=== PATIENT | female | born 1970 | race African-American/Black ===

== ENCOUNTER 2017-03-09 14:08 | Inpatient (IN) | payer OTHER ==
--- NOTE | 2017-03-09 14:27 | PDOC ---
History of Present Illness - General History Source: Patient, Other (Neurologist, Dr. Gunner Osborne) - History of Present Illness Initial Comments: 03/09/17 14:36 The patient is a year-old woman with a significant past medical history of hypertension, asthma, chronic obstructive pulmonary disease, seizure disorder, polysubstance abuse (heroine) who presents to the emergency department via EMS for further evaluation of seizures. As per Neurologist, Dr. Gunner Osborne, who is presently at the bedside, the patient walked to the office this morning for routine visit and seized approximately 5 times with positive urinary incontinence. EMS was activated. Upon ER arrival, patient was noted to be febrile to 99.9, hypertensive to 151/114, tachycardic 102 and hypoxic to 89% on room air. History of Present Illness is limited as patient is unresponsive. Allergies: Latex. Penicillin, Sulfamethoxazole, Trimethprim. Tomato Social History: Current some day cigarette smoker (approximately 5 cigarettes/ day). No EtOH use. History of heroine abuse. Started using PCP on and off ( approximately 4 bags)- 11 years ago <Mila Ruiz - Last Filed: 03/09/17 17:06> - General History Source: Patient, Family Exam Limitations: Clinical Condition <Leah Ann - Last Filed: 03/10/17 08:50> - General Chief Complaint: Seizure Stated Complaint: Seizure Time Seen by Provider: 03/09/17 14:16 Past History <Mila Ruiz - Last Filed: 03/09/17 17:06> - Past Medical History Anemia: No Asthma: Yes Cancer: No Cardiac Disorders: No CVA: No COPD: Yes Dementia: No Diabetes: No GI Disorders: No Disorders: No HTN: Yes Hypercholesterolemia: No Kidney Stones: No Suicide Attempt (Hx): No Seizures: Yes Thyroid Disease: No - Reproductive History PID: No - Psycho/Social/Smoking Cessation Hx Anxiety: No Suicidal Ideation: No Smoking Status: Yes Smoking History: Current some day smoker Have you smoked in the past 12 months: Yes Number of Cigarettes Smoked Daily: 5 'Breaking Loose' booklet given: 06/08/16 Hx Alcohol Use: No Drug/Substance Use Hx: Yes (pcp) Substance Use Type: None Hx Substance Use Treatment: Yes (Pt strted smoking PCP at 35 yo on and off, currently every day (4 bgs daily)) <Leah Ann - Last Filed: 03/10/17 08:50> - Past Medical History Allergies/Adverse Reactions: Allergies Allergy/AdvReac Type Severity Reaction Status Date / Time latex Allergy Intermediate Hives Verified 03/09/17 15:12 penicillin G Allergy Intermediate Hives Verified 03/09/17 15:12 sulfamethoxazole Allergy Intermediate Hives Verified 03/09/17 15:12 [From Bactrim] tomato [Tomato] Allergy Intermediate Swelling Verified 03/09/17 15:12 trimethoprim [From Bactrim] Allergy Intermediate Hives Verified 03/09/17 15:12 Unclassified Drug Allergy Intermediate HIVES---NUT Verified 03/09/17 15:12 S aspirin Allergy Unknown Verified 03/09/17 15:12 doxycycline Allergy Verified 03/09/17 15:12 Nut Flavor Allergy Verified 03/09/17 15:12 Sulfa (Sulfonamide Allergy Verified 03/09/17 15:12 Antibiotics) Home Medications: Ambulatory Orders Albuterol Sulfate [Proair Respiclick] 90 mcg IH DAILY 03/09/17 Baclofen 20 mg PO DAILY 03/09/17 Budesonide/Formeterol Fumarate [SYMBICORT 160/4.5mcg -] 1 inh PO BID 03/09/17 Divalproex Sodium [Depakote] 250 mg PO DAILY 03/09/17 Gabapentin [Neurontin] 100 mg PO DAILY 03/09/17 Lidocaine 4% Topical [Xylocaine 4% Topical] 1 applic MM DAILY 03/09/17 Montelukast Na [Singulair -] 10 mg PO HS 03/09/17 Naproxen [Naprosyn -] 500 mg PO BID 03/09/17 Quetiapine Fumarate [Seroquel -] 25 mg PO HS 03/09/17 Review of Systems - Review of Systems Able to Perform ROS?: No <Mila Ruiz - Last Filed: 03/09/17 17:06> *Physical Exam - Physical Exam Comments: 03/09/17 14:36 GENERAL: No response to painful stimuli. Breathing spontaneously. HEAD: Normal with no signs of trauma. EYES: Pupils are 4 mm bilaterally, responsive to light. Sclera anicteric, conjunctiva clear. ENT: Ears normal, nares patent, oropharynx clear without exudates. Dry mucous membranes. NECK: Normal range of motion, supple without lymphadenopathy, JVD, or masses. LUNGS: Breath sounds equal, clear to auscultation bilaterally. No wheezes, and no crackles. HEART:Tachycardic, Regular rate and rhythm, without murmur, rub or gallop. ABDOMEN: Soft, nontender, normoactive bowel sounds. No guarding, no rebound. EXTREMITIES: Normal range of motion, no edema. No clubbing or cyanosis. No erythema, or tenderness. NEUROLOGICAL: Limited. MUSCULOSKELETAL: Back non-tender to palpation, no CVA tenderness SKIN: Warm, Dry, normal turgor, no rashes or lesions noted. <Mila Ruiz - Last Filed: 03/09/17 17:06> Heart Score/ECG Review #1 ECG reviewed & interpreted by me at: 14:50 03/09/17 14:51 Twelve-lead EKG was performed and reviewed by me. There is normal sinus rhythm with a tachycardiac rate pf 115 bpm. The axis is normal. The intervals are normal. There are no ST or T wave abnormalities. <Leah Ann - Last Filed: 03/10/17 08:50> ED Treatment Course - LABORATORY CBC & Chemistry Diagram: 03/09/17 14:56 03/09/17 14:56 - RADIOLOGY Radiograph Interpretation: 03/09/17 16:14 EXAM: CT/HEAD CT WITHOUT CONTRAST Interpreted by Dr. Omar Pagan IMPRESSION: Since 06/05/2006, the ventricles and basal cisterns appear unremarkable. There is minimal volume loss which is nonspecific. No mass lesion , acute infarct or intracranial hemorrhage is identified. There is no shift of the midline structures. The calvarium is intact. Dural calcifications are noted in the right high convexity which is nonspecific. Visualized paranasal sinuses and mastoid air cells are well aerated EXAM: RAD/CHEST X-RAY PORTABLE Interpreted by Dr. Ilan Juarez IMPRESSION: A single frontal portable projection of the chest at 4:48 PM is submitted. The heart size is within normal limits. The lung marks are free of pulmonary infiltrates or pleural effusions. <Mila Ruiz - Last Filed: 03/09/17 17:06> - LABORATORY CBC & Chemistry Diagram: 03/10/17 06:15 03/10/17 06:15 <Leah Ann - Last Filed: 03/10/17 08:50> Medical Decision Making - Medical Decision Making 03/09/17 17:[address] Flaquito Jeffrey. 03/09/17 17:[address] Gunner Osborne. <Mila Ruiz - Last Filed: 03/09/17 17:06> - Medical Decision Making A portion of this note was documented by scribe services under my direction. I have reviewed the details of the note, within reason, and agree with the documentation with the following case summary and management plan written by me. Nursing documentation reviewed and incorporated into medical decision making 03/09/17 14:45 Pt presents via EMS from the Neurologist office Pt was seen in the ER by Dr Muir Briefly, pt has a history of seiuzures Pt reportedly had several seizures today (according to EMS 5 in total) No external trauma no nuchal rigidity Currently pt is post ictal and unable to give a history Pt is unresponsive to painful or verbal stimuli Pupils 4 mm bilaterally and responsive to light No deviation of gaze No nystagmus Will send labs Will send Utox Will give Tylenol for fever Will continunously re assess DD: status epilepticus, 03/09/17 17:[address] Shukla He would like pt to get Depakote 500mg IV and for her Depakote dose to increase While in his office, she had 3 seizures 03/09/17 17:23 Laboratory Tests 03/09/17 03/09/17 03/09/17 14:56 14:56 14:56 WBC 12.8 H D Hgb 13.1 Hct 39.3 Plt Count 320 D Neutrophils % 86.5 H Lymphocytes % 8.9 BUN 19 H D Creatinine 1.0 D Creatine Kinase Creatine Kinase Index Cancelled CK-MB (CK-2) Troponin I Valproic Acid 37.460 L Phencyclidine Screen 03/09/17 03/09/17 14:56 14:58 WBC Hgb Hct Plt Count Neutrophils % Lymphocytes % BUN Creatinine Creatine Kinase 183 Creatine Kinase Index CK-MB (CK-2) 1.914 Troponin I < 0.02 Valproic Acid Phencyclidine Screen Positive pt present in the ER states, pt had a single seizure yesterday but returned to her baseline As far as he knows, pt had been taking all her medications Clinical impression: status epilepticus, sub clinical seizures vs. post ictal state Pt remains unresponsive <Leah Ann - Last Filed: 03/10/17 08:50> *DC/Admit/Observation/Transfer - Attestations Scribe Attestion: 03/09/17 14:36 Documentation prepared by Mila Ruiz, acting as medical insurance coding specialist for Leah Ann MD. <Mila Ruiz - Last Filed: 03/09/17 17:06> - Discharge Dispostion Admit: Yes <Leah Ann - Last Filed: 03/10/17 08:50> Diagnosis at time of Disposition: Seizure disorder - Discharge Dispostion Condition at time of disposition: Stable - Referrals
[2017-03-09] MEDS ORDERED: SODIUM CHLORIDE 1,000 ML IV STA (14:30)
[2017-03-09] MEDS ORDERED: ACETAMINOPHEN INJECTION 100 ML IVPB ONE (14:38)
[2017-03-09] MEDS: ACETAMINOPHEN 1000 MG/100 ML VIAL (NON FORMULARY) IVPB ONE ×2 (14:48→14:49)
[2017-03-09 14:56] VITALS: BMI 21.4
[2017-03-09 15:17] LABS: VENOUS BLOOD GAS HCO3 29.4 meq/L (19-25)
[2017-03-09 15:18] LABS: VENOUS PH 7.39 (7.32-7.42)
[2017-03-09 15:23] LABS: URINE APPEARANCE CLEAR; URINE BILIRUBIN NEGATIVE (NEGATIVE); URINE COLOR LTYELLOW; URINE GLUCOSE (UA) NEGATIVE (NEGATIVE); URINE KETONE NEGATIVE (NEGATIVE); URINE NITRITE NEGATIVE (NEGATIVE); URINE PROTEIN NEGATIVE (NEGATIVE); URINE UROBILINOGEN NEGATIVE E.U./dl (0.2-1.0)
[2017-03-09 15:24] LABS: BASOPHIL 0.2 % (0-2.0); EOSINOPHIL 0.1 % (0-4.5); MCH 32.4 pg (25.7-33.7); MCHC 33.5 g/dl (32.0-36.0); MEAN CELL VOLUME 96.7 fl (80-96); MEAN PLT VOLUME 7.4 fl (7.5-11.1); NEUTROPHILS 86.5 % (42.8-82.8); PLATELET COUNT 320 K/MM3 (134-434); RDW 14.5 % (11.6-15.6); WHITE BLOOD COUNT 12.8 K/mm3 (4.0-10.0)
[2017-03-09 15:36] LABS: ALBUMIN 3.9 g/dl (3.4-5.0); BILIRUBIN,TOTAL 0.3 mg/dL (0.2-1.0); CALCIUM 10.1 mg/dL (8.5-10.1); COCKROFT - GAULT 61.574; TOT PROT 7.4 g/dl (6.4-8.2)
[2017-03-09 15:37] LABS: TROPONIN I < 0.02 ng/ml (0.00-0.05)
[2017-03-09 15:45] LABS: URINE BLOOD 2+ (NEGATIVE); URINE LEUK ESTERASE TRACE (NEGATIVE)
[2017-03-09 15:48] LABS: URINE RBC 11 /hpf (0-3); URINE WBC 4 /hpf (3-5)
[2017-03-09 16:08] LABS: URINE MARIJUANA THC NEGATIVE ng/ml (CUTOFF=50)
[2017-03-09] MEDS ORDERED: ONDANSETRON 4 MG/2 ML VIAL IVPB PRN (17:06)
--- NOTE | 2017-03-09 17:06 | HP ---
CHIEF COMPLAINT: Seizure PCP: None HISTORY OF PRESENT ILLNESS: This is a 46 year old female with a history of, asthma/COPD, seizure disorder, and polysubstance abuse brought into the ED by EMS. She reportedly walked in to the neurology office today asking to be seen, and then seized. EMS also noted seizure activity and urinary incontinence. The patient is unresponsive on my evaluation and history is obtained from the medical record as well as her neurologist, who met the patient in the ED. ER course was notable for: (1) SpO2 on arrival 89% (2) Head CT: no acute intracranial pathology (3) CXR: No acute process Recent Travel: PAST MEDICAL HISTORY: PAST SURGICAL HISTORY: Social History: History of heroin and PCP use Smoking: Current smoker (5 cigarettes/day) Alcohol: Unknown Drugs: PCP per urine tox, heroin per previous notes Family History: Allergies latex Allergy (Intermediate, Verified 03/09/17 15:12) Hives confirmed Margie Taylor RN penicillin G Allergy (Intermediate, Verified 03/09/17 15:12) Hives confirmed by Margie Taylor RN sulfamethoxazole [From Bactrim] Allergy (Intermediate, Verified 03/09/17 15:12) Hives Swelling & Esophageal irritation tomato [Tomato] Allergy (Intermediate, Verified 03/09/17 15:12) Swelling confimed by Margie Taylor RN 07/11/13 trimethoprim [From Bactrim] Allergy (Intermediate, Verified 03/09/17 15:12) Hives confirmed Margie Taylor RN 07/11/2013 Unclassified Drug Allergy (Intermediate, Verified 03/09/17 15:12) HIVES---NUTS NUTS aspirin Allergy (Unknown, Verified 03/09/17 15:12) confirmed Margie Taylor RN doxycycline Allergy (Verified 03/09/17 15:12) Nut Flavor Allergy (Verified 03/09/17 15:12) Sulfa (Sulfonamide Antibiotics) Allergy (Verified 03/09/17 15:12) HOME MEDICATIONS: Home Medications Medication Instructions Recorded Albuterol Sulfate [Proair 90 mcg IH DAILY 03/09/17 Respiclick] Baclofen 20 mg PO DAILY 03/09/17 Budesonide/Formeterol Fumarate 1 inh PO BID 03/09/17 [SYMBICORT 160/4.5mcg -] Divalproex Sodium [Depakote] 250 mg PO DAILY 03/09/17 Gabapentin [Neurontin] 100 mg PO DAILY 03/09/17 Lidocaine 4% Topical [Xylocaine 4% 1 applic MM DAILY 03/09/17 Topical] Montelukast Na [Singulair -] 10 mg PO HS 03/09/17 Naproxen [Naprosyn -] 500 mg PO BID 03/09/17 Quetiapine Fumarate [Seroquel -] 25 mg PO HS 03/09/17 REVIEW OF SYSTEMS Patient is unable to participate PHYSICAL EXAMINATION Vital Signs - 24 hr 03/09/17 03/09/17 03/09/17 14:52 15:08 16:53 Temperature 99.9 F H Pulse Rate 102 H Pulse Rate [ 85 82 Left] Respiratory 18 13 13 Rate Blood Pressure 151/114 Blood Pressure 125/85 118/95 [Arm] O2 Sat by Pulse 89 L 99 98 Oximetry (%) GENERAL: Obtunded. HEAD: Normal with no signs of trauma. EYES: Pupils equal, round and reactive to light, extraocular movements intact, sclera anicteric, conjunctiva clear. No lid lag. EARS, NOSE, THROAT: Ears normal, nares patent, oropharynx clear without exudates. Moist mucous membranes. NECK: Normal range of motion, supple without lymphadenopathy, JVD, or masses. LUNGS: Breath sounds equal, clear to auscultation bilaterally. No wheezes, and no crackles. No accessory muscle use. HEART: Regular rate and rhythm, normal S1 and S2 without murmur, rub or gallop. ABDOMEN: Soft, nontender, not distended, normoactive bowel sounds, no guarding, no rebound, no masses. No hepatomegaly or splenomegaly. MUSCULOSKELETAL: Normal range of motion at all joints. No bony deformities or tenderness. No CVA tenderness. UPPER EXTREMITIES: 2+ pulses, warm, well-perfused. No cyanosis. No clubbing. No peripheral edema. LOWER EXTREMITIES: 2+ pulses, warm, well-perfused. No calf tenderness. No peripheral edema. NEUROLOGICAL: E 1 V 1 M 1 = 3 SKIN: Warm, dry, normal turgor, no rashes or lesions noted, normal capillary refill. Laboratory Results - last 24 hr 03/09/17 03/09/17 03/09/17 14:56 14:56 14:56 WBC 12.8 H D RBC 4.06 Hgb 13.1 Hct 39.3 MCV 96.7 H MCHC 33.5 RDW 14.5 Plt Count 320 D MPV 7.4 L D Neutrophils % 86.5 H Lymphocytes % 8.9 Monocytes % 4.3 Eosinophils % 0.1 Basophils % 0.2 PTT (Actin FS) VBG pH POC VBG pCO2 POC VBG pO2 Mixed VBG HCO3 Sodium 144 Potassium 4.0 Chloride 102 Carbon Dioxide 29 Anion Gap 13 BUN 19 H D Creatinine 1.0 D Creat Clearance w eGFR 59.18 Random Glucose 104 D Lactic Acid Calcium 10.1 Total Bilirubin 0.3 D AST 23 D ALT 37 D Alkaline Phosphatase 68 D Creatine Kinase Creatine Kinase Index Cancelled CK-MB (CK-2) Troponin I Total Protein 7.4 Albumin 3.9 Urine Color Urine Appearance Urine pH Urine Protein Urine Glucose (UA) Urine Ketones Urine Blood Urine Nitrite Urine Bilirubin Urine Urobilinogen Ur Leukocyte Esterase Urine RBC Urine WBC Opiates Screen Methadone Screen Barbiturate Screen Valproic Acid 37.460 L Phencyclidine Screen Ur Amphetamines Screen MDMA (Ecstasy) Screen Benzodiazepines Screen Cocaine Screen U Marijuana (THC) Screen Blood Type Antibody Screen Spec Expiration Date 03/09/17 03/09/17 03/09/17 14:56 14:56 14:56 WBC RBC Hgb Hct MCV MCHC RDW Plt Count MPV Neutrophils % Lymphocytes % Monocytes % Eosinophils % Basophils % PTT (Actin FS) 34.9 H VBG pH POC VBG pCO2 POC VBG pO2 Mixed VBG HCO3 Sodium Potassium Chloride Carbon Dioxide Anion Gap BUN Creatinine Creat Clearance w eGFR Random Glucose Lactic Acid Calcium Total Bilirubin AST ALT Alkaline Phosphatase Creatine Kinase 183 Creatine Kinase Index 1.0 CK-MB (CK-2) 1.914 Troponin I < 0.02 Total Protein Albumin Urine Color Urine Appearance Urine pH Urine Protein Urine Glucose (UA) Urine Ketones Urine Blood Urine Nitrite Urine Bilirubin Urine Urobilinogen Ur Leukocyte Esterase Urine RBC Urine WBC Opiates Screen Methadone Screen Barbiturate Screen Valproic Acid Phencyclidine Screen Ur Amphetamines Screen MDMA (Ecstasy) Screen Benzodiazepines Screen Cocaine Screen U Marijuana (THC) Screen Blood Type O POSITIVE Antibody Screen Negative Spec Expiration Date 03/09/17 03/09/17 03/09/17 14:56 14:56 14:58 WBC RBC Hgb Hct MCV MCHC RDW Plt Count MPV Neutrophils % Lymphocytes % Monocytes % Eosinophils % Basophils % PTT (Actin FS) VBG pH POC VBG pCO2 POC VBG pO2 Mixed VBG HCO3 Sodium Potassium Chloride Carbon Dioxide Anion Gap BUN Creatinine Creat Clearance w eGFR Random Glucose Lactic Acid 1.348 Calcium Total Bilirubin AST ALT Alkaline Phosphatase Creatine Kinase Creatine Kinase Index CK-MB (CK-2) Troponin I Total Protein Albumin Urine Color Urine Appearance Urine pH Urine Protein Urine Glucose (UA) Urine Ketones Urine Blood Urine Nitrite Urine Bilirubin Urine Urobilinogen Ur Leukocyte Esterase Urine RBC Urine WBC Opiates Screen Negative Methadone Screen Negative Barbiturate Screen Negative Valproic Acid Phencyclidine Screen Positive Ur Amphetamines Screen Negative MDMA (Ecstasy) Screen Negative Benzodiazepines Screen Negative Cocaine Screen Negative U Marijuana (THC) Screen Negative Blood Type O POSITIVE Antibody Screen Cancelled Spec Expiration Date Cancelled 03/09/17 03/09/17 14:58 15:13 WBC RBC Hgb Hct MCV MCHC RDW Plt Count MPV Neutrophils % Lymphocytes % Monocytes % Eosinophils % Basophils % PTT (Actin FS) VBG pH 7.39 POC VBG pCO2 49.9 POC VBG pO2 65.8 H Mixed VBG HCO3 29.4 H Sodium Potassium Chloride Carbon Dioxide Anion Gap BUN Creatinine Creat Clearance w eGFR Random Glucose Lactic Acid Calcium Total Bilirubin AST ALT Alkaline Phosphatase Creatine Kinase Creatine Kinase Index CK-MB (CK-2) Troponin I Total Protein Albumin Urine Color Ltyellow Urine Appearance Clear Urine pH 5.0 Urine Protein Negative Urine Glucose (UA) Negative Urine Ketones Negative Urine Blood 2+ H Urine Nitrite Negative Urine Bilirubin Negative Urine Urobilinogen Negative Ur Leukocyte Esterase Trace H D Urine RBC 11 Urine WBC 4 Opiates Screen Methadone Screen Barbiturate Screen Valproic Acid Phencyclidine Screen Ur Amphetamines Screen MDMA (Ecstasy) Screen Benzodiazepines Screen Cocaine Screen U Marijuana (THC) Screen Blood Type Antibody Screen Spec Expiration Date ASSESSMENT/PLAN: 46 year old female s/p seizures, obtunded. Problem List - Problem (1) Unresponsive state Assessment/Plan: -Thought to be secondary to multiple seizures prior to arrival; follow up valproic acid and lamotrigine levels -Unknown if patient has true seizure disorder vs. pseudoseizures -remains unresponsive even to sternal rub >2h after arrival to ED, seems inconsistent with post-ictal state -was not given any AEDs, so obtunded state cannot be attributed to this -Must rule out other causes of altered mental status, including toxic metabolic encephalopathy -follow up blood and urine cultures -follow fever/WBC curve (WBC elevated at 12.8, may be secondary to seizure) -Drug screen is positive for PCP and prior notes indicate history of heroin abuse -Trial of Narcan 0.4mg IVP now -NPO -Admit to ICU for airway monitoring (GCS 3, but is maintaining airway currently) , neuro checks q1h Code(s): R41.89 - OTH SYMPTOMS AND SIGNS W COGNITIVE FUNCTIONS AND AWARENESS (2) Seizure disorder Assessment/Plan: -Re-start lamotrigine/valproic acid when taking po -Ativan 1mg q4h prn seizure -Neurology evaluated in ED and will follow Code(s): G40.909 - EPILEPSY, UNSP, NOT INTRACTABLE, WITHOUT STATUS EPILEPTICUS (3) COPD (chronic obstructive pulmonary disease) with emphysema Assessment/Plan: -DuoNebs prn -Resume home Symbicort when alert Code(s): J43.9 - EMPHYSEMA, UNSPECIFIED (4) HTN (hypertension) Assessment/Plan: -BP at goal, no home meds listed -Observe Code(s): I10 - ESSENTIAL (PRIMARY) HYPERTENSION (5) DVT prophylaxis Assessment/Plan: -Moderate risk -Lovenox 40mg sq daily Code(s): QDQ9300 - Visit type - Emergency Visit Emergency Visit: Yes ED Registration Date: 03/09/17 Care time: The patient presented to the Emergency Department on the above date and was hospitalized for further evaluation of their emergent condition. - New Patient This patient is new to me today: Yes Date on this admission: 03/11/17 - Critical Care Critical Care patient: Yes Total Critical Care Time (in minutes): 35 Critical Care Statement: The care of this patient involved high complexity decision making to prevent further life threatening deterioration of the patient 's condition and/or to evalute & treat vital organ system(s) failure or risk of failure.
[2017-03-09] MEDS ORDERED: SODIUM CHLORIDE 1,000 ML IV SCH (17:15)
[2017-03-09] MEDS ORDERED: VALPROATE SODIUM 500 MG/5 ML VIAL IVPB ONE (17:21)
[2017-03-09] MEDS ORDERED: NALOXONE HCL 0.4 MG/ML VIAL IVPUSH ONE (17:26)
--- NOTE | 2017-03-09 17:27 | CONSULT ---
Consult - text type - Consultation Consultation Note: Neurology History of Present Illness The patient is a 46 year-old woman with a significant past medical history of hypertension, asthma, chronic obstructive pulmonary disease, seizure disorder, polysubstance abuse (heroine) who presents to the emergency department via EMS for further evaluation of seizures. She was at my office but not known to me from my recollection, last seen by LAB ANIMAL TECHNICIAN in the office, had presented there today to be seen and then had seizure event in the office and sent to hospital. Per EMS had multiple seizure events. in ER was obtunded and not following commands. Appears to be postictal, seizures self resolved without requiring medication. Her vitals are hypertensive, tachy, and utox showed positive PCP. CT head completed and patient seen by me in ER. Past History - Past Medical History Anemia: No Asthma: Yes Cancer: No Cardiac Disorders: No CVA: No COPD: Yes Dementia: No Diabetes: No GI Disorders: No Disorders: No HTN: Yes Hypercholesterolemia: No Kidney Stones: No Suicide Attempt (Hx): No Seizures: Yes Thyroid Disease: No - Reproductive History PID: No - Psycho/Social/Smoking Cessation Hx Anxiety: No Suicidal Ideation: No Smoking Status: Yes Smoking History: Current some day smoker Have you smoked in the past 12 months: Yes Number of Cigarettes Smoked Daily: 5 'Breaking Loose' booklet given: 06/08/16 Hx Alcohol Use: No Drug/Substance Use Hx: Yes (pcp) Substance Use Type: None Hx Substance Use Treatment: Yes (Pt strted smoking PCP at 35 yo on and off, currently every day (4 bgs daily)) - Past Medical History Allergies/Adverse Reactions: Allergies Allergy/AdvReac Type Severity Reaction Status Date / Time latex Allergy Intermediate Hives Verified 03/09/17 15:12 penicillin G Allergy Intermediate Hives Verified 03/09/17 15:12 sulfamethoxazole Allergy Intermediate Hives Verified 03/09/17 15:12 [From Bactrim] tomato [Tomato] Allergy Intermediate Swelling Verified 03/09/17 15:12 trimethoprim [From Bactrim] Allergy Intermediate Hives Verified 03/09/17 15:12 Unclassified Drug Allergy Intermediate HIVES---NUT Verified 03/09/17 15:12 S aspirin Allergy Unknown Verified 03/09/17 15:12 doxycycline Allergy Verified 03/09/17 15:12 Nut Flavor Allergy Verified 03/09/17 15:12 Sulfa (Sulfonamide Allergy Verified 03/09/17 15:12 Antibiotics) Home Medications: Ambulatory Orders Albuterol Sulfate [Proair Respiclick] 90 mcg IH DAILY 03/09/17 Baclofen 20 mg PO DAILY 03/09/17 Budesonide/Formeterol Fumarate [SYMBICORT 160/4.5mcg -] 1 inh PO BID 03/09/17 Divalproex Sodium [Depakote] 250 mg PO DAILY 03/09/17 Gabapentin [Neurontin] 100 mg PO DAILY 03/09/17 Lidocaine 4% Topical [Xylocaine 4% Topical] 1 applic MM DAILY 03/09/17 Montelukast Na [Singulair -] 10 mg PO HS 03/09/17 Naproxen [Naprosyn -] 500 mg PO BID 03/09/17 Quetiapine Fumarate [Seroquel -] 25 mg PO HS 03/09/17 Review of Systems - Review of Systems Able to Perform ROS?: No *Physical Exam Vital Signs Temperature 99.9 F H 03/09/17 14:52 Pulse Rate 82 03/09/17 16:53 Respiratory Rate 13 03/09/17 16:53 Blood Pressure 118/95 03/09/17 16:53 O2 Sat by Pulse Oximetry (%) 98 03/09/17 16:53 GENERAL: No response to painful stimuli. Breathing spontaneously. HEAD: Normal with no signs of trauma. EYES: Pupils are 4 mm bilaterally, responsive to light. Sclera anicteric, conjunctiva clear. ENT: Ears normal, nares patent, oropharynx clear without exudates. Dry mucous membranes. NECK: Normal range of motion, supple without lymphadenopathy, JVD, or masses. LUNGS: Breath sounds equal, clear to auscultation bilaterally. No wheezes, and no crackles. HEART:Tachycardic, Regular rate and rhythm, without murmur, rub or gallop. ABDOMEN: Soft, nontender, normoactive bowel sounds. No guarding, no rebound. EXTREMITIES: Normal range of motion, no edema. No clubbing or cyanosis. No erythema, or tenderness. NEUROLOGICAL: Not following commands, pupils responsive 3mm to 2mm, not responding to painful stimulation MUSCULOSKELETAL: Back non-tender to palpation, no CVA tenderness SKIN: Warm, Dry, normal turgor, no rashes or lesions noted. CBCD WBC 12.8 K/mm3 (4.0-10.0) H D 03/09/17 14:56 RBC 4.06 M/mm3 (3.60-5.2) 03/09/17 14:56 Hgb 13.1 GM/dL (10.7-15.3) 03/09/17 14:56 Hct 39.3 % (32.4-45.2) 03/09/17 14:56 MCV 96.7 fl (80-96) H 03/09/17 14:56 MCHC 33.5 g/dl (32.0-36.0) 03/09/17 14:56 RDW 14.5 % (11.6-15.6) 03/09/17 14:56 Plt Count 320 K/MM3 (134-434) D 03/09/17 14:56 MPV 7.4 fl (7.5-11.1) L D 03/09/17 14:56 CMP Sodium 144 mmol/L (136-145) 03/09/17 14:56 Potassium 4.0 mmol/L (3.5-5.1) 03/09/17 14:56 Chloride 102 mmol/L (98-107) 03/09/17 14:56 Carbon Dioxide 29 mmol/L (21-32) 03/09/17 14:56 Anion Gap 13 (8-16) 03/09/17 14:56 BUN 19 mg/dL (7-18) H D 03/09/17 14:56 Creatinine 1.0 mg/dL (0.55-1.02) D 03/09/17 14:56 Creat Clearance w eGFR 59.18 (>60) 03/09/17 14:56 Calcium 10.1 mg/dL (8.5-10.1) 03/09/17 14:56 Total Bilirubin 0.3 mg/dL (0.2-1.0) D 03/09/17 14:56 AST 23 U/L (15-37) D 03/09/17 14:56 ALT 37 U/L (12-78) D 03/09/17 14:56 Alkaline Phosphatase 68 U/L (45-117) D 03/09/17 14:56 Total Protein 7.4 g/dl (6.4-8.2) 03/09/17 14:56 Albumin 3.9 g/dl (3.4-5.0) 03/09/17 14:56 - RADIOLOGY Radiograph Interpretation: 03/09/17 16:14 EXAM: CT/HEAD CT WITHOUT CONTRAST Interpreted by Dr. Omar Pagan IMPRESSION: Since 06/05/2006, the ventricles and basal cisterns appear unremarkable. There is minimal volume loss which is nonspecific. No mass lesion , acute infarct or intracranial hemorrhage is identified. There is no shift of the midline structures. The calvarium is intact. Dural calcifications are noted in the right high convexity which is nonspecific. Visualized paranasal sinuses and mastoid air cells are well aerated EXAM: RAD/CHEST X-RAY PORTABLE Interpreted by Dr. Ilan Juarez IMPRESSION: A single frontal portable projection of the chest at 4:48 PM is submitted. The heart size is within normal limits. The lung marks are free of pulmonary infiltrates or pleural effusions. Medical Decision Making 46 year-old woman with a significant past medical history of hypertension, asthma, chronic obstructive pulmonary disease, seizure disorder, polysubstance abuse (heroine) who presents to the emergency department via EMS for further evaluation of seizures. She was at my office but not known to me from my recollection, last seen by LAB ANIMAL TECHNICIAN in the office, had presented there today to be seen and then had seizure event in the office and sent to hospital. Per EMS had multiple seizure events. in ER was obtunded and not following commands. Appears to be postictal, seizures self resolved without requiring medication. Her vitals are hypertensive, tachy, and utox showed positive PCP. CT head completed and patient seen by me in ER. Toxic Metabolic encephalopathy vs drug induced vs postictal 2/2 to seizures Patient on Lamictal 100mg daily per last office note from LAB ANIMAL TECHNICIAN Would restart this when patient able to take PO Patient to go to ICU for close monitoring Intubation if needed Follow up blood cultures Ativan for seizure if needed
[2017-03-09] MEDS ORDERED: morphine CARPU-JECT 4 MG/1 ML DISP.SYRIN ONE (18:03)
[2017-03-10] MEDS: DEXTROSE 5%-NORMAL SALINE 1,000 ML IV SCH ×2 (00:55→14:34)
[2017-03-10] MEDS ORDERED: ALBUTEROL SO4 2.5/IPRATROPIUM 0.5 INH SOL 3 ML VIAL.NEB. NEB ONE (04:10)
[2017-03-10] MEDS: ALBUTEROL SO4 2.5/IPRATROPIUM 0.5 INH SOL 3 ML VIAL.NEB. NEB SCH ×4 (04:20→23:46)
[2017-03-10 06:34] LABS: BASOPHIL 0.3 % (0-2.0); EOSINOPHIL 1.4 % (0-4.5); MCH 32.8 pg (25.7-33.7); MCHC 33.1 g/dl (32.0-36.0); MEAN CELL VOLUME 99.1 fl (80-96); MEAN PLT VOLUME 7.3 fl (7.5-11.1); NEUTROPHILS 69.3 % (42.8-82.8); PLATELET COUNT 277 K/MM3 (134-434); RDW 14.6 % (11.6-15.6); WHITE BLOOD COUNT 10.8 K/mm3 (4.0-10.0)
[2017-03-10 07:24] LABS: ALBUMIN 3.2 g/dl (3.4-5.0); ALK PHOS 57 U/L (45-117); ANION GAP 8 (8-16); BILIRUBIN,TOTAL 0.5 mg/dL (0.2-1.0); CALCIUM 8.8 mg/dL (8.5-10.1); CO2 30 mmol/L (21-32); CREATININE 0.8 mg/dL (0.55-1.02); GLUCOSE,RANDOM 80 mg/dL (74-106); SGPT/ALT 28 U/L (12-78); TOT PROT 6.4 g/dl (6.4-8.2)
[2017-03-10 07:27] LABS: MAGNESIUM 2.2 mg/dL (1.8-2.4); SGOT/AST 21 U/L (15-37)
[2017-03-10] MEDS ORDERED: MIDAZOLAM HCL 2 MG/2 ML SINGLE DOSE VIAL ONE (08:07)
[2017-03-10] MEDS ORDERED: MIDAZOLAM HCL 5 MG/1 ML Single Dose Vial IVPUSH ONE ×2 (08:08→11:37)
[2017-03-10] MEDS ORDERED: PHENYTOIN SODIUM 100 MG/2 ML VIAL IVPB ONE (08:09)
--- NOTE | 2017-03-10 08:11 | ED.PROV ---
Physicial Exam I saw and examined the patient. - Vital Signs Last Vital Signs Temp Pulse Resp BP Pulse Ox 99.9 F H 66 20 156/106 98 03/09/17 14:52 03/10/17 03:40 03/10/17 03:40 03/10/17 03:40 03/10/17 03:40 - Physical Exam Reason for Response: 03/10/17 08:10 I was notified by nurses of seizure activity The patient has rapid eye movements and facial posturing, with lips deviating to the left and rigidity Will administer 5 mg of IV Versed for immediate antiseizure support Will load with [facility] Hospitalist provider aware and will communicate with neurology 03/10/17 08:28 Seizure activity has abated Airway intact
[2017-03-10] MEDS ORDERED: PNEUMOC 13-VAL CONJ-DIP CRM/PF 0.5 ML DISP.SYRIN IM ONE (10:38)
--- NOTE | 2017-03-10 11:16 | PN ---
Progress Note (short form) - Note Progress Note: Neurology History of Present Illness The patient is a 46 year-old woman with a significant past medical history of hypertension, asthma, chronic obstructive pulmonary disease, seizure disorder, polysubstance abuse (heroine) who presents to the emergency department via EMS for further evaluation of seizures. She was at my office but not known to me from my recollection, previously patient of Dr. Ponce and last seen by ENGINEERING GROUP MANAGER in the office, had presented there to be seen and then had seizure event in the office and sent to hospital. Per EMS had multiple seizure events. in ER was obtunded and not following commands. Appeared to be postictal, seizures self resolved without requiring medication. Was obtunded yesterday and this AM with roving eye movements and myoclonic facial jerking. Patient was given Versed and loaded with Dilantin. I continued Dilantin 300mg (next dose tonight as patient loaded with 1gm this AM) and can be daily. Was waking up for me in the ER today. Active Medications Albuterol/Ipratropium (Duoneb -) 1 amp NEB QIDR [facility] Last Admin: 03/10/17 06:01 Dose: 1 amp Chlorhexidine Gluconate (Hibiclens For Decolonization -) 1 applic TP HS [facility] Enoxaparin Sodium (Lovenox -) 40 mg SQ DAILY [facility] Dextrose/Sodium Chloride (D5-Ns -) 1,000 mls @ 125 mls/hr IV ASDIR [facility] Last Admin: 03/10/17 00:55 Dose: 125 mls/hr Lorazepam (Ativan Injection -) 1 mg IVPUSH Q2H PRN PRN Reason: seizure Mupirocin (Bactroban Ointment (For Decolonization) -) 1 applic NS BID [facility] Stop: 03/14/17 21:59 Ondansetron HCl (Zofran Injection) 4 mg IVPB Q8H PRN PRN Reason: NAUSEA Phenytoin Sodium (Dilantin Injection -) 300 mg IVPB DAILY [facility] Pneumococcal 13-Valent Conj Vacc (Prevnar 13 Syringe -) 0.5 ml IM .ONCE ONE Stop: 03/10/17 10:39 *Physical Exam Vital Signs Period Temp Pulse Resp BP Sys/Slade Pulse Ox Last 24 Hr 98 F-99.9 F 66-102 13-20 103-156/80-114 89-100 GENERAL: No response to painful stimuli. Breathing spontaneously. HEAD: Normal with no signs of trauma. EYES: Pupils are 4 mm bilaterally, responsive to light. Sclera anicteric, conjunctiva clear. ENT: Ears normal, nares patent, oropharynx clear without exudates. Dry mucous membranes. NECK: Normal range of motion, supple without lymphadenopathy, JVD, or masses. LUNGS: Breath sounds equal, clear to auscultation bilaterally. No wheezes, and no crackles. HEART:Tachycardic, Regular rate and rhythm, without murmur, rub or gallop. ABDOMEN: Soft, nontender, normoactive bowel sounds. No guarding, no rebound. EXTREMITIES: Normal range of motion, no edema. No clubbing or cyanosis. No erythema, or tenderness. NEUROLOGICAL: Not following commands, pupils responsive 3mm to 2mm, not responding to painful stimulation MUSCULOSKELETAL: Back non-tender to palpation, no CVA tenderness SKIN: Warm, Dry, normal turgor, no rashes or lesions noted. CBCD WBC 10.8 K/mm3 (4.0-10.0) H 03/10/17 06:15 RBC 4.10 M/mm3 (3.60-5.2) 03/10/17 06:15 Hgb 13.5 GM/dL (10.7-15.3) 03/10/17 06:15 Hct 40.7 % (32.4-45.2) 03/10/17 06:15 MCV 99.1 fl (80-96) H 03/10/17 06:15 MCHC 33.1 g/dl (32.0-36.0) 03/10/17 06:15 RDW 14.6 % (11.6-15.6) 03/10/17 06:15 Plt Count 277 K/MM3 (134-434) 03/10/17 06:15 MPV 7.3 fl (7.5-11.1) L 03/10/17 06:15 CMP Sodium 142 mmol/L (136-145) 03/10/17 06:15 Potassium 3.9 mmol/L (3.5-5.1) 03/10/17 06:15 Chloride 104 mmol/L (98-107) 03/10/17 06:15 Carbon Dioxide 30 mmol/L (21-32) 03/10/17 06:15 Anion Gap 8 (8-16) 03/10/17 06:15 BUN 14 mg/dL (7-18) D 03/10/17 06:15 Creatinine 0.8 mg/dL (0.55-1.02) 03/10/17 06:15 Creat Clearance w eGFR > 60 (>60) 03/10/17 06:15 Calcium 8.8 mg/dL (8.5-10.1) 03/10/17 06:15 Total Bilirubin 0.5 mg/dL (0.2-1.0) D 03/10/17 06:15 AST 21 U/L (15-37) 03/10/17 06:15 ALT 28 U/L (12-78) D 03/10/17 06:15 Alkaline Phosphatase 57 U/L (45-117) 03/10/17 06:15 Total Protein 6.4 g/dl (6.4-8.2) 03/10/17 06:15 Albumin 3.2 g/dl (3.4-5.0) L 03/10/17 06:15 - RADIOLOGY Radiograph Interpretation: 03/09/17 16:14 EXAM: CT/HEAD CT WITHOUT CONTRAST Interpreted by Dr. Omar Pagan IMPRESSION: Since 06/05/2006, the ventricles and basal cisterns appear unremarkable. There is minimal volume loss which is nonspecific. No mass lesion , acute infarct or intracranial hemorrhage is identified. There is no shift of the midline structures. The calvarium is intact. Dural calcifications are noted in the right high convexity which is nonspecific. Visualized paranasal sinuses and mastoid air cells are well aerated EXAM: RAD/CHEST X-RAY PORTABLE Interpreted by Dr. Ilan Juarez IMPRESSION: A single frontal portable projection of the chest at 4:48 PM is submitted. The heart size is within normal limits. The lung marks are free of pulmonary infiltrates or pleural effusions. Medical Decision Making 46 year-old woman with a significant past medical history of hypertension, asthma, chronic obstructive pulmonary disease, seizure disorder, polysubstance abuse (heroine) who presents to the emergency department via EMS for further evaluation of seizures. She was at my office but not known to me from my recollection, last seen by ENGINEERING GROUP MANAGER in the office, had presented there today to be seen and then had seizure event in the office and sent to hospital. Per EMS had multiple seizure events. Toxic Metabolic encephalopathy vs drug induced vs postictal 2/2 to seizures Patient on Lamictal 100mg daily per last office note from ENGINEERING GROUP MANAGER Would restart this when patient able to take PO Patient to go to ICU for close monitoring Intubation if needed Follow up blood cultures Given dose of Versed this AM and loaded with 1gm Dilantin Added 300mg Dilantin standing daily dose starting tonight Waking up this AM May be effect of PCP and unsure if synthetic substances Recommend consult Dr. Alen Antony for substance abuse Medical mgmt/optimization
--- NOTE | 2017-03-10 11:35 | EKG ---
Test Reason : Blood Pressure : / mmHG Vent. Rate : 115 BPM Atrial Rate : 115 BPM P-R Int : 154 ms QRS Dur : 080 ms QT Int : 330 ms P-R-T Axes : 088 072 059 degrees QTc Int : 456 ms SINUS TACHYCARDIA ANTEROSEPTAL INFARCT (CITED ON OR BEFORE 09-MAR-2017) ABNORMAL ECG WHEN COMPARED WITH ECG OF 05-MAR-2012 09:03, QUESTIONABLE CHANGE IN INITIAL [employer] OF [employer]TERIOR LEADS Confirmed by ELKE OLMEDO MD ([id number]) on 03/10/2017 11:34:44 AM Referred By: Confirmed By:ELKE OLMEDO MD
--- NOTE | 2017-03-10 11:50 | CONSULT ---
Consultation: CONSULT REQUEST: We have been asked to medically evaluate this patient for acute grand-mal seizures. HISTORY OF PRESENT ILLNESS: Patient is obtunded with depakote administration s/p multiple grand-mal seizures. history obtained from chart review. 46 yr old woman with hx of grand-mal seizures, polysubstance abuse(heroin, PCP) , HTN, COPD BIBEMS from neurologist's office (dr. mulligan) due to multiple seizures(3 in office, per EMS 5) with urinary incontinence in his office yesterday afternoon after walking in for a routine follow-up visit. Per ED record, says she had one seizure yesterday at home and returned to her baseline. ED course: Head CT w/o contrast: no mass/infarct/hemorrhage, Cxy without infiltrate/effusions. REVIEW OF SYSTEMS: unable to complete secondary to patient's condition. PHYSICAL EXAMINATION Vital Signs - 24 hr 03/09/17 03/10/17 03/10/17 22:30 01:59 03:40 Temperature Pulse Rate Pulse Rate [ 73 68 66 Left] Pulse Rate [ Right Radial] Respiratory 14 16 20 Rate Blood Pressure Blood Pressure 129/96 142/99 156/106 [Arm] Blood Pressure [Left Arm] O2 Sat by Pulse 100 100 98 Oximetry (%) 03/10/17 03/10/17 03/10/17 07:20 08:10 09:20 Temperature 98 F Pulse Rate Pulse Rate [ 66 Left] Pulse Rate [ 78 83 87 Right Radial] Respiratory 20 18 18 Rate Blood Pressure Blood Pressure [Arm] Blood Pressure 144/98 138/99 86/72 [Left Arm] O2 Sat by Pulse 99 98 99 Oximetry (%) 03/10/17 03/10/17 03/10/17 09:40 10:25 10:46 Temperature 98 F Pulse Rate 83 Pulse Rate [ Left] Pulse Rate [ 81 78 Right Radial] Respiratory 20 20 20 Rate Blood Pressure 103/80 Blood Pressure [Arm] Blood Pressure 100/67 121/75 [Left Arm] O2 Sat by Pulse 98 99 99 Oximetry (%) 03/10/17 11:30 Temperature Pulse Rate Pulse Rate [ Left] Pulse Rate [ 76 Right Radial] Respiratory 20 Rate Blood Pressure Blood Pressure [Arm] Blood Pressure 125/75 [Left Arm] O2 Sat by Pulse 99 Oximetry (%) GENERAL: obtunded. HEAD: Normal with no signs of trauma. no lacerations/abrasions/bony deformities. EYES: Pupils equal, round and reactive to light, 4mm, sclera anicteric, conjunctiva clear. EARS, NOSE, THROAT: Ears normal, nares patent, oropharynx clear without exudates , no erythema, no tongue lacerations. Moist mucous membranes. NECK: Normal range of motion, supple without lymphadenopathy, JVD, or masses. LUNGS: Breath sounds equal, clear to auscultation bilaterally. No wheezes, and no crackles. No accessory muscle use. HEART: Regular rate and rhythm, normal S1 and S2 without murmur, rub or gallop. ABDOMEN: Soft, not distended, normoactive bowel sounds, no masses. MUSCULOSKELETAL: Normal range of motion at all joints. No bony deformities or tenderness. UPPER EXTREMITIES: 2+ pulses, warm, well-perfused. No cyanosis. No clubbing. Cap refill <2 seconds. No peripheral edema. LOWER EXTREMITIES: 2+ pulses, warm, well-perfused. No peripheral edema. NEUROLOGICAL: obtunded, GCS 3. babinski negative. nonresponsive to verbal or noxious stimuli SKIN: Warm, dry, normal turgor, no rashes or lesions noted. Laboratory Results - last 24 hr 03/09/17 03/10/17 03/10/17 22:42 06:15 06:15 WBC 10.8 H RBC 4.10 Hgb 13.5 Hct 40.7 MCV 99.1 H MCHC 33.1 RDW 14.6 Plt Count 277 MPV 7.3 L Neutrophils % 69.3 Lymphocytes % 21.2 D Monocytes % 7.8 D Eosinophils % 1.4 D Basophils % 0.3 Sodium 142 Potassium 3.9 Chloride 104 Carbon Dioxide 30 Anion Gap 8 BUN 14 D Creatinine 0.8 Creat Clearance w eGFR > 60 POC Glucometer [id number] Random Glucose 80 D Calcium 8.8 Magnesium 2.2 D Total Bilirubin 0.5 D AST 21 ALT 28 D Alkaline Phosphatase 57 Total Protein 6.4 Albumin 3.2 L Active Medications Generic Name Dose Route Start Last Admin Trade Name Freq PRN Reason Stop Dose Admin Albuterol/Ipratropium 1 amp 03/10/17 00:00 03/10/17 06:01 Duoneb - NEB 1 amp QIDR [facility] Administration Chlorhexidine Gluconate 1 applic 03/09/17 22:00 Hibiclens For Decolonization - TP HS [facility] Enoxaparin Sodium 40 mg 03/10/17 10:00 Lovenox - SQ DAILY [facility] Dextrose/Sodium Chloride 1,000 mls @ 125 mls/hr 03/10/17 00:45 03/10/17 00:55 D5-Ns - IV 125 mls/hr ASDIR [facility] Administration Lorazepam 1 mg 03/09/17 17:04 Ativan Injection - IVPUSH Q2H PRN seizure Midazolam HCl 10 mg 03/10/17 11:37 Versed - IVPUSH 03/10/17 11:38 ONCE ONE Mupirocin 1 applic 03/09/17 22:00 Bactroban Ointment (For Decolonization) - NS 03/14/17 21:59 BID [facility] Ondansetron HCl 4 mg 03/09/17 17:06 Zofran Injection IVPB Q8H PRN NAUSEA Phenytoin Sodium 300 mg 03/10/17 20:00 Dilantin Injection - IVPB DAILY [facility] Pneumococcal 13-Valent Conj Vacc 0.5 ml 03/10/17 10:38 Prevnar 13 Syringe - IM 03/10/17 10:39 .ONCE ONE ASSESSMENT/PLAN: 46 yr old woman with seizure d/o, polysubstance abuse, HTN, presents with multiple grand-mal seizures, currently in ICU obtunded but able to protect airway. - received versed, ativan, dilantin in ED - s/p narcan in ED with no effect Neurological Grand-mal seizure; valproic acid and lamictal levels pending. suspicious for toxic metabolic encephalopathy(utox + for pcp), medication non-compliance or infectious cause for seizures. AMS - likely post-ictal or due to versed, neuro checks q1h for mental status changes depakoate dilantin 300mg IVPB daily ativan 1mg q4hr prn lamictal 100mg po - to be resumed when pt able to tolerate po or via NGT when possible. IVF D5/NS @125ml/hr currently able to protect airway, low threshold for intubation should pt become hypoxic or status epilepticus, aspiration precautions consult: Dr. mulligan Infectious Disease blood and urine cx pending, observe of abx pending results monitor for fevers, currently afebrile Pulmonary nasal cannula 2lpm duonebs QID GI zofran 4mg q8h prn for nausea Cardiovascular HTN - controlled no home meds listed, will initated anti-HTN if SBp>160 tachycardic, improving, continue IVF DVT prophylaxis with SCD's for now due to fall-risk/risk for injury during edwina- clonic seizure event Diet: NPO Dispo: We will continue to follow the patient. Thank you for this consultative opportunity. Visit type - Emergency Visit Emergency Visit: No - New Patient This patient is new to me today: Yes Date on this admission: 03/10/17 - Critical Care Critical Care patient: Yes Total Critical Care Time (in minutes): 40 Critical Care Statement: The care of this patient involved high complexity decision making to prevent further life threatening deterioration of the patient 's condition and/or to evalute & treat vital organ system(s) failure or risk of failure.
--- NOTE | 2017-03-10 13:14 | MSN ---
Progress Note (short form) - Note Progress Note: Saw patient this AM. Patient was not alert and was unresponsive to both verbal and tactile stimuli. Patient had another seizure episode at around 8am while I was present. Patient had a left sided facial droop, was mildly judith, and was rigid throughout. Patient was given 5 mg of Versed, followed by Dilantin. Patient's utox was positive for PCP and her Depakote levels were sub- therapeutic. Lamictal levels are still pending, Patient was transferred to the ICU and had another seizure episode. Patient was given a 10mg IV push of Versed. Patient was then intubated to protect airway. Post seizure blood work and ABG pending. Patient to have a repeat CT scan of head for further evaluation. Continue to monitor patient in ICU. Current Medications Generic Name Dose Route Start Last Admin Trade Name Freq PRN Reason Stop Dose Admin Albuterol/Ipratropium 1 amp 03/10/17 00:00 03/10/17 06:01 Duoneb - NEB 1 amp QIDR ERNESTINE Administration Chlorhexidine Gluconate 1 applic 03/10/17 22:00 Hibiclens For Decolonization - TP HS ERNESTINE Enoxaparin Sodium 40 mg 03/10/17 10:00 Lovenox - SQ DAILY ERNESTINE Dextrose/Sodium Chloride 1,000 mls @ 125 mls/hr 03/10/17 00:45 03/10/17 00:55 D5-Ns - IV 125 mls/hr ASDIR ERNESTINE Administration Lorazepam 1 mg 03/09/17 17:04 Ativan Injection - IVPUSH Q2H PRN seizure Mupirocin 1 applic 03/09/17 22:00 Bactroban Ointment (For Decolonization) - NS 03/14/17 21:59 BID ERNESTINE Ondansetron HCl 4 mg 03/09/17 17:06 Zofran Injection IVPB Q8H PRN NAUSEA Phenytoin Sodium 300 mg 03/10/17 20:00 Dilantin Injection - IVPB DAILY ERNESTINE Pneumococcal 13-Valent Conj Vacc 0.5 ml 03/10/17 10:38 Prevnar 13 Syringe - IM 03/10/17 10:39 .ONCE ONE Vital Signs Period Temp Pulse Resp BP Sys/Slade Pulse Ox Last 24 Hr 98 F-99.9 F 66-102 13-20 86-156/67-114 89-100 PHYSICAL EXAM GENERAL: Not alert, oriented. 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, hyporeflexic (biceps and patellar) EXTREMITIES: 2+pulses bilaterally, no edema, well perfused Laboratory Results - last 24 hr 03/09/17 03/09/17 03/09/17 14:56 14:56 14:56 WBC 12.8 H D RBC 4.06 Hgb 13.1 Hct 39.3 MCV 96.7 H MCHC 33.5 RDW 14.5 Plt Count 320 D MPV 7.4 L D Neutrophils % 86.5 H Lymphocytes % 8.9 Monocytes % 4.3 Eosinophils % 0.1 Basophils % 0.2 PTT (Actin FS) VBG pH POC VBG pCO2 POC VBG pO2 Mixed VBG HCO3 Sodium 144 Potassium 4.0 Chloride 102 Carbon Dioxide 29 Anion Gap 13 BUN 19 H D Creatinine 1.0 D Creat Clearance w eGFR 59.18 POC Glucometer Random Glucose 104 D Lactic Acid Calcium 10.1 Magnesium Total Bilirubin 0.3 D AST 23 D ALT 37 D Alkaline Phosphatase 68 D Creatine Kinase Creatine Kinase Index Cancelled CK-MB (CK-2) Troponin I Total Protein 7.4 Albumin 3.9 Urine Color Urine Appearance Urine pH Ur Specific [place] Urine Protein Urine Glucose (UA) Urine Ketones Urine Blood Urine Nitrite Urine Bilirubin Urine Urobilinogen Ur Leukocyte Esterase Urine RBC Urine WBC Opiates Screen Methadone Screen Barbiturate Screen Valproic Acid 37.460 L Phencyclidine Screen Ur Amphetamines Screen MDMA (Ecstasy) Screen Benzodiazepines Screen Cocaine Screen U Marijuana (THC) Screen Blood Type Antibody Screen Spec Expiration Date 03/09/17 03/09/17 03/09/17 14:56 14:56 14:56 WBC RBC Hgb Hct MCV MCHC RDW Plt Count MPV Neutrophils % Lymphocytes % Monocytes % Eosinophils % Basophils % PTT (Actin FS) 34.9 H VBG pH POC VBG pCO2 POC VBG pO2 Mixed VBG HCO3 Sodium Potassium Chloride Carbon Dioxide Anion Gap BUN Creatinine Creat Clearance w eGFR POC Glucometer Random Glucose Lactic Acid Calcium Magnesium Total Bilirubin AST ALT Alkaline Phosphatase Creatine Kinase 183 Creatine Kinase Index 1.0 CK-MB (CK-2) 1.914 Troponin I < 0.02 Total Protein Albumin Urine Color Urine Appearance Urine pH Ur Specific [place] Urine Protein Urine Glucose (UA) Urine Ketones Urine Blood Urine Nitrite Urine Bilirubin Urine Urobilinogen Ur Leukocyte Esterase Urine RBC Urine WBC Opiates Screen Methadone Screen Barbiturate Screen Valproic Acid Phencyclidine Screen Ur Amphetamines Screen MDMA (Ecstasy) Screen Benzodiazepines Screen Cocaine Screen U Marijuana (THC) Screen Blood Type O POSITIVE Antibody Screen Negative Spec Expiration Date 03/09/17 03/09/17 03/09/17 14:56 14:56 14:58 WBC RBC Hgb Hct MCV MCHC RDW Plt Count MPV Neutrophils % Lymphocytes % Monocytes % Eosinophils % Basophils % PTT (Actin FS) VBG pH POC VBG pCO2 POC VBG pO2 Mixed VBG HCO3 Sodium Potassium Chloride Carbon Dioxide Anion Gap BUN Creatinine Creat Clearance w eGFR POC Glucometer Random Glucose Lactic Acid 1.348 Calcium Magnesium Total Bilirubin AST ALT Alkaline Phosphatase Creatine Kinase Creatine Kinase Index CK-MB (CK-2) Troponin I Total Protein Albumin Urine Color Urine Appearance Urine pH Ur Specific [place] Urine Protein Urine Glucose (UA) Urine Ketones Urine Blood Urine Nitrite Urine Bilirubin Urine Urobilinogen Ur Leukocyte Esterase Urine RBC Urine WBC Opiates Screen Negative Methadone Screen Negative Barbiturate Screen Negative Valproic Acid Phencyclidine Screen Positive Ur Amphetamines Screen Negative MDMA (Ecstasy) Screen Negative Benzodiazepines Screen Negative Cocaine Screen Negative U Marijuana (THC) Screen Negative Blood Type O POSITIVE Antibody Screen Cancelled Spec Expiration Date Cancelled 03/09/17 03/09/17 03/09/17 14:58 15:13 22:42 WBC RBC Hgb Hct MCV MCHC RDW Plt Count MPV Neutrophils % Lymphocytes % Monocytes % Eosinophils % Basophils % PTT (Actin FS) VBG pH 7.39 POC VBG pCO2 49.9 POC VBG pO2 65.8 H Mixed VBG HCO3 29.4 H Sodium Potassium Chloride Carbon Dioxide Anion Gap BUN Creatinine Creat Clearance w eGFR POC Glucometer 93.09848 Random Glucose Lactic Acid Calcium Magnesium Total Bilirubin AST ALT Alkaline Phosphatase Creatine Kinase Creatine Kinase Index CK-MB (CK-2) Troponin I Total Protein Albumin Urine Color Ltyellow Urine Appearance Clear Urine pH 5.0 Ur Specific [place] 1.020 Urine Protein Negative Urine Glucose (UA) Negative Urine Ketones Negative Urine Blood 2+ H Urine Nitrite Negative Urine Bilirubin Negative Urine Urobilinogen Negative Ur Leukocyte Esterase Trace H D Urine RBC 11 Urine WBC 4 Opiates Screen Methadone Screen Barbiturate Screen Valproic Acid Phencyclidine Screen Ur Amphetamines Screen MDMA (Ecstasy) Screen Benzodiazepines Screen Cocaine Screen U Marijuana (THC) Screen Blood Type Antibody Screen Spec Expiration Date 03/10/17 03/10/17 06:15 06:15 WBC 10.8 H RBC 4.10 Hgb 13.5 Hct 40.7 MCV 99.1 H MCHC 33.1 RDW 14.6 Plt Count 277 MPV 7.3 L Neutrophils % 69.3 Lymphocytes % 21.2 D Monocytes % 7.8 D Eosinophils % 1.4 D Basophils % 0.3 PTT (Actin FS) VBG pH POC VBG pCO2 POC VBG pO2 Mixed VBG HCO3 Sodium 142 Potassium 3.9 Chloride 104 Carbon Dioxide 30 Anion Gap 8 BUN 14 D Creatinine 0.8 Creat Clearance w eGFR > 60 POC Glucometer Random Glucose 80 D Lactic Acid Calcium 8.8 Magnesium 2.2 D Total Bilirubin 0.5 D AST 21 ALT 28 D Alkaline Phosphatase 57 Creatine Kinase Creatine Kinase Index CK-MB (CK-2) Troponin I Total Protein 6.4 Albumin 3.2 L Urine Color Urine Appearance Urine pH Ur Specific [place] Urine Protein Urine Glucose (UA) Urine Ketones Urine Blood Urine Nitrite Urine Bilirubin Urine Urobilinogen Ur Leukocyte Esterase Urine RBC Urine WBC Opiates Screen Methadone Screen Barbiturate Screen Valproic Acid Phencyclidine Screen Ur Amphetamines Screen MDMA (Ecstasy) Screen Benzodiazepines Screen Cocaine Screen U Marijuana (THC) Screen Blood Type Antibody Screen Spec Expiration Date IMAGING: CT scan of head w/o contrast (03/10/17): Negative CXR (03/10/17): No acute pathology ASSESSMENT/PLAN: 46 y/o F with PMHx of seizure disorder, asthma, polysubstance abuse brought into the ED for multiple seizures. Admitted for multiple seizure events secondary to possible drug induced vs medication noncompliance vs encephalopathy 1. Seizure events secondary to possible drug induced vs medication noncompliance vs encephalopathy -NPO -IV Fluids @ 125 cc/hr -Neuro on board -Utox positive for PCP, Depakote is at sub therapeutic levels -5 mg Versed, Dilantin given in ED for first observed seizure episode -10 mg Versed given in ICU for second observed seizure episode -Continue Ativan 1 mg Q2H PRN -Start Dilantin 300 mg IV Daily per Neuro -Neuro checks q1h -Restart Lamictal once patient can tolerate PO -Continue to monitor vitals and labs 2. HTN -Consider starting Lopressor PRN 3. Asthma -Continue Albuterol/Ipratropium 4. Polysubstance abuse -Utox positive for PCP, history of heroin and PCP use -Consider consult with Dean 5. DVT Ppx -Continue subq heparin Dispo: Monitor in ICU
--- NOTE | 2017-03-10 13:20 | PN ---
Teaching Attending Note Name of Resident: Poornima Phillip ATTENDING PHYSICIAN STATEMENT I saw and evaluated the patient. I reviewed the resident's note and discussed the case with the resident. I agree with the resident's findings and plan as documented. SUBJECTIVE: Pt seen and examined in the ICU. Briefly, 46 year old female with known seizure disorder, polysubstance abuse, COPD, HTN who presents with seizure episode. Unknown if pt taking her seizure medications but her levels were subtherapeutic. Had another seizure in the ER, given versed IVP, loaded with dilantin and depakote and transferred to ICU for further monitoring. OBJECTIVE: Last Vital Signs Temp Pulse Resp BP Pulse Ox 98.9 F 90 16 148/98 99 03/10/17 12:00 03/10/17 12:00 03/10/17 12:00 03/10/17 12:00 03/10/17 11:30 Intake & Output 03/07/17 03/08/17 03/09/17 03/10/17 23:59 23:59 23:59 23:59 Weight 125 lb 124 lb 15.998 oz Gen: somnolent but arousable Heart: RRR Lung: decreased breath sounds at the bases Abd: soft, nontender Ext: no edema CBC, BMP 03/10/17 06:15 03/10/17 06:15 Active Medications Albuterol/Ipratropium (Duoneb -) 1 amp NEB QIDR [facility] Last Admin: 03/10/17 06:01 Dose: 1 amp Chlorhexidine Gluconate (Hibiclens For Decolonization -) 1 applic TP HS [facility] Enoxaparin Sodium (Lovenox -) 40 mg SQ DAILY [facility] Dextrose/Sodium Chloride (D5-Ns -) 1,000 mls @ 125 mls/hr IV ASDIR [facility] Last Admin: 03/10/17 00:55 Dose: 125 mls/hr Lorazepam (Ativan Injection -) 1 mg IVPUSH Q2H PRN PRN Reason: seizure Mupirocin (Bactroban Ointment (For Decolonization) -) 1 applic NS BID [facility] Stop: 03/14/17 21:59 Ondansetron HCl (Zofran Injection) 4 mg IVPB Q8H PRN PRN Reason: NAUSEA Phenytoin Sodium (Dilantin Injection -) 300 mg IVPB DAILY [facility] Pneumococcal 13-Valent Conj Vacc (Prevnar 13 Syringe -) 0.5 ml IM .ONCE ONE Stop: 03/10/17 10:39 ASSESSMENT AND PLAN: Seizures Polysubstance Abuse COPD HTN - continue antiepileptics per neuro - benzos PRN for breakthrough seizures - seizure precautions - monitor airway - aspiration precautions - O2 as needed - DVT prophylaxis
--- NOTE | 2017-03-10 16:30 | PN ---
Teaching Attending Note Name of Resident: Shirin Keating ATTENDING PHYSICIAN STATEMENT I saw and evaluated the patient. I reviewed the resident's note and discussed the case with the resident. I agree with the resident's findings and plan as documented. Pt was evaluated at 1130 today SUBJECTIVE:unresponsive OBJECTIVE: Last Vital Signs Temp Pulse Resp BP Pulse Ox 99.2 F 85 13 126/89 100 03/10/17 15:32 03/10/17 15:32 03/10/17 15:32 03/10/17 15:32 03/10/17 15:23 General unresponsive. does not withdraw to painful stimuli or sternal chest rub , does withdraw during pupil check HEENT PERRL, pt withdraws to pupil check no nystagmus CV S1 S2 RRR no murmur/rub/gallop Lungs CTA B/L no wheezing/rales/rhonchi ASSESSMENT AND PLAN: 46yo F wtih PMH seizure disorder, COPD and continuous polysubstance abuse presented to the ER and was admitted for further evaluation of their emergent condition 1. Status epilepticus- multiple witnessed seizures yesterday and last one this AM. had another seizure witnessed by me with myotonic twitching of the face and facial posturing which responded to versed. GCS 3. called anesthesia for immediate intubation for airway protection. seizure due to subtherapeutic levels of medications likely confounded with PCP use (+in tox screen). has hx of heroin use. unable to gather information from patient. will reach out to family for collateral information. loaded with dilantin. will re-start home medications once NGT placed. cont versed prn for seizure activity. frequent neurochecks. monitor for return of mental status. seizure precautions, elevate HOB. unable to EEG here at this time. Neuro on board 2. Leukocytosis- likely reactive. no signs of infection. UA and CXR negative. Cx pending. will hold abx at this time 3. Continuous polysubstance use- Utox +PCP. no signs of withdrawal at this time. will d/w pt once mental status returns if desires inpatient rehab 4. COPD- no signs of exacerbation. nebs prn 5. DVT ppx- lovenox The care of this patient involved high complexity decision making to prevent further life threatening deterioration of the patient's condition and/or to evalute & treat vital organ system(s) failure or risk of failure. 45 minutes critical care time
[2017-03-10] MEDS ORDERED: PNEUMOCOCCAL 23 VACCINE 0.5 ML VIAL IM ONE (17:15)
--- NOTE | 2017-03-10 17:19 | PN ---
Physical Exam: SUBJECTIVE: Patient seen and examined by me at bedside. Patient was seen after a seizing and is now unresponsive. Unable to obtain any information from patient. OBJECTIVE: Vital Signs Period Temp Pulse Resp BP Sys/Slade Pulse Ox Last 24 Hr 98 F-99.2 F 66-90 12-20 86-156/67-106 98-100 GENERAL: unresponsive LUNGS: Course breath sounds HEART: Regular rate and rhythm, S1, S2 without murmur, rub or gallop. ABDOMEN: Soft, nontender, nondistended, normoactive bowel sounds EXTREMITIES: No peripheral edema. NEUROLOGICAL: Unable to perform due to patient being unresponsive. hyporeflexic. Laboratory Results - last 24 hr 03/09/17 03/10/17 03/10/17 22:42 06:15 06:15 WBC 10.8 H RBC 4.10 Hgb 13.5 Hct 40.7 MCV 99.1 H MCHC 33.1 RDW 14.6 Plt Count 277 MPV 7.3 L Neutrophils % 69.3 Lymphocytes % 21.2 D Monocytes % 7.8 D Eosinophils % 1.4 D Basophils % 0.3 Sodium 142 Potassium 3.9 Chloride 104 Carbon Dioxide 30 Anion Gap 8 BUN 14 D Creatinine 0.8 Creat Clearance w eGFR > 60 POC Glucometer 93.48659 Random Glucose 80 D Calcium 8.8 Magnesium 2.2 D Total Bilirubin 0.5 D AST 21 ALT 28 D Alkaline Phosphatase 57 Total Protein 6.4 Albumin 3.2 L Active Medications Generic Name Dose Route Start Last Admin Trade Name Freq PRN Reason Stop Dose Admin Albuterol/Ipratropium 1 amp 03/10/17 00:00 03/10/17 06:01 Duoneb - NEB 1 amp QIDR ERNESTINE Administration Chlorhexidine Gluconate 1 applic 03/10/17 22:00 Hibiclens For Decolonization - TP HS ERNESTINE Enoxaparin Sodium 40 mg 03/10/17 10:00 Lovenox - SQ DAILY ERNESTINE Dextrose/Sodium Chloride 1,000 mls @ 125 mls/hr 03/10/17 00:45 03/10/17 14:34 D5-Ns - IV 125 mls/hr ASDIR ERNESTINE Administration Lorazepam 1 mg 03/09/17 17:04 Ativan Injection - IVPUSH Q2H PRN seizure Mupirocin 1 applic 03/09/17 22:00 Bactroban Ointment (For Decolonization) - NS 03/14/17 21:59 BID ERNESTINE Ondansetron HCl 4 mg 03/09/17 17:06 Zofran Injection IVPB Q8H PRN NAUSEA Phenytoin Sodium 300 mg 03/10/17 20:00 Dilantin Injection - IVPB DAILY ERNESTINE Images: CT scan of head w/o contrast (03/10/17): Negative CXR (03/10/17): No acute pathology ASSESSMENT/PLAN: Patient is a 46 year old female with a PMHx of seizure disorder, Asthma/COPD, polysubstance abuse (PCP) who was sent from the neurologist's office for multiple witnessed seizures. Patient admitted for further management. Status Epilepticus with Toxic metabolic Encephalopathy -GCS 3 -likely secondary to medicine noncompliance vs substance abuse -Two witnessed episodes -Found to have subtherapeutic levels of valproic acid -Toxicology screening positive for PCP use with history of heroin use -Was given Dilantin, Versed, Ativan and Narcan in the ED -Dilantin 300mg standing daily dose, as per Neurology -Ativan 1mg PRN -D5-NS @125mls/hr -Continue neuro checks Q2H -Aspiration precaution -Will place NGT COPD -No acute exacerbation -Will continue DuoNeb PRN -Takes symbicort at home and will resume once stable Polysubstance abuse -Toxicology positive for PCP -History of Heroin abuse -Will [place] once patient is awake and stable F/E/N -D5-NS @125mls/hr -Electrolytes wnl -NPO Prophylaxis -Lovenox 40mg SQ daily Disposition -Currently in the ICU. Remains lethargic and had multiple episodes of seizures today. Visit type - Emergency Visit Emergency Visit: Yes ED Registration Date: 03/09/17 Care time: The patient presented to the Emergency Department on the above date and was hospitalized for further evaluation of their emergent condition. - New Patient This patient is new to me today: Yes Date on this admission: 03/11/17 - Critical Care Critical Care patient: Yes Total Critical Care Time (in minutes): 45 Critical Care Statement: The care of this patient involved high complexity decision making to prevent further life threatening deterioration of the patient 's condition and/or to evalute & treat vital organ system(s) failure or risk of failure.
[2017-03-10] MEDS ORDERED: LORAZEPAM CARPU-JECT 2 MG/ML DISP.SYRIN ONE (17:33)
[2017-03-10] MEDS: MUPIROCIN 2% TOPICAL OINTMENT FOR DECOLONIZATION NS SCH ×2 (17:44→23:05)
[2017-03-10] MEDS: LORAZEPAM CARPU-JECT 2 MG/ML DISP.SYRIN IVPUSH PRN (17:47)
[2017-03-10] MEDS: ENOXAPARIN NA (PORCINE) 40 MG/0.4 ML DISP.SYRIN SQ SCH (17:51)
[2017-03-10] MEDS ORDERED: LORAZEPAM CARPU-JECT 2 MG/ML DISP.SYRIN IVPUSH ONE (17:53)
[2017-03-10] MEDS ORDERED: morphine CARPU-JECT 2 MG/1 ML DISP.SYRIN IVPUSH PRN (18:05)
[2017-03-10] MEDS: PHENYTOIN SODIUM 100 MG/2 ML VIAL IVPB SCH (22:57)
[2017-03-10] MEDS: CHLORHEXIDINE GLUCONATE 4% CLEANSER FOR DECOLONIZATION TP SCH (23:05)
[2017-03-11] MEDS: ALBUTEROL SO4 2.5/IPRATROPIUM 0.5 INH SOL 3 ML VIAL.NEB. NEB SCH ×5 (05:46→23:08)
[2017-03-11 06:12] LABS: MCH 32.5 pg (25.7-33.7); MCHC 33.3 g/dl (32.0-36.0); MEAN CELL VOLUME 97.3 fl (80-96); MEAN PLT VOLUME 7.1 fl (7.5-11.1); PLATELET COUNT 245 K/MM3 (134-434); RDW 14.1 % (11.6-15.6); WHITE BLOOD COUNT 9.4 K/mm3 (4.0-10.0)
[2017-03-11 06:59] LABS: ALBUMIN 2.9 g/dl (3.4-5.0); ANION GAP 10 (8-16); BILIRUBIN,TOTAL 0.4 mg/dL (0.2-1.0); CALCIUM 7.7 mg/dL (8.5-10.1); CO2 28 mmol/L (21-32); COCKROFT - GAULT 87.9665; CREATININE 0.7 mg/dL (0.55-1.02); GLUCOSE,RANDOM 88 mg/dL (74-106); MAGNESIUM 1.9 mg/dL (1.8-2.4); PHOSPHOROUS 2.1 mg/dL (2.5-4.9); SGOT/AST 13 U/L (15-37); SGPT/ALT 20 U/L (12-78); TOT PROT 5.7 g/dl (6.4-8.2)
[2017-03-11 07:00] LABS: ALK PHOS 57 U/L (45-117)
[2017-03-11] MEDS: DEXTROSE 5%-NORMAL SALINE 1,000 ML IV SCH (07:06)
--- NOTE | 2017-03-11 07:45 | PN ---
Addendum entered and electronically signed by Shirin Keating RES 03/11/17 12:05 : Status Epilepticus with Toxic metabolic Encephalopathy- Acute -Patient remains somnolent and nonresponsive will ordered Brain MRI without contrast -Lumbar puncture done with Dr. Osborne. Results pending -ID Consult placed -Will order NG tube for nutrition Hypophasphatemia/Hypomagnesemia -Magnesium sulfate 2gm IV -Sodium phosphate 30mm IV given Original Note: Physical Exam: SUBJECTIVE: Patient seen and examined by me at bedside. No overnight events noted. Patient drowsy and lethargic. Unable to obtain any information. OBJECTIVE: Vital Signs Period Temp Pulse Resp BP Sys/Slade Pulse Ox Last 24 Hr 98 F-99.4 F 76-100 12-20 86-148/67-99 96-100 GENERAL: Somnolent and obtunded LUNGS: Course breath sounds HEART: Regular rate and rhythm, S1, S2 without murmur, rub or gallop. ABDOMEN: Soft, nontender, nondistended, normoactive bowel sounds EXTREMITIES: No peripheral edema. Laboratory Results - last 24 hr 03/10/17 03/11/17 03/11/17 06:15 05:20 05:20 WBC 10.8 H 9.4 RBC 4.10 3.68 Hgb 13.5 11.9 D Hct 40.7 35.8 MCV 99.1 H 97.3 H MCHC 33.1 33.3 RDW 14.6 14.1 Plt Count 277 245 MPV 7.3 L 7.1 L Neutrophils % 69.3 Lymphocytes % 21.2 D Monocytes % 7.8 D Eosinophils % 1.4 D Basophils % 0.3 Sodium 142 Potassium 3.8 Chloride 104 Carbon Dioxide 28 Anion Gap 10 BUN 9 D Creatinine 0.7 Creat Clearance w eGFR > 60 POC Glucometer Random Glucose 88 Calcium 7.7 L Phosphorus 2.1 L Magnesium 1.9 Total Bilirubin 0.4 AST 13 L D ALT 20 D Alkaline Phosphatase 57 Total Protein 5.7 L Albumin 2.9 L 03/11/17 06:03 WBC RBC Hgb Hct MCV MCHC RDW Plt Count MPV Neutrophils % Lymphocytes % Monocytes % Eosinophils % Basophils % Sodium Potassium Chloride Carbon Dioxide Anion Gap BUN Creatinine Creat Clearance w eGFR POC Glucometer 97.47071 Random Glucose Calcium Phosphorus Magnesium Total Bilirubin AST ALT Alkaline Phosphatase Total Protein Albumin Active Medications Generic Name Dose Route Start Last Admin Trade Name Freq PRN Reason Stop Dose Admin Albuterol/Ipratropium 1 amp 03/10/17 00:00 03/11/17 05:46 Duoneb - NEB 1 amp QIDR ERNESTINE Administration Chlorhexidine Gluconate 1 applic 03/10/17 22:00 03/10/17 23:05 Hibiclens For Decolonization - TP 1 applic HS ERNESTINE Administration Enoxaparin Sodium 40 mg 03/10/17 10:00 03/10/17 17:51 Lovenox - SQ 40 mg DAILY ERNESTINE Administration Dextrose/Sodium Chloride 1,000 mls @ 125 mls/hr 03/10/17 00:45 03/11/17 07:06 D5-Ns - IV 125 mls/hr ASDIR ERNESTINE Administration Famotidine/Sodium Chloride 50 mls @ 100 mls/hr 03/11/17 10:00 Pepcid 20 Mg Premixed Ivpb - IVPB DAILY ERNESTINE Lorazepam 1 mg 03/09/17 17:04 03/10/17 17:47 Ativan Injection - IVPUSH 1 mg Q2H PRN Administration seizure Mupirocin 1 applic 03/09/17 22:00 03/10/17 23:05 Bactroban Ointment (For Decolonization) - NS 03/14/17 21:59 1 applic BID ERNESTINE Administration Ondansetron HCl 4 mg 03/09/17 17:06 Zofran Injection IVPB Q8H PRN NAUSEA Phenytoin Sodium 300 mg 03/10/17 20:00 03/10/17 22:57 Dilantin Injection - IVPB 300 mg DAILY ERNESTINE Administration ASSESSMENT/PLAN: Images: CT scan of head w/o contrast (03/10/17): Negative CXR (03/10/17): No acute pathology ASSESSMENT/PLAN: Patient is a 46 year old female with a PMHx of seizure disorder, Asthma/COPD, polysubstance abuse (PCP) who was sent from the neurologist's office for multiple witnessed seizures. Patient admitted for further management. Status Epilepticus with Toxic metabolic Encephalopathy- Acute -GCS 3 -likely secondary to medicine noncompliance vs substance abuse -Dilantin 300mg standing daily dose, as per Neurology -Ativan 1mg PRN -D5-NS @125mls/hr -Will give Depakote 500mg IV BID -Continue neuro checks Q2H -Aspiration precaution -NGT to be placed -Lumbar puncture to be done today for encephalopathy and to rule out any infectious origin COPD- Chronic -No acute exacerbation -Will continue DuoNeb PRN -Takes symbicort at home and will resume once stable Polysubstance abuse -Toxicology positive for PCP -History of Heroin abuse -Will [place] once patient is awake and stable F/E/N -D5-NS @125mls/hr -Electrolytes wnl -NPO Prophylaxis -Lovenox 40mg SQ daily Disposition -Currently in the ICU. Remains lethargic and drowsy. No versed given overnight. LP pending Visit type - Emergency Visit Emergency Visit: Yes ED Registration Date: 03/09/17 Care time: The patient presented to the Emergency Department on the above date and was hospitalized for further evaluation of their emergent condition. - New Patient This patient is new to me today: No - Critical Care Critical Care patient: Yes Total Critical Care Time (in minutes): 45 Critical Care Statement: The care of this patient involved high complexity decision making to prevent further life threatening deterioration of the patient 's condition and/or to evalute & treat vital organ system(s) failure or risk of failure.
[2017-03-11] MEDS: PHENYTOIN SODIUM 100 MG/2 ML VIAL IVPB SCH (09:32)
[2017-03-11] MEDS: FAMOTIDINE 20 MG/50 ML IVPB 50 ML IVPB SCH (09:32)
[2017-03-11] MEDS: ENOXAPARIN NA (PORCINE) 40 MG/0.4 ML DISP.SYRIN SQ SCH (09:32)
--- NOTE | 2017-03-11 10:49 | PN ---
Progress Note (short form) - Note Progress Note: Neurology History of Present Illness The patient is a 46 year-old woman with a significant past medical history of hypertension, asthma, chronic obstructive pulmonary disease, seizure disorder, polysubstance abuse (heroine) who presents to the emergency department via EMS for further evaluation of seizures. She was at my office but not known to me from my recollection, previously patient of Dr. Ponce and last seen by VIRTUALIZATION CONSULTANT in the office, had presented there to be seen and then had seizure event in the office and sent to hospital. Per EMS had multiple seizure events. in ER was obtunded and not following commands. Appeared to be postictal, seizures self resolved without requiring medication. Was obtunded yesterday and this AM still not following commands. Reportedly GTC activity overnight. Is on Dilantin 300mg , rec'd increased Depakote to 500mg twice daily, and restarting Lamictal now that NG tube in place. Spoke to team, will complete MRI brain. Also will complete spinal tap today. Active Medications Albuterol/Ipratropium (Duoneb -) 1 amp NEB QIDR [facility] Last Admin: 03/11/17 05:46 Dose: 1 amp Chlorhexidine Gluconate (Hibiclens For Decolonization -) 1 applic TP HS [facility] Last Admin: 03/10/17 23:05 Dose: 1 applic Enoxaparin Sodium (Lovenox -) 40 mg SQ DAILY [facility] Last Admin: 03/11/17 09:32 Dose: 40 mg Dextrose/Sodium Chloride (D5-Ns -) 1,000 mls @ 125 mls/hr IV ASDIR [facility] Last Admin: 03/11/17 07:06 Dose: 125 mls/hr Famotidine/Sodium Chloride (Pepcid 20 Mg Premixed Ivpb -) 50 mls @ 100 mls/hr IVPB DAILY [facility] Last Admin: 03/11/17 09:32 Dose: 100 mls/hr Sodium Phosphate 30 mm/ Sodium (Chloride) 260 mls @ 62.5 mls/hr IVPB ONCE ONE Stop: 03/11/17 13:09 Lorazepam (Ativan Injection -) 1 mg IVPUSH Q2H PRN PRN Reason: seizure Last Admin: 03/10/17 17:47 Dose: 1 mg Magnesium Sulfate (Magnesium Sulfate) 2 gm IVPB ONCE ONE Stop: 03/11/17 09:23 Mupirocin (Bactroban Ointment (For Decolonization) -) 1 applic NS BID [facility] Stop: 03/14/17 21:59 Last Admin: 03/10/17 23:05 Dose: 1 applic Ondansetron HCl (Zofran Injection) 4 mg IVPB Q8H PRN PRN Reason: NAUSEA Phenytoin Sodium (Dilantin Injection -) 300 mg IVPB DAILY [facility] Last Admin: 03/11/17 09:32 Dose: 300 mg Valproate Sodium (Depacon Injection -) 500 mg IVPB BID [facility] *Physical Exam Vital Signs Temperature 100.2 F H 03/11/17 10:00 Pulse Rate 107 H 03/11/17 10:00 Respiratory Rate 22 03/11/17 10:00 Blood Pressure 130/101 03/11/17 10:00 O2 Sat by Pulse Oximetry (%) 95 03/11/17 08:24 GENERAL: No response to painful stimuli. Breathing spontaneously. HEAD: Normal with no signs of trauma. EYES: Pupils are 4 mm bilaterally, responsive to light. Sclera anicteric, conjunctiva clear. ENT: Ears normal, nares patent, oropharynx clear without exudates. Dry mucous membranes. NECK: Normal range of motion, supple without lymphadenopathy, JVD, or masses. LUNGS: Breath sounds equal, clear to auscultation bilaterally. No wheezes, and no crackles. HEART:Tachycardic, Regular rate and rhythm, without murmur, rub or gallop. ABDOMEN: Soft, nontender, normoactive bowel sounds. No guarding, no rebound. EXTREMITIES: Normal range of motion, no edema. No clubbing or cyanosis. No erythema, or tenderness. NEUROLOGICAL: Not following commands, pupils responsive 3mm to 2mm, not responding to painful stimulation MUSCULOSKELETAL: Back non-tender to palpation, no CVA tenderness SKIN: Warm, Dry, normal turgor, no rashes or lesions noted. CBCD WBC 9.4 K/mm3 (4.0-10.0) 03/11/17 05:20 RBC 3.68 M/mm3 (3.60-5.2) 03/11/17 05:20 Hgb 11.9 GM/dL (10.7-15.3) D 03/11/17 05:20 Hct 35.8 % (32.4-45.2) 03/11/17 05:20 MCV 97.3 fl (80-96) H 03/11/17 05:20 MCHC 33.3 g/dl (32.0-36.0) 03/11/17 05:20 RDW 14.1 % (11.6-15.6) 03/11/17 05:20 Plt Count 245 K/MM3 (134-434) 03/11/17 05:20 MPV 7.1 fl (7.5-11.1) L 03/11/17 05:20 CMP Sodium 142 mmol/L (136-145) 03/11/17 05:20 Potassium 3.8 mmol/L (3.5-5.1) 03/11/17 05:20 Chloride 104 mmol/L (98-107) 03/11/17 05:20 Carbon Dioxide 28 mmol/L (21-32) 03/11/17 05:20 Anion Gap 10 (8-16) 03/11/17 05:20 BUN 9 mg/dL (7-18) D 03/11/17 05:20 Creatinine 0.7 mg/dL (0.55-1.02) 03/11/17 05:20 Creat Clearance w eGFR > 60 (>60) 03/11/17 05:20 Calcium 7.7 mg/dL (8.5-10.1) L 03/11/17 05:20 Total Bilirubin 0.4 mg/dL (0.2-1.0) 03/11/17 05:20 AST 13 U/L (15-37) L D 03/11/17 05:20 ALT 20 U/L (12-78) D 03/11/17 05:20 Alkaline Phosphatase 57 U/L (45-117) 03/11/17 05:20 Total Protein 5.7 g/dl (6.4-8.2) L 03/11/17 05:20 Albumin 2.9 g/dl (3.4-5.0) L 03/11/17 05:20 - RADIOLOGY Radiograph Interpretation: 03/09/17 16:14 EXAM: CT/HEAD CT WITHOUT CONTRAST Interpreted by Dr. Omar Pagan IMPRESSION: Since 06/05/2006, the ventricles and basal cisterns appear unremarkable. There is minimal volume loss which is nonspecific. No mass lesion , acute infarct or intracranial hemorrhage is identified. There is no shift of the midline structures. The calvarium is intact. Dural calcifications are noted in the right high convexity which is nonspecific. Visualized paranasal sinuses and mastoid air cells are well aerated EXAM: RAD/CHEST X-RAY PORTABLE Interpreted by Dr. Ilan Juarez IMPRESSION: A single frontal portable projection of the chest at 4:48 PM is submitted. The heart size is within normal limits. The lung marks are free of pulmonary infiltrates or pleural effusions. Medical Decision Making 46 year-old woman with a significant past medical history of hypertension, asthma, chronic obstructive pulmonary disease, seizure disorder, polysubstance abuse (heroine) who presents to the emergency department via EMS for further evaluation of seizures. She was at my office but not known to me from my recollection, last seen by VIRTUALIZATION CONSULTANT in the office, had presented there today to be seen and then had seizure event in the office and sent to hospital. Per EMS had multiple seizure events. Toxic Metabolic encephalopathy vs drug induced vs postictal 2/2 to seizures Patient on Lamictal 100mg daily per last office note from VIRTUALIZATION CONSULTANT Would restart this when patient able to take PO Patient to go to ICU for close monitoring Intubation if needed LP completed, follow up CSGF results Follow up blood cultures Dilantin 300mg daily standing Increase Depakote to 500mg twice daily May be effect of PCP and unsure if synthetic substances ID consult, low grade fevers, sufficient CSF, clean tap ICU monitoring
--- NOTE | 2017-03-11 10:52 | PROC ---
Procedure Note Procedure: Note: Lumbar puncture: Indications, risks, and benefits explained to patient and informed consent with 2 PC completed as patient not able to give consent. Patient positioned, prepped and draped in usual sterile fashion. L4 space located using bilateral iliac crests as landmarks. 1% Lidocaine without epinephrine was used to anesthetize the area. A 22G spinal needle was introduced into the arachnoid space. Stylet was removed with appropriate fluid return. Needle removed after adequate fluid collected. Blood loss was minimal. A dry guaze dressing was placed over insertion site. Patient tolerated the procedure well and no complications were observed. CSF sent for analysis
--- NOTE | 2017-03-11 11:27 | PN ---
Teaching Attending Note Name of Resident: Poornima Phillip ATTENDING PHYSICIAN STATEMENT I saw and evaluated the patient. I reviewed the resident's note and discussed the case with the resident. I agree with the resident's findings and plan as documented. SUBJECTIVE: Patient seen and examined in the ICU. Remains poorly responsive, but she is protecting her airway. Last seizure was at 5PM and she received 3mg Ativan. D/W Neuro -> LP will be performed. OBJECTIVE: Intake & Output 03/08/17 03/09/17 03/10/17 03/11/17 23:59 23:59 23:59 23:59 Intake Total 675 1500 Output Total 2 Balance 675 1498 Weight 125 lb 124 lb 15.998 oz Last Vital Signs Temp Pulse Resp BP Pulse Ox 99.1 F 96 H 30 H 121/93 95 03/11/17 10:00 03/11/17 10:00 03/11/17 10:00 03/11/17 10:00 03/11/17 08:24 Active Medications Albuterol/Ipratropium (Duoneb -) 1 amp NEB QIDR [facility] Last Admin: 03/11/17 05:46 Dose: 1 amp Chlorhexidine Gluconate (Hibiclens For Decolonization -) 1 applic TP HS [facility] Last Admin: 03/10/17 23:05 Dose: 1 applic Enoxaparin Sodium (Lovenox -) 40 mg SQ DAILY [facility] Last Admin: 03/11/17 09:32 Dose: 40 mg Dextrose/Sodium Chloride (D5-Ns -) 1,000 mls @ 125 mls/hr IV ASDIR [facility] Last Admin: 03/11/17 07:06 Dose: 125 mls/hr Famotidine/Sodium Chloride (Pepcid 20 Mg Premixed Ivpb -) 50 mls @ 100 mls/hr IVPB DAILY [facility] Last Admin: 03/11/17 09:32 Dose: 100 mls/hr Sodium Phosphate 30 mm/ Sodium (Chloride) 260 mls @ 65 mls/hr IVPB ONCE ONE PRN Reason: 30 MM/4 HR Stop: 03/11/17 15:59 Lorazepam (Ativan Injection -) 1 mg IVPUSH Q2H PRN PRN Reason: seizure Last Admin: 03/10/17 17:47 Dose: 1 mg Magnesium Sulfate (Magnesium Sulfate) 2 gm IVPB ONCE ONE Stop: 03/11/17 12:01 Mupirocin (Bactroban Ointment (For Decolonization) -) 1 applic NS BID [facility] Stop: 03/14/17 21:59 Last Admin: 03/10/17 23:05 Dose: 1 applic Ondansetron HCl (Zofran Injection) 4 mg IVPB Q8H PRN PRN Reason: NAUSEA Phenytoin Sodium (Dilantin Injection -) 300 mg IVPB DAILY [facility] Last Admin: 03/11/17 09:32 Dose: 300 mg Valproate Sodium (Depacon Injection -) 500 mg IVPB BID [facility] Gen: poorly responsive Heart: RRR Lung: decreased breath sounds at the bases Abd: soft, nontender Ext: no edema Laboratory Results - last 24 hr 03/11/17 03/11/17 03/11/17 05:20 05:20 06:03 WBC 9.4 RBC 3.68 Hgb 11.9 D Hct 35.8 MCV 97.3 H MCHC 33.3 RDW 14.1 Plt Count 245 MPV 7.1 L Sodium 142 Potassium 3.8 Chloride 104 Carbon Dioxide 28 Anion Gap 10 BUN 9 D Creatinine 0.7 Creat Clearance w eGFR > 60 POC Glucometer 97.05973 Random Glucose 88 Calcium 7.7 L Phosphorus 2.1 L Magnesium 1.9 Total Bilirubin 0.4 AST 13 L D ALT 20 D Alkaline Phosphatase 57 Total Protein 5.7 L Albumin 2.9 L ASSESSMENT AND PLAN: Seizures Polysubstance Abuse COPD HTN - For LP - antiepileptics per neuro - benzos PRN for breakthrough seizures - seizure precautions - monitor airway - aspiration precautions - O2 as needed - DVT prophylaxis Dr Bay critical care time spent in reviewing chart, evaluating patient and formulating plan 35 min
[2017-03-11 11:55] LABS: GLUCOSE,CSF 65 mg/dL (50-80)
[2017-03-11] MEDS: MUPIROCIN 2% TOPICAL OINTMENT FOR DECOLONIZATION NS SCH ×3 (11:55→22:28)
[2017-03-11] MEDS ORDERED: MAGNESIUM SULF 50% (8.12 MEQ/2 ML-1 GM VIAL) IVPB ONE (12:00)
[2017-03-11] MEDS ORDERED: SODIUM PHOSPHATE - 30 MM in SODIUM CHLORIDE 250 ML IVPB ONE (12:00)
--- NOTE | 2017-03-11 12:19 | PN ---
Progress Note (short form) - Note Progress Note: ID consult dictated imp/reccd 46 year old female history of prior seizures- sent from neurologist office with active seizures- her zalproic acid level was subtherapeutic and she had a tox positive for PCP- she was postictal but arousable then developed seizures again last night and was given ativan she has remained unresponsive since then and was seen by neurology this am who performed LP her WBC count is normal her temp is 100.2 d/w resident who is sending fluid (not purulent) for csf studies would send HIV testing as well d/w Neurology- will await cell count no signs of meningitis altared mental status-?toxic metabolic from drugs? or from seizures if +wbc willl start acyclovir for HSV and f/u pcr EEG and MRI per neurology
[2017-03-11 13:18] LABS: CSF APPEARANCE CLEAR; CSF COLOR COLORLESS
[2017-03-11 13:20] LABS: CSF RBC 0 /mm3
[2017-03-11 13:22] LABS: GLUCOSE,CSF 65 mg/dL (50-80)
[2017-03-11] MEDS: VALPROATE SODIUM 500 MG/5 ML VIAL IVPB SCH ×2 (13:25→21:38)
[2017-03-11 13:26] LABS: HIV 1 & 2 AB NEGATIVE; HIV 1 AGp24 NEGATIVE
--- NOTE | 2017-03-11 14:27 | PN ---
Teaching Attending Note Name of Resident: Shirin Keating ATTENDING PHYSICIAN STATEMENT I saw and evaluated the patient. I reviewed the resident's note and discussed the case with the resident. I agree with the resident's findings and plan as documented. pt examined at 0900 today SUBJECTIVE:unresponsive OBJECTIVE: Last Vital Signs Temp Pulse Resp BP Pulse Ox 100 F H 105 H 20 125/94 99 03/11/17 12:00 03/11/17 12:00 03/11/17 12:00 03/11/17 12:00 03/11/17 12:03 General unresponsive. does not withdraw to painful stimuli or sternal chest rub , does withdraw during pupil check, pt is rigid on exam. spontaneous breathing HEENT PERRL, pt withdraws to pupil check no nystagmus CV S1 S2 RRR no murmur/rub/gallop Lungs CTA B/L no wheezing/rales/rhonchi anteriorly ASSESSMENT AND PLAN: 46yo F wtih PMH seizure disorder, COPD and continuous polysubstance abuse presented to the ER and was admitted for further evaluation of their emergent condition 1. Status epilepticus- was never intubated yesterday as originally planned decided by anesthesia as she was protecting airway. repeat grand-mal seziure yeasterday at 1700, resolved with ativan. no documentation of repeat. cont seizure precautions. frequent neurochecks. cont dilantin and depakote IV. will place NGT to start tube feeds and give lamictal.. Neuro on board 2. Acute metabolic/toxic encephalopathy- postictal vs encephalitis vs substance use. spoke with neuro in detail about plan. will obtain LP and MRI to r/o infectious or structural cause. did have leukocytosis on presentation? ID consult. close monitoring that pt is protecting airway. +spontaneous respirations. low threshold for intubation. 3. Continuous polysubstance use- Utox +PCP. no signs of withdrawal at this time. will d/w pt once mental status returns if desires inpatient rehab 4. Hypophosphatemia- replete 5. COPD- no signs of exacerbation. nebs prn 6. DVT ppx- lovenox The care of this patient involved high complexity decision making to prevent further life threatening deterioration of the patient's condition and/or to evalute & treat vital organ system(s) failure or risk of failure. 40 minutes critical care time
--- NOTE | 2017-03-11 15:44 | PN ---
Physical Exam: SUBJECTIVE: Patient seen and examined. overnight events: sustained grand-mal seizure yesterday evening 17:57, lasting apprx 1 min, abated with 3mg IV ativan pt alert and awake s/p ngt placement attempt into right nostril. minimal amount blood from b/l nostrils, vomiting with scant watery mucous and few dry heaves. bleeding resolved with pressure and leaning forward. zofran administered with relief. patient following commands appropriately, asking for food. designated burt Abraham as her health care-proxy. has two adult daughters that she does not want as health-care proxies Does not want the father of children (alda Abraham) to make medical decisions for her or sign paperwork on her behalf. OBJECTIVE: Vital Signs Period Temp Pulse Resp BP Sys/Slade Pulse Ox Last 24 Hr 98.1 F-100.2 F 85-107 12-94 100-130/74-101 95-99 GENERAL: The patient is awake, alert, and oriented person/birthday/month/year/ president, knows this is hospital, unsure of which, [facility], in no acute distress. HEAD: Normal with no signs of trauma. no sinus tenderness. EYES: PERRL, extraocular movements intact, sclera anicteric, conjunctiva clear. No ptosis. ENT: Ears normal, nares patent cleared of blood - no laceration/erythema/edema, oropharynx clear without exudates/erythema/blood. moist mucous membranes. no tongue lacerations NECK: Trachea midline, full range of motion, supple. LUNGS: Breath sounds equal, clear to auscultation bilaterally, no wheezes, no crackles, no accessory muscle use. HEART: Regular rate and rhythm, S1, S2 without murmur, rub or gallop. ABDOMEN: Soft, nontender, nondistended, normoactive bowel sounds, no guarding, no rebound, no hepatosplenomegaly, no masses. EXTREMITIES: 2+ pulses, warm, well-perfused, no edema. NEUROLOGICAL: Cranial nerves II through XII grossly intact. PSYCH: lethargic but easily arousable SKIN: Warm, dry, normal turgor, no rashes or lesions noted Laboratory Results - last 24 hr 03/11/17 03/11/17 03/11/17 05:20 05:20 06:03 WBC 9.4 RBC 3.68 Hgb 11.9 D Hct 35.8 MCV 97.3 H MCHC 33.3 RDW 14.1 Plt Count 245 MPV 7.1 L Sodium 142 Potassium 3.8 Chloride 104 Carbon Dioxide 28 Anion Gap 10 BUN 9 D Creatinine 0.7 Creat Clearance w eGFR > 60 POC Glucometer 97.91450 Random Glucose 88 Calcium 7.7 L Phosphorus 2.1 L Magnesium 1.9 Total Bilirubin 0.4 AST 13 L D ALT 20 D Alkaline Phosphatase 57 Total Protein 5.7 L Albumin 2.9 L CSF Appearance CSF Color CSF WBC CSF RBC CSF Neutrophils CSF Glucose CSF Total Protein RPR Titer HIV 1&2 Antibody Screen HIV P24 Antigen 03/11/17 03/11/17 03/11/17 10:30 10:30 12:09 WBC RBC Hgb Hct MCV MCHC RDW Plt Count MPV Sodium Potassium Chloride Carbon Dioxide Anion Gap BUN Creatinine Creat Clearance w eGFR POC Glucometer Random Glucose Calcium Phosphorus Magnesium Total Bilirubin AST ALT Alkaline Phosphatase Total Protein Albumin CSF Appearance Clear CSF Color Colorless CSF WBC 0 CSF RBC 0 CSF Neutrophils Y CSF Glucose 65 65 CSF Total Protein 21 21 RPR Titer HIV 1&2 Antibody Screen Negative HIV P24 Antigen Negative 03/11/17 12:09 WBC RBC Hgb Hct MCV MCHC RDW Plt Count MPV Sodium Potassium Chloride Carbon Dioxide Anion Gap BUN Creatinine Creat Clearance w eGFR POC Glucometer Random Glucose Calcium Phosphorus Magnesium Total Bilirubin AST ALT Alkaline Phosphatase Total Protein Albumin CSF Appearance CSF Color CSF WBC CSF RBC CSF Neutrophils CSF Glucose CSF Total Protein RPR Titer Nonreactive HIV 1&2 Antibody Screen HIV P24 Antigen Active Medications Generic Name Dose Route Start Last Admin Trade Name Olivia PRN Reason Stop Dose Admin Albuterol/Ipratropium 1 amp 03/10/17 00:00 03/11/17 11:10 Duoneb - NEB 1 amp QIDR ERNESTINE Administration Chlorhexidine Gluconate 1 applic 03/10/17 22:00 03/10/17 23:05 Hibiclens For Decolonization - TP 1 applic HS ERNESTINE Administration Enoxaparin Sodium 40 mg 03/10/17 10:00 03/11/17 09:32 Lovenox - SQ 40 mg DAILY ERNESTINE Administration Dextrose/Sodium Chloride 1,000 mls @ 125 mls/hr 03/10/17 00:45 03/11/17 07:06 D5-Ns - IV 125 mls/hr ASDIR ERNESTINE Administration Famotidine/Sodium Chloride 50 mls @ 100 mls/hr 03/11/17 10:00 03/11/17 09:32 Pepcid 20 Mg Premixed Ivpb - IVPB 100 mls/hr DAILY ERNESTINE Administration Sodium Phosphate 30 mm/ Sodium 260 mls @ 65 mls/hr 03/11/17 12:00 03/11/17 13: 31 Chloride IVPB 03/11/17 15:59 65 mls/hr ONCE ONE Administration 30 MM/4 HR Lorazepam 1 mg 03/09/17 17:04 03/10/17 17:47 Ativan Injection - IVPUSH 1 mg Q2H PRN Administration seizure Mupirocin 1 applic 03/09/17 22:00 03/11/17 11:55 Bactroban Ointment (For Decolonization) - NS 03/14/17 21:59 1 applic BID ERNESTINE Administration Ondansetron HCl 4 mg 03/09/17 17:06 Zofran Injection IVPB Q8H PRN NAUSEA Phenytoin Sodium 300 mg 03/10/17 20:00 03/11/17 09:32 Dilantin Injection - IVPB 300 mg DAILY ERNESTINE Administration Valproate Sodium 500 mg 03/11/17 10:00 03/11/17 13:25 Depacon Injection - IVPB 500 mg BID ERNESTINE Administration ASSESSMENT/PLAN: 46 yr old woman with seizure d/o, polysubstance abuse, HTN, presents with multiple grand-mal seizures, currently in ICU obtunded but able to protect airway. Neurological Grand-mal seizure; valproic acid and lamictal levels pending. suspicious for toxic metabolic encephalopathy(utox + for pcp) or medication non-compliance( levels subtherapeutic) depakoate dilantin 300mg IVPB daily ativan 1mg q4hr prn lamictal 100mg po - able to tolerate po now, will initiate tonight's dose IVF D5/NS @125ml/hr for brain MRI this evening currently able to protect airway, low threshold for intubation should pt become hypoxic or status epilepticus, aspiration precautions consult: Dr. mulligan Infectious Disease blood and urine cx pending, monitor off abx monitor for fevers, currently afebrile low suspicion for infectious cause; - s/p lumbar puncture; fluid analysis with normal glucose/protein values without rbc's or wbc, pending immunology studies - HIV negative Pulmonary nasal cannula 2lpm duonebs QID GI zofran 4mg q8h prn for nausea Cardiovascular HTN - controlled no home meds listed, will initated anti-HTN if SBp>160 tachycardic, improving, continue IVF until adequate po DVT prophylaxis with SCD's for now due to fall-risk/risk for injury during edwina- clonic seizure event Diet: start with clear liquids and advance as tolerated. Dispo: We will continue to follow the patient. Thank you for this consultative opportunity. Visit type - Emergency Visit Emergency Visit: No - New Patient This patient is new to me today: No - Critical Care Critical Care patient: Yes Total Critical Care Time (in minutes): 45 Critical Care Statement: The care of this patient involved high complexity decision making to prevent further life threatening deterioration of the patient 's condition and/or to evalute & treat vital organ system(s) failure or risk of failure.
[2017-03-11] MEDS ORDERED: ONDANSETRON 4 MG/2 ML VIAL ONE (17:49)
--- NOTE | 2017-03-11 19:01 | CONS ---
DATE OF CONSULTATION: DATE OF DICTATION: 03/11/2017 INFECTIOUS DISEASE CONSULTATIONS REQUESTING PHYSICIAN: [facility] HISTORY OF PRESENT ILLNESS: This is a 46-year-old woman with a past medical history of a seizure disorder, COPD, polysubstance use, who was admitted after she was sent from the neurologist office with seizures. She apparently had multiple seizures in the ambulance which resolved spontaneously in the emergency room. She then had a grand mal seizure yesterday evening which resolved with Ativan. She was found to have subtherapeutic valproic acid levels, a urine toxicology that was positive for PCP, and she was loaded with Dilantin and Depakote. I am asked to see her because the patient has remained unresponsive after the seizure yesterday and question was raised about if she had a [employer] infection. Neurology just completed a spinal tap, results of which are pending at this time PAST MEDICAL HISTORY: She has a past medical history of asthma, COPD, hypertension, seizure disorder. ALLERGIES: LATEX, PENICILLIN, BACTRIM, and TOMATOES, as well as DOXYCYCLINE and ASPIRIN. MEDICATION: Her medications as an outpatient include albuterol, baclofen, Symbicort, Depakote, Neurontin, Singulair, naproxen, and Seroquel. FAMILY HISTORY: Not available. SOCIAL HISTORY: Per the emergency room sheet, she is currently a cigarette smoker, no alcohol use, history of heroin use, and use of PCP. PHYSICAL EXAMINATION: General: She is lying comfortably in bed. Vital signs: Temperature 99.3, T-max is 100.2, pulse is 92, blood pressure 113/97, respiratory rate 20, she is saturating 99% on 2 L. HEENT: Normocephalic. She will not open her eyes. They are anicteric. Neck: Supple. She has no meningeal signs. Lungs: Clear to auscultation. Heart: Regular rate and rhythm. Abdomen: Soft, nontender. She has no distention. She has no rash. Extremities: Without edema. LABORATORY: White count on admission was 12.8, today is 9.4, hemoglobin is 11.9, platelets 245. BUN and creatinine are 9 and 0.7. LFTs are normal. Urinalysis had 4 white cells. Spinal tap results are pending. Head CT done in the emergency room showed mild volume loss without any acute intracranial pathology. Chest x-ray showed no evidence of heart failure and pneumonia. IMPRESSION: In summary, this is a 46-year-old woman with a history of prior seizures with subtherapeutic seizure medications and a positive urine toxicology screen for PCP, admitted with seizures who is now lethargic post seizures, just evaluated by neurology who has ordered an electroencephalogram and MRI as well. She has had a spinal tap. I would recommend sending the spinal tap for cell count as well as protein glucose, Gram stain, as well as fungal AFB, RPR, and serologies. Would send HIV testing as well given her polysubstance use. Discussed with the neurologist, Dr. Osborne, we will await cell count. There are no signs of meningitis, altered mental status may be toxic metabolic from her drugs or from her seizures. If there are white cells in the CSF, we will start acyclovir . Electroencephalogram and MRI are pending. ELYSE ZAVALA M.D. [id number]
[2017-03-11] MEDS ORDERED: ACETAMINOPHEN 325 MG TABLET (FP) ONE (20:02)
[2017-03-11] MEDS: lamoTRIgine 100 MG TABLET (FP) PO SCH (21:30)
[2017-03-11] MEDS: CHLORHEXIDINE GLUCONATE 4% CLEANSER FOR DECOLONIZATION TP SCH (21:39)
[2017-03-11] MEDS: ACETAMINOPHEN 325 MG TABLET (FP) PO PRN (21:39)
[2017-03-11] MEDS: LORAZEPAM CARPU-JECT 2 MG/ML DISP.SYRIN IVPUSH PRN (21:54)
[2017-03-12 06:11] LABS: MCH 33.1 pg (25.7-33.7); MCHC 34.3 g/dl (32.0-36.0); MEAN CELL VOLUME 96.5 fl (80-96); MEAN PLT VOLUME 6.6 fl (7.5-11.1); PLATELET COUNT 240 K/MM3 (134-434); WHITE BLOOD COUNT 8.4 K/mm3 (4.0-10.0)
[2017-03-12 06:34] LABS: ALBUMIN 2.6 g/dl (3.4-5.0); ALK PHOS 52 U/L (45-117); ANION GAP 6 (8-16); BILIRUBIN,TOTAL 0.4 mg/dL (0.2-1.0); CALCIUM 7.2 mg/dL (8.5-10.1); CO2 27 mmol/L (21-32); COCKROFT - GAULT 87.9665; CREATININE 0.7 mg/dL (0.55-1.02); GLUCOSE,RANDOM 94 mg/dL (74-106); MAGNESIUM 2.2 mg/dL (1.8-2.4); PHOSPHOROUS 2.1 mg/dL (2.5-4.9); SGOT/AST 14 U/L (15-37); SGPT/ALT 18 U/L (12-78); TOT PROT 5.5 g/dl (6.4-8.2)
[2017-03-12] MEDS: ALBUTEROL SO4 2.5/IPRATROPIUM 0.5 INH SOL 3 ML VIAL.NEB. NEB SCH ×4 (06:35→23:30)
[2017-03-12] MEDS: DEXTROSE 5%-NORMAL SALINE 1,000 ML IV SCH (06:53)
--- NOTE | 2017-03-12 07:55 | PN ---
Progress Note (short form) - Note Progress Note: c/o photophobia and lethargy. states last thing she remembers was having a seizure day prior to presentation which prompted her to the neurologist office. recalls going but does not remember anything after that. claims medication compliance. admits to PCP use and last use was 3 days prior to presentation, used same supplier. does not know if they cut the drugs with other substances. denies CP, SOB,fever, chills, night sweats, N/V/C/D. requesting to eat Current Medications Generic Name Dose Route Start Last Admin Trade Name Freq PRN Reason Stop Dose Admin Acetaminophen 650 mg 03/11/17 19:56 03/11/17 21:39 Tylenol - PO 650 mg Q6H PRN Administration FEVER OR PAIN Albuterol/Ipratropium 1 amp 03/10/17 00:00 03/12/17 06:35 Duoneb - NEB 1 amp QIDR ERNESTINE Administration Chlorhexidine Gluconate 1 applic 03/10/17 22:00 03/11/17 21:39 Hibiclens For Decolonization - TP 1 applic HS ERNESTINE Administration Enoxaparin Sodium 40 mg 03/10/17 10:00 03/11/17 09:32 Lovenox - SQ 40 mg DAILY ERNESTINE Administration Dextrose/Sodium Chloride 1,000 mls @ 125 mls/hr 03/10/17 00:45 03/12/17 06:53 D5-Ns - IV Not Given ASDIR ERNESTINE Famotidine/Sodium Chloride 50 mls @ 100 mls/hr 03/11/17 10:00 03/11/17 09:32 Pepcid 20 Mg Premixed Ivpb - IVPB 100 mls/hr DAILY ERNESTINE Administration Lamotrigine 100 mg 03/11/17 22:30 03/11/17 21:30 Lamictal - PO 100 mg DAILY ERNESTINE Administration Lorazepam 1 mg 03/09/17 17:04 03/11/17 21:54 Ativan Injection - IVPUSH 1 mg Q2H PRN Administration seizure Mupirocin 1 applic 03/09/17 22:00 03/11/17 22:28 Bactroban Ointment (For Decolonization) - NS 03/14/17 21:59 Not Given BID ERNESTINE Ondansetron HCl 4 mg 03/09/17 17:06 Zofran Injection IVPB Q8H PRN NAUSEA Phenytoin Sodium 300 mg 03/10/17 20:00 03/11/17 09:32 Dilantin Injection - IVPB 300 mg DAILY ERNESTINE Administration Valproate Sodium 500 mg 03/11/17 10:00 03/11/17 21:38 Depacon Injection - IVPB 500 mg BID ERNESTINE Administration Last Vital Signs Temp Pulse Resp BP Pulse Ox 98.3 F 91 H 18 106/81 99 03/12/17 06:00 03/12/17 06:00 03/12/17 06:00 03/12/17 06:00 03/11/17 16:53 General NAD A&O x2 (self and location) HEENT +photophobia, refuses to open eyes CV S1 S2 RRR no murmur/rub/gallop Lungs CTA B/L no wheezing/rales/rhonchi anteriorly neuro CN grossly intact. follows commands, strength equal in all 4 extremities ASSESSMENT AND PLAN: 46yo F wtih PMH seizure disorder, COPD and continuous polysubstance abuse presented to the ER and was admitted for further evaluation of their emergent condition 1. Status epilepticus-seizure free x24H. on dilantin, depakote and lamictal. Neuro on board 2. Acute metabolic/toxic encephalopathy- postictal vs encephalitis vs substance use. MRI and LP negative for structural disease or infection. now awake possible prolonged post-ictal phase vs substance use. woke up when NGT was being placed in the evening. passed bedside swallow eval. will advance to regular diet. 3. Continuous polysubstance use- Utox +PCP. no signs of withdrawal at this time. 4. Hypophosphatemia- replete 5. COPD- no signs of exacerbation. nebs prn 6. DVT ppx- lovenox 7. will monitor till this afternoon. if remains seizure free and mental status intact can transfer to medical floors The care of this patient involved high complexity decision making to prevent further life threatening deterioration of the patient's condition and/or to evalute & treat vital organ system(s) failure or risk of failure. 35 minutes critical care time Visit type - Emergency Visit Emergency Visit: Yes ED Registration Date: 03/09/17 Care time: The patient presented to the Emergency Department on the above date and was hospitalized for further evaluation of their emergent condition. - New Patient This patient is new to me today: No - Critical Care Critical Care patient: Yes Total Critical Care Time (in minutes): 35 Critical Care Statement: The care of this patient involved high complexity decision making to prevent further life threatening deterioration of the patient 's condition and/or to evalute & treat vital organ system(s) failure or risk of failure. - Discharge Referral Referred to [facility] Med P.C.: No
--- NOTE | 2017-03-12 08:22 | PN ---
Progress Note (short form) - Note Progress Note: now awake lp negative remembere using PCP over the weekend, started having seizures the day before she got admitted Vital Signs Period Temp Pulse Resp BP Sys/Slade Pulse Ox Last 24 Hr 98.1 F-100.2 F 82-107 16-99 101-130/76-101 95-99 cor-rrr lungs clear abd soft,nt ext no edema CBC, BMP 03/12/17 05:15 03/12/17 05:15 Microbiology 03/11/17 10:30 Cerebral Spinal Fluid - Lumbar Puncture AFB Smear Concentration - Preliminary 03/11/17 10:30 Cerebral Spinal Fluid - Lumbar Puncture Mycobacterial Culture - Preliminary 03/09/17 14:56 Blood - Peripheral Venous Blood Culture - Preliminary NO GROWTH OBTAINED AFTER 48 HOURS, INCUBATION TO CONTINUE FOR 3 DAYS. 03/09/17 14:56 Blood - Peripheral Venous Blood Culture - Preliminary NO GROWTH OBTAINED AFTER 48 HOURS, INCUBATION TO CONTINUE FOR 3 DAYS. 03/11/17 10:30 Cerebral Spinal Fluid - Lumbar Puncture CHELI Preparation - Preliminary 03/11/17 10:30 Cerebral Spinal Fluid - Lumbar Puncture Fungal Culture - Preliminary 03/11/17 10:30 Cerebral Spinal Fluid - Lumbar Puncture Gram Stain - Final 03/09/17 14:58 Urine - Urine Clean Catch Urine Culture - Final NO GROWTH OBTAINED hiv negative mri of brain no acute changes cxray negative a/p seizures resolving toxic-metabolic encephalopathy d/w hospitalist continue to observe off antibiotics please call back if needed
[2017-03-12] MEDS ORDERED: NAPH,MB-DB/K PH,MBDB POWDER PACKET PO ONE (08:45)
[2017-03-12] MEDS: MUPIROCIN 2% TOPICAL OINTMENT FOR DECOLONIZATION NS SCH ×2 (10:00→21:49)
[2017-03-12] MEDS ORDERED: PHENYTOIN NA EXTENDED 100 MG CAPSULE (FP) PO ONE ×2 (11:00→13:15)
--- NOTE | 2017-03-12 12:34 | PN ---
Progress Note (short form) - Note Progress Note: Neurology History of Present Illness The patient is a 46 year-old woman with a significant past medical history of hypertension, asthma, chronic obstructive pulmonary disease, seizure disorder, polysubstance abuse (heroine) who presents to the emergency department via EMS for further evaluation of seizures. She was at my office but not known to me from my recollection, previously patient of Dr. Ponce and last seen by RN INTEGR[facility] in the office, had presented there to be seen and then had seizure event in the office and sent to hospital. Per EMS had multiple seizure events. in ER was obtunded and not following commands. Appeared to be postictal, seizures self resolved without requiring medication. Was obtunded yesterday and this AM still not following commands. Reportedly GTC activity overnight. Is on Dilantin 300mg , rec'd increased Depakote to 500mg twice daily, and restarted Lamictal. LP with no WBC. MRI brain without acute changes. Patient refusing medication today. Did not want to speak to me in detail, discussed stopping PCP use but says she's used it for years and is fine with it. States she wants to leave but advised her that she should remain for monitoring of seizures. Active Medications Acetaminophen (Tylenol -) 650 mg PO Q6H PRN PRN Reason: FEVER OR PAIN Last Admin: 03/11/17 21:39 Dose: 650 mg Albuterol/Ipratropium (Duoneb -) 1 amp NEB QIDR [facility] Last Admin: 03/12/17 11:20 Dose: Not Given Chlorhexidine Gluconate (Hibiclens For Decolonization -) 1 applic TP HS [facility] Last Admin: 03/11/17 21:39 Dose: 1 applic Enoxaparin Sodium (Lovenox -) 40 mg SQ DAILY [facility] Last Admin: 03/11/17 09:32 Dose: 40 mg Dextrose/Sodium Chloride (D5-Ns -) 1,000 mls @ 125 mls/hr IV ASDIR [facility] Last Admin: 03/12/17 06:53 Dose: Not Given Famotidine/Sodium Chloride (Pepcid 20 Mg Premixed Ivpb -) 50 mls @ 100 mls/hr IVPB DAILY [facility] Last Admin: 03/11/17 09:32 Dose: 100 mls/hr Lamotrigine (Lamictal -) 100 mg PO DAILY [facility] Last Admin: 05/19/17 21:30 Dose: 100 mg Lorazepam (Ativan Injection -) 1 mg IVPUSH Q2H PRN PRN Reason: seizure Last Admin: 03/11/17 21:54 Dose: 1 mg Mupirocin (Bactroban Ointment (For Decolonization) -) 1 applic NS BID [facility] Stop: 03/14/17 21:59 Last Admin: 03/11/17 22:28 Dose: Not Given Ondansetron HCl (Zofran Injection) 4 mg IVPB Q8H PRN PRN Reason: NAUSEA Valproate Sodium (Depakene -) 500 mg PO BID [facility] *Physical Exam Vital Signs Temperature 98.3 F 03/12/17 06:00 Pulse Rate 99 H 03/12/17 11:20 Respiratory Rate 18 03/12/17 06:00 Blood Pressure 106/81 03/12/17 06:00 O2 Sat by Pulse Oximetry (%) 95 03/12/17 11:20 GENERAL: No response to painful stimuli. Breathing spontaneously. HEAD: Normal with no signs of trauma. EYES: Pupils are 4 mm bilaterally, responsive to light. Sclera anicteric, conjunctiva clear. ENT: Ears normal, nares patent, oropharynx clear without exudates. Dry mucous membranes. NECK: Normal range of motion, supple without lymphadenopathy, JVD, or masses. LUNGS: Breath sounds equal, clear to auscultation bilaterally. No wheezes, and no crackles. HEART:Tachycardic, Regular rate and rhythm, without murmur, rub or gallop. ABDOMEN: Soft, nontender, normoactive bowel sounds. No guarding, no rebound. EXTREMITIES: Normal range of motion, no edema. No clubbing or cyanosis. No erythema, or tenderness. NEUROLOGICAL: Not following commands, pupils responsive 3mm to 2mm, not responding to painful stimulation MUSCULOSKELETAL: Back non-tender to palpation, no CVA tenderness SKIN: Warm, Dry, normal turgor, no rashes or lesions noted. CBCD WBC 8.4 K/mm3 (4.0-10.0) 03/12/17 05:15 RBC 3.47 M/mm3 (3.60-5.2) L 03/12/17 05:15 Hgb 11.5 GM/dL (10.7-15.3) 03/12/17 05:15 Hct 33.5 % (32.4-45.2) 03/12/17 05:15 MCV 96.5 fl (80-96) H 03/12/17 05:15 MCHC 34.3 g/dl (32.0-36.0) 03/12/17 05:15 RDW 14.0 % (11.6-15.6) 03/12/17 05:15 Plt Count 240 K/MM3 (134-434) 03/12/17 05:15 MPV 6.6 fl (7.5-11.1) L 03/12/17 05:15 CMP Sodium 140 mmol/L (136-145) 03/12/17 05:15 Potassium 3.6 mmol/L (3.5-5.1) 03/12/17 05:15 Chloride 107 mmol/L (98-107) 03/12/17 05:15 Carbon Dioxide 27 mmol/L (21-32) 03/12/17 05:15 Anion Gap 6 (8-16) L 03/12/17 05:15 BUN 5 mg/dL (7-18) L D 03/12/17 05:15 Creatinine 0.7 mg/dL (0.55-1.02) 03/12/17 05:15 Creat Clearance w eGFR > 60 (>60) 03/12/17 05:15 Calcium 7.2 mg/dL (8.5-10.1) L 03/12/17 05:15 Total Bilirubin 0.4 mg/dL (0.2-1.0) 03/12/17 05:15 AST 14 U/L (15-37) L 03/12/17 05:15 ALT 18 U/L (12-78) 03/12/17 05:15 Alkaline Phosphatase 52 U/L (45-117) 03/12/17 05:15 Total Protein 5.5 g/dl (6.4-8.2) L 03/12/17 05:15 Albumin 2.6 g/dl (3.4-5.0) L 03/12/17 05:15 - RADIOLOGY EXAM: CT/HEAD CT WITHOUT CONTRAST Interpreted by Dr. Omar Pagan IMPRESSION: Since 06/05/2006, the ventricles and basal cisterns appear unremarkable. There is minimal volume loss which is nonspecific. No mass lesion , acute infarct or intracranial hemorrhage is identified. There is no shift of the midline structures. The calvarium is intact. Dural calcifications are noted in the right high convexity which is nonspecific. Visualized paranasal sinuses and mastoid air cells are well aerated EXAM: RAD/CHEST X-RAY PORTABLE Interpreted by Dr. Ilan Juarez IMPRESSION: A single frontal portable projection of the chest at 4:48 PM is submitted. The heart size is within normal limits. The lung marks are free of pulmonary infiltrates or pleural effusions. Medical Decision Making 46 year-old woman with a significant past medical history of hypertension, asthma, chronic obstructive pulmonary disease, seizure disorder, polysubstance abuse (heroine) who presents to the emergency department via EMS for further evaluation of seizures. She was at my office but not known to me from my recollection, last seen by RN [facility] in the office, had presented there today to be seen and then had seizure event in the office and sent to hospital. Per EMS had multiple seizure events. Toxic Metabolic encephalopathy vs drug induced vs postictal 2/2 to seizures Continue Lamictal 100mg Can downgrade to floor LP completed, follow up CSF results, thus far normal Follow up blood cultures Dilantin 300mg daily standing, shoudl be continued Increased Depakote to 500mg twice daily May be effect of PCP and unsure if synthetic substances, though patient denies this
[2017-03-12] MEDS: ENOXAPARIN NA (PORCINE) 40 MG/0.4 ML DISP.SYRIN SQ SCH (12:51)
[2017-03-12] MEDS: lamoTRIgine 100 MG TABLET (FP) PO SCH (12:51)
[2017-03-12] MEDS: FAMOTIDINE 20 MG/50 ML IVPB 50 ML IVPB SCH (12:51)
[2017-03-12] MEDS: VALPROATE SODIUM 250 MG/5 ML UNIT DOSE CUP PO SCH ×2 (12:51→21:48)
[2017-03-12] MEDS ORDERED: PHENYTOIN SODIUM 100 MG/2 ML VIAL IVPB SCH (13:15)
[2017-03-12] MEDS ORDERED: LORAZEPAM CARPU-JECT 2 MG/ML DISP.SYRIN IVPUSH PRN (14:29)
[2017-03-12] MEDS ORDERED: LORazepam 2 MG/ML SDV VIAL IVPUSH PRN (16:29)
--- NOTE | 2017-03-12 18:36 | PN ---
Progress Note (short form) - Note Progress Note: PULM/CCM Pt seen and examined in the ICU SUBJECTIVE: 24HR: -now awake, refusing meds, blood draws etc intermittently -LP noninfectious OBJECTIVE: Vital Signs Temp 98 F 03/12/17 10:00 Pulse 109 H 03/12/17 14:00 Resp 21 03/12/17 14:00 BP 103/75 03/12/17 14:00 Pulse Ox 95 03/12/17 11:20 Intake & Output 03/11/17 03/12/17 03/12/17 23:59 11:59 23:59 Intake Total 2029 1499 Balance 2029 1499 Intake: IV 1000 1500 D5-Ns - 1,000 ml @ 125 1000 1500 mls/hr IV ASDIR [facility] Rx#: [id number] IVPB 550 Oral 480 Other: Voiding Method Incontinent Incontinent # Unmeasured Voids Void 1 1 Bowel Movement No CBC, BMP 03/12/17 05:15 03/12/17 05:15 Active Medications Acetaminophen (Tylenol -) 650 mg PO Q6H PRN PRN Reason: FEVER OR PAIN Last Admin: 03/11/17 21:39 Dose: 650 mg Albuterol/Ipratropium (Duoneb -) 1 amp NEB QIDR [facility] Last Admin: 03/12/17 11:20 Dose: Not Given Chlorhexidine Gluconate (Hibiclens For Decolonization -) 1 applic TP HS [facility] Last Admin: 03/11/17 21:39 Dose: 1 applic Enoxaparin Sodium (Lovenox -) 40 mg SQ DAILY [facility] Last Admin: 03/12/17 12:51 Dose: 40 mg Dextrose/Sodium Chloride (D5-Ns -) 1,000 mls @ 125 mls/hr IV ASDIR [facility] Last Admin: 03/12/17 06:53 Dose: Not Given Famotidine/Sodium Chloride (Pepcid 20 Mg Premixed Ivpb -) 50 mls @ 100 mls/hr IVPB DAILY [facility] Last Admin: 03/12/17 12:51 Dose: Not Given Lamotrigine (Lamictal -) 100 mg PO DAILY [facility] Last Admin: 03/12/17 12:51 Dose: 100 mg Mupirocin (Bactroban Ointment (For Decolonization) -) 1 applic NS BID [facility] Stop: 05/22/17 21:59 Last Admin: 03/11/17 22:28 Dose: Not Given Ondansetron HCl (Zofran Injection) 4 mg IVPB Q8H PRN PRN Reason: NAUSEA Valproate Sodium (Depakene -) 500 mg PO BID [facility] Last Admin: 03/12/17 12:51 Dose: 500 mg Gen: awake, alert, no distress Heart: RRR Lung: decreased breath sounds at the bases Abd: soft, nontender Ext: no edema Neuro: non focal, A&O ASSESSMENT AND PLAN: Seizures Polysubstance Abuse COPD HTN - antiepileptics per neuro - benzos PRN for breakthrough seizures - seizure precautions - monitor airway - aspiration precautions - O2 as needed - DVT prophylaxis - encourage sobriety/medication compliance -OK for floor Mack Marin ACNP [id number]
[2017-03-12] MEDS: PHENYTOIN SODIUM 100 MG/2 ML VIAL IVPB SCH (19:05)
[2017-03-12] MEDS: VALPROATE SODIUM 500 MG/5 ML VIAL IVPB SCH (19:05)
[2017-03-12] MEDS: ACETAMINOPHEN 325 MG TABLET (FP) PO PRN (21:48)
[2017-03-12] MEDS: CHLORHEXIDINE GLUCONATE 4% CLEANSER FOR DECOLONIZATION TP SCH (22:22)
[2017-03-13 00:07] LABS: HSV 2 DNA. Negative (Negative)
[2017-03-13] MEDS: DEXTROSE 5%-NORMAL SALINE 1,000 ML IV SCH (05:22)
[2017-03-13 05:30] VITALS: TEMP 98.1
[2017-03-13] MEDS: ALBUTEROL SO4 2.5/IPRATROPIUM 0.5 INH SOL 3 ML VIAL.NEB. NEB SCH (06:30)
--- NOTE | 2017-03-13 08:17 | PN ---
Progress Note (short form) - Note Progress Note: currently asymptomatic. states less lethargic today. does not recall any more of what happened prior to ER arrival. adamant that her PCP was not laced with other substances. denies CP, SOB,fever, chills, night sweats, N/V/C/D. requesting to eat Current Medications Generic Name Dose Route Start Last Admin Trade Name Freq PRN Reason Stop Dose Admin Acetaminophen 650 mg 03/11/17 19:56 03/12/17 21:48 Tylenol - PO 650 mg Q6H PRN Administration FEVER OR PAIN Albuterol/Ipratropium 1 amp 03/10/17 00:00 03/13/17 06:30 Duoneb - NEB 1 amp QIDR ERNESTINE Administration Chlorhexidine Gluconate 1 applic 03/10/17 22:00 03/12/17 22:22 Hibiclens For Decolonization - TP 1 applic HS ERNESTIEN Administration Enoxaparin Sodium 40 mg 03/10/17 10:00 03/12/17 12:51 Lovenox - SQ 40 mg DAILY ERNESTINE Administration Dextrose/Sodium Chloride 1,000 mls @ 125 mls/hr 03/10/17 00:45 03/13/17 05:22 D5-Ns - IV Not Given ASDIR ERNESTINE Famotidine/Sodium Chloride 50 mls @ 100 mls/hr 03/11/17 10:00 03/12/17 12:51 Pepcid 20 Mg Premixed Ivpb - IVPB Not Given DAILY ERNESTINE Lamotrigine 100 mg 03/11/17 22:30 03/12/17 12:51 Lamictal - PO 100 mg DAILY ERNESTINE Administration Mupirocin 1 applic 03/09/17 22:00 03/12/17 21:49 Bactroban Ointment (For Decolonization) - NS 03/14/17 21:59 1 applic BID ERNESTINE Administration Ondansetron HCl 4 mg 03/09/17 17:06 Zofran Injection IVPB Q8H PRN NAUSEA Phenytoin Sodium 300 mg 03/13/17 10:00 Dilantin - PO DAILY ERNESTINE Valproate Sodium 500 mg 03/12/17 10:45 03/12/17 21:48 Depakene - PO 500 mg BID ERNESTINE Administration Last Vital Signs Temp Pulse Resp BP Pulse Ox 98.1 F 90 17 104/75 98 03/13/17 01:00 03/13/17 05:00 03/13/17 05:00 03/13/17 05:00 03/12/17 20:07 General NAD A&O x3 HEENT EOMI, PERRL CV S1 S2 RRR no murmur/rub/gallop Lungs CTA B/L no wheezing/rales/rhonchi anteriorly neuro CN grossly intact. follows commands, strength equal in all 4 extremities ASSESSMENT AND PLAN: 46yo F wtih PMH seizure disorder, COPD and continuous polysubstance abuse presented to the ER and was admitted for further evaluation of their emergent condition 1. Status epilepticus-seizure free and alert. on dilantin, depakote and lamictal. Neuro on board 2. Acute metabolic/toxic encephalopathy- postictal vs encephalitis vs substance use. mental status returned to baseline. workup negative. strong suspicion PCP use related to encephalopathy. stressed importance of drug abstinence, informed that PCP can lead to seizures as well and should be avoided with her hx. need for medication compliance and neuro follow up. tolerating regular diet. 3. Continuous polysubstance use- Utox +PCP. does not want rehab at this time 4. Hypophosphatemia- refusing to drink phosphorous 5. COPD- no signs of exacerbation. nebs prn 6. DVT ppx- lovenox 7. PT assessment as pt has not gotten out of bed since admission. if no difficulty ambulating will d/c home. The care of this patient involved high complexity decision making to prevent further life threatening deterioration of the patient's condition and/or to evalute & treat vital organ system(s) failure or risk of failure. 35 minutes critical care time Visit type - Emergency Visit Emergency Visit: Yes ED Registration Date: 03/09/17 Care time: The patient presented to the Emergency Department on the above date and was hospitalized for further evaluation of their emergent condition. - New Patient This patient is new to me today: No - Critical Care Critical Care patient: Yes Total Critical Care Time (in minutes): 35 Critical Care Statement: The care of this patient involved high complexity decision making to prevent further life threatening deterioration of the patient 's condition and/or to evalute & treat vital organ system(s) failure or risk of failure. - Discharge Referral Referred to [facility] Med P.C.: No
--- NOTE | 2017-03-13 08:52 | PN ---
Progress Note (short form) - Note Progress Note: PULM/CCM Pt seen and examined in the ICU SUBJECTIVE: 24HR: -no complaints OBJECTIVE: Current Medications Acetaminophen (Tylenol -) 650 mg PO Q6H PRN PRN Reason: FEVER OR PAIN Last Admin: 03/12/17 21:48 Dose: 650 mg Albuterol/Ipratropium (Duoneb -) 1 amp NEB QIDR [facility] Last Admin: 03/13/17 06:30 Dose: 1 amp Chlorhexidine Gluconate (Hibiclens For Decolonization -) 1 applic TP HS [facility] Last Admin: 03/12/17 22:22 Dose: 1 applic Enoxaparin Sodium (Lovenox -) 40 mg SQ DAILY [facility] Last Admin: 03/12/17 12:51 Dose: 40 mg Dextrose/Sodium Chloride (D5-Ns -) 1,000 mls @ 125 mls/hr IV ASDIR [facility] Last Admin: 03/13/17 05:22 Dose: Not Given Famotidine/Sodium Chloride (Pepcid 20 Mg Premixed Ivpb -) 50 mls @ 100 mls/hr IVPB DAILY [facility] Last Admin: 03/12/17 12:51 Dose: Not Given Lamotrigine (Lamictal -) 100 mg PO DAILY [facility] Last Admin: 03/12/17 12:51 Dose: 100 mg Mupirocin (Bactroban Ointment (For Decolonization) -) 1 applic NS BID [facility] Stop: 03/14/17 21:59 Last Admin: 03/12/17 21:49 Dose: 1 applic Ondansetron HCl (Zofran Injection) 4 mg IVPB Q8H PRN PRN Reason: NAUSEA Phenytoin Sodium (Dilantin -) 300 mg PO DAILY [facility] Valproate Sodium (Depakene -) 500 mg PO BID [facility] Last Admin: 03/12/17 21:48 Dose: 500 mg Vital Signs Temp 98.1 F 03/13/17 01:00 Pulse 90 03/13/17 05:00 Resp 17 03/13/17 05:00 BP 104/75 03/13/17 05:00 Pulse Ox 98 03/12/17 20:07 Intake & Output 03/12/17 03/13/17 03/13/17 18:59 06:59 18:59 Intake Total 960 Balance 960 Intake: Oral 960 Other: Voiding Method Incontinent Incontinent # Unmeasured Voids Void 1 Bowel Movement No Gen: awake, alert, no distress Heart: RRR Lung: decreased breath sounds at the bases Abd: soft, nontender Ext: no edema Neuro: non focal, A&O CBC, BMP 03/12/17 05:15 03/12/17 05:15 ASSESSMENT AND PLAN: Seizures Polysubstance Abuse COPD HTN - antiepileptics per neuro - benzos PRN for breakthrough seizures - seizure precautions - monitor airway - aspiration precautions - O2 as needed - DVT prophylaxis - encourage sobriety/medication compliance transfer to floor or d/c home? Orlando Melton Pulm/Critical Care CHIEF TECHNICIAN [employer] [id number]
[2017-03-13 09:22] VITALS: BP 109/86; PULSE 101
[2017-03-13] MEDS ORDERED: PHENYTOIN NA EXTENDED 100 MG CAPSULE (FP) PO SCH (10:00)
[2017-03-13] MEDS: VALPROATE SODIUM 250 MG/5 ML UNIT DOSE CUP PO SCH (10:09)
[2017-03-13] MEDS: MUPIROCIN 2% TOPICAL OINTMENT FOR DECOLONIZATION NS SCH (10:09)
[2017-03-13] MEDS: ENOXAPARIN NA (PORCINE) 40 MG/0.4 ML DISP.SYRIN SQ SCH (10:11)
[2017-03-13] MEDS: lamoTRIgine 100 MG TABLET (FP) PO SCH (10:11)
[2017-03-13] MEDS: FAMOTIDINE 20 MG/50 ML IVPB 50 ML IVPB SCH (10:11)
[2017-03-15 16:29] LABS: WEST NILE VIRUS AB SERUM,IGM Negative (Negative)
[2017-03-16 00:06] LABS: LYME IGG WB INTERP. Negative (.); LYME IGM WB. INTERP Negative (.); P18 AB Absent (.); P23 AB Absent (.); P28 AB Absent (.); P30 AB Absent (.); P39 AB Absent (.); P41 AB Absent (.); P45 AB Absent (.); P58 AB Absent (.); P66 AB Absent (.); P93 AB Absent (.)
== END 2017-03-13 11:54 | disposition home or self-care (01) | DRG 917 ==
LOC: JER 14:08 → JERBED 17:29 → JICU 03-10 11:27
PROVIDERS: ADMIT Internal Medicine; ATTEND Internal Medicine
PROC: 009U3ZX Drainage of Spinal Canal, Percutaneous Approach, Diagnostic (ICD-10-PCS; principal; 2017-03-11)
DX: T40.994A Poisoning by other psychodysleptics [hallucinogens], undetermined, initial encounter (principal); G92 Toxic encephalopathy; J45.909 Unspecified asthma, uncomplicated; J44.9 Chronic obstructive pulmonary disease, unspecified; F19.10 Other psychoactive substance abuse, uncomplicated; N39.498 Other specified urinary incontinence; F17.210 Nicotine dependence, cigarettes, uncomplicated; G40.901 Epilepsy, unspecified, not intractable, with status epilepticus; Z91.14 Patient's other noncompliance with medication regimen; E83.39 Other disorders of phosphorus metabolism
CPT/HCPCS: 36415; 70450-TC; 70551-TC; 71010-TC; 80053; 80164; 80175; 80307; 81003; 81015; 82550; 82553; 82803; 82945; 83605; 83735; 84100; 84157; 84484; 85025; 85027; 85730; 86592; 86593; 86617; 86788; 86789; 86850; 86900; 86901; 87040; 87070; 87086; 87102; 87116; 87205; 87206; 87210; 87389; 87476; 87529; 89050; 93005; 93010; 94640; 97116-GP; 97161-GP; 99285-25

== ENCOUNTER 2017-04-06 12:44 | Inpatient (IN) | payer OTHER ==
[2017-04-06 15:51] VITALS: BMI 20.5
[2017-04-06] MEDS ORDERED: P-EPHED 60MG/TRIPROLIDI 2.5MG TABLET PO PRN (17:02)
[2017-04-06] MEDS ORDERED: LOPERAMIDE HCL 2 MG CAPSULE PO PRN (17:02)
[2017-04-06] MEDS ORDERED: diphenhydrAMINE HCL 50 MG CAPSULE PO PRN (17:02)
[2017-04-06] MEDS ORDERED: MENTHOL/PHENOL 1 EACH UD MM PRN (17:02)
[2017-04-06] MEDS ORDERED: guaiFENesin/D-METHORPHAN HB 10 ML UNIT-DOSE CUPS PO PRN (17:02)
[2017-04-06] MEDS ORDERED: MAGNESIUM CITRATE 300 ML BOTTLE PO PRN (17:02)
[2017-04-06] MEDS ORDERED: MAGNESIUM HYDROX 2400MG/30ML ORAL SUSPENSION 30 ML CUP PO PRN (17:02)
[2017-04-06] MEDS ORDERED: ACETAMINOPHEN 325 MG TABLET (FP) PO PRN (17:02)
[2017-04-06] MEDS ORDERED: NICOTINE POLACRILEX 2 MG GUM BC PRN (17:02)
[2017-04-06] MEDS ORDERED: MAG HYDROX/AL HYDROX/SIMETH 30 ML UNIT-DOSE CUP PO PRN (17:02)
[2017-04-06] MEDS ORDERED: ALBUTEROL SO4 6.7 GM HFA INHALER IH PRN (17:23)
[2017-04-06] MEDS ORDERED: ALBUTEROL SO4 2.5/IPRATROPIUM 0.5 INH SOL 3 ML VIAL.NEB. NEB PRN (17:24)
--- NOTE | 2017-04-06 17:37 | HP ---
Admission [facility] Chief Complaint: I need Rehab to stop using PCP Allergies/Adverse Reactions: Allergies Allergy/AdvReac Type Severity Reaction Status Date / Time latex Allergy Intermediate Hives Verified 04/06/17 17:01 penicillin G Allergy Intermediate Hives Verified 04/06/17 17:01 sulfamethoxazole Allergy Intermediate Hives Verified 04/06/17 17:01 [From Bactrim] tomato [Tomato] Allergy Intermediate Swelling Verified 04/06/17 17:01 trimethoprim [From Bactrim] Allergy Intermediate Hives Verified 04/06/17 17:01 Unclassified Drug Allergy Intermediate HIVES---NUT Verified 04/06/17 17:01 S aspirin Allergy Unknown Verified 04/06/17 17:01 History of Present Illness: 46 y/o woman with a long hx. of drug dependence is admitted to rehab. Pt. has been in previous rehab reports being drug free for a few months at a time.Uses walker to ambulate because of peripheral neuropathy. Exam Limitations: No Limitations - Ebola screening Have you traveled outside of the country in the last 21 days: No Have you had contact with anyone from an Ebola affected area: No - Review of Systems Constitutional: Diaphoresis EENT: reports: No Symptoms Reported Respiratory: reports: Cough (because of wheezing/asthma), Wheezing (asthma) Cardiac: reports: No Symptoms Reported GI: reports: No Symptoms Reported : reports: No Symptoms Reported Musculoskeletal: reports: Back Pain, Joint Pain, Muscle Pain Integumentary: reports: No Symptoms Reported Neuro: reports: Headache, Numbness, Seizure, Tingling Endocrine: reports: No Symptoms Reported Hematology: reports: No Symptoms Reported Psychiatric: reports: No Sypmtoms Reported Other Systems: Reviewed and Negative Patient History - Patient Medical History Hx Anemia: No Hx Asthma: Yes Hx Chronic Obstructive Pulmonary Disease (COPD): Yes Hx Cancer: No Hx Cardiac Disorders: No Hx Congestive Heart Failure: No Hx Hypertension: Yes Hx Hypercholesterolemia: No Hx Pacemaker: No HX Cerebrovascular Accident: No Hx Seizures: Yes Hx Dementia: No Hx Diabetes: No Hx Gastrointestinal Disorders: No Hx Genitourinary Disorders: No Hx Sexually Transmitted Disorders: No Hx Renal Disease (ESRD): No Hx Thyroid Disease: No Hx Human Immunodeficiency Virus (HIV): No Hx Hepatitis C: No Hx Suicide Attempt: No Hx Bipolar Disorder: Yes Hx Schizophrenia: No - Patient Surgical History Past Surgical History: Yes Other Surgical History: SX FOR TONSILLAR ABCESS AT 12 YRS OLD Anesthesia Reaction: (UNKNOWN) - PPD History Documented Results: Negative w/proof Implanted On Prior [facility] Admission?: Yes Date: 07/13/13 Results: 4 mm PPD to be Administered?: Yes - Reproductive History Patient is a Female of Child Bearing Age (11 -55 yrs old): Yes Last Menstrual Period: 03/22/17 Patient : No - Smoking Cessation Smoking history: Current every day smoker Have you smoked in the past 12 months: Yes Aproximately how many cigarettes per day: 15 Hx Chewing Tobacco Use: No Initiated information on smoking cessation: Yes 'Breaking Loose' booklet given: 04/06/17 - Substance & Tx. History Hx Alcohol Use: No Hx Substance Use: Yes Substance Use Type: Marijuana (PCP) Hx Substance Use Treatment: Yes (rehab) Family Disease History - Family Disease History Family Disease History: Diabetes: Grandparent, Father (htn,drug & alcohol), Mother (htn,drug & alcohol), Heart Disease: Father, Mother Admission Physical Exam S - Vital Signs Vital Signs: Vital Signs - 24 hr 04/06/17 15:48 Pulse Rate 87 Respiratory 18 Rate Blood Pressure 111/76 - Physical General Appearance: Yes: Within Normal Limits HEENTM: Yes: Within Normal Limits Respiratory: Yes: Chest Non-Tender, Lungs Clear, Normal Breath Sounds Neck: Yes: Supple Breast: Yes: Breast Exam Deferred Cardiology: Yes: Regular Rhythm, Regular Rate, S1, S2 Abdominal: Yes: Normal Bowel Sounds, Non Tender, Soft Genitourinary: Yes: Within Normal Limits Back: Yes: Within Normal Limits Musculoskeletal: Yes: Within Normal Limits Extremities: Yes: Within Normal Limits Neurological: Yes: Fully Oriented, Alert Integumentary: Yes: Within Normal Limits Lymphatic: Yes: Within Normal Limits - Diagnostic (1) Asthma Current Visit: Yes Status: Acute Qualifiers: Asthma severity: mild intermittent Asthma complication type: uncomplicated Qualified Code(s): J45.20 - Mild intermittent asthma, uncomplicated (2) COPD (chronic obstructive pulmonary disease) with emphysema Current Visit: Yes Status: Chronic Comment: cxray now,on inhalers (3) GERD (gastroesophageal reflux disease) Current Visit: Yes Status: Chronic Qualifiers: Esophagitis presence: without esophagitis Qualified Code(s): K21.9 - Gastro-esophageal reflux disease without esophagitis Comment: on meds, sees primary (4) HTN (hypertension) Current Visit: Yes Status: Chronic Qualifiers: Hypertension type: essential hypertension Qualified Code(s): I10 - Essential (primary) hypertension Comment: on meds, sees primary (5) Seizure disorder Current Visit: Yes Status: Chronic Comment: on depakote, gabapentin (6) PCP dependence Current Visit: Yes Status: Acute Cleared for Admission BH - Detox or Rehab Detox Regimen/Protocol: Not Applicable Claeared for Rehab Admission: Yes S Breath Alcohol Content Breath Alcohol Content: 0 Urine Drug Screen - Results Drug Screen Negative: No Urine Drug Screen Results: HENRY-Cocaine, PCP-Phencyclidine, BAR-Barbiturates
[2017-04-06] MEDS: PANTOPRAZOLE 40 MG TABLET (FP) PO SCH (19:34)
[2017-04-06] MEDS: lamoTRIgine 100 MG TABLET (FP) PO SCH (19:34)
[2017-04-06] MEDS: NICOTINE 21 MG/24 HOURS TOPICAL PATCH TD SCH (19:35)
[2017-04-06] MEDS: LIDOCAINE 5% TOPICAL PATCH TP SCH (19:35)
[2017-04-06] MEDS: ALBUTEROL SO4 2.5/IPRATROPIUM 0.5 INH SOL 3 ML VIAL.NEB. NEB SCH (19:44)
[2017-04-06] MEDS: THIAMINE HCL 100 MG TABLET (FP) PO SCH (21:29)
[2017-04-06] MEDS: MONTELUKAST NA 10 MG TABLET PO SCH (21:29)
[2017-04-06] MEDS: BUDESONIDE/FORMETEROL FUMARATE 160/4.5 mcg INHALER IH SCH (21:29)
[2017-04-06] MEDS: PHENYTOIN NA EXTENDED 100 MG CAPSULE (FP) PO SCH (21:29)
[2017-04-06] MEDS: LIDOCAINE PATCH REMOVAL MC SCH (21:29)
[2017-04-06] MEDS: DIVALPROEX SODIUM 500 MG TABLET E.C. PO SCH (21:29)
[2017-04-06 22:41] LABS: URINE APPEARANCE SLCLOUDY; URINE BILIRUBIN NEGATIVE (NEGATIVE); URINE COLOR YELLOW; URINE GLUCOSE (UA) NEGATIVE (NEGATIVE); URINE KETONE NEGATIVE (NEGATIVE); URINE NITRITE NEGATIVE (NEGATIVE); URINE PROTEIN NEGATIVE (NEGATIVE); URINE UROBILINOGEN NEGATIVE E.U./dl (0.2-1.0)
[2017-04-06 22:42] LABS: URINE BLOOD 3+ (NEGATIVE); URINE LEUK ESTERASE 3+ (NEGATIVE)
[2017-04-06 22:45] LABS: URINE BACTERIA RARE /hpf (NONE SEEN); URINE HYALINE CAST 1 /lpf; URINE MUCUS RARE; URINE RBC 31 /hpf (0-3); URINE WBC 127 /hpf (3-5)
[2017-04-06] MEDS ORDERED: PT OWN MED DRAWER 7, Y5N ONE (23:47)
[2017-04-07] MEDS: PHENYTOIN NA EXTENDED 100 MG CAPSULE (FP) PO SCH ×3 (06:25→22:05)
[2017-04-07] MEDS: PRENATAL VITAMINS W/ FOLIC ACID TABLET (FP) PO SCH (09:44)
[2017-04-07] MEDS: PANTOPRAZOLE 40 MG TABLET (FP) PO SCH (09:44)
[2017-04-07] MEDS: TRIAMTERENE AND HCTZ - 37.5 MG/25 MG CAPSULE PO SCH (09:44)
[2017-04-07] MEDS: DIVALPROEX SODIUM 500 MG TABLET E.C. PO SCH ×2 (09:44→22:05)
[2017-04-07 09:45] LABS: MCHC 33.5 g/dl (32.0-36.0); MEAN CELL VOLUME 98.6 fl (80-96); MEAN PLT VOLUME 7.8 fl (7.5-11.1); PLATELET COUNT 200 K/MM3 (134-434); RDW 14.6 % (11.6-15.6); WHITE BLOOD COUNT 6.1 K/mm3 (4.0-10.0)
[2017-04-07] MEDS: lamoTRIgine 100 MG TABLET (FP) PO SCH (09:45)
[2017-04-07] MEDS: NICOTINE 21 MG/24 HOURS TOPICAL PATCH TD SCH (09:46)
[2017-04-07] MEDS: LIDOCAINE 5% TOPICAL PATCH TP SCH (09:46)
[2017-04-07] MEDS: BUDESONIDE/FORMETEROL FUMARATE 160/4.5 mcg INHALER IH SCH ×2 (09:48→22:04)
[2017-04-07] MEDS: ALBUTEROL SO4 2.5/IPRATROPIUM 0.5 INH SOL 3 ML VIAL.NEB. NEB SCH (09:48)
[2017-04-07] MEDS ORDERED: PT OWN MED DRAWER 7, Y5N ONE (10:11)
--- NOTE | 2017-04-07 11:41 | HP ---
Psychiatrist Admission - Data Date of interview: 04/07/17 Admission source: [facility] Identifying data: This is the third [facility] admission for this 46 years old single Black female, mother of 5 children, unemployed on SSI/SSD, homeless Medical History: Significant for Asthma/COPD, HTN, GERD, DVT, Back pain, Fibromyalgia and history of surgery for tosillar abcess at age 12 Psychiatric History: Reports being diagnosed with Bipolar Disorder in February 2012 during her first inpt rehab admission to this facility. Reports 3 psychiatric admissions all to [facility] in [place], [place]. Reports receiving psychiatric services at the [facility] in [place] and he is prescribed Depakote 500 mg po BID and Seroquel XR 50 mg po daily. Denies history of previous suicidal attempt. At present, reports feeling mildly depressed bt sleeps well Physical/Sexual Abuse/Trauma History: Denies history of emotional, physical or sexual abuse as well as DV relationship Additional Comment: Reports history of one previous misdemeanor arrest. Reports being on probation currently Vital Signs: Vital Signs - 24 hr 04/06/17 04/07/17 04/07/17 15:48 00:30 03:30 Temperature Pulse Rate 87 Respiratory 18 18 18 Rate Blood Pressure 111/76 04/07/17 04/07/17 06:51 10:13 Temperature 98.2 F Pulse Rate 75 85 Respiratory 18 18 Rate Blood Pressure 124/76 115/75 Allergies/Adverse Reactions: Allergies Allergy/AdvReac Type Severity Reaction Status Date / Time latex Allergy Intermediate Hives Verified 04/06/17 17:01 penicillin G Allergy Intermediate Hives Verified 04/06/17 17:01 sulfamethoxazole Allergy Intermediate Hives Verified 04/06/17 17:01 [From Bactrim] tomato [Tomato] Allergy Intermediate Swelling Verified 04/06/17 17:01 trimethoprim [From Bactrim] Allergy Intermediate Hives Verified 04/06/17 17:01 Unclassified Drug Allergy Intermediate HIVES---NUT Verified 04/06/17 17:01 S aspirin Allergy Unknown Verified 04/06/17 17:01 Date of last physical exam: 04/06/17 Concur with the findings of this exam: Yes - Substance Abuse/Tx History Hx Alcohol Use: No Hx Substance Use: Yes (PCP, consumes 3 bags daily. Last used on 04/03/17) Hx Substance Use Treatment: Yes (2 previous inpt rehab @ [facility]. [facility]ended [facility]pt [facility]) - Admission Criteria Previous failed treatment: No Poor recovery environment: Yes Comorbidities: Yes Lacks judgement: Yes Mental Status Exam - Mental Status Exam Alert and Oriented to: Time, Place, Person Cognitive Function: Fair Patient Appearance: Well Groomed Mood: Depressed Affect: Appropriate Patient Behavior: Cooperative Speech Pattern: Clear Voice Loudness: Normal Thought Process: Intact, Goal Oriented Thought Disorder: Not Present Hallucinations: Denies Suicidal Ideation: Denies Homicidal Ideation: Denies Insight/Judgement: Fair Sleep: Fair Appetite: Good Muscle strength/Tone: Normal Gait/Station: Normal Psychiatric Findings - Problem List ([place] 1, 2,3) (1) Phencyclidine dependence Current Visit: Yes Status: Acute (2) Nicotine dependence Current Visit: Yes Status: Acute (3) Bipolar disorder Current Visit: Yes Status: Acute (4) Asthma Current Visit: Yes Status: Acute Qualifiers: Asthma severity: mild intermittent Asthma complication type: uncomplicated Qualified Code(s): J45.20 - Mild intermittent asthma, uncomplicated (5) COPD (chronic obstructive pulmonary disease) with emphysema Current Visit: Yes Status: Chronic Comment: cxray now,on inhalers (6) GERD (gastroesophageal reflux disease) Current Visit: Yes Status: Chronic Qualifiers: Esophagitis presence: without esophagitis Qualified Code(s): K21.9 - Gastro-esophageal reflux disease without esophagitis Comment: on meds, sees primary (7) HTN (hypertension) Current Visit: Yes Status: Chronic Qualifiers: Hypertension type: essential hypertension Qualified Code(s): I10 - Essential (primary) hypertension Comment: on meds, sees primary (8) Seizure disorder Current Visit: Yes Status: Chronic Comment: on depakote, gabapentin (9) Low back pain Current Visit: No Status: Chronic Comment: baclofen, stretches, heat saw neurosurgeon last year (dr rob [facility]) - not surgical candidate (10) Fibromyalgia Current Visit: Yes Status: Acute - Initial Treatment Plan Initial Treatment Plan: 1) Continue Depakote 500 mg po BID and Seroquel XR 50 mg po HS. 2) Valproic Acid Serum Level. 3) Monitor progress
[2017-04-07 12:35] LABS: ANION GAP 8 (8-16); CO2 28 mmol/L (21-32); COCKROFT - GAULT 73.8905; CREATININE 0.8 mg/dL (0.55-1.02); GLUCOSE,RANDOM 72 mg/dL (74-106)
[2017-04-07 12:36] LABS: ALBUMIN 2.9 g/dl (3.4-5.0); ALK PHOS 57 U/L (45-117); BILIRUBIN,TOTAL 0.2 mg/dL (0.2-1.0); CALCIUM 8.7 mg/dL (8.5-10.1); SGOT/AST 16 U/L (15-37); SGPT/ALT 22 U/L (12-78); TOT PROT 5.7 g/dl (6.4-8.2)
--- NOTE | 2017-04-07 12:42 | EKG ---
Test Reason : Blood Pressure : / mmHG Vent. Rate : 075 BPM Atrial Rate : 075 BPM P-R Int : 194 ms QRS Dur : 074 ms QT Int : 390 ms P-R-T Axes : 077 069 061 degrees QTc Int : 435 ms NORMAL SINUS RHYTHM ANTEROSEPTAL INFARCT (CITED ON OR BEFORE 09-MAR-2017) ABNORMAL ECG WHEN COMPARED WITH ECG OF 09-MAR-2017 14:33, VENT. RATE HAS DECREASED BY 40 BPM Confirmed by ELKE OLMEDO MD ([id number]) on 04/07/2017 12:41:28 PM Referred By: Confirmed By:ELKE OLMEDO MD
[2017-04-07] MEDS ORDERED: DIVALPROEX SODIUM 250 MG TABLET E.C. (FP) PO SCH (13:30)
[2017-04-07] MEDS: GABAPENTIN 400 MG CAPSULE (FP) PO SCH ×2 (14:32→22:05)
[2017-04-07] MEDS: MONTELUKAST NA 10 MG TABLET PO SCH (22:05)
[2017-04-07] MEDS: LIDOCAINE PATCH REMOVAL MC SCH (22:06)
[2017-04-07] MEDS: THIAMINE HCL 100 MG TABLET (FP) PO SCH (22:06)
[2017-04-08] MEDS: PHENYTOIN NA EXTENDED 100 MG CAPSULE (FP) PO SCH ×3 (06:02→21:04)
[2017-04-08] MEDS: GABAPENTIN 400 MG CAPSULE (FP) PO SCH ×3 (06:02→21:03)
[2017-04-08] MEDS: PANTOPRAZOLE 40 MG TABLET (FP) PO SCH (09:47)
[2017-04-08] MEDS: lamoTRIgine 100 MG TABLET (FP) PO SCH (09:47)
[2017-04-08] MEDS: PRENATAL VITAMINS W/ FOLIC ACID TABLET (FP) PO SCH (09:47)
[2017-04-08] MEDS: DIVALPROEX SODIUM 500 MG TABLET E.C. PO SCH ×2 (09:47→21:04)
[2017-04-08] MEDS: TRIAMTERENE AND HCTZ - 37.5 MG/25 MG CAPSULE PO SCH (09:47)
[2017-04-08] MEDS: NICOTINE 21 MG/24 HOURS TOPICAL PATCH TD SCH (09:49)
[2017-04-08] MEDS: LIDOCAINE 5% TOPICAL PATCH TP SCH (09:50)
[2017-04-08] MEDS: ALBUTEROL SO4 2.5/IPRATROPIUM 0.5 INH SOL 3 ML VIAL.NEB. NEB SCH ×3 (09:50→21:05)
[2017-04-08] MEDS: BUDESONIDE/FORMETEROL FUMARATE 160/4.5 mcg INHALER IH SCH ×2 (10:46→21:03)
[2017-04-08] MEDS: THIAMINE HCL 100 MG TABLET (FP) PO SCH (21:03)
[2017-04-08] MEDS: MONTELUKAST NA 10 MG TABLET PO SCH (21:04)
[2017-04-08] MEDS: LIDOCAINE PATCH REMOVAL MC SCH (21:06)
[2017-04-09] MEDS: GABAPENTIN 400 MG CAPSULE (FP) PO SCH ×3 (06:35→22:06)
[2017-04-09] MEDS: PHENYTOIN NA EXTENDED 100 MG CAPSULE (FP) PO SCH ×3 (06:35→22:06)
[2017-04-09] MEDS: IBUPROFEN 400 MG TABLET (FP) PO PRN (07:01)
[2017-04-09] MEDS: PRENATAL VITAMINS W/ FOLIC ACID TABLET (FP) PO SCH (10:00)
[2017-04-09] MEDS: PANTOPRAZOLE 40 MG TABLET (FP) PO SCH (10:00)
[2017-04-09] MEDS: lamoTRIgine 100 MG TABLET (FP) PO SCH (10:00)
[2017-04-09] MEDS: BUDESONIDE/FORMETEROL FUMARATE 160/4.5 mcg INHALER IH SCH ×2 (10:00→22:09)
[2017-04-09] MEDS: TRIAMTERENE AND HCTZ - 37.5 MG/25 MG CAPSULE PO SCH (10:00)
[2017-04-09] MEDS: LIDOCAINE 5% TOPICAL PATCH TP SCH (10:01)
[2017-04-09] MEDS: DIVALPROEX SODIUM 500 MG TABLET E.C. PO SCH ×2 (10:01→22:06)
[2017-04-09] MEDS: NICOTINE 21 MG/24 HOURS TOPICAL PATCH TD SCH (10:01)
[2017-04-09] MEDS: ALBUTEROL SO4 2.5/IPRATROPIUM 0.5 INH SOL 3 ML VIAL.NEB. NEB SCH ×2 (10:31→18:00)
[2017-04-09] MEDS: MONTELUKAST NA 10 MG TABLET PO SCH (22:06)
[2017-04-09] MEDS: THIAMINE HCL 100 MG TABLET (FP) PO SCH (22:07)
[2017-04-09] MEDS: LIDOCAINE PATCH REMOVAL MC SCH (22:08)
[2017-04-10] MEDS: GABAPENTIN 400 MG CAPSULE (FP) PO SCH ×3 (06:42→21:40)
[2017-04-10] MEDS: PHENYTOIN NA EXTENDED 100 MG CAPSULE (FP) PO SCH ×3 (06:42→21:41)
[2017-04-10] MEDS: TRIAMTERENE AND HCTZ - 37.5 MG/25 MG CAPSULE PO SCH (10:55)
[2017-04-10] MEDS: BUDESONIDE/FORMETEROL FUMARATE 160/4.5 mcg INHALER IH SCH ×2 (10:55→21:40)
[2017-04-10] MEDS: PRENATAL VITAMINS W/ FOLIC ACID TABLET (FP) PO SCH (10:55)
[2017-04-10] MEDS: DIVALPROEX SODIUM 500 MG TABLET E.C. PO SCH ×2 (10:55→21:41)
[2017-04-10] MEDS: ALBUTEROL SO4 2.5/IPRATROPIUM 0.5 INH SOL 3 ML VIAL.NEB. NEB SCH ×2 (10:55→21:42)
[2017-04-10] MEDS: LIDOCAINE 5% TOPICAL PATCH TP SCH (10:55)
[2017-04-10] MEDS: lamoTRIgine 100 MG TABLET (FP) PO SCH (10:55)
[2017-04-10] MEDS: NICOTINE 21 MG/24 HOURS TOPICAL PATCH TD SCH (10:55)
[2017-04-10] MEDS: PANTOPRAZOLE 40 MG TABLET (FP) PO SCH (10:55)
[2017-04-10] MEDS ORDERED: PHENYTOIN NA EXTENDED 100 MG CAPSULE (FP) PO ONE (17:35)
--- NOTE | 2017-04-10 17:44 | PN ---
[facility] Progress Note Note: Pt. had a witnessed seizure,she was helped by peers and did not fall.When I arrived she was post-ictal. She's now alert shielding her eyes from the lights BP 138/78 P 115 R 24 THEN DOWN TO 20 o2 SAT 98% TEMP 98.2F P : dilantin 300mg po stat dilantin,depakote & lamictal levels
[2017-04-10] MEDS: IBUPROFEN 400 MG TABLET (FP) PO PRN (18:19)
[2017-04-10] MEDS: THIAMINE HCL 100 MG TABLET (FP) PO SCH (21:40)
[2017-04-10] MEDS: MONTELUKAST NA 10 MG TABLET PO SCH (21:41)
[2017-04-10] MEDS: LIDOCAINE PATCH REMOVAL MC SCH (21:42)
[2017-04-11] MEDS: PHENYTOIN NA EXTENDED 100 MG CAPSULE (FP) PO SCH ×3 (06:03→21:26)
[2017-04-11] MEDS: GABAPENTIN 400 MG CAPSULE (FP) PO SCH ×3 (06:03→21:26)
[2017-04-11] MEDS: ALBUTEROL SO4 2.5/IPRATROPIUM 0.5 INH SOL 3 ML VIAL.NEB. NEB SCH ×2 (10:04→18:00)
[2017-04-11] MEDS: PANTOPRAZOLE 40 MG TABLET (FP) PO SCH (10:30)
[2017-04-11] MEDS: TRIAMTERENE AND HCTZ - 37.5 MG/25 MG CAPSULE PO SCH (10:30)
[2017-04-11] MEDS: DIVALPROEX SODIUM 500 MG TABLET E.C. PO SCH ×2 (10:30→21:27)
[2017-04-11] MEDS: PRENATAL VITAMINS W/ FOLIC ACID TABLET (FP) PO SCH (10:30)
[2017-04-11] MEDS: lamoTRIgine 100 MG TABLET (FP) PO SCH (10:30)
[2017-04-11] MEDS: NICOTINE 21 MG/24 HOURS TOPICAL PATCH TD SCH (10:31)
[2017-04-11] MEDS: LIDOCAINE 5% TOPICAL PATCH TP SCH (10:32)
[2017-04-11] MEDS: BUDESONIDE/FORMETEROL FUMARATE 160/4.5 mcg INHALER IH SCH ×2 (10:33→21:28)
[2017-04-11 11:23] LABS: VALPROIC ACID DEPAKOTE DEPAKAN 46.965 ug/ml (50-100)
--- NOTE | 2017-04-11 12:06 | PN ---
[facility] Progress Note Note: Anti-seizure medication levels are low Laboratory Results - last 24 hr 04/11/17 07:00 Phenytoin 5.8 L Valproic Acid 46.965 L P : dilantin 300mg stat depakote 500mg stat
[2017-04-11] MEDS ORDERED: PHENYTOIN NA EXTENDED 100 MG CAPSULE (FP) PO ONE (12:17)
[2017-04-11] MEDS ORDERED: DIVALPROEX SODIUM 500 MG TABLET E.C. PO ONE (12:17)
[2017-04-11] MEDS ORDERED: PT OWN MED DRAWER 7, Y5N ONE ×2 (13:27→14:14)
[2017-04-11] MEDS: MONTELUKAST NA 10 MG TABLET PO SCH (21:26)
[2017-04-11] MEDS: THIAMINE HCL 100 MG TABLET (FP) PO SCH (21:26)
[2017-04-11] MEDS: LIDOCAINE PATCH REMOVAL MC SCH (21:28)
[2017-04-12] MEDS: GABAPENTIN 400 MG CAPSULE (FP) PO SCH ×3 (06:11→21:29)
[2017-04-12] MEDS: PHENYTOIN NA EXTENDED 100 MG CAPSULE (FP) PO SCH ×3 (06:11→21:29)
[2017-04-12] MEDS: IBUPROFEN 400 MG TABLET (FP) PO PRN (06:13)
[2017-04-12] MEDS: PRENATAL VITAMINS W/ FOLIC ACID TABLET (FP) PO SCH (09:48)
[2017-04-12] MEDS: PANTOPRAZOLE 40 MG TABLET (FP) PO SCH (09:49)
[2017-04-12] MEDS: LIDOCAINE 5% TOPICAL PATCH TP SCH (09:49)
[2017-04-12] MEDS: DIVALPROEX SODIUM 500 MG TABLET E.C. PO SCH ×2 (09:49→21:29)
[2017-04-12] MEDS: ALBUTEROL SO4 2.5/IPRATROPIUM 0.5 INH SOL 3 ML VIAL.NEB. NEB SCH ×2 (09:49→18:00)
[2017-04-12] MEDS: lamoTRIgine 100 MG TABLET (FP) PO SCH (09:49)
[2017-04-12] MEDS: TRIAMTERENE AND HCTZ - 37.5 MG/25 MG CAPSULE PO SCH (09:49)
[2017-04-12] MEDS: NICOTINE 21 MG/24 HOURS TOPICAL PATCH TD SCH (09:49)
[2017-04-12] MEDS: BUDESONIDE/FORMETEROL FUMARATE 160/4.5 mcg INHALER IH SCH ×2 (09:52→21:28)
[2017-04-12] MEDS ORDERED: PT OWN MED DRAWER 7, Y5N ONE (09:53)
[2017-04-12 09:56] LABS: VALPROIC ACID DEPAKOTE DEPAKAN 45.132 ug/ml (50-100)
[2017-04-12] MEDS ORDERED: PHENYTOIN NA EXTENDED 100 MG CAPSULE (FP) PO ONE (13:52)
[2017-04-12] MEDS ORDERED: CYANOCOBALAMIN (VITAMIN B-12) 1000 MCG/1 ML VIAL IM ONE (13:59)
[2017-04-12 14:26] LABS: URINE APPEARANCE CLOUDY; URINE BILIRUBIN NEGATIVE (NEGATIVE); URINE COLOR YELLOW; URINE GLUCOSE (UA) NEGATIVE (NEGATIVE); URINE KETONE NEGATIVE (NEGATIVE); URINE NITRITE NEGATIVE (NEGATIVE); URINE PROTEIN NEGATIVE (NEGATIVE); URINE UROBILINOGEN NEGATIVE E.U./dl (0.2-1.0)
[2017-04-12 14:34] LABS: URINE BLOOD 2+ (NEGATIVE); URINE LEUK ESTERASE 3+ (NEGATIVE)
[2017-04-12 14:45] LABS: URINE BACTERIA FEW /hpf (NONE SEEN); URINE MUCUS RARE; URINE RBC 7 /hpf (0-3); URINE WBC 123 /hpf (3-5)
[2017-04-12] MEDS: MONTELUKAST NA 10 MG TABLET PO SCH (21:30)
[2017-04-12] MEDS: LIDOCAINE PATCH REMOVAL MC SCH (21:31)
[2017-04-12] MEDS: THIAMINE HCL 100 MG TABLET (FP) PO SCH (21:31)
[2017-04-13] MEDS: GABAPENTIN 400 MG CAPSULE (FP) PO SCH ×2 (06:20→14:57)
[2017-04-13] MEDS: PHENYTOIN NA EXTENDED 100 MG CAPSULE (FP) PO SCH ×2 (06:20→14:57)
[2017-04-13] MEDS ORDERED: LORAZEPAM CARPU-JECT 2 MG/ML DISP.SYRIN ONE (06:28)
[2017-04-13] MEDS ORDERED: LORAZEPAM CARPU-JECT 2 MG/ML DISP.SYRIN IM ONE (06:38)
--- NOTE | 2017-04-13 06:47 | PN ---
[facility] Progress Note Note: Rapid response was called after having a seizure. She was found lying on the ground, unresponsive, facial grimacing and muscle stiffening note. VSS. 2mg of Ativan IM was administered. EMS was called and she was transferred to [facility] for further evaluation. Fall protocol # 1 initiated BP 121/87, P. 103, R: 18, SaO2: 97%
[2017-04-13 07:36] VITALS: BP 108/62; PULSE 83; TEMP 98.3
[2017-04-13] MEDS ORDERED: VITAMIN B COMPLEX W/C COMBO TABLET (FP) PO SCH (10:00)
[2017-04-13] MEDS: DIVALPROEX SODIUM 500 MG TABLET E.C. PO SCH (10:56)
[2017-04-13] MEDS: TRIAMTERENE AND HCTZ - 37.5 MG/25 MG CAPSULE PO SCH (10:57)
[2017-04-13] MEDS: ALBUTEROL SO4 2.5/IPRATROPIUM 0.5 INH SOL 3 ML VIAL.NEB. NEB SCH (10:57)
[2017-04-13] MEDS: lamoTRIgine 100 MG TABLET (FP) PO SCH (10:57)
[2017-04-13] MEDS: LIDOCAINE 5% TOPICAL PATCH TP SCH (10:58)
[2017-04-13] MEDS: NICOTINE 21 MG/24 HOURS TOPICAL PATCH TD SCH (10:58)
[2017-04-13] MEDS: PANTOPRAZOLE 40 MG TABLET (FP) PO SCH (10:59)
[2017-04-13] MEDS: BUDESONIDE/FORMETEROL FUMARATE 160/4.5 mcg INHALER IH SCH (10:59)
[2017-04-13] MEDS: PRENATAL VITAMINS W/ FOLIC ACID TABLET (FP) PO SCH (10:59)
[2017-04-13] MEDS ORDERED: MIDAZOLAM HCL 2 MG/2 ML SINGLE DOSE VIAL IVPUSH ONE (11:30)
[2017-04-13] MEDS ORDERED: CHLORHEXIDINE GLUCONATE 4% CLEANSER FOR DECOLONIZATION TP SCH (22:00)
[2017-04-13] MEDS ORDERED: MUPIROCIN 2% TOPICAL OINTMENT FOR DECOLONIZATION NS SCH (22:00)
[2017-04-14] MEDS ORDERED: ENOXAPARIN NA (PORCINE) 40 MG/0.4 ML DISP.SYRIN SQ SCH (10:00)
== END 2017-04-13 15:55 | disposition short-term general hospital (02) | DRG 895 ==
LOC: YASAS 12:44 → Y3W 15:40
PROVIDERS: ADMIT Psychiatry & Neurology Psychiatry; ATTEND Psychiatry & Neurology Psychiatry
PROC: HZ42ZZZ Group Counseling for Substance Abuse Treatment, Cognitive-Behavioral (ICD-10-PCS; principal; 2017-04-06)
DX: F16.20 Hallucinogen dependence, uncomplicated (principal); F17.210 Nicotine dependence, cigarettes, uncomplicated; F31.9 Bipolar disorder, unspecified; J45.20 Mild intermittent asthma, uncomplicated; J44.9 Chronic obstructive pulmonary disease, unspecified; I10 Essential (primary) hypertension; K21.9 Gastro-esophageal reflux disease without esophagitis; M54.5 Low back pain; M79.7 Fibromyalgia; G40.909 Epilepsy, unspecified, not intractable, without status epilepticus; Z86.718 Personal history of other venous thrombosis and embolism; Z88.0 Allergy status to penicillin; Z88.8 Allergy status to other drugs, medicaments and biological substances; Z88.2 Allergy status to sulfonamides; Z91.018 Allergy to other foods; R56.9 Unspecified convulsions
CPT/HCPCS: 36415; 80053; 80164; 80175; 80185; 81003; 81015; 85027; 86593; 93005; 93010; 94640

== ENCOUNTER 2017-04-14 14:24 | Inpatient (IN) | payer OTHER ==
[2017-04-14 14:48] VITALS: BMI 21.9
--- NOTE | 2017-04-14 15:35 | PN ---
[facility] Progress Note Note: PT WAS ADMITTED TO REHAB ON 04/06/17 AND HAD AN ACUTE SEIZURE EPISODE ON 04/13/17 THEN TRANSFERRED TO [facility] ER. PT WAS STABILIZED AND CAME BACK HERE TO CONTINUE REHAB. ALERT O X 3. NAD. AMBULATING WITH A CANE. Vital Signs Temperature 96.9 F L 04/14/17 14:42 Pulse Rate 88 04/14/17 14:42 Respiratory Rate 18 04/14/17 14:42 Blood Pressure 105/64 04/14/17 14:42 O2 Sat by Pulse Oximetry (%) PLAN:PT MAY CONTINUE REHAB TREATMENT.
[2017-04-14] MEDS ORDERED: MAG HYDROX/AL HYDROX/SIMETH 30 ML UNIT-DOSE CUP PO PRN (15:44)
[2017-04-14] MEDS ORDERED: P-EPHED 60MG/TRIPROLIDI 2.5MG TABLET PO PRN (15:44)
[2017-04-14] MEDS ORDERED: MENTHOL/PHENOL 1 EACH UD MM PRN (15:44)
[2017-04-14] MEDS ORDERED: guaiFENesin/D-METHORPHAN HB 10 ML UNIT-DOSE CUPS PO PRN (15:44)
[2017-04-14] MEDS ORDERED: NICOTINE POLACRILEX 2 MG GUM BC PRN (15:44)
[2017-04-14] MEDS ORDERED: IBUPROFEN 400 MG TABLET (FP) PO PRN (15:44)
[2017-04-14] MEDS ORDERED: MAGNESIUM HYDROX 2400MG/30ML ORAL SUSPENSION 30 ML CUP PO PRN (15:44)
[2017-04-14] MEDS ORDERED: MAGNESIUM CITRATE 300 ML BOTTLE PO PRN (15:44)
[2017-04-14] MEDS ORDERED: diphenhydrAMINE HCL 50 MG CAPSULE PO PRN (15:44)
[2017-04-14] MEDS ORDERED: LOPERAMIDE HCL 2 MG CAPSULE PO PRN (15:44)
[2017-04-14] MEDS ORDERED: ALBUTEROL SO4 6.7 GM HFA INHALER IH PRN (15:46)
[2017-04-14] MEDS ORDERED: GABAPENTIN 300 MG CAPSULE (FP) PO SCH (17:00)
[2017-04-14] MEDS: ACETAMINOPHEN 325 MG TABLET (FP) PO PRN (18:26)
[2017-04-14] MEDS: GABAPENTIN 400 MG CAPSULE (FP) PO SCH (21:35)
[2017-04-14] MEDS: MONTELUKAST NA 10 MG TABLET PO SCH (21:35)
[2017-04-14] MEDS: THIAMINE HCL 100 MG TABLET (FP) PO SCH (21:35)
[2017-04-14] MEDS: PHENYTOIN NA EXTENDED 100 MG CAPSULE (FP) PO SCH (21:35)
[2017-04-14] MEDS: BUDESONIDE/FORMETEROL FUMARATE 160/4.5 mcg INHALER IH SCH (21:35)
[2017-04-14] MEDS: NICOTINE 14 MG/24 HOURS TOPICAL PATCH TD SCH (22:58)
[2017-04-14 23:21] LABS: URINE APPEARANCE CLEAR; URINE BILIRUBIN NEGATIVE (NEGATIVE); URINE COLOR YELLOW; URINE GLUCOSE (UA) NEGATIVE (NEGATIVE); URINE KETONE TRACE (NEGATIVE); URINE NITRITE NEGATIVE (NEGATIVE); URINE PROTEIN NEGATIVE (NEGATIVE); URINE UROBILINOGEN NEGATIVE E.U./dl (0.2-1.0)
[2017-04-14 23:23] LABS: URINE BLOOD 2+ (NEGATIVE); URINE LEUK ESTERASE TRACE (NEGATIVE)
[2017-04-14 23:25] LABS: URINE MUCUS RARE; URINE RBC 34 /hpf (0-3); URINE WBC 9 /hpf (3-5)
[2017-04-15] MEDS: GABAPENTIN 400 MG CAPSULE (FP) PO SCH ×3 (06:17→21:53)
[2017-04-15] MEDS: PHENYTOIN NA EXTENDED 100 MG CAPSULE (FP) PO SCH ×3 (06:17→21:53)
[2017-04-15] MEDS ORDERED: PT OWN MED DRAWER 7, Y5N ONE ×2 (09:16→19:37)
[2017-04-15] MEDS: NICOTINE 14 MG/24 HOURS TOPICAL PATCH TD SCH (10:06)
[2017-04-15] MEDS: lamoTRIgine 100 MG TABLET (FP) PO SCH (10:07)
[2017-04-15] MEDS: PRENATAL VITAMINS W/ FOLIC ACID TABLET (FP) PO SCH (10:07)
[2017-04-15] MEDS: BUDESONIDE/FORMETEROL FUMARATE 160/4.5 mcg INHALER IH SCH ×2 (10:08→21:53)
[2017-04-15] MEDS: HYDROCHLOROTHIAZIDE 25 MG TABLET (FP) PO SCH (10:08)
--- NOTE | 2017-04-15 11:23 | HP ---
Psychiatrist Admission - Data Date of interview: 04/15/17 Admission source: [facility] Identifying data: This is one of the multiple admission to [address] [place] [address] [facility] for this 46 years olf AA single female Medical History: Significant for COPD,DVT,HTN,Chronic arthritis,Fibromialgia, Neuropathy. Psychiatric History: Report first contact with psychiatrist in due to impulsive behavior.patient was dx with Bipolar disorder .She reports 3 psychiatric hospitalizations.Patient is currently under care of psychiatrist [facility] in [place].According to her she receives Seroquel 50 mg po hs and Depakote 500 mg po bid. Physical/Sexual Abuse/Trauma History: reports misdemeanor arrest,on probation. Vital Signs: Vital Signs - 24 hr 04/14/17 04/14/17 04/15/17 14:42 22:40 06:58 Temperature 96.9 F L 97.9 F 97.8 F Pulse Rate 88 80 73 Respiratory 18 16 18 Rate Blood Pressure 105/64 102/67 115/76 04/15/17 09:17 Temperature Pulse Rate 93 H Respiratory Rate Blood Pressure 93/65 Allergies/Adverse Reactions: Allergies Allergy/AdvReac Type Severity Reaction Status Date / Time latex Allergy Intermediate Hives Verified 04/14/17 14:55 penicillin G Allergy Intermediate Hives Verified 04/14/17 14:55 sulfamethoxazole Allergy Intermediate Hives Verified 04/14/17 14:55 [From Bactrim] tomato [Tomato] Allergy Intermediate Swelling Verified 04/14/17 14:55 trimethoprim [From Bactrim] Allergy Intermediate Hives Verified 04/14/17 14:55 Unclassified Drug Allergy Intermediate HIVES---NUT Verified 04/14/17 14:55 S aspirin Allergy Unknown Verified 04/14/17 14:55 Date of last physical exam: 04/14/17 Concur with the findings of this exam: Yes - Substance Abuse/Tx History Hx Alcohol Use: Yes (socially) Hx Substance Use: Yes (reports smoking PCP since 35 yo,about 4 bags daily) Substance Use Type: Alcohol Hx Substance Use Treatment: Yes (multiple inpatinet/outpatient rehabs and detox) - Admission Criteria Previous failed treatment: Yes Poor recovery environment: Yes Comorbidities: Yes Lacks judgement: Yes Mental Status Exam - Mental Status Exam Alert and Oriented to: Time, Place, Person Cognitive Function: Grossly Intact Patient Appearance: Unkempt Mood: Hostile, Irritable Affect: Labile Patient Behavior: Guarded, Impulsive, Resitive to Care Speech Pattern: Clear Thought Process: Goal Oriented Thought Disorder: Not Present Hallucinations: Denies Suicidal Ideation: Denies Homicidal Ideation: Denies Insight/Judgement: Poor Sleep: Fair Appetite: Fair Muscle strength/Tone: Normal Gait/Station: Normal Psychiatric Findings - Problem List ([place] 1, 2,3) (1) Asthma Status: Chronic Qualifiers: Qualified Code(s): J45.20 - Mild intermittent asthma, uncomplicated (2) Bipolar disorder Status: Chronic (3) DVT prophylaxis Status: Acute (4) Fibromyalgia Status: Chronic (5) Nicotine dependence Status: Chronic - Initial Treatment Plan Initial Treatment Plan: Seroquel 50 mg po hs.Hold Depakote since combination with Lamictal can give severe life threatening condition.Will monitor porgress.
[2017-04-15] MEDS ORDERED: DIVALPROEX SODIUM 500 MG TABLET E.C. PO SCH (12:00)
[2017-04-15] MEDS: ACETAMINOPHEN 325 MG TABLET (FP) PO PRN (13:26)
[2017-04-15] MEDS ORDERED: DIVALPROEX SODIUM 500 MG TABLET E.C. PO ONE (17:00)
[2017-04-15] MEDS: LIDOCAINE 5% TOPICAL PATCH TP SCH (17:03)
[2017-04-15] MEDS: THIAMINE HCL 100 MG TABLET (FP) PO SCH (21:53)
[2017-04-15] MEDS: MONTELUKAST NA 10 MG TABLET PO SCH (21:54)
[2017-04-15] MEDS: DIVALPROEX SODIUM 500 MG TABLET E.C. PO SCH (21:54)
[2017-04-15] MEDS: QUEtiapine FUMARATE 50 MG TABLET PO SCH (22:10)
[2017-04-15] MEDS: LIDOCAINE PATCH REMOVAL MC SCH (22:11)
[2017-04-16] MEDS: PHENYTOIN NA EXTENDED 100 MG CAPSULE (FP) PO SCH ×3 (06:50→21:33)
[2017-04-16] MEDS: GABAPENTIN 400 MG CAPSULE (FP) PO SCH ×3 (06:50→21:33)
[2017-04-16] MEDS ORDERED: PT OWN MED DRAWER 7, Y5N ONE (09:01)
[2017-04-16] MEDS: PRENATAL VITAMINS W/ FOLIC ACID TABLET (FP) PO SCH (09:54)
[2017-04-16] MEDS: HYDROCHLOROTHIAZIDE 25 MG TABLET (FP) PO SCH (09:54)
[2017-04-16] MEDS: DIVALPROEX SODIUM 500 MG TABLET E.C. PO SCH ×2 (09:54→21:32)
[2017-04-16] MEDS: lamoTRIgine 100 MG TABLET (FP) PO SCH (09:54)
[2017-04-16] MEDS: BUDESONIDE/FORMETEROL FUMARATE 160/4.5 mcg INHALER IH SCH ×2 (09:55→21:34)
[2017-04-16] MEDS: NICOTINE 14 MG/24 HOURS TOPICAL PATCH TD SCH (09:56)
[2017-04-16] MEDS: LIDOCAINE 5% TOPICAL PATCH TP SCH (09:57)
[2017-04-16] MEDS: ACETAMINOPHEN 325 MG TABLET (FP) PO PRN (12:34)
[2017-04-16] MEDS: LIDOCAINE PATCH REMOVAL MC SCH ×2 (14:15→21:34)
[2017-04-16] MEDS: THIAMINE HCL 100 MG TABLET (FP) PO SCH (21:32)
[2017-04-16] MEDS: QUEtiapine FUMARATE 50 MG TABLET PO SCH (21:33)
[2017-04-16] MEDS: MONTELUKAST NA 10 MG TABLET PO SCH (21:33)
[2017-04-17] MEDS: GABAPENTIN 400 MG CAPSULE (FP) PO SCH ×3 (06:54→21:38)
[2017-04-17] MEDS: PHENYTOIN NA EXTENDED 100 MG CAPSULE (FP) PO SCH ×3 (06:54→21:38)
[2017-04-17 07:14] VITALS: TEMP 97.9
[2017-04-17] MEDS ORDERED: PT OWN MED DRAWER 7, Y5N ONE (08:49)
[2017-04-17] MEDS: PRENATAL VITAMINS W/ FOLIC ACID TABLET (FP) PO SCH (10:00)
[2017-04-17] MEDS: lamoTRIgine 100 MG TABLET (FP) PO SCH (10:00)
[2017-04-17] MEDS: DIVALPROEX SODIUM 500 MG TABLET E.C. PO SCH ×2 (10:00→21:38)
[2017-04-17] MEDS: LIDOCAINE 5% TOPICAL PATCH TP SCH (10:01)
[2017-04-17] MEDS: HYDROCHLOROTHIAZIDE 25 MG TABLET (FP) PO SCH (10:01)
[2017-04-17] MEDS: NICOTINE 14 MG/24 HOURS TOPICAL PATCH TD SCH (10:01)
[2017-04-17] MEDS: BUDESONIDE/FORMETEROL FUMARATE 160/4.5 mcg INHALER IH SCH ×2 (10:01→21:38)
[2017-04-17] MEDS: THIAMINE HCL 100 MG TABLET (FP) PO SCH (21:38)
[2017-04-17] MEDS: QUEtiapine FUMARATE 50 MG TABLET PO SCH (21:39)
[2017-04-17] MEDS: MONTELUKAST NA 10 MG TABLET PO SCH (21:40)
[2017-04-17] MEDS: LIDOCAINE PATCH REMOVAL MC SCH (21:40)
[2017-04-18] MEDS: PHENYTOIN NA EXTENDED 100 MG CAPSULE (FP) PO SCH ×2 (07:07→13:20)
[2017-04-18] MEDS: ACETAMINOPHEN 325 MG TABLET (FP) PO PRN ×2 (07:08→11:04)
[2017-04-18] MEDS: GABAPENTIN 400 MG CAPSULE (FP) PO SCH ×2 (07:08→13:20)
[2017-04-18 09:48] VITALS: BP 107/70; PULSE 97
[2017-04-18] MEDS ORDERED: CYANOCOBALAMIN (VITAMIN B-12) 1000 MCG/1 ML VIAL IM ONE (10:15)
[2017-04-18] MEDS: DIVALPROEX SODIUM 500 MG TABLET E.C. PO SCH (10:17)
[2017-04-18] MEDS: HYDROCHLOROTHIAZIDE 25 MG TABLET (FP) PO SCH (10:17)
[2017-04-18] MEDS: LIDOCAINE 5% TOPICAL PATCH TP SCH (10:17)
[2017-04-18] MEDS: lamoTRIgine 100 MG TABLET (FP) PO SCH (10:17)
[2017-04-18] MEDS: NICOTINE 14 MG/24 HOURS TOPICAL PATCH TD SCH (10:17)
[2017-04-18] MEDS: PRENATAL VITAMINS W/ FOLIC ACID TABLET (FP) PO SCH (10:18)
[2017-04-18] MEDS: BUDESONIDE/FORMETEROL FUMARATE 160/4.5 mcg INHALER IH SCH (11:06)
[2017-04-18] MEDS ORDERED: PT OWN MED DRAWER 7, Y5N ONE (11:07)
--- NOTE | 2017-04-18 16:36 | PN ---
Psychiatric Progress Note Vital Signs: Vital Signs Period Temp Pulse Resp BP Sys/Slade Pulse Ox Last 24 Hr 97.9 F 87-97 18-18 97-107/70-73 Date of Session: 04/18/17 HPI: Patient addressed PCP dependence comorbid with Bipolar disorder. ROS: Significant for Seizure disorder,DVT,BA,COPD,GERD,Cerebral anoxic injury. Current Medications: Active Medications Generic Name Dose Route Start Last Admin Trade Name Freq PRN Reason Stop Dose Admin Acetaminophen 650 mg 04/14/17 15:44 04/18/17 11:04 Tylenol - PO 650 mg Q4H PRN Administration PAIN Al Hydroxide/Mg Hydroxide 30 ml 04/14/17 15:44 Mylanta Oral Suspension - PO Q6H PRN DYSPEPSIA Albuterol Sulfate 2 puff 04/14/17 15:46 Ventolin Hfa Inhaler - IH Q4H PRN ASTHMA Budesonide/Formoterol Fumarate 1 puff 04/14/17 22:00 04/18/17 11:06 Symbicort 160/4.5mcg - IH 1 puff BID ERNESTINE Administration Diphenhydramine HCl 50 mg 04/14/17 15:44 Benadryl - PO HSMR1 PRN INSOMNIA Divalproex Sodium 500 mg 04/15/17 22:00 04/18/17 10:17 Depakote - PO 500 mg BID ERNESTINE Administration Eucalyptus/Menthol/Phenol/Sorbitol 1 each 04/14/17 15:44 Cepastat Lozenge - MM Q4H PRN SORE THROAT Gabapentin 800 mg 04/14/17 17:00 04/18/17 13:20 Neurontin - PO 800 mg TID ERNESTINE Administration Guaifenesin 10 ml 04/14/17 15:44 Robitussin Dm - PO Q6H PRN COUGH Hydrochlorothiazide 25 mg 04/15/17 10:00 04/18/17 10:17 Hctz - PO 25 mg DAILY ERNESTINE Administration Lamotrigine 100 mg 04/15/17 10:00 04/18/17 10:17 Lamictal - PO 100 mg DAILY ERNESTINE Administration Lidocaine 1 patch 04/15/17 15:30 04/18/17 10:17 Lidoderm Patch - TP 1 patch DAILY ERNESTINE Administration Loperamide HCl 4 mg 04/14/17 15:44 Imodium - PO Q6H PRN DIARRHEA Magnesium Citrate 300 ml 04/14/17 15:44 Citroma - PO Q48H PRN CONSTIPATION Magnesium Hydroxide 30 ml 04/14/17 15:44 Milk Of Magnesia - PO DAILY PRN CONSTIPATION Miscellaneous 1 each 04/15/17 22:00 04/17/17 21:40 Lidoderm Patch Removal MC 1 each DAILY@2200 ERNESTINE Administration Montelukast Sodium 10 mg 04/14/17 22:00 04/17/17 21:40 Singulair - PO 10 mg HS ERNESTINE Administration Nicotine 14 mg 04/14/17 17:00 04/18/17 10:17 Nicoderm Patch - TD 14 mg DAILY ERNESTINE Administration Nicotine Polacrilex 2 mg 04/14/17 15:44 Nicorette Gum - BC Q2H PRN NICOTINE REPLACEMENT RX Phenytoin Sodium 100 mg 04/14/17 22:00 04/18/17 13:20 Dilantin - PO 100 mg TID ERNESTINE Administration Multivit/Folic Acid/Iron 1 tab 04/15/17 10:00 04/18/17 10:18 Vitamins ([facility]) - PO 1 tab DAILY ERNESTINE Administration Pseudoephedrine/Triprolidine 1 combo 04/14/17 15:44 Actifed - PO TID PRN NASAL CONGESTION Quetiapine Fumarate 50 mg 04/15/17 22:00 04/17/17 21:39 Seroquel - PO 50 mg HS ERNESTINE Administration Thiamine HCl 100 mg 04/14/17 22:00 04/17/17 21:38 Vitamin B1 - PO 100 mg HS ERNESTINE Administration Current Side Effect: No Lab tests ordered: No Lab tests reviewed: Yes Provider note:: Patient completed this program today.She has her treatment goals partially and will continue to address her issues on outpatient basis at [facility].Patient continues to find that Depakote 500 mg po bid,Lamictal 100 mg po daily,Seroquel 50 mg po hs and Neurontin 600 mg po bid help to cope with her mood instability,anxiety,depression and sleeping difficulties.Scripts for 30 days supply provided. Patient identifies areas of difficulties which contribute to relapse.Coping skills,support system utilization has been discussed with the patient along with other mechanisms for maintenance of recovery process. Patient is stable for discharge today. Total face to face time:: 35 Mental Status Exam - Mental Status Exam Alert and Oriented to: Time, Place, Person Cognitive Function: Grossly Intact Patient Appearance: Well Groomed Mood: Euthymic Affect: Mood Congruent Patient Behavior: Appropriate Speech Pattern: Clear Voice Loudness: Normal Thought Disorder: Not Present Hallucinations: Denies Suicidal Ideation: Denies Homicidal Ideation: Denies Insight/Judgement: Fair Sleep: Fair Appetite: Good Muscle strength/Tone: Normal Gait/Station: Normal Psychiatric Treatment Plan - Problem List (1) Asthma Qualifiers: Qualified Code(s): J45.20 - Mild intermittent asthma, uncomplicated
--- NOTE | 2017-04-18 17:17 | PN ---
S Progress Note Note: observed patient walking out the unit, refuses to discuss e prescription with the provider, appears to be agreed to follow up with pulmonology for asthma and neurology for seizure.
== END 2017-04-18 19:00 | disposition home or self-care (01) | DRG 895 ==
LOC: YASAS 14:24 → Y3E 15:02
PROVIDERS: ADMIT Psychiatry & Neurology Psychiatry; ATTEND Psychiatry & Neurology Psychiatry
PROC: HZ42ZZZ Group Counseling for Substance Abuse Treatment, Cognitive-Behavioral (ICD-10-PCS; principal; 2017-04-14)
DX: F16.20 Hallucinogen dependence, uncomplicated (principal); F17.210 Nicotine dependence, cigarettes, uncomplicated; F31.9 Bipolar disorder, unspecified; J45.20 Mild intermittent asthma, uncomplicated; M79.7 Fibromyalgia; Z86.718 Personal history of other venous thrombosis and embolism; Z79.01 Long term (current) use of anticoagulants
CPT/HCPCS: 36415; 70450-TC; 71010-TC; 80048; 80053; 80164; 80185; 80307; 81003; 81015; 83605; 84703; 85025; 93005; 93010; 95816; 99285-25; G0378

== ENCOUNTER 2018-08-02 13:16 | Emergency (ER) | payer MEDICARE, OTHER ==
[2018-08-02 13:29] VITALS: BP 119/86; PULSE 96; TEMP 98.7; BMI 17.8
--- NOTE | 2018-08-02 13:29 | PDOC ---
Rapid Medical Evaluation Chief Complaint: Nausea/Vomiting Time Seen by Provider: 08/02/18 13:22 Medical Evaluation: Allergies Allergy/AdvReac Type Severity Reaction Status Date / Time latex Allergy Intermediate Hives Verified 04/14/17 14:55 penicillin G Allergy Intermediate Hives Verified 04/14/17 14:55 sulfamethoxazole Allergy Intermediate Hives Verified 04/14/17 14:55 [From Bactrim] tomato [Tomato] Allergy Intermediate Swelling Verified 04/14/17 14:55 trimethoprim [From Bactrim] Allergy Intermediate Hives Verified 04/14/17 14:55 Unclassified Drug Allergy Intermediate HIVES---NUT Verified 04/14/17 14:55 S aspirin Allergy Unknown Verified 04/14/17 14:55 08/02/18 13:25 The patient presents to the ED with: c/o mid abd pain with cramping after eating , lightheadedness, and nausea. food affects bowel movements, no travel, hx neuropathy, on pain meds, + weight loss x 2months The patient on brief exam: vss, bs+ x 4 The patient ordered for: cbc, comp , lipase, mag, ua, upreg The patient to proceed to the ED Discharge Disposition - Diagnosis Abdominal pain - Referrals - Patient Instructions - Post Discharge Activity
[2018-08-02 14:41] LABS: BASO % 0.5 % (0-2.0); EOS % 3.9 % (0-4.5); HEMATOCRIT 35.9 % (32.4-45.2); LYMPH % 31.4 % (8-40); MCH 32.5 pg (25.7-33.7); MCHC 33.4 g/dl (32.0-36.0); MEAN CELL VOLUME 97.1 fl (80-96); MEAN PLT VOLUME 8.2 fl (7.5-11.1); MONO % 7.5 % (3.8-10.2); NEUT % 56.7 % (42.8-82.8); PLATELET COUNT 230 K/MM3 (134-434); WHITE BLOOD COUNT 5.9 K/mm3 (4.0-10.0)
[2018-08-02 15:04] LABS: ALBUMIN 3.3 g/dl (3.4-5.0); ALK PHOS 64 U/L (45-117); ANION GAP 0 MMOL/L (8-16); BILIRUBIN,TOTAL 0.2 mg/dL (0.2-1); BLOOD UREA NITROGEN 15 mg/dL (7-18); CALCIUM 9.1 mg/dL (8.5-10.1); CHLORIDE 110 mmol/L (98-107); CO2 32 mmol/L (21-32); CREATININE 0.6 mg/dL (0.55-1.3); GLUCOSE,RANDOM 104 mg/dL (74-106); LIPASE 89 U/L (73-393); POTASSIUM 4.8 mmol/L (3.5-5.1); SGOT/AST 28 U/L (15-37); SGPT/ALT 24 U/L (13-61); SODIUM 142 mmol/L (136-145); TOT PROT 6.6 g/dl (6.4-8.2)
[2018-08-02] MEDS ORDERED: morphine CARPU-JECT 2 MG/1 ML DISP.SYRIN IVPUSH ONE (15:09)
[2018-08-02] MEDS ORDERED: SODIUM CHLORIDE 1,000 ML IV STA (15:09)
[2018-08-02] MEDS ORDERED: ONDANSETRON 4 MG/2 ML VIAL IVPUSH ONE (15:09)
[2018-08-02] MEDS ORDERED: ONDANSETRON 4 MG/2 ML VIAL ONE (15:18)
[2018-08-02] MEDS ORDERED: MORPHINE SULFATE 2 MG/ML VIAL ONE (15:18)
--- NOTE | 2018-08-02 15:27 | PDOC ---
History of Present Illness - General Chief Complaint: Nausea/Vomiting Stated Complaint: ABD PAIN Time Seen by Provider: 08/02/18 13:22 - History of Present Illness Initial Comments: 47yo F with PMH of seizures not well-controlled (last seizure about a month ago) , bipolar disorder, polysubstance abuse (last used PCP a couple days ago), HTN, COPD, GERD presenting with abdominal pain. Patient was a difficult historian because of her severe pain and she says her seizures have affected her memory. She reports the abdominal pain has been going on for the past several months. Eating makes her pain worse. She has not taking anything at home for her pain. Patient states that bowel movements are regular, brown, and formed with intermittent presence of blood. She has also vomited intermittently, sometimes with blood and bile. Appetite has been decreased. Patient saw her primary care physician, Dr. Mosquera (sp?), for this abdominal pain and received a medication which she believes made her pain worse. She is uncertain what this medicine is. Menstrual period one month ago. No dysuria or hematuria. Has never seen a GI doctor. Denies history of abdominal surgery, kidney stones, gallstones, pancreatitis, or ulcers. Reports recent fevers and chills. Past History - Past Medical History Allergies/Adverse Reactions: Allergies Allergy/AdvReac Type Severity Reaction Status Date / Time latex Allergy Intermediate Hives Verified 08/02/18 13:29 penicillin G Allergy Intermediate Hives Verified 08/02/18 13:29 sulfamethoxazole Allergy Intermediate Hives Verified 08/02/18 13:29 [From Bactrim] tomato [Tomato] Allergy Intermediate Swelling Verified 08/02/18 13:29 trimethoprim [From Bactrim] Allergy Intermediate Hives Verified 08/02/18 13:29 Unclassified Drug Allergy Intermediate HIVES---NUT Verified 08/02/18 13:29 S aspirin Allergy Unknown Verified 08/02/18 13:29 Home Medications: Ambulatory Orders Budesonide/Formeterol Fumarate [SYMBICORT 160/4.5mcg -] 1 inh PO BID 03/09/17 Montelukast Na [Singulair -] 10 mg PO HS 03/09/17 Divalproex Sodium [Depakote] 500 mg PO BID #120 tablet. 03/13/17 Lamotrigine [LaMICtal -] 100 mg PO DAILY #30 tablet 03/13/17 Albuterol Sulfate Inhaler - [Ventolin HFA Inhaler -] 2 inh PO Q4H PRN 04/06/17 Cetirizine HCl [Zyrtec -] 10 mg PO DAILY PRN 04/06/17 Folic Acid - 1 mg PO DAILY 04/06/17 Hydrochlorothiazide 25 mg PO DAILY 04/06/17 Ibuprofen [Motrin -] 600 mg PO BID PRN 04/06/17 Lidocaine 5% Top. Ointment [Xylocaine 5% Top. Ointment -] 1 applic TP PRN PRN Phenytoin Na Extended [Dilantin -] 100 mg PO TID 04/06/17 Nicotine Patch [Nicoderm Patch -] 7 mg TD HS patch 04/14/17 Nicotine Polacrilex [Nicorelief -] 2 mg BUC Q2H PRN #0 gum 04/14/17 Quetiapine Fumarate [Seroquel -] 50 mg PO HS #30 tablet 04/15/17 Divalproex Sodium [Depakote] 500 mg PO BID #120 tablet. MDD 1000 mg 04/18/17 Gabapentin [Neurontin -] 800 mg PO Q8H #120 cap 04/18/17 Lamotrigine [LaMICtal -] 100 mg PO DAILY #30 tablet 04/18/17 Anemia: No Asthma: Yes Cancer: No Cardiac Disorders: No CVA: No COPD: Yes CHF: No Dementia: No Diabetes: No GI Disorders: No Disorders: No HTN: Yes (ON MEDS.) Hypercholesterolemia: No Kidney Stones: No Seizures: Yes (ON MEDICATION) Thyroid Disease: No - Surgical History Neurologic Surgery: No - Reproductive History PID: No - Suicide/Smoking/Psychosocial Hx Smoking Status: Yes Smoking History: Never smoked Have you smoked in the past 12 months: No Number of Cigarettes Smoked Daily: 15 Information on smoking cessation initiated: No 'Breaking Loose' booklet given: 04/13/17 Hx Alcohol Use: No Drug/Substance Use Hx: No Substance Use Type: Alcohol Hx Substance Use Treatment: Yes (multiple inpatinet/outpatient rehabs and detox) Review of Systems - Review of Systems Comments:: Constitutional: +fever, +chills HEENT: no throat pain, no dysphagia Cardiovascular: no chest pain, no palpitations Respiratory: no cough, no shortness of breath Gastrointestinal: +abdominal pain, +nausea, +vomiting Genitourinary: no dysuria, no frequency Musculoskeletal: no myalgia, no arthralgia Skin: no rash, no itching Neurologic: no headache, no dizziness *Physical Exam - Vital Signs Last Vital Signs Temp Pulse Resp BP Pulse Ox 98.7 F 96 H 16 119/86 99 08/02/18 13:24 08/02/18 13:24 08/02/18 13:24 08/02/18 13:24 08/02/18 13:24 - Physical Exam Comments: General: Awake, alert, and fully oriented, doubled over in pain, writhing in bed Head: no signs of trauma Eyes: EOMI, sclera anicteric ENT: Moist mucus membranes, Neck: Normal ROM, supple Lungs: Lungs clear, Normal breath sounds Cardio: Regular rhythm, S1 and S2 present Abdomen: Tender to palpation diffusely especially on LLQ with guarding, soft, bowel sounds present in all four quadrants, no rebound or masses; hyperactive bowel sounds Extremities: Normal range of motion, Distal pulses present SKIN: Warm, Dry, normal turgor Neurologic: Cranial nerves II through XII grossly intact. Normal speech ED Treatment Course - LABORATORY CBC & Chemistry Diagram: 08/02/18 14:24 08/02/18 14:24 - ADDITIONAL ORDERS Additional order review: Laboratory Results 08/02/18 14:24 Sodium 142 Potassium 4.8 Chloride 110 H Carbon Dioxide 32 Anion Gap 0 L BUN 15 Creatinine 0.6 Creat Clearance w eGFR > 60 Random Glucose 104 Calcium 9.1 Magnesium 2.0 Total Bilirubin 0.2 AST 28 ALT 24 Alkaline Phosphatase 64 Total Protein 6.6 Albumin 3.3 L Lipase 89 08/02/18 14:24 RBC 3.70 MCV 97.1 H MCHC 33.4 RDW 15.0 MPV 8.2 Neutrophils % 56.7 Lymphocytes % 31.4 Monocytes % 7.5 Eosinophils % 3.9 Basophils % 0.5 - Medications Given in the ED: ED Medications Discontinued Medications Generic Name Dose Route Start Last Admin Trade Name Freq PRN Reason Stop Dose Admin Morphine Sulfate 2 mg 08/02/18 15:09 08/02/18 15:22 Morphine Injection - IVPUSH 08/02/18 15:10 2 mg ONCE ONE Administration Ondansetron HCl 4 mg 08/02/18 15:09 08/02/18 15:23 Zofran Injection IVPUSH 08/02/18 15:10 4 mg ONCE ONE Administration Medical Decision Making - Medical Decision Making 47yo F with PMH of seizures not well-controlled (last seizure about a month ago) , bipolar disorder, polysubstance abuse (last used PCP a couple days ago), HTN, COPD, GERD presenting with abdominal pain. -DDX includes but not limited to kidney stone, gastritis, pancreatitis, hepatitis, bowel obstruction, gallstones, pyelonephritis, ovarian torsion. -Labs: WBC 89, WBC 5.9, AST 25, ALT 24, pending UA/UCx -CT abdomen/pelvis with oral and IV contrast -Morphine, zofran, pepcid, maalox -Patient reports pain is somewhat alleviated, now /. Appears more comfortable. Now laying back in bed. -Observed crying. Said her friend left with her phone and asking if she can leave to smoke a cigarette. Patient advised to stay in the ED. -IV blew. Several attempts made to insert another IV. -Patient signed out to Dr. Starr 08/02/18 18:59 *DC/Admit/Observation/Transfer Diagnosis at time of Disposition: Abdominal pain - Referrals - Patient Instructions - Post Discharge Activity
--- NOTE | 2018-08-02 15:41 | PDOC ---
Attending Attestation - HPI HPI: 08/02/18 15:53 The patient is a 47-year-old female with past medical history significant for HTN, COPD, and polysubstance abuse presents to the emergency department with abdominal pain. The patient presents with constant abdominal pain thats been gradually increasing in severity over the last several months. Per patient, she reports associated symptoms of occasional hematochezia and bloody-bilious emesis. - Medical Decision Making 08/02/18 15:53 Documentation prepared by Rosalind Nolasco, acting as medical policy specialist for Bryce Boyd MD. <Rosalind Nolasco - Last Filed: 08/02/18 15:53> - Resident Resident Name: Coty Reyes - ED Attending Attestation I have performed the following: I have examined & evaluated the patient, The case was reviewed & discussed with the resident, I agree w/resident's findings & plan, Exceptions are as noted - Physicial Exam PE: 08/02/18 16:36 Patient is awake and alert, cachectic appearing, writhing in pain Normocephalic and atraumatic PERRLA, EOMI, no scleral icterus mm-dry cta rrr Abdomen is soft, nondistended, diffuse tenderness is noted without guarding or rebound, bowel sounds are hyperactive; - Medical Decision Making 08/02/18 16:36 47-year-old female with history of drug use presents to the ER with diffuse abdominal pain that has persisted for several months but has increased in severity with a past 2 days. Patient is writhing in pain. Patient was seen earlier at [facility] where she states nothing was done promptly discharged. We'll obtain CBC/CMP/lipase. We'll administer pain meds, H2 blockers and antiemetics. Will obtain a chest x-ray to rule out free air under the diaphragm. Will consider CT of abdomen and pelvis with by mouth and IV contrast. Will reassess. <Bryce Boyd - Last Filed: 08/02/18 16:37>
[2018-08-02] MEDS ORDERED: FAMOTIDINE 20 MG/50 ML IVPB 20 MG/50 ML MG IVPB ONE ×2 (15:56→16:18)
[2018-08-02] MEDS ORDERED: MAG HYDROX/AL HYDROX/SIMETH -MYLANTA- ORAL SUSPENSION PO ONE (15:56)
[2018-08-02] MEDS ORDERED: morphine CARPU-JECT 4 MG/1 ML DISP.SYRIN IVPUSH ONE ×2 (15:56→16:19)
[2018-08-02] MEDS ORDERED: MAG HYDROX/AL HYDROX/SIMETH 30 ML UNIT-DOSE CUP ONE (16:18)
[2018-08-02] MEDS ORDERED: morphine SULFATE 4 MG/ML VIAL ONE (16:18)
[2018-08-02] MEDS ORDERED: POLYETHYLENE GLYCOL 3350 119 GM BTL PO ONE (20:07)
--- NOTE | 2018-08-02 20:35 | PDOC ---
*Physical Exam - Vital Signs Last Vital Signs Temp Pulse Resp BP Pulse Ox 98.7 F 96 H 16 119/86 99 08/02/18 13:24 08/02/18 13:24 08/02/18 13:24 08/02/18 13:24 08/02/18 13:24 - Physical Exam Comments: 08/02/18 21:00 General Appearance: Nourished. No Apparent Distress HEENT: No Pharyngeal Erythema, Tonsillar Exudate, Tonsillar Erythema Neck: No Cervical Lymphadenopathy Respiratory/Chest: Lungs Clear, Normal Breath Sounds. No Crackles, Rales, Rhonchi, Wheezing Cardiovascular: Regular Rhythm, Regular Rate. No Murmur, Gallops, Rubs Gastrointestinal/Abdominal: Normal Bowel Sounds, Soft. No Guarding, Rebound, Tenderness Musculoskeletal: No CVA Tenderness Extremity: Normal Capillary Refill Integumentary: Normal Color, Dry, Warm Neurologic: Fully Oriented, Alert, Normal Mood/Affect, Normal Response, ED Treatment Course - LABORATORY CBC & Chemistry Diagram: 08/02/18 14:24 08/02/18 14:24 - ADDITIONAL ORDERS Additional order review: Laboratory Results 08/02/18 14:24 Sodium 142 Potassium 4.8 Chloride 110 H Carbon Dioxide 32 Anion Gap 0 L BUN 15 Creatinine 0.6 Creat Clearance w eGFR > 60 Random Glucose 104 Calcium 9.1 Magnesium 2.0 Total Bilirubin 0.2 AST 28 ALT 24 Alkaline Phosphatase 64 Total Protein 6.6 Albumin 3.3 L Lipase 89 Beta HCG, Quant < 1.0 08/02/18 14:24 RBC 3.70 MCV 97.1 H MCHC 33.4 RDW 15.0 MPV 8.2 Neutrophils % 56.7 Lymphocytes % 31.4 Monocytes % 7.5 Eosinophils % 3.9 Basophils % 0.5 - Medications Given in the ED: ED Medications Discontinued Medications Generic Name Dose Route Start Last Admin Trade Name Freq PRN Reason Stop Dose Admin Al Hydroxide/Mg Hydroxide 30 ml 08/02/18 15:56 08/02/18 16:30 Mylanta Suspension - PO 08/02/18 15:57 30 ml ONCE ONE Administration Sodium Chloride 1,000 mls @ 1,000 mls/hr 08/02/18 15:09 08/02/18 15:23 Normal Saline - IV 08/02/18 16:08 1,000 mls/hr ASDIR STA Administration Famotidine/Sodium Chloride 20 mg in 50 mls @ 100 mls/hr 08/02/18 15:56 16:30 Pepcid 20 Mg Premixed Ivpb - IVPB 08/02/18 16:25 100 mls/hr ONCE ONE Administration Morphine Sulfate 2 mg 08/02/18 15:09 08/02/18 15:22 Morphine Injection - IVPUSH 08/02/18 15:10 2 mg ONCE ONE Administration Morphine Sulfate 3 mg 08/02/18 15:56 08/02/18 16:31 Morphine Injection - IVPUSH 08/02/18 15:57 Not Given ONCE ONE Morphine Sulfate 4 mg 08/02/18 16:19 08/02/18 16:30 Morphine Injection - IVPUSH 08/02/18 16:20 4 mg ONCE ONE Administration Ondansetron HCl 4 mg 08/02/18 15:09 08/02/18 15:23 Zofran Injection IVPUSH 08/02/18 15:10 4 mg ONCE ONE Administration Polyethylene Glycol 17 gm 08/02/18 20:07 08/02/18 20:27 Miralax (For Daily Use) - PO 08/02/18 20:08 17 grams ONCE ONE Administration Progress Note - Progress Note Progress Note: The patient is a 47 year old female with a history of substance abuse who presents for evaluation of abdominal pain. Work up has been negative thus far. The patient is pending a CT abdomen/pelvis and reassessment. Medical Decision Making - Medical Decision Making 08/02/18 21:01 CT abdomen/pelvis demonstrates moderate fecal load within the intestine but otherwise unremarkable as read by our radiologist. The patient's results are consistent with constipation and narcotics are likely to worsen the patient's symptoms. We treated the patient with miralax here in the ED with some improvement in her symptoms. We are comfortable discharging the patient home with GI follow up on miralax and colace. We discussed the results, plan, and return precautions with the patient who voiced understanding and is agreeable with the plan. *DC/Admit/Observation/Transfer Diagnosis at time of Disposition: Abdominal pain Qualifiers: Abdominal location: unspecified location Qualified Code(s): R10.9 - Unspecified abdominal pain - Discharge Dispostion Disposition: HOME Condition at time of disposition: Stable Decision to Admit order: No - Prescriptions Prescriptions: Docusate Sodium [Colace -] 100 mg PO DAILY #30 capsule Polyethylene Glycol 3350 [Miralax (For Daily Use) -] 17 gm PO DAILY #1 bottle - Referrals Referrals: Alden Landeros MD [Staff Physician] - - Patient Instructions Printed Discharge Instructions: DI for Constipation Additional Instructions: Please return to the ER if you experience concerning or worsening symptoms including worsening difficulty breathing, weakness, or chest pain. Your lab results were normal here in the ER. Your CT scan shows that you are constipated. We have sent a prescription to your pharmacy for medication to help with your constipation that you should take as directed. Please call to schedule a follow up appointment with our GI specialist Dr. Landeros within 2-3 days to discuss your ER visit and further management of your symptoms. - Post Discharge Activity
--- NOTE | 2018-08-03 12:12 | EKG ---
Test Reason : Blood Pressure : / mmHG Vent. Rate : 089 BPM Atrial Rate : 089 BPM P-R Int : 180 ms QRS Dur : 066 ms QT Int : 372 ms P-R-T Axes : 080 058 044 degrees QTc Int : 452 ms POOR DATA QUALITY, INTERPRETATION MAY BE ADVERSELY AFFECTED NORMAL SINUS RHYTHM SEPTAL INFARCT (CITED ON OR BEFORE 09-MAR-2017) ABNORMAL ECG WHEN COMPARED WITH ECG OF 13-APR-2017 07:05, QUESTIONABLE CHANGE IN INITIAL [employer] Confirmed by ELKE OLMEDO MD ([id number]) on 08/03/2018 12:11:45 PM Referred By: Confirmed By:ELKE OLMEDO MD
== END 2018-08-02 21:18 | disposition home or self-care (01) ==
LOC: JER 13:16
PROC: 3E033NZ Introduction of Analgesics, Hypnotics, Sedatives into Peripheral Vein, Percutaneous Approach (ICD-10-PCS; principal; 2018-08-02)
PROC: 3E033GC Introduction of Other Therapeutic Substance into Peripheral Vein, Percutaneous Approach (ICD-10-PCS; 2018-08-02)
PROC: 3E0337Z Introduction of Electrolytic and Water Balance Substance into Peripheral Vein, Percutaneous Approach (ICD-10-PCS; 2018-08-02)
DX: R10.9 Unspecified abdominal pain (principal)
CPT/HCPCS: 36415; 71046-TC-FY; 74177-TC; 80053; 83690; 83735; 84702; 85025; 93005; 93010; 99283-25; J7030

== ENCOUNTER 2018-08-10 16:12 | Emergency (ER) | payer MEDICARE, OTHER ==
[2018-08-10 16:30] VITALS: BP 144/97; PULSE 96; TEMP 98.5; BMI 27.4
[2018-08-10] MEDS ORDERED: SODIUM CHLORIDE 1,000 ML IV STA (16:52)
[2018-08-10] MEDS ORDERED: ACETAMINOPHEN 500 MG TABLET (FP) PO ONE ×2 (16:52→21:37)
--- NOTE | 2018-08-10 16:53 | PDOC ---
History of Present Illness - General Chief Complaint: Seizure Stated Complaint: SEIZURE Time Seen by Provider: 08/10/18 16:15 History Source: Patient, EMS Exam Limitations: Other (not responding to commands) - History of Present Illness Initial Comments: 08/10/18 16:56 *Pt is a poor historian, would not respond to most questions and/or could not remember Pt is a 47yo f with PMH of seizures, substance use disorder, HTN, COPD, GERD BIBA for having seizures. Per EMS, pt was at [address] [place] [address] when she had seizure like activity. She had post-ictal confusion and would not respond to questioning. Pt stated that she took a taxi to [address] [place] [address] to see a doctor for follow up at around 2:30pm and then she came to the hospital. She does not remember what happened between 2:30 and being evaluated in the ED (almost 2 1/2 hours). Pt does not know why she is in the ED and does not know what the follow up appointment was for. Pt says he takes Dilantin for her seizures and other medications but does not know the names. She states that she took her meds this morning. Pt says she has not used illicit drugs for "a while". Denies IV drug use. She admits to headache. Past History - Past Medical History Allergies/Adverse Reactions: Allergies Allergy/AdvReac Type Severity Reaction Status Date / Time latex Allergy Intermediate Hives Verified 08/10/18 16:29 penicillin G Allergy Intermediate Hives Verified 08/10/18 16:29 sulfamethoxazole Allergy Intermediate Hives Verified 08/10/18 16:29 [From Bactrim] tomato [Tomato] Allergy Intermediate Swelling Verified 08/10/18 16:29 trimethoprim [From Bactrim] Allergy Intermediate Hives Verified 08/10/18 16:29 Unclassified Drug Allergy Intermediate HIVES---NUT Verified 08/10/18 16:29 S aspirin Allergy Unknown Verified 08/10/18 16:29 Home Medications: Ambulatory Orders Budesonide/Formeterol Fumarate [SYMBICORT 160/4.5mcg -] 1 inh PO BID 03/09/17 Montelukast Na [Singulair -] 10 mg PO HS 03/09/17 Divalproex Sodium [Depakote] 500 mg PO BID #120 tablet. 03/13/17 Lamotrigine [LaMICtal -] 100 mg PO DAILY #30 tablet 03/13/17 Albuterol Sulfate Inhaler - [Ventolin HFA Inhaler -] 2 inh PO Q4H PRN 04/06/17 Cetirizine HCl [Zyrtec -] 10 mg PO DAILY PRN 04/06/17 Folic Acid - 1 mg PO DAILY 04/06/17 Hydrochlorothiazide 25 mg PO DAILY 04/06/17 Ibuprofen [Motrin -] 600 mg PO BID PRN 04/06/17 Lidocaine 5% Top. Ointment [Xylocaine 5% Top. Ointment -] 1 applic TP PRN PRN Phenytoin Na Extended [Dilantin -] 100 mg PO TID 04/06/17 Nicotine Patch [Nicoderm Patch -] 7 mg TD HS patch 04/14/17 Nicotine Polacrilex [Nicorelief -] 2 mg BUC Q2H PRN #0 gum 04/14/17 Quetiapine Fumarate [Seroquel -] 50 mg PO HS #30 tablet 04/15/17 Divalproex Sodium [Depakote] 500 mg PO BID #120 tablet. MDD 1000 mg 04/18/17 Gabapentin [Neurontin -] 800 mg PO Q8H #120 cap 04/18/17 Lamotrigine [LaMICtal -] 100 mg PO DAILY #30 tablet 04/18/17 Docusate Sodium [Colace -] 100 mg PO DAILY #30 capsule 08/02/18 Polyethylene Glycol 3350 [Miralax (For Daily Use) -] 17 gm PO DAILY #1 bottle Anemia: No Asthma: Yes Cancer: No Cardiac Disorders: No CVA: No COPD: Yes CHF: No Dementia: No Diabetes: No GI Disorders: No Disorders: No HTN: Yes (ON MEDS.) Hypercholesterolemia: No Kidney Stones: No Seizures: Yes (ON MEDICATION) Thyroid Disease: No - Surgical History Neurologic Surgery: No - Reproductive History PID: No - Immunization History Immunization Up to Date: No - Suicide/Smoking/Psychosocial Hx Smoking Status: Yes Smoking History: Never smoked Have you smoked in the past 12 months: No Number of Cigarettes Smoked Daily: 15 Information on smoking cessation initiated: No 'Breaking Loose' booklet given: 04/13/17 Hx Alcohol Use: No Drug/Substance Use Hx: No Substance Use Type: Alcohol Hx Substance Use Treatment: Yes (multiple inpatinet/outpatient rehabs and detox) Review of Systems - Review of Systems Able to Perform ROS?: No (Pt not answering. ) Neurological: Yes: Headache *Physical Exam - Vital Signs Last Vital Signs Temp Pulse Resp BP Pulse Ox 98.5 F 96 H 16 144/97 100 08/10/18 16:15 08/10/18 16:15 08/10/18 16:15 08/10/18 16:15 08/10/18 16:15 - Physical Exam General Appearance: Yes: Appropriately Dressed, Thin, Other (pt sleeping and not responding to commands). No: Apparent Distress HEENT: positive: EOMI (scleral erythema), Other Neck: positive: Trachea midline, Supple. negative: Lymphadenopathy (R), Lymphadenopathy (L) Respiratory/Chest: positive: Lungs Clear, Normal Breath Sounds. negative: Decreased Breath Sounds, Crackles, Rales, Rhonchi, Stridor, Wheezing Cardiovascular: positive: Regular Rhythm, Regular Rate, S1, S2. negative: Edema , JVD, Murmur Vascular Pulses: Carotid (R): 2+, Carotid (L): 2+, Dorsalis-Pedis (R): 2+, Doralis-Pedis (L): 2+ Gastrointestinal/Abdominal: positive: Normal Bowel Sounds, Soft. negative: Distended, Guarding, Tenderness Musculoskeletal: negative: CVA Tenderness Extremity: positive: Normal Capillary Refill Integumentary: positive: Normal Color, Dry, Warm Neurologic: positive: nuclear design engineer II-XII NML intact, Motor Strength 5/5, Respond to painful stimul, Other (protected face with hand drop). negative: Fully Oriented , Alert, Normal Mood/Affect ED Treatment Course - LABORATORY CBC & Chemistry Diagram: 08/10/18 18:00 08/10/18 18:00 Medical Decision Making - Medical Decision Making 08/10/18 17:02 47yo f with PMH of seizures, substance use disorder BIBA for seizures. Vitals: wnl PE: benign Pt alert but not responding to commands and questioning. exam and ROS limited. Per records, pt takes dilantin, depakote and lamictal for seizures, will draw levels. cbc, cmp, lactate, ua, upreg also ordered. Will give ivf and Tylenol for headaches. Pt not providing urine sample. Low phenytoin levels, normal valproic acid levels. Upon discharge, pt opened eyes and bilateral scleral erythema noted. Pt given Cipro eyedrops. Pt follow up with Dr. Mckinney and Dr. Mendez. PT agreed to plan for dc home. Given Motrin for back pain. 08/11/18 03:11 *DC/Admit/Observation/Transfer Diagnosis at time of Disposition: Seizure disorder - Discharge Dispostion Disposition: HOME Condition at time of disposition: Good Decision to Admit order: No - Referrals Referrals: Debby Chester MD [Staff Physician] - Crista Shukla MD [Staff Physician] - - Patient Instructions Printed Discharge Instructions: DI for Seizure Disorder -- Adult Additional Instructions: You were seen here today because you were having seizures. Your tests were normal. Please take your medications daily as directed, especially your medications for seizures. You have an eye infection. You have been given eye drops. Apply 1-2 drops in each eye every 2 hours while you are awake for [address] 1-2 drops in each eye every 4 hours while awake for the next 5 days. Keep your appointment with your doctors. Come back to the emergency room if: your seizures continue, you lose consciousness, you hit your head, or if any new concerning symptom develops. Thank you - Post Discharge Activity
--- NOTE | 2018-08-10 17:14 | PDOC ---
Attending Attestation - HPI HPI: 08/10/18 18:16 The patient is a 46 year old female, with a significant past medical history of seizures, hypertension, asthma , COPD, GERD, fibromyalgia, bipolar disorder, polysubstance abuse(heroin) who presents to the emergency department from [facility] with seizure today. The patient is unable to give details of the event. As per EMS, the patient was having a self-limited generalized seizure and was given 2 mg of Ativan while in route to the ED. Allergies: Latex, Penicillin G, Sulfamethoxazole (from Bactrim), trimethoprim ( from Bactrim), aspirin, unclassified drug, tomato Past Surgical History: None reported Social History: Current everyday smoker. PCP and Heroin abuse. No ETOH use. Neurologist: Dr. Osborne - Physicial Exam PE: 08/10/18 18:17 GENERAL:+ Eyes closed, grimacing face HEAD: No signs of trauma EYES: PERRLA, EOMI, sclera anicteric, conjunctiva clear ENT: Auricles normal inspection, hearing grossly normal, nares patent, oropharynx clear without exudates. Moist mucosa NECK: Normal ROM, supple, no lymphadenopathy, JVD, or masses LUNGS: Breath sounds equal, clear to auscultation bilaterally. No wheezes, and no crackles HEART: Regular rate and rhythm, normal S1 and S2, no murmurs, rubs or gallops ABDOMEN: Soft, nontender, normoactive bowel sounds. No guarding, no rebound. No masses EXTREMITIES: Normal range of motion, no edema. No clubbing or cyanosis. No cords, erythema, or tenderness NEUROLOGICAL: + Eyes are pinched closed, patient is resisting opening eyes on exam. When dropping hand, she protects her face against gravity. Otherwise not following commands and refusing to speak. Per resident exam, patient was awake, alert, and answering most questions. SKIN: Warm, Dry, normal turgor, no rashes or lesions noted <Catherine Queen - Last Filed: 08/10/18 18:16> - Resident Resident Name: Bertha Hagen - ED Attending Attestation I have performed the following: I have examined & evaluated the patient, The case was reviewed & discussed with the resident, I agree w/resident's findings & plan, Exceptions are as noted - Medical Decision Making 08/10/18 18:25 47 yo F with h/o seizure disorder, polysubstance abuse, multiple visits for seizures here for seizur like activity while at [facility] for followup. pt is stating she does not know what happened, suddenly awoke here at [facility]. no current complaints. only c/o mild headache. on my exam, pt with pinched eyes shut, resisting eye opening. avoiding face when drops hand to gravity. not answer quesitons or following commands. differential seizure, vs. pseudoseizure, substance intox, electrolyte abnormality, plan labs tox ekg. iv hydration drug levels. reassess <Cheri Bhat - Last Filed: 08/10/18 18:26> Attestations - Attestations 08/10/18 18:17 Documentation prepared by Catherine Queen, acting as medical record consultant for Cheri Bhat MD. <Catherine Queen - Last Filed: 08/10/18 18:16>
[2018-08-10] MEDS ORDERED: ACETAMINOPHEN 325 MG TABLET (FP) ONE (17:29)
[2018-08-10 18:47] LABS: BASO % 0.4 % (0-2.0); EOS % 0.6 % (0-4.5); HEMATOCRIT 35.6 % (32.4-45.2); HEMOGLOBIN 11.9 GM/dL (10.7-15.3); LYMPH % 26.5 % (8-40); MCH 32.5 pg (25.7-33.7); MCHC 33.5 g/dl (32.0-36.0); MEAN CELL VOLUME 96.9 fl (80-96); MEAN PLT VOLUME 8.1 fl (7.5-11.1); MONO % 6.8 % (3.8-10.2); NEUT % 65.7 % (42.8-82.8); PLATELET COUNT 270 K/MM3 (134-434); RBC 3.67 M/mm3 (3.60-5.2); RDW 14.9 % (11.6-15.6); WHITE BLOOD COUNT 9.5 K/mm3 (4.0-10.0)
[2018-08-10 18:55] LABS: PHENYTOIN (DILANTIN) 3.5 ug/ml (10.0-20.0); VALPROIC ACID DEPAKOTE DEPAKAN 52.8 ug/ml (50-100)
[2018-08-10 18:56] LABS: ALBUMIN 3.2 g/dl (3.4-5.0); ALK PHOS 58 U/L (45-117); ANION GAP 5 MMOL/L (8-16); BILIRUBIN,TOTAL 0.3 mg/dL (0.2-1); BLOOD UREA NITROGEN 11 mg/dL (7-18); CHLORIDE 106 mmol/L (98-107); CO2 33 mmol/L (21-32); CREATININE 0.8 mg/dL (0.55-1.3); GLUCOSE,RANDOM 72 mg/dL (74-106); POTASSIUM 3.7 mmol/L (3.5-5.1); SGOT/AST 27 U/L (15-37); SGPT/ALT 35 U/L (13-61); SODIUM 144 mmol/L (136-145); TOT PROT 6.5 g/dl (6.4-8.2)
[2018-08-11] MEDS ORDERED: CIPROFLOXACIN 0.3% EYE DROPS 5 ML BOTTLE OU ONE (00:04)
[2018-08-11] MEDS ORDERED: CIPROFLOXACIN HCL 0.3% OPHTH 2.5ML BOTTLE ONE (01:09)
== END 2018-08-11 01:32 | disposition home or self-care (01) ==
LOC: JER 16:12
PROC: 3E0337Z Introduction of Electrolytic and Water Balance Substance into Peripheral Vein, Percutaneous Approach (ICD-10-PCS; principal; 2018-08-10)
DX: G40.909 Epilepsy, unspecified, not intractable, without status epilepticus (principal); I10 Essential (primary) hypertension; J44.9 Chronic obstructive pulmonary disease, unspecified; J45.909 Unspecified asthma, uncomplicated; K21.9 Gastro-esophageal reflux disease without esophagitis; F31.9 Bipolar disorder, unspecified; M79.7 Fibromyalgia; F11.10 Opioid abuse, uncomplicated
CPT/HCPCS: 36415; 80053; 80164; 80185; 83605; 85025; 99281-25; J7030

== ENCOUNTER 2019-06-08 11:40 | Emergency (ER) | payer MEDICARE, OTHER ==
[2019-06-08 11:47] VITALS: BP 126/91; PULSE 104; TEMP 98.5; BMI 20.5
[2019-06-08] MEDS ORDERED: FAMOTIDINE 20 MG/50 ML IVPB 20 MG/50 ML MG IVPB ONE ×2 (12:01→12:21)
[2019-06-08] MEDS ORDERED: methylPREDNISolone NA SUCC 125 MG/2 ML VIAL ONE (12:01)
--- NOTE | 2019-06-08 12:17 | PDOC ---
Attending Attestation - Resident Resident Name: Jose Hurst - ED Attending Attestation I have performed the following: I have examined & evaluated the patient, The case was reviewed & discussed with the resident, I agree w/resident's findings & plan, Exceptions are as noted - HPI HPI: 06/08/19 12:15 48y F hx of
[2019-06-08] MEDS ORDERED: methylPREDNISolone NA SUCC 125 MG/2 ML VIAL IVPUSH ONE (12:20)
--- NOTE | 2019-06-08 12:22 | PDOC ---
History of Present Illness - General Chief Complaint: Allergic Reaction Stated Complaint: ALLERGIC REACTION Time Seen by Provider: 06/08/19 12:13 History Source: Patient Exam Limitations: No Limitations - History of Present Illness Initial Comments: 06/09/19 23:25 48 yo F pmh multsubstance abuse, copd, asthma, bpd, h/o seizure presenting with diffuse body itching, throat itching, hoarseness, and mild sob. "has many allergies to medications, foods, and the environment" but would not specify which ones. Symptoms started in a doctor's office earlier this AM, pt injected epi-pen. Denies GI involvement: no n/v/d/abd pain. Limited hx due to minimal pt cooperation. Past History - Past Medical History Allergies/Adverse Reactions: Allergies Allergy/AdvReac Type Severity Reaction Status Date / Time latex Allergy Intermediate Hives Verified 06/08/19 11:44 penicillin G Allergy Intermediate Hives Verified 06/08/19 11:44 sulfamethoxazole Allergy Intermediate Hives Verified 06/08/19 11:44 [From Bactrim] tomato [Tomato] Allergy Intermediate Swelling Verified 06/08/19 11:44 trimethoprim [From Bactrim] Allergy Intermediate Hives Verified 06/08/19 11:44 Unclassified Drug Allergy Intermediate HIVES---NUT Verified 06/08/19 11:44 S aspirin Allergy Unknown Verified 06/08/19 11:44 Home Medications: Ambulatory Orders Budesonide/Formeterol Fumarate [SYMBICORT 160/4.5mcg -] 1 inh PO BID 03/09/17 Montelukast Na [Singulair -] 10 mg PO HS 03/09/17 Lamotrigine [LaMICtal -] 100 mg PO DAILY #30 tablet 03/13/17 Albuterol Sulfate Inhaler - [Ventolin HFA Inhaler -] 2 inh PO Q4H PRN 04/06/17 Cetirizine HCl [Zyrtec -] 10 mg PO DAILY PRN 04/06/17 Folic Acid - 1 mg PO DAILY 04/06/17 Hydrochlorothiazide 25 mg PO DAILY 04/06/17 Ibuprofen [Motrin -] 600 mg PO BID PRN 04/06/17 Lidocaine 5% Top. Ointment [Xylocaine 5% Top. Ointment -] 1 applic TP PRN PRN Phenytoin Na Extended [Dilantin -] 100 mg PO TID 04/06/17 Nicotine Patch [Nicoderm Patch -] 7 mg TD HS patch 04/14/17 Nicotine Polacrilex [Nicorelief -] 2 mg BUC Q2H PRN #0 gum 04/14/17 Quetiapine Fumarate [Seroquel -] 50 mg PO HS #30 tablet 04/15/17 Divalproex Sodium [Depakote] 500 mg PO BID #120 tablet. MDD 1000 mg 04/18/17 Gabapentin [Neurontin -] 800 mg PO Q8H #120 cap 04/18/17 Lamotrigine [LaMICtal -] 100 mg PO DAILY #30 tablet 04/18/17 Docusate Sodium [Colace -] 100 mg PO DAILY #30 capsule 08/02/18 Polyethylene Glycol 3350 [Miralax (For Daily Use) -] 17 gm PO DAILY #1 bottle Anemia: No Asthma: Yes Cancer: No Cardiac Disorders: No CVA: No COPD: Yes CHF: No Dementia: No Diabetes: No GI Disorders: No Disorders: No HTN: Yes (ON MEDS.) Hypercholesterolemia: No Kidney Stones: No Seizures: Yes (ON MEDICATION) Thyroid Disease: No - Surgical History Neurologic Surgery: No - Reproductive History PID: No - Immunization History Immunization Up to Date: No - Suicide/Smoking/Psychosocial Hx Smoking Status: Yes Smoking History: Never smoked Have you smoked in the past 12 months: No Number of Cigarettes Smoked Daily: 15 Information on smoking cessation initiated: No 'Breaking Loose' booklet given: 04/13/17 Hx Alcohol Use: No Drug/Substance Use Hx: No Substance Use Type: Alcohol Hx Substance Use Treatment: Yes (multiple inpatinet/outpatient rehabs and detox) Review of Systems - Review of Systems Able to Perform ROS?: No (see hpi ) *Physical Exam - Vital Signs Last Vital Signs Temp Pulse Resp BP Pulse Ox 98.5 F 104 H 18 126/91 99 06/08/19 11:44 06/08/19 11:44 06/08/19 11:44 06/08/19 11:44 06/08/19 11:44 - Physical Exam Comments: 06/09/19 23:25 GEN: Anxious, minimally cooperative. HEENT: NC/AT, EOMI, PERRLA, CN II-XII intact. Moist mucous membranes. No swelling or angioedemia of the orophyarnx. CV: Tachycardic, S1/S2, no mrg LUNG: Nonlabored breathing on room air, saturating 100%. faint wheezes, no wheezes, crackles GI: soft, ndnt, +BS, no guarding, no rebound. EXTREMITIES: 2+ distal pulses. No LE edema. No obvious deformities of all extremities. Medical Decision Making - Medical Decision Making 06/08/19 12:16 48 yo F presenting with itching, mild SOB, and voice hoarseness; stating allergic reaction of unknown cause. Patient gave herself a dose of epi. Faint wheezing on exam, no airway compromise, no angioedema or swelling of the oropharynx. - bendaryl, steroids, PPI/H2 block - reassess 06/08/19 14:04 Went to reassess patient at approximately 13:30 and patient was not in room 06/08/19 14:10 Looked for patient additional times and she was nowhere to be found. Pt eloped. *DC/Admit/Observation/Transfer Diagnosis at time of Disposition: Eloped from emergency department - Discharge Dispostion Disposition: ELOPED - Referrals Referrals: Debby Chester MD [Primary Care Provider] - - Patient Instructions - Post Discharge Activity
--- NOTE | 2019-06-08 12:23 | PDOC ---
Documentation entered by Srini Schmitz SCRIBE, acting as scribe for Mario Christina MD. Mario Christina MD: This documentation has been prepared by the josesitoeNadir Elijah, SCRIBE, under my direction and personally reviewed by me in its entirety. I confirm that the documentation accurately reflects all work, treatment, procedures, and medical decision making performed by me. Attending Attestation - Resident Resident Name: Jose Hurst - ED Attending Attestation I have performed the following: I have examined & evaluated the patient, The case was reviewed & discussed with the resident, I agree w/resident's findings & plan - HPI HPI: 06/08/19 12:15 Patient is a 48 year old female with a significant past medical history of hypertension, asthma , COPD, GERD, fibromyalgia, bipolar disorder, polysubstance abuse (heroin) who presents to the ED with itching. Patient reports that she walked into her PCP's office and immedietly began to start itching all over her body. Patient associates itchy eyes, hoarse throat and some SOB. Patient took an Epipen which did not alleviate her symptoms. Allergies: Latex, Penicillin G, Sulfamethoxazole (from Bactrim), trimethoprim ( from Bactrim), aspirin, unclassified drug, tomato PCP: Dr. Rosas Social History: Current everyday smoker. PCP and Heroin abuse. No ETOH use. Neurologist: Dr. Osborne - Physicial Exam PE: 06/08/19 12:20 GENERAL: The patient is awake, alert, and fully oriented, Nontoxic - in no acute distress. HEAD: Normocephalic, atraumatic. EYES: extraocular movements intact, sclera anicteric, conjunctiva clear. ENT: Normal voice, Moist mucous membranes, posterior pharynx clear without edema NECK: Normal range of motion, supple without lymphadenopathy, JVD, or masses, no stridor LUNGS: +Scattered Wheezing but speaking in Complete sentences in no respiratory distress No crackles, No rales. HEART: Regular rate and rhythm, normal S1 and S2 without murmur, rub or gallop. ABDOMEN: Soft, nontender, normoactive bowel sounds. No guarding, no rebound. No masses. EXTREMITIES: Normal range of motion, no edema. No clubbing or cyanosis. No cords, erythema, or tenderness. NEUROLOGICAL: No facial asymmetry, Normal speech, normal gait. PSYCH: Normal mood, normal affect. SKIN: Warm, Dry, normal turgor, scant urticarial lesions on extremities - Medical Decision Making 06/08/19 12:22 48y F hx of multiple medical and psychiatric problems presents with itching that started when she was at dr. morgan office. pt has mulitiple allergies but no known allergic trigger this morning. pt endorses itching everywhere. also endorses some sob. enies any cp, abd pain, n/v on exam pt with scattered wheezing no signs of respirotroy distress will give pepcid/maalox/benadryl pt gave herself an epipen shot prior to arrival will continue to observe supportive care 06/08/19 14:22 pt eloped, unable to find pt after searching for her throughout ED, restrooms, waiting room multiple times
== END 2019-06-08 13:27 | disposition left against medical advice (07) ==
LOC: JER 11:40
PROC: 3E033GC Introduction of Other Therapeutic Substance into Peripheral Vein, Percutaneous Approach (ICD-10-PCS; principal; 2019-06-08)
DX: L29.9 Pruritus, unspecified (principal); J44.9 Chronic obstructive pulmonary disease, unspecified; J45.909 Unspecified asthma, uncomplicated; I10 Essential (primary) hypertension
CPT/HCPCS: 96365; 96375; 99282-25

== ENCOUNTER 2020-07-28 04:21 | Day surgery (SDC) | payer MEDICARE, OTHER ==
--- OUTSIDE RECORDS SUMMARY | 2020-07-18 14:38 | XMS ---
:1970 Author Organization [facility] Care Team Providers Name Role Phone Roland Call MD Unavailable Unavailable Lakshmi Gomez Unavailable Unavailable [facility], CNR9 Unavailable Unavailable [facility] EMAD, EMAD Unavailable Unavailable AKWUBA, II Unavailable Unavailable Kadkhodaei-Elyaderani, Yimi Unavailable Unavailabl e [facility]CCC, HRHC9 Unavailable Unavailable Hu, Marilee Unavailable Unavailable ESPINOZA BRENNON, BRENNON Unavailable Unavailable Re-disclosure Warning The records that you are about to access may contain information from federally- assisted alcohol or drug abuse programs. If such information is present, then the following federally mandated warning applies: This information has been disclosed to you from records protected by federal confidentiality rules (42 CFR part 2). The federal rules prohibit you from making any further disclosure of this information unless further disclosure is expressly permitted by the written consent of the person to whom it pertains or as otherwise permitted by 42 CFR part 2. A general authorization for the release of medical or other information is NOT sufficient for this purpose. The Federal rules restrict any use of the information to criminally investigate or prosecute any alcohol or drug abuse patient.The records that you are about to access may contain highly sensitive health information, the redisclosure of which is protected by Article 27-F of the [facility] Public Health law. If you continue you may haveaccess to information: Regarding HIV / AIDS; Provided by facilities licensed or operated by the [facility] Office of Mental Health; or Provided by the [facility] Office for People With Developmental Disabilities. If such information is present, then the following [facility] mandated warning applies: This information has been disclosed to you from confidential records which are protected by state law. State law prohibits you from making any further disclosure of this information without the specific written consent of the person to whom it pertains, or as otherwise permitted by law. Any unauthorized further disclosure in violation of state law may result in a fine or long term sentence or both. A general authorization for the release of medical or other information is NOT sufficient authorization for further disclosure. Allergies and Adverse Reactions Type Description Substance Reaction Status Data Source(s) Drug allergy Bactrim Sulfamethoxazole hives Active eCW2 ( [place] 400 MG / [facility] Trimethoprim 80 MG Care) Oral Tablet [Bactrim] Drug allergy Latex Gloves Latex Gloves Anaphylaxis Active eCW2 ([facility]) Drug allergy Sulfa Sulfa HIVES Active eCW2 ([facility]) Drug allergy Penicillin Penicillin Anaphylaxis Active eCW2 ([facility]) Food allergy tomato tomato UNKNOWN [facility] Miscellaneous latex latex RASH [facility] Drug allergy trimethoprim trimethoprim [facility] Drug allergy sulfamethoxazole sulfamethoxazole [facility] Food allergy peanut peanut UNKNOWN [facility] Drug allergy Sulfa (Sulfonamide Sulfa (Sulfonamide [place] [facility]) Antibiotics) Hospital Drug allergy Penicillins Penicillins [facility] Drug allergy Sulfonylureas Sulfonylureas [facility] Drug allergy Macrobid Macrobid Localized Active [facility] Health swelling of System skin Drug allergy Cipro Cipro Unknown Active [facility] Drug allergy Peanut Peanut [facility] Drug allergy SULFA SULFA [facility] Drug allergy Penicillin G Penicillin G [facility] Drug allergy Bactrim Bactrim [facility] Drug allergy Bactrim Sulfamethoxazole / hives Active eCW3 ([facility]) Drug allergy Sulfa Drug allergy HIVES Active eCW3 ([facility]) Drug allergy Latex Gloves Drug allergy Anaphylaxis Active eCW3 ([facility]) Drug allergy Penicillin Drug allergy Anaphylaxis Active eCW3 ([facility]) Drug allergy AZITHROMYCIN Drug allergy hives Active eCW3 ([facility]) Drug allergy Sulfa Drug allergy HIVES Active eCW3 ([facility]) Drug allergy Penicillin Drug allergy Anaphylaxis Active eCW3 ([facility]) Drug allergy AZITHROMYCIN Drug allergy hives Active eCW3 ([facility]) No Information No Information No Information eC W2 ([facility]) No Information No Information No Information eC W2 ([facility]) No Information No Information No Information eC W2 ([facility]) Drug allergy sulfur topical Sulfur Topical Unknown Active [facility] Drug allergy penicillin Penicillin Unknown Active [facility] Encounters Encounter Providers Location Date Indications Data Source(s ) Outpatient Attender: BRENNON Hand 06/18/2020 [facility] 10:32:00 [facility] DANUTAAdmitter: EDT BRENNON DORAN DANUTAReferrer: II AKWUBA Outpatient Attender: [id number] [facility] 05/24/2020 [facility] ([facility] 11:38:[address] [facility] EDT Collaborative) Patient admitted. Outpatient Attender: [id number] [facility] 04/04/2020 02:43:25 PM [facility] ([facility] EDT Collaborative) Patient admitted. Outpatient Attender: [id number] [facility] 04/04/2020 02:43:22 PM [facility] ([facility] EDT Collaborative) Patient admitted. Outpatient Attender: [id number] [facility] 01/11/2020 06:27:16 AM [facility] ([facility] EDT Collaborative) Patient admitted. Outpatient Attender: [id number] [facility] 10/02/2019 03:48:16 PM [facility] ([facility]) Patient admitted. Outpatient Attender: [id number] [facility] 10/02/2019 03:48:13 PM [facility] ([facility]) Patient admitted. Outpatient 07/31/2019 12:05:52 PM EDT [facility] ([facility]) Patient admitted. Outpatient 07/31/2019 12:05:48 PM EDT [facility] ([facility]) Patient admitted. Outpatient Attender: BRENNON Hand 07/12/2019 [facility] Eliza nicole ESPINOZA 11:54:00 AM EDT Medical DANUTAAdmitter: [place] BRENNON ESPINOZA [facility]: NEFTALI LINDSAY Outpatient Attender: BRENNON Hand 06/21/2019 [facility] Eliza nicole ESPINOZA 02:40:00 PM EDT Medical DANUTAAdmitter: [place] BRENNON ESPINOZA CORNELLUTA Outpatient [place] 05/29/2019 eCW3 ([facility] 12:00:[address] [facility] A28 - 05/29/2019 Care) 12:00:00 AM EDT Inpatient Attender: [id number]-[id number] 05/26/2019 Post-ictal [facility] - [facility] Lakshmi 10:09:00 PM EDT confusion Jeremy MaryaadaAttender: - 05/28/2019 Hos pital Marilee HuAdmitter: 05:46:00 PM EDT Maclolmcharlesjoseph BevuvadaConsultant : Yimi Jeter i Post-ictal confusion Patient discharged. Outpatient 03/21/2019 01:53:43 PM EDT [facility] ([facility]) Patient admitted. Outpatient 03/21/2019 01:53:39 PM EDT [facility] ([facility]) Patient admitted. Outpatient 03/21/2019 01:53:28 PM EDT [facility] ([facility]) Patient admitted. Outpatient 03/21/2019 01:53:24 PM EDT [facility] ([facility]) Patient admitted. Outpatient 03/21/2019 01:52:34 PM EDT [facility] ([facility]) Patient admitted. Outpatient 03/21/2019 01:52:30 PM EDT [facility] ([facility]) Patient admitted. Emergency H 03/14/2019 09:20:00 PM EDT [facility] 03/14/2019 12:00:00 AM EDT - [facility] 02/12/2017 12:00:00 AM EDT Outpatient 03/08/2019 12:57:33 PM EDT [facility] ([facility]) Patient admitted. Outpatient 03/08/2019 12:57:29 PM EDT [facility] ([facility]) Patient admitted. Outpatient 03/06/2019 03:39:08 PM EDT [facility] ([facility]) Patient admitted. Outpatient 03/06/2019 03:39:02 PM EDT [facility] ([facility]) Patient admitted. Outpatient 03/06/2019 03:36:07 PM EDT [facility] ([facility] Care Collabor[facility]) Patient admitted. Outpatient 03/06/2019 03:36:03 PM EDT [facility] ([facility] Care Collaborative) Patient admitted. Outpatient [facility] 03/02/2019 eCW3 ([facility] A28 12:00:00 AM EDT [facility] - 03/02/2019 Care) 12:00:00 AM EDT [facility] 08/29/2018 eCW2 (Isabel Williamson [facility] 12:00:00 AM EST [facility]) [facility] 08/25/2018 eCW2 ([facility] 12:00:00 AM EDT [facility]) [facility] 08/25/2018 eCW2 ([facility]abel [facility] 12:00:00 AM EDT [facility]) [facility] 08/25/2018 eCW2 (Isabel Williamson [facility] 12:00:00 AM EDT [facility]) [facility] 08/14/2018 eCW2 (Isabel Williamson [facility] 12:00:00 AM EDT [facility]) [facility] 08/14/2018 eCW2 (Isabel [facility] 12:00:00 AM EDT [facility]) [facility] 08/10/2018 eCW2 ([facility]abel [facility] 12:00:00 AM [facility] 08/02/2018 eCW2 (Isabel Williamson [facility] 12:00:00 AM [facility] 08/02/2018 eCW2 (Isabel Williamson [facility] 12:00:00 AM [facility] 08/01/2018 eCW2 (Isabel Williamson [facility] 12:00:00 AM [facility] 07/25/2018 eCW2 (Isabel Williamson [facility] 12:00:00 AM ED[facility] 07/24/2018 eCW2 (Isabel Williamson [facility] 12:00:00 AM EDT [facility]) [facility] 07/24/2018 eCW2 (Isabel Williamson [facility] 12:00:00 AM ED[facility] 07/12/2018 eCW2 (Isabel Williamson [facility] 12:00:00 AM EDT [facility] 06/10/2018 eCW2 (Isabel Williamson [facility] 12:00:00 AM EDT [facility] 03/30/2018 eCW2 (Isabel Williamson [facility] 12:00:00 AM EDT [facility] 11/25/2017 eCW2 (Isabel Williamson [facility] 12:00:00 AM EST [facility] 10/31/2017 eCW2 (Isabel Williamson [facility] 12:00:00 AM EST [facility] 09/24/2017 [facility]00 AM [facility] (Chalo Valencia [facility] 12:00:00 AM EST [facility]) [facility] 09/14/2017 eCW2 (Chalo Valencia [facility] 12:00:00 AM EST [facility]) Emergency Attender: 05/04/2017 SEIZURE [place] Juan Jakub 12:25:00 PM EDT Hospit al - 05/04/2017 ARR-YONG 03:33:00 PM EDT SEIZURE ARR-YONG [facility] Erik Dugantimothy Vinson 02/14/2017 12:00: 00 eCW2 ([facility] AM EDT Health Care ) [facility] Williamsonjayashree Quinteroju Vinson 11/11/2016 12:00: 00 eCW2 ([facility] AM EST Health Care ) [facility] Erik Quinterolyn Shellabatasia 06/07/2016 12:00: 00 eCW2 ([facility] AM EDT Health Care ) [facility] Williamsonjayashree Quinteroju Valdesabatasia 05/21/2016 12:00: 00 eCW2 ([facility] AM EDT Health Care ) [facility] Williamsonjayashree Quinterolyn Shellabatasia 05/21/2016 12:00: 00 eCW2 ([facility] AM EDT Health Care ) [facility] Williamsonjayashree Quinterolyn Shellabarnaun 05/14/2016 12:00: 00 eCW2 ([facility] AM EDT Health Care ) [facility] Williamsonjayashree Quinterolyn Shellabarnaun 05/12/2016 12:00: 00 eCW2 ([facility] AM EDT Health Care ) [facility] Williamsonjayashree Quinterolyn Shellabarnaun 05/07/2016 12:00: 00 eCW2 ([facility] AM EDT Health Care ) [facility] Williamsonjayashree Quinterolyn Shellabatasia 05/06/2016 12:00: 00 eCW2 ([facility] AM EDT Health Care ) Verito Dugann Shellabarger 04/23/2016 12:00: 00 eCW2 ([facility] AM EDT Health Care ) Verito uDgann Keishaabarger 04/20/2016 12:00: 00 eCW2 ([facility] AM EDT Health Care ) Verito Quinteroju Valdesabarnaun 03/30/2016 12:00: 00 eCW2 ([facility] AM EDT Health Care ) Verito Dugann Keishaabarnaun 03/23/2016 12:00: 00 eCW2 ([facility] AM EDT Health Care ) Verito Dugantimothy Valdesabarnaun 03/23/2016 12:00: 00 eCW2 ([facility] AM EDT Health Care ) Verito Dugantimothy Valdesabatasia 03/23/2016 12:00: 00 eCW2 ([facility] AM EDT Health Care ) [place] Liz Dugantimothy Valdesabarnaun 03/23/2016 12:00: 00 eCW2 ([facility] AM EDT Health Care ) Verito Dugantimothy Valdesabarnaun 03/16/2016 12:00: 00 eCW2 ([facility] AM EDT Health Care ) [place] Liz Dugantimothy Valdesabarnaun 03/15/2016 12:00: 00 eCW2 ([facility] AM EDT Health Care ) [place] Liz Orteganjayashree Quinteroju Valdesabarnaun 08/15/2015 12:00: 00 eCW2 ([facility] AM EDT Health Care ) [place] Liz Orteganjayashree Quinterolyn Shellabarnaun 08/11/2015 12:00: 00 eCW2 ([facility] AM EDT Health Care ) Verito Orteganjayashree Quinterolyn Shellabarnaun 04/10/2015 12:00: 00 eCW2 ([facility] AM EDT Health Care ) [place] Liz Orteganjayashree Quinteroju Valdesabatasia 02/22/2015 12:00: 00 eCW2 ([facility] AM EDT Health Care ) [place] Radha Shellabarger 02/22/2015 12:00:00 eCW2 ([facility] AM EDT Health Care ) Verito Orteganjayashree Quinterolyn Shellabarger 01/07/2015 12:00: 00 eCW2 ([facility] AM EDT Health Care ) Verito Orteganjayashree Quinterolyn Shellabarger 12/31/2014 12:00: 00 eCW2 ([facility] AM EDT Health Care ) [facility] Radha Shellabarger 12/18/2014 12:00:00 eCW2 ([facility] AM EST Health Care ) [place] Liz Orteganjayashree Quinterolyn Shellabarger 12/11/2014 12:00: 00 eCW2 ([facility] AM EST Health Care ) [place] Liz Orteganjayashree Quinterolyn Shellabarger 12/10/2014 12:00: 00 eCW2 ([facility] AM EST Health Care ) [place] Liz Orteganjayashree Quinterolyn Shellabarnaun 11/29/2014 12:00: 00 eCW2 ([facility] AM EST Health Care ) [place] Liz Orteganjayashree Quinterolyn Shellabarger 07/29/2014 12:00: 00 eCW2 ([facility] AM EDT Health Care ) [place] Liz Orteganjayashree Quinterolyn Shellabarger 04/17/2014 12:00: 00 eCW2 ([facility] AM EDT Health Care ) [facility] Radha Shellabarger 04/17/2014 12:00:00 eCW2 ([facility] AM EDT Health Care ) [place] Liz Orteganjayashree Quinterolyn Shellabarger 05/29/2013 12:00: 00 eCW2 ([facility] AM EDT Health Care ) [place] Liz Orteganjayashree Quinterolyn Shellabarger 04/18/2013 12:00: 00 eCW2 ([facility] AM EDT Health Care ) [place] Liz Erik Radha Shellabarger 03/29/2013 12:00: 00 eCW2 ([facility] AM EDT Health Care ) [place] Liz Williamsonidris Garcia Shellabarger 03/16/2013 12:00: 00 eCW2 ([facility] AM EDT Health Care ) Verito Orteganjayashree Quinteroju Valdesabarnaun 03/13/2013 12:00: 00 eCW2 ([facility] AM EDT Health Care ) Verito Orteganjayashree Quinteroju Valdesabatasia 03/02/2013 12:00: 00 eCW2 ([facility] AM EDT Health Care ) [place] Liz Orteganjayashree Quinteroju Valdesabatasia 11/28/2012 12:00: 00 eCW2 ([facility] AM EST Health Care ) [place] Liz Orteganjayashree Quinteroju Valdesabatasia 11/28/2012 12:00: 00 eCW2 ([facility] AM EST Health Care ) [place] Liz Orteganjayashree Quinteroju Valdesabatasia 09/18/2012 12:00: 00 eCW2 ([facility] AM EST Health Care ) [place] Liz Orteganjayashree Quinteroju Valdesabatasia 09/08/2012 12:00: 00 eCW2 ([facility] AM EST Health Care ) [place] Liz Orteganjayashree Quinterolyn Shellabarnaun 08/29/2012 12:00: 00 eCW2 ([facility] AM EST Health Care ) [place] Liz Orteganjayashree Quinteroju Valdesabatasia 06/01/2012 12:00: 00 eCW2 ([facility] AM EDT Health Care ) [place] Liz Orteganjayashree Quinteroju Valdesabatasia 05/29/2012 12:00: 00 eCW2 ([facility] AM EDT Health Care ) [place] Liz Orteganjayashree Quinterolyn Shellabarnaun 05/25/2012 12:00: 00 eCW2 ([facility] AM EDT Health Care ) [place] Liz Orteganjayashree Quinteroju Valdesabarnaun 05/17/2012 12:00: 00 eCW2 ([facility] AM EDT Health Care ) [place] Liz Ortegankers Radha Valdesabarnaun 05/15/2012 12:00: 00 eCW2 ([facility] AM EDT Health Care ) [place] Liz Orteganjayashree Quinteroju Valdesabatasia 05/11/2012 12:00: 00 eCW2 ([facility] AM EDT Health Care ) [place] Liz Dugann Shellabarnaun 05/11/2012 12:00: 00 eCW2 ([facility] AM EDT Health Care ) [place] Liz Dugann Shellabarger 05/09/2012 12:00: 00 eCW2 ([facility] EDT Health Care ) [place] Liz Orteganjayashree Dugann Keishaabatasia 04/27/2012 12:00: 00 eCW2 ([facility] EDT Health Care ) [place] Liz Dugann Shellabarnaun 04/21/2012 12:00: 00 [facility] [place] Liz rOteganjayashree Dugantimothy Valdesabatasia 04/20/2012 12:00: 00 eCW2 ([facility] EDT Health Care ) [facility] Radha Shellabarnaun 04/20/2012 12:00: 00 eCW2 ([facility] EDT Health Care ) [place] Liz Dugann Shellabatasia 03/02/2012 12:00: 00 eCW2 ([facility] EDT Health Care ) [place] Liz Orteganjayashree Dugantimothy Valdesabatasia 01/31/2012 12:00: 00 eCW2 ([facility] EDT Health Care ) [place] Liz Orteganjayashree Quinterolyn Shellabatasia 01/25/2012 12:00: 00 eCW2 ([facility] AM EDT Health Care ) [place] Liz Orteganjayashree Quinterolyn Shellabarnaun 01/07/2012 12:00: 00 eCW2 ([facility] EDT Health Care ) [place] Liz Orteganjayashree Quinterolyn Shellabarnaun 01/07/2012 12:00: 00 [facility] Radha Shellabarger 01/06/2012 12:00: 00 eCW2 ([facility] AM EDT Health Care ) [place] Liz Orteganjayashree Quinterouj Valdesabatasia 12/31/2011 12:00: 00 eCW2 ([facility] AM EST Health Care ) [place] Liz Orteganjayashree Dugann Shellabarnaun 12/06/2011 12:00: 00 eCW2 ([facility] AM EST Health Care ) [place] Liz Orteganjayashree Quinteroju Valdesabarnaun 11/29/2011 12:00: 00 eCW2 ([facility] AM EST Health Care ) [place] Liz Orteganjayashree Quinteroju Valdesabatasia 11/12/2011 12:00: 00 eCW2 ([facility] AM EST Health Care ) [place] Liz Orteganjayashree Quinteroju Valdesabarnaun 11/03/2011 12:00: 00 eCW2 ([facility] AM EST Health Care ) [place] Liz Orteganjayashree Quinteroju Valdesabatasia 10/29/2011 12:00: 00 eCW2 ([facility] AM EST Health Care ) [place] Liz Orteganjayashree Quinteroju Valdesabatasia 10/19/2011 12:00: 00 eCW2 ([facility] AM EST Health Care ) [place] Liz Orteganjayashree Quinteroju Valdesabatasia 12/29/2010 12:00: 00 eCW2 ([facility] AM EST Health Care ) [place] Liz Orteganjayashree Quinteroju Valdesabatasia 09/21/2010 12:00: 00 eCW2 ([facility] AM EST Health Care ) [place] Liz Orteganjayashree Quinteroju Valdesabatasia 08/28/2010 12:00: 00 eCW2 ([facility] AM EDT Health Care ) [place] Liz Orteagnjayashree Quinteroju Valdesabatasia 04/21/2010 12:00: 00 eCW2 ([facility] AM EDT Health Care ) [place] Liz Orteganjayashree Quinteroju Valdesabatasia 11/18/2009 12:00: 00 eCW2 ([facility] AM EST Health Care ) [place] Liz Ortegankers Radhaju Valdesabatasia 11/03/2009 12:00: 00 eCW2 ([facility] AM EST Health Care ) [place] Liz Williamsonidris Valdesabatasia 10/09/2009 12:00: 00 eCW2 ([facility] AM EST Health Care ) [address] Erik Valdesabarnaun 10/07/2009 12:00: 00 eCW2 ([facility] AM EST Health Care ) [facility] Radha Valdesabarnaun 09/23/2009 12:00:00 eCW2 ([facility] EST Health Care ) [facility] Radha Valdesabarnaun 09/22/2009 12:00:00 eCW2 ([facility] EST Health Care ) [facility] Erik Valdesabarnaun 09/15/2009 12:00: 00 eCW2 ([facility] EST Health Care ) [facility] Erik Valdesabarnaun 08/01/2009 12:00: 00 eCW2 ([facility] EDT Health Care ) [facility] Erik Valdesabatasia 07/31/2009 12:00: 00 eCW2 ([facility] EDT Health Care ) [facility] Erik Valdesabarnaun 07/17/2009 12:00: 00 eCW2 ([facility] EDT Health Care ) [facility] Williamson Radha Valdesabarnaun 05/21/2009 12:00: 00 [facility] Erik Valdesabarnaun 05/21/2009 12:00: 00 [facility] Erik Valdesabarnaun 05/14/2009 12:00: 00 eCW2 ([facility] EDT Health Care ) [facility] Erik Valdesabarnaun 05/12/2009 12:00: 00 [facility] Immunizations Vaccine Date Status Description Data Source(s) Tdap 04/04/2016 completed Tdap on: 04-Apr-2016 Site: [place] [facility] [facility] structure (body structure) [facility] 12:00:00 AM EDT Lot #: [id number] H [facility] No Known Immunizations completed eCW2 ([facility]) No Known Immunizations completed eCW2 ([facility]) No Known Immunizations completed eCW2 ([facility]) No Known Immunizations completed eCW2 ([facility]) Medications Medication Brand Start Product Dose Route Administrative Pharmacy shadi Indications Reaction Description Data Name Date Form Instructions Instructions Source(s) Ibuprofen Ibupro 04/23/ active Ibuprofen eCW3 800 MG Oral fen 2020 800 MG ([place] Tablet 800 MG 12:00: [place] 00 AM Health EDT Care) Fluticasone Flutic .0 active Flutica sone eCW3 Propionate asone 2019 {spra Propionate ( [place] 50 MCG/ACT Propio 12:00: y_in_ 50 MCG/AC T [place] mac 00 AM each_ Health 50 EDT nostr Care) MCG/AC il} T Wheelchair Wheelc 12/26/ active Wheelcha ir - eCW3 - hair - 2020 ([place] 12:00: [place] 00 AM Health EST Care) Wheelchair Wheelc 12/26/ active Wheelcha ir - eCW3 - hair - 2020 ([place] 12:00: [place] 00 AM Health EST Care) Azithromyci Azithr 12/04/ active Azithro mycin eCW3 n 250 MG omycin 2020 250 MG ([place] Oral Tablet 250 MG 12:00: [place] r 00 AM Health EST Care) 30 ACTUAT Breo .0 active Breo Ellipt a eCW3 fluticasone Ellipt 2019 {puff 200-25 (Hu dson furoate 0.2 a 12:00: } MCG/INH [place] MG/ACTUAT / 200-25 00 AM Healt h vilanterol MCG/IN EST Care) 0.025 H MG/ACTUAT Dry Powder Inhaler [Breo] Breo Ellipta 200-25 MCG/INH 30 ACTUAT Breo .0 active Breo Ellipt a eCW3 fluticasone Ellipt 2019 {puff 200-25 (Hu dson furoate 0.2 a 12:00: } MCG/INH [place] MG/ACTUAT / 200-25 00 AM Healt h vilanterol MCG/IN EST Care) 0.025 H MG/ACTUAT Dry Powder Inhaler [Breo] Breo Ellipta 200-25 MCG/INH Ipratropium UNK .0 active Ipratropi um- eCW3 -Albuterol 2020 {puff Albuterol (Hu dson 12:00: _as_n 20-100 [place] MCG/ACT 00 AM eeded MCG/ACT Health EST } Care) Ipratropium UNK .0 active Ipratropi um- eCW3 -Albuterol 2020 {puff Albuterol (Hu dson 12:00: _as_n 20- [place] MCG/ACT 00 AM eeded MCG/ACT Health EST } Care) Azithromyci Azithr 12/04/ active Azithro mycin eCW3 n 250 MG omycin 2020 250 MG ([facility] Oral Tablet 250 MG 12:00: [place] 00 AM Health EST Care) Ensure - Ensure 237.0 active Ensure - eCW3 - 2020 {ml} ([place] 12:00: [place] 00 AM Health EST Care) Ensure - Ensure .0 active Ensure - eCW3 - 2020 {ml} ([place] 12:00: [place] 00 AM Health EST Care) lamotrigine Lamict .0 active Lamicta l 25 eCW3 25 MG Oral al 2018 {tabl MG ([place] Tablet MG 12:00: ets} [place] [Lamictal] 00 AM [facility] Lamictal EDT Care) MG lamotrigine Lamict .0 active Lamicta l 25 eCW3 25 MG Oral al 2018 {tabl MG ([place] Tablet MG 12:00: ets} [place] [Lamictal] 00 AM [facility] MG Levetiracet Keppra 05/28/ 10 mL INTRAV complet [facility] am [phone] ENOUS ed Health MG/ML mg/mL 04:58: System Injectable intrav 23 PM Solution enous EDT [Keppra] soluti Keppra 100 on mg/mL intravenous solution Albuterol ipratr 0 RESPIR complet [facility] 0.833 MG/ML opium- 2019 ATORY ed Healt h / albute 04:58: (INHAL System Ipratropium rol 05 PM ATION) [place] 0.5 EDT 0.167 MG/ML mg-2.5 Inhalant mg/3 Solution mLinha ipratropium lation -albuterol soluti 0.5 mg-2.5 on mg/3 mLinhalatio n solution Divalproex divalp ORAL complet [facility] Sodium 500 roex 2019 {tab( ed Health MG Delayed sodium 04:57: s)} Syste m Release 500 mg 53 PM Oral Tablet oral EDT divalproex delaye sodium 500 d mg oral releas delayed e release tablet tablet Amlodipine amLODI ORAL complet [facility] 2.5 MG Oral [place] 2019 {tab( ed Health Tablet 2.5 mg 04:57: s)} System amLODIPine oral 42 PM 2.5 mg oral tablet EDT tablet Ketotifen Ketoti .0 active Ketotifen eCW3 0.25 MG/ML fen 2018 {drop Fumarate ([facility] Ophthalmic Fumara 12:00: _into 0.025 % R iver Solution te 00 AM _[facility] Ketotifen 0.025 EDT cted_ Care) Fumarate % eye} 0.025 % Ketotifen Ketoti .0 active Ketotifen eCW3 0.25 MG/ML fen 2018 {drop Fumarate ([facility] Ophthalmic Fumara 12:00: _into 0.025 % R iver Solution te 00 AM _[facility] Ketotifen 0.025 EDT cted_ Care) Fumarate % eye} 0.025 % NITROFURANT Macrob 07/25/ active 1 capsu le eCW2 OIN, id 100 2017 with food ([place] MACROCRYSTA MG 12:00: [place] LS 25 MG / 00 AM Health Nitrofurant EDT Care) oin, Monohydrate 75 MG Oral Capsule [Macrobid] Macrobid 100 MG 30 ACTUAT Breo 10/31/ active 1 puff eCW2 fluticasone Ellipt 2017 ([place] furoate 0.2 a 12:00: [place] MG/ACTUAT / 200-25 00 AM Healt h vilanterol MCG/IN EST Care) 0.025 H MG/ACTUAT Dry Powder Inhaler [Breo] Breo Ellipta 200-25 MCG/INH Fluconazole Difluc 09/17/ suspend 1 tabl et eCW2 200 MG Oral an 200 2017 ed ([place] Tablet mg 12:00: [place] [Diflucan] 00 AM Health Diflucan EST Care) 200 mg Albuterol Ventol complet [facility] Ventolin in HFA 2017 {puff ed Health HFA 11:28: (s)} System 42 AM EST Budesonide Symbic 11/29/ AEROSOL 2 RESPIR complet [facility] 0.16 ort 2017 {puff ATORY ed Health MG/ACTUAT / 160 11:28: (s)} (INHAL Syst em formoterol mcg-4. 08 AM ATION) fumarate 5 EST 0.0045 mcg/in MG/ACTUAT h Metered inhala Dose tion Inhaler aeroso Symbicort l 160 mcg-4.5 mcg/inh inhalation aerosol Albuterol [place] RESPIR complet [facility] 0.833 MG/ML rol-ip 2017 {INHL ATORY ed Heal th / ratrop 11:22: } (INHAL System Ipratropium ium 40 AM ATION) [place] 2.5 EST 0.167 MG/ML mg-0.5 Inhalant mg/3 Solution mL albuterol-i inhala pratropium tion 2.5 mg-0.5 soluti mg/3 mL on inhalation solution Valproic valpro 11/29/ CAPSULE 2 ORAL complet [facility] Acid 250 MG ic 2017 {tab( ed Health Oral acid 11:17: s)} System Capsule 250 mg 29 AM valproic oral EST acid 250 mg capsul oral e capsule Clonidine cloNID ORAL complet [facility] Hydrochlori ine 2016 {tab( ed Health de 0.1 MG 0.1 mg 12:00: s)} System Oral Tablet oral 00 AM cloNIDine tablet EST 0.1 mg oral tablet Escitalopra escita 11/29/ TABLET 1 ORAL complet [facility] m 10 MG lopram 2016 {tab( ed Health Oral Tablet 10 mg 12:00: s)} Syste m escitalopra oral 00 AM m 10 mg tablet EST oral tablet 24 HR QUEtia ORAL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 [facility] 11:46:00 PM EDT - System 05/26/2019 11:46:00 PM EDT Electrocardiogram 12 Lead [facility] 11:59:00 AM EDT - System 05/26/2019 11:59:00 AM EDT Electrocardiogram 12 Lead 10/30/2018 [facility] 08:56:00 AM EST - System 10/30/2018 08:56:00 AM EST Salicylate Level, Serum 10/29/2018 [facility] 07:00:00 PM EST - System 10/29/2018 07:00:00 PM EST Acetaminophen Level, [facility] 07[facility] PM EST - System 10/29/2018 07:00:00 PM EST MRI Brain without contrast [facility]/28/[facility] 08:35:00 AM EST - System 09/28/2018 08:35:00 AM EST Electroencephalogram 09/27/2018 [facility] 12:06:00 PM EST - System 09/27/2018 12:06:00 PM EST Electrocardiogram 12 Lead 09/26/2018 [facility] 06:45:00 PM EST - System 09/26/2018 06:45:00 PM EST [facility] 08/02/2018 e CW2 ([facility] ([facility]) visit, 12:00:00 AM EDT [facility]) established patient; a medically-necessary, [id number] encounter (one-on-one) between an established patient and a [facility] practitioner during which time one or more [facility] services are rendered and includes a typical bundle of medicare-covered services that would be furnished filtration plant operator to a patient receiving a [facility] visit THERAPEUTIC PROPHYLACTIC/DX 08/02/2018 eCW2 ([facility] INJECTION SUBQ/IM 12:00:00 AM Replaced by [facility]) Injection, ketorolac 08/02/2018 eCW2 ([facility] tromethamine, per 15 mg 12:00:00 AM EDT [facility]) Electrocardiogram 12 Lead 06/07/[facility] 06:23:00 AM EDT - System 06/07/2018 06:23:00 AM EDT Electrocardiogram 12 Lead 03/02/[facility] 03:17:00 PM EDT - System 03/02/2018 03:17:00 PM EDT XR Chest Single AP view 09/23/2017 [facility] 09:29:06 PM EST - System 09/23/2017 09:29:06 PM EST Electrocardiogram 12 Lead 09/23/[facility] 08:30:00 PM EST - System 09/23/2017 08:30:00 PM EST Electrocardiogram 12 Lead 06/17/2017 [facility] 09:14:00 PM EDT - System 06/17/2017 09:14:00 PM EDT Electroencephalogram 11/26/2016 [facility] 11:40:42 AM EST - System 11/26/2016 11:40:42 AM EST Ceruloplasmin, Serum 11/25/2016 [facility] 08:45:00 PM EST - System 11/25/2016 08:45:00 PM EST Electrocardiogram 12 Lead [facility] - System 11/25/2016 07:02:00 PM EST Blood Gas, Whole Blood 11/25/2016 [facility] 04:30:00 PM EST - System 11/25/2016 04:30:00 PM EST Phenytoin Level, Serum 08/12/2016 [facility] 05:43:00 PM EDT - System 08/12/2016 05:43:00 PM EDT Creatine Kinase MB, Serum 08/07/2016 [facility] 04:14:00 AM EDT - System 08/07/2016 04:14:00 AM EDT Electrocardiogram 12 Lead 08/05/2016 [facility] 12:25:00 PM EDT - System 08/05/2016 12:25:00 PM EDT Venipuncture 05/18/2016 [facility] 06:08:21 PM EDT - System 05/18/2016 06:08:21 PM EDT Gabapentin Level, Serum 04/03/2016 [facility] 11:50:00 PM EDT - System 04/03/2016 11:50:00 PM EDT Gabapentin Level, Serum 04/03/2016 [facility] 10:42:54 PM EDT - System 04/03/2016 10:42:54 PM EDT Urine Toxicology Screen 04/03/2016 [facility] 01:43:00 PM EDT - System 04/03/2016 01:43:00 PM EDT Electroencephalogram 02/25/2016 [facility] 01:45:00 PM EDT - System 02/25/2016 01:45:00 PM EDT Electrocardiogram 12 Lead 02/25/2016 [facility] 09:16:00 AM EDT - System 02/25/2016 09:16:00 AM EDT Creatine Kinase, Serum 02/25/2016 [facility] 07:32:00 AM EDT - System 02/25/2016 07:32:00 AM EDT Venipuncture 02/23/2016 [facility] 04:00:02 PM EDT - System 02/23/2016 04:00:02 PM EDT Hepatic Function Panel 02/23/2016 [facility] 02:36:11 PM EDT - System 02/23/2016 02:36:11 PM EDT Electrocardiogram 12 Lead 12/11/2014 [facility] 11:05:00 AM EST - System 12/11/2014 11:05:00 AM EST No Known procedures No Known eCW2 ([facility]) No Known procedures No Known eCW2 ([facility] Care) No Known procedures No Known [facility]CW[facility]) Results ID Date Data Source [id number] 05/27/2019 02:10:00 PM EDT Nomi carrillo System Name Value Range Interpretation Description Data Sup porting Code Source(s) Document(s ) pH 7.434 7.350 - Normal (applies pH [facility] {pH_unit 7.450 pH to non-numeric Health s} units results) System Carbon dioxide 44.6 32.0 - Normal (applies pCO2, [place] [facility] [Partial {mm_Hg} 45.0 mm to non-numeric Arterial Health pressure] in Hg results) System Arterial blood Oxygen 66.2 83.0 - Below low normal pO2, Aterial [facility] [Partial {mm_Hg} 108.0 mm Health pressure] in Hg System Arterial blood Base Excess. 5.6 -3.0 - Above high normal Base Excess. [place] mmol/L 3.0 Health mmol/L System Bicarbonate 29.9 20.0 - Above high normal HCO3 [facility] [Moles/volume] mmol/L 26.0 Health in Venous mmol/L System blood TCO2 26.3 24.0 - Normal (applies TCO2 [facility] mmol/L 30.0 to non-numeric Health mmol/L results) System O2 Saturation 93.7 % 95.0 - Below low normal O2 Saturation Reynaldo josy 99.0 % Health System Sodium, WB 143 137 - Normal (applies Sodium, WB [facility] mmol/L 145 to non-numeric Health mmol/L results) System Potassium, WB 3.5 3.6 - Below low normal Potassium, WB Reynaldo josy mmol/L 5.0 Health mmol/L System Chloride, WB 107 98 - 107 Normal (applies Chloride, WB [place] mmol/L mmol/L to non-numeric Health results) System Glucose, WB 98 mg/dL 70 - 105 Normal (applies Glucose, WB [facility] mg/dL to non-numeric Health results) System Ionized 1.27 1.15 - Normal (applies Ionized [facility] Calcium mmol/L 1.29 to non-numeric Calcium Health mmol/L results) System Lactate 0.5 0.5 - Normal (applies Lactate [facility] [Mass/volume] mmol/L 1.6 to non-numeric Health in Serum or mmol/L results) System Plasma ID Date Data Source [id number] 05/27/2019 02:10:00 PM EDT [place] [facility] System Name Value Range Interpretation Description Data Sup porting Code Source(s) Document(s ) Amphetamine Negative Negative Normal (applies Amphetamine [facility] [Mass/volume] ng/ml to non-numeric Level, Urine Health in Urine results) System Cut-off = 1000 ng/mL Barbiturates Negative Negative Normal (applies Barbiturate [place] [facility] [Mass/volume] in ng/ml to non-numeric Screen, Urine Heal System Urine by Screen results) method Cut-off = 200 ng/mL Benzodiazepines Negative Negative Normal Benzodiazepines, [facility] [place] [Mass/volume] in ng/mL (applies to Urine Health Urine non-numeric System results) Cut-off = 200 ng/mL Cocaine Negative Negative Normal (applies Cocaine [facility] metabolites.other ng/ml to non-numeric Metabolite Health System [Mass/volume] in results) Screen, Urine Urine Cut-off = 300 ng/mL Methadone Negative Negative Normal (applies Methadone [facility] [Mass/volume] in ng/mL to non-numeric Level, Urine Healt h System Urine results) Cut-off = 300 ng/mL Opiate 300, Negative Negative ng/ml Normal (applies to Opiate 300, [facility] Urine non-numeric Urine Health System results) Cut-off = 300 ng/mL Phencyclidine Positive Negative Abnormal Phencyclidine, [facility] [Mass/volume] in ng/ml (applies to Urine Health Syst em Urine non-numeric results) Cut-off = 25 ng/mL Cannabinoid Negative Negative Normal (applies Cannabinoid [facility] (THC) ng/mL to non-numeric (THC) Health System results) Cutt-off = 50These results are for medic al treatment only. The positive findings are unconfirmed. Request confirmatory/quanti tative test if needed. ID Date Data Source [id number] 05/27/2019 09:35:00 AM EDT [place] [facility] System Name Value Range Interpretation Description Data Sup porting Code Source(s) Document(s ) Magnesium 2.2 1.5 - Above high normal Magnesium, [facility] [Mass/volume {mEq/L} 2.2 Serum Health System ] in Serum mEq/L or Plasma ID Date Data Source [id number] 05/27/2019 09:00:00 AM EDT [facility] Name Value Range Interpretation Description Data Sup porting Code Source(s) Document(s ) Creatine 947 30 - 135 Above high normal Creatine [facility] kinase.MB {IU/L} IU/L Kinase, Serum Health System [Mass/volum e] in Serum or Plasma ID Date Data Source [id number] 05/27/2019 03:48:00 AM EDT [facility] CT head without IV contrastCLINICAL INFO RMATION: Seizure.TECHNIQUE: Contiguous axial 5 mm sections were obtained through the head. RADIATION DOSE: Automatic exposure control or low dose technique with adjus tment of the dose based on patient size was utilized. The total DLP for this examin ation is estimated at 850 mGy-cm.FINDINGS: Correlation is made with a prior study d one on 10/29/2018.Limited examination secondary to patient motion.The ventricl es and sulci are appropriate for patient's stated age. There is no definite eviden ce of abnormal parenchymal attenuation seen. There is no definite evidence of acute i ntracranial hemorrhage, mass-effect, midline shift or extra-axial fluid collection. There is no definite evidence of acute territorial infarct.The visualized orbit s appear grossly unremarkable. The visualized paranasal sinuses and mastoid air cells appear clear. The visualized calvarium appears intact.IMPRESSION: Li mited examination secondary to patient motion.No definite evidence of acute int racranial hemorrhage, mass effect, midline shift or acute territorial infarct.If cl inically indicated, a repeat examination with patient sedation may be obtained for pro per evaluation.MR examination would be more sensitive for evaluation of seizures. Name Value Range Interpretation Code Description Data Suha rce(s) Supporting Document(s ) ID Date Data Source [id number] 05/26/2019 11:43:00 PM EDT [facility] Name Value Range Interpretation Description Data Sup porting Code Source(s) Document(s ) Acetylsalicylate < 4.0 2.0 - Normal (applies Salicylate [place] [Mass/volume] in 30.0 to non-numeric Level, Serum Healt h Serum or Plasma mg/dl results) System ID Date Data Source [id number] 05/26/2019 11:43:00 PM EDT [facility] Name Value Range Interpretation Description Data Sup porting Code Source(s) Document(s ) Acetaminophen < 4 10 - 30 Below low normal Acetaminophen Reynaldo josy [Mass/volume] in ug/ml Level, Serum Health Serum or Plasma System ID Date Data Source [id number] 05/26/2019 11:43:00 PM EDT [facility] Name Value Range Interpretation Description Data Sup porting Code Source(s) Document(s ) Leukocytes 8.4 4.8 - Normal (applies WBC Count [facility] [#/volume] in {10^3_u 10.8 to non-numeric Health Unspecified L} 10^3 uL results) System specimen by Automated count Erythrocytes 4.52 3.80 - Normal (applies RBC Count [facility] [#/volume] in {10^6_u 5.20 to non-numeric Health Blood by L} 10^6 uL results) System Automated count Hemoglobin 14.2 12.0 - Normal (applies Hemoglobin [facility] [Mass/volume] in {gm/dL} 16.0 to non-numeric Health Blood gm/dL results) System Hematocrit 43.3 % 36.0 - Normal (applies Hematocrit [facility] [Volume 46.0 % to non-numeric Health Fraction] of results) System Blood Erythrocyte mean 95.8 fl 83.0 - Normal (applies MCV [facility] corpuscular 98.0 fl to non-numeric Health volume [Entitic results) System volume] by Automated count Erythrocyte mean 31.4 pg 26.0 - Normal (applies MCH [facility] corpuscular 34.0 pg to non-numeric Health hemoglobin results) System [Entitic mass] by Automated count Erythrocyte mean 32.8 33.0 - Below low normal MCHC [place] corpuscular {gm/dL} 37.0 Health hemoglobin gm/dL System concentration [Mass/volume] by Automated count Erythrocyte 12.9 % 11.5 - Normal (applies RDW-CV [facility] distribution 14.5 % to non-numeric Health width [Entitic results) System volume] by Automated count Platelets 333 130 - Normal (applies Platelet Count [place] [facility] [#/volume] in {10^3_u 400 to non-numeric Health Plasma by L} 10^3 uL results) System Automated count Platelet mean 9.2 fl 7.4 - Normal (applies MPV [facility] volume [Entitic 10.4 fl to non-numeric Health volume] in Blood results) System by Automated count Monocytes 0.6 0.3 - Normal (applies Monocyte # [facility] [#/volume] in {10^3_u 0.9 to non-numeric Health Blood by Manual L} 10^3 uL results) System count Eosinophils 0.26 0.05 - Normal (applies Eosinophil # [place] [#/volume] in {10^3_u 0.30 to non-numeric Health Blood L} 10^3 uL results) System Neutrophils 4.7 2.0 - Normal (applies Neutrophil # [place] [#/volume] in {10^3_u 8.1 to non-numeric Health Body fluid L} 10^3 uL results) System Basophils 0.04 0.00 - Normal (applies Basophil # [facility] [#/volume] in {10^3_u 0.10 to non-numeric Health Blood by L} 10^3 uL results) System Automated count Lymphocyte # 2.8 1.0 - Normal (applies Lymphocyte # [facility] [facility] {10^3_u 5.5 to non-numeric Health L} 10^3 uL results) System Neutrophils/100 56.3 % 55.0 - Normal (applies Neutrophil % Reynaldo josy leukocytes in 75.0 % to non-numeric Health Blood by results) System Automated count Monocytes/100 6.6 % 6.0 - Normal (applies Monocyte % [place] leukocytes in 9.0 % to non-numeric Health Blood results) System Eosinophils/100 3.1 % 0.0 - Normal (applies Eosinophil % Reynaldo josy leukocytes in 4.0 % to non-numeric Health Unspecified results) System specimen Basophils/100 0.5 % 0.0 - Normal (applies Basophil % [place] leukocytes in 1.0 % to non-numeric Health Unspecified results) System specimen by Manual count Lymphocytes 33.1 % 21.0 - Normal (applies Lymphocyte % [place] [facility] [#/volume] in 51.0 % to non-numeric Health Blood by results) System Automated count Immature 0.4 % 0.0 - Normal (applies Immature [facility] Granulocytes % 0.8 % to non-numeric Granulocytes % Healt h results) System Nucleated 0.0 0.0 - Normal (applies NRBC % [facility] erythrocytes {/100_W 0.0 to non-numeric Health [#/volume] in BC} /100 results) System Body fluid WBC Immature 0.03 0.00 - Normal (applies Immature [facility] Granulocytes # {10^3_u 0.09 to non-numeric Granulocytes # Healt h L} 10^3 uL results) System NRBC # 0.00 0.90 - Below low normal NRBC # [facility] {10^3_u 11.20 Health L} 10^3 uL System ID Date Data Source [id number] 05/26/2019 11:43:00 PM EDT [facility] Name Value Range Interpretation Description Data Source(s ) Supporting Code Document(s ) Alcohol < 9.9 Normal (applies to Alcohol Ethyl, [facility] Ethyl, non-numeric Blood Health System Blood results) None Detected ID Date Data Source [id number] 05/26/2019 11:43:00 PM EDT [facility] Name Value Range Interpretation Description Data Sup porting Code Source(s) Document(s ) Sodium 144 137 - Normal (applies Sodium, Serum [facility] [Moles/volume] in mmol/L 145 to non-numeric Health Serum or Plasma mmol/L results) System Potassium 4.4 3.6 - Normal (applies Potassium, [facility] [Mass/volume] in mmol/L 5.0 to non-numeric Serum Health Serum or Plasma mmol/L results) System Chloride 104 98 - Normal (applies Chloride, [facility] [Moles/volume] in mmol/L 107 to non-numeric Serum Health Serum or Plasma mmol/L results) System Carbon dioxide, 19.0 22.0 - Below low normal CO2, Serum [facility] total mmol/L 30.0 Health [Moles/volume] in mmol/L System Serum or Plasma Total Protein 8.2 6.3 - Normal (applies Total Protein [facility] mg/dl 8.2 to non-numeric Health mg/dl results) System Glucose 86 65 - Normal (applies Glucose, [facility] [Mass/volume] in mg/dL 105 to non-numeric Serum Health Serum or Plasma mg/dL results) System Urea nitrogen 10 7 - 18 Normal (applies Blood Urea [facility] [Mass/volume] in mg/dl mg/dl to non-numeric Nitrogen, Health Serum or Plasma results) Serum System Creatinine 0.90 0.70 - Normal (applies Creatinine, [facility] [Mass/volume] in mg/dl 1.20 to non-numeric Serum Health Serum or Plasma mg/dl results) System Alkaline 89 38 - Normal (applies Alkaline [facility] phosphatase {IU/L} 126 to non-numeric Phosphatase, Health isoenzymes IU/L results) Serum System [Enzymatic activity/volume] in Serum or Plasma by Heat stability Bilirubin.total 0.3 0.2 - Normal (applies Bilirubin, [facility] [Mass/volume] in mg/dl 1.3 to non-numeric Serum Total Health Serum or Plasma mg/dl results) System Direct Bilirubin 0.1 0.0 - Normal (applies Direct [facility] mg/dl 0.4 to non-numeric Bilirubin [facility] mg/dl results) System Aspartate 23 5 - 40 Normal (applies Aspartate [facility] aminotransferase {IU/L} IU/L to non-numeric Transaminase, [facility] [Enzymatic results) Serum System activity/volume] in Serum or Plasma by With P-5'-P Albumin 4.5 3.9 - Normal (applies Albumin, [facility] [Mass/volume] in {gm/dl} 5.0 to non-numeric Serum Health Serum or Plasma gm/dl results) System I. Phosphorus 4.1 2.5 - Normal (applies I. Phosphorus [facility] mg/dl 4.5 to non-numeric Health mg/dl results) System Alanine 18 7 - 56 Normal (applies Alanine [facility] aminotransferase {IU/L} IU/L to non-numeric Aminotransfer [facility] [Enzymatic results) ase, Serum System activity/volume] in Serum or Plasma Calcium 10.0 8.4 - Normal (applies Calcium, [facility] [Mass/volume] in mg/dl 10.2 to non-numeric Total Serum Health Serum or Plasma mg/dl results) System A/G Ratio 1.22 Normal (applies A/G Ratio [facility] to non-numeric Health results) System Urate 5.2 2.5 - Normal (applies Uric Acid, [facility] [Mass/volume] in mg/dl 7.5 to non-numeric Serum Health Serum or Plasma mg/dl results) System Anion gap in Serum 21.00 8.00 - Above high Anion Gap [facility] or Plasma mmol/L 12.00 normal Health mmol/L System Glomerular 66.10 Normal (applies GFR [facility] filtration to non-numeric Health rate/1.73 sq results) System M.predicted [Volume Rate/Area] in Serum or Plasma by Creatinine-based formula (CKD-EPI) eGFR will provide clinicians with a more accurate indicator of renal function then the serum creatinine. The eGFR is automa tically calculated from an empiric formula (endorsed by the [employer] ion) which incorporates age, sex, and race.Clinicians may notice surprisingly low GFR's with serum creatinine valueswithin normal range- particularly in elderly wo men (with low muscle mass).In the hospital setting, the eGFR should add an element of safety in drug dosing, in assessing the risk of IV contrast administration, and in assessing vascular risk.The NKF staging system is as follows:Normal: eGFR >90 with no kidney markersStage 1: eGFR >90 with kidney markers*Stage 2: eGFR 60- 89Stage 3: eGFR 30-59Stage 4: eGFR 15-29Stage 5: eGFR <15 (usually requir ing dialysis)*Markers include: Proteinuria, Hematuria, abnormal imaging-studies, or other blood or urine test abnormalities ID Date Data Source [id number] 05/26/2019 11:43:00 PM EDT [facility] System Name Value Range Interpretation Description Data Sup porting Code Source(s) Document(s ) Troponin I 0.00 0.00 - Normal (applies Troponin I [facility] Quantitative - ng/mL 0.04 to non-numeric Quantitative - Healt h MV Only ng/mL results) MV Only System ID Date Data Source [id number] 10/29/2018 06:19:00 PM EST [facility] System Name Value Range Interpretation Description Data Sup porting Code Source(s) Document(s ) Leukocytes 6.9 4.8 - Normal (applies WBC Count [facility] [#/volume] in {10^3_u 10.8 to non-numeric Health Unspecified L} 10^3 uL results) System specimen by Automated count Erythrocytes 4.26 3.80 - Normal (applies RBC Count [facility] [#/volume] in {10^6_u 5.20 to non-numeric Health Blood by L} 10^6 uL results) System Automated count Hemoglobin 13.5 12.0 - Normal (applies Hemoglobin [facility] [Mass/volume] in {gm/dL} 16.0 to non-numeric Health Blood gm/dL results) System Hematocrit 40.8 % 36.0 - Normal (applies Hematocrit [facility] [Volume 46.0 % to non-numeric Health Fraction] of results) System Blood Erythrocyte mean 95.8 fl 83.0 - Normal (applies MCV [facility] corpuscular 98.0 fl to non-numeric Health volume [Entitic results) System volume] by Automated count Erythrocyte mean 31.7 pg 26.0 - Normal (applies MCH [facility] corpuscular 34.0 pg to non-numeric Health hemoglobin results) System [Entitic mass] by Automated count Erythrocyte mean 33.1 33.0 - Normal (applies MCHC [facility] corpuscular {gm/dL} 37.0 to non-numeric Health hemoglobin gm/dL results) System concentration [Mass/volume] by Automated count Erythrocyte 13.0 % 11.5 - Normal (applies RDW-CV [facility] distribution 14.5 % to non-numeric Health width [Entitic results) System volume] by Automated count Platelets 212 130 - Normal (applies Platelet Count [facility] [#/volume] in {10^3_u 400 to non-numeric Health Plasma by L} 10^3 uL results) System Automated count Platelet mean 9.8 fl 7.4 - Normal (applies MPV [facility] volume [Entitic 10.4 fl to non-numeric Health volume] in Blood results) System by Automated count Monocytes 0.4 0.3 - Normal (applies Monocyte # [facility] [#/volume] in {10^3_u 0.9 to non-numeric Health Blood by Manual L} 10^3 uL results) System count Eosinophils 0.20 0.05 - Normal (applies Eosinophil # [facility] [#/volume] in {10^3_u 0.30 to non-numeric Health Blood L} 10^3 uL results) System Neutrophils 5.0 2.0 - Normal (applies Neutrophil # [facility] [#/volume] in {10^3_u 8.1 to non-numeric Health Body fluid L} 10^3 uL results) System Basophils 0.06 0.00 - Normal (applies Basophil # [facility] [#/volume] in {10^3_u 0.10 to non-numeric Health Blood by L} 10^3 uL results) System Automated count Lymphocyte # 1.3 1.0 - Normal (applies Lymphocyte # [facility] {10^3_u 5.5 to non-numeric Health L} 10^3 uL results) System Neutrophils/100 71.9 % 55.0 - Normal (applies Neutrophil % Reynaldo josy leukocytes in 75.0 % to non-numeric Health Blood by results) System Automated count Monocytes/100 6.2 % 6.0 - Normal (applies Monocyte % [facility] leukocytes in 9.0 % to non-numeric Health Blood results) System Eosinophils/100 2.9 % 0.0 - Normal (applies Eosinophil % Reynaldo josy leukocytes in 4.0 % to non-numeric Health Unspecified results) System specimen Basophils/100 0.9 % 0.0 - Normal (applies Basophil % [facility] leukocytes in 1.0 % to non-numeric Health Unspecified results) System specimen by Manual count Lymphocytes 18.0 % 21.0 - Below low normal Lymphocyte % [facility] [#/volume] in 51.0 % Health Blood by System Automated count Immature 0.1 % 0.0 - Normal (applies Immature [facility] Granulocytes % 0.8 % to non-numeric Granulocytes % [facility] results) System Nucleated 0.0 0.0 - Normal (applies NRBC % [facility] erythrocytes {/100_W 0.0 to non-numeric Health [#/volume] in BC} /100 results) System Body fluid WBC Immature 0.01 0.00 - Normal (applies Immature [facility] Granulocytes # {10^3_u 0.09 to non-numeric Granulocytes # [facility]alt [facility] L} 10^3 uL results) System NRBC # 0.00 0.90 - Below low normal NRBC # [facility] {10^3_u 11.20 Health L} 10^3 uL System ID Date Data Source [id number] 10/29/2018 06:19:00 PM EST [facility] System Name Value Range Interpretation Description Data Sup porting Code Source(s) Document(s ) hCG < 5.0 Normal (applies hCG [facility] Quantitative to non-numeric Quantitative Health Sy stem results) Negative = <5 mIU/mLAPPROXIMATE GEST. AG E APPROXIMATE HCG mIU/ML 0.2 - 1 week 5 - 50 1 - 2 w eeks 50 - 500 2 - 3 weeks 100 - 5,000 3 - 4 weeks 500 - 10,000 4 - 5 weeks 1,000 - 50,000 5 - 6 weeks 10,000 - 100,000 6 - 8 weeks 15,000 - 200,000 8 - 12 weeks 10,000 - 1 00,000HCG levels between 5-25 mIU/mL may be indicative of early . Correlati on with other clinical findings and/or repeat of HCG quantitative testing recommened. ID Date Data Source [id number] 10/29/2018 06:19:00 PM EST [facility] System Name Value Range Interpretation Description Data Sup porting Code Source(s) Document(s ) Valproate 0.1 "." Normal (applies Valproic Acid [facility] [Mass/volume ug/ml ug/ml to non-numeric Level, Serum Health Sy stem ] in Serum results) or Plasma Therapeutic 50 - 100Toxic >100 ug/mL ID Date Data Source [id number] 10/29/2018 06:19:00 PM EST [facility] System Name Value Range Interpretation Description Data Sup porting Code Source(s) Document(s ) Sodium 146 137 - Above high Sodium, Serum [facility] [Moles/volume] in mmol/L 145 normal Health Serum or Plasma mmol/L System Potassium 4.1 3.6 - Normal (applies Potassium, [facility] [Mass/volume] in mmol/L 5.0 to non-numeric Serum Health Serum or Plasma mmol/L results) System Chloride 110 98 - Above high Chloride, [facility] [Moles/volume] in mmol/L 107 normal Serum Health Serum or Plasma mmol/L System Carbon dioxide, 24.0 22.0 - Normal (applies CO2, Serum [facility] total mmol/L 30.0 to non-numeric Health [Moles/volume] in mmol/L results) System Serum or Plasma Total Protein 7.4 6.3 - Normal (applies Total Protein [facility] mg/dl 8.2 to non-numeric Health mg/dl results) System Glucose 77 65 - Normal (applies Glucose, [facility] [Mass/volume] in mg/dL 105 to non-numeric Serum Health Serum or Plasma mg/dL results) System Urea nitrogen 17 7 - 18 Normal (applies Blood Urea [facility] [Mass/volume] in mg/dl mg/dl to non-numeric Nitrogen, Health Serum or Plasma results) Serum System Creatinine 1.10 0.70 - Normal (applies Creatinine, [facility] [Mass/volume] in mg/dl 1.20 to non-numeric Serum Health Serum or Plasma mg/dl results) System Alkaline 68 38 - Normal (applies Alkaline [facility] phosphatase {IU/L} 126 to non-numeric Phosphatase, Health isoenzymes IU/L results) Serum System [Enzymatic activity/volume] in Serum or Plasma by Heat stability Bilirubin.total 0.3 0.2 - Normal (applies Bilirubin, [facility] [Mass/volume] in mg/dl 1.3 to non-numeric Serum Total Health Serum or Plasma mg/dl results) System Direct Bilirubin 0.1 0.0 - Normal (applies Direct [facility] mg/dl 0.4 to non-numeric Bilirubin [facility] mg/dl results) System Aspartate 20 5 - 40 Normal (applies Aspartate [facility] aminotransferase {IU/L} IU/L to non-numeric Transaminase, [facility] [Enzymatic results) Serum System activity/volume] in Serum or Plasma by With P-5'-P Albumin 4.4 3.9 - Normal (applies Albumin, [facility] [Mass/volume] in {gm/dl} 5.0 to non-numeric Serum Health Serum or Plasma gm/dl results) System I. Phosphorus 3.6 2.5 - Normal (applies I. Phosphorus [facility] mg/dl 4.5 to non-numeric Health mg/dl results) System Alanine 12 7 - 56 Normal (applies Alanine [facility] aminotransferase {IU/L} IU/L to non-numeric Aminotransfer [facility] [Enzymatic results) ase, Serum System activity/volume] in Serum or Plasma Calcium 9.8 8.4 - Normal (applies Calcium, [facility] [Mass/volume] in mg/dl 10.2 to non-numeric Total Serum Health Serum or Plasma mg/dl results) System A/G Ratio 1.47 Normal (applies A/G Ratio [facility] to non-numeric Health results) System Urate 6.0 2.5 - Normal (applies Uric Acid, [facility] [Mass/volume] in mg/dl 7.5 to non-numeric Serum Health Serum or Plasma mg/dl results) System Anion gap in Serum 12.00 8.00 - Normal (applies Anion Gap Reynaldo josy or Plasma mmol/L 12.00 to non-numeric Health mmol/L results) System Glomerular 52.56 Normal (applies GFR [facility] filtration to non-numeric Health rate/1.73 sq results) System M.predicted [Volume Rate/Area] in Serum or Plasma by Creatinine-based formula (CKD-EPI) eGFR will provide clinicians with a more accurate indicator of renal function then the serum creatinine. The eGFR is automa tically calculated from an empiric formula (endorsed by the [employer]) which incorporates age, sex, and race.Clinicians may notice surprisingly low GFR's with serum creatinine valueswithin normal range- particularly in elderly wo men (with low muscle mass).In the hospital setting, the eGFR should add an element of safety in drug dosing, in assessing the risk of IV contrast administration, and in assessing vascular risk.The NKF staging system is as follows:Normal: eGFR >90 with no kidney markersStage 1: eGFR >90 with kidney markers*Stage 2: eGFR 60- 89Stage 3: eGFR 30-59Stage 4: eGFR 15-29Stage 5: eGFR <15 (usually requir ing dialysis)*Markers include: Proteinuria, Hematuria, abnormal imaging-studies, or other blood or urine test abnormalities ID Date Data Source [id number] 10/29/2018 06:19:00 PM EST [facility]idamian [facility] System Name Value Range Interpretation Description Data Sup porting Code Source(s) Document(s ) Phenytoin 0.0 10.0 - Below low normal Phenytoin [facility] [Mass/volume ug/ml 20.0 Level, Serum Health System ] in Serum ug/ml or Plasma ID Date Data Source [id number] 10/29/2018 06:19:00 PM EST [facility] System Name Value Range Interpretation Description Data Sup porting Code Source(s) Document(s ) Alcohol NON Normal (applies Alcohol Ethyl, [facility] Ethyl, DETECTED to non-numeric Blood Health System Blood None results) Detected ID Date Data Source [id number] 09/28/2018 06:00:00 AM EST [facility] System Name Value Range Interpretation Description Data Sup porting Code Source(s) Document(s ) Leukocytes 8.2 4.8 - Normal (applies WBC Count [facility] [#/volume] in {10^3_u 10.8 to non-numeric Health Unspecified L} 10^3 uL results) System specimen by Automated count Erythrocytes 4.47 3.80 - Normal (applies RBC Count [facility] [#/volume] in {10^6_u 5.20 to non-numeric Health Blood by L} 10^6 uL results) System Automated count Hemoglobin 14.2 12.0 - Normal (applies Hemoglobin [facility] [Mass/volume] in {gm/dL} 16.0 to non-numeric Health Blood gm/dL results) System Hematocrit 44.2 % 36.0 - Normal (applies Hematocrit [facility] [Volume 46.0 % to non-numeric Health Fraction] of results) System Blood Erythrocyte mean 98.9 fl 83.0 - Above high MCV [facility] corpuscular 98.0 fl normal Health volume [Entitic System volume] by Automated count Erythrocyte mean 31.8 pg 26.0 - Normal (applies MCH [facility] corpuscular 34.0 pg to non-numeric Health hemoglobin results) System [Entitic mass] by Automated count Erythrocyte mean 32.1 33.0 - Below low normal MCHC [facility] corpuscular {gm/dL} 37.0 Health hemoglobin gm/dL System concentration [Mass/volume] by Automated count Erythrocyte 12.8 % 11.5 - Normal (applies RDW-CV [facility] distribution 14.5 % to non-numeric Health width [Entitic results) System volume] by Automated count Platelets 258 130 - Normal (applies Platelet Count [facility] [#/volume] in {10^3_u 400 to non-numeric Health Plasma by L} 10^3 uL results) System Automated count Platelet mean 10.2 fl 7.4 - Normal (applies MPV [facility] volume [Entitic 10.4 fl to non-numeric Health volume] in Blood results) System by Automated count Monocytes 0.5 0.3 - Normal (applies Monocyte # [facility] [#/volume] in {10^3_u 0.9 to non-numeric Health Blood by Manual L} 10^3 uL results) System count Eosinophils 0.09 0.05 - Normal (applies Eosinophil # [facility] [#/volume] in {10^3_u 0.30 to non-numeric Health Blood L} 10^3 uL results) System Neutrophils 6.1 2.0 - Normal (applies Neutrophil # [facility] [#/volume] in {10^3_u 8.1 to non-numeric Health Body fluid L} 10^3 uL results) System Basophils 0.05 0.00 - Normal (applies Basophil # [facility] [#/volume] in {10^3_u 0.10 to non-numeric Health Blood by L} 10^3 uL results) System Automated count Lymphocyte # 1.5 1.0 - Normal (applies Lymphocyte # [facility] {10^3_u 5.5 to non-numeric Health L} 10^3 uL results) System Neutrophils/100 73.9 % 55.0 - Normal (applies Neutrophil % Reynaldo josy leukocytes in 75.0 % to non-numeric Health Blood by results) System Automated count Monocytes/100 6.2 % 6.0 - Normal (applies Monocyte % [facility] leukocytes in 9.0 % to non-numeric Health Blood results) System Eosinophils/100 1.1 % 0.0 - Normal (applies Eosinophil % Reynaldo josy leukocytes in 4.0 % to non-numeric Health Unspecified results) System specimen Basophils/100 0.6 % 0.0 - Normal (applies Basophil % [facility] leukocytes in 1.0 % to non-numeric Health Unspecified results) System specimen by Manual count Lymphocytes 17.8 % 21.0 - Below low normal Lymphocyte % [facility] [#/volume] in 51.0 % Health Blood by System Automated count Immature 0.4 % 0.0 - Normal (applies Immature [facility] Granulocytes % 0.8 % to non-numeric Granulocytes % Healt h results) System Nucleated 0.0 0.0 - Normal (applies NRBC % [facility] erythrocytes {/100_W 0.0 to non-numeric Health [#/volume] in BC} /100 results) System Body fluid WBC Immature 0.03 0.00 - Normal (applies Immature [facility] Granulocytes # {10^3_u 0.09 to non-numeric Granulocytes # [facility]alt [facility] L} 10^3 uL results) System NRBC # 0.00 0.90 - Below low normal NRBC # [facility] {10^3_u 11.20 Health L} 10^3 uL System ID Date Data Source [id number] 09/28/2018 06:00:00 AM EST [facility] System Name Value Range Interpretation Description Data Sup porting Code Source(s) Document(s ) Sodium 144 137 - Normal (applies Sodium, Serum [facility] [Moles/volum mmol/L 145 to non-numeric Health Syste m e] in Serum mmol/L results) or Plasma Potassium 4.1 3.6 - Normal (applies Potassium, [facility] [Mass/volume mmol/L 5.0 to non-numeric Serum Health Syste m ] in Serum mmol/L results) or Plasma Chloride 104 98 - 107 Normal (applies Chloride, [facility] [Moles/volum mmol/L mmol/L to non-numeric Serum Health Syste m e] in Serum results) or Plasma Carbon 25.0 22.0 - Normal (applies CO2, Serum [facility] dioxide, mmol/L 30.0 to non-numeric Health System total mmol/L results) [Moles/volum e] in Serum or Plasma Total 7.1 6.3 - Normal (applies Total Protein [facility] Protein mg/dl 8.2 to non-numeric Health System mg/dl results) Glucose 30 mg/dL 65 - 105 Below lower panic Glucose, Serum [facility] [Mass/volume mg/dL limits Health System ] in Serum or Plasma Result Reporting|Telephone|Nurse Diane Ridley|09/28/2018 at 9:19 AMCalled to:Nurse Diane RidleyTech Name:Adriana Bryan ck by:Nurse Diane Ridley09/28/2018 / 9:18 AM Urea nitrogen 24 mg/dl 7 - 18 Above high Blood Urea [facility] [Mass/volume] in Serum mg/dl normal Nitrogen, Serum H ealth System or Plasma Creatinine 1.10 mg/dl 0.70 - Normal Creatinine, [facility] [Mass/volume] in Serum 1.20 mg/dl (applies to Serum Heal th System or Plasma non-numeric results) Alkaline phosphatase 79 {IU/L} 38 - 126 Normal Alkaline [facility] isoenzymes [Enzymatic IU/L (applies to Phosphatase, Hea lth System activity/volume] in non-numeric Serum Serum or Plasma by results) Heat stability Bilirubin.total 0.6 mg/dl 0.2 - 1.3 Normal Bilirubin, [facility] [Mass/volume] in Serum mg/dl (applies to Serum Total Hea lth System or Plasma non-numeric results) Direct Bilirubin 0.3 mg/dl 0.0 - 0.4 Normal Direct [facility] mg/dl (applies to Bilirubin Health System non-numeric results) Aspartate 22 {IU/L} 5 - 40 Normal Aspartate [facility] aminotransferase IU/L (applies to Transaminase, Health System [Enzymatic non-numeric Serum activity/volume] in results) Serum or Plasma by With P-5'-P Albumin [Mass/volume] 4.1 3.9 - 5.0 Normal Albumin, Serum [facility] in Serum or Plasma {gm/dl} gm/dl (applies to Health Sy stem non-numeric results) I. Phosphorus 3.2 mg/dl 2.5 - 4.5 Normal I. Phosphorus [facility] mg/dl (applies to Health System non-numeric results) Alanine 16 {IU/L} 7 - 56 Normal Alanine [facility] aminotransferase IU/L (applies to Aminotransferas Healt h System [Enzymatic non-numeric e, Serum activity/volume] in results) Serum or Plasma Calcium [Mass/volume] 9.5 mg/dl 8.4 - 10.2 Normal Calcium, Total [facility] in Serum or Plasma mg/dl (applies to Serum Health Sy stem non-numeric results) A/G Ratio 1.37 Normal A/G Ratio [facility] (applies to Health System non-numeric results) Urate [Mass/volume] in 5.5 mg/dl 2.5 - 7.5 Normal Uric Acid, [facility] Serum or Plasma mg/dl (applies to Serum Health Syste m non-numeric results) Anion gap in Serum or 15.00 8.00 - Above high Anion Gap [facility] Plasma mmol/L 12.00 normal Health System mmol/L Glomerular filtration 52.58 Normal GFR [facility] rate/1.73 sq (applies to Health System M.predicted [Volume non-numeric Rate/Area] in Serum or results) Plasma by Creatinine-based formula (CKD-EPI) eGFR will provide clinicians with a more accurate indicator of renal function then the serum creatinine. The eGFR is automa tically calculated from an empiric formula (endorsed by the [employer]) which incorporates age, sex, and race.Clinicians may notice surprisingly low GFR's with serum creatinine valueswithin normal range- particularly in elderly wo men (with low muscle mass).In the hospital setting, the eGFR should add an element of safety in drug dosing, in assessing the risk of IV contrast administration, and in assessing vascular risk.The NKF staging system is as follows:Normal: eGFR >90 with no kidney markersStage 1: eGFR >90 with kidney markers*Stage 2: eGFR 60- 89Stage 3: eGFR 30-59Stage 4: eGFR 15-29Stage 5: eGFR <15 (usually requir ing dialysis)*Markers include: Proteinuria, Hematuria, abnormal imaging-studies, or other blood or urine test abnormalities ID Date Data Source [id number] 09/27/2018 06:00:00 AM EST [facility] Name Value Range Interpretation Description Data Sup porting Code Source(s) Document(s ) Leukocytes 8.6 4.8 - Normal (applies WBC Count [facility] [#/volume] in {10^3_u 10.8 to non-numeric Health Unspecified L} 10^3 uL results) System specimen by Automated count Erythrocytes 4.18 3.80 - Normal (applies RBC Count [facility] [#/volume] in {10^6_u 5.20 to non-numeric Health Blood by L} 10^6 uL results) System Automated count Hemoglobin 13.3 12.0 - Normal (applies Hemoglobin [facility] [Mass/volume] in {gm/dL} 16.0 to non-numeric Health Blood gm/dL results) System Hematocrit 41.0 % 36.0 - Normal (applies Hematocrit [facility] [Volume 46.0 % to non-numeric Health Fraction] of results) System Blood Erythrocyte mean 98.1 fl 83.0 - Above high MCV [facility] corpuscular 98.0 fl normal Health volume [Entitic System volume] by Automated count Erythrocyte mean 31.8 pg 26.0 - Normal (applies MCH [facility] corpuscular 34.0 pg to non-numeric Health hemoglobin results) System [Entitic mass] by Automated count Erythrocyte mean 32.4 33.0 - Below low normal MCHC [facility] corpuscular {gm/dL} 37.0 Health hemoglobin gm/dL System concentration [Mass/volume] by Automated count Erythrocyte 13.1 % 11.5 - Normal (applies RDW-CV [facility] distribution 14.5 % to non-numeric Health width [Entitic results) System volume] by Automated count Platelets 223 130 - Normal (applies Platelet Count [facility] [#/volume] in {10^3_u 400 to non-numeric Health Plasma by L} 10^3 uL results) System Automated count Platelet mean 9.8 fl 7.4 - Normal (applies MPV [facility] volume [Entitic 10.4 fl to non-numeric Health volume] in Blood results) System by Automated count Monocytes 0.6 0.3 - Normal (applies Monocyte # [facility] [#/volume] in {10^3_u 0.9 to non-numeric Health Blood by Manual L} 10^3 uL results) System count Eosinophils 0.27 0.05 - Normal (applies Eosinophil # [facility] [#/volume] in {10^3_u 0.30 to non-numeric Health Blood L} 10^3 uL results) System Neutrophils 5.9 2.0 - Normal (applies Neutrophil # [facility] [#/volume] in {10^3_u 8.1 to non-numeric Health Body fluid L} 10^3 uL results) System Basophils 0.04 0.00 - Normal (applies Basophil # [facility] [#/volume] in {10^3_u 0.10 to non-numeric Health Blood by L} 10^3 uL results) System Automated count Lymphocyte # 1.8 1.0 - Normal (applies Lymphocyte # [facility] {10^3_u 5.5 to non-numeric Health L} 10^3 uL results) System Neutrophils/100 68.1 % 55.0 - Normal (applies Neutrophil % Reynaldo josy leukocytes in 75.0 % to non-numeric Health Blood by results) System Automated count Monocytes/100 7.0 % 6.0 - Normal (applies Monocyte % [facility] leukocytes in 9.0 % to non-numeric Health Blood results) System Eosinophils/100 3.1 % 0.0 - Normal (applies Eosinophil % [facility] josy leukocytes in 4.0 % to non-numeric Health Unspecified results) System specimen Basophils/100 0.5 % 0.0 - Normal (applies Basophil % [facility] leukocytes in 1.0 % to non-numeric Health Unspecified results) System specimen by Manual count Lymphocytes 21.0 % 21.0 - Normal (applies Lymphocyte % [facility] [#/volume] in 51.0 % to non-numeric Health Blood by results) System Automated count Immature 0.3 % 0.0 - Normal (applies Immature [facility] Granulocytes % 0.8 % to non-numeric Granulocytes % Healt h results) System Nucleated 0.0 0.0 - Normal (applies NRBC % [facility] erythrocytes {/100_W 0.0 to non-numeric Health [#/volume] in BC} /100 results) System Body fluid WBC Immature 0.03 0.00 - Normal (applies Immature [facility] Granulocytes # {10^3_u 0.09 to non-numeric Granulocytes # Healt h L} 10^3 uL results) System NRBC # 0.00 0.90 - Below low normal NRBC # [facility] {10^3_u 11.20 Health L} 10^3 uL System ID Date Data Source [id number] 09/27/2018 06:00:00 AM EST [facility] Name Value Range Interpretation Description Data Sup porting Code Source(s) Document(s ) Sodium 143 137 - Normal (applies Sodium, Serum [facility] [Moles/volume] in mmol/L 145 to non-numeric Health Serum or Plasma mmol/L results) System Potassium 4.0 3.6 - Normal (applies Potassium, [facility] [Mass/volume] in mmol/L 5.0 to non-numeric Serum Health Serum or Plasma mmol/L results) System Chloride 105 98 - Normal (applies Chloride, [facility] [Moles/volume] in mmol/L 107 to non-numeric Serum Health Serum or Plasma mmol/L results) System Carbon dioxide, 28.0 22.0 - Normal (applies CO2, Serum [facility] total mmol/L 30.0 to non-numeric Health [Moles/volume] in mmol/L results) System Serum or Plasma Total Protein 6.3 6.3 - Normal (applies Total Protein [facility] mg/dl 8.2 to non-numeric Health mg/dl results) System Glucose 69 65 - Normal (applies Glucose, [facility] [Mass/volume] in mg/dL 105 to non-numeric Serum Health Serum or Plasma mg/dL results) System Urea nitrogen 13 7 - 18 Normal (applies Blood Urea [facility] [Mass/volume] in mg/dl mg/dl to non-numeric Nitrogen, Health Serum or Plasma results) Serum System Creatinine 0.90 0.70 - Normal (applies Creatinine, [facility] [Mass/volume] in mg/dl 1.20 to non-numeric Serum Health Serum or Plasma mg/dl results) System Alkaline 61 38 - Normal (applies Alkaline [facility] phosphatase {IU/L} 126 to non-numeric Phosphatase, Health isoenzymes IU/L results) Serum System [Enzymatic activity/volume] in Serum or Plasma by Heat stability Bilirubin.total 0.5 0.2 - Normal (applies Bilirubin, [facility] [Mass/volume] in mg/dl 1.3 to non-numeric Serum Total Health Serum or Plasma mg/dl results) System Direct Bilirubin 0.2 0.0 - Normal (applies Direct [facility] mg/dl 0.4 to non-numeric Bilirubin Health mg/dl results) System Aspartate 23 5 - 40 Normal (applies Aspartate [facility] aminotransferase {IU/L} IU/L to non-numeric Transaminase, Heal th [Enzymatic results) Serum System activity/volume] in Serum or Plasma by With P-5'-P Albumin 3.7 3.9 - Below low normal Albumin, [facility] [Mass/volume] in {gm/dl} 5.0 Serum Health Serum or Plasma gm/dl System I. Phosphorus 3.3 2.5 - Normal (applies I. Phosphorus [facility] mg/dl 4.5 to non-numeric Health mg/dl results) System Alanine 12 7 - 56 Normal (applies Alanine [facility] aminotransferase {IU/L} IU/L to non-numeric Aminotransfer Heal th [Enzymatic results) ase, Serum System activity/volume] in Serum or Plasma Calcium 9.3 8.4 - Normal (applies Calcium, [facility] [Mass/volume] in mg/dl 10.2 to non-numeric Total Serum Health Serum or Plasma mg/dl results) System A/G Ratio 1.42 Normal (applies A/G Ratio [facility] to non-numeric Health results) System Urate 5.5 2.5 - Normal (applies Uric Acid, [facility] [Mass/volume] in mg/dl 7.5 to non-numeric Serum Health Serum or Plasma mg/dl results) System Anion gap in Serum 10.00 8.00 - Normal (applies Anion Gap Reynaldo josy or Plasma mmol/L 12.00 to non-numeric Health mmol/L results) System Glomerular 66.28 Normal (applies GFR [facility] filtration to non-numeric Health rate/1.73 sq results) System M.predicted [Volume Rate/Area] in Serum or Plasma by Creatinine-based formula (CKD-EPI) eGFR will provide clinicians with a more accurate indicator of renal function then the serum creatinine. The eGFR is automa tically calculated from an empiric formula (endorsed by the [employer] ion) which incorporates age, sex, and race.Clinicians may notice surprisingly low GFR's with serum creatinine valueswithin normal range- particularly in elderly wo men (with low muscle mass).In the hospital setting, the eGFR should add an element of safety in drug dosing, in assessing the risk of IV contrast administration, and in assessing vascular risk.The NKF staging system is as follows:Normal: eGFR >90 with no kidney markersStage 1: eGFR >90 with kidney markers*Stage 2: eGFR 60- 89Stage 3: eGFR 30-59Stage 4: eGFR 15-29Stage 5: eGFR <15 (usually requir ing dialysis)*Markers include: Proteinuria, Hematuria, abnormal imaging-studies, or other blood or urine test abnormalities ID Date Data Source [id number] 09/27/2018 06:00:00 AM [facility] Name Value Range Interpretation Description Data Sup porting Code Source(s) Document(s ) Magnesium 2.0 1.5 - Normal (applies Magnesium, [facility] [Mass/volume {mEq/L} 2.2 to non-numeric Serum Health Syste m ] in Serum mEq/L results) or Plasma ID Date Data Source [id number] 09/27/2018 06:00:00 AM [facility] Name Value Range Interpretation Description Data Sup porting Code Source(s) Document(s ) Valproate 6.0 "." Normal (applies Valproic Acid [facility] [Mass/volume ug/ml ug/ml to non-numeric Level, Serum Health Sy stem ] in Serum results) or Plasma Therapeutic 50 - 100Toxic >100 ug/mL ID Date Data Source [id number] 09/26/2018 03:52:00 PM [facility] Name Value Range Interpretation Description Data Sup porting Code Source(s) Document(s ) Color CLEAR Yellow Normal (applies Color [facility] to non-numeric Health results) System Appearance of YELLOW Clear Normal (applies Urine [facility] Urine to non-numeric Appearance Health results) System Specific 1.020 1.001 - Normal (applies Urine Specific [facility] gravity of 1.035 to non-numeric [facility] Urine results) System pH.. 6.5 4.6 - 8.0 Normal (applies pH.. [facility] {pH_units} pH units to non-numeric Health results) System Glucose, UA NEGATIVE < 50 Normal (applies Glucose, UA [facility] mg/dl to non-numeric Health results) System Protein TRACE < 30 Normal (applies Protein [facility] [Mass/volume] mg/dl to non-numeric Health in Serum or results) System Plasma Bilirubin NEGATIVE Negative Normal (applies Bilirubin [facility] Urine Sm to Lg to non-numeric Urine Health results) System Urobilinogen 0.2 mg/dL 0.2 - 1.0 Normal (applies Urobilinogen [facility] [Mass/volume] mg/dL to non-numeric UA Health in Urine results) System Ketones NEGATIVE Negative Normal (applies Ketones UA [facility] [Mass/volume] mg/dL to non-numeric Health in Urine results) System Nitrate+Nitrit NEGATIVE Negative Normal (applies Nitrite [facility] Neg/Pos to non-numeric Health [Mass/volume] results) System in Unspecified specimen Leukocyte MODERATE Negative Abnormal Leukocyte [facility] esterase Tr to Lg (applies to Esterase Health [Units/volume] non-numeric Concentration System in Urine results) Leukocytes > 25 0 - 2 Normal (applies White Blood [facility] [#/volume] in /HPF to non-numeric Cells Health Unspecified results) System specimen by Automated count Red Blood 10 {/HPF} 0 - 1 Normal (applies Red Blood [facility] Cells /HPF to non-numeric Cells Health results) System Bacteria 3+ 0 - 1+ Abnormal Bacteria [facility] [Presence] in /HPF (applies to Health Unspecified non-numeric System specimen results) Urine Blood MODERATE Negative Abnormal Urine Blood [facility] Sm to Lg (applies to Health non-numeric System results) ID Date Data Source [id number] 09/26/2018 03:52:00 PM EST [facility] Name Value Range Interpretation Description Data Sup porting Code Source(s) Document(s ) Leukocytes 6.9 4.8 - Normal (applies WBC Count [facility] [#/volume] in {10^3_u 10.8 to non-numeric Health Unspecified L} 10^3 uL results) System specimen by Automated count Erythrocytes 4.22 3.80 - Normal (applies RBC Count [facility] [#/volume] in {10^6_u 5.20 to non-numeric Health Blood by L} 10^6 uL results) System Automated count Hemoglobin 13.4 12.0 - Normal (applies Hemoglobin [facility] [Mass/volume] in {gm/dL} 16.0 to non-numeric Health Blood gm/dL results) System Hematocrit 41.1 % 36.0 - Normal (applies Hematocrit [facility] [Volume 46.0 % to non-numeric Health Fraction] of results) System Blood Erythrocyte mean 97.4 fl 83.0 - Normal (applies MCV [facility] corpuscular 98.0 fl to non-numeric Health volume [Entitic results) System volume] by Automated count Erythrocyte mean 31.8 pg 26.0 - Normal (applies MCH [facility] corpuscular 34.0 pg to non-numeric Health hemoglobin results) System [Entitic mass] by Automated count Erythrocyte mean 32.6 33.0 - Below low normal MCHC [facility] corpuscular {gm/dL} 37.0 Health hemoglobin gm/dL System concentration [Mass/volume] by Automated count Erythrocyte 13.1 % 11.5 - Normal (applies RDW-CV [facility] distribution 14.5 % to non-numeric Health width [Entitic results) System volume] by Automated count Platelets 229 130 - Normal (applies Platelet Count [facility] [#/volume] in {10^3_u 400 to non-numeric Health Plasma by L} 10^3 uL results) System Automated count Platelet mean 10.3 fl 7.4 - Normal (applies MPV [facility] volume [Entitic 10.4 fl to non-numeric Health volume] in Blood results) System by Automated count Monocytes 0.5 0.3 - Normal (applies Monocyte # [facility] [#/volume] in {10^3_u 0.9 to non-numeric Health Blood by Manual L} 10^3 uL results) System count Eosinophils 0.24 0.05 - Normal (applies Eosinophil # [facility] [#/volume] in {10^3_u 0.30 to non-numeric Health Blood L} 10^3 uL results) System Neutrophils 4.5 2.0 - Normal (applies Neutrophil # [facility] [#/volume] in {10^3_u 8.1 to non-numeric Health Body fluid L} 10^3 uL results) System Basophils 0.03 0.00 - Normal (applies Basophil # [facility] [#/volume] in {10^3_u 0.10 to non-numeric Health Blood by L} 10^3 uL results) System Automated count Lymphocyte # 1.6 1.0 - Normal (applies Lymphocyte # [facility] {10^3_u 5.5 to non-numeric Health L} 10^3 uL results) System Neutrophils/100 65.3 % 55.0 - Normal (applies Neutrophil % Reynaldo josy leukocytes in 75.0 % to non-numeric Health Blood by results) System Automated count Monocytes/100 6.8 % 6.0 - Normal (applies Monocyte % [facility] leukocytes in 9.0 % to non-numeric Health Blood results) System Eosinophils/100 3.5 % 0.0 - Normal (applies Eosinophil % Reynaldo josy leukocytes in 4.0 % to non-numeric Health Unspecified results) System specimen Basophils/100 0.4 % 0.0 - Normal (applies Basophil % [facility] leukocytes in 1.0 % to non-numeric Health Unspecified results) System specimen by Manual count Lymphocytes 23.7 % 21.0 - Normal (applies Lymphocyte % [facility] [#/volume] in 51.0 % to non-numeric Health Blood by results) System Automated count Immature 0.3 % 0.0 - Normal (applies Immature [facility] Granulocytes % 0.8 % to non-numeric Granulocytes % Healt h results) System Nucleated 0.0 0.0 - Normal (applies NRBC % [facility] erythrocytes {/100_W 0.0 to non-numeric Health [#/volume] in BC} /100 results) System Body fluid WBC Immature 0.02 0.00 - Normal (applies Immature [facility] Granulocytes # {10^3_u 0.09 to non-numeric Granulocytes # Healt h L} 10^3 uL results) System NRBC # 0.00 0.90 - Below low normal NRBC # [facility] {10^3_u 11.20 Health L} 10^3 uL System ID Date Data Source [id number] 09/26/2018 03:52:00 PM EST [facility] Name Value Range Interpretation Description Data Source(s ) Supporting Code Document(s ) PH* 7.385 7.310 - Normal (applies to PH* [facility] {pH_units 7.410 pH non-numeric Health System } units results) PCO2* 52.6 40.0 - Above high normal PCO2* [facility] {mm_Hg} 52.0 mm Health System Hg Base 6.40 -3.00 - Above high normal Base Excess* [facility] Excess* {mEq/L} 3.00 Health System mEq/L HCO3* 31.4 22.0 - Above high normal HCO3* [facility] mmol/L 27.0 Health System mmol/L Chloride 106 98 - 107 Normal (applies to Chloride, VB [facility] , VB mmol/L mmol/L non-numeric Health System results) Lactate. 2.6 0.5 - 2.0 Above upper panic Lactate. [facility] mmol/L mmol/L limits Health System Result Reporting|Telephone|DHEERAJ CRAWLEY/ER|1 11/27/2017 at 5:34 PMCalled to:DHEERAJ CRAWLEY/Britney Name:SEVERO SMITHReadallyn by:Jamilah CRAWLEY/ER09/26/2018 / 5:33 PM Glucose, VB 76 mg/dL 65 - 110 Normal (applies Glucose, VB [facility] mg/dL to non-numeric Health System results) Potassium, VB 3.7 mmol/L 3.6 - 5.0 Normal (applies Potassium, VB Reynaldo joys mmol/L to non-numeric Health System results) Sodium, VB 145 mmol/L 137 - 145 Normal (applies Sodium, VB [facility] mmol/L to non-numeric Health System results) Ionized 1.22 mmol/L 1.15 - 1.29 Normal (applies Ionized [facility] Calcium, VB mmol/L to non-numeric Calcium, VB Health Syst em results) O2 Saturation* 92.10 % Normal (applies O2 Saturation* [facility] to non-numeric [facility] System results) ID Date Data Source [id number] 09/26/2018 03:52:00 PM EST [facility] Name Value Range Interpretation Description Data Sup porting Code Source(s) Document(s ) Phenytoin 0.0 10.0 - Below low normal Phenytoin [facility] [Mass/volume ug/ml 20.0 Level, Serum Health System ] in Serum ug/ml or Plasma ID Date Data Source [id number] 09/26/2018 03:52:00 PM EST [facility] Name Value Range Interpretation Description Data Sup porting Code Source(s) Document(s ) Alcohol NON-DETECTE Normal (applies Alcohol Ethyl, [facility] Ethyl, D None to non-numeric Blood Health System Blood Detected results) ID Date Data Source [id number] 09/26/2018 03:52:00 PM EST [facility] Name Value Range Interpretation Description Data Sup porting Code Source(s) Document(s ) Acetaminophen < 4 10 - 30 Below low normal Acetaminophen Reynaldo josy [Mass/volume] in ug/ml Level, Serum Health Serum or Plasma System ID Date Data Source [id number] 09/26/2018 03:52:00 PM EST [facility] Name Value Range Interpretation Description Data Sup porting Code Source(s) Document(s ) Troponin I 0.01 0.00 - Normal (applies Troponin I [facility] Quantitative - ng/mL 0.04 to non-numeric Quantitative - Healt h MV Only ng/mL results) MV Only System ID Date Data Source [id number] 09/26/2018 03:52:00 PM EST [facility] Name Value Range Interpretation Description Data Sup porting Code Source(s) Document(s ) Acetylsalicylate < 4.0 2.0 - Normal (applies Salicylate [facility] [Mass/volume] in 30.0 to non-numeric Level, Serum Healt h Serum or Plasma mg/dl results) System ID Date Data Source [id number] 09/26/2018 03:52:00 PM EST [facility] Name Value Range Interpretation Description Data Sup porting Code Source(s) Document(s ) Lactic 2.43 0.50 - Above upper panic Lactic Acid, [facility] Acid, {mEq/L} 2.00 limits Plasma *[facility] Plasma mEq/L [facility] ONLY* *[facility] ONLY* Result Reporting|Telephone|DHEERAJ CRAWLEY/FELICITAS|1 11/27/2017 at 5:49 PMCalled to:DHEERAJ CRAWLEY/Britney Name:SEVERO Rocha by:Jamilah CRAWLEY/FELICITAS09/26/2018 / 5:48 PM ID Date Data Source [id number] 09/26/2018 03:52:00 PM EST [facility] Name Value Range Interpretation Description Data Sup porting Code Source(s) Document(s ) Amphetamine Negative Negative Normal (applies Amphetamine [facility] [Mass/volume] ng/ml to non-numeric Level, Urine Health in Urine results) System Cut-off = 1000 ng/mL Barbiturates Negative Negative Normal (applies Barbiturate [facility] [Mass/volume] in ng/ml to non-numeric Screen, Urine Heal th System Urine by Screen results) method Cut-off = 200 ng/mL Benzodiazepines Negative Negative Normal Benzodiazepines, [facility] [Mass/volume] in ng/mL (applies to Urine Health Urine non-numeric System results) Cut-off = 200 ng/mL Cocaine Positive Negative Abnormal Cocaine [facility] metabolites.other ng/ml (applies to Metabolite Health Sy stem [Mass/volume] in non-numeric Screen, Urine Urine results) Cut-off = 300 ng/mL Methadone Negative Negative Normal (applies Methadone [facility] [Mass/volume] in ng/mL to non-numeric Level, Urine Healt h System Urine results) Cut-off = 300 ng/mL Opiate 300, Negative Negative ng/ml Normal (applies to Opiate 300, [facility] Urine non-numeric Urine Health System results) Cut-off = 300 ng/mL Phencyclidine Positive Negative Abnormal Phencyclidine, [facility] [Mass/volume] in ng/ml (applies to Urine Health Syst em Urine non-numeric results) Cut-off = 25 ng/mL Cannabinoid Negative Negative Normal (applies Cannabinoid [facility] (THC) ng/mL to non-numeric (THC) Health System results) Cutt-off = 50These results are for medic al treatment only. The positive findings are unconfirmed. Request confirmatory/quanti tative test if needed. ID Date Data Source [id number] 09/26/2018 03:52:00 PM EST [facility] Name Value Range Interpretation Description Data Sup porting Code Source(s) Document(s ) Creatine 279 30 - 135 Above high normal Creatine [facility] kinase.MB {IU/L} IU/L Kinase, Serum Health System [Mass/volum e] in Serum or Plasma ID Date Data Source [id number] 08/29/2018 10:20:00 AM [facility] -0500 Name Value Range Interpretation Description Data Sup porting Code Source(s) Document(s ) Valproate 50-120 Below low normal <content [facility] [Mass/volume] styleCode="Bold Rosalinda in Serum or ">Valproic Acid Medical Plasma </content>< Center 10.0 UG/ML L<content styleCode="Ital ics"> (50-120 UG/ML)</content > ID Date Data Source [id number] 08/29/2018 09:50:00 AM [facility] 0500 Name Value Range Interpretation Description Data Sup porting Code Source(s) Document(s ) Leukocytes 4.4-11.0 <content [facility] [#/volume] in styleCode="Bold Rosalinda Blood by ">White Blood Medical Automated count Cell Count Center </content>4.61 KCUMM<content styleCode="Ital ics"> (4.4-11.0 KCUMM)</content > Erythrocytes 4.0-5.1 Below low normal <content [facility] [#/volume] in styleCode="Bold Rosalinda Blood by ">Red Blood Medical Automated count Cell Count Center </content>3.72 MCUMM L<content styleCode="Ital ics"> (4.0-5.1 MCUMM)</content > Erythrocyte mean 80.0-100 <content [facility] corpuscular .0 styleCode="Bold Rosalinda volume [Entitic ">Mean Medical volume] by Corpuscular Center Automated count Volume </content>97.0 FL<content styleCode="Ital ics"> (80.0-100.0 FL)</content> Erythrocyte mean 32.0-37. <content [facility] corpuscular 0 styleCode="Bold Rosalinda hemoglobin ">Mean Corpus. Medical concentration Hgb Center [Mass/volume] by Concentration Automated count (MCHC) </content>33.5 G/DL<content styleCode="Ital ics"> (32.0-37.0 G/DL)</content> Hemoglobin 12.3-16. Below low normal <content [facility] [Mass/volume] in 0 styleCode="Bold Rosalinda Blood ">Hemoglobin Medical </content>12.1 Center G/DL L<content styleCode="Ital ics"> (12.3-16.0 G/DL)</content> Erythrocyte mean 26.0-34. <content [facility] corpuscular 0 styleCode="Bold Rosalinda hemoglobin ">Mean Medical [Entitic mass] Corposcular Center by Automated Hemoglobin count </content>32.5 PG<content styleCode="Ital ics"> (26.0-34.0 PG)</content> Erythrocyte 11.5-14. <content [facility] distribution 5 styleCode="Bold Rosalinda width [Ratio] by ">Red Cell Medical Automated count Distribution Center Width </content>13.7 %<content styleCode="Ital ics"> (11.5-14.5 %)</content> Hematocrit 36.0-46. <content [facility] [Volume 0 styleCode="Bold Rosalinda Fraction] of ">Hematocrit Medical Blood by </content>36.1 Center Automated count %<content styleCode="Ital ics"> (36.0-46.0 %)</content> Neutrophils 36-66 Above high <content [facility] [#/volume] in normal styleCode="Bold Rosalinda Blood by ">Neutrophil Medical Automated count </content>83.3 Center % H<content styleCode="Ital ics"> (36-66 %)</content> Platelets 130-400 <content [facility] [#/volume] in styleCode="Bold Rosalinda Blood by ">Platelet Medical Automated count Count Center </content>204 KCUMM<content styleCode="Ital ics"> (130-400 KCUMM)</content > Lymphocytes 24.0-44. Below low normal <content [facility] [#/volume] in 0 styleCode="Bold Rosalinda Blood by ">Lymphocyte Medical Automated count </content>14.3 Center % L<content styleCode="Ital ics"> (24.0-44.0 %)</content> UNK 1.6-7.3 <content [facility] styleCode="Bold Rosalinda ">Neutrophil Medical Count Center </content>3.84 KCUMM<content styleCode="Ital ics"> (1.6-7.3 KCUMM)</content > UNK 1.0-4.8 Below low normal <content [facility] styleCode="Bold Rosalinda ">Lymphocyte Medical Count Center </content>0.66 KCUMM L<content styleCode="Ital ics"> (1.0-4.8 KCUMM)</content > Platelet mean 8.0-11.0 <content [facility] volume [Entitic styleCode="Bold Rosalinda volume] in Blood ">Mean Platelet Medical by Automated Volume Center count </content>9.6 FL<content styleCode="Ital ics"> (8.0-11.0 FL)</content> UNK 0.2-0.9 Below low normal <content [facility] styleCode="Bold Rosalinda ">Monocyte Medical Count Center </content>0.09 KCUMM L<content styleCode="Ital ics"> (0.2-0.9 KCUMM)</content > Monocytes 3.0-10.0 Below low normal <content [facility] [#/volume] in styleCode="Bold Rosalinda Blood by ">Monocyte Medical Automated count </content>2.0 % Center L<content styleCode="Ital ics"> (3.0-10.0 %)</content> UNK 0.0-0.6 <content [facility] styleCode="Bold Rosalinda ">Eosinophil Medical Count Center </content>0.00 KCUMM<content styleCode="Ital ics"> (0.0-0.6 KCUMM)</content > Basophils 0.0-1.0 <content [facility] [#/volume] in styleCode="Bold Rosalinda Blood by ">Basophil Medical Automated count </content>0.2 Center %<content styleCode="Ital ics"> (0.0-1.0 %)</content> Eosinophils 0-5.0 <content [facility] [#/volume] in styleCode="Bold Rosalinda Blood by ">Eosinophil Medical Automated count </content>0.0 Center %<content styleCode="Ital ics"> (0-5.0 %)</content> UNK 0.0-0.3 <content [facility] styleCode="Bold Rosalinda ">Basophil Medical Count Center </content>0.01 KCUMM<content styleCode="Ital ics"> (0.0-0.3 KCUMM)</content > UNK 0.0 <content [facility] styleCode="Bold Rosalinda ">Nucleated Red Medical Blood Cell Center Count </content>0.00 KCUMM<content styleCode="Ital ics"> (0.0 KCUMM)</content > UNK < 1 <content [facility] styleCode="Bold Rosalinda ">Immature Medical Granulocyte Center Ratio </content>0.2 %<content styleCode="Ital ics"> (< 1 %)</content> UNK 0 <content [facility] styleCode="Bold Rosalinda ">Nucleated Red Medical Blood Cell Center </content>0.0 /100<content styleCode="Ital ics"> (0 /100)</content> UNK 0-0.1 <content [facility] styleCode="Bold Rosalinda ">Immature Medical Granulocyte Center Count </content>0.01 KCUMM<content styleCode="Ital ics"> (0-0.1 KCUMM)</content > ID Date Data Source GFR(Creatinine).[id number] 08/29/2018 09:50:00 AM [facility] 0-0500 Name Value Range Interpretation Code Description Data Suha rce(s) Supporting Document(s ) UNK > 60 <content [facility] styleCode="Bold"> Medical Cent er EGFR </content>114 GFR<content styleCode="Italic s"> (> 60 GFR)</content> ID Date Data Source [facility].[id number] 08/29/2018 09:50:00 AM EST [facility] Name Value Range Interpretation Description Data Sup porting Code Source(s) Document(s ) Chloride 98-107 <content [facility] [Moles/volume] styleCode="Shilpa Rosalinda in Serum or d">Chloride Medical Plasma </content>105 Center MEQ/L<content styleCode="Xiao lics"> (98-107 MEQ/L)</conten t> Sodium 137-145 <content [facility] [Moles/volume] styleCode="Shilpa Rosalinda in Serum or d">Sodium Medical Plasma </content>140 Center MEQ/L<content styleCode="Xiao lics"> (137-145 MEQ/L)</conten t> Potassium 3.5-5.3 <content [facility] [Moles/volume] styleCode="Shilpa Lugos in Serum or d">Potassium Medical Plasma </content>4.3 Center MEQ/L<content styleCode="Xiao lics"> (3.5-5.3 MEQ/L)</conten t> Carbon 22-30 <content [facility] dioxide, total styleCode="Shilpa Lugos [Moles/volume] d">[facility] in Serum or Dioxide [facility] Plasma </content>28 MEQ/L<content styleCode="Xiao lics"> (22-30 MEQ/L)</conten t> UNK 7-17 Above high normal <content [facility] styleCode="Shilpa Lugos d">BUN Medical </content>18 Center MG/DL H<content styleCode="Xiao lics"> (7-17 MG/DL)</conten t> Glucose 74-106 Above high normal <content [facility] [Mass/volume] styleCode="Shilpa Lugos in Serum or d">Glucose Medical Plasma </content>110 Center MG/DL H<content styleCode="Xiao lics"> (74-106 MG/DL)</conten t> Calcium 8.4-10.2 <content [facility] [Mass/volume] styleCode="Shilpa Lugos in Serum or d">Calcium Medical Plasma </content>9.4 Center MG/DL<content styleCode="Xiao lics"> (8.4-10.2 MG/DL)</conten t> UNK > 60 <content [facility] styleCode="Shilpa Lugos d">EGFR Medical </content>114 Center GFR<content styleCode="Xiao lics"> (> 60 GFR)</content> Creatinine 0.5-1.3 <content [facility] [Mass/volume] styleCode="Shilpa Lugos in Serum or d">Creatinine Medical Plasma </content>0.7 Center MG/DL<content styleCode="Xiao lics"> (0.5-1.3 MG/DL)</conten t> ID Date Data Source [id number] 06/07/2018 05:31:00 AM EDT [facility] alth System Name Value Range Interpretation Description Data Sup porting Code Source(s) Document(s ) Valproate 20.8 "." Normal (applies Valproic Acid [facility] [Mass/volume ug/ml ug/ml to non-numeric Level, Serum Health Sy stem ] in Serum results) or Plasma Therapeutic 50 - 100Toxic >100 ug/mL ID Date Data Source [id number] 06/07/2018 05:31:00 AM EDT [facility] System Name Value Range Interpretation Description Data Sup porting Code Source(s) Document(s ) Phenytoin 1.3 10.0 - Below low normal Phenytoin [facility] [Mass/volume ug/ml 20.0 Level, Serum Health System ] in Serum ug/ml or Plasma ID Date Data Source [id number] 06/07/2018 04:50:00 AM EDT [facility] System Name Value Range Interpretation Description Data Sup porting Code Source(s) Document(s ) Color YELLOW Yellow Normal (applies Color [facility] to non-numeric Health results) System Appearance of CLEAR Clear Normal (applies Urine [facility] Urine to non-numeric Appearance Health results) System Specific 1.010 1.001 - Normal (applies Urine Specific [facility] gravity of 1.035 to non-numeric [facility] Urine results) System pH.. 7.0 4.6 - 8.0 Normal (applies pH.. [facility] {pH_units} pH units to non-numeric Health results) System Glucose, UA NEGATIVE < 50 Normal (applies Glucose, UA [facility] mg/dl to non-numeric Health results) System Protein TRACE < 30 Normal (applies Protein [facility] [Mass/volume] mg/dl to non-numeric Health in Serum or results) System Plasma Bilirubin NEGATIVE Negative Normal (applies Bilirubin [facility] Urine Sm to Lg to non-numeric Urine Health results) System Urobilinogen 0.2 mg/dL 0.2 - 1.0 Normal (applies Urobilinogen [facility] [Mass/volume] mg/dL to non-numeric UA Health in Urine results) System Ketones NEGATIVE Negative Normal (applies Ketones UA [facility] [Mass/volume] mg/dL to non-numeric Health in Urine results) System Nitrate+Nitrit NEGATIVE Negative Normal (applies Nitrite [facility] Neg/Pos to non-numeric Health [Mass/volume] results) System in Unspecified specimen Leukocyte NEGATIVE Negative Normal (applies Leukocyte [facility] esterase Tr to Lg to non-numeric Esterase Health [Units/volume] results) Concentration System in Urine Leukocytes 0 {/HPF} 0 - 2 Normal (applies White Blood [facility] [#/volume] in /HPF to non-numeric Cells Health Unspecified results) System specimen by Automated count Red Blood 40 {/HPF} 0 - 1 Normal (applies Red Blood [facility] Cells /HPF to non-numeric Cells Health results) System Urine Blood MODERATE Negative Abnormal Urine Blood [facility] Sm to Lg (applies to Health non-numeric System results) ID Date Data Source [id number] 06/07/2018 04:50:00 AM EDT [facility] Name Value Range Interpretation Description Data Sup porting Code Source(s) Document(s ) Leukocytes 9.6 4.8 - Normal (applies WBC Count [facility] [#/volume] in {10^3_u 10.8 to non-numeric Health Unspecified L} 10^3 uL results) System specimen by Automated count Erythrocytes 4.44 3.80 - Normal (applies RBC Count [facility] [#/volume] in {10^6_u 5.20 to non-numeric Health Blood by L} 10^6 uL results) System Automated count Hemoglobin 14.2 12.0 - Normal (applies Hemoglobin [facility] [Mass/volume] in {gm/dL} 16.0 to non-numeric Health Blood gm/dL results) System Hematocrit 42.3 % 36.0 - Normal (applies Hematocrit [facility] [Volume 46.0 % to non-numeric Health Fraction] of results) System Blood Erythrocyte mean 95.3 fl 83.0 - Normal (applies MCV [facility] corpuscular 98.0 fl to non-numeric Health volume [Entitic results) System volume] by Automated count Erythrocyte mean 32.0 pg 26.0 - Normal (applies MCH [facility] corpuscular 34.0 pg to non-numeric Health hemoglobin results) System [Entitic mass] by Automated count Erythrocyte mean 33.6 33.0 - Normal (applies MCHC [facility] corpuscular {gm/dL} 37.0 to non-numeric Health hemoglobin gm/dL results) System concentration [Mass/volume] by Automated count Erythrocyte 13.1 % 11.5 - Normal (applies RDW-CV [facility] distribution 14.5 % to non-numeric Health width [Entitic results) System volume] by Automated count Platelets 280 130 - Normal (applies Platelet Count [facility] [#/volume] in {10^3_u 400 to non-numeric Health Plasma by L} 10^3 uL results) System Automated count Platelet mean 10.1 fl 7.4 - Normal (applies MPV [facility] volume [Entitic 10.4 fl to non-numeric Health volume] in Blood results) System by Automated count Monocytes 0.9 0.3 - Above high Monocyte # [facility] [#/volume] in {10^3_u 0.9 normal Health Blood by Manual L} 10^3 uL System count Eosinophils 0.36 0.05 - Above high Eosinophil # [facility] [#/volume] in {10^3_u 0.30 normal Health Blood L} 10^3 uL System Neutrophils 5.7 2.0 - Normal (applies Neutrophil # [facility] [#/volume] in {10^3_u 8.1 to non-numeric Health Body fluid L} 10^3 uL results) System Basophils 0.05 0.00 - Normal (applies Basophil # [facility] [#/volume] in {10^3_u 0.10 to non-numeric Health Blood by L} 10^3 uL results) System Automated count Lymphocyte # 2.6 1.0 - Normal (applies Lymphocyte # [facility] {10^3_u 5.5 to non-numeric Health L} 10^3 uL results) System Neutrophils/100 58.8 % 55.0 - Normal (applies Neutrophil % Reynaldo josy leukocytes in 75.0 % to non-numeric Health Blood by results) System Automated count Monocytes/100 9.6 % 6.0 - Above high Monocyte % [facility] leukocytes in 9.0 % normal Health Blood System Eosinophils/100 3.7 % 0.0 - Normal (applies Eosinophil % Reynaldo josy leukocytes in 4.0 % to non-numeric Health Unspecified results) System specimen Basophils/100 0.5 % 0.0 - Normal (applies Basophil % [facility] leukocytes in 1.0 % to non-numeric Health Unspecified results) System specimen by Manual count Lymphocytes 27.1 % 21.0 - Normal (applies Lymphocyte % [facility] [#/volume] in 51.0 % to non-numeric Health Blood by results) System Automated count Immature 0.3 % 0.0 - Normal (applies Immature [facility] Granulocytes % 0.8 % to non-numeric Granulocytes % Healt h results) System Nucleated 0.0 0.0 - Normal (applies NRBC % [facility] erythrocytes {/100_W 0.0 to non-numeric Health [#/volume] in BC} /100 results) System Body fluid WBC Immature 0.03 0.00 - Normal (applies Immature [facility] Granulocytes # {10^3_u 0.09 to non-numeric Granulocytes # Healt h L} 10^3 uL results) System NRBC # 0.00 0.90 - Below low normal NRBC # [facility] {10^3_u 11.20 Health L} 10^3 uL System ID Date Data Source [id number] 06/07/2018 04:50:00 AM EDT [facility] Name Value Range Interpretation Description Data Sup porting Code Source(s) Document(s ) Sodium 143 137 - Normal (applies Sodium, Serum [facility] [Moles/volume] in mmol/L 145 to non-numeric Health Serum or Plasma mmol/L results) System Potassium 4.3 3.6 - Normal (applies Potassium, [facility] [Mass/volume] in mmol/L 5.0 to non-numeric Serum Health Serum or Plasma mmol/L results) System Chloride 104 98 - Normal (applies Chloride, [facility] [Moles/volume] in mmol/L 107 to non-numeric Serum Health Serum or Plasma mmol/L results) System Carbon dioxide, 25.0 22.0 - Normal (applies CO2, Serum [facility] total mmol/L 30.0 to non-numeric Health [Moles/volume] in mmol/L results) System Serum or Plasma Total Protein 7.4 6.3 - Normal (applies Total Protein [facility] mg/dl 8.2 to non-numeric Health mg/dl results) System Glucose 84 65 - Normal (applies Glucose, [facility] [Mass/volume] in mg/dL 105 to non-numeric Serum Health Serum or Plasma mg/dL results) System Urea nitrogen 12 7 - 18 Normal (applies Blood Urea [facility] [Mass/volume] in mg/dl mg/dl to non-numeric Nitrogen, Health Serum or Plasma results) Serum System Creatinine 1.00 0.70 - Normal (applies Creatinine, [facility] [Mass/volume] in mg/dl 1.20 to non-numeric Serum Health Serum or Plasma mg/dl results) System Alkaline 79 38 - Normal (applies Alkaline [facility] phosphatase {IU/L} 126 to non-numeric Phosphatase, Health isoenzymes IU/L results) Serum System [Enzymatic activity/volume] in Serum or Plasma by Heat stability Bilirubin.total 0.2 0.2 - Normal (applies Bilirubin, [facility] [Mass/volume] in mg/dl 1.3 to non-numeric Serum Total Health Serum or Plasma mg/dl results) System Direct Bilirubin 0.1 0.0 - Normal (applies Direct [facility] mg/dl 0.4 to non-numeric Bilirubin Health mg/dl results) System Aspartate 23 5 - 40 Normal (applies Aspartate [facility] aminotransferase {IU/L} IU/L to non-numeric Transaminase, Heal th [Enzymatic results) Serum System activity/volume] in Serum or Plasma by With P-5'-P Albumin 4.4 3.9 - Normal (applies Albumin, [facility] [Mass/volume] in {gm/dl} 5.0 to non-numeric Serum Health Serum or Plasma gm/dl results) System I. Phosphorus 3.2 2.5 - Normal (applies I. Phosphorus [facility] mg/dl 4.5 to non-numeric Health mg/dl results) System Alanine 21 7 - 56 Normal (applies Alanine [facility] aminotransferase {IU/L} IU/L to non-numeric Aminotransfer Heal th [Enzymatic results) ase, Serum System activity/volume] in Serum or Plasma Calcium 9.5 8.4 - Normal (applies Calcium, [facility] [Mass/volume] in mg/dl 10.2 to non-numeric Total Serum Health Serum or Plasma mg/dl results) System A/G Ratio 1.47 Normal (applies A/G Ratio [facility] to non-numeric Health results) System Urate 3.9 2.5 - Normal (applies Uric Acid, [facility] [Mass/volume] in mg/dl 7.5 to non-numeric Serum Health Serum or Plasma mg/dl results) System Anion gap in Serum 14.00 8.00 - Above high Anion Gap [facility] or Plasma mmol/L 12.00 normal Health mmol/L System Glomerular 58.76 Normal (applies GFR [facility] filtration to non-numeric Health rate/1.73 sq results) System M.predicted [Volume Rate/Area] in Serum or Plasma by Creatinine-based formula (CKD-EPI) eGFR will provide clinicians with a more accurate indicator of renal function then the serum creatinine. The eGFR is automa tically calculated from an empiric formula (endorsed by the National [employer] ion) which incorporates age, sex, and race.Clinicians may notice surprisingly low GFR's with serum creatinine valueswithin normal range- particularly in elderly wo men (with low muscle mass).In the hospital setting, the eGFR should add an element of safety in drug dosing, in assessing the risk of IV contrast administration, and in assessing vascular risk.The NKF staging system is as follows:Normal: eGFR >90 with no kidney markersStage 1: eGFR >90 with kidney markers*Stage 2: eGFR 60- 89Stage 3: eGFR 30-59Stage 4: eGFR 15-29Stage 5: eGFR <15 (usually requir ing dialysis)*Markers include: Proteinuria, Hematuria, abnormal imaging-studies, or other blood or urine test abnormalities ID Date Data Source [id number] 06/07/2018 04:50:00 AM EDT Nomi carrillo System Name Value Range Interpretation Description Data Source(s ) Supporting Code Document(s ) Alcohol < 9.9 Normal (applies to Alcohol Ethyl, [facility] Ethyl, non-numeric Blood [facility] System Blood results) None Detected ID Date Data Source [id number] 06/07/2018 04:50:00 AM EDT [facility] alth System Name Value Range Interpretation Description Data Sup porting Code Source(s) Document(s ) Lactic 2.54 0.70 - Above high normal Lactic Acid, [facility] Acid, {mEq/L} 2.10 Plasma *[facility] Plasma mEq/L JEREYM ONLY* *[facility] JEREMY ONLY* ID Date Data Source [id number] 06/07/2018 04:50:00 AM EDT [facility] System Name Value Range Interpretation Description Data Sup porting Code Source(s) Document(s ) Amphetamine Negative Negative Normal (applies Amphetamine [facility] [Mass/volume] ng/ml to non-numeric Level, Urine Health in Urine results) System Cut-off = 1000 ng/mL Barbiturates Negative Negative Normal (applies Barbiturate [facility] [Mass/volume] in ng/ml to non-numeric Screen, Urine [facility] System Urine by Screen results) method Cut-off = 200 ng/mL Benzodiazepines Negative Negative Normal Benzodiazepines, [facility] [Mass/volume] in ng/mL (applies to Urine Health Urine non-numeric System results) Cut-off = 200 ng/mL Cocaine Positive Negative Abnormal Cocaine [facility] metabolites.other ng/ml (applies to Metabolite Health Sy stem [Mass/volume] in non-numeric Screen, Urine Urine results) Cut-off = 300 ng/mL Methadone Negative Negative Normal (applies Methadone [facility] [Mass/volume] in ng/mL to non-numeric Level, [facility]) Cut-off = 300 ng/mL Opiate 300, Negative Negative ng/ml Normal (applies to Opiate 300, [facility] Urine non-numeric Urine Health System results) Cut-off = 300 ng/mL Phencyclidine Positive Negative Abnormal Phencyclidine, [facility] [Mass/volume] in ng/ml (applies to Urine Health Syst em Urine non-numeric results) Cut-off = 25 ng/mL Cannabinoid Negative Negative Normal (applies Cannabinoid [facility] (THC) ng/mL to non-numeric (THC) Health System results) Cutt-off = 50These results are for medic al treatment only. The positive findings are unconfirmed. Request confirmatory/quanti tative test if needed. ID Date Data Source [id number] 06/07/2018 04:28:00 AM EDT [facility] Name Value Range Interpretation Description Data Sup porting Code Source(s) Document(s ) PH* 7.383 7.310 - Normal (applies PH* [facility] {pH_unit 7.410 pH to non-numeric Health System s} units results) PCO2* 49.1 40.0 - Normal (applies PCO2* [facility] {mm_Hg} 52.0 mm to non-numeric Health System Hg results) Base 4.20 -3.00 - Above high normal Base Excess* [facility] Excess* {mEq/L} 3.00 Health System mEq/L HCO3* 29.2 22.0 - Above high normal HCO3* [facility] mmol/L 27.0 Health System mmol/L Chloride, 105 98 - 107 Normal (applies Chloride, VB [facility] VB mmol/L mmol/L to non-numeric Health System results) Lactate. 2.3 0.7 - Above high normal Lactate. [facility] mmol/L 2.1 Health System mmol/L Glucose, VB 99 mg/dL 65 - 110 Normal (applies Glucose, VB [facility] mg/dL to non-numeric Health System results) Potassium, 4.5 3.6 - Normal (applies Potassium, VB [facility] VB mmol/L 5.0 to non-numeric Health System mmol/L results) Sodium, VB 141 137 - Normal (applies Sodium, VB [facility] mmol/L 145 to non-numeric Health System mmol/L results) Ionized 1.18 1.15 - Normal (applies Ionized [facility] Calcium, VB mmol/L 1.29 to non-numeric Calcium, VB Health Syst em mmol/L results) O2 48.10 % Normal (applies O2 Saturation* [facility] Saturation* to non-numeric Health System results) ID Date Data Source [id number] 03/02/2018 03:22:00 PM EDT Nomi Blackman [facility] System Name Value Range Interpretation Description Data Sup porting Code Source(s) Document(s ) Cancelled [facility] Test Urine, check Test Urine, Health Visibility Accession Visibility System Color [id number] Color Complete Complete ID Date Data Source [id number] 03/02/2018 01:03:00 PM EDT [facility]aldoCeros Yehuda alth System Name Value Range Interpretation Description Data Sup porting Code Source(s) Document(s ) Sodium 142 137 - Normal (applies Sodium, Serum [facility] [Moles/volum mmol/L 145 to non-numeric Health Syste m e] in Serum mmol/L results) or Plasma Potassium 4.2 3.6 - Normal (applies Potassium, [facility] [Mass/volume mmol/L 5.0 to non-numeric Serum Health Syste m ] in Serum mmol/L results) or Plasma spec. is slightly hemolysed Chloride 107 mmol/L 98 - 107 Normal (applies Chloride, [facility] [Moles/volume] in mmol/L to non-numeric Serum Health System Serum or Plasma results) Carbon dioxide, 25.0 22.0 - Normal (applies CO2, Serum [facility] total [Moles/volume] mmol/L 30.0 to non-numeric [facility] System in Serum or Plasma mmol/L results) Total Protein 6.2 mg/dl 6.3 - 8.2 Below low Total Protein [facility] mg/dl normal Health System Glucose 70 mg/dL 65 - 105 Normal (applies Glucose, Serum [facility] [Mass/volume] in mg/dL to non-numeric [facility] Serum or Plasma results) Urea nitrogen 16 mg/dl 7 - 18 Normal (applies Blood Urea [facility] [Mass/volume] in mg/dl to non-numeric Nitrogen, [facility] Serum or Plasma results) Serum Creatinine 0.90 mg/dl 0.70 - Normal (applies Creatinine, [facility] [Mass/volume] in 1.20 mg/dl to non-numeric Serum [facility] System Serum or Plasma results) Alkaline phosphatase 55 {IU/L} 38 - 126 Normal (applies Alkaline [facility] isoenzymes IU/L to non-numeric Phosphatase, [facility] em [Enzymatic results) Serum activity/volume] in Serum or Plasma by Heat stability Bilirubin.total 0.4 mg/dl 0.2 - 1.3 Normal (applies Bilirubin, [facility] [Mass/volume] in mg/dl to non-numeric Serum Total [facility] System Serum or Plasma results) Direct Bilirubin 0.2 mg/dl 0.0 - 0.4 Normal (applies Direct [facility] mg/dl to non-numeric Bilirubin Health System results) Aspartate 22 {IU/L} 5 - 40 Normal (applies Aspartate [facility] aminotransferase IU/L to non-numeric Transaminase, [facility] System [Enzymatic results) Serum activity/volume] in Serum or Plasma by With P-5'-P Albumin 3.6 3.9 - 5.0 Below low Albumin, Serum [facility] [Mass/volume] in {gm/dl} gm/dl normal Health System Serum or Plasma I. Phosphorus 2.6 mg/dl 2.5 - 4.5 Normal (applies I. Phosphorus [facility] mg/dl to non-numeric Health System results) Alanine 17 {IU/L} 7 - 56 Normal (applies Alanine [facility] aminotransferase IU/L to non-numeric Aminotransfera [facility] System [Enzymatic results) se, Serum activity/volume] in Serum or Plasma Calcium 8.8 mg/dl 8.4 - 10.2 Normal (applies Calcium, Total [facility] [Mass/volume] in mg/dl to non-numeric Serum Health S ystem Serum or Plasma results) A/G Ratio 1.38 Normal (applies A/G Ratio [facility] to non-numeric Health System results) Urate [Mass/volume] 4.7 mg/dl 2.5 - 7.5 Normal (applies Uric Acid, [facility] in Serum or Plasma mg/dl to non-numeric Serum Health System results) Anion gap in Serum 10.00 8.00 - Normal (applies Anion Gap Reynaldo josy or Plasma mmol/L 12.00 to non-numeric Health System mmol/L results) Glomerular 66.43 Normal (applies GFR [facility] filtration rate/1.73 to non-numeric [facility] th System sq M.predicted results) [Volume Rate/Area] in Serum or Plasma by Creatinine-based formula (CKD-EPI) eGFR will provide clinicians with a more accurate indicator of renal function then the serum creatinine. The eGFR is automa tically calculated from an empiric formula (endorsed by the National Kid[employer] ion) which incorporates age, sex, and race.Clinicians may notice surprisingly low GFR's with serum creatinine valueswithin normal range- particularly in elderly wo men (with low muscle mass).In the hospital setting, the eGFR should add an element of safety in drug dosing, in assessing the risk of IV contrast administration, and in assessing vascular risk.The NKF staging system is as follows:Normal: eGFR >90 with no kidney markersStage 1: eGFR >90 with kidney markers*Stage 2: eGFR 60- 89Stage 3: eGFR 30-59Stage 4: eGFR 15-29Stage 5: eGFR <15 (usually requir ing dialysis)*Markers include: Proteinuria, Hematuria, abnormal imaging-studies, or other blood or urine test abnormalities ID Date Data Source [id number] 03/02/2018 01:03:00 PM EDT [facility] alth System Name Value Range Interpretation Description Data Sup porting Code Source(s) Document(s ) Creatine 290 30 - 135 Above high normal Creatine [facility] kinase.MB {IU/L} IU/L Kinase, Serum Health System [Mass/volum e] in Serum or Plasma ID Date Data Source [id number] 03/02/2018 11:32:00 AM EDT [facility] Name Value Range Interpretation Description Data Sup porting Code Source(s) Document(s ) Negative Normal (applies Test [facility] Test Urine, to non-numeric Urine, Health System Visibility results) Visibility Color Color Complete Complete This test can detect HCG urine concentra tion of 25mIU/ml or greater. Negative result at 4 minute reading does not rule out ea rly . If clinically indicated, serum quantitative HCG test should be ordered. ID Date Data Source [id number] 03/02/2018 11:32:00 AM EDT [facility] Name Value Range Interpretation Description Data Sup porting Code Source(s) Document(s ) Leukocytes 10.1 4.8 - Normal (applies WBC Count [facility] [#/volume] in {10^3_u 10.8 to non-numeric Health Unspecified L} 10^3 uL results) System specimen by Automated count Erythrocytes 4.76 3.80 - Normal (applies RBC Count [facility] [#/volume] in {10^6_u 5.20 to non-numeric Health Blood by L} 10^6 uL results) System Automated count Hemoglobin 15.0 12.0 - Normal (applies Hemoglobin [facility] [Mass/volume] in {gm/dL} 16.0 to non-numeric Health Blood gm/dL results) System Hematocrit 45.6 % 36.0 - Normal (applies Hematocrit [facility] [Volume 46.0 % to non-numeric Health Fraction] of results) System Blood Erythrocyte mean 95.8 fl 83.0 - Normal (applies MCV [facility] corpuscular 98.0 fl to non-numeric Health volume [Entitic results) System volume] by Automated count Erythrocyte mean 31.5 pg 26.0 - Normal (applies MCH [facility] corpuscular 34.0 pg to non-numeric Health hemoglobin results) System [Entitic mass] by Automated count Erythrocyte mean 32.9 33.0 - Below low normal MCHC [facility] corpuscular {gm/dL} 37.0 Health hemoglobin gm/dL System concentration [Mass/volume] by Automated count Erythrocyte 13.3 % 11.5 - Normal (applies RDW-CV [facility] distribution 14.5 % to non-numeric Health width [Entitic results) System volume] by Automated count Platelets 301 130 - Normal (applies Platelet Count [facility] [#/volume] in {10^3_u 400 to non-numeric Health Plasma by L} 10^3 uL results) System Automated count Platelet mean 10.2 fl 7.4 - Normal (applies MPV [facility] volume [Entitic 10.4 fl to non-numeric Health volume] in Blood results) System by Automated count Monocytes 0.7 0.3 - Normal (applies Monocyte # [facility] [#/volume] in {10^3_u 0.9 to non-numeric Health Blood by Manual L} 10^3 uL results) System count Eosinophils 0.36 0.05 - Above high Eosinophil # [facility] [#/volume] in {10^3_u 0.30 normal Health Blood L} 10^3 uL System Neutrophils 6.9 2.0 - Normal (applies Neutrophil # [facility] [#/volume] in {10^3_u 8.1 to non-numeric Health Body fluid L} 10^3 uL results) System Basophils 0.04 0.00 - Normal (applies Basophil # [facility] [#/volume] in {10^3_u 0.10 to non-numeric Health Blood by L} 10^3 uL results) System Automated count Lymphocyte # 2.1 1.0 - Normal (applies Lymphocyte # [facility] {10^3_u 5.5 to non-numeric Health L} 10^3 uL results) System Neutrophils/100 68.8 % 55.0 - Normal (applies Neutrophil % Reynaldo josy leukocytes in 75.0 % to non-numeric Health Blood by results) System Automated count Monocytes/100 6.5 % 6.0 - Normal (applies Monocyte % [facility] leukocytes in 9.0 % to non-numeric Health Blood results) System Eosinophils/100 3.6 % 0.0 - Normal (applies Eosinophil % Reynaldo josy leukocytes in 4.0 % to non-numeric Health Unspecified results) System specimen Basophils/100 0.4 % 0.0 - Normal (applies Basophil % [facility] leukocytes in 1.0 % to non-numeric Health Unspecified results) System specimen by Manual count Lymphocytes 20.3 % 21.0 - Below low normal Lymphocyte % [facility] [#/volume] in 51.0 % Health Blood by System Automated count Immature 0.4 % 0.0 - Normal (applies Immature [facility] Granulocytes % 0.8 % to non-numeric Granulocytes % [facility] results) System Nucleated 0.0 0.0 - Normal (applies NRBC % [facility] erythrocytes {/100_W 0.0 to non-numeric Health [#/volume] in BC} /100 results) System Body fluid WBC Immature 0.04 0.00 - Normal (applies Immature [facility] Granulocytes # {10^3_u 0.09 to non-numeric Granulocytes # [facility] L} 10^3 uL results) System NRBC # 0.00 0.90 - Below low normal NRBC # [facility] {10^3_u 11.20 Health L} 10^3 uL System ID Date Data Source [id number] 03/02/2018 11:32:00 AM EDT [facility] Name Value Range Interpretation Description Data Sup porting Code Source(s) Document(s ) Valproate 30.0 "." Normal (applies Valproic Acid [facility] [Mass/volume ug/ml ug/ml to non-numeric Level, Serum Health Sy stem ] in Serum results) or Plasma Therapeutic 50 - 100Toxic >100 ug/mL ID Date Data Source [id number] 03/02/2018 11:32:00 AM EDT [facility] Name Value Range Interpretation Description Data Sup porting Code Source(s) Document(s ) Sodium 145 137 - Normal (applies Sodium, Serum [facility] [Moles/vol mmol/L 145 to non-numeric Health System ume] in mmol/L results) Serum or Plasma request another sample from nurse jael Kendrick Potassium 4.0 mmol/L 3.6 - 5.0 Normal (applies Potassium, [facility] [Mass/volume] in mmol/L to non-numeric Serum [facility] S [facility] Serum or Plasma results) request another sample from nurse jael Kendrick Chloride 104 mmol/L 98 - 107 Normal (applies Chloride, [facility] [Moles/volume] in mmol/L to non-numeric Serum Health System Serum or Plasma results) request another sample from nurse jael Mcdanielsk Carbon dioxide, 27.0 mmol/L 22.0 - 30.0 Normal (applies CO2, Serum [facility] total [Moles/volume] mmol/L to non-numeric Heal th System in Serum or Plasma results) request another sample from nurse jael Kendrick Total Protein 6.7 mg/dl 6.3 - 8.2 Normal (applies to Total Protein [facility] mg/dl non-numeric [facility] System results) request another sample from nurse jael Kendrick Glucose 84 mg/dL 65 - 105 Normal (applies Glucose, [facility] [Mass/volume] in mg/dL to non-numeric Serum [facility] Serum or Plasma results) Previously released as 0-(1) on 8, 03:31 PM by - (1) - request another sample from nurse grecia Barbaequest an other sample from nurse grecia Kendrick Urea nitrogen 17 mg/dl 7 - 18 Normal (applies Blood Urea [facility] [Mass/volume] in mg/dl to non-numeric Nitrogen, [facility] S [facility] Serum or Plasma results) Serum request another sample from nurse jael Kendrick Creatinine 1.10 mg/dl 0.70 - Normal (applies Creatinine, [facility] [Mass/volume] in 1.20 mg/dl to non-numeric Serum Health System Serum or Plasma results) request another sample from nurse jael Kendrick Alkaline phosphatase 67 {IU/L} 38 - 126 Normal (applies Alkaline [facility] isoenzymes IU/L to non-numeric Phosphatase, Health Syst em [Enzymatic results) Serum activity/volume] in Serum or Plasma by Heat stability request another sample from nurse jael Kendrick Bilirubin.total 0.5 mg/dl 0.2 - 1.3 Normal (applies Bilirubin, [facility] [Mass/volume] in mg/dl to non-numeric Serum Total Health System Serum or Plasma results) request another sample from nurse jael Kendrick Direct 0.2 mg/dl 0.0 - 0.4 Normal (applies Direct [facility] Bilirubin mg/dl to non-numeric Bilirubin [facility] System results) request another sample from nurse jael Kendrick Aspartate 23 {IU/L} 5 - 40 Normal (applies Aspartate [facility] aminotransferase IU/L to non-numeric Transaminase, Heal th System [Enzymatic results) Serum activity/volume] in Serum or Plasma by With P-5'-P request another sample from nurse jael Kendrick Albumin 4.1 {gm/dl} 3.9 - 5.0 Normal (applies Albumin, [facility] [Mass/volume] in gm/dl to non-numeric Serum Health S yste Serum or Plasma results) request another sample from nurse jael Kendrick I. Phosphorus 2.7 mg/dl 2.5 - 4.5 Normal (applies I. Phosphorus [facility] mg/dl to non-numeric Health System results) request another sample from nurse jael Kendrick Alanine 16 {IU/L} 7 - 56 Normal Alanine [facility] aminotransferase IU/L (applies to Aminotransferase, Hea lth System [Enzymatic non-numeric Serum activity/volume] in results) Serum or Plasma request another sample from nurse jael Kendrick Calcium 9.6 mg/dl 8.4 - 10.2 Normal (applies Calcium, [facility] [Mass/volume] in mg/dl to non-numeric Total Serum Health System Serum or Plasma results) request another sample from nurse jael Kendrick A/G Ratio 1.58 Normal (applies to A/G Ratio [facility] Health non-numeric System results) Urate 4.8 mg/dl 2.5 - Normal (applies to Uric Acid, [facility] Health [Mass/volume] 7.5 non-numeric Serum System in Serum or mg/dl results) Plasma request another sample from nurse jael Kendrick Anion gap in 14.00 mmol/L 8.00 - 12.00 Above high Anion Gap [facility] Serum or mmol/L normal System Plasma request another sample from nurse jael Kendrick Glomerular filtration 52.70 Normal (applies to GFR [facility] [employer] rate/1.73 sq M.predicted non-numeric results) System [Volume Rate/Area] in Serum or Plasma by Creatinine-based formula (CKD-EPI) request another sample from nurse jael PepperGFR will provide clinicians with a more accurate indicator of renal functio n then the serum creatinine. The eGFR is automatically calculated from an empiric formula (endorsed by the [employer]) which incorporates age, sex, and race.Clinicians may notice surprisingly low GFR's with serum creatinine valueswi thin normal range- particularly in elderly women (with low muscle mass).In the hosp ital setting, the eGFR should add an element of safety in drug dosing, in assessing t he risk of IV contrast administration, and in assessing vascular risk.The NKF staging system is as follows:Normal: eGFR >90 with no kidney markersStage 1: eGFR >90 wit h kidney markers*Stage 2: eGFR 60-89Stage 3: eGFR 30-59Stage 4: eGFR 15-29St age 5: eGFR <15 (usually requiring dialysis)*Markers include: Proteinuria, Hematuria, abnormal imaging-studies, or other blood or urine test abnormalities ID Date Data Source [id number] 03/02/2018 11:32:00 AM EDT [facility] Name Value Range Interpretation Description Data Sup porting Code Source(s) Document(s ) Phenytoin 0.7 10.0 - Below low normal Phenytoin [facility] [Mass/volume ug/ml 20.0 Level, Serum Health System ] in Serum ug/ml or Plasma ID Date Data Source [id number] 03/02/2018 11:32:00 AM EDT [facility] Name Value Range Interpretation Description Data Sup porting Code Source(s) Document(s ) Amphetamine Negative Negative Normal (applies Amphetamine [facility] [Mass/volume] ng/ml to non-numeric Level, Urine Health in Urine results) System Cut-off = 1000 ng/mL Barbiturates Negative Negative Normal (applies Barbiturate [facility] [Mass/volume] in ng/ml to non-numeric Screen, Urine Heal th System Urine by Screen results) method Cut-off = 200 ng/mL Benzodiazepines Negative Negative Normal Benzodiazepines, [facility] [Mass/volume] in ng/mL (applies to Urine Health Urine non-numeric System results) Cut-off = 200 ng/mL Cocaine Positive Negative Abnormal Cocaine [facility] metabolites.other ng/ml (applies to Metabolite Health Sy stem [Mass/volume] in non-numeric Screen, Urine Urine results) Cut-off = 300 ng/mL Methadone Negative Negative Normal (applies Methadone [facility] [Mass/volume] in ng/mL to non-numeric Level, Urine Healt h System Urine results) Cut-off = 300 ng/mL Opiate 300, Negative Negative ng/ml Normal (applies to Opiate 300, [facility] Urine non-numeric Urine Health System results) Cut-off = 300 ng/mL Phencyclidine Positive Negative Abnormal Phencyclidine, [facility] [Mass/volume] in ng/ml (applies to Urine Health Syst em Urine non-numeric results) Cut-off = 25 ng/mL Cannabinoid Negative Negative Normal (applies Cannabinoid [facility] (THC) ng/mL to non-numeric (THC) Health System results) Cutt-off = 50These results are for medic al treatment only. The positive findings are unconfirmed. Request confirmatory/quanti tative test if needed. ID Date Data Source [id number] 09/24/2017 04:39:00 PM EST [facility] BLOOD ALREADY IN LAB Name Value Range Interpretation Description Data Sup porting Code Source(s) Document(s ) Phenytoin 1.1 10.0 - Below low normal Phenytoin [facility] [Mass/volume ug/ml 20.0 Level, Serum Health System ] in Serum ug/ml or Plasma ID Date Data Source [id number] 09/24/2017 11:21:00 AM EST [facility] Name Value Range Interpretation Description Data Sup porting Code Source(s) Document(s ) hCG < 5 Normal (applies hCG [facility] Quantitative to non-numeric Quantitative Health Sy stem results) Negative = <5 mIU/mLAPPROXIMATE GEST. AG E APPROXIMATE HCG mIU/ML 0.2 - 1 week 5 - 50 1 - 2 w eeks 50 - 500 2 - 3 weeks 100 - 5,000 3 - 4 weeks 500 - 10,000 4 - 5 weeks 1,000 - 50,000 5 - 6 weeks 10,000 - 100,000 6 - 8 weeks 15,000 - 200,000 8 - 12 weeks 10,000 - 1 00,000HCG levels between 5-25 mIU/mL may be indicative of early . Correlati on with other clinical findings and/or repeat of HCG quantitative testing recommened. ID Date Data Source [id number] 09/24/2017 10:25:55 AM EST [facility] System Name Value Range Interpretation Description Data Sup porting Code Source(s) Document(s ) Valproate 17.2 "." Normal (applies Valproic Acid [facility] [Mass/volume ug/ml ug/ml to non-numeric Level, Serum Health Sy stem ] in Serum results) or Plasma called dr nguyễn to clarifyTherapeutic 50 - 1 00Toxic >100 ug/mL ID Date Data Source [id number] 09/24/2017 09:02:00 AM EST [facility] Name Value Range Interpretation Description Data Sup porting Code Source(s) Document(s ) Valproate 36.0 "." Normal (applies Valproic Acid [facility] [Mass/volume ug/ml ug/ml to non-numeric Level, Serum Health Sy stem ] in Serum results) or Plasma Therapeutic 50 - 100Toxic >100 ug/mL ID Date Data Source [id number] 09/23/2017 08:27:00 PM EST [facility] Name Value Range Interpretation Description Data Sup porting Code Source(s) Document(s ) Leukocytes 7.7 4.8 - Normal (applies WBC Count [facility] [#/volume] in {10^3_u 10.8 to non-numeric Health Unspecified L} 10^3 uL results) System specimen by Automated count Erythrocytes 3.87 3.80 - Normal (applies RBC Count [facility] [#/volume] in {10^6_u 5.20 to non-numeric Health Blood by L} 10^6 uL results) System Automated count Hemoglobin 12.5 12.0 - Normal (applies Hemoglobin [facility] [Mass/volume] in {gm/dL} 16.0 to non-numeric Health Blood gm/dL results) System Hematocrit 37.5 % 36.0 - Normal (applies Hematocrit [facility] [Volume 46.0 % to non-numeric Health Fraction] of results) System Blood Erythrocyte mean 96.9 fl 83.0 - Normal (applies MCV [facility] corpuscular 98.0 fl to non-numeric Health volume [Entitic results) System volume] by Automated count Erythrocyte mean 32.3 pg 26.0 - Normal (applies MCH [facility] corpuscular 34.0 pg to non-numeric Health hemoglobin results) System [Entitic mass] by Automated count Erythrocyte mean 33.3 33.0 - Normal (applies MCHC [facility] corpuscular {gm/dL} 37.0 to non-numeric Health hemoglobin gm/dL results) System concentration [Mass/volume] by Automated count Erythrocyte 13.8 % 11.5 - Normal (applies RDW-CV [facility] distribution 14.5 % to non-numeric Health width [Entitic results) System volume] by Automated count Platelets 239 130 - Normal (applies Platelet Count [facility] [#/volume] in {10^3_u 400 to non-numeric Health Plasma by L} 10^3 uL results) System Automated count Platelet mean 9.7 fl 7.4 - Normal (applies MPV [facility] volume [Entitic 10.4 fl to non-numeric Health volume] in Blood results) System by Automated count Monocytes 0.8 0.3 - Normal (applies Monocyte # [facility] [#/volume] in {10^3_u 0.9 to non-numeric Health Blood by Manual L} 10^3 uL results) System count Eosinophils 0.28 0.05 - Normal (applies Eosinophil # [facility] [#/volume] in {10^3_u 0.30 to non-numeric Health Blood L} 10^3 uL results) System Neutrophils 4.1 2.0 - Normal (applies Neutrophil # [facility] [#/volume] in {10^3_u 8.1 to non-numeric Health Body fluid L} 10^3 uL results) System Basophils 0.04 0.00 - Normal (applies Basophil # [facility] [#/volume] in {10^3_u 0.10 to non-numeric Health Blood by L} 10^3 uL results) System Automated count Lymphocyte # 2.5 1.0 - Normal (applies Lymphocyte # [facility] {10^3_u 5.5 to non-numeric Health L} 10^3 uL results) System Neutrophils/100 52.8 % 55.0 - Below low normal Neutrophil % [facility] leukocytes in 75.0 % Health Blood by System Automated count Monocytes/100 10.2 % 6.0 - Above high Monocyte % [facility] leukocytes in 9.0 % normal Health Blood System Eosinophils/100 3.6 % 0.0 - Normal (applies Eosinophil % Reynal[facility] josy leukocytes in 4.0 % to non-numeric Health Unspecified results) System specimen Basophils/100 0.5 % 0.0 - Normal (applies Basophil % [facility] leukocytes in 1.0 % to non-numeric Health Unspecified results) System specimen by Manual count Lymphocytes 32.6 % 21.0 - Normal (applies Lymphocyte % [facility] [#/volume] in 51.0 % to non-numeric Health Blood by results) System Automated count Immature 0.3 % 0.0 - Normal (applies Immature [facility] Granulocytes % 0.8 % to non-numeric Granulocytes % Healt h results) System Nucleated 0.0 0.0 - Normal (applies NRBC % [facility] erythrocytes {/100_W 0.0 to non-numeric Health [#/volume] in BC} /100 results) System Body fluid WBC Immature 0.02 0.00 - Normal (applies Immature [facility] Granulocytes # {10^3_u 0.09 to non-numeric Granulocytes # Healt h L} 10^3 uL results) System NRBC # 0.00 0.90 - Below low normal NRBC # [facility] {10^3_u 11.20 Health L} 10^3 uL System ID Date Data Source [id number] 09/23/2017 08:27:00 PM EST [facility] Name Value Range Interpretation Description Data Sup porting Code Source(s) Document(s ) Sodium 145 137 - Normal (applies Sodium, Serum [facility] [Moles/volume] in mmol/L 145 to non-numeric Health Serum or Plasma mmol/L results) System Potassium 3.6 3.6 - Normal (applies Potassium, [facility] [Mass/volume] in mmol/L 5.0 to non-numeric Serum Health Serum or Plasma mmol/L results) System Chloride 110 98 - Above high Chloride, [facility] [Moles/volume] in mmol/L 107 normal Serum Health Serum or Plasma mmol/L System Carbon dioxide, 22.0 22.0 - Normal (applies CO2, Serum [facility] total mmol/L 30.0 to non-numeric Health [Moles/volume] in mmol/L results) System Serum or Plasma Total Protein 6.1 6.3 - Below low normal Total Protein Reynaldo josy mg/dl 8.2 Health mg/dl System Glucose 82 65 - Normal (applies Glucose, [facility] [Mass/volume] in mg/dL 105 to non-numeric Serum Health Serum or Plasma mg/dL results) System Urea nitrogen 10 7 - 18 Normal (applies Blood Urea [facility] [Mass/volume] in mg/dl mg/dl to non-numeric Nitrogen, Health Serum or Plasma results) Serum System Creatinine 0.90 0.70 - Normal (applies Creatinine, [facility] [Mass/volume] in mg/dl 1.20 to non-numeric Serum Health Serum or Plasma mg/dl results) System Alkaline 73 38 - Normal (applies Alkaline [facility] phosphatase {IU/L} 126 to non-numeric Phosphatase, Health isoenzymes IU/L results) Serum System [Enzymatic activity/volume] in Serum or Plasma by Heat stability Bilirubin direct 0.5 0.2 - Normal (applies Bilirubin, [facility] and total panel mg/dl 1.3 to non-numeric Serum Total Health [Mass/volume] - mg/dl results) System Serum or Plasma Direct Bilirubin 0.2 0.0 - Normal (applies Direct [facility] mg/dl 0.4 to non-numeric Bilirubin Health mg/dl results) System Aspartate 15 5 - 40 Normal (applies Aspartate [facility] aminotransferase {IU/L} IU/L to non-numeric Transaminase, Heal th [Enzymatic results) Serum System activity/volume] in Serum or Plasma by With P-5'-P Albumin 3.6 3.9 - Below low normal Albumin, [facility] [Mass/volume] in {gm/dl} 5.0 Serum Health Serum or Plasma gm/dl System I. Phosphorus 2.6 2.5 - Normal (applies I. Phosphorus [facility] mg/dl 4.5 to non-numeric Health mg/dl results) System Alanine 19 7 - 56 Normal (applies Alanine [facility] aminotransferase {IU/L} IU/L to non-numeric Aminotransfer Heal th [Enzymatic results) ase, Serum System activity/volume] in Serum or Plasma Calcium 8.4 8.4 - Normal (applies Calcium, [facility] [Mass/volume] in mg/dl 10.2 to non-numeric Total Serum Health Serum or Plasma mg/dl results) System A/G Ratio 1.44 Normal (applies A/G Ratio [facility] to non-numeric Health results) System Urate 6.2 2.5 - Normal (applies Uric Acid, [facility] [Mass/volume] in mg/dl 7.5 to non-numeric Serum Health Serum or Plasma mg/dl results) System Anion gap in Serum 13.00 8.00 - Above high Anion Gap [facility] or Plasma mmol/L 12.00 normal Health mmol/L System Glomerular 66.55 Normal (applies GFR [facility] filtration to non-numeric Health rate/1.73 sq results) System M.predicted [Volume Rate/Area] in Serum or Plasma by Creatinine-based formula (CKD-EPI) eGFR will provide clinicians with a more accurate indicator of renal function then the serum creatinine. The eGFR is automa tically calculated from an empiric formula (endorsed by the National Kidney [employer] ion) which incorporates age, sex, and race.Clinicians may notice surprisingly low GFR's with serum creatinine valueswithin normal range- particularly in elderly wo men (with low muscle mass).In the hospital setting, the eGFR should add an element of safety in drug dosing, in assessing the risk of IV contrast administration, and in assessing vascular risk.The NKF staging system is as follows:Normal: eGFR >90 with no kidney markersStage 1: eGFR >90 with kidney markers*Stage 2: eGFR 60- 89Stage 3: eGFR 30-59Stage 4: eGFR 15-29Stage 5: eGFR <15 (usually requir ing dialysis)*Markers include: Proteinuria, Hematuria, abnormal imaging-studies, or other blood or urine test abnormalities ID Date Data Source [id number] 09/23/2017 08:27:00 PM EST [facility] Name Value Range Interpretation Description Data Sup porting Code Source(s) Document(s ) Troponin I 0.01 0.00 - Normal (applies Troponin I [facility] Quantitative - ng/mL 0.04 to non-numeric Quantitative - Healt h MV Only ng/mL results) MV Only System ID Date Data Source [id number] 06/17/2017 10:25:00 PM EDT [facility] Name Value Range Interpretation Description Data Sup porting Code Source(s) Document(s ) Sodium 143 137 - Normal (applies Sodium, Serum [facility] [Moles/volume mmol/L 145 to non-numeric Health ] in Serum or mmol/L results) System Plasma Potassium 4.3 3.6 - Normal (applies Potassium, [facility] [Mass/volume] mmol/L 5.0 to non-numeric Serum Health in Serum or mmol/L results) System Plasma Chloride 109 98 - 107 Above high normal Chloride, [facility] [Moles/volume mmol/L mmol/L Serum Health ] in Serum or System Plasma Carbon 25.0 22.0 - Normal (applies CO2, Serum [facility] dioxide, mmol/L 30.0 to non-numeric Health total mmol/L results) System [Moles/volume ] in Serum or Plasma Glucose 74 mg/dL 65 - 105 Normal (applies Glucose, Serum [facility] [Mass/volume] mg/dL to non-numeric Health in Serum or results) System Plasma Urea nitrogen 12 mg/dl 7 - 18 Normal (applies Blood Urea [facility] [Mass/volume] mg/dl to non-numeric Nitrogen, Health in Serum or results) Serum System Plasma Creatinine 1.00 0.70 - Normal (applies Creatinine, [facility] [Mass/volume] mg/dl 1.20 to non-numeric Serum Health in Serum or mg/dl results) System Plasma Calcium 9.3 8.4 - Normal (applies Calcium, Total [facility] [Mass/volume] mg/dl 10.2 to non-numeric Serum Health in Serum or mg/dl results) System Plasma Anion gap in 9.00 8.00 - Normal (applies Anion Gap [facility] Serum or mmol/L 12.00 to non-numeric Health Plasma mmol/L results) System ID Date Data Source [id number] 06/17/2017 10:25:00 PM EDT [facility] Name Value Range Interpretation Description Data Sup porting Code Source(s) Document(s ) Magnesium 1.7 1.7 - Normal (applies Magnesium, [facility] [Mass/volume {mEq/L} 2.2 to non-numeric Serum Health Syste m ] in Serum mEq/L results) or Plasma ID Date Data Source [id number] 06/17/2017 08:54:00 PM EDT [facility] Name Value Range Interpretation Description Data Sup porting Code Source(s) Document(s ) Leukocytes 9.3 4.8 - Normal (applies WBC Count [facility] [#/volume] in {10^3_u 10.8 to non-numeric Health Unspecified L} 10^3 uL results) System specimen by Automated count Erythrocytes 4.39 3.80 - Normal (applies RBC Count [facility] [#/volume] in {10^6_u 5.20 to non-numeric Health Blood by L} 10^6 uL results) System Automated count Hemoglobin 14.4 12.0 - Normal (applies Hemoglobin [facility] [Mass/volume] in {gm/dL} 16.0 to non-numeric Health Blood gm/dL results) System Hematocrit 42.2 % 36.0 - Normal (applies Hematocrit [facility] [Volume 46.0 % to non-numeric Health Fraction] of results) System Blood Erythrocyte mean 96.1 fl 83.0 - Normal (applies MCV [facility] corpuscular 98.0 fl to non-numeric Health volume [Entitic results) System volume] by Automated count Erythrocyte mean 32.8 pg 26.0 - Normal (applies MCH [facility] corpuscular 34.0 pg to non-numeric Health hemoglobin results) System [Entitic mass] by Automated count Erythrocyte mean 34.1 33.0 - Normal (applies MCHC [facility] corpuscular {gm/dL} 37.0 to non-numeric Health hemoglobin gm/dL results) System concentration [Mass/volume] by Automated count Erythrocyte 13.2 % 11.5 - Normal (applies RDW-CV [facility] distribution 14.5 % to non-numeric Health width [Entitic results) System volume] by Automated count Platelets 265 130 - Normal (applies Platelet Count [facility] [#/volume] in {10^3_u 400 to non-numeric Health Plasma by L} 10^3 uL results) System Automated count Platelet mean 9.6 fl 7.4 - Normal (applies MPV [facility] volume [Entitic 10.4 fl to non-numeric Health volume] in Blood results) System by Automated count Monocytes 0.5 0.3 - Normal (applies Monocyte # [facility] [#/volume] in {10^3_u 0.9 to non-numeric Health Blood by Manual L} 10^3 uL results) System count Eosinophils 0.07 0.05 - Normal (applies Eosinophil # [facility] [#/volume] in {10^3_u 0.30 to non-numeric Health Blood L} 10^3 uL results) System Neutrophils 7.2 2.0 - Normal (applies Neutrophil # [facility] [#/volume] in {10^3_u 8.1 to non-numeric Health Body fluid L} 10^3 uL results) System Basophils 0.06 0.00 - Normal (applies Basophil # [facility] [#/volume] in {10^3_u 0.10 to non-numeric Health Blood by L} 10^3 uL results) System Automated count Lymphocyte # 1.4 1.0 - Normal (applies Lymphocyte # [facility] {10^3_u 5.5 to non-numeric Health L} 10^3 uL results) System Neutrophils/100 77.6 % 55.0 - Above high Neutrophil % [facility] leukocytes in 75.0 % normal Health Blood by System Automated count Monocytes/100 5.4 % 6.0 - Below low normal Monocyte % [facility] leukocytes in 9.0 % Health Blood System Eosinophils/100 0.8 % 0.0 - Normal (applies Eosinophil % Reynaldo josy leukocytes in 4.0 % to non-numeric Health Unspecified results) System specimen Basophils/100 0.6 % 0.0 - Normal (applies Basophil % [facility] leukocytes in 1.0 % to non-numeric Health Unspecified results) System specimen by Manual count Lymphocytes 15.3 % 21.0 - Below low normal Lymphocyte % [facility] [#/volume] in 51.0 % Health Blood by System Automated count Immature 0.3 % 0.0 - Normal (applies Immature [facility] Granulocytes % 0.8 % to non-numeric Granulocytes % Healt h results) System Nucleated 0.0 0.0 - Normal (applies NRBC % [facility] erythrocytes {/100_W 0.0 to non-numeric Health [#/volume] in BC} /100 results) System Body fluid WBC Immature 0.03 0.00 - Normal (applies Immature [facility] Granulocytes # {10^3_u 0.09 to non-numeric Granulocytes # Healt h L} 10^3 uL results) System NRBC # 0.00 0.90 - Below low normal NRBC # [facility] {10^3_u 11.20 Health L} 10^3 uL System ID Date Data Source [id number] 06/17/2017 08:54:00 PM EDT [facility] Name Value Range Interpretation Description Data Sup porting Code Source(s) Document(s ) HCG NEGATIVE Negative Normal (applies HCG [facility] Qualitative mIU/ml to non-numeric Qualitative Health results) System Default Normal RangesNegative <5Indeterm inate 5-25(Please repeat in 2 days.)Positive >25 ID Date Data Source [id number] 06/17/2017 08:54:00 PM EDT [facility] Name Value Range Interpretation Description Data Sup porting Code Source(s) Document(s ) Sodium 138 mmol/L 137 - Normal (applies Sodium, Serum [facility] [Moles/volume 145 to non-numeric Health ] in Serum or mmol/L results) System Plasma Potassium Cancelled Potassium, [facility] [Mass/volume] specimen Serum Health in Serum or grossly System Plasma hemolysed. notified dheeraj Lugo. potassium deleted. Chloride 107 mmol/L 98 - Normal (applies Chloride, [facility] [Moles/volume 107 to non-numeric Serum Health ] in Serum or mmol/L results) System Plasma Carbon 14.0 mmol/L 22.0 - Below low normal CO2, Serum [facility] dioxide, 30.0 Health total mmol/L System [Moles/volume ] in Serum or Plasma Glucose 117 mg/dL 65 - Above high Glucose, [facility] [Mass/volume] 105 normal Serum Health in Serum or mg/dL System Plasma Urea nitrogen 13 mg/dl 7 - 18 Normal (applies Blood Urea [facility] [Mass/volume] mg/dl to non-numeric Nitrogen, Health in Serum or results) Serum System Plasma Creatinine 1.20 mg/dl 0.70 - Normal (applies Creatinine, [facility] [Mass/volume] 1.20 to non-numeric Serum Health in Serum or mg/dl results) System Plasma Calcium 9.4 mg/dl 8.4 - Normal (applies Calcium, [facility] [Mass/volume] 10.2 to non-numeric Total Serum Health in Serum or mg/dl results) System Plasma Anion gap in 17.00 8.00 - Above high Anion Gap [facility] Serum or mmol/L 12.00 normal Health Plasma mmol/L System ID Date Data Source [id number] 06/17/2017 08:54:00 PM EDT [facility] Name Value Range Interpretation Description Data Sup porting Code Source(s) Document(s ) Magnesium 4.3 1.7 - Above upper panic Magnesium, [facility] [Mass/volume {mEq/L} 2.2 limits Serum Health System ] in Serum mEq/L or Plasma Result Reporting|Telephone|dheeraj lugo| at 10:12 PMCalled to:dheeraj lugoTech Name:lanaTiffaniemann by:dheeraj lugo 06/17/2017 / 10:11 PM ID Date Data Source [id number] 11/29/2016 06:00:00 AM EST [facility] Name Value Range Interpretation Description Data Sup porting Code Source(s) Document(s ) Valproate 46.7 "." Normal (applies Valproic Acid [facility] [Mass/volume ug/ml ug/ml to non-numeric Level, Serum Health Sy stem ] in Serum results) or Plasma Therapeutic 50 - 100Toxic >100 ug/mL ID Date Data Source [id number] 11/29/2016 06:00:00 AM EST [facility] Name Value Range Interpretation Description Data Sup porting Code Source(s) Document(s ) Sodium 140 137 - Normal (applies Sodium, Serum [facility] [Moles/volume mmol/L 145 to non-numeric Health ] in Serum or mmol/L results) System Plasma Potassium 4.7 3.6 - Normal (applies Potassium, [facility] [Mass/volume] mmol/L 5.0 to non-numeric Serum Health in Serum or mmol/L results) System Plasma Chloride 105 98 - 107 Normal (applies Chloride, [facility] [Moles/volume mmol/L mmol/L to non-numeric Serum Health ] in Serum or results) System Plasma Carbon 29.0 22.0 - Normal (applies CO2, Serum [facility] dioxide, mmol/L 30.0 to non-numeric Health total mmol/L results) System [Moles/volume ] in Serum or Plasma Glucose 77 mg/dL 65 - 105 Normal (applies Glucose, Serum [facility] [Mass/volume] mg/dL to non-numeric Health in Serum or results) System Plasma Urea nitrogen 19 mg/dl 7 - 18 Above high normal Blood Urea [facility] [Mass/volume] mg/dl Nitrogen, Health in Serum or Serum System Plasma Creatinine 0.90 0.70 - Normal (applies Creatinine, [facility] [Mass/volume] mg/dl 1.20 to non-numeric Serum Health in Serum or mg/dl results) System Plasma Calcium 8.7 8.4 - Normal (applies Calcium, Total [facility] [Mass/volume] mg/dl 10.2 to non-numeric Serum Health in Serum or mg/dl results) System Plasma Anion gap in 6.00 8.00 - Below low normal Anion Gap [facility] Serum or mmol/L 12.00 Health Plasma mmol/L System ID Date Data Source [id number] 11/28/2016 06:00:00 AM EST [facility] Name Value Range Interpretation Description Data Sup porting Code Source(s) Document(s ) Leukocytes 6.1 4.8 - Normal (applies WBC Count [facility] [#/volume] in {10^3_uL 10.8 to non-numeric Health Unspecified } 10^3 uL results) System specimen by Automated count Erythrocytes 3.39 3.80 - Below low normal RBC Count [facility] [#/volume] in {10^6_uL 5.20 Health Blood by } 10^6 uL System Automated count Hemoglobin 11.0 12.0 - Below low normal Hemoglobin [facility] [Mass/volume] in {gm/dL} 16.0 Health Blood gm/dL System Hematocrit 33.3 % 36.0 - Below low normal Hematocrit [facility] [Volume 46.0 % Health Fraction] of System Blood Erythrocyte mean 98.2 fl 83.0 - Above high MCV [facility] corpuscular 98.0 fl normal Health volume [Entitic System volume] by Automated count Erythrocyte mean 32.4 pg 26.0 - Normal (applies MCH [facility] corpuscular 34.0 pg to non-numeric Health hemoglobin results) System [Entitic mass] by Automated count Erythrocyte mean 33.0 33.0 - Normal (applies MCHC [facility] corpuscular {gm/dL} 37.0 to non-numeric Health hemoglobin gm/dL results) System concentration [Mass/volume] by Automated count Erythrocyte 12.8 % 11.5 - Normal (applies RDW-CV [facility] distribution 14.5 % to non-numeric Health width [Entitic results) System volume] by Automated count Platelets 190 130 - Normal (applies Platelet [facility] [#/volume] in {10^3_uL 400 to non-numeric Count Health Plasma by } 10^3 uL results) System Automated count Platelet mean 10.0 fl 7.4 - Normal (applies MPV [facility] volume [Entitic 10.4 fl to non-numeric Health volume] in Blood results) System by Automated count ID Date Data Source [id number] 11/28/2016 06:00:00 AM EST [facility] Name Value Range Interpretation Description Data Sup porting Code Source(s) Document(s ) Thyrotropin 0.622 0.380 - Normal (applies Thyroid [facility] [Mass/volume] {mIU/mL} 6.150 to non-numeric Stimulating Health in Serum or mIU/mL results) Hormone, System Plasma Serum ID Date Data Source [id number] 11/28/2016 06:00:00 AM EST [facility] Name Value Range Interpretation Description Data Sup porting Code Source(s) Document(s ) Sodium 139 137 - Normal (applies Sodium, Serum [facility] [Moles/volume mmol/L 145 to non-numeric Health ] in Serum or mmol/L results) System Plasma Potassium 4.7 3.6 - Normal (applies Potassium, [facility] [Mass/volume] mmol/L 5.0 to non-numeric Serum Health in Serum or mmol/L results) System Plasma Chloride 106 98 - 107 Normal (applies Chloride, [facility] [Moles/volume mmol/L mmol/L to non-numeric Serum Health ] in Serum or results) System Plasma Carbon 27.0 22.0 - Normal (applies CO2, Serum [facility] dioxide, mmol/L 30.0 to non-numeric Health total mmol/L results) System [Moles/volume ] in Serum or Plasma Glucose 75 mg/dL 65 - 105 Normal (applies Glucose, Serum [facility] [Mass/volume] mg/dL to non-numeric Health in Serum or results) System Plasma Urea nitrogen 14 mg/dl 7 - 18 Normal (applies Blood Urea [facility] [Mass/volume] mg/dl to non-numeric Nitrogen, Health in Serum or results) Serum System Plasma Creatinine 0.80 0.70 - Normal (applies Creatinine, [facility] [Mass/volume] mg/dl 1.20 to non-numeric Serum Health in Serum or mg/dl results) System Plasma Calcium 8.3 8.4 - Below low normal Calcium, Total [facility] [Mass/volume] mg/dl 10.2 Serum Health in Serum or mg/dl System Plasma Anion gap in 6.00 8.00 - Below low normal Anion Gap [facility] Serum or mmol/L 12.00 Health Plasma mmol/L System ID Date Data Source [id number] 11/28/2016 06:00:00 AM EST [facility] Name Value Range Interpretation Description Data Sup porting Code Source(s) Document(s ) Triglyceride 35 mg/dl 35 - 135 Normal (applies Triglycerides [facility] [Mass/volume] mg/dl to non-numeric , Serum Health in Serum or results) System Plasma Optimal = < 100 mg/dLBoderline High = 15 0 - 199 mg/dLHigh = 200 - 499 mg/dLVery High = > 500 mg/dL Cholesterol 115 mg/dl *.* mg/dl Normal (applies Cholesterol, [facility] [Mass/volume] in to non-numeric Serum Health S yste Serum or Plasma results) <200 mg/dL = Qyyhmgiar077 - 239 md/dL = Borderline>240 mg/dL = High Risk Cholesterol in HDL 47.0 mg/dL 32.0 - Normal (applies HDL Choleste rol, [facility] [Mass/volume] in 75.0 mg/dL to non-numeric Serum Health System Serum or Plasma results) Cholesterol in LDL 61 mg/dL Normal (applies Low Density [facility] [Mass/volume] in to non-numeric Lipoprotein, Healt h System Serum or Plasma results) Calculated OPTIMAL: LESS THAN 100 mg/dLNEAR OPTIMAL : 100 - 129 mg/dLBODERLINE HIGH: 130 - 150 mg/dL Cholesterol in VLDL 7 Normal (applies to VLDL, Serum [facility] [Mass/volume] in non-numeric System Serum or Plasma results) CHD Risk 2.45 2.40 - Normal (applies to CHD Risk [facility] 5.30 non-numeric System results) ID Date Data Source [id number] 11/28/2016 06:00:00 AM [facility] Name Value Range Interpretation Code Description Data Suha rce(s) Supporting Document(s ) HbA1C 4.9 % 4.6 - 6.2 % Normal (applies to HbA1C [facility] non-numeric [facility] System results) ID Date Data Source [id number] 11/27/2016 04:39:00 AM EST [facility] Name Value Range Interpretation Description Data Sup porting Code Source(s) Document(s ) Leukocytes 6.6 4.8 - Normal (applies WBC Count [facility] [#/volume] in {10^3_u 10.8 to non-numeric Health Unspecified L} 10^3 uL results) System specimen by Automated count Erythrocytes 3.49 3.80 - Below low normal RBC Count [facility] [#/volume] in {10^6_u 5.20 Health Blood by L} 10^6 uL System Automated count Hemoglobin 11.3 12.0 - Below low normal Hemoglobin [facility] [Mass/volume] in {gm/dL} 16.0 Health Blood gm/dL System Hematocrit 34.2 % 36.0 - Below low normal Hematocrit [facility] [Volume 46.0 % Health Fraction] of System Blood Erythrocyte mean 98.0 fl 83.0 - Normal (applies MCV [facility] corpuscular 98.0 fl to non-numeric Health volume [Entitic results) System volume] by Automated count Erythrocyte mean 32.4 pg 26.0 - Normal (applies MCH [facility] corpuscular 34.0 pg to non-numeric Health hemoglobin results) System [Entitic mass] by Automated count Erythrocyte mean 33.0 33.0 - Normal (applies MCHC [facility] corpuscular {gm/dL} 37.0 to non-numeric Health hemoglobin gm/dL results) System concentration [Mass/volume] by Automated count Erythrocyte 13.1 % 11.5 - Normal (applies RDW-CV [facility] distribution 14.5 % to non-numeric Health width [Entitic results) System volume] by Automated count Platelets 192 130 - Normal (applies Platelet Count [facility] [#/volume] in {10^3_u 400 to non-numeric Health Plasma by L} 10^3 uL results) System Automated count Platelet mean 9.7 fl 7.4 - Normal (applies MPV [facility] volume [Entitic 10.4 fl to non-numeric Health volume] in Blood results) System by Automated count Monocytes 0.5 0.3 - Normal (applies Monocyte # [facility] [#/volume] in {10^3_u 0.9 to non-numeric Health Blood by Manual L} 10^3 uL results) System count Eosinophils 0.31 0.05 - Above high Eosinophil # [facility] [#/volume] in {10^3_u 0.30 normal Health Blood L} 10^3 uL System Neutrophils 4.0 2.0 - Normal (applies Neutrophil # [facility] [#/volume] in {10^3_u 8.1 to non-numeric Health Body fluid L} 10^3 uL results) System Basophils 0.04 0.00 - Normal (applies Basophil # [facility] [#/volume] in {10^3_u 0.10 to non-numeric Health Blood by L} 10^3 uL results) System Automated count Lymphocyte # 1.8 1.0 - Normal (applies Lymphocyte # [facility] {10^3_u 5.5 to non-numeric Health L} 10^3 uL results) System Neutrophils/100 60.4 % 55.0 - Normal (applies Neutrophil % Reynaldo josy leukocytes in 75.0 % to non-numeric Health Blood by results) System Automated count Monocytes/100 7.1 % 6.0 - Normal (applies Monocyte % [facility] leukocytes in 9.0 % to non-numeric Health Blood results) System Eosinophils/100 4.7 % 0.0 - Above high Eosinophil % [facility] leukocytes in 4.0 % normal Health Unspecified System specimen Basophils/100 0.6 % 0.0 - Normal (applies Basophil % [facility] leukocytes in 1.0 % to non-numeric Health Unspecified results) System specimen by Manual count Lymphocytes 27.0 % 21.0 - Normal (applies Lymphocyte % [facility] [#/volume] in 51.0 % to non-numeric Health Blood by results) System Automated count Immature 0.2 % 0.0 - Normal (applies Immature [facility] Granulocytes % 0.8 % to non-numeric Granulocytes % Healt h results) System Nucleated 0.0 0.0 - Normal (applies NRBC % [facility] erythrocytes {/100_W 0.0 to non-numeric Health [#/volume] in BC} /100 results) System Body fluid WBC Immature 0.01 0.00 - Normal (applies Immature [facility] Granulocytes # {10^3_u 0.09 to non-numeric Granulocytes # Healt h L} 10^3 uL results) System NRBC # 0.00 0.90 - Below low normal NRBC # [facility] {10^3_u 11.20 Health L} 10^3 uL System ID Date Data Source [id number] 11/27/2016 04:39:00 AM EST [facility] Name Value Range Interpretation Description Data Sup porting Code Source(s) Document(s ) Sodium 141 137 - Normal (applies Sodium, Serum [facility] [Moles/volume mmol/L 145 to non-numeric Health ] in Serum or mmol/L results) System Plasma Potassium 4.6 3.6 - Normal (applies Potassium, [facility] [Mass/volume] mmol/L 5.0 to non-numeric Serum Health in Serum or mmol/L results) System Plasma Chloride 110 98 - 107 Above high normal Chloride, [facility] [Moles/volume mmol/L mmol/L Serum Health ] in Serum or System Plasma Carbon 26.0 22.0 - Normal (applies CO2, Serum [facility] dioxide, mmol/L 30.0 to non-numeric Health total mmol/L results) System [Moles/volume ] in Serum or Plasma Glucose 78 mg/dL 65 - 105 Normal (applies Glucose, Serum [facility] [Mass/volume] mg/dL to non-numeric Health in Serum or results) System Plasma Urea nitrogen 9 mg/dl 7 - 18 Normal (applies Blood Urea [facility] [Mass/volume] mg/dl to non-numeric Nitrogen, Health in Serum or results) Serum System Plasma Creatinine 0.80 0.70 - Normal (applies Creatinine, [facility] [Mass/volume] mg/dl 1.20 to non-numeric Serum Health in Serum or mg/dl results) System Plasma Calcium 8.0 8.4 - Below low normal Calcium, Total [facility] [Mass/volume] mg/dl 10.2 Serum Health in Serum or mg/dl System Plasma Anion gap in 5.00 8.00 - Below low normal Anion Gap [facility] Serum or mmol/L 12.00 Health Plasma mmol/L System ID Date Data Source [id number] 11/27/2016 04:39:00 AM L[facility] Name Value Range Interpretation Description Data Sup porting Code Source(s) Document(s ) Magnesium 2.0 1.7 - Normal (applies Magnesium, [facility] [Mass/volume {mEq/L} 2.2 to non-numeric Serum Health Syste m ] in Serum mEq/L results) or Plasma ID Date Data Source [id number] 11/27/2016 04:33:00 AM EST [facility] Name Value Range Interpretation Description Data Sup porting Code Source(s) Document(s ) pH 7.401 7.350 - Normal (applies pH [facility] {pH_units} 7.450 to non-numeric Health pH results) System units Carbon 48.1 32.0 - Above high pCO2, [facility] dioxide {mm_Hg} 45.0 mm normal Arterial [facility] [Partial Hg System pressure] in Arterial blood Oxygen 138.0 83.0 - Above high pO2, Aterial [facility] [Partial {mm_Hg} 108.0 normal Health pressure] in mm Hg System Arterial blood Base Excess. 5.0 mmol/L -3.0 - Above high Base Excess. [facility] 3.0 normal Health mmol/L System Bicarbonate 29.8 mmol/L 20.0 - Above high HCO3 [facility] [Moles/volume 26.0 normal Health ] in Venous mmol/L System blood TCO2 Cancelled TCO2 [facility] System O2 Saturation Cancelled O2 Saturation [facility] System Sodium, WB 139 mmol/L 137 - Normal (applies Sodium, WB [facility] 145 to non-numeric Health mmol/L results) System Potassium, WB 4.3 mmol/L 3.6 - Normal (applies Potassium, WB Reynaldo josy 5.0 to non-numeric Health mmol/L results) System Chloride, WB 108 mmol/L 98 - Above high Chloride, WB [facility] 107 normal Health mmol/L System Glucose, WB 88 mg/dL 70 - Normal (applies Glucose, WB [facility] 105 to non-numeric Health mg/dL results) System Ionized 1.18 mmol/L 1.15 - Normal (applies Ionized [facility] Calcium 1.29 to non-numeric Calcium Health mmol/L results) System Lactate 0.5 mmol/L 0.5 - Normal (applies Lactate [facility] [Mass/volume] 1.6 to non-numeric Health in Serum or mmol/L results) System Plasma ID Date Data Source [id number] 11/26/2016 03:51:00 PM EST [facility] Name Value Range Interpretation Description Data Sup porting Code Source(s) Document(s ) Sodium 140 137 - Normal (applies Sodium, Serum [facility] [Moles/volume] in mmol/L 145 to non-numeric Health Serum or Plasma mmol/L results) System Potassium 3.7 3.6 - Normal (applies Potassium, [facility] [Mass/volume] in mmol/L 5.0 to non-numeric Serum Health Serum or Plasma mmol/L results) System Chloride 106 98 - Normal (applies Chloride, [facility] [Moles/volume] in mmol/L 107 to non-numeric Serum Health Serum or Plasma mmol/L results) System Carbon dioxide, 27.0 22.0 - Normal (applies CO2, Serum [facility] total mmol/L 30.0 to non-numeric Health [Moles/volume] in mmol/L results) System Serum or Plasma Total Protein 5.6 6.3 - Below low normal Total Protein Reynaldo josy mg/dl 8.2 Health mg/dl System Glucose 83 65 - Normal (applies Glucose, [facility] [Mass/volume] in mg/dL 105 to non-numeric Serum Health Serum or Plasma mg/dL results) System Urea nitrogen 7 mg/dl 7 - 18 Normal (applies Blood Urea [facility] [Mass/volume] in mg/dl to non-numeric Nitrogen, Health Serum or Plasma results) Serum System Creatinine 0.70 0.70 - Normal (applies Creatinine, [facility] [Mass/volume] in mg/dl 1.20 to non-numeric Serum Health Serum or Plasma mg/dl results) System Alkaline 54 38 - Normal (applies Alkaline [facility] phosphatase {IU/L} 126 to non-numeric Phosphatase, [facility] isoenzymes IU/L results) Serum System [Enzymatic activity/volume] in Serum or Plasma by Heat stability Bilirubin.total 0.7 0.2 - Normal (applies Bilirubin, [facility] [Mass/volume] in mg/dl 1.3 to non-numeric Serum Total Health Serum or Plasma mg/dl results) System Direct Bilirubin 0.3 0.0 - Normal (applies Direct [facility] mg/dl 0.4 to non-numeric Bilirubin Health mg/dl results) System Aspartate 26 5 - 40 Normal (applies Aspartate [facility] aminotransferase {IU/L} IU/L to non-numeric Transaminase, Heal [Enzymatic results) Serum System activity/volume] in Serum or Plasma by With P-5'-P Albumin 3.3 3.9 - Below low normal Albumin, [facility] [Mass/volume] in {gm/dl} 5.0 Serum Health Serum or Plasma gm/dl System I. Phosphorus 3.7 2.5 - Normal (applies I. Phosphorus [facility] mg/dl 4.5 to non-numeric Health mg/dl results) System Alanine 17 7 - 56 Normal (applies Alanine [facility] aminotransferase {IU/L} IU/L to non-numeric Aminotransfer Heal th [Enzymatic results) ase, Serum System activity/volume] in Serum or Plasma Calcium 8.2 8.4 - Below low normal Calcium, [facility] [Mass/volume] in mg/dl 10.2 Total Serum Health Serum or Plasma mg/dl System A/G Ratio 1.43 Normal (applies A/G Ratio [facility] to non-numeric Health results) System Urate 4.3 2.5 - Normal (applies Uric Acid, [facility] [Mass/volume] in mg/dl 7.5 to non-numeric Serum Health Serum or Plasma mg/dl results) System Anion gap in Serum 7.00 8.00 - Below low normal Anion Gap [facility] or Plasma mmol/L 12.00 Health mmol/L System Glomerular 89.25 Normal (applies GFR [facility] filtration to non-numeric Health rate/1.73 sq results) System M.predicted [Volume Rate/Area] in Serum or Plasma by Creatinine-based formula (CKD-EPI) eGFR will provide clinicians with a more accurate indicator of renal function then the serum creatinine. The eGFR is automa tically calculated from an empiric formula (endorsed by the [employer] ion) which incorporates age, sex, and race.Clinicians may notice surprisingly low GFR's with serum creatinine valueswithin normal range- particularly in elderly wo men (with low muscle mass).In the hospital setting, the eGFR should add an element of safety in drug dosing, in assessing the risk of IV contrast administration, and in assessing vascular risk.The NKF staging system is as follows:Normal: eGFR >90 with no kidney markersStage 1: eGFR >90 with kidney markers*Stage 2: eGFR 60- 89Stage 3: eGFR 30-59Stage 4: eGFR 15-29Stage 5: eGFR <15 (usually requir ing dialysis)*Markers include: Proteinuria, Hematuria, abnormal imaging-studies, or other blood or urine test abnormalities ID Date Data Source [id number] 11/26/2016 03:51:00 PM [facility] Name Value Range Interpretation Description Data Sup porting Code Source(s) Document(s ) Creatine 381 30 - 135 Above high normal Creatine [facility] kinase.MB {IU/L} IU/L Kinase, Serum Health System [Mass/volum e] in Serum or Plasma ID Date Data Source [id number] 11/26/2016 05:43:00 AM EST [facility] Name Value Range Interpretation Description Data Sup porting Code Source(s) Document(s ) pH 7.463 7.350 - Above high normal pH [facility] {pH_unit 7.450 pH Health s} units System Carbon dioxide 40.5 32.0 - Normal (applies pCO2, [facility] [Partial {mm_Hg} 45.0 mm to non-numeric Arterial Health pressure] in Hg results) System Arterial blood Oxygen 120.0 83.0 - Above high normal pO2, Aterial [facility] [Partial {mm_Hg} 108.0 mm Health pressure] in Hg System Arterial blood Base Excess. 5.2 -3.0 - Above high normal Base Excess. [facility] mmol/L 3.0 Health mmol/L System Bicarbonate 29.0 20.0 - Above high normal HCO3 [facility] [Moles/volume] mmol/L 26.0 Health in Venous mmol/L System blood TCO2 26.1 24.0 - Normal (applies TCO2 [facility] mmol/L 30.0 to non-numeric Health mmol/L results) System O2 Saturation 98.9 % 95.0 - Normal (applies O2 Saturation [facility] 99.0 % to non-numeric Health results) System Sodium, WB 141 137 - Normal (applies Sodium, WB [facility] mmol/L 145 to non-numeric Health mmol/L results) System Potassium, WB 3.2 3.6 - Below low normal Potassium, WB Reynaldo josy mmol/L 5.0 Health mmol/L System Chloride, WB 107 98 - 107 Normal (applies Chloride, WB [facility] mmol/L mmol/L to non-numeric Health results) System Glucose, WB 79 mg/dL 70 - 105 Normal (applies Glucose, WB [facility] mg/dL to non-numeric Health results) System Ionized 1.16 1.15 - Normal (applies Ionized [facility] Calcium mmol/L 1.29 to non-numeric Calcium Health mmol/L results) System Lactate 0.5 0.5 - Normal (applies Lactate [facility] [Mass/volume] mmol/L 1.6 to non-numeric Health in Serum or mmol/L results) System Plasma ID Date Data Source [id number] 11/26/2016 05:10:00 AM EST [facility] Name Value Range Interpretation Description Data Sup porting Code Source(s) Document(s ) Leukocytes 9.3 4.8 - Normal (applies WBC Count [facility] [#/volume] in {10^3_u 10.8 to non-numeric Health Unspecified L} 10^3 uL results) System specimen by Automated count Erythrocytes 4.01 3.80 - Normal (applies RBC Count [facility] [#/volume] in {10^6_u 5.20 to non-numeric Health Blood by L} 10^6 uL results) System Automated count Hemoglobin 12.9 12.0 - Normal (applies Hemoglobin [facility] [Mass/volume] in {gm/dL} 16.0 to non-numeric Health Blood gm/dL results) System Hematocrit 39.0 % 36.0 - Normal (applies Hematocrit [facility] [Volume 46.0 % to non-numeric Health Fraction] of results) System Blood Erythrocyte mean 97.3 fl 83.0 - Normal (applies MCV [facility] corpuscular 98.0 fl to non-numeric Health volume [Entitic results) System volume] by Automated count Erythrocyte mean 32.2 pg 26.0 - Normal (applies MCH [facility] corpuscular 34.0 pg to non-numeric Health hemoglobin results) System [Entitic mass] by Automated count Erythrocyte mean 33.1 33.0 - Normal (applies MCHC [facility] corpuscular {gm/dL} 37.0 to non-numeric Health hemoglobin gm/dL results) System concentration [Mass/volume] by Automated count Erythrocyte 13.2 % 11.5 - Normal (applies RDW-CV [facility] distribution 14.5 % to non-numeric Health width [Entitic results) System volume] by Automated count Platelets 207 130 - Normal (applies Platelet Count [facility] [#/volume] in {10^3_u 400 to non-numeric Health Plasma by L} 10^3 uL results) System Automated count Platelet mean 9.5 fl 7.4 - Normal (applies MPV [facility] volume [Entitic 10.4 fl to non-numeric Health volume] in Blood results) System by Automated count Monocytes 0.6 0.3 - Normal (applies Monocyte # [facility] [#/volume] in {10^3_u 0.9 to non-numeric Health Blood by Manual L} 10^3 uL results) System count Eosinophils 0.26 0.05 - Normal (applies Eosinophil # [facility] [#/volume] in {10^3_u 0.30 to non-numeric Health Blood L} 10^3 uL results) System Neutrophils 6.5 2.0 - Normal (applies Neutrophil # [facility] [#/volume] in {10^3_u 8.1 to non-numeric Health Body fluid L} 10^3 uL results) System Basophils 0.05 0.00 - Normal (applies Basophil # [facility] [#/volume] in {10^3_u 0.10 to non-numeric Health Blood by L} 10^3 uL results) System Automated count Lymphocyte # 1.9 1.0 - Normal (applies Lymphocyte # [facility] {10^3_u 5.5 to non-numeric Health L} 10^3 uL results) System Neutrophils/100 70.0 % 55.0 - Normal (applies Neutrophil % [facility] jos[facility] leukocytes in 75.0 % to non-numeric Health Blood by results) System Automated count Monocytes/100 6.0 % 6.0 - Normal (applies Monocyte % [facility] leukocytes in 9.0 % to non-numeric Health Blood results) System Eosinophils/100 2.8 % 0.0 - Normal (applies Eosinophil % [facility] josy leukocytes in 4.0 % to non-numeric Health Unspecified results) System specimen Basophils/100 0.5 % 0.0 - Normal (applies Basophil % [facility] leukocytes in 1.0 % to non-numeric Health Unspecified results) System specimen by Manual count Lymphocytes 20.4 % 21.0 - Below low normal Lymphocyte % [facility] [#/volume] in 51.0 % Health Blood by System Automated count Immature 0.3 % 0.0 - Normal (applies Immature [facility] Granulocytes % 0.8 % to non-numeric Granulocytes % Healt h results) System Nucleated 0.0 0.0 - Normal (applies NRBC % [facility] erythrocytes {/100_W 0.0 to non-numeric Health [#/volume] in BC} /100 results) System Body fluid WBC Immature 0.03 0.00 - Normal (applies Immature [facility] Granulocytes # {10^3_u 0.09 to non-numeric Granulocytes # [facility]alt [facility] L} 10^3 uL results) System NRBC # 0.00 0.90 - Below low normal NRBC # [facility] {10^3_u 11.20 Health L} 10^3 uL System ID Date Data Source [id number] 11/26/2016 05:10:00 AM EST [facility] Name Value Range Interpretation Description Data Sup porting Code Source(s) Document(s ) Sodium 143 137 - Normal (applies Sodium, Serum [facility] [Moles/volume] in mmol/L 145 to non-numeric Health Serum or Plasma mmol/L results) System Potassium 3.4 3.6 - Below low normal Potassium, [facility] [Mass/volume] in mmol/L 5.0 Serum Health Serum or Plasma mmol/L System Chloride 110 98 - Above high Chloride, [facility] [Moles/volume] in mmol/L 107 normal Serum Health Serum or Plasma mmol/L System Carbon dioxide, 25.0 22.0 - Normal (applies CO2, Serum [facility] total mmol/L 30.0 to non-numeric Health [Moles/volume] in mmol/L results) System Serum or Plasma Total Protein 5.8 6.3 - Below low normal Total Protein Reynaldo josy mg/dl 8.2 Health mg/dl System Glucose 62 65 - Below low normal Glucose, [facility] [Mass/volume] in mg/dL 105 Serum Health Serum or Plasma mg/dL System Urea nitrogen 9 mg/dl 7 - 18 Normal (applies Blood Urea [facility] [Mass/volume] in mg/dl to non-numeric Nitrogen, Health Serum or Plasma results) Serum System Creatinine 0.90 0.70 - Normal (applies Creatinine, [facility] [Mass/volume] in mg/dl 1.20 to non-numeric Serum Health Serum or Plasma mg/dl results) System Alkaline 51 38 - Normal (applies Alkaline [facility] phosphatase {IU/L} 126 to non-numeric Phosphatase, Health isoenzymes IU/L results) Serum System [Enzymatic activity/volume] in Serum or Plasma by Heat stability Bilirubin direct 0.5 0.2 - Normal (applies Bilirubin, [facility] and total panel mg/dl 1.3 to non-numeric Serum Total Health [Mass/volume] - mg/dl results) System Serum or Plasma Direct Bilirubin 0.2 0.0 - Normal (applies Direct [facility] mg/dl 0.4 to non-numeric Bilirubin Health mg/dl results) System Aspartate 27 5 - 40 Normal (applies Aspartate [facility] aminotransferase {IU/L} IU/L to non-numeric Transaminase, Heal th [Enzymatic results) Serum System activity/volume] in Serum or Plasma by With P-5'-P Albumin 3.5 3.9 - Below low normal Albumin, [facility] [Mass/volume] in {gm/dl} 5.0 Serum Health Serum or Plasma gm/dl System I. Phosphorus 3.6 2.5 - Normal (applies I. Phosphorus [facility] mg/dl 4.5 to non-numeric Health mg/dl results) System Alanine 17 7 - 56 Normal (applies Alanine [facility] aminotransferase {IU/L} IU/L to non-numeric Aminotransfer Heal th [Enzymatic results) ase, Serum System activity/volume] in Serum or Plasma Calcium 8.2 8.4 - Below low normal Calcium, [facility] [Mass/volume] in mg/dl 10.2 Total Serum Health Serum or Plasma mg/dl System A/G Ratio 1.52 Normal (applies A/G Ratio [facility] to non-numeric Health results) System Urate 4.9 2.5 - Normal (applies Uric Acid, [facility] [Mass/volume] in mg/dl 7.5 to non-numeric Serum Health Serum or Plasma mg/dl results) System Anion gap in Serum 8.00 8.00 - Normal (applies Anion Gap Reynaldo josy or Plasma mmol/L 12.00 to non-numeric Health mmol/L results) System Glomerular 66.78 Normal (applies GFR [facility] filtration to non-numeric Health rate/1.73 sq results) System M.predicted [Volume Rate/Area] in Serum or Plasma by Creatinine-based formula (CKD-EPI) eGFR will provide clinicians with a more accurate indicator of renal function then the serum creatinine. The eGFR is automa tically calculated from an empiric formula (endorsed by the [employer] ion) which incorporates age, sex, and race.Clinicians may notice surprisingly low GFR's with serum creatinine valueswithin normal range- particularly in elderly wo men (with low muscle mass).In the hospital setting, the eGFR should add an element of safety in drug dosing, in assessing the risk of IV contrast administration, and in assessing vascular risk.The NKF staging system is as follows:Normal: eGFR >90 with no kidney markersStage 1: eGFR >90 with kidney markers*Stage 2: eGFR 60- 89Stage 3: eGFR 30-59Stage 4: eGFR 15-29Stage 5: eGFR <15 (usually requir ing dialysis)*Markers include: Proteinuria, Hematuria, abnormal imaging-studies, or other blood or urine test abnormalities ID Date Data Source [id number] 11/26/2016 05:10:00 AM LORE [place] System Name Value Range Interpretation Description Data Sup porting Code Source(s) Document(s ) Magnesium 1.7 1.7 - Normal (applies Magnesium, [facility] [Mass/volume {mEq/L} 2.2 to non-numeric Serum Health Syste m ] in Serum mEq/L results) or Plasma ID Date Data Source [id number] 11/26/2016 05:10:00 AM LORE [facility] System Name Value Range Interpretation Description Data Sup porting Code Source(s) Document(s ) Valproate 47.1 "." Normal (applies Valproic Acid [facility] [Mass/volume ug/ml ug/ml to non-numeric Level, Serum Health Sy stem ] in Serum results) or Plasma Therapeutic 50 - 100Toxic >100 ug/mL ID Date Data Source [id number] 11/25/2016 10:35:00 PM L[facility] [place] System Name Value Range Interpretation Description Data Sup porting Code Source(s) Document(s ) pH 7.455 7.350 - Above high normal pH [facility] {pH_unit 7.450 pH Health s} units System Carbon dioxide 41.5 32.0 - Normal (applies pCO2, [facility] [Partial {mm_Hg} 45.0 mm to non-numeric Arterial Health pressure] in Hg results) System Arterial blood Oxygen 188.0 83.0 - Above high normal pO2, Aterial [facility] [Partial {mm_Hg} 108.0 mm Health pressure] in Hg System Arterial blood Base Excess. 5.3 -3.0 - Above high normal Base Excess. [facility] mmol/L 3.0 Health mmol/L System Bicarbonate 29.2 20.0 - Above high normal HCO3 [facility] [Moles/volume] mmol/L 26.0 Health in Venous mmol/L System blood O2 Saturation > 99.1 95.0 - Above high normal O2 Saturation [facility] 99.0 % Health System Sodium, WB 141 137 - Normal (applies Sodium, WB [facility] mmol/L 145 to non-numeric Health mmol/L results) System ok Potassium, WB 3.4 mmol/L 3.6 - 5.0 Below low Potassium, WB [facility] mmol/L normal System ok Chloride, WB 106 mmol/L 98 - 107 Normal (applies Chloride, WB [facility] mmol/L to non-numeric Health System results) Glucose, WB 82 mg/dL 70 - 105 Normal (applies Glucose, WB [facility] mg/dL to non-numeric Health System results) ok Ionized 1.19 mmol/L 1.15 - 1.29 Normal (applies Ionized [facility] Calcium mmol/L to non-numeric Calcium Health System results) Lactate 0.8 mmol/L 0.5 - 1.6 Normal (applies Lactate [facility] [Mass/volume] mmol/L to non-numeric Health Syst em in Serum or results) Plasma ID Date Data Source [id number] 11/25/2016 10:01:00 PM EST [facility] Name Value Range Interpretation Description Data Sup porting Code Source(s) Document(s ) pH 7.391 7.350 - Normal (applies pH [facility] {pH_unit 7.450 pH to non-numeric Health s} units results) System Carbon dioxide 19.7 32.0 - Below low normal pCO2, [facility] [Partial {mm_Hg} 45.0 mm Arterial Health pressure] in Hg System Arterial blood Oxygen 54.3 83.0 - Below low normal pO2, Aterial [facility] [Partial {mm_Hg} 108.0 mm Health pressure] in Hg System Arterial blood Base Excess. -13.0 -3.0 - Below low normal Base Excess. [facility] mmol/L 3.0 Health mmol/L System Bicarbonate 11.9 20.0 - Below low normal HCO3 [facility] [Moles/volume] mmol/L 26.0 Health in Venous mmol/L System blood TCO2 11.8 24.0 - Below low normal TCO2 [facility] mmol/L 30.0 Health mmol/L System O2 Saturation 90.5 % 95.0 - Below low normal O2 Saturation Reynal[facility] josy 99.0 % Health System Sodium, WB 147 137 - Above high normal Sodium, WB [facility] mmol/L 145 Health mmol/L System Potassium, WB 1.3 3.6 - Below lower panic Potassium, WB [facility] mmol/L 5.0 limits Health mmol/L System ok Glucose, WB 33 mg/dL 70 - 105 mg/dL Below lower Glucose, WB [facility] Health panic limits System ok Ionized 0.66 mmol/L 1.15 - 1.29 Below lower Ionized [facility] Calcium mmol/L panic limits Calcium System ID Date Data Source [id number] 11/25/2016 07:53:00 PM EST [facility] Name Value Range Interpretation Description Data Sup porting Code Source(s) Document(s ) Copper Cancelled Copper, Serum [facility] [Mass/vol specimen was Health System ume] in drawn in the Serum or wrong Plasma tube.spoke to nurse po. ID Date Data Source [id number] 11/25/2016 07:53:00 PM EST [facility] Name Value Range Interpretation Description Data Sup porting Code Source(s) Document(s ) Creatine 341 30 - 135 Above high normal Creatine [facility] kinase.MB {IU/L} IU/L Kinase, Serum Health System [Mass/volum e] in Serum or Plasma ID Date Data Source [id number] 11/25/2016 07:31:00 PM EST [facility] Name Value Range Interpretation Description Data Sup porting Code Source(s) Document(s ) pH 7.401 7.350 - Normal (applies pH [facility] {pH_unit 7.450 pH to non-numeric Health s} units results) System Carbon dioxide 47.9 32.0 - Above high normal pCO2, [facility] [Partial {mm_Hg} 45.0 mm Arterial Health pressure] in Hg System Arterial blood Oxygen 202.0 83.0 - Above high normal pO2, Aterial [facility] [Partial {mm_Hg} 108.0 mm Health pressure] in Hg System Arterial blood Base Excess. 4.9 -3.0 - Above high normal Base Excess. [facility] mmol/L 3.0 Health mmol/L System Bicarbonate 29.7 20.0 - Above high normal HCO3 [facility] [Moles/volume] mmol/L 26.0 Health in Venous mmol/L System blood Sodium, WB 144 137 - Normal (applies Sodium, WB [facility] mmol/L 145 to non-numeric Health mmol/L results) System Potassium, WB 3.6 3.6 - Normal (applies Potassium, WB [facility] mmol/L 5.0 to non-numeric Health mmol/L results) System Chloride, WB 104 98 - 107 Normal (applies Chloride, WB [facility] mmol/L mmol/L to non-numeric Health results) System Glucose, WB 85 mg/dL 70 - 105 Normal (applies Glucose, WB [facility] mg/dL to non-numeric Health results) System Ionized 1.22 1.15 - Normal (applies Ionized [facility] Calcium mmol/L 1.29 to non-numeric Calcium Health mmol/L results) System Lactate 0.6 0.5 - Normal (applies Lactate [facility] [Mass/volume] mmol/L 1.6 to non-numeric Health in Serum or mmol/L results) System Plasma ID Date Data Source [id number] 11/25/2016 06:48:00 PM EST [facility] Name Value Range Interpretation Description Data Sup porting Code Source(s) Document(s ) Bacteria NO GROWTH Culture [facility] identified in Bacteria Blood Health Syst em Blood by [facility] culture ID Date Data Source [id number] 11/25/2016 06:48:00 PM EST [facility] Name Value Range Interpretation Description Data Sup porting Code Source(s) Document(s ) Bacteria NO GROWTH Culture [facility] identified in Bacteria Blood Health Syst em Blood by [facility] culture ID Date Data Source [id number] 11/25/2016 06:01:00 PM EST [facility] Name Value Range Interpretation Description Data Sup porting Code Source(s) Document(s ) Valproate 38.5 "." Normal (applies Valproic Acid [facility] [Mass/volume ug/ml ug/ml to non-numeric Level, Serum Health Sy stem ] in Serum results) or Plasma Therapeutic 50 - 100Toxic >100 ug/mL ID Date Data Source [id number] 11/25/2016 03:46:00 PM EST [facility] Name Value Range Interpretation Description Data Sup porting Code Source(s) Document(s ) Color YELLOW Yellow Normal (applies Color [facility] to non-numeric Health results) System Appearance of SL CLOUDY Clear Normal (applies Urine [facility] Urine to non-numeric Appearance Health results) System Specific 1.020 1.001 - Normal (applies Urine Specific [facility] gravity of 1.035 to non-numeric [facility] Urine results) System pH.. 6.0 4.6 - 8.0 Normal (applies pH.. [facility] {pH_units} pH units to non-numeric Health results) System Glucose, UA NEGATIVE < 50 Normal (applies Glucose, UA [facility] mg/dl to non-numeric Health results) System Protein TRACE < 30 Normal (applies Protein [facility] [Mass/volume] mg/dl to non-numeric Health in Serum or results) System Plasma Bilirubin NEGATIVE Negative Normal (applies Bilirubin [facility] Urine Sm to Lg to non-numeric Urine Health results) System Urobilinogen 0.2 mg/dL 0.2 - 1.0 Normal (applies Urobilinogen [facility] [Mass/volume] mg/dL to non-numeric UA Health in Urine results) System Ketones NEGATIVE Negative Normal (applies Ketones UA [facility] [Mass/volume] mg/dL to non-numeric Health in Urine results) System Nitrate+Nitrit NEGATIVE Negative Normal (applies Nitrite [facility] Neg/Pos to non-numeric Health [Mass/volume] results) System in Unspecified specimen Leukocyte SMALL Negative Abnormal Leukocyte [facility] esterase Tr to Lg (applies to Esterase Health [Units/volume] non-numeric Concentration System in Urine results) Leukocytes 10 {/HPF} 0 - 2 Normal (applies White Blood [facility] [#/volume] in /HPF to non-numeric Cells Health Unspecified results) System specimen by Automated count Red Blood 5 {/HPF} 0 - 1 Normal (applies Red Blood [facility] Cells /HPF to non-numeric Cells Health results) System Renal 2 {/HPF} 0 /HPF Normal (applies Renal [facility] Epithelial to non-numeric Epithelial Health results) System Epithelial 10 {/HPF} 0 - 3 Normal (applies Epithelial [facility] cells /HPF to non-numeric Cells Health [Presence] in results) System Unspecified specimen by Wet preparation Hyaline casts 3 {/LPF} 0 - 1 Normal (applies Hyaline Casts [facility] [#/area] in /LPF to non-numeric Health Urine sediment results) System by Microscopy high power field Bacteria 15+ 0 - 1+ Abnormal Bacteria [facility] [Presence] in /HPF (applies to Health Unspecified non-numeric System specimen results) Urine Blood MODERATE Negative Abnormal Urine Blood [facility] Sm to Lg (applies to Health non-numeric System results) ID Date Data Source [id number] 11/25/2016 03:46:00 PM EST [facility] Name Value Range Interpretation Description Data Sup porting Code Source(s) Document(s ) Leukocytes 9.2 4.8 - Normal (applies WBC Count [facility] [#/volume] in {10^3_u 10.8 to non-numeric Health Unspecified L} 10^3 uL results) System specimen by Automated count Erythrocytes 4.25 3.80 - Normal (applies RBC Count [facility] [#/volume] in {10^6_u 5.20 to non-numeric Health Blood by L} 10^6 uL results) System Automated count Hemoglobin 13.4 12.0 - Normal (applies Hemoglobin [facility] [Mass/volume] in {gm/dL} 16.0 to non-numeric Health Blood gm/dL results) System Hematocrit 41.0 % 36.0 - Normal (applies Hematocrit [facility] [Volume 46.0 % to non-numeric Health Fraction] of results) System Blood Erythrocyte mean 96.5 fl 83.0 - Normal (applies MCV [facility] corpuscular 98.0 fl to non-numeric Health volume [Entitic results) System volume] by Automated count Erythrocyte mean 31.5 pg 26.0 - Normal (applies MCH [facility] corpuscular 34.0 pg to non-numeric Health hemoglobin results) System [Entitic mass] by Automated count Erythrocyte mean 32.7 33.0 - Below low normal MCHC [facility] corpuscular {gm/dL} 37.0 Health hemoglobin gm/dL System concentration [Mass/volume] by Automated count Erythrocyte 13.2 % 11.5 - Normal (applies RDW-CV [facility] distribution 14.5 % to non-numeric Health width [Entitic results) System volume] by Automated count Platelets 307 130 - Normal (applies Platelet Count [facility] [#/volume] in {10^3_u 400 to non-numeric Health Plasma by L} 10^3 uL results) System Automated count Platelet mean 10.3 fl 7.4 - Normal (applies MPV [facility] volume [Entitic 10.4 fl to non-numeric Health volume] in Blood results) System by Automated count Monocytes 0.7 0.3 - Normal (applies Monocyte # [facility] [#/volume] in {10^3_u 0.9 to non-numeric Health Blood by Manual L} 10^3 uL results) System count Eosinophils 0.23 0.05 - Normal (applies Eosinophil # [facility] [#/volume] in {10^3_u 0.30 to non-numeric Health Blood L} 10^3 uL results) System Neutrophils 5.1 2.0 - Normal (applies Neutrophil # [facility] [#/volume] in {10^3_u 8.1 to non-numeric Health Body fluid L} 10^3 uL results) System Basophils 0.08 0.00 - Normal (applies Basophil # [facility] [#/volume] in {10^3_u 0.10 to non-numeric Health Blood by L} 10^3 uL results) System Automated count Lymphocyte # 3.1 1.0 - Normal (applies Lymphocyte # [facility] {10^3_u 5.5 to non-numeric Health L} 10^3 uL results) System Neutrophils/100 55.2 % 55.0 - Normal (applies Neutrophil % [facility] josy leukocytes in 75.0 % to non-numeric Health Blood by results) System Automated count Monocytes/100 7.4 % 6.0 - Normal (applies Monocyte % [facility] leukocytes in 9.0 % to non-numeric Health Blood results) System Eosinophils/100 2.5 % 0.0 - Normal (applies Eosinophil % [facility] jos[facility] leukocytes in 4.0 % to non-numeric Health Unspecified results) System specimen Basophils/100 0.9 % 0.0 - Normal (applies Basophil % [facility] leukocytes in 1.0 % to non-numeric Health Unspecified results) System specimen by Manual count Lymphocytes 33.7 % 21.0 - Normal (applies Lymphocyte % [facility] [#/volume] in 51.0 % to non-numeric Health Blood by results) System Automated count Immature 0.3 % 0.0 - Normal (applies Immature [facility] Granulocytes % 0.8 % to non-numeric Granulocytes % Healt h results) System Nucleated 0.0 0.0 - Normal (applies NRBC % [facility] erythrocytes {/100_W 0.0 to non-numeric Health [#/volume] in BC} /100 results) System Body fluid WBC Immature 0.03 0.00 - Normal (applies Immature [facility] Granulocytes # {10^3_u 0.09 to non-numeric Granulocytes # Healt h L} 10^3 uL results) System NRBC # 0.00 0.90 - Below low normal NRBC # [facility] {10^3_u 11.20 Health L} 10^3 uL System ID Date Data Source [id number] 11/25/2016 03:46:00 PM EST [facility] Name Value Range Interpretation Description Data Sup porting Code Source(s) Document(s ) HCG NEGATIVE Negative Normal (applies HCG [facility] Qualitative mIU/ml to non-numeric Qualitative Health results) System Default Normal RangesNegative <5Indeterm inate 5-25(Please repeat in 2 days.)Positive >25 ID Date Data Source [id number] 11/25/2016 03:46:00 PM EST [facility] Name Value Range Interpretation Description Data Sup porting Code Source(s) Document(s ) Sodium 142 137 - Normal (applies Sodium, Serum [facility] [Moles/volume] in mmol/L 145 to non-numeric Health Serum or Plasma mmol/L results) System Potassium 4.0 3.6 - Normal (applies Potassium, [facility] [Mass/volume] in mmol/L 5.0 to non-numeric Serum Health Serum or Plasma mmol/L results) System Chloride 102 98 - Normal (applies Chloride, [facility] [Moles/volume] in mmol/L 107 to non-numeric Serum Health Serum or Plasma mmol/L results) System Carbon dioxide, 27.0 22.0 - Normal (applies CO2, Serum [facility] total mmol/L 30.0 to non-numeric Health [Moles/volume] in mmol/L results) System Serum or Plasma Total Protein 6.9 6.3 - Normal (applies Total Protein [facility] mg/dl 8.2 to non-numeric Health mg/dl results) System Glucose 70 65 - Normal (applies Glucose, [facility] [Mass/volume] in mg/dL 105 to non-numeric Serum Health Serum or Plasma mg/dL results) System Urea nitrogen 11 7 - 18 Normal (applies Blood Urea [facility] [Mass/volume] in mg/dl mg/dl to non-numeric Nitrogen, Health Serum or Plasma results) Serum System Creatinine 1.20 0.70 - Normal (applies Creatinine, [facility] [Mass/volume] in mg/dl 1.20 to non-numeric Serum Health Serum or Plasma mg/dl results) System Alkaline 57 38 - Normal (applies Alkaline [facility] phosphatase {IU/L} 126 to non-numeric Phosphatase, Health isoenzymes IU/L results) Serum System [Enzymatic activity/volume] in Serum or Plasma by Heat stability Bilirubin.total 0.2 0.2 - Normal (applies Bilirubin, [facility] [Mass/volume] in mg/dl 1.3 to non-numeric Serum Total Health Serum or Plasma mg/dl results) System Direct Bilirubin 0.1 0.0 - Normal (applies Direct [facility] mg/dl 0.4 to non-numeric Bilirubin Health mg/dl results) System Aspartate 25 5 - 40 Normal (applies Aspartate [facility] aminotransferase {IU/L} IU/L to non-numeric Transaminase, Heal th [Enzymatic results) Serum System activity/volume] in Serum or Plasma by With P-5'-P Albumin 4.2 3.9 - Normal (applies Albumin, [facility] [Mass/volume] in {gm/dl} 5.0 to non-numeric Serum Health Serum or Plasma gm/dl results) System I. Phosphorus 3.9 2.5 - Normal (applies I. Phosphorus [facility] mg/dl 4.5 to non-numeric Health mg/dl results) System Alanine 20 7 - 56 Normal (applies Alanine [facility] aminotransferase {IU/L} IU/L to non-numeric Aminotransfer Heal th [Enzymatic results) ase, Serum System activity/volume] in Serum or Plasma Calcium 9.8 8.4 - Normal (applies Calcium, [facility] [Mass/volume] in mg/dl 10.2 to non-numeric Total Serum Health Serum or Plasma mg/dl results) System A/G Ratio 1.56 Normal (applies A/G Ratio [facility] to non-numeric Health results) System Urate 5.9 2.5 - Normal (applies Uric Acid, [facility] [Mass/volume] in mg/dl 7.5 to non-numeric Serum Health Serum or Plasma mg/dl results) System Anion gap in Serum 13.00 8.00 - Above high Anion Gap [facility] or Plasma mmol/L 12.00 normal Health mmol/L System Glomerular 47.92 Normal (applies GFR [facility] filtration to non-numeric Health rate/1.73 sq results) System M.predicted [Volume Rate/Area] in Serum or Plasma by Creatinine-based formula (CKD-EPI) eGFR will provide clinicians with a more accurate indicator of renal function then the serum creatinine. The eGFR is automa tically calculated from an empiric formula (endorsed by the [employer] ion) which incorporates age, sex, and race.Clinicians may notice surprisingly low GFR's with serum creatinine valueswithin normal range- particularly in elderly wo men (with low muscle mass).In the hospital setting, the eGFR should add an element of safety in drug dosing, in assessing the risk of IV contrast administration, and in assessing vascular risk.The NKF staging system is as follows:Normal: eGFR >90 with no kidney markersStage 1: eGFR >90 with kidney markers*Stage 2: eGFR 60- 89Stage 3: eGFR 30-59Stage 4: eGFR 15-29Stage 5: eGFR <15 (usually requir ing dialysis)*Markers include: Proteinuria, Hematuria, abnormal imaging-studies, or other blood or urine test abnormalities ID Date Data Source [id number] 11/25/2016 03:46:00 PM EST [facility] Name Value Range Interpretation Description Data Sup porting Code Source(s) Document(s ) Phenytoin < 0.50 10.0 - Below low normal Phenytoin [facility] [Mass/volume 20.0 Level, [facility] ] in Serum ug/ml or Plasma ID Date Data Source [id number] 11/25/2016 03:46:00 PM EST [facility] Name Value Range Interpretation Description Data Sup porting Code Source(s) Document(s ) Magnesium 2.4 1.7 - Above high normal Magnesium, [facility] [Mass/volume {mEq/L} 2.2 [facility] ] in Serum mEq/L or Plasma ID Date Data Source [id number] 11/25/2016 03:46:00 PM EST [facility] Name Value Range Interpretation Description Data Sup porting Code Source(s) Document(s ) Amphetamine Negative Negative Normal (applies Amphetamine [facility] [Mass/volume] ng/ml to non-numeric Level, Urine Health in Urine results) System Cut-off = 1000 ng/mL Barbiturates Negative Negative Normal (applies Barbiturate [facility] [Mass/volume] in ng/ml to non-numeric Screen, Urine Heal th System Urine by Screen results) method Cut-off = 200 ng/mL Benzodiazepines Negative Negative Normal Benzodiazepines, [facility] [Mass/volume] in ng/mL (applies to Urine Health Urine non-numeric System results) Cut-off = 200 ng/mL Cocaine Negative Negative Normal (applies Cocaine [facility] metabolites.other ng/ml to non-numeric [facility] [Mass/volume] in results) Screen, Urine Urine Cut-off = 300 ng/mL Methadone Negative Negative Normal (applies Methadone [facility] [Mass/volume] in to non-numeric Level, Urine Healt h System Urine results) Cut-off = 300 ng/mL Opiate 300, Negative Negative ng/ml Normal (applies to Opiate 300, [facility] Urine non-numeric Urine [facility] results) Cut-off = 300 ng/mL Phencyclidine Positive Negative Abnormal Phencyclidine, [facility] [Mass/volume] in ng/ml (applies to Urine Health Syst em Urine non-numeric results) Cut-off = 25 ng/mL Cannabinoid Negative Negative Normal (applies Cannabinoid [facility] (THC) ng/mL to non-numeric (THC) Health System results) Cutt-off = 50These results are for medic al treatment only. The positive findings are unconfirmed. Request confirmatory/quanti tative test if needed. ID Date Data Source [id number] 08/13/2016 06:00:00 AM EDT [facility] Name Value Range Interpretation Description Data Sup porting Code Source(s) Document(s ) Leukocytes Cancelled WBC Count [facility] [#/volume] in [facility] Unspecified sample, System specimen by please Automated count resubmit.No tified Jenny at 07:49am. Erythrocytes Cancelled RBC Count [facility] [#/volume] in [facility] Blood by sample, System Automated count please resubmit.No tified Jenny at 07:49am. Hemoglobin Cancelled Hemoglobin [facility] [Mass/volume] [facility] in Blood sample, System please resubmit.No tified Jenny at 07:49am. Hematocrit Cancelled Hematocrit [facility] [Volume [facility] Fraction] of sample, System Blood please resubmit.No tified Jenny at 07:49am. Erythrocyte Cancelled MCV [facility] mean [facility] corpuscular sample, System volume [Entitic please volume] by resubmit.No Automated count tified Jenny at 07:49am. Erythrocyte Cancelled MCH [facility] mean [facility] corpuscular sample, System hemoglobin please [Entitic mass] resubmit.No by Automated tified count Jenny at 07:49am. Erythrocyte Cancelled MCHC [facility] mean [facility] corpuscular sample, System hemoglobin please concentration resubmit.No [Mass/volume] tified by Automated Jenny at count 07:49am. Erythrocyte Cancelled RDW-CV [facility] distribution [facility] width [Entitic sample, System volume] by please Automated count resubmit.No tified Jenny at 07:49am. Platelets Cancelled Platelet [facility] [#/volume] in [facility] Plasma by sample, System Automated count please resubmit.No tified Jenny at 07:49am. Platelet mean Cancelled MPV [facility] volume [Entitic [facility] volume] in sample, System Blood by please Automated count resubmit.No tified Jenny at 07:49am. Monocytes Cancelled Monocyte # [facility] [#/volume] in [facility] Blood by Manual sample, System count please resubmit.No tified Jenny at 07:49am. Eosinophils Cancelled Eosinophil # [facility] [#/volume] in [facility] Blood sample, System please resubmit.No tified Jenny at 07:49am. Neutrophils Cancelled Neutrophil # [facility] [#/volume] in [facility] Body fluid sample, System please resubmit.No tified Jenny at 07:49am. Basophils Cancelled Basophil # [facility] [#/volume] in [facility] Blood by sample, System Automated count please resubmit.No tified Jenny at 07:49am. Lymphocyte # Cancelled Lymphocyte # [facility] sample, System please resubmit.No tified Jenny at 07:49am. Neutrophils/100 Cancelled Neutrophil % [facility] leukocytes in [facility] Blood by sample, System Automated count please resubmit.No tified Jenny at 07:49am. Monocytes/100 Cancelled Monocyte % [facility] leukocytes in [facility] Blood sample, System please resubmit.No tified Jenny at 07:49am. Eosinophils/100 Cancelled Eosinophil % [facility] leukocytes in [facility] Unspecified sample, System specimen please resubmit.No tified Jenny at 07:49am. Basophils/100 Cancelled Basophil % [facility] leukocytes in [facility] Unspecified sample, System specimen by please Manual count resubmit.No tified Jenny at 07:49am. Lymphocytes Cancelled Lymphocyte % [facility] [#/volume] in [facility] Blood by sample, System Automated count please resubmit.No tified Jenny at 07:49am. ID Date Data Source [id number] 08/13/2016 06:00:00 AM EDT [facility] Name Value Range Interpretation Description Data Sup porting Code Source(s) Document(s ) Sodium 144 137 - Normal (applies Sodium, Serum [facility] [Moles/volume] in mmol/L 145 to non-numeric Health Serum or Plasma mmol/L results) System Potassium 3.7 3.6 - Normal (applies Potassium, [facility] [Mass/volume] in mmol/L 5.0 to non-numeric Serum [facility] Serum or Plasma mmol/L results) System Chloride 112 98 - Above high Chloride, [facility] [Moles/volume] in mmol/L 107 normal Serum [facility] Serum or Plasma mmol/L System Carbon dioxide, 25.0 22.0 - Normal (applies CO2, Serum [facility] total mmol/L 30.0 to non-numeric Health [Moles/volume] in mmol/L results) System Serum or Plasma Total Protein 4.8 6.3 - Below low normal Total Protein [facility] josy mg/dl 8.2 Health mg/dl System Glucose 67 65 - Normal (applies Glucose, [facility] [Mass/volume] in mg/dL 105 to non-numeric Serum [facility] Serum or Plasma mg/dL results) System Urea nitrogen 15 7 - 18 Normal (applies Blood Urea [facility] [Mass/volume] in mg/dl mg/dl to non-numeric Nitrogen, Health Serum or Plasma results) Serum System Creatinine 0.71 0.70 - Normal (applies Creatinine, [facility] [Mass/volume] in mg/dl 1.20 to non-numeric Serum [facility] Serum or Plasma mg/dl results) System Alkaline 41 38 - Normal (applies Alkaline [facility] phosphatase {IU/L} 126 to non-numeric Phosphatase, Health isoenzymes IU/L results) Serum System [Enzymatic activity/volume] in Serum or Plasma by Heat stability Bilirubin.total 0.4 0.2 - Normal (applies Bilirubin, [facility] [Mass/volume] in mg/dl 1.3 to non-numeric Serum Total Health Serum or Plasma mg/dl results) System Direct Bilirubin 0.2 0.0 - Normal (applies Direct [facility] mg/dl 0.4 to non-numeric Bilirubin [facility] mg/dl results) System Aspartate 19 5 - 40 Normal (applies Aspartate [facility] aminotransferase {IU/L} IU/L to non-numeric Transaminase, Heal th [Enzymatic results) Serum System activity/volume] in Serum or Plasma by With P-5'-P Albumin 2.9 3.9 - Below low normal Albumin, [facility] [Mass/volume] in {gm/dl} 5.0 Serum Health Serum or Plasma gm/dl System I. Phosphorus 2.7 2.5 - Normal (applies I. Phosphorus [facility] mg/dl 4.5 to non-numeric Health mg/dl results) System Alanine 14 7 - 56 Normal (applies Alanine [facility] aminotransferase {IU/L} IU/L to non-numeric Aminotransfer Heal th [Enzymatic results) ase, Serum System activity/volume] in Serum or Plasma Calcium 7.9 8.4 - Below low normal Calcium, [facility] [Mass/volume] in mg/dl 10.2 Total Serum Health Serum or Plasma mg/dl System A/G Ratio 1.53 Normal (applies A/G Ratio [facility] to non-numeric Health results) System Urate 5.4 2.5 - Normal (applies Uric Acid, [facility] [Mass/volume] in mg/dl 7.5 to non-numeric Serum Health Serum or Plasma mg/dl results) System Anion gap in Serum 7.00 8.00 - Below low normal Anion Gap [facility] or Plasma mmol/L 12.00 Health mmol/L System Glomerular 87.91 Normal (applies GFR [facility] filtration to non-numeric Health rate/1.73 sq results) System M.predicted [Volume Rate/Area] in Serum or Plasma by Creatinine-based formula (CKD-EPI) eGFR will provide clinicians with a more accurate indicator of renal function then the serum creatinine. The eGFR is automa tically calculated from an empiric formula (endorsed by the [employer]) which incorporates age, sex, and race.Clinicians may notice surprisingly low GFR's with serum creatinine valueswithin normal range- particularly in elderly wo men (with low muscle mass).In the hospital setting, the eGFR should add an element of safety in drug dosing, in assessing the risk of IV contrast administration, and in assessing vascular risk.The NKF staging system is as follows:Normal: eGFR >90 with no kidney markersStage 1: eGFR >90 with kidney markers*Stage 2: eGFR 60- 89Stage 3: eGFR 30-59Stage 4: eGFR 15-29Stage 5: eGFR <15 (usually requir ing dialysis)*Markers include: Proteinuria, Hematuria, abnormal imaging-studies, or other blood or urine test abnormalities ID Date Data Source [id number] 08/13/2016 06:00:00 AM [facility] Name Value Range Interpretation Description Data Sup porting Code Source(s) Document(s ) Magnesium 1.7 1.7 - Normal (applies Magnesium, [facility] [Mass/volume {mEq/L} 2.2 to non-numeric Serum [facility] Syste m ] in Serum mEq/L results) or Plasma ID Date Data Source [id number] 08/13/2016 06:00:00 AM [facility] Name Value Range Interpretation Description Data Sup porting Code Source(s) Document(s ) Creatine 269 30 - 135 Above high normal Creatine [facility] kinase.MB {IU/L} IU/L Kinase, [facility] [Mass/volum e] in Serum or Plasma ID Date Data Source [id number] 08/12/2016 07:17:00 PM [facility] Name Value Range Interpretation Description Data Sup porting Code Source(s) Document(s ) Sodium 144 137 - Normal (applies Sodium, Serum [facility] [Moles/volume] in mmol/L 145 to non-numeric Health Serum or Plasma mmol/L results) System Potassium 3.6 3.6 - Normal (applies Potassium, [facility] [Mass/volume] in mmol/L 5.0 to non-numeric Serum Health Serum or Plasma mmol/L results) System Chloride 105 98 - Normal (applies Chloride, [facility] [Moles/volume] in mmol/L 107 to non-numeric Serum Health Serum or Plasma mmol/L results) System Carbon dioxide, 32.0 22.0 - Above high CO2, Serum [facility] total mmol/L 30.0 normal Health [Moles/volume] in mmol/L System Serum or Plasma Total Protein 5.4 6.3 - Below low normal Total Protein Reynal[facility] josy mg/dl 8.2 Health mg/dl System Glucose 82 65 - Normal (applies Glucose, [facility] [Mass/volume] in mg/dL 105 to non-numeric Serum Health Serum or Plasma mg/dL results) System Urea nitrogen 18 7 - 18 Normal (applies Blood Urea [facility] [Mass/volume] in mg/dl mg/dl to non-numeric Nitrogen, Health Serum or Plasma results) Serum System Creatinine 0.90 0.70 - Normal (applies Creatinine, [facility] [Mass/volume] in mg/dl 1.20 to non-numeric Serum [facility] Serum or Plasma mg/dl results) System Alkaline 48 38 - Normal (applies Alkaline [facility] phosphatase {IU/L} 126 to non-numeric Phosphatase, Health isoenzymes IU/L results) Serum System [Enzymatic activity/volume] in Serum or Plasma by Heat stability Bilirubin.total 0.3 0.2 - Normal (applies Bilirubin, [facility] [Mass/volume] in mg/dl 1.3 to non-numeric Serum Total [facility] Serum or Plasma mg/dl results) System Direct Bilirubin 0.2 0.0 - Normal (applies Direct [facility] mg/dl 0.4 to non-numeric Bilirubin [facility] mg/dl results) System Aspartate 22 5 - 40 Normal (applies Aspartate [facility] aminotransferase {IU/L} IU/L to non-numeric Transaminase, Heal [Enzymatic results) Serum System activity/volume] in Serum or Plasma by With P-5'-P Albumin 3.1 3.9 - Below low normal Albumin, [facility] [Mass/volume] in {gm/dl} 5.0 Serum Health Serum or Plasma gm/dl System I. Phosphorus 3.1 2.5 - Normal (applies I. Phosphorus [facility] mg/dl 4.5 to non-numeric Health mg/dl results) System Alanine 14 7 - 56 Normal (applies Alanine [facility] aminotransferase {IU/L} IU/L to non-numeric Aminotransfer Heal th [Enzymatic results) ase, Serum System activity/volume] in Serum or Plasma Calcium 8.8 8.4 - Normal (applies Calcium, [facility] [Mass/volume] in mg/dl 10.2 to non-numeric Total Serum [facility] Serum or Plasma mg/dl results) System A/G Ratio 1.35 Normal (applies A/G Ratio [facility] to non-numeric Health results) System Urate 6.7 2.5 - Normal (applies Uric Acid, [facility] [Mass/volume] in mg/dl 7.5 to non-numeric Serum Health Serum or Plasma mg/dl results) System Anion gap in Serum 7.00 8.00 - Below low normal Anion Gap [facility] or Plasma mmol/L 12.00 Health mmol/L System Glomerular 66.87 Normal (applies GFR [facility] filtration to non-numeric Health rate/1.73 sq results) System M.predicted [Volume Rate/Area] in Serum or Plasma by Creatinine-based formula (CKD-EPI) eGFR will provide clinicians with a more accurate indicator of renal function then the serum creatinine. The eGFR is automa tically calculated from an empiric formula (endorsed by the [employer]) which incorporates age, sex, and race.Clinicians may notice surprisingly low GFR's with serum creatinine valueswithin normal range- particularly in elderly wo men (with low muscle mass).In the hospital setting, the eGFR should add an element of safety in drug dosing, in assessing the risk of IV contrast administration, and in assessing vascular risk.The NKF staging system is as follows:Normal: eGFR >90 with no kidney markersStage 1: eGFR >90 with kidney markers*Stage 2: eGFR 60- 89Stage 3: eGFR 30-59Stage 4: eGFR 15-29Stage 5: eGFR <15 (usually requir ing dialysis)*Markers include: Proteinuria, Hematuria, abnormal imaging-studies, or other blood or urine test abnormalities ID Date Data Source [id number] 08/12/2016 07:17:00 PM EDT [facility] Name Value Range Interpretation Description Data Sup porting Code Source(s) Document(s ) Magnesium 1.8 1.7 - Normal (applies Magnesium, [facility] [Mass/volume {mEq/L} 2.2 to non-numeric Serum Health Syste m ] in Serum mEq/L results) or Plasma ID Date Data Source [id number] 08/12/2016 07:17:00 PM EDT [facility] Name Value Range Interpretation Description Data Sup porting Code Source(s) Document(s ) Creatine 317 30 - 135 Above high normal Creatine [facility] kinase.MB {IU/L} IU/L Kinase, [facility] [Mass/volum e] in Serum or Plasma ID Date Data Source [id number] 08/12/2016 01:19:00 PM EDT [facility] System Name Value Range Interpretation Description Data Sup porting Code Source(s) Document(s ) Color YELLOW Yellow Normal (applies Color [facility] to non-numeric Health results) System Appearance of CLEAR Clear Normal (applies Urine [facility] Urine to non-numeric Appearance Health results) System Specific > 1.030 1.001 - Normal (applies Urine Specific [facility] gravity of 1.035 to non-numeric [facility] Urine results) System pH.. 5.5 4.6 - 8.0 Normal (applies pH.. [facility] {pH_units} pH units to non-numeric Health results) System Glucose, UA NEGATIVE < 50 Normal (applies Glucose, UA [facility] mg/dl to non-numeric Health results) System Protein NEGATIVE < 30 Normal (applies Protein [facility] [Mass/volume] mg/dl to non-numeric Health in Serum or results) System Plasma Bilirubin NEGATIVE Negative Normal (applies Bilirubin [facility] Urine Sm to Lg to non-numeric Urine Health results) System Urobilinogen 0.2 mg/dL Normal (applies Urobilinogen [facility] [Mass/volume] to non-numeric UA [facility] in Urine results) System Ketones NEGATIVE Negative Normal (applies Ketones UA [facility] [Mass/volume] Tr to Lg to non-numeric Health in Urine results) System Nitrate+Nitrit NEGATIVE Negative Normal (applies Nitrite [facility] Neg/Pos to non-numeric Health [Mass/volume] results) System in Unspecified specimen Leukocyte NEGATIVE Negative Normal (applies Leukocyte [facility] esterase Tr to Lg to non-numeric Esterase Health [Units/volume] results) Concentration System in Urine Leukocytes 4 {/HPF} 0 - 2 Normal (applies White Blood [facility] [#/volume] in /HPF to non-numeric Cells [facility] Unspecified results) System specimen by Automated count Red Blood 5 {/HPF} 0 - 1 Normal (applies Red Blood [facility] Cells /HPF to non-numeric Cells Health results) System Epithelial 3 {/HPF} 0 - 3 Normal (applies Epithelial [facility] cells /HPF to non-numeric Cells [facility] [Presence] in results) System Unspecified specimen by Wet preparation Urine Blood SMALL Normal (applies Urine Blood [facility] to non-numeric Health results) System ID Date Data Source [id number] 08/12/2016 12:57:00 PM EDT [facility] Name Value Range Interpretation Description Data Sup porting Code Source(s) Document(s ) aPTT in Blood 27.3 23.9 - Normal (applies Activated [facility] by {Second 30.6 to non-numeric Partial Health Coagulation s} Seconds results) Thromboplastin System assay Time ID Date Data Source [id number] 08/12/2016 12:57:00 PM EDT [facility] Name Value Range Interpretation Description Data Sup porting Code Source(s) Document(s ) Prothrombin 10.60 9.70 - Normal (applies Prothrombin [facility] time (PT) {seconds 11.80 to non-numeric time (PT) Health } seconds results) System INR in Blood 1.05 0.70 - Normal (applies INR Result [facility] by Coagulation {Ratio} 1.10 to non-numeric Health assay Ratio results) System Normal = 0.7-1.1Therapeutic = 2.0-3.0Mec hanical Heart = 3.0-4.5 ID Date Data Source [id number] 08/12/2016 12:57:00 PM EDT [facility] Name Value Range Interpretation Description Data Sup porting Code Source(s) Document(s ) Leukocytes 9.4 4.8 - Normal (applies WBC Count [facility] [#/volume] in {10^3_uL 10.8 to non-numeric Health Unspecified } 10^3 uL results) System specimen by Automated count Erythrocytes 3.61 3.80 - Below low normal RBC Count [facility] [#/volume] in {10^6_uL 5.20 Health Blood by } 10^6 uL System Automated count Hemoglobin 11.5 12.0 - Below low normal Hemoglobin [facility] [Mass/volume] in {gm/dL} 16.0 Health Blood gm/dL System Hematocrit 36.2 % 36.0 - Normal (applies Hematocrit [facility] [Volume 46.0 % to non-numeric Health Fraction] of results) System Blood Erythrocyte mean 100.3 fl 83.0 - Above high MCV [facility] corpuscular 98.0 fl normal Health volume [Entitic System volume] by Automated count Erythrocyte mean 31.9 pg 26.0 - Normal (applies MCH [facility] corpuscular 34.0 pg to non-numeric Health hemoglobin results) System [Entitic mass] by Automated count Erythrocyte mean 31.8 33.0 - Below low normal MCHC [facility] corpuscular {gm/dL} 37.0 Health hemoglobin gm/dL System concentration [Mass/volume] by Automated count Erythrocyte 14.2 % 11.5 - Normal (applies RDW-CV [facility] distribution 14.5 % to non-numeric Health width [Entitic results) System volume] by Automated count Platelets 263 130 - Normal (applies Platelet [facility] [#/volume] in {10^3_uL 400 to non-numeric Count Health Plasma by } 10^3 uL results) System Automated count Platelet mean 9.3 fl 7.4 - Normal (applies MPV [facility] volume [Entitic 10.4 fl to non-numeric Health volume] in Blood results) System by Automated count Monocytes 0.7 0.3 - Normal (applies Monocyte # [facility] [#/volume] in {10^3_uL 0.9 to non-numeric Health Blood by Manual } 10^3 uL results) System count Eosinophils 0.27 0.05 - Normal (applies Eosinophil # [facility] [#/volume] in {10^3_uL 0.30 to non-numeric Health Blood } 10^3 uL results) System Neutrophils 5.9 2.0 - Normal (applies Neutrophil # [facility] [#/volume] in {10^3_uL 8.1 to non-numeric Health Body fluid } 10^3 uL results) System Basophils 0.03 0.00 - Normal (applies Basophil # [facility] [#/volume] in {10^3_uL 0.10 to non-numeric Health Blood by } 10^3 uL results) System Automated count Lymphocyte # 2.6 1.0 - Normal (applies Lymphocyte # [facility] {10^3_uL 5.5 to non-numeric Health } 10^3 uL results) System Neutrophils/100 62.3 % 55.0 - Normal (applies Neutrophil % Reynaldo josy leukocytes in 75.0 % to non-numeric Health Blood by results) System Automated count Monocytes/100 7.0 % 6.0 - Normal (applies Monocyte % [facility] leukocytes in 9.0 % to non-numeric Health Blood results) System Eosinophils/100 2.9 % 0.0 - Normal (applies Eosinophil % Reynaldo josy leukocytes in 4.0 % to non-numeric Health Unspecified results) System specimen Basophils/100 0.3 % 0.0 - Normal (applies Basophil % [facility] leukocytes in 1.0 % to non-numeric Health Unspecified results) System specimen by Manual count Lymphocytes 27.5 % 21.0 - Normal (applies Lymphocyte % [facility] [#/volume] in 51.0 % to non-numeric Health Blood by results) System Automated count ID Date Data Source [id number] 08/12/2016 12:57:00 PM EDT [facility] Name Value Range Interpretation Description Data Sup porting Code Source(s) Document(s ) Sodium 143 137 - Normal (applies Sodium, Serum [facility] [Moles/volume] in mmol/L 145 to non-numeric Health Serum or Plasma mmol/L results) System Potassium 3.3 3.6 - Below low normal Potassium, [facility] [Mass/volume] in mmol/L 5.0 Serum Health Serum or Plasma mmol/L System Chloride 103 98 - Normal (applies Chloride, [facility] [Moles/volume] in mmol/L 107 to non-numeric Serum Health Serum or Plasma mmol/L results) System Carbon dioxide, 31.0 22.0 - Above high CO2, Serum [facility] total mmol/L 30.0 normal Health [Moles/volume] in mmol/L System Serum or Plasma Total Protein 5.6 6.3 - Below low normal Total Protein Reynaldo josy mg/dl 8.2 Health mg/dl System Glucose 65 65 - Normal (applies Glucose, [facility] [Mass/volume] in mg/dL 105 to non-numeric Serum Health Serum or Plasma mg/dL results) System Urea nitrogen 16 7 - 18 Normal (applies Blood Urea [facility] [Mass/volume] in mg/dl mg/dl to non-numeric Nitrogen, Health Serum or Plasma results) Serum System Creatinine 0.90 0.70 - Normal (applies Creatinine, [facility] [Mass/volume] in mg/dl 1.20 to non-numeric Serum Health Serum or Plasma mg/dl results) System Alkaline 48 38 - Normal (applies Alkaline [facility] phosphatase {IU/L} 126 to non-numeric Phosphatase, Health isoenzymes IU/L results) Serum System [Enzymatic activity/volume] in Serum or Plasma by Heat stability Bilirubin.total 0.5 0.2 - Normal (applies Bilirubin, [facility] [Mass/volume] in mg/dl 1.3 to non-numeric Serum Total Health Serum or Plasma mg/dl results) System Direct Bilirubin 0.2 0.0 - Normal (applies Direct [facility] mg/dl 0.4 to non-numeric Bilirubin [facility] mg/dl results) System Aspartate 23 5 - 40 Normal (applies Aspartate [facility] aminotransferase {IU/L} IU/L to non-numeric Transaminase, Heal th [Enzymatic results) Serum System activity/volume] in Serum or Plasma by With P-5'-P Albumin 3.3 3.9 - Below low normal Albumin, [facility] [Mass/volume] in {gm/dl} 5.0 Serum Health Serum or Plasma gm/dl System I. Phosphorus 3.5 2.5 - Normal (applies I. Phosphorus [facility] mg/dl 4.5 to non-numeric Health mg/dl results) System Alanine 15 7 - 56 Normal (applies Alanine [facility] aminotransferase {IU/L} IU/L to non-numeric Aminotransfer Heal th [Enzymatic results) ase, Serum System activity/volume] in Serum or Plasma Calcium 8.9 8.4 - Normal (applies Calcium, [facility] [Mass/volume] in mg/dl 10.2 to non-numeric Total Serum Health Serum or Plasma mg/dl results) System A/G Ratio 1.43 Normal (applies A/G Ratio [facility] to non-numeric Health results) System Urate 5.6 2.5 - Normal (applies Uric Acid, [facility] [Mass/volume] in mg/dl 7.5 to non-numeric Serum Health Serum or Plasma mg/dl results) System Anion gap in Serum 9.00 8.00 - Normal (applies Anion Gap [facility]aldo josy or Plasma mmol/L 12.00 to non-numeric Health mmol/L results) System Glomerular 66.87 Normal (applies GFR [facility] filtration to non-numeric Health rate/1.73 sq results) System M.predicted [Volume Rate/Area] in Serum or Plasma by Creatinine-based formula (CKD-EPI) eGFR will provide clinicians with a more accurate indicator of renal function then the serum creatinine. The eGFR is automa tically calculated from an empiric formula (endorsed by the [employer]) which incorporates age, sex, and race.Clinicians may notice surprisingly low GFR's with serum creatinine valueswithin normal range- particularly in elderly wo men (with low muscle mass).In the hospital setting, the eGFR should add an element of safety in drug dosing, in assessing the risk of IV contrast administration, and in assessing vascular risk.The NKF staging system is as follows:Normal: eGFR >90 with no kidney markersStage 1: eGFR >90 with kidney markers*Stage 2: eGFR 60- 89Stage 3: eGFR 30-59Stage 4: eGFR 15-29Stage 5: eGFR <15 (usually requir ing dialysis)*Markers include: Proteinuria, Hematuria, abnormal imaging-studies, or other blood or urine test abnormalities ID Date Data Source [id number] 08/12/2016 12:57:00 PM EDT [facility] Name Value Range Interpretation Description Data Sup porting Code Source(s) Document(s ) Phenytoin < 0.50 10.0 - Below low normal Phenytoin [facility] [Mass/volume 20.0 Level, Serum Health System ] in Serum ug/ml or Plasma ID Date Data Source [id number] 08/12/2016 12:57:00 PM EDT [facility] Name Value Range Interpretation Description Data Sup porting Code Source(s) Document(s ) Troponin I 0.00 0.00 - Normal (applies Troponin I [facility] Quantitative ng/ml 0.04 to non-numeric Quantitative Health ng/ml results) System ID Date Data Source [id number] 08/12/2016 12:57:00 PM EDT [facility] Name Value Range Interpretation Description Data Sup porting Code Source(s) Document(s ) Amphetamine Negative Negative Normal (applies Amphetamine [facility] [Mass/volume] ng/ml to non-numeric Level, Urine [facility] in Urine results) System Cut-off = 1000 ng/mL Barbiturates Negative Negative Normal (applies Barbiturate [facility] [Mass/volume] in ng/ml to non-numeric Screen, Urine [facility]al [facility] System Urine by Screen results) method Cut-off = 200 ng/mL Benzodiazepines Positive Negative Abnormal Benzodiazepines, [facility] [Mass/volume] in ng/mL (applies to Urine Health Urine non-numeric System results) Cut-off = 200 ng/mL Cocaine Negative Negative Normal (applies Cocaine [facility] metabolites.other ng/ml to non-numeric Metabolite [facility] System [Mass/volume] in results) Screen, Urine Urine Cut-off = 300 ng/mL Methadone Negative Negative Normal (applies Methadone [facility] [Mass/volume] in to non-numeric Level, Urine Healt h System Urine results) Cut-off = 300 ng/mL Opiate 300, Negative Negative ng/ml Normal (applies to Opiate 300, [facility] Urine non-numeric Urine [facility] results) Cut-off = 300 ng/mL Phencyclidine Positive Negative Abnormal Phencyclidine, [facility] [Mass/volume] in ng/ml (applies to Urine Health Syst em Urine non-numeric results) Cut-off = 25 ng/mL Cannabinoid Positive Negative Abnormal Cannabinoid [facility] (THC) ng/mL (applies to (THC) Health System non-numeric results) Cutt-off = 50These results are for medic al treatment only. The positive findings are unconfirmed. Request confirmatory/quanti tative test if needed. ID Date Data Source [id number] 08/07/2016 04:25:00 AM EDT [facility] Name Value Range Interpretation Description Data Sup porting Code Source(s) Document(s ) Deprecated Micro Normal (applies Aerobic [facility] Bacteria Result to non-numeric Culture, Urine Health identified in Final results) System Urine by Culture Aerobe Reading culture Note::< 10,000 CFU/ML ID Date Data Source [id number] 08/07/2016 04:14:00 AM EDT [facility] Name Value Range Interpretation Description Data Sup porting Code Source(s) Document(s ) Sodium 138 137 - Normal (applies Sodium, Serum [facility] [Moles/volume] in mmol/L 145 to non-numeric Health Serum or Plasma mmol/L results) System Potassium 4.1 3.6 - Normal (applies Potassium, [facility] [Mass/volume] in mmol/L 5.0 to non-numeric Serum Health Serum or Plasma mmol/L results) System Chloride 103 98 - Normal (applies Chloride, [facility] [Moles/volume] in mmol/L 107 to non-numeric Serum Health Serum or Plasma mmol/L results) System Carbon dioxide, 25.0 22.0 - Normal (applies CO2, Serum [facility] total mmol/L 30.0 to non-numeric Health [Moles/volume] in mmol/L results) System Serum or Plasma Total Protein 6.0 6.3 - Below low normal Total Protein Reynal[facility] josy mg/dl 8.2 Health mg/dl System Glucose 97 65 - Normal (applies Glucose, [facility] [Mass/volume] in mg/dL 105 to non-numeric Serum Health Serum or Plasma mg/dL results) System Urea nitrogen 14 7 - 18 Normal (applies Blood Urea [facility] [Mass/volume] in mg/dl mg/dl to non-numeric Nitrogen, Health Serum or Plasma results) Serum System Creatinine 0.80 0.70 - Normal (applies Creatinine, [facility] [Mass/volume] in mg/dl 1.20 to non-numeric Serum Health Serum or Plasma mg/dl results) System Alkaline 62 38 - Normal (applies Alkaline [facility] phosphatase {IU/L} 126 to non-numeric Phosphatase, Health isoenzymes IU/L results) Serum System [Enzymatic activity/volume] in Serum or Plasma by Heat stability Bilirubin.total 0.8 0.2 - Normal (applies Bilirubin, [facility] [Mass/volume] in mg/dl 1.3 to non-numeric Serum Total Health Serum or Plasma mg/dl results) System Direct Bilirubin 0.3 0.0 - Normal (applies Direct [facility] mg/dl 0.4 to non-numeric Bilirubin [facility] mg/dl results) System Aspartate 17 5 - 40 Normal (applies Aspartate [facility] aminotransferase {IU/L} IU/L to non-numeric Transaminase, Heal th [Enzymatic results) Serum System activity/volume] in Serum or Plasma by With P-5'-P Albumin 3.4 3.9 - Below low normal Albumin, [facility] [Mass/volume] in {gm/dl} 5.0 Serum Health Serum or Plasma gm/dl System I. Phosphorus 3.6 2.5 - Normal (applies I. Phosphorus [facility] mg/dl 4.5 to non-numeric Health mg/dl results) System Alanine 11 7 - 56 Normal (applies Alanine [facility] aminotransferase {IU/L} IU/L to non-numeric Aminotransfer Heal th [Enzymatic results) ase, Serum System activity/volume] in Serum or Plasma Calcium 8.6 8.4 - Normal (applies Calcium, [facility] [Mass/volume] in mg/dl 10.2 to non-numeric Total Serum Health Serum or Plasma mg/dl results) System A/G Ratio 1.31 Normal (applies A/G Ratio [facility] to non-numeric Health results) System Urate 4.0 2.5 - Normal (applies Uric Acid, [facility] [Mass/volume] in mg/dl 7.5 to non-numeric Serum Health Serum or Plasma mg/dl results) System Anion gap in Serum 10.00 8.00 - Normal (applies Anion Gap Reynal[facility] josy or Plasma mmol/L 12.00 to non-numeric Health mmol/L results) System Glomerular 76.61 Normal (applies GFR [facility] filtration to non-numeric Health rate/1.73 sq results) System M.predicted [Volume Rate/Area] in Serum or Plasma by Creatinine-based formula (CKD-EPI) eGFR will provide clinicians with a more accurate indicator of renal function then the serum creatinine. The eGFR is automa tically calculated from an empiric formula (endorsed by the [employer]) which incorporates age, sex, and race.Clinicians may notice surprisingly low GFR's with serum creatinine valueswithin normal range- particularly in elderly wo men (with low muscle mass).In the hospital setting, the eGFR should add an element of safety in drug dosing, in assessing the risk of IV contrast administration, and in assessing vascular risk.The NKF staging system is as follows:Normal: eGFR >90 with no kidney markersStage 1: eGFR >90 with kidney markers*Stage 2: eGFR 60- 89Stage 3: eGFR 30-59Stage 4: eGFR 15-29Stage 5: eGFR <15 (usually requir ing dialysis)*Markers include: Proteinuria, Hematuria, abnormal imaging-studies, or other blood or urine test abnormalities ID Date Data Source [id number] 08/07/2016 04:14:00 AM [facility] System Name Value Range Interpretation Description Data Sup porting Code Source(s) Document(s ) Magnesium 1.8 1.7 - Normal (applies Magnesium, [facility] [Mass/volume {mEq/L} 2.2 to non-numeric Serum Health Syste m ] in Serum mEq/L results) or Plasma ID Date Data Source [id number] 08/07/2016 04:14:00 AM EDT [facility] Name Value Range Interpretation Description Data Sup porting Code Source(s) Document(s ) Anisocytosis Slight Normal (applies Anisocytosis [facility] [Presence] in to non-numeric Health Blood by results) System Automated count Polys 79 % Normal (applies Polys [facility] to non-numeric Health results) System Bands 6 % 2 - 6 % Normal (applies Bands [facility] to non-numeric Health results) System Lymphocyte %. 10 % 21 - 51 Below low normal Lymphocyte %. Reynaldo josy % Health System Platelets Normal Normal (applies Platelet Count [facility] [#/volume] in to non-numeric Estimate Health Blood by results) System Estimate Monocyte %. 5 % 6 - 9 % Below low normal Monocyte %. [facility] OVAL Few Normal (applies OVAL [facility] to non-numeric Health results) System ID Date Data Source [id number] 08/07/2016 04:14:00 AM EDT [facility] System Name Value Range Interpretation Description Data Sup porting Code Source(s) Document(s ) Leukocytes 12.7 4.8 - Above high WBC Count [facility] [#/volume] in {10^3_uL 10.8 normal Health Unspecified } 10^3 uL System specimen by Automated count Erythrocytes 3.85 3.80 - Normal (applies RBC Count [facility] [#/volume] in {10^6_uL 5.20 to non-numeric Health Blood by } 10^6 uL results) System Automated count Hemoglobin 12.5 12.0 - Normal (applies Hemoglobin [facility] [Mass/volume] in {gm/dL} 16.0 to non-numeric Health Blood gm/dL results) System Hematocrit 37.4 % 36.0 - Normal (applies Hematocrit [facility] [Volume 46.0 % to non-numeric Health Fraction] of results) System Blood Erythrocyte mean 97.1 fl 83.0 - Normal (applies MCV [facility] corpuscular 98.0 fl to non-numeric Health volume [Entitic results) System volume] by Automated count Erythrocyte mean 32.5 pg 26.0 - Normal (applies MCH [facility] corpuscular 34.0 pg to non-numeric Health hemoglobin results) System [Entitic mass] by Automated count Erythrocyte mean 33.4 33.0 - Normal (applies MCHC [facility] corpuscular {gm/dL} 37.0 to non-numeric Health hemoglobin gm/dL results) System concentration [Mass/volume] by Automated count Erythrocyte 14.0 % 11.5 - Normal (applies RDW-CV [facility] distribution 14.5 % to non-numeric Health width [Entitic results) System volume] by Automated count Platelets 269 130 - Normal (applies Platelet [facility] [#/volume] in {10^3_uL 400 to non-numeric Count Health Plasma by } 10^3 uL results) System Automated count Platelet mean 9.9 fl 7.4 - Normal (applies MPV [facility] volume [Entitic 10.4 fl to non-numeric Health volume] in Blood results) System by Automated count Monocytes 0.4 0.3 - Normal (applies Monocyte # [facility] [#/volume] in {10^3_uL 0.9 to non-numeric Health Blood by Manual } 10^3 uL results) System count Eosinophils 0.00 0.05 - Below low normal Eosinophil # [facility] [#/volume] in {10^3_uL 0.30 Health Blood } 10^3 uL System Neutrophils 11.4 2.0 - Above high Neutrophil # [facility] [#/volume] in {10^3_uL 8.1 normal Health Body fluid } 10^3 uL System Basophils 0.00 0.00 - Normal (applies Basophil # [facility] [#/volume] in {10^3_uL 0.10 to non-numeric Health Blood by } 10^3 uL results) System Automated count Lymphocyte # 0.9 1.0 - Below low normal Lymphocyte # [facility] {10^3_uL 5.5 Health } 10^3 uL System Neutrophils/100 89.3 % 55.0 - Above high Neutrophil % [facility] leukocytes in 75.0 % normal Health Blood by System Automated count Monocytes/100 3.5 % 6.0 - Below low normal Monocyte % [facility] leukocytes in 9.0 % Health Blood System Eosinophils/100 0.0 % 0.0 - Normal (applies Eosinophil % Reynaldo josy leukocytes in 4.0 % to non-numeric Health Unspecified results) System specimen Basophils/100 0.0 % 0.0 - Normal (applies Basophil % [facility] leukocytes in 1.0 % to non-numeric Health Unspecified results) System specimen by Manual count Lymphocytes 7.2 % 21.0 - Below low normal Lymphocyte % [facility] [#/volume] in 51.0 % Health Blood by System Automated count ID Date Data Source [id number] 08/07/2016 04:14:00 AM EDT [facility] Name Value Range Interpretation Description Data Sup porting Code Source(s) Document(s ) Valproate 59.0 "." Normal (applies Valproic Acid [facility] [Mass/volume ug/ml ug/ml to non-numeric Level, Serum Health Sy stem ] in Serum results) or Plasma Therapeutic 50 - 100Toxic >100 ug/mL ID Date Data Source [id number] 08/06/2016 04:14:00 PM EDT [facility] Name Value Range Interpretation Description Data Sup porting Code Source(s) Document(s ) pH 7.443 7.350 - Normal (applies pH [facility] {pH_units} 7.450 to non-numeric Health pH results) System units Carbon 39.0 32.0 - Normal (applies pCO2, [facility] dioxide {mm_Hg} 45.0 mm to non-numeric Arterial Health [Partial Hg results) System pressure] in Arterial blood Oxygen 173.0 83.0 - Above high pO2, Aterial [facility] [Partial {mm_Hg} 108.0 normal Health pressure] in mm Hg System Arterial blood Base Excess. 2.5 mmol/L -3.0 - Normal (applies Base Excess. [facility] 3.0 to non-numeric Health mmol/L results) System Bicarbonate 26.6 mmol/L 20.0 - Above high HCO3 [facility] [Moles/volume 26.0 normal Health ] in Venous mmol/L System blood TCO2 Cancelled TCO2 [facility] unable to Health read System O2 Saturation Cancelled O2 Saturation [facility] able to Health read System Sodium, WB 142 mmol/L 137 - Normal (applies Sodium, WB [facility] 145 to non-numeric Health mmol/L results) System Potassium, WB 3.8 mmol/L 3.6 - Normal (applies Potassium, WB Reynaldo josy 5.0 to non-numeric Health mmol/L results) System Chloride, WB 100 mmol/L 98 - Normal (applies Chloride, WB [facility] 107 to non-numeric Health mmol/L results) System ok Glucose, WB 98 mg/dL 70 - 105 Normal (applies Glucose, WB [facility] mg/dL to non-numeric Health System results) Ionized 1.20 mmol/L 1.15 - 1.29 Normal (applies Ionized [facility] Calcium mmol/L to non-numeric Calcium Health System results) Lactate 0.7 mmol/L 0.5 - 1.6 Normal (applies Lactate [facility] [Mass/volume] mmol/L to non-numeric Health Syst em in Serum or results) Plasma ID Date Data Source [id number] 08/06/2016 12:32:00 PM EDT [facility] Name Value Range Interpretation Description Data Sup porting Code Source(s) Document(s ) Amphetamine Negative Negative Normal (applies Amphetamine [facility] [Mass/volume] ng/ml to non-numeric Level, Urine Health in Urine results) System Cut-off = 1000 ng/mL Barbiturates Negative Negative Normal (applies Barbiturate [facility] [Mass/volume] in ng/ml to non-numeric Screen, Urine Heal System Urine by Screen results) method Cut-off = 200 ng/mL Benzodiazepines Positive Negative Abnormal Benzodiazepines, [facility] [Mass/volume] in ng/mL (applies to Urine Health Urine non-numeric System results) Cut-off = 200 ng/mL Cocaine Negative Negative Normal (applies Cocaine [facility] metabolites.other ng/ml to non-numeric Metabolite Health System [Mass/volume] in results) Screen, Urine Urine Cut-off = 300 ng/mL Methadone Negative Negative Normal (applies Methadone [facility] [Mass/volume] in to non-numeric Level, Urine Healt h System Urine results) Cut-off = 300 ng/mL Opiate 300, Negative Negative ng/ml Normal (applies to Opiate 300, [facility] Urine non-numeric Urine [facility] System results) Cut-off = 300 ng/mL Phencyclidine Positive Negative Abnormal Phencyclidine, [facility] [Mass/volume] in ng/ml (applies to Urine Health Syst em Urine non-numeric results) Cut-off = 25 ng/mL Cannabinoid Negative Negative Normal (applies Cannabinoid [facility] (THC) ng/mL to non-numeric (THC) Health System results) Cutt-off = 50These results are for medic al treatment only. The positive findings are unconfirmed. Request confirmatory/quanti tative test if needed. ID Date Data Source [id number] 08/06/2016 06:25:00 AM EDT [facility] System Name Value Range Interpretation Description Data Sup porting Code Source(s) Document(s ) pH 7.455 7.350 - Above high normal pH [facility] {pH_unit 7.450 pH Health s} units System Carbon dioxide 35.3 32.0 - Normal (applies pCO2, [facility] [Partial {mm_Hg} 45.0 mm to non-numeric Arterial Health pressure] in Hg results) System Arterial blood Oxygen 120.0 83.0 - Above high normal pO2, Aterial [facility] [Partial {mm_Hg} 108.0 mm Health pressure] in Hg System Arterial blood Base Excess. 0.9 -3.0 - Normal (applies Base Excess. [facility] mmol/L 3.0 to non-numeric Health mmol/L results) System Bicarbonate 24.8 20.0 - Normal (applies HCO3 [facility] [Moles/volume] mmol/L 26.0 to non-numeric Health in Venous mmol/L results) System blood TCO2 22.0 24.0 - Below low normal TCO2 [facility] mmol/L 30.0 Health mmol/L System O2 Saturation 98.8 % 95.0 - Normal (applies O2 Saturation [facility] 99.0 % to non-numeric Health results) System Sodium, WB 138 137 - Normal (applies Sodium, WB [facility] mmol/L 145 to non-numeric Health mmol/L results) System Potassium, WB 3.7 3.6 - Normal (applies Potassium, WB [facility] mmol/L 5.0 to non-numeric Health mmol/L results) System Chloride, WB 106 98 - 107 Normal (applies Chloride, WB [facility] mmol/L mmol/L to non-numeric Health results) System Glucose, WB 113 70 - 105 Above high normal Glucose, WB [facility] mg/dL mg/dL Health System Ionized 1.16 1.15 - Normal (applies Ionized [facility] Calcium mmol/L 1.29 to non-numeric Calcium Health mmol/L results) System Lactate 0.7 0.5 - Normal (applies Lactate [facility] [Mass/volume] mmol/L 1.6 to non-numeric Health in Serum or mmol/L results) System Plasma ID Date Data Source [id number] 08/06/2016 06:00:00 AM [facility] System Name Value Range Interpretation Description Data Sup porting Code Source(s) Document(s ) Leukocytes 14.6 4.8 - Above high WBC Count [facility] [#/volume] in {10^3_uL 10.8 normal Health Unspecified } 10^3 uL System specimen by Automated count Erythrocytes 4.11 3.80 - Normal (applies RBC Count [facility] [#/volume] in {10^6_uL 5.20 to non-numeric Health Blood by } 10^6 uL results) System Automated count Hemoglobin 13.3 12.0 - Normal (applies Hemoglobin [facility] [Mass/volume] in {gm/dL} 16.0 to non-numeric Health Blood gm/dL results) System Hematocrit 39.5 % 36.0 - Normal (applies Hematocrit [facility] [Volume 46.0 % to non-numeric Health Fraction] of results) System Blood Erythrocyte mean 96.1 fl 83.0 - Normal (applies MCV [facility] corpuscular 98.0 fl to non-numeric Health volume [Entitic results) System volume] by Automated count Erythrocyte mean 32.4 pg 26.0 - Normal (applies MCH [facility] corpuscular 34.0 pg to non-numeric Health hemoglobin results) System [Entitic mass] by Automated count Erythrocyte mean 33.7 33.0 - Normal (applies MCHC [facility] corpuscular {gm/dL} 37.0 to non-numeric Health hemoglobin gm/dL results) System concentration [Mass/volume] by Automated count Erythrocyte 14.1 % 11.5 - Normal (applies RDW-CV [facility] distribution 14.5 % to non-numeric Health width [Entitic results) System volume] by Automated count Platelets 261 130 - Normal (applies Platelet [facility] [#/volume] in {10^3_uL 400 to non-numeric Count Health Plasma by } 10^3 uL results) System Automated count Platelet mean 10.2 fl 7.4 - Normal (applies MPV [facility] volume [Entitic 10.4 fl to non-numeric Health volume] in Blood results) System by Automated count Monocytes 0.3 0.3 - Normal (applies Monocyte # [facility] [#/volume] in {10^3_uL 0.9 to non-numeric Health Blood by Manual } 10^3 uL results) System count Eosinophils 0.01 0.05 - Below low normal Eosinophil # [facility] [#/volume] in {10^3_uL 0.30 Health Blood } 10^3 uL System Neutrophils 13.3 2.0 - Above high Neutrophil # [facility] [#/volume] in {10^3_uL 8.1 normal Health Body fluid } 10^3 uL System Basophils 0.01 0.00 - Normal (applies Basophil # [facility] [#/volume] in {10^3_uL 0.10 to non-numeric Health Blood by } 10^3 uL results) System Automated count Lymphocyte # 1.0 1.0 - Below low normal Lymphocyte # [facility] {10^3_uL 5.5 Health } 10^3 uL System Neutrophils/100 90.7 % 55.0 - Above high Neutrophil % [facility] leukocytes in 75.0 % normal Health Blood by System Automated count Monocytes/100 2.3 % 6.0 - Below low normal Monocyte % [facility] leukocytes in 9.0 % Health Blood System Eosinophils/100 0.1 % 0.0 - Normal (applies Eosinophil % Reynaldo josy leukocytes in 4.0 % to non-numeric Health Unspecified results) System specimen Basophils/100 0.1 % 0.0 - Normal (applies Basophil % [facility] leukocytes in 1.0 % to non-numeric Health Unspecified results) System specimen by Manual count Lymphocytes 6.8 % 21.0 - Below low normal Lymphocyte % [facility] [#/volume] in 51.0 % Health Blood by System Automated count ID Date Data Source [id number] 08/06/2016 06:00:00 AM EDT [facility] Name Value Range Interpretation Description Data Sup porting Code Source(s) Document(s ) Sodium 138 137 - Normal (applies Sodium, Serum [facility] [Moles/volume] in mmol/L 145 to non-numeric Health Serum or Plasma mmol/L results) System Potassium 3.9 3.6 - Normal (applies Potassium, [facility] [Mass/volume] in mmol/L 5.0 to non-numeric Serum Health Serum or Plasma mmol/L results) System Chloride 105 98 - Normal (applies Chloride, [facility] [Moles/volume] in mmol/L 107 to non-numeric Serum Health Serum or Plasma mmol/L results) System Carbon dioxide, 22.0 22.0 - Normal (applies CO2, Serum [facility] total mmol/L 30.0 to non-numeric Health [Moles/volume] in mmol/L results) System Serum or Plasma Total Protein 6.3 6.3 - Normal (applies Total Protein [facility] mg/dl 8.2 to non-numeric Health mg/dl results) System Glucose 97 65 - Normal (applies Glucose, [facility] [Mass/volume] in mg/dL 105 to non-numeric Serum Health Serum or Plasma mg/dL results) System Urea nitrogen 10 7 - 18 Normal (applies Blood Urea [facility] [Mass/volume] in mg/dl mg/dl to non-numeric Nitrogen, Health Serum or Plasma results) Serum System Creatinine 0.76 0.70 - Normal (applies Creatinine, [facility] [Mass/volume] in mg/dl 1.20 to non-numeric Serum Health Serum or Plasma mg/dl results) System Alkaline 59 38 - Normal (applies Alkaline [facility] phosphatase {IU/L} 126 to non-numeric Phosphatase, Health isoenzymes IU/L results) Serum System [Enzymatic activity/volume] in Serum or Plasma by Heat stability Bilirubin.total 0.5 0.2 - Normal (applies Bilirubin, [facility] [Mass/volume] in mg/dl 1.3 to non-numeric Serum Total Health Serum or Plasma mg/dl results) System Direct Bilirubin 0.2 0.0 - Normal (applies Direct [facility] mg/dl 0.4 to non-numeric Bilirubin Health mg/dl results) System Aspartate 27 5 - 40 Normal (applies Aspartate [facility] aminotransferase {IU/L} IU/L to non-numeric Transaminase, Heal th [Enzymatic results) Serum System activity/volume] in Serum or Plasma by With P-5'-P Albumin 3.6 3.9 - Below low normal Albumin, [facility] [Mass/volume] in {gm/dl} 5.0 Serum Health Serum or Plasma gm/dl System I. Phosphorus 1.6 2.5 - Below low normal I. Phosphorus Reynal[facility] josy mg/dl 4.5 Health mg/dl System Alanine 18 7 - 56 Normal (applies Alanine [facility] aminotransferase {IU/L} IU/L to non-numeric Aminotransfer Heal th [Enzymatic results) ase, Serum System activity/volume] in Serum or Plasma Calcium 8.9 8.4 - Normal (applies Calcium, [facility] [Mass/volume] in mg/dl 10.2 to non-numeric Total Serum Health Serum or Plasma mg/dl results) System A/G Ratio 1.33 Normal (applies A/G Ratio [facility] to non-numeric Health results) System Urate 4.5 2.5 - Normal (applies Uric Acid, [facility] [Mass/volume] in mg/dl 7.5 to non-numeric Serum Health Serum or Plasma mg/dl results) System Anion gap in Serum 11.00 8.00 - Normal (applies Anion Gap Reynaldo josy or Plasma mmol/L 12.00 to non-numeric Health mmol/L results) System Glomerular 81.28 Normal (applies GFR [facility] filtration to non-numeric Health rate/1.73 sq results) System M.predicted [Volume Rate/Area] in Serum or Plasma by Creatinine-based formula (CKD-EPI) eGFR will provide clinicians with a more accurate indicator of renal function then the serum creatinine. The eGFR is automa tically calculated from an empiric formula (endorsed by the [employer] ion) which incorporates age, sex, and race.Clinicians may notice surprisingly low GFR's with serum creatinine valueswithin normal range- particularly in elderly wo men (with low muscle mass).In the hospital setting, the eGFR should add an element of safety in drug dosing, in assessing the risk of IV contrast administration, and in assessing vascular risk.The NKF staging system is as follows:Normal: eGFR >90 with no kidney markersStage 1: eGFR >90 with kidney markers*Stage 2: eGFR 60- 89Stage 3: eGFR 30-59Stage 4: eGFR 15-29Stage 5: eGFR <15 (usually requir ing dialysis)*Markers include: Proteinuria, Hematuria, abnormal imaging-studies, or other blood or urine test abnormalities ID Date Data Source [id number] 08/06/2016 06:00:00 AM EDSaeed carrillo System Name Value Range Interpretation Description Data Sup porting Code Source(s) Document(s ) Lactic 0.98 0.70 - Normal (applies Lactic Acid, [facility] Acid, {mEq/L} 2.10 to non-numeric Plasma *[facility] Syst em Plasma mEq/L results) JEREMY ONLY* *[facility] JEREM[facility] ONLY* ID Date Data Source [id number] 08/06/2016 06:00:00 AM EDT Nomi Blackman alth System Name Value Range Interpretation Description Data Sup porting Code Source(s) Document(s ) Creatine 318 30 - 135 Above high normal Creatine [facility] kinase.MB {IU/L} IU/L Kinase, Serum Health System [Mass/volum e] in Serum or Plasma ID Date Data Source [id number] 08/05/2016 03:15:00 PM EDT Nomi Blackman alth System Name Value Range Interpretation Description Data Sup porting Code Source(s) Document(s ) pH 7.461 7.350 - Above high normal pH [facility] {pH_unit 7.450 pH Health s} units System Carbon dioxide 40.4 32.0 - Normal (applies pCO2, [facility] [Partial {mm_Hg} 45.0 mm to non-numeric Arterial Health pressure] in Hg results) System Arterial blood Oxygen 41.5 83.0 - Below low normal pO2, Aterial [facility] [Partial {mm_Hg} 108.0 mm Health pressure] in Hg System Arterial blood Base Excess. 5.0 -3.0 - Above high normal Base Excess. [facility] mmol/L 3.0 Health mmol/L System Bicarbonate 28.8 20.0 - Above high normal HCO3 [facility] [Moles/volume] mmol/L 26.0 Health in Venous mmol/L System blood TCO2 26.2 24.0 - Normal (applies TCO2 [facility] mmol/L 30.0 to non-numeric Health mmol/L results) System O2 Saturation 78.2 % 95.0 - Below low normal O2 Saturation Reynaldo josy 99.0 % Health System Sodium, WB 145 137 - Normal (applies Sodium, WB [facility] mmol/L 145 to non-numeric Health mmol/L results) System Potassium, WB 3.0 3.6 - Below low normal Potassium, WB Reynaldo josy mmol/L 5.0 Health mmol/L System Chloride, WB 109 98 - 107 Above high normal Chloride, WB [facility] mmol/L mmol/L Health System Glucose, WB 96 mg/dL 70 - 105 Normal (applies Glucose, WB [facility] mg/dL to non-numeric Health results) System Ionized 1.20 1.15 - Normal (applies Ionized [facility] Calcium mmol/L 1.29 to non-numeric Calcium Health mmol/L results) System Lactate 0.9 0.5 - Normal (applies Lactate [facility] [Mass/volume] mmol/L 1.6 to non-numeric Health in Serum or mmol/L results) System Plasma ID Date Data Source [id number] 08/05/2016 10:44:00 AM EDT [facility] [place] System Name Value Range Interpretation Description Data Sup porting Code Source(s) Document(s ) Color YELLOW Yellow Normal (applies Color [facility] to non-numeric Health results) System Appearance of CLEAR Clear Normal (applies Urine [facility] Urine to non-numeric Appearance Health results) System Specific 1.030 Normal (applies Urine Specific [facility] gravity of to non-numeric [facility] Urine results) System pH.. 5.5 4.6 - 8.0 Normal (applies pH.. [facility] {pH_units} pH units to non-numeric Health results) System Glucose, UA NEGATIVE < 50 Normal (applies Glucose, UA [facility] mg/dl to non-numeric Health results) System Protein NEGATIVE < 30 Normal (applies Protein [facility] [Mass/volume] mg/dl to non-numeric Health in Serum or results) System Plasma Bilirubin NEGATIVE Negative Normal (applies Bilirubin [facility] Urine Sm to Lg to non-numeric Urine Health results) System Urobilinogen 0.2 mg/dL Normal (applies Urobilinogen [facility] [Mass/volume] to non-numeric UA Health in Urine results) System Ketones NEGATIVE Negative Normal (applies Ketones UA [facility] [Mass/volume] Tr to Lg to non-numeric Health in Urine results) System Nitrate+Nitrit NEGATIVE Negative Normal (applies Nitrite [facility] e Neg/Pos to non-numeric Health [Mass/volume] results) System in Unspecified specimen Leukocyte SMALL Negative Abnormal Leukocyte [facility] esterase Tr to Lg (applies to Esterase Health [Units/volume] non-numeric Concentration System in Urine results) Leukocytes 20 {/HPF} 0 - 2 Normal (applies White Blood [facility] [#/volume] in /HPF to non-numeric Cells Health Unspecified results) System specimen by Automated count Red Blood 30 {/HPF} 0 - 1 Normal (applies Red Blood [facility] Cells /HPF to non-numeric Cells Health results) System Epithelial 5 {/HPF} 0 - 3 Normal (applies Epithelial [facility] cells /HPF to non-numeric Cells Health [Presence] in results) System Unspecified specimen by Wet preparation Bacteria 1+ 0 - 5 Normal (applies Bacteria [facility] [Presence] in /HPF to non-numeric Health Unspecified results) System specimen Calcium 4 {/HPF} 0 /HPF Normal (applies Calcium [facility] oxalate to non-numeric Oxalate Health crystals results) Crystals System [#/area] in Urine sediment by Microscopy low power field Urine Blood LARGE Normal (applies Urine Blood [facility] to non-numeric Health results) System ID Date Data Source [id number] 08/05/2016 10:44:00 AM EDT [facility] System Name Value Range Interpretation Description Data Sup porting Code Source(s) Document(s ) aPTT in Blood 26.8 23.9 - Normal (applies Activated [facility] by {Second 30.6 to non-numeric Partial Health Coagulation s} Seconds results) Thromboplastin System assay Time ID Date Data Source [id number] 08/05/2016 10:44:00 AM EDT [facility] System Name Value Range Interpretation Description Data Sup porting Code Source(s) Document(s ) Prothrombin 10.50 9.70 - Normal (applies Prothrombin [facility] time (PT) {seconds 11.80 to non-numeric time (PT) Health } seconds results) System INR in Blood 1.04 0.70 - Normal (applies INR Result [facility] by Coagulation {Ratio} 1.10 to non-numeric Health assay Ratio results) System Normal = 0.7-1.1Therapeutic = 2.0-3.0Mec hanical Heart = 3.0-4.5 ID Date Data Source [id number] 08/05/2016 10:44:00 AM EDT [facility] System Name Value Range Interpretation Description Data Sup porting Code Source(s) Document(s ) Leukocytes 6.8 4.8 - Normal (applies WBC Count [facility] [#/volume] in {10^3_uL 10.8 to non-numeric Health Unspecified } 10^3 uL results) System specimen by Automated count Erythrocytes 3.61 3.80 - Below low normal RBC Count [facility] [#/volume] in {10^6_uL 5.20 Health Blood by } 10^6 uL System Automated count Hemoglobin 11.6 12.0 - Below low normal Hemoglobin [facility] [Mass/volume] in {gm/dL} 16.0 Health Blood gm/dL System Hematocrit 35.1 % 36.0 - Below low normal Hematocrit [facility] [Volume 46.0 % Health Fraction] of System Blood Erythrocyte mean 97.2 fl 83.0 - Normal (applies MCV [facility] corpuscular 98.0 fl to non-numeric Health volume [Entitic results) System volume] by Automated count Erythrocyte mean 32.1 pg 26.0 - Normal (applies MCH [facility] corpuscular 34.0 pg to non-numeric Health hemoglobin results) System [Entitic mass] by Automated count Erythrocyte mean 33.0 33.0 - Normal (applies MCHC [facility] corpuscular {gm/dL} 37.0 to non-numeric Health hemoglobin gm/dL results) System concentration [Mass/volume] by Automated count Erythrocyte 14.3 % 11.5 - Normal (applies RDW-CV [facility] distribution 14.5 % to non-numeric Health width [Entitic results) System volume] by Automated count Platelets 247 130 - Normal (applies Platelet [facility] [#/volume] in {10^3_uL 400 to non-numeric Count Health Plasma by } 10^3 uL results) System Automated count Platelet mean 9.6 fl 7.4 - Normal (applies MPV [facility] volume [Entitic 10.4 fl to non-numeric Health volume] in Blood results) System by Automated count Monocytes 0.4 0.3 - Normal (applies Monocyte # [facility] [#/volume] in {10^3_uL 0.9 to non-numeric Health Blood by Manual } 10^3 uL results) System count Eosinophils 0.28 0.05 - Normal (applies Eosinophil # [facility] [#/volume] in {10^3_uL 0.30 to non-numeric Health Blood } 10^3 uL results) System Neutrophils 4.3 2.0 - Normal (applies Neutrophil # [facility] [#/volume] in {10^3_uL 8.1 to non-numeric Health Body fluid } 10^3 uL results) System Basophils 0.02 0.00 - Normal (applies Basophil # [facility] [#/volume] in {10^3_uL 0.10 to non-numeric Health Blood by } 10^3 uL results) System Automated count Lymphocyte # 1.7 1.0 - Normal (applies Lymphocyte # [facility] {10^3_uL 5.5 to non-numeric Health } 10^3 uL results) System Neutrophils/100 64.0 % 55.0 - Normal (applies Neutrophil % Reynaldo josy leukocytes in 75.0 % to non-numeric Health Blood by results) System Automated count Monocytes/100 6.5 % 6.0 - Normal (applies Monocyte % [facility] leukocytes in 9.0 % to non-numeric Health Blood results) System Eosinophils/100 4.1 % 0.0 - Above high Eosinophil % [facility] leukocytes in 4.0 % normal Health Unspecified System specimen Basophils/100 0.3 % 0.0 - Normal (applies Basophil % [facility] leukocytes in 1.0 % to non-numeric Health Unspecified results) System specimen by Manual count Lymphocytes 25.1 % 21.0 - Normal (applies Lymphocyte % [facility] [#/volume] in 51.0 % to non-numeric Health Blood by results) System Automated count ID Date Data Source [id number] 08/05/2016 10:44:00 AM EDT [facility] System Name Value Range Interpretation Description Data Sup porting Code Source(s) Document(s ) HCG NEGATIVE Negative Normal (applies HCG [facility] Qualitative mIU/ml to non-numeric Qualitative Health results) System Default Normal RangesNegative <5Indeterm inate 5-25(Please repeat in 2 days.)Positive >25 ID Date Data Source [id number] 08/05/2016 10:44:00 AM EDT [facility] System Name Value Range Interpretation Description Data Sup porting Code Source(s) Document(s ) Valproate < 2.00 "." Normal (applies Valproic Acid [facility] [Mass/volume ug/ml to non-numeric Level, Serum Health Sy stem ] in Serum results) or Plasma Therapeutic 50 - 100Toxic >100 ug/mL ID Date Data Source [id number] 08/05/2016 10:44:00 AM EDT [facility] System Name Value Range Interpretation Description Data Sup porting Code Source(s) Document(s ) Sodium 144 137 - Normal (applies Sodium, Serum [facility] [Moles/volume] in mmol/L 145 to non-numeric Health Serum or Plasma mmol/L results) System Potassium 3.1 3.6 - Below low normal Potassium, [facility] [Mass/volume] in mmol/L 5.0 Serum Health Serum or Plasma mmol/L System Chloride 105 98 - Normal (applies Chloride, [facility] [Moles/volume] in mmol/L 107 to non-numeric Serum Health Serum or Plasma mmol/L results) System Carbon dioxide, 28.0 22.0 - Normal (applies CO2, Serum [facility] total mmol/L 30.0 to non-numeric Health [Moles/volume] in mmol/L results) System Serum or Plasma Total Protein 5.6 6.3 - Below low normal Total Protein Reynaldo josy mg/dl 8.2 Health mg/dl System Glucose 107 65 - Above high Glucose, [facility] [Mass/volume] in mg/dL 105 normal Serum Health Serum or Plasma mg/dL System Urea nitrogen 16 7 - 18 Normal (applies Blood Urea [facility] [Mass/volume] in mg/dl mg/dl to non-numeric Nitrogen, Health Serum or Plasma results) Serum System Creatinine 0.92 0.70 - Normal (applies Creatinine, [facility] [Mass/volume] in mg/dl 1.20 to non-numeric Serum Health Serum or Plasma mg/dl results) System Alkaline 52 38 - Normal (applies Alkaline [facility] phosphatase {IU/L} 126 to non-numeric Phosphatase, [facility] isoenzymes IU/L results) Serum System [Enzymatic activity/volume] in Serum or Plasma by Heat stability Bilirubin.total 0.2 0.2 - Normal (applies Bilirubin, [facility] [Mass/volume] in mg/dl 1.3 to non-numeric Serum Total Health Serum or Plasma mg/dl results) System Direct Bilirubin 0.1 0.0 - Normal (applies Direct [facility] mg/dl 0.4 to non-numeric Bilirubin Health mg/dl results) System Aspartate 24 5 - 40 Normal (applies Aspartate [facility] aminotransferase {IU/L} IU/L to non-numeric Transaminase, Heal th [Enzymatic results) Serum System activity/volume] in Serum or Plasma by With P-5'-P Albumin 3.5 3.9 - Below low normal Albumin, [facility] [Mass/volume] in {gm/dl} 5.0 Serum Health Serum or Plasma gm/dl System I. Phosphorus 2.7 2.5 - Normal (applies I. Phosphorus [facility] mg/dl 4.5 to non-numeric Health mg/dl results) System Alanine 16 7 - 56 Normal (applies Alanine [facility] aminotransferase {IU/L} IU/L to non-numeric Aminotransfer Heal th [Enzymatic results) ase, Serum System activity/volume] in Serum or Plasma Calcium 9.5 8.4 - Normal (applies Calcium, [facility] [Mass/volume] in mg/dl 10.2 to non-numeric Total Serum Health Serum or Plasma mg/dl results) System A/G Ratio 1.67 Normal (applies A/G Ratio [facility] to non-numeric Health results) System Urate 6.8 2.5 - Normal (applies Uric Acid, [facility] [Mass/volume] in mg/dl 7.5 to non-numeric Serum Health Serum or Plasma mg/dl results) System Anion gap in Serum 11.00 8.00 - Normal (applies Anion Gap Reynaldo josy or Plasma mmol/L 12.00 to non-numeric Health mmol/L results) System Glomerular 65.20 Normal (applies GFR [facility] filtration to non-numeric Health rate/1.73 sq results) System M.predicted [Volume Rate/Area] in Serum or Plasma by Creatinine-based formula (CKD-EPI) eGFR will provide clinicians with a more accurate indicator of renal function then the serum creatinine. The eGFR is automa tically calculated from an empiric formula (endorsed by the National Kidney [employer] ion) which incorporates age, sex, and race.Clinicians may notice surprisingly low GFR's with serum creatinine valueswithin normal range- particularly in elderly wo men (with low muscle mass).In the hospital setting, the eGFR should add an element of safety in drug dosing, in assessing the risk of IV contrast administration, and in assessing vascular risk.The NKF staging system is as follows:Normal: eGFR >90 with no kidney markersStage 1: eGFR >90 with kidney markers*Stage 2: eGFR 60- 89Stage 3: eGFR 30-59Stage 4: eGFR 15-29Stage 5: eGFR <15 (usually requir ing dialysis)*Markers include: Proteinuria, Hematuria, abnormal imaging-studies, or other blood or urine test abnormalities ID Date Data Source [id number] 08/05/2016 10:44:00 AM EDT [facility] System Name Value Range Interpretation Description Data Sup porting Code Source(s) Document(s ) Alcohol NON-DETECTE Normal (applies Alcohol Ethyl, [facility] Ethyl, D None to non-numeric Blood Health System Blood Detected results) ID Date Data Source [id number] 08/05/2016 10:44:00 AM EDT [facility] System Name Value Range Interpretation Description Data Sup porting Code Source(s) Document(s ) Acetaminophen < 1 10 - 30 Below low normal Acetaminophen Reynaldo josy [Mass/volume] in ug/ml Level, Serum Health Serum or Plasma System ID Date Data Source [id number] 08/05/2016 10:44:00 AM EDT [facility] System Name Value Range Interpretation Description Data Sup porting Code Source(s) Document(s ) Acetylsalicylate < 5 2.0 - Normal (applies Salicylate [facility] [Mass/volume] in 30.0 to non-numeric Level, Serum Healt h Serum or Plasma mg/dl results) System ID Date Data Source [id number] 08/05/2016 10:44:00 AM EDT [facility] System Name Value Range Interpretation Description Data Sup porting Code Source(s) Document(s ) Amphetamine Negative Negative Normal (applies Amphetamine [facility] [Mass/volume] ng/ml to non-numeric Level, Urine Health in Urine results) System Cut-off = 1000 ng/mL Barbiturates Negative Negative Normal (applies Barbiturate [facility] [Mass/volume] in ng/ml to non-numeric Screen, Urine Heal System Urine by Screen results) method Cut-off = 200 ng/mL Benzodiazepines Positive Negative Abnormal Benzodiazepines, [facility] [Mass/volume] in ng/mL (applies to Urine Health Urine non-numeric System results) Cut-off = 200 ng/mL Cocaine Negative Negative Normal (applies Cocaine [facility] metabolites.other ng/ml to non-numeric Metabolite Health System [Mass/volume] in results) Screen, Urine Urine Cut-off = 300 ng/mL Methadone Negative Negative Normal (applies Methadone [facility] [Mass/volume] in to non-numeric Level, Urine Healt h System Urine results) Cut-off = 300 ng/mL Opiate 300, Negative Negative ng/ml Normal (applies to Opiate 300, [facility] Urine non-numeric Urine Health System results) Cut-off = 300 ng/mL Phencyclidine Positive Negative Abnormal Phencyclidine, [facility] [Mass/volume] in ng/ml (applies to Urine Health Syst em Urine non-numeric results) Cut-off = 25 ng/mL Cannabinoid Negative Negative Normal (applies Cannabinoid [facility] (THC) ng/mL to non-numeric (THC) Health System results) Cutt-off = 50These results are for medic al treatment only. The positive findings are unconfirmed. Request confirmatory/quanti tative test if needed. ID Date Data Source [id number] 08/05/2016 10:44:00 AM EDT [facility]aldojosy Yehuda alth System Name Value Range Interpretation Description Data Sup porting Code Source(s) Document(s ) Creatine 412 30 - 135 Above high normal Creatine [facility] kinase.MB {IU/L} IU/L Kinase, Serum Health System [Mass/volum e] in Serum or Plasma ID Date Data Source [id number] 05/18/2016 02:02:00 PM EDT Reynaldojosy Yehuda alth System Name Value Range Interpretation Description Data Sup porting Code Source(s) Document(s ) Valproate 56.3 "." Normal (applies Valproic Acid [facility] [Mass/volume ug/ml ug/ml to non-numeric Level, Serum Health Sy stem ] in Serum results) or Plasma Therapeutic 50 - 100Toxic >100 ug/mL ID Date Data Source [id number] 05/18/2016 02:02:00 PM EDT Nomi carrillo System Name Value Range Interpretation Description Data Sup porting Code Source(s) Document(s ) Albumin 3.7 3.9 - Below low normal Albumin, [facility] [Mass/volume] in {gm/dl} 5.0 Serum Health Serum or Plasma gm/dl System Bilirubin.total 0.2 0.2 - Normal (applies Bilirubin, [facility] [Mass/volume] in mg/dl 1.3 to non-numeric Serum Total Health Serum or Plasma mg/dl results) System Aspartate 15 5 - 40 Normal (applies Aspartate [facility] aminotransferase {IU/L} IU/L to non-numeric Transaminase, Heal th [Enzymatic results) Serum System activity/volume] in Serum or Plasma by With P-5'-P Alanine 13 7 - 56 Normal (applies Alanine [facility] aminotransferase {IU/L} IU/L to non-numeric Aminotransfer Heal th [Enzymatic results) ase, Serum System activity/volume] in Serum or Plasma Alkaline 54 38 - Normal (applies Alkaline [facility] phosphatase {IU/L} 126 to non-numeric Phosphatase, Health isoenzymes IU/L results) Serum System [Enzymatic activity/volume] in Serum or Plasma by Heat stability Direct Bilirubin 0.1 0.0 - Normal (applies Direct [facility] mg/dl 0.4 to non-numeric Bilirubin Health mg/dl results) System Total Protein 6.0 6.3 - Below low normal Total Protein Reynaldo josy mg/dl 8.2 Health mg/dl System ID Date Data Source [id number] 04/03/2016 10:41:00 PM EDT [facility] System Name Value Range Interpretation Description Data Sup porting Code Source(s) Document(s ) Valproate 54.4 "." Normal (applies Valproic Acid [facility] [Mass/volume ug/ml ug/ml to non-numeric Level, Serum Health Sy stem ] in Serum results) or Plasma Therapeutic 50 - 100Toxic >100 ug/mL ID Date Data Source [id number] 04/03/2016 01:07:00 PM EDT [facility] System Name Value Range Interpretation Description Data Sup porting Code Source(s) Document(s ) Leukocytes 8.5 4.8 - Normal (applies WBC Count [facility] [#/volume] in {10^3_uL 10.8 to non-numeric Health Unspecified } 10^3 uL results) System specimen by Automated count Erythrocytes 3.75 3.80 - Below low normal RBC Count [facility] [#/volume] in {10^6_uL 5.20 Health Blood by } 10^6 uL System Automated count Hemoglobin 12.1 12.0 - Normal (applies Hemoglobin [facility] [Mass/volume] in {gm/dL} 16.0 to non-numeric Health Blood gm/dL results) System Hematocrit 35.3 % 36.0 - Below low normal Hematocrit [facility] [Volume 46.0 % Health Fraction] of System Blood Erythrocyte mean 94.1 fl 80.0 - Normal (applies MCV [facility] corpuscular 100.0 to non-numeric Health volume [Entitic fl results) System volume] by Automated count Erythrocyte mean 32.3 pg 26.0 - Normal (applies MCH [facility] corpuscular 34.0 pg to non-numeric Health hemoglobin results) System [Entitic mass] by Automated count Erythrocyte mean 34.3 33.0 - Normal (applies MCHC [facility] corpuscular {gm/dL} 37.0 to non-numeric Health hemoglobin gm/dL results) System concentration [Mass/volume] by Automated count Erythrocyte 14.5 % 11.5 - Normal (applies RDW-CV [facility] distribution 14.5 % to non-numeric Health width [Entitic results) System volume] by Automated count Platelets 249 130 - Normal (applies Platelet [facility] [#/volume] in {10^3_uL 400 to non-numeric Count Health Plasma by } 10^3 uL results) System Automated count Platelet mean 9.5 fl 7.4 - Normal (applies MPV [facility] volume [Entitic 10.4 fl to non-numeric Health volume] in Blood results) System by Automated count Monocytes 0.6 0.3 - Normal (applies Monocyte # [facility] [#/volume] in {10^3_uL 0.9 to non-numeric Health Blood by Manual } 10^3 uL results) System count Eosinophils 0.08 0.05 - Normal (applies Eosinophil # [facility] [#/volume] in {10^3_uL 0.30 to non-numeric Health Blood } 10^3 uL results) System Neutrophils 6.5 2.0 - Normal (applies Neutrophil # [facility] [#/volume] in {10^3_uL 8.1 to non-numeric Health Body fluid } 10^3 uL results) System Basophils 0.02 0.00 - Normal (applies Basophil # [facility] [#/volume] in {10^3_uL 0.10 to non-numeric Health Blood by } 10^3 uL results) System Automated count Lymphocyte # 1.4 1.0 - Normal (applies Lymphocyte # [facility] {10^3_uL 5.5 to non-numeric Health } 10^3 uL results) System Neutrophils/100 76.1 % 0.0 - Normal (applies Neutrophil % Reynaldo josy leukocytes in 120.0 % to non-numeric Health Blood by results) System Automated count Monocytes/100 6.7 % 6.0 - Normal (applies Monocyte % [facility] leukocytes in 9.0 % to non-numeric Health Blood results) System Eosinophils/100 0.9 % 1.0 - Below low normal Eosinophil % [facility] leukocytes in 3.0 % Health Unspecified System specimen Basophils/100 0.2 % 0.0 - Normal (applies Basophil % [facility] leukocytes in 1.0 % to non-numeric Health Unspecified results) System specimen by Manual count Lymphocytes 16.1 % 21.0 - Below low normal Lymphocyte % [facility] [#/volume] in 51.0 % Health Blood by System Automated count ID Date Data Source [id number] 04/03/2016 01:07:00 PM EDT [facility] System Name Value Range Interpretation Description Data Sup porting Code Source(s) Document(s ) hCG < 5.0 Normal (applies hCG [facility] Quantitative to non-numeric Quantitative Health Sy stem results) Negative = <5 mIU/mLAPPROXIMATE GEST. AG E APPROXIMATE HCG mIU/ML 0.2 - 1 week 5 - 50 1 - 2 w eeks 50 - 500 2 - 3 weeks 100 - 5,000 3 - 4 weeks 500 - 10,000 4 - 5 weeks 1,000 - 50,000 5 - 6 weeks 10,000 - 100,000 6 - 8 weeks 15,000 - 200,000 8 - 12 weeks 10,000 - 1 00,000HCG levels between 5-25 mIU/mL may be indicative of early . Correlati on with other clinical findings and/or repeat of HCG quantitative testing recommened. ID Date Data Source [id number] 04/03/2016 01:07:00 PM EDT [facility] Name Value Range Interpretation Description Data Sup porting Code Source(s) Document(s ) Valproate 77.8 "." Normal (applies Valproic Acid [facility] [Mass/volume ug/ml ug/ml to non-numeric Level, Serum Health Sy stem ] in Serum results) or Plasma Therapeutic 50 - 100Toxic >100 ug/mL ID Date Data Source [id number] 04/03/2016 01:07:00 PM EDT [facility] Name Value Range Interpretation Description Data Sup porting Code Source(s) Document(s ) Sodium 142 137 - Normal (applies Sodium, Serum [facility] [Moles/volume] in mmol/L 145 to non-numeric Health Serum or Plasma mmol/L results) System Potassium 3.6 3.6 - Normal (applies Potassium, [facility] [Mass/volume] in mmol/L 5.0 to non-numeric Serum Health Serum or Plasma mmol/L results) System Chloride 107 98 - Normal (applies Chloride, [facility] [Moles/volume] in mmol/L 107 to non-numeric Serum Health Serum or Plasma mmol/L results) System Carbon dioxide, 23.0 22.0 - Normal (applies CO2, Serum [facility] total mmol/L 30.0 to non-numeric Health [Moles/volume] in mmol/L results) System Serum or Plasma Total Protein 6.5 6.3 - Normal (applies Total Protein [facility] mg/dl 8.2 to non-numeric Health mg/dl results) System Glucose 76 65 - Normal (applies Glucose, [facility] [Mass/volume] in mg/dL 105 to non-numeric Serum Health Serum or Plasma mg/dL results) System Urea nitrogen 16 7 - 18 Normal (applies Blood Urea [facility] [Mass/volume] in mg/dl mg/dl to non-numeric Nitrogen, Health Serum or Plasma results) Serum System Creatinine 0.90 0.70 - Normal (applies Creatinine, [facility] [Mass/volume] in mg/dl 1.20 to non-numeric Serum Health Serum or Plasma mg/dl results) System Alkaline 71 38 - Normal (applies Alkaline [facility] phosphatase {IU/L} 126 to non-numeric Phosphatase, [facility] isoenzymes IU/L results) Serum System [Enzymatic activity/volume] in Serum or Plasma by Heat stability Bilirubin.total 0.6 0.2 - Normal (applies Bilirubin, [facility] [Mass/volume] in mg/dl 1.3 to non-numeric Serum Total Health Serum or Plasma mg/dl results) System Direct Bilirubin 0.3 0.0 - Normal (applies Direct [facility] mg/dl 0.4 to non-numeric Bilirubin [facility] mg/dl results) System Aspartate 27 5 - 40 Normal (applies Aspartate [facility] aminotransferase {IU/L} IU/L to non-numeric Transaminase, Heal th [Enzymatic results) Serum System activity/volume] in Serum or Plasma by With P-5'-P Albumin 4.0 3.9 - Normal (applies Albumin, [facility] [Mass/volume] in {gm/dl} 5.0 to non-numeric Serum Health Serum or Plasma gm/dl results) System I. Phosphorus 3.0 2.5 - Normal (applies I. Phosphorus [facility] mg/dl 4.5 to non-numeric Health mg/dl results) System Alanine 17 7 - 56 Normal (applies Alanine [facility] aminotransferase {IU/L} IU/L to non-numeric Aminotransfer Heal th [Enzymatic results) ase, Serum System activity/volume] in Serum or Plasma Calcium 8.8 8.4 - Normal (applies Calcium, [facility] [Mass/volume] in mg/dl 10.2 to non-numeric Total Serum Health Serum or Plasma mg/dl results) System A/G Ratio 1.60 Normal (applies A/G Ratio [facility] to non-numeric Health results) System Urate 7.2 2.5 - Normal (applies Uric Acid, [facility] [Mass/volume] in mg/dl 7.5 to non-numeric Serum Health Serum or Plasma mg/dl results) System ID Date Data Source [id number] 04/03/2016 01:07:00 PM EDT [facility] Name Value Range Interpretation Description Data Sup porting Code Source(s) Document(s ) Alcohol none Normal (applies Alcohol Ethyl, [facility] Ethyl, detected to non-numeric Blood Health System Blood None results) Detected ID Date Data Source [id number] 03/10/2016 11:17:14 AM EDT [facility] Name Value Range Interpretation Description Data Sup porting Code Source(s) Document(s ) Erythrocyte 10 0 - 20 Normal (applies Sedimentation [facility] sedimentation {mmlhr} mmlhr to non-numeric Rate, Health rate by 2H results) Erythrocyte System Westergren method ID Date Data Source [id number] 03/10/2016 11:17:14 AM EDT [facility] Name Value Range Interpretation Description Data Sup porting Code Source(s) Document(s ) Leukocytes 9.2 4.8 - Normal (applies WBC Count [facility] [#/volume] in {10^3_uL 10.8 to non-numeric Health Unspecified } 10^3 uL results) System specimen by Automated count Erythrocytes 4.27 3.80 - Normal (applies RBC Count [facility] [#/volume] in {10^6_uL 5.20 to non-numeric Health Blood by } 10^6 uL results) System Automated count Hemoglobin 13.9 12.0 - Normal (applies Hemoglobin [facility] [Mass/volume] in {gm/dL} 16.0 to non-numeric Health Blood gm/dL results) System Hematocrit 41.2 % 36.0 - Normal (applies Hematocrit [facility] [Volume 46.0 % to non-numeric Health Fraction] of results) System Blood Erythrocyte mean 96.5 fl 80.0 - Normal (applies MCV [facility] corpuscular 100.0 to non-numeric Health volume [Entitic fl results) System volume] by Automated count Erythrocyte mean 32.6 pg 26.0 - Normal (applies MCH [facility] corpuscular 34.0 pg to non-numeric Health hemoglobin results) System [Entitic mass] by Automated count Erythrocyte mean 33.7 33.0 - Normal (applies MCHC [facility] corpuscular {gm/dL} 37.0 to non-numeric Health hemoglobin gm/dL results) System concentration [Mass/volume] by Automated count Erythrocyte 14.3 % 11.5 - Normal (applies RDW-CV [facility] distribution 14.5 % to non-numeric Health width [Entitic results) System volume] by Automated count Platelets 332 130 - Normal (applies Platelet [facility] [#/volume] in {10^3_uL 400 to non-numeric Count Health Plasma by } 10^3 uL results) System Automated count Platelet mean 10.0 fl 7.4 - Normal (applies MPV [facility] volume [Entitic 10.4 fl to non-numeric Health volume] in Blood results) System by Automated count Monocytes 0.5 0.3 - Normal (applies Monocyte # [facility] [#/volume] in {10^3_uL 0.9 to non-numeric Health Blood by Manual } 10^3 uL results) System count Eosinophils 0.21 0.05 - Normal (applies Eosinophil # [facility] [#/volume] in {10^3_uL 0.30 to non-numeric Health Blood } 10^3 uL results) System Neutrophils 4.9 2.0 - Normal (applies Neutrophil # [facility] [#/volume] in {10^3_uL 8.1 to non-numeric Health Body fluid } 10^3 uL results) System Basophils 0.02 0.00 - Normal (applies Basophil # [facility] [#/volume] in {10^3_uL 0.10 to non-numeric Health Blood by } 10^3 uL results) System Automated count Lymphocyte # 3.5 1.0 - Normal (applies Lymphocyte # [facility] {10^3_uL 5.5 to non-numeric Health } 10^3 uL results) System Neutrophils/100 53.4 % 0.0 - Normal (applies Neutrophil % [facility] josy leukocytes in 120.0 % to non-numeric Health Blood by results) System Automated count Monocytes/100 5.6 % 6.0 - Below low normal Monocyte % [facility] leukocytes in 9.0 % Health Blood System Eosinophils/100 2.3 % 1.0 - Normal (applies Eosinophil % [facility] josy leukocytes in 3.0 % to non-numeric Health Unspecified results) System specimen Basophils/100 0.2 % 0.0 - Normal (applies Basophil % [facility] leukocytes in 1.0 % to non-numeric Health Unspecified results) System specimen by Manual count Lymphocytes 38.5 % 21.0 - Normal (applies Lymphocyte % [facility] [#/volume] in 51.0 % to non-numeric Health Blood by results) System Automated count ID Date Data Source [id number] 03/10/2016 11:17:14 AM EDT [facility] Name Value Range Interpretation Description Data Source(s ) Supporting Code Document(s ) T4 Free 0.92 0.71 - Normal (applies to T4 Free [facility] ng/ml 1.85 non-numeric Health System ng/ml results) ID Date Data Source [id number] 03/10/2016 11:17:14 AM EDT [facility] Name Value Range Interpretation Description Data Sup porting Code Source(s) Document(s ) Thyrotropin 0.835 0.380 - Normal (applies Thyroid [facility] [Mass/volume] {mIU/mL} 6.150 to non-numeric Stimulating Health in Serum or mIU/mL results) Hormone, System Plasma Serum ID Date Data Source [id number] 03/10/2016 11:17:14 AM EDT [facility] Name Value Range Interpretation Code Description Data Suha rce(s) Supporting Document(s ) HbA1C 5.0 % 4.6 - 6.2 % Normal (applies to HbA1C [facility] non-numeric Health System results) ID Date Data Source [id number] 03/10/2016 11:17:14 AM EDT [facility] Name Value Range Interpretation Description Data Sup porting Code Source(s) Document(s ) Creatine 145 30 - 135 Above high normal Creatine [facility] kinase.MB {IU/L} IU/L Kinase, Serum Health System [Mass/volum e] in Serum or Plasma ID Date Data Source [id number] 03/09/2016 03:57:00 PM EDT [facility] Name Value Range Interpretation Description Data Sup porting Code Source(s) Document(s ) C4 25 mg/dl 16 - 47 Normal (applies C4 Complement, [facility] Complemen mg/dl to non-numeric Serum Health System t, Serum results) Test Performed at:[facility], [place], [place] Arun Cooper M.D. ID Date Data Source [id number] 03/09/2016 03:57:00 PM EDT [facility] Name Value Range Interpretation Description Data Sup porting Code Source(s) Document(s ) Immunoglobulin E 393 <sp=342 Above high Immunoglobulin E [facility] Level, Serum kU/L kU/L normal Level, Serum Health System Test Performed at[place] [place] Arun Cooper M.D. ID Date Data Source [id number] 03/09/2016 03:57:00 PM EDT [facility] Name Value Range Interpretation Description Data Sup porting Code Source(s) Document(s ) ALDAIR Titer DNR Normal (applies ALDAIR Titer [facility] to non-numeric Health System results) ALDAIR EIA Negative Normal (applies ALDAIR EIA [facility] to non-numeric Health System results) Pattern DNRTest Normal (applies Pattern [facility] Performed to non-numeric Health System at:[facility] - results) [facility], [place], [place] Apolinar Cooper M.D. ID Date Data Source [id number] 03/09/2016 03:57:00 PM EDT [facility] Name Value Range Interpretation Description Data Sup porting Code Source(s) Document(s ) Immunoglobulin G 1257 694 - Normal (applies Immunoglobulin G [facility] Level, Serum mg/dL 1618 to non-numeric Level, Serum Health mg/dL results) System Test Performed at:[facility] [place], [place] [id number] Cooper M.D. ID Date Data Source [id number] 03/09/2016 03:57:00 PM EDT [facility] Name Value Range Interpretation Description Data Sup porting Code Source(s) Document(s ) Copper 99 70 - 175 Normal (applies Copper, Serum [facility] [Mass/volu {mcg/dL} mcg/dL to non-numeric Health System me] in results) Serum or Plasma This test was performed at:[email or web address] [address] [id number] Pe rformed at:[facility], [address] [place] [id number] Jara M.D., Ph.D. ID Date Data Source [id number] 03/09/2016 03:57:00 PM EDT [facility] Name Value Range Interpretation Description Data Sup porting Code Source(s) Document(s ) Complement 56 U/mL 31 - 60 Normal (applies Complement [facility] CH50 U/mL to non-numeric CH50 Health results) System Test Performed at:[facility], [place], [place] [id number] Cooper M.D. ID Date Data Source [id number] 03/09/2016 03:57:00 PM EDT [facility] Name Value Range Interpretation Description Data Sup porting Code Source(s) Document(s ) Pyridoxine 8.9 2.1 - Normal (applies Vitamin B6, [facility] [Mass/volume] ng/mL 21.7 to non-numeric Serum Health in Serum or ng/mL results) System Plasma Test performed by:[facility] [place] [id number] Perform ed at:[facility], [place], [address] [place], [place] [address]Qy. Maurice Rogers ID Date Data Source [id number] 03/09/2016 03:57:00 PM EDT [facility] Name Value Range Interpretation Description Data Sup porting Code Source(s) Document(s ) Zinc 94 60 - 130 Normal (applies to Zinc, Serum [facility] [Moles/vol {mcg/dL} mcg/dL non-numeric Health System ume] in results) Serum or Plasma This test was performed at:[email or web address] [facility] [address] [id number] Pe rformed at:[facility], [address] [place] [id number] Jara M.D., Ph.D. ID Date Data Source [id number] 03/09/2016 03:57:00 PM EDT [facility] Name Value Range Interpretation Description Data Sup porting Code Source(s) Document(s ) Aldolase 6.0 U/L <=8.1 Normal (applies Aldolase, [facility] [Enzymatic U/L to non-numeric Serum Health System activity/vo results) lume] in Serum or Plasma Test Performed at:[facility] [place], [place] [id number] angel Cooper M.D. ID Date Data Source [id number] 03/09/2016 03:57:00 PM EDT [facility] Name Value Range Interpretation Code Description Data Suha rce(s) Supporting Document(s ) RA Latex Negative Normal (applies to RA Latex [facility] non-numeric Health System results) Method: Latex agglutination ID Date Data Source [id number] 03/09/2016 03:57:00 PM EDT [facility] Name Value Range Interpretation Description Data Sup porting Code Source(s) Document(s ) Myoglobin 21 < = 30 Normal (applies Myoglobin, [facility] [Mass/volume {mcg/L} mcg/L to non-numeric Serum Health Syste m ] in Serum results) or Plasma Test Performed at:[facility], [place], [place] Arun Cooper M.D. ID Date Data Source [id number] 03/09/2016 03:57:00 PM EDT [facility] Name Value Range Interpretation Description Data Sup porting Code Source(s) Document(s ) Cobalamin 461 143 - Normal (applies Vitamin B12, [facility] (Vitamin pg/ml 716 to non-numeric Serum Health System B12) pg/ml results) [Mass/volume ] in Serum or Plasma ID Date Data Source [id number] 03/09/2016 03:57:00 PM EDT [facility] Name Value Range Interpretation Description Data Sup porting Code Source(s) Document(s ) Folate 9.30 >5.8 Normal (applies Folate, Serum [facility] [Mass/volu ng/ml ng/ml to non-numeric Health System me] in results) Serum or Plasma ID Date Data Source [id number] 03/09/2016 03:57:00 PM EDT [facility] Name Value Range Interpretation Description Data Sup porting Code Source(s) Document(s ) C3 127 mg/dl 90 - 180 Normal (applies C3 Complement, [facility] Complemen mg/dl to non-numeric Serum Health System t, Serum results) Test Performed at:[facility], [place], [place] Arun Cooper M.D. ID Date Data Source [id number] 03/02/2016 04:18:00 PM EDT [facility] Name Value Range Interpretation Description Data Sup porting Code Source(s) Document(s ) Leukocytes 9.0 4.8 - Normal (applies WBC Count [facility] [#/volume] in {10^3_uL 10.8 to non-numeric Health Unspecified } 10^3 uL results) System specimen by Automated count Erythrocytes 3.63 3.80 - Below low normal RBC Count [facility] [#/volume] in {10^6_uL 5.20 Health Blood by } 10^6 uL System Automated count Hemoglobin 11.5 12.0 - Below low normal Hemoglobin [facility] [Mass/volume] in {gm/dL} 16.0 Health Blood gm/dL System Hematocrit 34.0 % 36.0 - Below low normal Hematocrit [facility] [Volume 46.0 % Health Fraction] of System Blood Erythrocyte mean 93.7 fl 80.0 - Normal (applies MCV [facility] corpuscular 100.0 to non-numeric Health volume [Entitic fl results) System volume] by Automated count Erythrocyte mean 31.7 pg 26.0 - Normal (applies MCH [facility] corpuscular 34.0 pg to non-numeric Health hemoglobin results) System [Entitic mass] by Automated count Erythrocyte mean 33.8 33.0 - Normal (applies MCHC [facility] corpuscular {gm/dL} 37.0 to non-numeric Health hemoglobin gm/dL results) System concentration [Mass/volume] by Automated count Erythrocyte 14.2 % 11.5 - Normal (applies RDW-CV [facility] distribution 14.5 % to non-numeric Health width [Entitic results) System volume] by Automated count Platelets 248 130 - Normal (applies Platelet [facility] [#/volume] in {10^3_uL 400 to non-numeric Count Health Plasma by } 10^3 uL results) System Automated count Platelet mean 10.0 fl 7.4 - Normal (applies MPV [facility] volume [Entitic 10.4 fl to non-numeric Health volume] in Blood results) System by Automated count Monocytes 0.4 0.3 - Normal (applies Monocyte # [facility] [#/volume] in {10^3_uL 0.9 to non-numeric Health Blood by Manual } 10^3 uL results) System count Eosinophils 0.15 0.05 - Normal (applies Eosinophil # [facility] [#/volume] in {10^3_uL 0.30 to non-numeric Health Blood } 10^3 uL results) System Neutrophils 6.9 2.0 - Normal (applies Neutrophil # [facility] [#/volume] in {10^3_uL 8.1 to non-numeric Health Body fluid } 10^3 uL results) System Basophils 0.02 0.00 - Normal (applies Basophil # [facility] [#/volume] in {10^3_uL 0.10 to non-numeric Health Blood by } 10^3 uL results) System Automated count Lymphocyte # 1.5 1.0 - Normal (applies Lymphocyte # [facility] {10^3_uL 5.5 to non-numeric Health } 10^3 uL results) System Neutrophils/100 76.7 % 0.0 - Normal (applies Neutrophil % Reynaldo josy leukocytes in 120.0 % to non-numeric Health Blood by results) System Automated count Monocytes/100 4.8 % 6.0 - Below low normal Monocyte % [facility] leukocytes in 9.0 % Health Blood System Eosinophils/100 1.7 % 1.0 - Normal (applies Eosinophil % Reynaldo josy leukocytes in 3.0 % to non-numeric Health Unspecified results) System specimen Basophils/100 0.2 % 0.0 - Normal (applies Basophil % [facility] leukocytes in 1.0 % to non-numeric Health Unspecified results) System specimen by Manual count Lymphocytes 16.6 % 21.0 - Below low normal Lymphocyte % [facility] [#/volume] in 51.0 % Health Blood by System Automated count ID Date Data Source [id number] 03/02/2016 04:18:00 PM EDT [facility] Name Value Range Interpretation Description Data Sup porting Code Source(s) Document(s ) Sodium 143 137 - Normal (applies Sodium, Serum [facility] [Moles/volume] in mmol/L 145 to non-numeric Health Serum or Plasma mmol/L results) System Potassium 3.4 3.6 - Below low normal Potassium, [facility] [Mass/volume] in mmol/L 5.0 Serum Health Serum or Plasma mmol/L System Chloride 106 98 - Normal (applies Chloride, [facility] [Moles/volume] in mmol/L 107 to non-numeric Serum Health Serum or Plasma mmol/L results) System Carbon dioxide, 27.0 22.0 - Normal (applies CO2, Serum [facility] total mmol/L 30.0 to non-numeric Health [Moles/volume] in mmol/L results) System Serum or Plasma Total Protein 5.6 6.3 - Below low normal Total Protein Reynaldo josy mg/dl 8.2 Health mg/dl System Glucose 81 65 - Normal (applies Glucose, [facility] [Mass/volume] in mg/dL 105 to non-numeric Serum Health Serum or Plasma mg/dL results) System Urea nitrogen 14 7 - 18 Normal (applies Blood Urea [facility] [Mass/volume] in mg/dl mg/dl to non-numeric Nitrogen, Health Serum or Plasma results) Serum System Creatinine 0.77 0.70 - Normal (applies Creatinine, [facility] [Mass/volume] in mg/dl 1.20 to non-numeric Serum Health Serum or Plasma mg/dl results) System Alkaline 51 38 - Normal (applies Alkaline [facility] phosphatase {IU/L} 126 to non-numeric Phosphatase, Health isoenzymes IU/L results) Serum System [Enzymatic activity/volume] in Serum or Plasma by Heat stability Bilirubin.total 0.4 0.2 - Normal (applies Bilirubin, [facility] [Mass/volume] in mg/dl 1.3 to non-numeric Serum Total Health Serum or Plasma mg/dl results) System Direct Bilirubin 0.2 0.0 - Normal (applies Direct [facility] mg/dl 0.4 to non-numeric Bilirubin Health mg/dl results) System Aspartate 20 5 - 40 Normal (applies Aspartate [facility] aminotransferase {IU/L} IU/L to non-numeric Transaminase, Heal [Enzymatic results) Serum System activity/volume] in Serum or Plasma by With P-5'-P Albumin 3.8 3.9 - Below low normal Albumin, [facility] [Mass/volume] in {gm/dl} 5.0 Serum Health Serum or Plasma gm/dl System I. Phosphorus 3.8 2.5 - Normal (applies I. Phosphorus [facility] mg/dl 4.5 to non-numeric Health mg/dl results) System Alanine 15 7 - 56 Normal (applies Alanine [facility] aminotransferase {IU/L} IU/L to non-numeric Aminotransfer Heal [Enzymatic results) ase, Serum System activity/volume] in Serum or Plasma Calcium 9.5 8.4 - Normal (applies Calcium, [facility] [Mass/volume] in mg/dl 10.2 to non-numeric Total Serum Health Serum or Plasma mg/dl results) System A/G Ratio 2.11 Normal (applies A/G Ratio [facility] to non-numeric Health results) System Urate 6.2 2.5 - Normal (applies Uric Acid, [facility] [Mass/volume] in mg/dl 7.5 to non-numeric Serum Health Serum or Plasma mg/dl results) System Anion gap in Serum 10.00 8.00 - Normal (applies Anion Gap Reynaldo josy or Plasma mmol/L 12.00 to non-numeric Health mmol/L results) System Glomerular 80.21 Normal (applies GFR [facility] filtration to non-numeric Health rate/1.73 sq results) System M.predicted [Volume Rate/Area] in Serum or Plasma by Creatinine-based formula (CKD-EPI) eGFR will provide clinicians with a more accurate indicator of renal function then the serum creatinine. The eGFR is automa tically calculated from an empiric formula (endorsed by the National [employer] ion) which incorporates age, sex, and race.Clinicians may notice surprisingly low GFR's with serum creatinine valueswithin normal range- particularly in elderly wo men (with low muscle mass).In the hospital setting, the eGFR should add an element of safety in drug dosing, in assessing the risk of IV contrast administration, and in assessing vascular risk.The NKF staging system is as follows:Normal: eGFR >90 with no kidney markersStage 1: eGFR >90 with kidney markers*Stage 2: eGFR 60- 89Stage 3: eGFR 30-59Stage 4: eGFR 15-29Stage 5: eGFR <15 (usually requir ing dialysis)*Markers include: Proteinuria, Hematuria, abnormal imaging-studies, or other blood or urine test abnormalities ID Date Data Source [id number] 03/02/2016 04:18:00 PM EDT [facility] Name Value Range Interpretation Description Data Sup porting Code Source(s) Document(s ) Alcohol non-detecte Normal (applies Alcohol Ethyl, [facility] Ethyl, d None to non-numeric Blood Health System Blood Detected results) ID Date Data Source [id number] 02/25/2016 12:42:00 PM EDT [facility] Name Value Range Interpretation Description Data Sup porting Code Source(s) Document(s ) Troponin I 0.00 0.00 - Normal (applies Troponin I [facility] Quantitative ng/ml 0.04 to non-numeric Quantitative Health ng/ml results) System ID Date Data Source [id number] 02/25/2016 06:30:00 AM EDT [facility] Name Value Range Interpretation Description Data Sup porting Code Source(s) Document(s ) Bacteria NO GROWTH Culture [facility] identified in Bacteria Blood Health Syst em Blood by [facility] culture ID Date Data Source [id number] 02/25/2016 06:30:00 AM EDT [facility] Name Value Range Interpretation Description Data Sup porting Code Source(s) Document(s ) Lactic 1.13 0.70 - Normal (applies Lactic Acid, [facility] Acid, {mEq/L} 2.10 to non-numeric Plasma *[facility] Syst em Plasma mEq/L results) JEREMY ONLY* *[facility]EREM[facility] ONLY* ID Date Data Source [id number] 02/25/2016 06:00:00 AM EDT [facility] Name Value Range Interpretation Description Data Sup porting Code Source(s) Document(s ) 25 Hydroxy 66 ng/mL 30 - 100 Normal (applies 25 Hydroxy [facility] Vitamin D ng/mL to non-numeric Vitamin D Health System results) 25 Hydroxy 8 ng/mL 0 - Normal (applies 25 Hydroxy D3 [facility] D3 412781 to non-numeric Health System ng/mL results) 25 Hydroxy 58 ng/mL 0 - Normal (applies 25 Hydroxy D2 [facility] D2 229861 to non-numeric Health System ng/mL results) 25-OHD3 indicates both endogenous produc tion andsupplementation. 25-OHD2 is an indicator of exogenoussources such as di et or supplementation. Therapy is based onmeasurement of Total 25-OHD, with leve ls <20 ng/mL indicativeof Vitamin D deficiency, while levels between 20 ng/m L and30 ng/mL suggest insufficiency. Optimal levels are> or = 30 ng/mL.Test Performed at:[facility] - [facility], [address] Rodney muñoz M.D. ID Date Data Source [id number] 02/25/2016 06:00:00 AM EDT [facility] System Name Value Range Interpretation Description Data Sup porting Code Source(s) Document(s ) Leukocytes 7.4 4.8 - Normal (applies WBC Count [facility] [#/volume] in {10^3_uL 10.8 to non-numeric Health Unspecified } 10^3 uL results) System specimen by Automated count Erythrocytes 3.71 3.80 - Below low normal RBC Count [facility] [#/volume] in {10^6_uL 5.20 Health Blood by } 10^6 uL System Automated count Hemoglobin 12.0 12.0 - Normal (applies Hemoglobin [facility] [Mass/volume] in {gm/dL} 16.0 to non-numeric Health Blood gm/dL results) System Hematocrit 34.6 % 36.0 - Below low normal Hematocrit [facility] [Volume 46.0 % Health Fraction] of System Blood Erythrocyte mean 93.3 fl 80.0 - Normal (applies MCV [facility] corpuscular 100.0 to non-numeric Health volume [Entitic fl results) System volume] by Automated count Erythrocyte mean 32.3 pg 26.0 - Normal (applies MCH [facility] corpuscular 34.0 pg to non-numeric Health hemoglobin results) System [Entitic mass] by Automated count Erythrocyte mean 34.7 33.0 - Normal (applies MCHC [facility] corpuscular {gm/dL} 37.0 to non-numeric Health hemoglobin gm/dL results) System concentration [Mass/volume] by Automated count Erythrocyte 14.4 % 11.5 - Normal (applies RDW-CV [facility] distribution 14.5 % to non-numeric Health width [Entitic results) System volume] by Automated count Platelets 207 130 - Normal (applies Platelet [facility] [#/volume] in {10^3_uL 400 to non-numeric Count Health Plasma by } 10^3 uL results) System Automated count Platelet mean 10.1 fl 7.4 - Normal (applies MPV [facility] volume [Entitic 10.4 fl to non-numeric Health volume] in Blood results) System by Automated count Monocytes 0.5 0.3 - Normal (applies Monocyte # [facility] [#/volume] in {10^3_uL 0.9 to non-numeric Health Blood by Manual } 10^3 uL results) System count Eosinophils 0.22 0.05 - Normal (applies Eosinophil # [facility] [#/volume] in {10^3_uL 0.30 to non-numeric Health Blood } 10^3 uL results) System Neutrophils 4.1 2.0 - Normal (applies Neutrophil # [facility] [#/volume] in {10^3_uL 8.1 to non-numeric Health Body fluid } 10^3 uL results) System Basophils 0.03 0.00 - Normal (applies Basophil # [facility] [#/volume] in {10^3_uL 0.10 to non-numeric Health Blood by } 10^3 uL results) System Automated count Lymphocyte # 2.5 1.0 - Normal (applies Lymphocyte # [facility] {10^3_uL 5.5 to non-numeric Health } 10^3 uL results) System Neutrophils/100 55.0 % 0.0 - Normal (applies Neutrophil % Reynaldo josy leukocytes in 120.0 % to non-numeric Health Blood by results) System Automated count Monocytes/100 7.3 % 6.0 - Normal (applies Monocyte % [facility] leukocytes in 9.0 % to non-numeric Health Blood results) System Eosinophils/100 3.0 % 1.0 - Normal (applies Eosinophil % Reynaldo josy leukocytes in 3.0 % to non-numeric Health Unspecified results) System specimen Basophils/100 0.4 % 0.0 - Normal (applies Basophil % [facility] leukocytes in 1.0 % to non-numeric Health Unspecified results) System specimen by Manual count Lymphocytes 34.3 % 21.0 - Normal (applies Lymphocyte % [facility] [#/volume] in 51.0 % to non-numeric Health Blood by results) System Automated count ID Date Data Source [id number] 02/25/2016 06:00:00 AM EDT [facility] Name Value Range Interpretation Description Data Sup porting Code Source(s) Document(s ) Sodium 140 137 - Normal (applies Sodium, Serum [facility] [Moles/volum mmol/L 145 to non-numeric Health Syste m e] in Serum mmol/L results) or Plasma Potassium 3.7 3.6 - Normal (applies Potassium, [facility] [Mass/volume mmol/L 5.0 to non-numeric Serum Health Syste m ] in Serum mmol/L results) or Plasma Chloride 110 98 - 107 Above high normal Chloride, [facility] [Moles/volum mmol/L mmol/L Serum Health System e] in Serum or Plasma ok Carbon dioxide, 24.0 mmol/L 22.0 - 30.0 Normal (applies CO2, Serum [facility] total [Moles/volume] mmol/L to non-numeric Heal th System in Serum or Plasma results) ok Total Protein 5.0 mg/dl 6.3 - 8.2 Below low Total Protein [facility] mg/dl normal System ok Glucose [Mass/volume] 75 mg/dL 65 - 105 Normal (applies Glucose, [facility] in Serum or Plasma mg/dL to non-numeric Serum Health System results) Urea nitrogen 10 mg/dl 7 - 18 Normal (applies Blood Urea [facility] [Mass/volume] in mg/dl to non-numeric Nitrogen, [facility] S te Serum or Plasma results) Serum Creatinine 0.70 mg/dl 0.70 - Normal (applies Creatinine, [facility] [Mass/volume] in 1.20 mg/dl to non-numeric Serum Health System Serum or Plasma results) Alkaline phosphatase 45 {IU/L} 38 - 126 Normal (applies Alkaline [facility] isoenzymes [Enzymatic IU/L to non-numeric Phosphatase, Health System activity/volume] in results) Serum Serum or Plasma by Heat stability Bilirubin.total 0.3 mg/dl 0.2 - 1.3 Normal (applies Bilirubin, [facility] [Mass/volume] in mg/dl to non-numeric Serum Total [facility] System Serum or Plasma results) Direct Bilirubin 0.1 mg/dl 0.0 - 0.4 Normal (applies Direct [facility] mg/dl to non-numeric Bilirubin Health System results) Aspartate 14 {IU/L} 5 - 40 Normal (applies Aspartate [facility] aminotransferase IU/L to non-numeric Transaminase, [facility] System [Enzymatic results) Serum activity/volume] in Serum or Plasma by With P-5'-P Albumin [Mass/volume] 3.1 3.9 - 5.0 Below low Albumin, [facility] in Serum or Plasma {gm/dl} gm/dl normal Serum Health Syst em ok I. Phosphorus 2.7 mg/dl 2.5 - 4.5 Normal (applies I. Phosphorus [facility] mg/dl to non-numeric Health System results) ok Alanine 11 {IU/L} 7 - 56 Normal Alanine [facility] aminotransferase IU/L (applies to Aminotransferase, [facility] System [Enzymatic non-numeric Serum activity/volume] in results) Serum or Plasma Calcium 7.7 mg/dl 8.4 - Below low Calcium, Total Serum [facility] [Mass/volume] in 10.2 normal Health System Serum or Plasma mg/dl ok A/G Ratio 1.63 Normal (applies to A/G Ratio [facility] non-numeric System results) Urate 4.7 mg/dl 2.5 - Normal (applies to Uric Acid, [facility] [Mass/volume] in 7.5 non-numeric Serum System Serum or Plasma mg/dl results) Anion gap in Serum 6.00 mmol/L 8.00 - Below low normal Anion Gap [facility] or Plasma 12.00 System mmol/L Glomerular 89.54 Normal (applies to GFR [facility] filtration non-numeric System rate/1.73 sq results) M.predicted [Volume Rate/Area] in Serum or Plasma by Creatinine-based formula (CKD-EPI) eGFR will provide clinicians with a more accurate indicator of renal function then the serum creatinine. The eGFR is automa tically calculated from an empiric formula (endorsed by the National Kid[employer] ion) which incorporates age, sex, and race.Clinicians may notice surprisingly low GFR's with serum creatinine valueswithin normal range- particularly in elderly wo men (with low muscle mass).In the hospital setting, the eGFR should add an element of safety in drug dosing, in assessing the risk of IV contrast administration, and in assessing vascular risk.The NKF staging system is as follows:Normal: eGFR >90 with no kidney markersStage 1: eGFR >90 with kidney markers*Stage 2: eGFR 60- 89Stage 3: eGFR 30-59Stage 4: eGFR 15-29Stage 5: eGFR <15 (usually requir ing dialysis)*Markers include: Proteinuria, Hematuria, abnormal imaging-studies, or other blood or urine test abnormalities ID Date Data Source [id number] 02/25/2016 06:00:00 AM EDT Nomi carrillo System Name Value Range Interpretation Description Data Sup porting Code Source(s) Document(s ) Creatine 121 30 - 135 Normal (applies Creatine [facility] kinase.MB {IU/L} IU/L to non-numeric Kinase, Serum Health Syst em [Mass/volum results) e] in Serum or Plasma ID Date Data Source [id number] 02/24/2016 10:32:00 PM EDT [facility] System Name Value Range Interpretation Description Data Sup porting Code Source(s) Document(s ) Prolactin 16.5 Normal (applies Prolactin, [facility] [Mass/volume] ng/mL to non-numeric Serum Health Syst em in Serum or results) Plasma Reference RangeFemalePostmenopausal: 2.0- 20.0: 10.0-209.0Non-: 3.0- 3 0.0Test Performed at:[facility], [place] [address] Cole Cooper M.D. ID Date Data Source [id number] 02/24/2016 06:52:00 PM EDT [facility] System Name Value Range Interpretation Description Data Sup porting Code Source(s) Document(s ) Valproate 26.3 "." Normal (applies Valproic Acid [facility] [Mass/volume ug/ml ug/ml to non-numeric Level, Serum Health Sy stem ] in Serum results) or Plasma Therapeutic 50 - 100Toxic >100 ug/mL ID Date Data Source [id number] 02/24/2016 06:42:00 PM EDT [facility] Name Value Range Interpretation Description Data Sup porting Code Source(s) Document(s ) aPTT in Blood 27.1 23.9 - Normal (applies Activated [facility] by {Second 30.6 to non-numeric Partial Health Coagulation s} Seconds results) Thromboplastin System assay Time ID Date Data Source [id number] 02/24/2016 06:42:00 PM EDT [facility] Name Value Range Interpretation Description Data Sup porting Code Source(s) Document(s ) Prothrombin 10.00 9.70 - Normal (applies Prothrombin [facility] time (PT) {seconds 11.80 to non-numeric time (PT) Health } seconds results) System INR in Blood 0.99 0.70 - Normal (applies INR Result [facility] by Coagulation {Ratio} 1.10 to non-numeric Health assay Ratio results) System Normal = 0.7-1.1Therapeutic = 2.0-3.0Mec hanical Heart = 3.0-4.5 ID Date Data Source [id number] 02/24/2016 06:42:00 PM EDT [facility] Name Value Range Interpretation Description Data Sup porting Code Source(s) Document(s ) Leukocytes 14.1 4.8 - Above high WBC Count [facility] [#/volume] in {10^3_uL 10.8 normal Health Unspecified } 10^3 uL System specimen by Automated count Erythrocytes 4.39 3.80 - Normal (applies RBC Count [facility] [#/volume] in {10^6_uL 5.20 to non-numeric Health Blood by } 10^6 uL results) System Automated count Hemoglobin 14.1 12.0 - Normal (applies Hemoglobin [facility] [Mass/volume] in {gm/dL} 16.0 to non-numeric Health Blood gm/dL results) System Hematocrit 41.2 % 36.0 - Normal (applies Hematocrit [facility] [Volume 46.0 % to non-numeric Health Fraction] of results) System Blood Erythrocyte mean 93.8 fl 80.0 - Normal (applies MCV [facility] corpuscular 100.0 to non-numeric Health volume [Entitic fl results) System volume] by Automated count Erythrocyte mean 32.1 pg 26.0 - Normal (applies MCH [facility] corpuscular 34.0 pg to non-numeric Health hemoglobin results) System [Entitic mass] by Automated count Erythrocyte mean 34.2 33.0 - Normal (applies MCHC [facility] corpuscular {gm/dL} 37.0 to non-numeric Health hemoglobin gm/dL results) System concentration [Mass/volume] by Automated count Erythrocyte 14.2 % 11.5 - Normal (applies RDW-CV [facility] distribution 14.5 % to non-numeric Health width [Entitic results) System volume] by Automated count Platelets 334 130 - Normal (applies Platelet [facility] [#/volume] in {10^3_uL 400 to non-numeric Count Health Plasma by } 10^3 uL results) System Automated count Platelet mean 9.7 fl 7.4 - Normal (applies MPV [facility] volume [Entitic 10.4 fl to non-numeric Health volume] in Blood results) System by Automated count Monocytes 0.8 0.3 - Normal (applies Monocyte # [facility] [#/volume] in {10^3_uL 0.9 to non-numeric Health Blood by Manual } 10^3 uL results) System count Eosinophils 0.36 0.05 - Above high Eosinophil # [facility] [#/volume] in {10^3_uL 0.30 normal Health Blood } 10^3 uL System Neutrophils 7.2 2.0 - Normal (applies Neutrophil # [facility] [#/volume] in {10^3_uL 8.1 to non-numeric Health Body fluid } 10^3 uL results) System Basophils 0.03 0.00 - Normal (applies Basophil # [facility] [#/volume] in {10^3_uL 0.10 to non-numeric Health Blood by } 10^3 uL results) System Automated count Lymphocyte # 5.7 1.0 - Above high Lymphocyte # [facility] {10^3_uL 5.5 normal Health } 10^3 uL System Neutrophils/100 51.1 % 0.0 - Normal (applies Neutrophil % Reynaldo josy leukocytes in 120.0 % to non-numeric Health Blood by results) System Automated count Monocytes/100 5.5 % 6.0 - Below low normal Monocyte % [facility] leukocytes in 9.0 % Health Blood System Eosinophils/100 2.6 % 1.0 - Normal (applies Eosinophil % Reynaldo josy leukocytes in 3.0 % to non-numeric Health Unspecified results) System specimen Basophils/100 0.2 % 0.0 - Normal (applies Basophil % [facility] leukocytes in 1.0 % to non-numeric Health Unspecified results) System specimen by Manual count Lymphocytes 40.6 % 21.0 - Normal (applies Lymphocyte % [facility] [#/volume] in 51.0 % to non-numeric Health Blood by results) System Automated count ID Date Data Source [id number] 02/24/2016 06:42:00 PM EDT [facility] Name Value Range Interpretation Description Data Sup porting Code Source(s) Document(s ) Natriuretic < 10.0 0.0 - Normal (applies B-Type [facility] peptide B 101.0 to non-numeric Natriuetic Health [Mass/volume] pg/ml results) Peptide System in Serum or Plasma ID Date Data Source [id number] 02/24/2016 06:42:00 PM EDT [facility] Name Value Range Interpretation Description Data Sup porting Code Source(s) Document(s ) Sodium 141 137 - Normal (applies Sodium, Serum [facility] [Moles/volume] in mmol/L 145 to non-numeric Health Serum or Plasma mmol/L results) System Potassium 3.5 3.6 - Below low normal Potassium, [facility] [Mass/volume] in mmol/L 5.0 Serum Health Serum or Plasma mmol/L System Chloride 102 98 - Normal (applies Chloride, [facility] [Moles/volume] in mmol/L 107 to non-numeric Serum Health Serum or Plasma mmol/L results) System Carbon dioxide, 28.0 22.0 - Normal (applies CO2, Serum [facility] total mmol/L 30.0 to non-numeric Health [Moles/volume] in mmol/L results) System Serum or Plasma Total Protein 7.4 6.3 - Normal (applies Total Protein [facility] mg/dl 8.2 to non-numeric Health mg/dl results) System Glucose 71 65 - Normal (applies Glucose, [facility] [Mass/volume] in mg/dL 105 to non-numeric Serum Health Serum or Plasma mg/dL results) System Urea nitrogen 18 7 - 18 Normal (applies Blood Urea [facility] [Mass/volume] in mg/dl mg/dl to non-numeric Nitrogen, Health Serum or Plasma results) Serum System Creatinine 1.01 0.70 - Normal (applies Creatinine, [facility] [Mass/volume] in mg/dl 1.20 to non-numeric Serum Health Serum or Plasma mg/dl results) System Alkaline 67 38 - Normal (applies Alkaline [facility] phosphatase {IU/L} 126 to non-numeric Phosphatase, Health isoenzymes IU/L results) Serum System [Enzymatic activity/volume] in Serum or Plasma by Heat stability Bilirubin.total 0.3 0.2 - Normal (applies Bilirubin, [facility] [Mass/volume] in mg/dl 1.3 to non-numeric Serum Total Health Serum or Plasma mg/dl results) System Direct Bilirubin 0.1 0.0 - Normal (applies Direct [facility] mg/dl 0.4 to non-numeric Bilirubin Health mg/dl results) System Aspartate 20 5 - 40 Normal (applies Aspartate [facility] aminotransferase {IU/L} IU/L to non-numeric Transaminase, Heal th [Enzymatic results) Serum System activity/volume] in Serum or Plasma by With P-5'-P Albumin 4.8 3.9 - Normal (applies Albumin, [facility] [Mass/volume] in {gm/dl} 5.0 to non-numeric Serum Health Serum or Plasma gm/dl results) System I. Phosphorus 4.1 2.5 - Normal (applies I. Phosphorus [facility] mg/dl 4.5 to non-numeric Health mg/dl results) System Alanine 16 7 - 56 Normal (applies Alanine [facility] aminotransferase {IU/L} IU/L to non-numeric Aminotransfer Heal th [Enzymatic results) ase, Serum System activity/volume] in Serum or Plasma Calcium 10.9 8.4 - Above high Calcium, [facility] [Mass/volume] in mg/dl 10.2 normal Total Serum Health Serum or Plasma mg/dl System A/G Ratio 1.85 Normal (applies A/G Ratio [facility] to non-numeric Health results) System Urate 5.9 2.5 - Normal (applies Uric Acid, [facility] [Mass/volume] in mg/dl 7.5 to non-numeric Serum Health Serum or Plasma mg/dl results) System Anion gap in Serum 11.00 8.00 - Normal (applies Anion Gap Reynaldo josy or Plasma mmol/L 12.00 to non-numeric Health mmol/L results) System Glomerular 58.65 Normal (applies GFR [facility] filtration to non-numeric Health rate/1.73 sq results) System M.predicted [Volume Rate/Area] in Serum or Plasma by Creatinine-based formula (CKD-EPI) eGFR will provide clinicians with a more accurate indicator of renal function then the serum creatinine. The eGFR is automa tically calculated from an empiric formula (endorsed by the National Kidney [employer] ion) which incorporates age, sex, and race.Clinicians may notice surprisingly low GFR's with serum creatinine valueswithin normal range- particularly in elderly wo men (with low muscle mass).In the hospital setting, the eGFR should add an element of safety in drug dosing, in assessing the risk of IV contrast administration, and in assessing vascular risk.The NKF staging system is as follows:Normal: eGFR >90 with no kidney markersStage 1: eGFR >90 with kidney markers*Stage 2: eGFR 60- 89Stage 3: eGFR 30-59Stage 4: eGFR 15-29Stage 5: eGFR <15 (usually requir ing dialysis)*Markers include: Proteinuria, Hematuria, abnormal imaging-studies, or other blood or urine test abnormalities ID Date Data Source [id number] 02/24/2016 06:42:00 PM EDT Nomi carrillo System Name Value Range Interpretation Description Data Sup porting Code Source(s) Document(s ) Alcohol none Normal (applies Alcohol Ethyl, [facility] Ethyl, detected to non-numeric Blood Health System Blood None results) Detected ID Date Data Source [id number] 02/24/2016 06:42:00 PM EDT [facility] System Name Value Range Interpretation Description Data Sup porting Code Source(s) Document(s ) Acetaminophen < 1 10 - 30 Below low normal Acetaminophen Reynaldo josy [Mass/volume] in ug/ml Level, Serum Health Serum or Plasma System Performed at [facility], [address] [place], [place] [address] ID Date Data Source [id number] 02/24[facility]2016 [facility] Name Value Range Interpretation Description Data Sup porting Code Source(s) Document(s ) Troponin I 0.00 0.00 - Normal (applies Troponin I [facility] Quantitative ng/ml 0.04 to non-numeric Quantitative Health ng/ml results) System ID Date Data Source [id number] 02/24/2016 06:42:00 PM [facility] System Name Value Range Interpretation Description Data Sup porting Code Source(s) Document(s ) Acetylsalicylate < 5 2.0 - Normal (applies Salicylate [facility] [Mass/volume] in 30.0 to non-numeric Level, Serum Healt h Serum or Plasma mg/dl results) System ID Date Data Source [id number] 02/24/2016 06:42[facility] Name Value Range Interpretation Description Data Sup porting Code Source(s) Document(s ) Amphetamine Negative Negative Normal (applies Amphetamine [facility] [Mass/volume] ng/ml to non-numeric Level, Urine Health in Urine results) System Cut-off = 1000 ng/mL Barbiturates Negative Negative Normal (applies Barbiturate [facility] [Mass/volume] in ng/ml to non-numeric Screen, Urine Heal th System Urine by Screen results) method Cut-off = 200 ng/mL Benzodiazepines Negative Negative Normal Benzodiazepines, [facility] [Mass/volume] in ng/mL (applies to Urine Health Urine non-numeric System results) Cut-off = 200 ng/mL Cocaine Negative Negative Normal (applies Cocaine [facility] metabolites.other ng/ml to non-numeric Metabolite Health System [Mass/volume] in results) Screen, Urine Urine Cut-off = 300 ng/mL Methadone Negative Negative Normal (applies Methadone [facility] [Mass/volume] in to non-numeric Level, Urine Healt h System Urine results) Cut-off = 300 ng/mL Opiate 300, Negative Negative ng/ml Normal (applies to Opiate 300, [facility] Urine non-numeric Urine Health System results) Cut-off = 300 ng/mL Phencyclidine Positive Negative Abnormal Phencyclidine, [facility] [Mass/volume] in ng/ml (applies to Urine Health Syst em Urine non-numeric results) Cut-off = 25 ng/mL THC Negative Negative ng/mL Normal (applies to THC [facility] non-numeric results) Cutt-off = 50These results are for medic al treatment only. The positive findings are unconfirmed. Request confirmatory/quanti tative test if needed. ID Date Data Source [id number] 02/24/2016 02:11:00 PM EDT [facility] Name Value Range Interpretation Description Data Sup porting Code Source(s) Document(s ) Negative Normal (applies Test [facility] Test Urine, to non-numeric Urine, Health System Visibility results) Visibility Color Color Complete Complete This test can detect HCG urine concentra tion of 25mIU/ml or greater. Negative result at 4 minute reading does not rule out ea rly . If clinically indicated, serum quantitative HCG test should be ordered. ID Date Data Source [id number] 02/24/2016 02:11:00 PM EDT [facility] System Name Value Range Interpretation Description Data Sup porting Code Source(s) Document(s ) Color YELLOW Yellow Normal (applies Color [facility] to non-numeric Health results) System Appearance of CLEAR Clear Normal (applies Urine [facility] Urine to non-numeric Appearance Health results) System Specific 1.025 Normal (applies Urine Specific [facility] gravity of to non-numeric [facility] Urine results) System pH.. 5.5 4.6 - 8.0 Normal (applies pH.. [facility] {pH_units} pH units to non-numeric Health results) System Glucose, UA NEGATIVE < 50 Normal (applies Glucose, UA [facility] mg/dl to non-numeric Health results) System Protein NEGATIVE < 30 Normal (applies Protein [facility] [Mass/volume] mg/dl to non-numeric Health in Serum or results) System Plasma Bilirubin NEGATIVE Negative Normal (applies Bilirubin [facility] Urine Sm to Lg to non-numeric Urine Health results) System Urobilinogen 0.2 mg/dL Normal (applies Urobilinogen [facility] [Mass/volume] to non-numeric UA Health in Urine results) System Ketones NEGATIVE Negative Normal (applies Ketones UA [facility] [Mass/volume] Tr to Lg to non-numeric Health in Urine results) System Nitrate+Nitrit NEGATIVE Negative Normal (applies Nitrite [facility] Neg/Pos to non-numeric Health [Mass/volume] results) System in Unspecified specimen Leukocyte MODERATE Negative Abnormal Leukocyte [facility] esterase Tr to Lg (applies to Esterase Health [Units/volume] non-numeric Concentration System in Urine results) Leukocytes 20-25 0 - 2 Normal (applies White Blood [facility] [#/volume] in /HPF to non-numeric Cells Health Unspecified results) System specimen by Automated count White Blood 0-1 0 Normal (applies White Blood [facility] Cell Clump to non-numeric Cell Clump Health results) System Red Blood 15-20 0 - 1 Normal (applies Red Blood [facility] Cells /HPF to non-numeric Cells Health results) System Transitional 0-2 0 /HPF Normal (applies Transitional [facility] Epithelial to non-numeric Epithelial Health results) System Epithelial 1-3 0 - 3 Normal (applies Epithelial [facility] cells /HPF to non-numeric Cells Health [Presence] in results) System Unspecified specimen by Wet preparation Urine Blood MODERATE Normal (applies Urine Blood [facility] to non-numeric Health results) System ID Date Data Source [id number] 02/23/2016 02:35:00 PM EDT [facility] System Name Value Range Interpretation Description Data Sup porting Code Source(s) Document(s ) Leukocytes 9.4 4.8 - Normal (applies WBC Count [facility] [#/volume] in {10^3_uL 10.8 to non-numeric Health Unspecified } 10^3 uL results) System specimen by Automated count Erythrocytes 4.25 3.80 - Normal (applies RBC Count [facility] [#/volume] in {10^6_uL 5.20 to non-numeric Health Blood by } 10^6 uL results) System Automated count Hemoglobin 13.4 12.0 - Normal (applies Hemoglobin [facility] [Mass/volume] in {gm/dL} 16.0 to non-numeric Health Blood gm/dL results) System Hematocrit 40.2 % 36.0 - Normal (applies Hematocrit [facility] [Volume 46.0 % to non-numeric Health Fraction] of results) System Blood Erythrocyte mean 94.6 fl 80.0 - Normal (applies MCV [facility] corpuscular 100.0 to non-numeric Health volume [Entitic fl results) System volume] by Automated count Erythrocyte mean 31.5 pg 26.0 - Normal (applies [facility] corpuscular 34.0 pg to non-numeric Health hemoglobin results) System [Entitic mass] by Automated count Erythrocyte mean 33.3 33.0 - Normal (applies [facility] corpuscular {gm/dL} 37.0 to non-numeric Health hemoglobin gm/dL results) System concentration [Mass/volume] by Automated count Erythrocyte 14.4 % 11.5 - Normal (applies RDW-CV [facility] distribution 14.5 % to non-numeric Health width [Entitic results) System volume] by Automated count Platelets 304 130 - Normal (applies Platelet [facility] [#/volume] in {10^3_uL 400 to non-numeric Count Health Plasma by } 10^3 uL results) System Automated count Platelet mean 10.1 fl 7.4 - Normal (applies MPV [facility] volume [Entitic 10.4 fl to non-numeric Health volume] in Blood results) System by Automated count Monocytes 0.4 0.3 - Normal (applies Monocyte # [facility] [#/volume] in {10^3_uL 0.9 to non-numeric Health Blood by Manual } 10^3 uL results) System count Eosinophils 0.21 0.05 - Normal (applies Eosinophil # [facility] [#/volume] in {10^3_uL 0.30 to non-numeric Health Blood } 10^3 uL results) System Neutrophils 5.5 2.0 - Normal (applies Neutrophil # [facility] [#/volume] in {10^3_uL 8.1 to non-numeric Health Body fluid } 10^3 uL results) System Basophils 0.05 0.00 - Normal (applies Basophil # [facility] [#/volume] in {10^3_uL 0.10 to non-numeric Health Blood by } 10^3 uL results) System Automated count Lymphocyte # 3.2 1.0 - Normal (applies Lymphocyte # [facility] {10^3_uL 5.5 to non-numeric Health } 10^3 uL results) System Neutrophils/100 59.0 % 0.0 - Normal (applies Neutrophil % Reynaldo josy leukocytes in 120.0 % to non-numeric Health Blood by results) System Automated count Monocytes/100 4.7 % 6.0 - Below low normal Monocyte % [facility] leukocytes in 9.0 % Health Blood System Eosinophils/100 2.2 % 1.0 - Normal (applies Eosinophil % Reynaldo josy leukocytes in 3.0 % to non-numeric Health Unspecified results) System specimen Basophils/100 0.5 % 0.0 - Normal (applies Basophil % [facility] leukocytes in 1.0 % to non-numeric Health Unspecified results) System specimen by Manual count Lymphocytes 33.6 % 21.0 - Normal (applies Lymphocyte % [facility] [#/volume] in 51.0 % to non-numeric Health Blood by results) System Automated count ID Date Data Source [id number] 02/23/2016 02:35:00 PM EDT Marciodamian Blackman [facility] System Name Value Range Interpretation Description Data Sup porting Code Source(s) Document(s ) Valproate 15.8 "." Normal (applies Valproic Acid [facility] [Mass/volume ug/ml ug/ml to non-numeric Level, Serum Health Sy stem ] in Serum results) or Plasma Therapeutic 50 - 100Toxic >100 ug/mL ID Date Data Source [id number] 02/23/2016 02:35:00 PM EDT N[facility] Yehuda [facility] System Name Value Range Interpretation Description Data Sup porting Code Source(s) Document(s ) Thyrotropin 1.880 0.380 - Normal (applies Thyroid [facility] [Mass/volume] {mIU/mL} 6.150 to non-numeric Stimulating Health in Serum or mIU/mL results) Hormone, System Plasma Serum ID Date Data Source [id number] 02/23/2016 02:35:00 PM EDT [facility] System Name Value Range Interpretation Description Data Sup porting Code Source(s) Document(s ) Sodium 144 137 - Normal (applies Sodium, Serum [facility] [Moles/volume] in mmol/L 145 to non-numeric Health Serum or Plasma mmol/L results) System Potassium 4.3 3.6 - Normal (applies Potassium, [facility] [Mass/volume] in mmol/L 5.0 to non-numeric Serum Health Serum or Plasma mmol/L results) System Chloride 104 98 - Normal (applies Chloride, [facility] [Moles/volume] in mmol/L 107 to non-numeric Serum Health Serum or Plasma mmol/L results) System Carbon dioxide, 31.0 22.0 - Above high CO2, Serum [facility] total mmol/L 30.0 normal Health [Moles/volume] in mmol/L System Serum or Plasma Total Protein 6.8 6.3 - Normal (applies Total Protein [facility] mg/dl 8.2 to non-numeric Health mg/dl results) System Glucose 74 65 - Normal (applies Glucose, [facility] [Mass/volume] in mg/dL 105 to non-numeric Serum Health Serum or Plasma mg/dL results) System Urea nitrogen 16 7 - 18 Normal (applies Blood Urea [facility] [Mass/volume] in mg/dl mg/dl to non-numeric Nitrogen, Health Serum or Plasma results) Serum System Creatinine 0.90 0.70 - Normal (applies Creatinine, [facility] [Mass/volume] in mg/dl 1.20 to non-numeric Serum Health Serum or Plasma mg/dl results) System Alkaline 64 38 - Normal (applies Alkaline [facility] phosphatase {IU/L} 126 to non-numeric Phosphatase, Health isoenzymes IU/L results) Serum System [Enzymatic activity/volume] in Serum or Plasma by Heat stability Bilirubin direct 0.4 0.2 - Normal (applies Bilirubin, [facility] and total panel mg/dl 1.3 to non-numeric Serum Total Health [Mass/volume] - mg/dl results) System Serum or Plasma Direct Bilirubin 0.2 0.0 - Normal (applies Direct [facility] mg/dl 0.4 to non-numeric Bilirubin Health mg/dl results) System Aspartate 16 5 - 40 Normal (applies Aspartate [facility] aminotransferase {IU/L} IU/L to non-numeric Transaminase, Heal th [Enzymatic results) Serum System activity/volume] in Serum or Plasma by With P-5'-P Albumin 4.4 3.9 - Normal (applies Albumin, [facility] [Mass/volume] in {gm/dl} 5.0 to non-numeric Serum Health Serum or Plasma gm/dl results) System I. Phosphorus 4.1 2.5 - Normal (applies I. Phosphorus [facility] mg/dl 4.5 to non-numeric Health mg/dl results) System Alanine 12 7 - 56 Normal (applies Alanine [facility] aminotransferase {IU/L} IU/L to non-numeric Aminotransfer [facility]al th [Enzymatic results) ase, Serum System activity/volume] in Serum or Plasma Calcium 9.9 8.4 - Normal (applies Calcium, [facility] [Mass/volume] in mg/dl 10.2 to non-numeric Total Serum Health Serum or Plasma mg/dl results) System A/G Ratio 1.83 Normal (applies A/G Ratio [facility] to non-numeric Health results) System Urate 5.1 2.5 - Normal (applies Uric Acid, [facility] [Mass/volume] in mg/dl 7.5 to non-numeric Serum Health Serum or Plasma mg/dl results) System Anion gap in Serum 9.00 8.00 - Normal (applies Anion Gap Reynaldo josy or Plasma mmol/L 12.00 to non-numeric Health mmol/L results) System Glomerular 67.00 Normal (applies GFR [facility] filtration to non-numeric Health rate/1.73 sq results) System M.predicted [Volume Rate/Area] in Serum or Plasma by Creatinine-based formula (CKD-EPI) eGFR will provide clinicians with a more accurate indicator of renal function then the serum creatinine. The eGFR is automa tically calculated from an empiric formula (endorsed by the [employer] ion) which incorporates age, sex, and race.Clinicians may notice surprisingly low GFR's with serum creatinine valueswithin normal range- particularly in elderly wo men (with low muscle mass).In the hospital setting, the eGFR should add an element of safety in drug dosing, in assessing the risk of IV contrast administration, and in assessing vascular risk.The NKF staging system is as follows:Normal: eGFR >90 with no kidney markersStage 1: eGFR >90 with kidney markers*Stage 2: eGFR 60- 89Stage 3: eGFR 30-59Stage 4: eGFR 15-29Stage 5: eGFR <15 (usually requir ing dialysis)*Markers include: Proteinuria, Hematuria, abnormal imaging-studies, or other blood or urine test abnormalities ID Date Data Source [id number] 02/23/2016 02:35:00 PM EDT Nomi carrillo System Name Value Range Interpretation Description Data Sup porting Code Source(s) Document(s ) Triglyceride 76 mg/dl 35 - 135 Normal (applies Triglycerides [facility] [Mass/volume] mg/dl to non-numeric , Serum Health in Serum or results) System Plasma Optimal = < 100 mg/dLBoderline High = 15 0 - 199 mg/dLHigh = 200 - 499 mg/dLVery High = > 500 mg/dL Cholesterol 167 mg/dl *.* mg/dl Normal (applies Cholesterol, [facility] [Mass/volume] in to non-numeric Serum Health S ystem Serum or Plasma results) <200 mg/dL = [id number] - 239 md/dL = Borderline>240 mg/dL = High Risk Cholesterol in HDL 65.0 mg/dL 32.0 - Normal (applies HDL Choleste rol, [facility] [Mass/volume] in 75.0 mg/dL to non-numeric Serum Health System Serum or Plasma results) Cholesterol in LDL 86.8 mg/dL Normal (applies Low Density [facility] [Mass/volume] in to non-numeric Lipoprotein, Healt h System Serum or Plasma results) Calculated OPTIMAL: LESS THAN 100 mg/dLNEAR OPTIMAL : 100 - 129 mg/dLBODERLINE HIGH: 130 - 150 mg/dL Cholesterol in VLDL 15.2 Normal (applies to VLDL, Serum [facility] [Mass/volume] in non-numeric System Serum or Plasma results) CHD Risk 2.57 2.40 - Normal (applies to CHD Risk [facility] 5.30 non-numeric System results) ID Date Data Source [id number] 02/23/2016 02:35:00 PM EDT Reynaldodamian [facility] System Name Value Range Interpretation Code Description Data Suha rce(s) Supporting Document(s ) HbA1C 5.2 % 4.6 - 6.2 % Normal (applies to HbA1C [facility] non-numeric Health System results) ID Date Data Source [id number] 12/06/2015 10:35:00 AM EST [facility] System Name Value Range Interpretation Description Data Sup porting Code Source(s) Document(s ) Strep Group Negative Normal (applies to Strep Group A Reynaldo josy A Direct non-numeric Direct Antigen Health System Antigen results) Method: ImmunochromatographicRapid Strep Grp A preliminary test only!!! Final result will be confirmed by culture. ID Date Data Source [id number] 11/27/2015 05:49:00 AM EST [facility] Name Value Range Interpretation Description Data Sup porting Code Source(s) Document(s ) Amphetamine Negative Negative Normal (applies Amphetamine [facility] [Mass/volume] ng/ml to non-numeric Level, Urine Health in Urine results) System Cut-off = 1000 ng/mL Barbiturates Negative Negative Normal (applies Barbiturate [facility] [Mass/volume] in ng/ml to non-numeric Screen, Urine Heal System Urine by Screen results) method Cut-off = 200 ng/mL Benzodiazepines Negative Negative Normal Benzodiazepines, [facility] [Mass/volume] in ng/mL (applies to Urine Health Urine non-numeric System results) Cut-off = 200 ng/mL Cocaine Negative Negative Normal (applies Cocaine [facility] metabolites.other ng/ml to non-numeric Metabolite Health System [Mass/volume] in results) Screen, Urine Urine Cut-off = 300 ng/mL Methadone Negative Negative Normal (applies Methadone [facility] [Mass/volume] in to non-numeric Level, Urine Healt h System Urine results) Cut-off = 300 ng/mL Opiate 300, Negative Negative ng/ml Normal (applies to Opiate 300, [facility] Urine non-numeric Urine [facility] System results) Cut-off = 300 ng/mL Phencyclidine Positive Negative Abnormal Phencyclidine, [facility] [Mass/volume] in ng/ml (applies to Urine Health Syst em Urine non-numeric results) Cut-off = 25 ng/mL THC Negative Negative ng/mL Normal (applies to THC [facility] non-numeric results) Cutt-off = 50These results are for medic al treatment only. The positive findings are unconfirmed. Request confirmatory/quanti tative test if needed. ID Date Data Source [id number] 11/27/2015 03:00:00 AM EST [facility] System Name Value Range Interpretation Description Data Sup porting Code Source(s) Document(s ) Negative Normal (applies Test [facility] Test Urine, to non-numeric Urine, Health System Visibility results) Visibility Color Color Complete Complete This test can detect HCG urine concentra tion of 25mIU/ml or greater. Negative result at 4 minute reading does not rule out ea rly . If clinically indicated, serum quantitative HCG test should be ordered. ID Date Data Source [id number] 11/27/2015 03:00:00 AM EST [facility] System Name Value Range Interpretation Description Data Sup porting Code Source(s) Document(s ) Color YELLOW Yellow Normal (applies Color [facility] to non-numeric Health results) System Appearance of SL CLOUDY Clear Normal (applies Urine [facility] Urine to non-numeric Appearance Health results) System Specific 1.010 Normal (applies Urine Specific [facility] gravity of to non-numeric [facility] Urine results) System pH.. 6.5 4.6 - 8.0 Normal (applies pH.. [facility] {pH_units} pH units to non-numeric Health results) System Glucose, UA NEGATIVE < 50 Normal (applies Glucose, UA [facility] mg/dl to non-numeric Health results) System Protein NEGATIVE < 30 Normal (applies Protein [facility] [Mass/volume] mg/dl to non-numeric Health in Serum or results) System Plasma Bilirubin NEGATIVE Negative Normal (applies Bilirubin [facility] Urine Sm to Lg to non-numeric Urine Health results) System Urobilinogen 1.0 mg/dL Normal (applies Urobilinogen [facility] [Mass/volume] to non-numeric UA Health in Urine results) System Ketones 15 Negative Abnormal Ketones UA [facility] [Mass/volume] {Tr_to_Lg} Tr to Lg (applies to Health in Urine non-numeric System results) Nitrate+Nitrit NEGATIVE Negative Normal (applies Nitrite [facility] Neg/Pos to non-numeric Health [Mass/volume] results) System in Unspecified specimen Leukocyte MODERATE Negative Abnormal Leukocyte [facility] esterase Tr to Lg (applies to Esterase Health [Units/volume] non-numeric Concentration System in Urine results) Leukocytes 5-10 0 - 2 Normal (applies White Blood [facility] [#/volume] in /HPF to non-numeric Cells Health Unspecified results) System specimen by Automated count Red Blood 10-15 0 - 1 Normal (applies Red Blood [facility] Cells /HPF to non-numeric Cells Health results) System Urine Blood LARGE Normal (applies Urine Blood [facility] to non-numeric Health results) System ID Date Data Source [id number] 11/27/2015 03:00:00 AM EST [facility] System Name Value Range Interpretation Description Data Sup porting Code Source(s) Document(s ) Prothrombin 10.60 9.70 - Normal (applies Prothrombin [facility] time (PT) {seconds 11.80 to non-numeric time (PT) Health } seconds results) System INR in Blood 1.02 0.70 - Normal (applies INR Result [facility] by Coagulation {Ratio} 1.10 to non-numeric Health assay Ratio results) System Normal = 0.7-1.1Therapeutic = 2.0-3.0Mec hanical Heart = 3.0-4.5 ID Date Data Source [id number] 11/27/2015 03:00:00 AM EST [facility] System Name Value Range Interpretation Description Data Sup porting Code Source(s) Document(s ) Leukocytes 6.5 4.8 - Normal (applies WBC Count [facility] [#/volume] in {10^3_uL 10.8 to non-numeric Health Unspecified } 10^3 uL results) System specimen by Automated count Erythrocytes 4.37 3.80 - Normal (applies RBC Count [facility] [#/volume] in {10^6_uL 5.20 to non-numeric Health Blood by } 10^6 uL results) System Automated count Hemoglobin 13.9 12.0 - Normal (applies Hemoglobin [facility] [Mass/volume] in {gm/dL} 16.0 to non-numeric Health Blood gm/dL results) System Hematocrit 39.8 % 36.0 - Normal (applies Hematocrit [facility] [Volume 46.0 % to non-numeric Health Fraction] of results) System Blood Erythrocyte mean 91.1 fl 80.0 - Normal (applies MCV [facility] corpuscular 100.0 to non-numeric Health volume [Entitic fl results) System volume] by Automated count Erythrocyte mean 31.8 pg 26.0 - Normal (applies [facility] corpuscular 34.0 pg to non-numeric Health hemoglobin results) System [Entitic mass] by Automated count Erythrocyte mean 34.9 33.0 - Normal (applies MCHC [facility] corpuscular {gm/dL} 37.0 to non-numeric Health hemoglobin gm/dL results) System concentration [Mass/volume] by Automated count Erythrocyte 13.2 % 11.5 - Normal (applies RDW-CV [facility] distribution 14.5 % to non-numeric Health width [Entitic results) System volume] by Automated count Platelets 228 130 - Normal (applies Platelet [facility] [#/volume] in {10^3_uL 400 to non-numeric Count Health Plasma by } 10^3 uL results) System Automated count Platelet mean 10.1 fl 7.4 - Normal (applies MPV [facility] volume [Entitic 10.4 fl to non-numeric Health volume] in Blood results) System by Automated count Monocytes 0.6 0.3 - Normal (applies Monocyte # [facility] [#/volume] in {10^3_uL 0.9 to non-numeric Health Blood by Manual } 10^3 uL results) System count Eosinophils 0.05 0.05 - Normal (applies Eosinophil # [facility] [#/volume] in {10^3_uL 0.30 to non-numeric Health Blood } 10^3 uL results) System Neutrophils 4.9 2.0 - Normal (applies Neutrophil # [facility] [#/volume] in {10^3_uL 8.1 to non-numeric Health Body fluid } 10^3 uL results) System Basophils 0.02 0.00 - Normal (applies Basophil # [facility] [#/volume] in {10^3_uL 0.10 to non-numeric Health Blood by } 10^3 uL results) System Automated count Lymphocyte # 1.0 1.0 - Below low normal Lymphocyte # [facility] {10^3_uL 5.5 Health } 10^3 uL System Neutrophils/100 74.5 % 0.0 - Normal (applies Neutrophil % Reynaldo josy leukocytes in 120.0 % to non-numeric Health Blood by results) System Automated count Monocytes/100 9.7 % 6.0 - Above high Monocyte % [facility] leukocytes in 9.0 % normal Health Blood System Eosinophils/100 0.8 % 1.0 - Below low normal Eosinophil % [facility] leukocytes in 3.0 % Health Unspecified System specimen Basophils/100 0.3 % 0.0 - Normal (applies Basophil % [facility] leukocytes in 1.0 % to non-numeric Health Unspecified results) System specimen by Manual count Lymphocytes 14.7 % 21.0 - Below low normal Lymphocyte % [facility] [#/volume] in 51.0 % Health Blood by System Automated count ID Date Data Source [id number] 11/27/2015 03:00:00 AM EST [facility] System Name Value Range Interpretation Description Data Sup porting Code Source(s) Document(s ) Sodium 140 137 - Normal (applies Sodium, Serum [facility] [Moles/volume] in mmol/L 145 to non-numeric Health Serum or Plasma mmol/L results) System Potassium 4.0 3.6 - Normal (applies Potassium, [facility] [Mass/volume] in mmol/L 5.0 to non-numeric Serum Health Serum or Plasma mmol/L results) System Chloride 103 98 - Normal (applies Chloride, [facility] [Moles/volume] in mmol/L 107 to non-numeric Serum Health Serum or Plasma mmol/L results) System Carbon dioxide, 24.0 22.0 - Normal (applies CO2, Serum [facility] total mmol/L 30.0 to non-numeric Health [Moles/volume] in mmol/L results) System Serum or Plasma Total Protein 7.4 6.3 - Normal (applies Total Protein [facility] mg/dl 8.2 to non-numeric Health mg/dl results) System Glucose 107 65 - Above high Glucose, [facility] [Mass/volume] in mg/dL 105 normal Serum Health Serum or Plasma mg/dL System Urea nitrogen 7 mg/dl 7 - 18 Normal (applies Blood Urea [facility] [Mass/volume] in mg/dl to non-numeric Nitrogen, Health Serum or Plasma results) Serum System Creatinine 0.82 0.70 - Normal (applies Creatinine, [facility] [Mass/volume] in mg/dl 1.20 to non-numeric Serum Health Serum or Plasma mg/dl results) System Alkaline 71 38 - Normal (applies Alkaline [facility] phosphatase {IU/L} 126 to non-numeric Phosphatase, Health isoenzymes IU/L results) Serum System [Enzymatic activity/volume] in Serum or Plasma by Heat stability Bilirubin.total 0.7 0.2 - Normal (applies Bilirubin, [facility] [Mass/volume] in mg/dl 1.3 to non-numeric Serum Total Health Serum or Plasma mg/dl results) System Direct Bilirubin 0.3 0.0 - Normal (applies Direct [facility] mg/dl 0.4 to non-numeric Bilirubin Health mg/dl results) System Aspartate 17 5 - 40 Normal (applies Aspartate [facility] aminotransferase {IU/L} IU/L to non-numeric Transaminase, Heal th [Enzymatic results) Serum System activity/volume] in Serum or Plasma by With P-5'-P Albumin 4.4 3.9 - Normal (applies Albumin, [facility] [Mass/volume] in {gm/dl} 5.0 to non-numeric Serum Health Serum or Plasma gm/dl results) System I. Phosphorus 2.4 2.5 - Below low normal I. Phosphorus Reynaldo josy mg/dl 4.5 Health mg/dl System Alanine 13 7 - 56 Normal (applies Alanine [facility] aminotransferase {IU/L} IU/L to non-numeric Aminotransfer Heal th [Enzymatic results) ase, Serum System activity/volume] in Serum or Plasma Calcium 9.5 8.4 - Normal (applies Calcium, [facility] [Mass/volume] in mg/dl 10.2 to non-numeric Total Serum Health Serum or Plasma mg/dl results) System A/G Ratio 1.47 Normal (applies A/G Ratio [facility] to non-numeric Health results) System Urate 4.0 2.5 - Normal (applies Uric Acid, [facility] [Mass/volume] in mg/dl 7.5 to non-numeric Serum Health Serum or Plasma mg/dl results) System Anion gap in Serum 13.00 8.00 - Above high Anion Gap [facility] or Plasma mmol/L 12.00 normal Health mmol/L System Glomerular 74.68 Normal (applies GFR [facility] filtration to non-numeric Health rate/1.73 sq results) System M.predicted [Volume Rate/Area] in Serum or Plasma by Creatinine-based formula (CKD-EPI) eGFR will provide clinicians with a more accurate indicator of renal function then the serum creatinine. The eGFR is automa tically calculated from an empiric formula (endorsed by the [employer] ion) which incorporates age, sex, and race.Clinicians may notice surprisingly low GFR's with serum creatinine valueswithin normal range- particularly in elderly wo men (with low muscle mass).In the hospital setting, the eGFR should add an element of safety in drug dosing, in assessing the risk of IV contrast administration, and in assessing vascular risk.The NKF staging system is as follows:Normal: eGFR >90 with no kidney markersStage 1: eGFR >90 with kidney markers*Stage 2: eGFR 60- 89Stage 3: eGFR 30-59Stage 4: eGFR 15-29Stage 5: eGFR <15 (usually requir ing dialysis)*Markers include: Proteinuria, Hematuria, abnormal imaging-studies, or other blood or urine test abnormalities ID Date Data Source [id number] 12/13/2014 06:00:00 AM LORE [facility] car[facility] System Name Value Range Interpretation Description Data Sup porting Code Source(s) Document(s ) Leukocytes 7.8 10 4.8 - Normal (applies WBC Count [facility] [#/volume] in 10.8 10 to non-numeric Health Unspecified results) System specimen by Automated count Erythrocytes 4.13 10 3.80 - Normal (applies RBC Count [facility] [#/volume] in 5.20 10 to non-numeric Health Blood by results) System Automated count Hemoglobin 12.9 12.0 - Normal (applies Hemoglobin [facility] [Mass/volume] in {gm/dL} 16.0 to non-numeric Health Blood gm/dL results) System Hematocrit 38.4 % 36.0 - Normal (applies Hematocrit [facility] [Volume 46.0 % to non-numeric Health Fraction] of results) System Blood Erythrocyte mean 93.0 fl 80.0 - Normal (applies MCV [facility] corpuscular 100.0 to non-numeric Health volume [Entitic fl results) System volume] by Automated count Erythrocyte mean 31.2 pg 26.0 - Normal (applies MCH [facility] corpuscular 34.0 pg to non-numeric Health hemoglobin results) System [Entitic mass] by Automated count Erythrocyte mean 33.6 33.0 - Normal (applies MCHC [facility] corpuscular {gm/dL} 37.0 to non-numeric Health hemoglobin gm/dL results) System concentration [Mass/volume] by Automated count Erythrocyte 13.9 % 11.5 - Normal (applies RDW-CV [facility] distribution 14.5 % to non-numeric Health width [Entitic results) System volume] by Automated count Platelets 238 10 130 - Normal (applies Platelet [facility] [#/volume] in 400 10 to non-numeric Count Health Plasma by results) System Automated count Platelet mean 10.4 fl 7.4 - Normal (applies MPV [facility] volume [Entitic 10.4 fl to non-numeric Health volume] in Blood results) System by Automated count Monocytes 0.5 10 0.3 - Normal (applies Monocyte # [facility] [#/volume] in 0.9 10 to non-numeric Health Blood by Manual results) System count Eosinophils 0.26 10 0.05 - Normal (applies Eosinophil # [facility] [#/volume] in 0.30 10 to non-numeric Health Blood results) System Neutrophils 5.2 10 2.0 - Normal (applies Neutrophil # [facility] [#/volume] in 8.1 10 to non-numeric Health Body fluid results) System Basophils 0.03 10 0.00 - Normal (applies Basophil # [facility] [#/volume] in 0.10 10 to non-numeric Health Blood by results) System Automated count Lymphocyte # 1.8 10 1.0 - Normal (applies Lymphocyte # [facility] 5.5 10 to non-numeric Health results) System Neutrophils/100 66.9 % 0.0 - Normal (applies Neutrophil % Reynaldo josy leukocytes in 120.0 % to non-numeric Health Blood by results) System Automated count Monocytes/100 6.9 % 6.0 - Normal (applies Monocyte % [facility] leukocytes in 9.0 % to non-numeric Health Blood results) System Eosinophils/100 3.3 % 1.0 - Above high Eosinophil % [facility] leukocytes in 3.0 % normal Health Unspecified System specimen Basophils/100 0.4 % 0.0 - Normal (applies Basophil % [facility] leukocytes in 1.0 % to non-numeric Health Unspecified results) System specimen by Manual count Lymphocytes 22.5 % 21.0 - Normal (applies Lymphocyte % [facility] [#/volume] in 51.0 % to non-numeric Health Blood by results) System Automated count ID Date Data Source [id number] 12/13/2014 06:00:00 AM EST [facility] Name Value Range Interpretation Description Data Sup porting Code Source(s) Document(s ) Thyrotropin 0.388 0.380 - Normal (applies Thyroid [facility] [Mass/volume] 6.150 to non-numeric Stimulating Health in Serum or results) Hormone, Serum System Plasma ID Date Data Source [id number] 12/13/2014 06:00:00 AM EST [facility] Name Value Range Interpretation Description Data Sup porting Code Source(s) Document(s ) Sodium 139 137 - Normal (applies Sodium, Serum [facility] [Moles/volume] in mmol/L 145 to non-numeric Health Serum or Plasma mmol/L results) System Potassium 4.5 3.6 - Normal (applies Potassium, [facility] [Mass/volume] in mmol/L 5.0 to non-numeric Serum Health Serum or Plasma mmol/L results) System Chloride 106 98 - Normal (applies Chloride, [facility] [Moles/volume] in mmol/L 107 to non-numeric Serum Health Serum or Plasma mmol/L results) System Carbon dioxide, 26.0 22.0 - Normal (applies CO2, Serum [facility] total mmol/L 30.0 to non-numeric Health [Moles/volume] in mmol/L results) System Serum or Plasma Total Protein 6.0 6.3 - Below low normal Total Protein [facility] mg/dl 8.2 Health mg/dl System Glucose 79 65 - Normal (applies Glucose, [facility] [Mass/volume] in mg/dL 105 to non-numeric Serum Health Serum or Plasma mg/dL results) System Urea nitrogen 13 7 - 18 Normal (applies Blood Urea [facility] [Mass/volume] in mg/dl mg/dl to non-numeric Nitrogen, [facility] Serum or Plasma results) Serum System Creatinine 0.80 0.70 - Normal (applies Creatinine, [facility] [Mass/volume] in mg/dl 1.20 to non-numeric Serum Health Serum or Plasma mg/dl results) System Alkaline 60 38 - Normal (applies Alkaline [facility] phosphatase {IU/L} 126 to non-numeric Phosphatase, [facility] isoenzymes IU/L results) Serum System [Enzymatic activity/volume] in Serum or Plasma by Heat stability Bilirubin.total 0.3 0.2 - Normal (applies Bilirubin, [facility] [Mass/volume] in mg/dl 1.3 to non-numeric Serum Total Health Serum or Plasma mg/dl results) System Direct Bilirubin 0.2 0.0 - Normal (applies Direct [facility] mg/dl 0.4 to non-numeric Bilirubin [facility] mg/dl results) System Aspartate 14 5 - 40 Normal (applies Aspartate [facility] aminotransferase {IU/L} IU/L to non-numeric Transaminase, [facility] [Enzymatic results) Serum System activity/volume] in Serum or Plasma by With P-5'-P Albumin 3.6 3.9 - Below low normal Albumin, [facility] [Mass/volume] in {gm/dl} 5.0 Serum Health Serum or Plasma gm/dl System I. Phosphorus 4.0 2.5 - Normal (applies I. Phosphorus [facility] mg/dl 4.5 to non-numeric Health mg/dl results) System Alanine 11 7 - 56 Normal (applies Alanine [facility] aminotransferase {IU/L} IU/L to non-numeric Aminotransfer [facility] [Enzymatic results) ase, Serum System activity/volume] in Serum or Plasma Calcium 9.4 8.4 - Normal (applies Calcium, [facility] [Mass/volume] in mg/dl 10.2 to non-numeric Total Serum Health Serum or Plasma mg/dl results) System A/G Ratio 1.50 Normal (applies A/G Ratio [facility] to non-numeric Health results) System Urate 4.9 2.5 - Normal (applies Uric Acid, [facility] [Mass/volume] in mg/dl 7.5 to non-numeric Serum Health Serum or Plasma mg/dl results) System Anion gap in Serum 7.00 8.00 - Below low normal Anion Gap [facility] or Plasma mmol/L 12.00 Health mmol/L System Glomerular 77.15 Normal (applies GFR [facility] filtration to non-numeric Health rate/1.73 sq results) System M.predicted [Volume Rate/Area] in Serum or Plasma by Creatinine-based formula (CKD-EPI) eGFR will provide clinicians with a more accurate indicator of renal function then the serum creatinine. The eGFR is automa tically calculated from an empiric formula (endorsed by the [employer]) which incorporates age, sex, and race.Clinicians may notice surprisingly low GFR's with serum creatinine valueswithin normal range- particularly in elderly wo men (with low muscle mass).In the hospital setting, the eGFR should add an element of safety in drug dosing, in assessing the risk of IV contrast administration, and in assessing vascular risk.The NKF staging system is as follows:Normal: eGFR >90 with no kidney markersStage 1: eGFR >90 with kidney markers*Stage 2: eGFR 60- 89Stage 3: eGFR 30-59Stage 4: eGFR 15-29Stage 5: eGFR <15 (usually requir ing dialysis)*Markers include: Proteinuria, Hematuria, abnormal imaging-studies, or other blood or urine test abnormalities ID Date Data Source [id number] 12/12/2014 06:00:00 AM EST [facility] Name Value Range Interpretation Description Data Sup porting Code Source(s) Document(s ) Leukocytes 7.5 10 4.8 - Normal (applies WBC Count [facility] [#/volume] in 10.8 10 to non-numeric Health Unspecified results) System specimen by Automated count Erythrocytes 4.01 10 3.80 - Normal (applies RBC Count [facility] [#/volume] in 5.20 10 to non-numeric Health Blood by results) System Automated count Hemoglobin 12.5 12.0 - Normal (applies Hemoglobin [facility] [Mass/volume] in {gm/dL} 16.0 to non-numeric Health Blood gm/dL results) System Hematocrit 37.4 % 36.0 - Normal (applies Hematocrit [facility] [Volume 46.0 % to non-numeric Health Fraction] of results) System Blood Erythrocyte mean 93.3 fl 80.0 - Normal (applies MCV [facility] corpuscular 100.0 to non-numeric Health volume [Entitic fl results) System volume] by Automated count Erythrocyte mean 31.2 pg 26.0 - Normal (applies MCH [facility] corpuscular 34.0 pg to non-numeric Health hemoglobin results) System [Entitic mass] by Automated count Erythrocyte mean 33.4 33.0 - Normal (applies MCHC [facility] corpuscular {gm/dL} 37.0 to non-numeric Health hemoglobin gm/dL results) System concentration [Mass/volume] by Automated count Erythrocyte 14.0 % 11.5 - Normal (applies RDW-CV [facility] distribution 14.5 % to non-numeric Health width [Entitic results) System volume] by Automated count Platelets 241 10 130 - Normal (applies Platelet [facility] [#/volume] in 400 10 to non-numeric Count Health Plasma by results) System Automated count Monocytes 0.5 10 0.3 - Normal (applies Monocyte # [facility] [#/volume] in 0.9 10 to non-numeric Health Blood by Manual results) System count Platelet mean 10.1 fl 7.4 - Normal (applies MPV [facility] volume [Entitic 10.4 fl to non-numeric Health volume] in Blood results) System by Automated count Eosinophils 0.27 10 0.05 - Normal (applies Eosinophil # [facility] [#/volume] in 0.30 10 to non-numeric Health Blood results) System Neutrophils 4.3 10 2.0 - Normal (applies Neutrophil # [facility] [#/volume] in 8.1 10 to non-numeric Health Body fluid results) System Basophils 0.03 10 0.00 - Normal (applies Basophil # [facility] [#/volume] in 0.10 10 to non-numeric Health Blood by results) System Automated count Lymphocyte # 2.5 10 1.0 - Normal (applies Lymphocyte # [facility] 5.5 10 to non-numeric Health results) System Neutrophils/100 57.2 % 0.0 - Normal (applies Neutrophil % [facility] jos[facility] leukocytes in 120.0 % to non-numeric Health Blood by results) System Automated count Eosinophils/100 3.6 % 1.0 - Above high Eosinophil % [facility] leukocytes in 3.0 % normal Health Unspecified System specimen Monocytes/100 6.0 % 6.0 - Normal (applies Monocyte % [facility] leukocytes in 9.0 % to non-numeric Health Blood results) System Basophils/100 0.4 % 0.0 - Normal (applies Basophil % [facility] leukocytes in 1.0 % to non-numeric Health Unspecified results) System specimen by Manual count Lymphocytes 32.8 % 21.0 - Normal (applies Lymphocyte % [facility] [#/volume] in 51.0 % to non-numeric Health Blood by results) System Automated count ID Date Data Source [id number] 12/12/2014 06:00:00 AM EST [facility] Name Value Range Interpretation Description Data Sup porting Code Source(s) Document(s ) Sodium 138 137 - Normal (applies Sodium, Serum [facility] [Moles/volume] in mmol/L 145 to non-numeric Health Serum or Plasma mmol/L results) System Potassium 4.0 3.6 - Normal (applies Potassium, [facility] [Mass/volume] in mmol/L 5.0 to non-numeric Serum Health Serum or Plasma mmol/L results) System Carbon dioxide, 25.0 22.0 - Normal (applies CO2, Serum [facility] total mmol/L 30.0 to non-numeric Health [Moles/volume] in mmol/L results) System Serum or Plasma Chloride 107 98 - Normal (applies Chloride, [facility] [Moles/volume] in mmol/L 107 to non-numeric Serum Health Serum or Plasma mmol/L results) System Total Protein 5.4 6.3 - Below low normal Total Protein Reynaldo josy mg/dl 8.2 Health mg/dl System Glucose 73 65 - Normal (applies Glucose, [facility] [Mass/volume] in mg/dL 105 to non-numeric Serum Health Serum or Plasma mg/dL results) System Urea nitrogen 7 mg/dl 7 - 18 Normal (applies Blood Urea [facility] [Mass/volume] in mg/dl to non-numeric Nitrogen, Health Serum or Plasma results) Serum System Creatinine 0.80 0.70 - Normal (applies Creatinine, [facility] [Mass/volume] in mg/dl 1.20 to non-numeric Serum Health Serum or Plasma mg/dl results) System Alkaline 57 38 - Normal (applies Alkaline [facility] phosphatase {IU/L} 126 to non-numeric Phosphatase, Health isoenzymes IU/L results) Serum System [Enzymatic activity/volume] in Serum or Plasma by Heat stability Bilirubin.total 0.4 0.2 - Normal (applies Bilirubin, [facility] [Mass/volume] in mg/dl 1.3 to non-numeric Serum Total Health Serum or Plasma mg/dl results) System Direct Bilirubin 0.2 0.0 - Normal (applies Direct [facility] mg/dl 0.4 to non-numeric Bilirubin Health mg/dl results) System Aspartate 14 5 - 40 Normal (applies Aspartate [facility] aminotransferase {IU/L} IU/L to non-numeric Transaminase, Heal [Enzymatic results) Serum System activity/volume] in Serum or Plasma by With P-5'-P Albumin 3.3 3.9 - Below low normal Albumin, [facility] [Mass/volume] in {gm/dl} 5.0 Serum Health Serum or Plasma gm/dl System I. Phosphorus 2.9 2.5 - Normal (applies I. Phosphorus [facility] mg/dl 4.5 to non-numeric Health mg/dl results) System Alanine 12 7 - 56 Normal (applies Alanine [facility] aminotransferase {IU/L} IU/L to non-numeric Aminotransfer [facility] th [Enzymatic results) ase, Serum System activity/volume] in Serum or Plasma Calcium 8.5 8.4 - Normal (applies Calcium, [facility] [Mass/volume] in mg/dl 10.2 to non-numeric Total Serum Health Serum or Plasma mg/dl results) System A/G Ratio 1.57 Normal (applies A/G Ratio [facility] to non-numeric Health results) System Urate 4.6 2.5 - Normal (applies Uric Acid, [facility] [Mass/volume] in mg/dl 7.5 to non-numeric Serum Health Serum or Plasma mg/dl results) System Anion gap in Serum 6.00 8.00 - Below low normal Anion Gap [facility] or Plasma mmol/L 12.00 Health mmol/L System Glomerular 77.15 Normal (applies GFR [facility] filtration to non-numeric Health rate/1.73 sq results) System M.predicted [Volume Rate/Area] in Serum or Plasma by Creatinine-based formula (CKD-EPI) eGFR will provide clinicians with a more accurate indicator of renal function then the serum creatinine. The eGFR is automa tically calculated from an empiric formula (endorsed by the [employer]) which incorporates age, sex, and race.Clinicians may notice surprisingly low GFR's with serum creatinine valueswithin normal range- particularly in elderly wo men (with low muscle mass).In the hospital setting, the eGFR should add an element of safety in drug dosing, in assessing the risk of IV contrast administration, and in assessing vascular risk.The NKF staging system is as follows:Normal: eGFR >90 with no kidney markersStage 1: eGFR >90 with kidney markers*Stage 2: eGFR 60- 89Stage 3: eGFR 30-59Stage 4: eGFR 15-29Stage 5: eGFR <15 (usually requir ing dialysis)*Markers include: Proteinuria, Hematuria, abnormal imaging-studies, or other blood or urine test abnormalities ID Date Data Source [id number] 12/11/2014 04:29:00 PM EST [facility] Name Value Range Interpretation Description Data Sup porting Code Source(s) Document(s ) HCG NEGATIVE Negative Normal (applies HCG [facility] Qualitative mIU/ml to non-numeric Qualitative Health results) System Default Normal RangesNegative <5Indeterm inate 5-25(Please repeat in 2 days.)Positive >25 ID Date Data Source [id number] 12/11/2014 08:50:00 AM EST [facility] Name Value Range Interpretation Description Data Sup porting Code Source(s) Document(s ) Color YELLOW Yellow Normal (applies Color [facility] to non-numeric Health results) System Appearance of CLEAR Clear Normal (applies Urine [facility] Urine to non-numeric Appearance Health results) System Specific 1.010 Normal (applies Urine Specific [facility] gravity of to non-numeric [facility] Urine results) System pH.. 6.0 4.6 - 8.0 Normal (applies pH.. [facility] {pH_units} pH units to non-numeric Health results) System Protein NEGATIVE < 30 Normal (applies Protein [facility] [Mass/volume] mg/dl to non-numeric Health in Serum or results) System Plasma Glucose, UA NEGATIVE < 50 Normal (applies Glucose, UA [facility] mg/dl to non-numeric Health results) System Bilirubin NEGATIVE Negative Normal (applies Bilirubin [facility] Urine Sm to Lg to non-numeric Urine Health results) System Urobilinogen 0.2 mg/dL Normal (applies Urobilinogen [facility] [Mass/volume] to non-numeric UA Health in Urine results) System Ketones NEGATIVE Negative Normal (applies Ketones UA [facility] [Mass/volume] Tr to Lg to non-numeric Health in Urine results) System Leukocyte SMALL Negative Abnormal Leukocyte [facility] esterase Tr to Lg (applies to Esterase Health [Units/volume] non-numeric Concentration System in Urine results) Nitrate+Nitrit NEGATIVE Negative Normal (applies Nitrite [facility] Neg/Pos to non-numeric Health [Mass/volume] results) System in Unspecified specimen Leukocytes 5-10 0 - 2 Normal (applies White Blood [facility] [#/volume] in /HPF to non-numeric Cells Health Unspecified results) System specimen by Automated count Red Blood 2-5 0 - 1 Normal (applies Red Blood [facility] Cells /HPF to non-numeric Cells Health results) System Epithelial FEW 0 - 3 Normal (applies Epithelial [facility] cells /HPF to non-numeric Cells Health [Presence] in results) System Unspecified specimen by Wet preparation Renal OCC 0 /HPF Normal (applies Renal [facility] Epithelial to non-numeric Epithelial Health results) System Bacteria FEW 0 - 5 Normal (applies Bacteria [facility] [Presence] in /HPF to non-numeric Health Unspecified results) System specimen Urine Blood MODERATE Normal (applies Urine Blood [facility] to non-numeric Health results) System ID Date Data Source [id number] 12/11/2014 07:06:00 AM EST [facility] Name Value Range Interpretation Description Data Sup porting Code Source(s) Document(s ) Prolactin 14.7 Normal (applies Prolactin, [facility] [Mass/volume] ng/mL to non-numeric Serum Health Syst em in Serum or results) Plasma Reference Range Female Postmenopausal: 2.0- 20.0 : 10.0-209.0 Non-: 3.0- 30.0 Test Performed at: [facility] [place] [address] Adriana Ruiz M.D. ID Date Data Source [id number] 12/11/2014 06:00:00 AM EST [facility] Name Value Range Interpretation Description Data Sup porting Code Source(s) Document(s ) Leukocytes 7.9 10 4.8 - Normal (applies WBC Count [facility] [#/volume] in 10.8 10 to non-numeric Health Unspecified results) System specimen by Automated count Erythrocytes 4.43 10 3.80 - Normal (applies RBC Count [facility] [#/volume] in 5.20 10 to non-numeric Health Blood by results) System Automated count Hemoglobin 13.9 12.0 - Normal (applies Hemoglobin [facility] [Mass/volume] in {gm/dL} 16.0 to non-numeric Health Blood gm/dL results) System Hematocrit 40.6 % 36.0 - Normal (applies Hematocrit [facility] [Volume 46.0 % to non-numeric Health Fraction] of results) System Blood Erythrocyte mean 91.6 fl 80.0 - Normal (applies MCV [facility] corpuscular 100.0 to non-numeric Health volume [Entitic fl results) System volume] by Automated count Erythrocyte mean 31.4 pg 26.0 - Normal (applies MCH [facility] corpuscular 34.0 pg to non-numeric Health hemoglobin results) System [Entitic mass] by Automated count Erythrocyte mean 34.2 33.0 - Normal (applies MCHC [facility] corpuscular {gm/dL} 37.0 to non-numeric Health hemoglobin gm/dL results) System concentration [Mass/volume] by Automated count Erythrocyte 14.0 % 11.5 - Normal (applies RDW-CV [facility] distribution 14.5 % to non-numeric Health width [Ent[facility] results) System volume] by Automated count Platelet mean 10.1 fl 7.4 - Normal (applies MPV [facility] volume [Entitic 10.4 fl to non-numeric Health volume] in Blood results) System by Automated count Platelets 271 10 130 - Normal (applies Platelet [facility] [#/volume] in 400 10 to non-numeric Count Health Plasma by results) System Automated count Monocytes 0.5 10 0.3 - Normal (applies Monocyte # [facility] [#/volume] in 0.9 10 to non-numeric Health Blood by Manual results) System count Neutrophils 4.7 10 2.0 - Normal (applies Neutrophil # [facility] [#/volume] in 8.1 10 to non-numeric Health Body fluid results) System Eosinophils 0.17 10 0.05 - Normal (applies Eosinophil # [facility] [#/volume] in 0.30 10 to non-numeric Health Blood results) System Basophils 0.02 10 0.00 - Normal (applies Basophil # [facility] [#/volume] in 0.10 10 to non-numeric Health Blood by results) System Automated count Lymphocyte # 2.5 10 1.0 - Normal (applies Lymphocyte # [facility] 5.5 10 to non-numeric Health results) System Neutrophils/100 59.4 % 0.0 - Normal (applies Neutrophil % [facility] josy leukocytes in 120.0 % to non-numeric Health Blood by results) System Automated count Monocytes/100 6.0 % 6.0 - Normal (applies Monocyte % [facility] leukocytes in 9.0 % to non-numeric Health Blood results) System Basophils/100 0.3 % 0.0 - Normal (applies Basophil % [facility] leukocytes in 1.0 % to non-numeric Health Unspecified results) System specimen by Manual count Eosinophils/100 2.2 % 1.0 - Normal (applies Eosinophil % [facility] josy leukocytes in 3.0 % to non-numeric Health Unspecified results) System specimen Lymphocytes 32.1 % 21.0 - Normal (applies Lymphocyte % [facility] [#/volume] in 51.0 % to non-numeric Health Blood by results) System Automated count ID Date Data Source [id number] 12/11/2014 06:00:00 AM EST [facility] Name Value Range Interpretation Description Data Sup porting Code Source(s) Document(s ) Sodium 140 137 - Normal (applies Sodium, Serum [facility] [Moles/volume] in mmol/L 145 to non-numeric Health Serum or Plasma mmol/L results) System Potassium 3.2 3.6 - Below low normal Potassium, [facility] [Mass/volume] in mmol/L 5.0 Serum Health Serum or Plasma mmol/L System Chloride 107 98 - Normal (applies Chloride, [facility] [Moles/volume] in mmol/L 107 to non-numeric Serum Health Serum or Plasma mmol/L results) System Carbon dioxide, 22.0 22.0 - Normal (applies CO2, Serum [facility] total mmol/L 30.0 to non-numeric Health [Moles/volume] in mmol/L results) System Serum or Plasma Total Protein 6.2 6.3 - Below low normal Total Protein [facility] josy mg/dl 8.2 Health mg/dl System Glucose 85 65 - Normal (applies Glucose, [facility] [Mass/volume] in mg/dL 105 to non-numeric Serum Health Serum or Plasma mg/dL results) System Creatinine 0.80 0.70 - Normal (applies Creatinine, [facility] [Mass/volume] in mg/dl 1.20 to non-numeric Serum Health Serum or Plasma mg/dl results) System Urea nitrogen 6 mg/dl 7 - 18 Below low normal Blood Urea [facility] [Mass/volume] in mg/dl Nitrogen, Health Serum or Plasma Serum System Alkaline 57 38 - Normal (applies Alkaline [facility] phosphatase {IU/L} 126 to non-numeric Phosphatase, [facility] isoenzymes IU/L results) Serum System [Enzymatic activity/volume] in Serum or Plasma by Heat stability Bilirubin.total 0.8 0.2 - Normal (applies Bilirubin, [facility] [Mass/volume] in mg/dl 1.3 to non-numeric Serum Total Health Serum or Plasma mg/dl results) System Direct Bilirubin 0.3 0.0 - Normal (applies Direct [facility] mg/dl 0.4 to non-numeric Bilirubin Health mg/dl results) System Aspartate 18 5 - 40 Normal (applies Aspartate [facility] aminotransferase {IU/L} IU/L to non-numeric Transaminase, Heal th [Enzymatic results) Serum System activity/volume] in Serum or Plasma by With P-5'-P I. Phosphorus 3.1 2.5 - Normal (applies I. Phosphorus [facility] mg/dl 4.5 to non-numeric Health mg/dl results) System Albumin 3.8 3.9 - Below low normal Albumin, [facility] [Mass/volume] in {gm/dl} 5.0 Serum Health Serum or Plasma gm/dl System Alanine 16 7 - 56 Normal (applies Alanine [facility] aminotransferase {IU/L} IU/L to non-numeric Aminotransfer Heal th [Enzymatic results) ase, Serum System activity/volume] in Serum or Plasma Calcium 9.0 8.4 - Normal (applies Calcium, [facility] [Mass/volume] in mg/dl 10.2 to non-numeric Total Serum Health Serum or Plasma mg/dl results) System Urate 5.0 2.5 - Normal (applies Uric Acid, [facility] [Mass/volume] in mg/dl 7.5 to non-numeric Serum Health Serum or Plasma mg/dl results) System A/G Ratio 1.58 Normal (applies A/G Ratio [facility] to non-numeric Health results) System Glomerular 77.16 Normal (applies GFR [facility] filtration to non-numeric Health rate/1.73 sq results) System M.predicted [Volume Rate/Area] in Serum or Plasma by Creatinine-based formula (CKD-EPI) eGFR will provide clinicians with a more accurate indicator of renal function then the serum creatinine. The eGFR is automa tically calculated from an empiric formula (endorsed by the [employer] ion) which incorporates age, sex, and race.Clinicians may notice surprisingly low GFR's with serum creatinine valueswithin normal range- particularly in elderly wo men (with low muscle mass).In the hospital setting, the eGFR should add an element of safety in drug dosing, in assessing the risk of IV contrast administration, and in assessing vascular risk.The NKF staging system is as follows:Normal: eGFR >90 with no kidney markersStage 1: eGFR >90 with kidney markers*Stage 2: eGFR 60- 89Stage 3: eGFR 30-59Stage 4: eGFR 15-29Stage 5: eGFR <15 (usually requir ing dialysis)*Markers include: Proteinuria, Hematuria, abnormal imaging-studies, or other blood or urine test abnormalities Anion gap in 11.00 mmol/L 8.00 - 12.00 Normal (applies to Anion Gap [facility] Serum or mmol/L non-numeric Health System Plasma results) ID Date Data Source [id number] 12/11/2014 06:00:00 AM [facility] System Name Value Range Interpretation Description Data Sup porting Code Source(s) Document(s ) Creatine 179 30 - 135 Above high normal Creatine [facility] kinase.MB {IU/L} IU/L Kinase, Serum Health System [Mass/volum e] in Serum or Plasma ID Date Data Source [id number] 12/11/2014 04:50:00 AM [facility] System Name Value Range Interpretation Description Data Sup porting Code Source(s) Document(s ) Gabapentin 0.00 Normal (applies to Gabapentin [facility] [Mass/volume] non-numeric Level, Serum Health Syst em in Serum or results) Plasma ID Date Data Source [id number] 12/10/2014 04:36:00 PM [facility] System Name Value Range Interpretation Description Data Sup porting Code Source(s) Document(s ) Bacteria NO GROWTH Culture [facility] identified in Bacteria Blood Health Syst em Blood by [facility] culture ID Date Data Source [id number] 12/10/2014 04:36:00 PM [facility] System Name Value Range Interpretation Description Data Sup porting Code Source(s) Document(s ) Bacteria NO GROWTH Culture [facility] identified in Bacteria Blood Health Syst em Blood by [facility] culture ID Date Data Source [id number] 12/10/2014 04:36:00 PM [facility] System Name Value Range Interpretation Description Data Sup porting Code Source(s) Document(s ) Color YELLOW Yellow Normal (applies Color [facility] to non-numeric Health results) System Specific 1.020 Normal (applies Urine Specific [facility] gravity of to non-numeric [facility] Urine results) System Appearance of CLEAR Clear Normal (applies Urine [facility] Urine to non-numeric Appearance Health results) System pH.. 6.0 4.6 - 8.0 Normal (applies pH.. [facility] {pH_units} pH units to non-numeric Health results) System Glucose, UA NEGATIVE < 50 Normal (applies Glucose, UA [facility] mg/dl to non-numeric Health results) System Protein NEGATIVE < 30 Normal (applies Protein [facility] [Mass/volume] mg/dl to non-numeric Health in Serum or results) System Plasma Ketones NEGATIVE Negative Normal (applies Ketones UA [facility] [Mass/volume] Tr to Lg to non-numeric Health in Urine results) System Bilirubin NEGATIVE Negative Normal (applies Bilirubin [facility] Urine Sm to Lg to non-numeric Urine Health results) System Nitrate+Nitrit NEGATIVE Negative Normal (applies Nitrite [facility] Neg/Pos to non-numeric Health [Mass/volume] results) System in Unspecified specimen Urobilinogen 0.2 mg/dL Normal (applies Urobilinogen [facility] [Mass/volume] to non-numeric UA Health in Urine results) System Leukocytes 10-20 0 - 2 Normal (applies White Blood [facility] [#/volume] in /HPF to non-numeric Cells Health Unspecified results) System specimen by Automated count Red Blood 5-10 0 - 1 Normal (applies Red Blood [facility] Cells /HPF to non-numeric Cells Health results) System Leukocyte TRACE Negative Abnormal Leukocyte [facility] esterase Tr to Lg (applies to Esterase Health [Units/volume] non-numeric Concentration System in Urine results) Urine Blood MODERATE Normal (applies Urine Blood [facility] to non-numeric Health results) System Epithelial FEW 0 - 3 Normal (applies Epithelial [facility] cells /HPF to non-numeric Cells Health [Presence] in results) System Unspecified specimen by Wet preparation Bacteria FEW 0 - 5 Normal (applies Bacteria [facility] [Presence] in /HPF to non-numeric Health Unspecified results) System specimen ID Date Data Source [id number] 12/10/2014 04:36:00 PM EST [facility] Name Value Range Interpretation Description Data Sup porting Code Source(s) Document(s ) Prothrombin 10.90 9.40 - Normal (applies Prothrombin [facility] time (PT) {seconds 10.90 to non-numeric time (PT) Health } seconds results) System INR in Blood 1.05 0.70 - Normal (applies INR Result [facility] by Coagulation {Ratio} 1.10 to non-numeric Health assay Ratio results) System Normal = 0.7-1.1Therapeutic = 2.0-3.0Mec hanical Heart = 3.0-4.5 ID Date Data Source [id number] 12/10/2014 04:36:00 PM EST [facility] Name Value Range Interpretation Description Data Sup porting Code Source(s) Document(s ) Erythrocytes 4.17 10 3.80 - Normal (applies RBC Count [facility] [#/volume] in 5.20 10 to non-numeric Health Blood by results) System Automated count Leukocytes 11.0 10 4.8 - Above high WBC Count [facility] [#/volume] in 10.8 10 normal Health Unspecified System specimen by Automated count Hemoglobin 13.1 12.0 - Normal (applies Hemoglobin [facility] [Mass/volume] in {gm/dL} 16.0 to non-numeric Health Blood gm/dL results) System Erythrocyte mean 91.8 fl 80.0 - Normal (applies MCV [facility] corpuscular 100.0 to non-numeric Health volume [Entitic fl results) System volume] by Automated count Hematocrit 38.3 % 36.0 - Normal (applies Hematocrit [facility] [Volume 46.0 % to non-numeric Health Fraction] of results) System Blood Erythrocyte mean 34.2 33.0 - Normal (applies MCHC [facility] corpuscular {gm/dL} 37.0 to non-numeric Health hemoglobin gm/dL results) System concentration [Mass/volume] by Automated count Erythrocyte mean 31.4 pg 26.0 - Normal (applies MCH [facility] corpuscular 34.0 pg to non-numeric Health hemoglobin results) System [Entitic mass] by Automated count Platelet mean 10.1 fl 7.4 - Normal (applies MPV [facility] volume [Entitic 10.4 fl to non-numeric Health volume] in Blood results) System by Automated count Platelets 286 10 130 - Normal (applies Platelet [facility] [#/volume] in 400 10 to non-numeric Count Health Plasma by results) System Automated count Erythrocyte 13.9 % 11.5 - Normal (applies RDW-CV [facility] distribution 14.5 % to non-numeric Health width [Entitic results) System volume] by Automated count Monocytes 0.6 10 0.3 - Normal (applies Monocyte # [facility] [#/volume] in 0.9 10 to non-numeric Health Blood by Manual results) System count Eosinophils 0.25 10 0.05 - Normal (applies Eosinophil # [facility] [#/volume] in 0.30 10 to non-numeric Health Blood results) System Basophils 0.03 10 0.00 - Normal (applies Basophil # [facility] [#/volume] in 0.10 10 to non-numeric Health Blood by results) System Automated count Neutrophils 6.9 10 2.0 - Normal (applies Neutrophil # [facility] [#/volume] in 8.1 10 to non-numeric Health Body fluid results) System Lymphocyte # 3.2 10 1.0 - Normal (applies Lymphocyte # [facility] 5.5 10 to non-numeric Health results) System Eosinophils/100 2.3 % 1.0 - Normal (applies Eosinophil % Reynaldo josy leukocytes in 3.0 % to non-numeric Health Unspecified results) System specimen Neutrophils/100 62.6 % 0.0 - Normal (applies Neutrophil % Reynaldo josy leukocytes in 120.0 % to non-numeric Health Blood by results) System Automated count Monocytes/100 5.7 % 6.0 - Below low normal Monocyte % [facility] leukocytes in 9.0 % Health Blood System Basophils/100 0.3 % 0.0 - Normal (applies Basophil % [facility] leukocytes in 1.0 % to non-numeric Health Unspecified results) System specimen by Manual count Lymphocytes 29.1 % 21.0 - Normal (applies Lymphocyte % [facility] [#/volume] in 51.0 % to non-numeric Health Blood by results) System Automated count ID Date Data Source [id number] 12/10/2014 04:36:00 PM EST [facility] Name Value Range Interpretation Description Data Sup porting Code Source(s) Document(s ) Sodium 141 137 - Normal (applies Sodium, Serum [facility] [Moles/volume] in mmol/L 145 to non-numeric Health Serum or Plasma mmol/L results) System Potassium 3.1 3.6 - Below low normal Potassium, [facility] [Mass/volume] in mmol/L 5.0 Serum Health Serum or Plasma mmol/L System Chloride 106 98 - Normal (applies Chloride, [facility] [Moles/volume] in mmol/L 107 to non-numeric Serum Health Serum or Plasma mmol/L results) System Carbon dioxide, 24.0 22.0 - Normal (applies CO2, Serum [facility] total mmol/L 30.0 to non-numeric Health [Moles/volume] in mmol/L results) System Serum or Plasma Total Protein 6.8 6.3 - Normal (applies Total Protein [facility] mg/dl 8.2 to non-numeric Health mg/dl results) System Glucose 73 65 - Normal (applies Glucose, [facility] [Mass/volume] in mg/dL 105 to non-numeric Serum Health Serum or Plasma mg/dL results) System Creatinine 0.90 0.70 - Normal (applies Creatinine, [facility] [Mass/volume] in mg/dl 1.20 to non-numeric Serum Health Serum or Plasma mg/dl results) System Urea nitrogen 9 mg/dl 7 - 18 Normal (applies Blood Urea [facility] [Mass/volume] in mg/dl to non-numeric Nitrogen, Health Serum or Plasma results) Serum System Alkaline 60 38 - Normal (applies Alkaline [facility] phosphatase {IU/L} 126 to non-numeric Phosphatase, Health isoenzymes IU/L results) Serum System [Enzymatic activity/volume] in Serum or Plasma by Heat stability Bilirubin direct 0.7 0.2 - Normal (applies Bilirubin, [facility] and total panel mg/dl 1.3 to non-numeric Serum Total Health [Mass/volume] - mg/dl results) System Serum or Plasma Aspartate 19 5 - 40 Normal (applies Aspartate [facility] aminotransferase {IU/L} IU/L to non-numeric Transaminase, Heal [Enzymatic results) Serum System activity/volume] in Serum or Plasma by With P-5'-P Direct Bilirubin 0.3 0.0 - Normal (applies Direct [facility] mg/dl 0.4 to non-numeric Bilirubin Health mg/dl results) System I. Phosphorus 2.2 2.5 - Below low normal I. Phosphorus Reynaldo josy mg/dl 4.5 Health mg/dl System Alanine 21 7 - 56 Normal (applies Alanine [facility] aminotransferase {IU/L} IU/L to non-numeric Aminotransfer Heal th [Enzymatic results) ase, Serum System activity/volume] in Serum or Plasma Albumin 4.1 3.9 - Normal (applies Albumin, [facility] [Mass/volume] in {gm/dl} 5.0 to non-numeric Serum Health Serum or Plasma gm/dl results) System Calcium 9.7 8.4 - Normal (applies Calcium, [facility] [Mass/volume] in mg/dl 10.2 to non-numeric Total Serum Health Serum or Plasma mg/dl results) System A/G Ratio 1.52 Normal (applies A/G Ratio [facility] to non-numeric Health results) System Anion gap in Serum 11.00 8.00 - Normal (applies Anion Gap Reynaldo josy or Plasma mmol/L 12.00 to non-numeric Health mmol/L results) System Urate 5.5 2.5 - Normal (applies Uric Acid, [facility] [Mass/volume] in mg/dl 7.5 to non-numeric Serum Health Serum or Plasma mg/dl results) System Glomerular 67.35 Normal (applies GFR [facility] filtration to non-numeric Health rate/1.73 sq results) System M.predicted [Volume Rate/Area] in Serum or Plasma by Creatinine-based formula (CKD-EPI) eGFR will provide clinicians with a more accurate indicator of renal function then the serum creatinine. The eGFR is automa tically calculated from an empiric formula (endorsed by the [employer] ion) which incorporates age, sex, and race.Clinicians may notice surprisingly low GFR's with serum creatinine valueswithin normal range- particularly in elderly wo men (with low muscle mass).In the hospital setting, the eGFR should add an element of safety in drug dosing, in assessing the risk of IV contrast administration, and in assessing vascular risk.The NKF staging system is as follows:Normal: eGFR >90 with no kidney markersStage 1: eGFR >90 with kidney markers*Stage 2: eGFR 60- 89Stage 3: eGFR 30-59Stage 4: eGFR 15-29Stage 5: eGFR <15 (usually requir ing dialysis)*Markers include: Proteinuria, Hematuria, abnormal imaging-studies, or other blood or urine test abnormalities ID Date Data Source [id number] 12/10/2014 04:36:00 PM EST [facility] System Name Value Range Interpretation Description Data Sup porting Code Source(s) Document(s ) Alcohol non Normal (applies Alcohol Ethyl, [facility] Ethyl, detected to non-numeric Blood Health System Blood None results) Detected ID Date Data Source [id number] 12/10/2014 04:36:00 PM EST [facility] Name Value Range Interpretation Description Data Sup porting Code Source(s) Document(s ) Troponin I 0.00 0.00 - Normal (applies Troponin I [facility] Quantitative ng/ml 0.04 to non-numeric Quantitative Health ng/ml results) System ID Date Data Source [id number] 12/10/2014 04:36:00 PM EST [facility] Name Value Range Interpretation Description Data Source(s ) Supporting Code Document(s ) Lipase 5 U/L 8 - 78 Below low normal Lipase, Serum [facility] [Enzymatic U/L Health System activity/v olume] in Serum or Plasma ID Date Data Source [id number] 12/10/2014 04:36:00 PM EST [facility] Name Value Range Interpretation Description Data Sup porting Code Source(s) Document(s ) Amphetamine Negative Negative Normal (applies Amphetamine [facility] [Mass/volume] ng/ml to non-numeric Level, Urine Health in Urine results) System Cut-off = 1000 ng/mL Barbiturates Negative Negative Normal (applies Barbiturate [facility] [Mass/volume] in ng/ml to non-numeric Screen, Urine [facility] System Urine by Screen results) method Cut-off = 200 ng/mL Benzodiazepines Negative Negative Normal Benzodiazepines, [facility] [Mass/volume] in ng/mL (applies to Urine Health Urine non-numeric System results) Cut-off = 200 ng/mL Cocaine Negative Negative Normal (applies Cocaine [facility] metabolites.other ng/ml to non-numeric Metabolite Health System [Mass/volume] in results) Screen, Urine Urine Cut-off = 300 ng/mL Methadone Negative Negative Normal (applies Methadone [facility] [Mass/volume] in to non-numeric Level, [facility] results) Cut-off = 300 ng/mL Opiate 300, Negative Negative ng/ml Normal (applies to Opiate 300, [facility] Urine non-numeric Urine Health System results) Cut-off = 300 ng/mL Phencyclidine Positive Negative Abnormal Phencyclidine, [facility] [Mass/volume] in ng/ml (applies to Urine Health Syst em Urine non-numeric results) Cut-off = 25 ng/mL THC Negative Negative ng/mL Normal (applies to THC [facility] non-numeric results) Cutt-off = 50These results are for medic al treatment only. The positive findings are unconfirmed. Request confirmatory/quanti tative test if needed. ID Date Data Source [id number] 12/10/2014 04:36:00 PM EST [facility] Name Value Range Interpretation Description Data Sup porting Code Source(s) Document(s ) Creatine 177 30 - 135 Above high normal Creatine [facility] kinase.MB {IU/L} IU/L Kinase, Serum Health System [Mass/volum e] in Serum or Plasma ID Date Data Source [id number] 12/10/2014 04:36:00 PM EST [facility] System Name Value Range Interpretation Description Data Sup porting Code Source(s) Document(s ) Amylase 55 30 - 110 Normal (applies Amylase, Serum [facility] [Enzymatic {IU/L} IU/L to non-numeric Health System activity/vo results) lume] in Serum or Plasma Procedure Social History Code Duration Value Status Description Data Source(s ) Smoking 04/22/2020 Current Smoker completed Current Smoker eCW3 ( [place] 12:00:00 AM [facility]) Smoking 01/18/2020 Current Smoker completed Current Smoker eCW3 ( [place] 12:00:00 AM [facility]) Smoking 03/14/2019 Daily Smoker completed Daily Smoker [facility] 10:12:00 PM EDT Medical C enter Smoking 03/14/2019 Daily Smoker completed Daily Smoker [facility] 09:39:00 PM EDT Medical C enter Smoking 03/14/2019 Daily Smoker completed Daily Smoker [facility] 09:33:00 PM EDT Medical C enter Smoking Unknown if ever completed Unknown if ever Leroy Tellez smoked [facility] Current Smoker completed Current Smoker eCW3 ( [facility]) Current Smoker completed Current Smoker eCW3 ( [facility]) Smoking Unknown if ever completed Unknown if ever eCW2 ([place] smoked smoked [facility]) Smoking Unknown if ever completed Unknown if ever eCW2 ([place] smoked smoked [facility]) Smoking Unknown if ever completed Unknown if ever eCW2 ([place] smoked smoked [facility]) Smoking Unknown if ever completed Unknown if ever eCW2 ([place] smoked smoked [facility]) Vital Signs ID Date Data Source UNK Name Value Range Interpretation Code Description Data Source(s) Diastolic blood 87 mm[Hg] 87 mm[Hg] eCW3 ([facility] son pressure [facility]) Systolic blood 125 mm[Hg] 125 mm[Hg] eCW3 ([facility] on pressure [facility]) Body temperature 98.2 [degF] 98.2 [degF] eCW3 ( [facility]) Heart rate 20 /min 20 /min eCW3 ([facility]) Body mass index 18.19 kg/m2 18.19 kg/m2 eCW3 ([facility] (BMI) [Ratio] [facility]) Body weight 106 [lb_av] 106 [lb_av] eCW3 ([facility]) Body height 64 [in_i] 64 [in_i] eCW3 ([facility]) Body mass index 18.9 kg/m2 18.9 kg/m2 [facility] (BMI) [Ratio] Health Syst em Body temperature 36.4 [place] 0 - 99.9 Below low normal 36.4 [facility] Body temperature 97.6 [degF] 0 - 200 Normal (applies to 97.6 [degF ] [facility] non-numeric Health System results) Diastolic blood 104 mm[Hg] 0 - 999 Above upper panic 104 mm[Hg] [facility] pressure limits Health System Systolic blood 133 mm[Hg] 0 - 999 Normal (applies to 133 mm[Hg] [facility] pressure non-numeric Health System results) Deprecated Oxygen 100 % 0 - 999 Normal (applies to 100 % [facility] saturation in non-numeric Health Sys tem Capillary blood results) by Oximetry Respiratory rate 16 0 - 999 Normal (applies to 16 [facility] non-numeric [facility] System results) Heart rate 78 0 - 999 Normal (applies to 78 [facility] non-numeric [facility] System results) Body weight 53.2 kg 53.2 kg [facility] Measured Health System Body height 167.64 cm 167.64 cm [facility] Health System Body surface area 1.5 m2 [address] [facility] ore Derived from Health Syste m formula Body temperature 36.840654 36.474761 Cal[place] [facility] Respiratory rate 17 /min 17 /min [facility] Oxygen saturation 98 % 98 % [facility] osephs in Arterial blood [facility] by Pulse oximetry Heart rate 81 /min 81 /min [facility] Diastolic blood 75 mm[Hg] 75 mm[Hg] [facility] Systolic blood 152 mm[Hg] 152 mm[Hg] [facility] Body weight 56.731162 56.937608 kg [facility] hs Measured kg Medical Center Body temperature 36.224400 36.484971 Cal[facility] Respiratory rate 17 /min 17 /min [facility] Oxygen saturation 100 % 100 % [facility] in Arterial blood Medical Center by Pulse oximetry Heart rate 90 /min 90 /min [facility] Diastolic blood 106 mm[Hg] 106 mm[Hg] [facility] pressure [facility] Center Systolic blood 160 mm[Hg] 160 mm[Hg] [facility] pressure Medical Center Diastolic blood 86 mm[Hg] 86 mm[Hg] eCW3 ([facility]) Systolic blood 112 mm[Hg] 112 mm[Hg] eCW3 ([facility]) Body temperature 98.3 [degF] 98.3 [degF] eCW3 ( [facility]) Heart rate 18 /min 18 /min eCW3 ([facility]) Body mass index 18.19 kg/m2 18.19 kg/m2 eCW3 ([facility] (BMI) [Ratio] [facility]) Body weight 106 [lb_av] 106 [lb_av] eCW3 ([facility]) Body height 64 [in_i] 64 [in_i] eCW3 ([facility]) Respiratory rate 17 0 - 999 Normal (applies to 17 [facility] non-numeric [facility] System results) Deprecated Oxygen 99 % 0 - 999 Normal (applies to 99 % [facility] saturation in non-numeric Health Sys tem Capillary blood results) by Oximetry Systolic blood 128 mm[Hg] 0 - 999 Normal (applies to 128 mm[Hg] [facility] pressure non-numeric Health System results) Diastolic blood 95 mm[Hg] 0 - 999 Above high normal 95 mm[Hg] [facility] pressure Health System Heart rate 88 0 - 999 Normal (applies to 88 [facility] non-numeric [facility] System results) Body temperature 36.6 Calista 0 - 99.9 Normal (applies to 36.6 [place] [facility] non-numeric Health System results) Body temperature 98 [degF] 0 - 200 Normal (applies to 98 [degF] [facility] non-numeric Health System results) Body height 162.56 cm 162.56 cm [facility] Health System Body weight 47.62 kg 47.62 kg [facility] Measured [facility] Body mass index 18 kg/m2 18 kg/m2 [facility] (BMI) [Ratio] Health Syst em Body surface area 1.4 m2 1.4 m2 [facility] Derived from Health Syste m formula Heart rate 91 0 - 999 Normal (applies to 91 [facility] non-numeric [facility] System results) Respiratory rate 15 0 - 999 Normal (applies to 15 [facility] non-numeric Health System results) Deprecated Oxygen 100 % 0 - 999 Normal (applies to 100 % [facility] saturation in non-numeric Health Sys tem Capillary blood results) by Oximetry Systolic blood 153 mm[Hg] 0 - 999 Above high normal 153 mm[Hg] [facility] pressure [facility] System Diastolic blood 111 mm[Hg] 0 - 999 Above upper panic 111 mm[Hg] [facility] pressure limits Health System Body temperature 36.5 Calista 0 - 99.9 Normal (applies to 36.5 Calista [facility] non-numeric Health System results) Body temperature 97.8 [degF] 0 - 200 Normal (applies to 97.8 [degF ] [facility] non-numeric Health System results) Body height 162.56 cm 162.56 cm [facility] Health System Body weight 44.45 kg 44.45 kg [facility] Measured Health System Body mass index 16.8 kg/m2 16.8 kg/m2 [facility] (BMI) [Ratio] Health Syst em Body surface area 1.4 m2 1.4 m2 [facility] Derived from [employer] Syste m formula Body mass index 21.4 kg/m2 21.4 kg/m2 [facility] (BMI) [Ratio] Health Syst Heart rate 86 0 - 999 Normal (applies to 86 [facility] non-numeric Health System results) Deprecated Oxygen 98 % 0 - 999 Normal (applies to 98 % [facility] saturation in non-numeric [facility] tem Capillary blood results) by Oximetry Systolic blood 100 mm[Hg] 0 - 999 Below low normal 100 mm[Hg] [facility] efior pressure Health System Diastolic blood 65 mm[Hg] 0 - 999 Below low normal 65 mm[Hg] [facility] pressure Health System Body temperature 97.1 [degF] 0 - 200 Normal (applies to 97.1 [degF ] [facility] non-numeric Health System results) Body temperature 36.1 [place] 0 - 99.9 Below low normal 36.1 [facility] Respiratory rate 15 0 - 999 Normal (applies to [facility] non-numeric [facility] results) Body height 162.56 cm 162.56 cm [facility] Body weight 56.69 kg 56.69 kg [facility] Measured [facility] System Body surface area 1.6 m2 1.6 m2 [facility] Derived from Health Syste m formula Diastolic blood 90 mm[Hg] 90 mm[Hg] eCW2 ([facility]) Systolic blood 147 mm[Hg] 147 mm[Hg] eCW2 ([facility]) Body temperature 98.2 [degF] 98.2 [degF] eCW2 ( [facility]) Heart rate 20 /min 20 /min eCW2 ([facility]) Body mass index 17.88 kg/m2 17.88 kg/m2 eCW2 ( [facility] (BMI) [Ratio] [facility]) Body weight 104.2 104.2 [lb_av] eCW2 ([facility] on Measured [lb_av] [facility]) Body height 64 [in_us] 64 [in_us] eCW2 ([facility]) Patient Treatment Plan of Care Planned Activity Planned Date Details Description Data Source (s) Ibuprofen 800 MG Oral Tablet 04/23/2020 eCW3 ([facility] 12:00:00 AM Replaced by [facility]) Levetiracetam 100 MG/ML 05/28/2019 [facility] Injectable Solution [Keppra] 04:58:23 PM EDT System Albuterol 0.833 MG/ML / 05/28/2019 [facility] Ipratropium [place] 0.167 04:58:05 PM EDT System MG/ML Inhalant Solution Divalproex Sodium 500 MG 05/28/2019 [facility] Delayed Release Oral Tablet 04:57:53 PM EDT System Amlodipine 2.5 MG Oral Tablet 05/28/2019 [facility] 04:57:42 PM EDT System NITROFURANTOIN, MACROCRYSTALS 07/25/2018 eCW2 ([facility] 25 MG / Nitrofurantoin, 12:00:00 AM EDT [facility]) Monohydrate 75 MG Oral Capsule [Macrobid] Albuterol 11/29/2016 [facility] 11:28:42 AM EST System Budesonide 0.16 MG/ACTUAT / 11/29/2016 [facility] formoterol fumarate 0.0045 11:28:08 AM EST System MG/ACTUAT Metered Dose Inhaler Albuterol 0.833 MG/ML / 11/29/2016 [facility] [employer] Ipratropium [place] 0.167 11:22:40 AM EST System MG/ML Inhalant Solution Valproic Acid 250 MG Oral 11/29/2016 [facility] 11:17:29 AM EST System pantoprazole 20 MG Delayed 11/29/2016 [facility] Release Oral Tablet 12:00:00 AM EST Syste m montelukast 10 MG Oral Tablet 11/29/2016 [facility] 12:00:00 AM EST System Escitalopram 10 MG Oral 11/29/2016 [facility] Health Tablet 12:00:00 AM EST System 24 HR quetiapine 50 MG 11/29/2016 [facility] Extended Release Oral Tablet 12:00:00 AM EST System Clonidine Hydrochloride 0.1 11/29/2016 [facility] Health MG Oral Tablet 12:00:00 AM EST System Divalproex Sodium 500 MG 08/07/2016 [facility] [employer] Delayed Release Oral Tablet 11:40:53 AM EDT System [Depakote] Divalproex Sodium 250 MG 08/07/2016 [facility] Health Delayed Release Oral Tablet 11:12:17 AM EDT System [Depakote] doxycycline hyclate 100 MG 02/24/2016 [facility] Health Oral Capsule 04:29:21 PM EDT System Azithromycin 250 MG Oral 12/06/2015 [facility] Tablet 12:38:10 PM EST System Acetaminophen 325 MG / 11/27/2015 [facility] Oxycodone Hydrochloride 5 MG 06:36:17 AM EST System Oral Tablet NITROFURANTOIN, MACROCRYSTALS 11/27/2015 [facility] 25 MG / Nitrofurantoin, 06:35:57 AM EST S ystem Monohydrate 75 MG Oral Capsule [Macrobid] Prednisone 50 MG Oral Tablet 01/17/2015 [facility] 07:29:17 PM EDT System aripiprazole 15 MG Oral 12/13/2014 [facility] [employer] Tablet [Abilify] 02:09:52 PM EST System 24 HR Nicotine 0.583 MG/HR 12/13/2014 [facility] Transdermal Patch 02:07:42 PM EST System Divalproex Sodium 500 MG [facility] Delayed Release Oral Tablet System Naprosyn [facility] System 24 HR quetiapine 50 MG [facility] Extended Release Oral Tablet System [Seroquel] Albuterol 0.1 MG/ACTUAT / Mo [facility] Ipratropium [place] 0.02 Sys tem MG/ACTUAT Metered Dose Inhaler Epinephrine [facility] System Ergocalciferol [facility] System montelukast 10 MG Oral Tablet [facility] Hydrochlorothiazide 25 MG Mo [facility] Oral Tablet System Amlodipine 10 MG Oral Tablet [facility] Escitalopram 10 MG Oral [facility] Tablet System gabapentin 600 MG Oral Tablet [facility] fluticasone furoate 0.2 [facility] MG/ACTUAT / vilanterol 0.025 System MG/ACTUAT Dry Powder Inhaler lamotrigine 100 MG Oral [facility] Tablet System Phenytoin sodium 100 MG [facility] Extended Release Oral Capsule System tizanidine 4 MG Oral Tablet [facility] pregabalin 75 MG Oral Capsule [facility] [Lyrica] System aripiprazole 20 MG Oral [facility] Tablet [Abilify] System Baclofen 10 MG Oral Tablet [facility] System Ibuprofen 600 MG Oral Tablet [facility] Cyclobenzaprine hydrochloride [facility] 10 MG Oral Tablet Medical Ce nter
[2020-07-25 10:36] VITALS: BMI 19.0
--- OUTSIDE RECORDS SUMMARY | 2020-07-28 04:34 | XMS ---
:1970 Author Organization [facility] Care Team Providers Name Role Phone Roland Call MD Unavailable Unavailable Lakshmi Gomez Unavailable Unavailable HHCCC, CNR9 Unavailable Unavailable CICI EMAD, EMAD Unavailable Unavailable Kadkhodajay-Taisha Yimi Unavailable Unavailabl e HHCCC, HRHC9 Unavailable Unavailable AKWUBA II ROCÍO, II Unavailable Unavailable Hu, Marilee Unavailable Unavailable ESPINOZA [...] is protected by Article 27-F of the [facility] Public Health law. If you continue you may haveaccess to information: Regarding HIV / AIDS; Provided by facilities licensed or operated by the [facility] Office of Mental Health; or Provided by the [facility] Office for People With Developmental Disabilities. If such information is present, then the following [facility] mandated warning applies: This information has been [...] law may result in a fine or prison sentence or both. A general authorization for the release of medical or other information is NOT sufficient authorization for further disclosure. Allergies and Adverse Reactions Type Description Substance Reaction Status Data Source(s) Drug allergy Bactrim Sulfamethoxazole hives Active eCW2 ( [place] [facility] Trimethoprim 80 MG Care) Oral Tablet [Bactrim] Drug allergy Latex Gloves Latex Gloves Anaphylaxis Active eCW2 ([facility]) Drug allergy Sulfa Sulfa HIVES Active eCW2 ([facility]) Drug allergy Penicillin Penicillin Anaphylaxis Active eCW2 ([facility]) Food allergy tomato tomato UNKNOWN [facility] Miscellaneous latex latex RASH [facility] Drug allergy trimethoprim trimethoprim [facility] Drug allergy sulfamethoxazole sulfamethoxazole [facility] Food allergy peanut peanut UNKNOWN [facility] Drug allergy Sulfa (Sulfonamide Sulfa (Sulfonamide [facility]) Antibiotics) Hospital Drug allergy Penicillins Penicillins [facility] Drug allergy Sulfonylureas Sulfonylureas [facility] Drug allergy Macrobid Macrobid Localized Active [facility] Health swelling of System skin Drug allergy Cipro Cipro Unknown Active [facility] Drug allergy Peanut Peanut [facility] Drug allergy SULFA SULFA [facility] Drug allergy Penicillin G Penicillin G [facility] Drug allergy Bactrim Bactrim [facility] Drug allergy Bactrim Sulfamethoxazole / hives Active eCW3 ([facility]) Drug allergy Sulfa Drug allergy HIVES Active eCW3 ([facility]) Drug allergy Latex Gloves Drug allergy Anaphylaxis Active eCW3 ([facility]) Drug allergy Penicillin Drug allergy Anaphylaxis Active eCW3 ([facility]) Drug allergy AZITHROMYCIN Drug allergy hives Active eCW3 ([facility]) Drug allergy Sulfa Drug allergy HIVES Active eCW3 ([facility]) Drug allergy Penicillin Drug allergy Anaphylaxis Active eCW3 ([facility]) Drug allergy AZITHROMYCIN Drug allergy hives Active eCW3 ([facility]) No Information No Information No Information eC W2 ([facility]) No Information No Information No Information eC W2 ([facility]) No Information No Information No Information eC W2 ([facility]) Drug allergy sulfur topical Sulfur Topical Unknown Active [facility] Drug allergy penicillin Penicillin Unknown Active [facility] Encounters Encounter Providers Location Date Indications Data Source(s ) Outpatient Attender: BRENNON Hand 06/18/2020 [facility] ESPINO[facility] 10:32:00 [facility] DANUTAAdmitter: EDT BRENNON ESPINOZA DANUTAReferrer: II AKWUBA II ROCÍO Outpatient Attender: [id number] [facility] 05/24/2020 [facility] ([facility] 11:38:24 AM [facility] EDT Collaborative) Patient admitted. Outpatient Attender: [id number] [facility] 04/04/2020 02:43:25 PM [facility] ([facility] EDT Collaborative) Patient admitted. Outpatient Attender: HRHC9 [facility] 04/04/2020 02:43:22 PM [facility] ([facility] EDT Collaborative) Patient admitted. Outpatient Attender: [id number] [facility] 01/11/2020 06:27:16 AM [facility] ([facility] EDT Collaborative) Patient admitted. Outpatient Attender: CNR9 [facility] 10/02/2019 03:48:16 PM [facility] ([facility] EST [facility]) Patient admitted. Outpatient Attender: HRHC9 [facility] 10/02/2019 03:48:13 PM [facility] ([facility]) Patient admitted. Outpatient 07/31/2019 12:05:52 PM EDT [facility] ([facility]) Patient admitted. Outpatient 07/31/2019 12:05:48 PM EDT [facility] ([facility]) Patient admitted. Outpatient Attender: RBENNON 07/12/2019 [facility] ESPINOZA 11:54:00 AM EDT Medical DANUTAAdmitter: Jose Roberto CORNELLUTA ESPINOZA WILLETTReferrer: NEFTALI LINDSAY Outpatient Attender: BRENNON 06/21/2019 [facility] Eliza nicole ESPINOZA 02:40:00 PM EDT Medical DANUTAAdmitter: [place] BRENNON ESPINOZA CORNELLUSC [facility] 05/29/2019 eCW3 ([facility] Care 12:00:00 AM EDT [facility] A28 - 05/29/2019 Care) 12:00:00 AM EDT Inpatient Attender: 5T-TE 05/26/2019 Post-ictal [facility] - Wally Fowlerstevenracheljoseph 10:09:00 PM EDT confusion Jeremyangelito GomezAttender: - 05/28/2019 Hos pital Marilee HuAdmitter: 05:46:00 PM EDT Lakshmi GomezConsultant : Yimi Jeter i Post-ictal confusion Patient discharged. Outpatient 03/21/2019 01:53:43 PM EDT [facility] ( [facility]) Patient admitted. Outpatient 03/21/2019 01:53:39 PM EDT [facility] ([facility]) Patient admitted. Outpatient 03/21/2019 01:53:28 PM EDT [facility] ([facility]) Patient admitted. Outpatient 03/21/2019 01:53:24 PM EDT [facility] ([facility]) Patient admitted. Outpatient 03/21/2019 01:52:34 PM EDT [facility] ([facility]) Patient admitted. Outpatient 03/21/2019 01:52:30 PM EDT [facility] ([facility]) Patient admitted. Emergency H 03/14/2019 09:20:00 PM EDT [facility] 03/14/2019 12:00:00 AM EDT - [facility] 02/12/2017 12:00:00 AM EDT Outpatient 03/08/2019 12:57:33 PM EDT [facility] ([facility]) Patient admitted. Outpatient 03/08/2019 12:57:29 PM EDT [facility] ([facility]) Patient admitted. Outpatient 03/06/2019 03:39:08 PM EDT [facility] ([facility]) Patient admitted. Outpatient 03/06/2019 03:39:02 PM EDT [facility] ( [facility]) Patient admitted. Outpatient 03/06/2019 03:36:07 PM EDT [facility] ([facility]) Patient admitted. Outpatient 03/06/2019 03:36:03 PM EDT [facility] ([facility]) Patient admitted. Outpatient [facility] 03/02/2019 eCW3 ([facility] A28 12:00:00 AM EDT [facility] - 03/02/2019 Care) 12:00:00 AM EDT [facility] 08/29/2018 eCW2 ([facility] [place] 12:00:00 AM EST [facility] Care) [facility] 08/25/2018 eCW2 ([facility] [place] 12:00:00 AM EDT [facility] Care) [facility] 08/25/2018 eCW2 ([facility] [place] 12:00:00 AM EDT [facility] Care) [facility] 08/25/2018 eCW2 ([facility] [place] 12:00:00 AM EDT [facility] Care) [facility] 08/14/2018 eCW2 ([facility] [place] 12:00:00 AM EDT [facility] Care) [facility] 08/14/2018 eCW2 ([facility] [place] 12:00:00 AM EDT [facility] 08/10/2018 eCW2 ([facility] [place] 12:00:00 AM EDT [facility] 08/02/2018 eCW2 ([facility] [place] 12:00:00 AM EDT [facility] 08/02/2018 eCW2 ([facility] [place] 12:00:00 AM EDT [facility] Care) [facility] 08/01/2018 eCW2 ([facility] [place] 12:00:00 AM EDT [facility] Care) [facility] 07/25/2018 eCW2 ([facility] [place] 12:00:00 AM EDT [facility] Care) [facility] 07/24/2018 eCW2 ([facility] [place] 12:00:00 AM EDT [facility] Care) [facility] 07/24/2018 eCW2 ([facility] [place] 12:00:00 AM EDT [place] [facility] Care) [facility] 07/12/2018 eCW2 ([facility] [place] 12:00:00 AM EDT [place] [facility] Care) [facility] 06/10/2018 eCW2 ([facility] [place] 12:00:00 AM EDT [facility] Care) [facility] 03/30/2018 eCW2 ([facility] [place] 12:00:00 AM EDT [facility] Care) [facility] 11/25/2017 eCW2 ([facility] [place] 12:00:00 AM EST [place] [facility] Care) [facility] 10/31/2017 eCW2 ([facility] [place] 12:00:00 AM EST [place] [facility] Care) [facility] 09/24/2017 eCW2 (Mike [facility] 12:00:00 AM EST [place] [facility] Care) [facility] 09/17/2017 eCW2 (Chalo [place] [facility] 12:00:00 AM EST [place] [facility] Care) [facility] 09/14/2017 eCW2 (Chalo Valencia [place] 12:00:00 AM EST [place] [facility] Care) Emergency Attender: 05/04/2017 SEIZURE [facility]ail Juan Jakub 12:25:00 PM EDT Hospit al - 05/04/2017 ARR-YONG 03:33:00 PM EDT SEIZURE ARR-YONG [facility] [place] Radhaju Vinson 02/14/2017 12:00: 00 eCW2 ([facility] AM EDT Health Care ) [facility] Radhaju Vinson 11/11/2016 12:00: 00 eCW2 ([facility] AM EST Health Care ) [facility] Quinterolyn Shell[facility]asia 06/07/2016 12:00: 00 eCW2 ([facility] AM EDT Health Care ) [facility] Quinteroju Valdesabatasia 05/21/2016 12:00: 00 eCW2 ([facility] AM EDT Health Care ) [facility] Radhaju Valdesabatasia 05/21/2016 12:00: 00 eCW2 ([facility] AM EDT Health Care ) [facility] Quinterolyn Shellabarnaun 05/14/2016 12:00: 00 eCW2 ([facility] AM EDT Health Care ) [facility] Radha Shellabatasia 05/12/2016 12:00: 00 eCW2 ([facility] AM EDT Health Care ) [facility] Radha Shellabarnaun 05/07/2016 12:00: 00 eCW2 ([facility] AM EDT Health Care ) [facility] Valdesabatasia 05/06/2016 12:00: 00 eCW2 ([facility] AM EDT Health Care ) Verito Dugann Shellabarnaun 04/23/2016 12:00: 00 eCW2 ([facility] AM EDT Health Care ) Verito Dugann Keishaabarger 04/20/2016 12:00: 00 eCW2 ([facility] AM EDT Health Care ) Verito Dugantimothy Valdesabarnaun 03/30/2016 12:00: 00 eCW2 ([facility] AM EDT Health Care ) Verito Dugantimothy Valdesabarnaun 03/23/2016 12:00: 00 eCW2 ([facility] AM EDT Health Care ) Verito Dugantimothy Valdesabatasia 03/23/2016 12:00: 00 eCW2 ([facility] AM EDT Health Care ) Verito Dugantimothy Valdesabatasia 03/23/2016 12:00: 00 eCW2 ([facility] AM EDT Health Care ) [place] Liz Dugantimothy Valdesabarnaun 03/23/2016 12:00: 00 eCW2 ([facility] AM EDT Health Care ) Verito Dugantimothy Valdesabatasia 03/16/2016 12:00: 00 eCW2 ([facility] AM EDT Health Care ) Verito Dugantimothy Valdesabarnaun 03/15/2016 12:00: 00 eCW2 ([facility] AM EDT Health Care ) [place] Liz Quinteroju Valdesabarnaun 08/15/2015 12:00: 00 eCW2 ([facility] AM EDT Health Care ) Verito Orteganjayashree Quinterolyn Shellabarnaun 08/11/2015 12:00: 00 eCW2 ([facility] AM EDT Health Care ) Verito Orteganjayashree Quinterolyn Shellabarnaun 04/10/2015 12:00: 00 eCW2 ([facility] AM EDT Health Care ) [place] Liz Orteganjayashree Quinteroju Valdesabatasia 02/22/2015 12:00: 00 eCW2 ([facility] AM EDT Health Care ) [place] Radha Shellabarger 02/22/2015 12:00:00 eCW2 ([facility] AM EDT Health Care ) Verito Orteganjayashree Dugann Shellabarger 01/07/2015 12:00: 00 eCW2 ([facility] AM EDT Health Care ) Verito Orteganjayashree Quinteroju Valdesabarger 12/31/2014 12:00: 00 eCW2 ([facility] AM EDT Health Care ) [facility] Radha Shellabarger 12/18/2014 12:00:00 eCW2 ([facility] AM EST Health Care ) [place] Liz Orteganjayashree Quinterolyn Shellabarger 12/11/2014 12:00: 00 eCW2 ([facility] AM EST Health Care ) [place] Liz Orteganjayashree Quinteroju Valdesabarnaun 12/10/2014 12:00: 00 eCW2 ([facility] AM EST Health Care ) [place] Liz Orteganjayashree Quinterolyn Shellabarnaun 11/29/2014 12:00: 00 eCW2 ([facility] AM EST Health Care ) [place] Liz Orteganjayashree Quinterolyn Shellabarnaun 07/29/2014 12:00: 00 eCW2 ([facility] AM EDT Health Care ) [place] Liz Orteganjayashree Quinterolyn Shellabarnaun 04/17/2014 12:00: 00 eCW2 ([facility] AM EDT Health Care ) [facility] Radha Shellabarger 04/17/2014 12:00:00 eCW2 ([facility] AM EDT Health Care ) [place] Liz Orteganjayashree Quinterolyn Shellabarnaun 05/29/2013 12:00: 00 eCW2 ([facility] AM EDT Health Care ) [place] Liz Orteganjayashree Quinterolyn Shellabarger 04/18/2013 12:00: 00 eCW2 ([facility] AM EDT Health Care ) [place] Liz [place] Radha Shellabarnaun 03/29/2013 12:00: 00 eCW2 ([facility] AM EDT Health Care ) Verito Orteganjayashree Dugantimothy Valdesabarnaun 03/16/2013 12:00: 00 eCW2 ([facility] AM EDT Health Care ) Verito Orteganjayashree Quinteroju Valdesabarnaun 03/13/2013 12:00: 00 eCW2 ([facility] AM EDT Health Care ) Verito Orteganjayashree Quinteroju Valdesabatasia 03/02/2013 12:00: 00 eCW2 ([facility] AM EDT Health Care ) [place] Liz Orteganjayashree Quinteroju Valdesabatasia 11/28/2012 12:00: 00 eCW2 ([facility] AM EST Health Care ) [place] Liz Orteganjayashree Quinteroju Valdesabatasia 11/28/2012 12:00: 00 eCW2 ([facility] AM EST Health Care ) [place] Liz Orteganjayashree Quinteroju Valdesabatasia 09/18/2012 12:00: 00 eCW2 ([facility] AM EST Health Care ) [place] Liz Orteganjayashree Quinteroju Valdesabatasia 09/08/2012 12:00: 00 eCW2 ([facility] AM EST Health Care ) [place] Liz Orteganjayashree Quinteroju Valdesabatasia 08/29/2012 12:00: 00 eCW2 ([facility] AM EST Health Care ) [place] Liz Orteganjayashree Quinteroju Valdesabatasia 06/01/2012 12:00: 00 eCW2 ([facility] AM EDT Health Care ) [place] Liz Uptonjayashree Quinteroju Valdesabatasia 05/29/2012 12:00: 00 eCW2 ([facility] AM EDT Health Care ) [place] Liz Orteganjayashree Quinterolyn Shellabarnaun 05/25/2012 12:00: 00 eCW2 ([facility] AM EDT Health Care ) [place] Liz Ortegankers Radhaju Valdesabarnaun 05/17/2012 12:00: 00 eCW2 ([facility] AM EDT Health Care ) [place] Liz [place] Radha Valdesabatasia 05/15/2012 12:00: 00 eCW2 ([facility] AM EDT Health Care ) [place] Liz Ortegankers Radha Valdesabatasia 05/11/2012 12:00: 00 eCW2 ([facility] AM EDT Health Care ) Ver[place] Dugann Shellab[place]un 05/11/2012 12:00: 00 eCW2 ([facility] AM EDT Health Care ) Verito Dugann Shellabarger 05/09/2012 12:00: 00 eCW2 ([facility] AM EDT Health Care ) Verito Orteganjayashree Dugann Keishaabarnaun 04/27/2012 12:00: 00 eCW2 ([facility] EDT Health Care ) Verito Orteganjayashree Dugann Shellabarnaun 04/21/2012 12:00: 00 eCW2 ([facility] EDT Health Care ) [place] Liz Orteganjayashree Dugann Shellabarnaun 04/20/2012 12:00: 00 eCW2 ([facility] EDT Health Care ) [facility] Radha Shellabarger 04/20/2012 12:00: 00 eCW2 ([facility] AM EDT Health Care ) [place] Liz Dugann Shellabarnaun 03/02/2012 12:00: 00 [facility] [place] Liz Orteganjayashree Dugantimothy Valdesabatasia 01/31/2012 12:00: 00 eCW2 ([facility] EDT Health Care ) [place] Liz Orteganjayashree Dugann Shellabatasia 01/25/2012 12:00: 00 eCW2 ([facility] AM EDT Health Care ) [place] Liz Orteganjayashree Quinterolyn Shellabarnaun 01/07/2012 12:00: 00 eCW2 ([facility] AM EDT Health Care ) [place] Liz Orteganjayashree Dugann Shellabarnaun 01/07/2012 12:00: 00 eCW2 ([facility] AM EDT Health Care ) [facility] Radha Shellabarger 01/06/2012 12:00: 00 eCW2 ([facility] AM EDT Health Care ) [place] Liz Orteganjayashree Quinteroju Valdesabatasia 12/31/2011 12:00: 00 eCW2 ([facility] AM EST Health Care ) [place] Liz Orteganjayashree Quinteroju Valdesabatasia 12/06/2011 12:00: 00 eCW2 ([facility] AM EST Health Care ) [place] Liz Orteganjayashree Quinteroju Valdesabatasia 11/29/2011 12:00: 00 eCW2 ([facility] AM EST Health Care ) [place] Liz Uptonjayashree Quinteroju Vinson 11/12/2011 12:00: 00 eCW2 ([facility] AM EST Health Care ) [place] Liz Orteganjayashree Quinteroju Valdesabatasia 11/03/2011 12:00: 00 eCW2 ([facility] AM EST Health Care ) [place] Liz Orteganjayashree Quinteroju Valdesabatasia 10/29/2011 12:00: 00 eCW2 ([facility] AM EST Health Care ) [place] Radhaju Vinson 10/19/2011 12:00: 00 eCW2 ([facility] AM EST Health Care ) [place] Liz Orteganjayashree Quinteroju Valdesabatasia 12/29/2010 12:00: 00 eCW2 ([facility] AM EST Health Care ) [place] Liz Uptonjayashree Quinteroju Valdesabatasia 09/21/2010 12:00: 00 eCW2 ([facility] AM EST Health Care ) [place] Radhaju Valdesabatasia 08/28/2010 12:00: 00 eCW2 ([facility] AM EDT Health Care ) [place] Liz Erik Radhaju Valdesabatasia 04/21/2010 12:00: 00 eCW2 ([facility] AM EDT Health Care ) [place] Radhaju Valdesabatasia 11/18/2009 12:00: 00 eCW2 ([facility] AM EST Health Care ) [place] Liz Erik Valdesabatasia 11/03/2009 12:00: 00 eCW2 ([facility] AM EST Health Care ) [place] Liz Erik Valdesabatasia 10/09/2009 12:00: 00 eCW2 ([facility] AM EST Health Care ) [facility] Radha Valdesabarnaun 10/07/2009 12:00: 00 eCW2 ([facility] AM EST Health Care ) [facility] Radha Valdesabarnaun 09/23/2009 12:00:00 eCW2 ([facility] EST Health Care ) [facility] Radha Valdesabarnaun 09/22/2009 12:00:00 eCW2 ([facility] EST Health Care ) [facility] Radha Valdesabarnaun 09/15/2009 12:00: 00 eCW2 ([facility] EST Health Care ) [facility] Radha Valdesabatasia 08/01/2009 12:00: 00 eCW2 ([facility] EDT Health Care ) [facility] Erik Valdesabarnaun 07/31/2009 12:00: 00 eCW2 ([facility] AM EDT Health Care ) [facility] Erik Valdesabarnaun 07/17/2009 12:00: 00 [facility] Erik Valdesabarnaun 05/21/2009 12:00: 00 [facility]CW2 [facility] Erik Valdesabarnaun 05/21/2009 12:00: 00 [facility]CW2 [facility] Erik Dugann Keishaabarnaun 05/14/2009 12:00: 00 eCW2 ([facility] EDT Health Care ) [facility] Erik Garcia Shellab[place]un 05/12/2009 12:00: 00 eCW2 [facility] Immunizations Vaccine Date Status Description Data Source(s) Tdap 04/04/2016 completed Tdap on: 04-Apr-2016 Site: [facility] l[facility] region structure (body structure) [facility] 12:00:00 AM EDT Lot #: [id number] H ealt System No Known Immunizations completed eCW2 ([facility]) No Known Immunizations completed eCW2 ([facility]) No Known Immunizations completed eCW2 ([facility]) No Known Immunizations completed eCW2 ([facility]) Medications Medication Brand Start Product Dose Route Administrative Pharmacy [facility] Indications Reaction Description Data Name Date Form [...] Ipratropi um- eCW3 -Albuterol 2020 {puff Albuterol ( dson 12:00: _as_n 20- [place] MCG/ACT 00 AM eeded MCG/ACT Health EST } Care) Ipratropium UNK .0 active Ipratropi um- eCW3 -Albuterol 2020 {puff Albuterol ( dson 12:00: _as_n 20- [place] MCG/ACT 00 AM eeded MCG/ACT Health EST } Care) Azithromyci Azithr 12/04/ active Azithro mycin eCW3 n 250 MG omycin 2020 250 MG ([facility] Oral Tablet 250 MG 12:00: Rive r 00 AM Health EST [facility]) Ensure - Ensure 237.0 active Ensure - eCW3 - 2020 {ml} ([facility] 12:00: [place] 00 AM Health EST Care) Ensure - Ensure 237.0 active Ensure - eCW3 - 2020 {ml} ([facility] 12:00: [place] 00 AM Health EST Care) lamotrigine Lamict 2.0 active Lamicta l 25 eCW3 25 MG Oral al 2018 {tabl MG ([facility]abel Tablet MG 12:00: ets} [place] [Lamictal] 00 AM [facility] Lamictal 25 EDT Care) MG lamotrigine Lamict 2.0 active Lamicta l 25 eCW3 25 MG Oral al 2018 {tabl MG ([facility]abel Tablet MG 12:00: ets} [place] [Lamictal] 00 AM [facility] Lamictal 25 EDT Care) MG Levetiracet Keppra 10 mL INTRAV complet [facility] am [id number] ENOUS ed Health MG/ML mg/mL 04:58: System Injectable intrav 23 PM Solution enous EDT [Keppra] soluti Keppra 100 on mg/mL intravenous solution Albuterol ipratr 0 RESPIR complet [facility] 0.833 MG/ML opium- 2019 ATORY ed [facility]alt [facility] / [place] 04:58: (INHAL System Ipratropium rol 05 PM ATION) [place] 0.5 EDT 0.167 MG/ML mg-2.5 Inhalant mg/3 [...] ORAL complet [facility] 2.5 MG Oral [place] 2018 {tab( ed Health Tablet 2.5 mg 04:57: s)} System amLODIPine oral 42 PM 2.5 mg oral tablet EDT tablet Ketotifen Ketoti .0 active Ketotifen eCW3 0.25 MG/ML fen 2019 {drop Fumarate ([facility] son Ophthalmic Fumara 12:00: _into 0.025 % R iver Solution te 00 AM _[facility] Ketotifen 0.025 EDT cted_ Care) Fumarate % eye} 0.025 % Ketotifen Ketoti .0 active Ketotifen eCW3 0.25 MG/ML fen 2018 {drop Fumarate ([facility] son Ophthalmic Fumara 12:00: _into 0.025 % R iver Solution te 00 AM _[facility] Ketotifen 0.025 EDT cted_ Care) Fumarate % [...] (INHAL System Ipratropium ium 40 AM ATION) Gleason 2.5 EST 0.167 MG/ML mg-0.5 Inhalant mg/3 [...] QUEtia ORAL complet [place] quetiapine pine 2016 {tab( ed Health 50 MG 50 mg [...] intensify this effect. Use care when operating [facility].This prescription cannot be refilled.This product contains acetamino [...] AM to affected ([facility] MG/ML Topical EDT [facility]) Furoate 0.1 % Prilosec 20 mg UNK 04/20/2012 1.0 active Pr ilosec 20 mg eCW3 12:00:00 AM {ca ([facility]abel EDT u [facility]} [facility]) Prilosec 20 mg UNK 04/20/2012 active 1 capsule eCW2 12:00:00 AM ([facility]) Prilosec 20 mg K 04/20/2012 1.0 active Pr ilosec 20 mg eCW3 12:00:00 AM {ca ([facility]) Benadryl Benadryl 01/03/2012 suspended 1 tablet eCW2 Allergy 25 MG Allergy 25 MG 12:00:00 AM ([facility]) 200 ACTUAT Ventolin HFA 10/19/2011 active 2 puffs eCW2 Albuterol 0.09 108 (90 Base) 12:00:00 AM ([facility]abel MG/ACTUAT MCG/ACT [facility] Metered Dose Health Inhaler Care) [Ventolin] Ventolin HFA 108 (90 Base) MCG/ACT montelukast 10 Singulair 10 10/19/2011 active 1 tablet in eCW2 MG Oral Tablet MG 12:00:00 AM the evening ([place] [Singulair] [facility] [address]) montelukast 10 Singulair 10 10/19/2011 1.0 active Singulair 10 eCW3 MG Oral Tablet MG 12:00:00 AM {ta MG ([place] [Singulair] [facility] Singulair 10 t_i [facility] MG n_t Care) he_ gisel ludin g} montelukast 10 Singulair 10 10/19/2011 1.0 active Singulair 10 eCW3 MG Oral Tablet MG 12:00:00 AM {ta MG ([place] [Singulair] [facility] Singulair 10 t_i Health MG n_t Care) he_ gisel ludin g} EpiPen 2-Quinn K 09/21/2010 active as d irected eCW2 0.3 MG/0.3ML 12:00:00 AM ([place] (1:1000) [facility]) EpiPen 2-Quinn K 09/21/2010 active EpiP en 2-Quinn eCW3 0.3 MG/0.3ML 12:00:00 AM 0.3 M G/0.3ML ([place] (1:1000) [facility] (1:1000) [facility]) EpiPen 2-Quinn UNK 09/21/2010 active EpiP en 2-Quinn eCW3 0.3 MG/0.3ML 12:00:00 AM 0.3 M G/0.3ML ([place] (1:1000) EST (1:1000) [facility]) Albuterol 0.21 Albuterol 07/31/2009 suspended 3 ml eCW2 MG/ML Inhalant Sulfate 0.63 12:00:00 AM ([place] Solution MG/3ML [facility] Albuterol Health Sulfate 0.63 Care) MG/3ML Hydrochlorothi Hydrochlorothi 07/17/2009 active 1 tablet eCW2 azide 25 MG azide 25 MG 12:00:00 AM ([place] Oral Tablet [facility]) Hydrochlorothi Hydrochlorothi 07/17/2009 1.0 active Hydrochlorothi eCW3 azide 25 MG azide 25 mg 12:00:00 AM {ta azide 25 mg ([place] Oral Tablet [facility] Hydrochlorothi t} Healt h azide 25 mg Care) Hydrochlorothi Hydrochlorothi 07/17/2009 1.0 active Hydrochlorothi eCW3 azide 25 MG azide 25 MG 12:00:00 AM {ta azide 25 MG ([place] Oral Tablet [facility] t} [facility]) gabapentin 600 gabapentin 600 0 ORA completed [facility] MG Oral Tablet mg oral tablet [facility] gabapentin 600 Syste m mg oral tablet Escitalopram escitalopram 1 ORA completed [facility] 10 MG Oral 10 mg oral {ta L Hea lth Tablet tablet b(s System escitalopram )} 10 mg oral tablet Naprosyn 0 ORA completed [facility] Amlodipine 10 amLODIPine 10 1 ORA completed [facility] MG Oral Tablet mg oral tablet {[facility] amLODIPine 10 b(s System mg oral tablet )} gabapentin 300 Gabapentin 300 active Gabapentin 300 eCW3 MG Oral MG MG ([facility] Gabapentin 300 Healt h MG Care) fluticasone [...] 10 MG Oral [place] Tablet t_a [facility] [yrte] s_n Care) ZyrTEC Allergy eed 10 MG ed} Baclofen 10 MG Baclofen 10 mg suspended 1 tablet with eCW2 Oral Tablet food or milk ([place] Baclofen 10 mg [facility]) Baclofen 10 MG baclofen 10 mg TAB 1 ORA completed [facility] Oral Tablet oral tablet LET {ta L H ealth baclofen 10 mg b(s Syste m oral tablet )} montelukast 10 montelukast 10 1 ORA completed [facility] MG Oral Tablet mg oral tablet {ta L Health montelukast 10 b(s Syste m mg oral tablet )} aripiprazole Abilify 20 mg TAB 1 ORA completed [facility] 20 MG Oral oral tablet LET {ta L He alth Tablet b(s System [Abilify] )} Abilify 20 mg oral tablet cetirizine ZyrTEC Allergy 1.0 active Zy rTEC Allergy eCW3 hydrochloride 10 MG {ta 10 MG ([facility] son 10 MG Oral ble [place] Tablet t_a [facility] [yrte] s_n Care) ZyrTEC Allergy eed 10 MG ed} Ergocalciferol ergocalciferol 500 ORA completed [facility] ergocalciferol 0 L Healt h {un System its } Unknown completed eCW2 Medications ([facility]) Phenytoin Phenytoin active Phenytoi n eCW3 sodium 100 MG Sodium Sodium (H udson Extended Extended 100 Extended 100 [place] Release Oral MG MG Health Capsule Care) Phenytoin Sodium Extended 100 MG Dilantin 100 UNK suspended 1 tab e CW2 mg ([facility]) gabapentin 300 Gabapentin 300 active Gabapentin 300 eCW3 MG Oral MG MG ([place] Capsule [place] Gabapentin 300 Healt h MG Care) 24 HR SEROquel XR 50 1 ORA completed [facility] quetiapine 50 mg oral {ta L Hea lth MG Extended tablet, b(s Syste m Release Oral extended )} Tablet release [Seroquel] SEROquel XR 50 mg oral tablet, extended release Levetiracetam Levetiracetam active Levetiracetam eCW3 500 MG Oral 500 MG 500 MG ([facility] Tablet [facility]) Epinephrine Epi EZ Pen 0 completed [facility] Epi EZ Pen [facility] System Levetiracetam Levetiracetam active Levetiracetam eCW3 500 MG Oral 500 MG 500 MG ([facility] Tablet [facility]) Albuterol Ipratropium-Al suspended 3 ml eCW2 0.833 MG/ML / buterol ( dson Ipratropium 0.5-2.5 (3) R iver Gleason 0.167 MG/3ML Heal th MG/ML Inhalant Care) Solution Ipratropium-Al buterol 0.5-2.5 (3) MG/3ML Divalproex Divalproex active Divalp roex eCW3 Sodium 250 MG Sodium 250 MG So dium 250 MG ([place] Delayed [place] Release Oral Health Tablet Care) Albuterol 0.1 Combivent AER 1 RES completed [facility] MG/ACTUAT / Respimat CFC TIEN {[facility] Ipratropium free 20 L ff( JESUS Syste m Gleason 0.02 mcg-100 s)} RY MG/ACTUAT mcg/inh (IN [...] MG active 1 capsule eCW2 MG Oral ([place] Capsule [place] [Lyrica] Health Lyrica 50 MG Care) tizanidine 4 tiZANidine 4 TAB 1 ORA completed [facility] MG Oral Tablet mg oral tablet LET {ta L Health tiZANidine 4 b(s System mg oral tablet )} Divalproex divalproex 1 ORA completed [facility] Sodium 500 MG sodium 500 mg {ta L Health Delayed oral delayed b(s Syst em Release Oral release tablet )} Tablet divalproex sodium 500 mg oral delayed release tablet Unknown completed eCW2 Medications ([facility]) pregabalin 75 Lyrica 75 mg CAP 1 ORA completed [facility] MG Oral oral capsule SUL {ca L Heal th Capsule E p(s System [Lyrica] )} Lyrica 75 mg oral capsule 200 ACTUAT Atrovent HFA suspended 2 puffs eCW2 Ipratropium 17 MCG/ACT (H udson Gleason 0.017 [place] MG/ACTUAT Health Metered Dose Care) Inhaler [Atrovent] Atrovent HFA 17 MCG/ACT Cyclobenzaprin cyclobenzaprin 1 completed [facility] e 10 mg [place] hydrochloride Tablet, Med ical 10 MG Oral Ordered By: Ce nter Tablet [place] Titsy cyclobenzaprin Katrina Rincon, e 10 mg FNPDirections: Tablet, 1 tablet oral Ordered By: three times a Vinny Titsy day PRN Katrina Rincon, pain-moderate FNPDirections: [...] as eCW2 10 MG 10 MG needed ([facility]) Divalproex Divalproex active Divalp roex eCW3 Sodium 250 MG Sodium 250 MG So dium 250 MG ([place] Delayed [place] Release Oral Health Tablet Care) Insurance Providers Payer name Policy type / Policy ID Covered Covered democrat's Policy Plan Coverage type democrat ID relationship to Connors Information connors ERIC [id number] SP [id number] MEDICARE ADV PLAN MEDICAID [id number] SP [id number] ERIC [id number] ERIC [id number] SP [id number] MEDICARE ADV PLAN [place] Commercial [id number] Medicare Medicare SISI Medicare [id number] Medicaid Medicaid [id number] Medicare Part Medicare [id number] 1 [id number] Medicare Part Medicare [id number] 1 [id number] B [facility] [id number] [id number] [facility] [id number] PT [id number] HOSPITAL MEDICAID [id number] PT [id number] [facility] [id number] [id number] [facility] [id number] PT [id number] [facility] [id number] 1 [id number] Problems, Conditions, and Diagnoses Code Display Name Description Problem Type Effective Data Dates Source(s) R92.8 Abnormal mammogram Abnormal mammogram Problem 0 eCW3 ([facility] 12:00:00 AM [facility] EST Care) F17.200 Smoking Smoking Problem 12/27/2019 eCW3 ([facility] 12:00:00 AM [place] [facility] EST Care) G40.909 Epilepsy Epilepsy, Problem 05/29/2019 eCW3 ([facility] unspecified, not 12:00:00 AM [facility] intractable, EDT Care) without status epilepticus Z90.49 Status post Status post Problem 05/29/2019 eCW3 ([place] cholecystectomy cholecystectomy 12:00:00 AM [facility] EDT Care) J30.2 Seasonal allergic Seasonal allergic Problem 03/02/2019 eCW3 ([place] reaction reaction 12:00:00 AM [place] [facility] EDT Care) G40.909 Seizure disorder Seizure disorder Problem 08/25/2018 eC W2 ([facility] 12:00:00 AM [facility] EDT Care) K21.9 Gastroesophageal Gastroesophageal Problem 07/24/2018 eC W3 ([facility] reflux disease, reflux disease, 12:00:00 AM [facility] [facility] esophagitis esophagitis EDT Care) presence not presence not specified specified M54.10 Radiculopathy Radiculopathy, site Problem 07/24/2018 eC W3 ([facility] unspecified 12:00:00 AM [facility] Care) M54.10 Radiculopathy Radiculopathy, site Problem 07/24/2018 eC W2 ([facility] unspecified 12:00:00 AM [facility] EDT Care) F17.200 Tobacco user Nicotine Problem 07/24/2018 eCW2 ([place] dependence, 12:00:00 AM [facility] unspecified, EDT Care) uncomplicated K21.9 Gastroesophageal Gastroesophageal Problem 07/24/2018 eC W2 ([place] reflux disease, reflux disease, 12:00:00 AM [facility] esophagitis esophagitis EDT Care) presence not presence not specified specified K58.8 Other irritable Other irritable Problem 09/17/2017 eCW3 ([place] bowel syndrome bowel syndrome 12:00:00 AM [facility] EST Care) K58.8 Other irritable Other irritable Problem 09/17/2017 eCW2 ([place] bowel syndrome bowel syndrome 12:00:00 AM [facility] EST Care) J44.9 COPD - Chronic COPD (chronic Problem 11/11/2016 eCW3 ([facility] obstructive obstructive 12:00:00 AM [facility] h pulmonary disease pulmonary disease) EST Care) I10 Essential Essential Problem 11/11/2016 eCW3 ([place] hypertension hypertension 12:00:00 AM [facility] EST Care) G62.9 Peripheral Peripheral Problem 11/11/2016 eCW3 ([place] polyneuropathy polyneuropathy 12:00:00 AM [facility] EST Care) I10 Essential Essential Problem 11/11/2016 eCW2 ([place] hypertension hypertension 12:00:00 AM [facility] EST Care) J44.9 COPD - Chronic COPD (chronic Problem 11/11/2016 eCW2 ([facility] obstructive [facility] Care) G62.9 Peripheral Peripheral Problem 11/11/2016 eCW2 ([facility] polyneuropathy polyneuropathy 12:00:00 AM [facility] EST Care) J44.1 Acute exacerbation Chronic obstructive Problem 05/06/20 16 eCW2 ([facility] of chronic pulmonary disease 12:00:00 AM [facility] obstructive airways with (acute) EDT Car e) disease exacerbation 345.90 Seizure disorder Seizure disorder Problem 02/22/2015 eC W2 ([place] 12:00:00 AM [facility] EDT Care) 719.46 Knee pain Knee Pain Problem eCW2 ([facility]) 729.2 Radiculopathy Radiculopathy Problem eCW2 ([facility]) 300.00 Anxiety disorder Anxiety disorder Problem eC W2 ([facility]) 724.5 Low back pain Low Back Pain Problem eCW2 ([facility]) 305.1 Tobacco abuse Tobacco Abuse Problem eCW2 ([facility]) 305.92 NONDEPENDENT OTHER Drug abuse, other, Problem eCW2 ([place] MIXED OR mixed or [facility] UNSPECIFIED DRUG unspecified, Care) ABUSE EPISODIC USE episodic 401.9 Hypertension HTN Problem eCW2 ([facility]) I10 Hypertension, Hypertension, Problem [facility] re accelerated accelerated [facility] Syste m member R56.9 New onset seizure New onset seizure Problem [facility] System member F16.921 Phencyclidine Phencyclidine Problem [facility] intoxication intoxication [facility] Sys tem delirium delirium member M79.642 Pain in left hand PAIN IN LEFT HAND Diagnosis 06/18/2020 [facility] 10:32:00 AM Medical EDT Center M79.641 Pain in right hand PAIN IN RIGHT HAND Diagnosis 0 [facility] 10:32:00 AM Medical EDT Center M25.512 Pain in left PAIN IN LEFT Diagnosis 06/18/2020 [facility] shoulder SHOULDER 10:32:00 AM Medical EDT Center M25.511 Pain in right PAIN IN RIGHT Diagnosis 06/18/2020 [facility] shoulder SHOULDER 10:32:00 AM Medical EDT Center M25.562 Pain in left knee PAIN IN LEFT KNEE Diagnosis 06/18/2020 [facility] 10:32:00 AM Medical EDT Center M25.561 Pain in right knee PAIN IN RIGHT KNEE Diagnosis 0 [facility] 10:32:00 AM Medical EDT Center M54.16 Radiculopathy, RADICULOPATHY, Diagnosis 06/18/2020 [facility] lumbar region LUMBAR REGION 10:32:00 AM Medical EDT Center M54.5 Low back pain LOW BACK PAIN Diagnosis 06/18/2020 [facility] 10:32:00 AM Medical EDT Center F39 Unspecified mood Mood disorder Diagnosis 08/20/2019 [facility] [affective] 10:32:01 AM [place] disorder T Hospital J45.909 Unspecified asthma, Asthma Diagnosis 08/20/2019 [facility] Hospital uncomplicated 10:32:01 AM [facility] Z76.5 Malingerer Malingering Diagnosis 08/20/2019 [facility] [conscious 10:32:01 AM [place] simulation] T Hospital F16.10 Hallucinogen abuse, PCP abuse Diagnosis 08/20/2019 [facility] Hospital uncomplicated 10:32:01 AM [facility] I10 Essential (primary) Hypertension Diagnosis 08/20/2019 [facility] hypertension 10:32:01 AM [facility] M54.2 Cervicalgia CERVICALGIA Diagnosis 07/12/2019 [place] [facility] 11:54:00 AM Medical EDT Center F20.9 Schizophrenia, Schizophrenia Diagnosis 05/27/2019 [facility] - ount unspecified 08:52:00 AM [facility] Post-ictal Post-ictal Diagnosis 05/27/2019 [facility] confusion confusion 08:52:00 AM [facility] 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 psychoactive Diagnosis 9 [facility] [facility] substance substance 08:52:00 AM [place] dependence, dependence, T Hospital uncomplicated uncomplicated F42.9 Obsessive-compulsiv Obsessive-compulsiv Diagnosis 019 [employer] [facility] e disorder, e disorder 08:52:00 [facility] F16.929 Hallucinogen use, Hallucinogen use Diagnosis 05/27/2019 [facility] Hospital unspecified with with intoxication 08:52:00 AM [place] intoxication, EDT Hospital unspecified G40.901 Epilepsy, Nonintractable Diagnosis 05/27/2019 [facility] Moun t unspecified, not epilepsy with 08:52:00 AM [place] [facility] intractable, with status epilepticus [facility] Hospital status epilepticus G40.919 Epilepsy, Breakthrough Diagnosis 05/27/2019 [facility] [facility] unspecified, seizure 08:52:00 AM [place] intractable, T Hospital without status epilepticus F31.9 Bipolar disorder, Bipolar disorder Diagnosis 05/27/2019 [facility] - [place] unspecified 08:52:00 AM [facility] R41.89 Other symptoms and Unresponsiveness Diagnosis 05/27/2019 [facility] Hospital signs involving 08:52:00 AM [place] cognitive functions EDT Hospi corona and awareness F05 Delirium due to Post-ictal Diagnosis 05/27/2019 S - [place] nt known physiological confusion 12:00:00 AM [facility] condition EDT Hospital SEIZURES SEIZURES Diagnosis 05/26/2019 [facility]09[facility] Y99.9 Unspecified UNSPECIFIED Diagnosis 03/14/2019 [facility] external cause EXTERNAL CAUSE 09:20:00 PM Medic al status STATUS EDT Center Y92.[address] Diagnosis 03/14/2019 [facility] or not applicable OR NOT APPLICABLE 09:20:00 PM Medical EDT Center Y93.89 Activity, other ACTIVITY, OTHER Diagnosis 03/14/2019 [facility] Tellez specified SPECIFIED 09:20:00 PM Medical EDT Center [...] Center I10 Essential (primary) I10 Diagnosis 05/04/2017 [place] hypertension 12:25:00 PM Hospital EDT J44.9 Chronic obstructive J44.9 Diagnosis 05/04/2017 [place] pulmonary disease, 12:25:00 PM Hospi [place] unspecified EDT F16.129 Hallucinogen abuse F16.129 Diagnosis 05/04/2017 [place] with intoxication, 12:25:00 PM Hospi [place] unspecified EDT G40.909 Epilepsy, G40.909 Diagnosis 05/04/2017 [place] unspecified, not 12:25:00 PM Hospita l intractable, EDT without status epilepticus [id number] Seizure disorder Breakthrough Diagnosis [facility] mas[facility]re (disorder) seizure Health System [id number] Seizure disorder Breakthrough [facility] 11:10:24 AM Health System EDT [id number] Unresponsive Unresponsiveness Diagnosis 05/27/2019 [facility] masoodre (finding) 11:09:46 AM Health System EDT [id number] Postseizure Post-ictal Diagnosis 05/27/2019 [facility] confusion confusion 11:09:34 AM Health System (disorder) EDT Surgeries/Procedures Procedure Description Date Indications Data Source(s) Electroencephalogram 05/28/2019 [facility] 11:07:00 AM EDT System - 05/28/2019 11:07:00 AM EDT Electroencephalogram 05/27/2019 [facility] 10:07:00 PM EDT System - 05/27/2019 10:07:00 PM EDT Drug Abuse Panel 9, Serum 05/27/2019 [facility]-crowd 02:10:00 PM EDT System - 05/27/2019 02:10:00 PM EDT as per pmd Phenytoin Level, Serum 05/26/2019 Health system 11:46:00 PM EDT - System 05/26/2019 11:46:00 PM EDT Electrocardiogram 12 Lead 05/26/2019 [facility] Health 11:59:00 AM EDT - System 05/26/2019 11:59:00 AM EDT Electrocardiogram 12 Lead [facility]30[facility] 08[facility]56[facility]00 AM EST - System 10/30/2018 08:56:00 AM EST Salicylate Level, Serum 10/29/2018 [facility] Health 07:00:00 PM EST - System 10/29/2018 07:00:00 PM EST Acetaminophen Level, Serum 10/29/2018 [facility] c-crowd 07:00:00 PM EST - System 10/29/2018 07:00:00 PM EST MRI Brain without contrast [facility] 08:35[facility]00 AM EST - System 09/28/2018 08:35:00 AM EST Electroencephalogram 09/27/2018 [facility] 12:06:00 PM EST - System 09/27/2018 12:06:00 PM EST Electrocardiogram 12 Lead 09/26/2018 [facility] 06:45:00 PM EST - System 09/26/2018 06:45:00 PM EST [facility] 08/02/2018 e CW2 ([facility] (community health) visit, 12:00:00 AM EDT [facility]) established patient; a medically-necessary, [id number]-[id number] encounter (one-on-one) between an established patient and a community health practitioner during which time one or more community health services are rendered and includes a typical bundle of medicare-covered services that would be furnished geotechnicial properties technician to a patient receiving a community health visit THERAPEUTIC PROPHYLACTIC/DX 08/02/2018 eCW2 ([facility] Injection, ketorolac 08/02/2018 eCW2 ([facility] tromethamine, per 15 mg 12:00:00 AM EDT [facility]) Electrocardiogram 12 Lead 06/07/2018 [facility] 06:23:00 AM EDT - System 06/07/2018 06:23:00 AM EDT Electrocardiogram 12 Lead 03/02/2018 [facility] 03:17:00 PM EDT - System 03/02/2018 03:17:00 PM EDT XR Chest Single AP view 09/23/2017 [facility] 09:29:06 PM EST - System 09/23/2017 09:29:06 PM EST Electrocardiogram 12 Lead [facility] PM EST - System 09/23/2017 08:30:00 PM EST Electrocardiogram 12 Lead 06/17/2017 [facility] 09[facility]14:00 PM EDT - System 06/17/2017 09:14:00 PM EDT Electroencephalogram 11/26/2016 [facility] c-crowd 11:40:42 AM EST - System 11/26/2016 11:40:42 AM EST Ceruloplasmin, Serum 11/25/2016 [facility] 08:45:00 PM EST - System 11/25/2016 08:45:00 PM EST Electrocardiogram 12 Lead 11/25/2016 [facility] 07[facility]02:00 PM EST - System 11/25/2016 07:02:00 PM EST Blood Gas, Whole Blood 11/25/2016 [facility] c-crowd 04:30:00 PM EST - System 11/25/2016 04:30:00 PM EST Phenytoin Level, Serum 08/12/2016 Health system 05:43:00 PM EDT - System 08/12/2016 05:43:00 PM EDT Creatine Kinase MB, Serum 08/07/2016 [facility] 04:14:00 AM EDT - System 08/07/2016 04:14:00 AM EDT Electrocardiogram 12 Lead 08/05/2016 [facility] 12:25:00 PM EDT - System 08/05/2016 12:25:00 PM EDT Venipuncture 05/18/2016 [facility] 06:08:21 PM EDT - System 05/18/2016 06:08:21 PM EDT Gabapentin Level, Serum 04/03/2016 [facility] 11:50:00 PM EDT - System 04/03/2016 11:50:00 PM EDT Gabapentin Level, Serum 04/03/2016 [facility] 10:42:54 PM EDT - System 04/03/2016 10:42:54 PM EDT Urine Toxicology Screen 04/03/2016 [facility] 01:43:00 PM EDT - System 04/03/2016 01:43:00 PM EDT Electroencephalogram 02/25/2016 [facility] 01:45:00 PM EDT - System 02/25/2016 01:45:00 PM EDT Electrocardiogram 12 Lead 02/25/2016 [facility] 09:16:00 AM EDT - System 02/25/2016 09:16:00 AM EDT Creatine Kinase, Serum 02/25/2016 Health system 07:32:00 AM EDT - System 02/25/2016 07:32:00 AM EDT Venipuncture 02/23/2016 [facility] 04:00:02 PM EDT - System 02/23/2016 04:00:02 PM EDT Hepatic Function Panel 02/23/2016 Health system 02:36:11 PM EDT - System 02/23/2016 02:36:11 PM EDT Electrocardiogram 12 Lead 12/11/2014 [facility] 11:05:00 AM EST - System 12/11/2014 11:05:00 AM EST No Known procedures No Known eCW2 ([facility]) No Known procedures No Known eCW2 ([facility]) No Known procedures No Known eCW2 ([facility] procedures [facility]) Results ID Date Data Source [id number] 07/24/2020 03:15:00 PM EDT [facility] Name Value Range Interpretation Description Data Sup porting Code Source(s) Document(s ) SARS [facility] coronavirus 2 RNA This lab was ordered by [facility] and reported by [facility]. ID Date Data Source [id number] 05/27/2019 02:10:00 PM EDT [facility] Name [...] results) System Plasma ID Date Data Source [id number] 05/27/2019 02:10:00 PM EDT [facility] Name Value Range Interpretation Description Data Sup porting Code Source(s) Document(s ) Amphetamine Negative Negative Normal (applies Amphetamine [facility] [Mass/volume] ng/ml to non-numeric Level, Urine Health in Urine results) System Cut-off = 1000 ng/mL Barbiturates Negative Negative Normal (applies Barbiturate [facility] [Mass/volume] in ng/ml to non-numeric Screen, Urine [facility] System Urine by Screen results) method Cut-off [...] [Mass/volume] in ng/mL to non-numeric Level, Urine [facility]) Cut-off = [...] test if needed. ID Date Data Source [id number] 05/27/2019 09:35:00 AM EDT [facility]ian [facility] System Name Value Range Interpretation Description Data Sup porting Code Source(s) Document(s ) Magnesium 2.2 1.5 - Above high normal Magnesium, [facility] [Mass/volume {mEq/L} 2.2 [facility] ] in Serum mEq/L or Plasma ID Date Data Source [id number] 05/27/2019 09:00:00 AM EDT Nomi [facility]man [facility] System Name Value Range Interpretation Description Data Sup porting Code Source(s) Document(s ) Creatine 947 30 - 135 Above high normal Creatine [facility] kinase.MB {IU/L} IU/L Kinase, [facility] [Mass/volum e] in Serum or Plasma ID Date Data Source [id number] 05/27/2019 03:48:00 AM EDT [facility] CT head without IV contrastCLINICAL INFO RMATION: Seizure.TECHNIQUE: Contiguous axial 5 mm sections were obtained through the head. RADIATION DOSE: Automatic exposure control or low dose technique with adjus tment of the dose based on patient size was utilized. [facility] m[facility].FINDINGS: Correlation is [...] Supporting Document(s ) ID Date Data Source [id number] 05/26/2019 11:43:00 PM EDT [facility] System Name Value Range Interpretation Description Data Sup porting Code Source(s) Document(s ) Acetylsalicylate < 4.0 2.0 - Normal (applies Salicylate [facility] [Mass/volume] in 30.0 to non-numeric Level, Serum [facility]alt [facility] Serum or Plasma mg/dl results) System ID Date Data Source [id number] 05/26/2019 11:43:00 PM EDT [facility] Name Value Range Interpretation Description Data Sup porting Code Source(s) Document(s ) Acetaminophen < 4 10 - 30 Below low normal Acetaminophen Reynaldo josy [Mass/volume] in ug/ml Level, Serum [facility] Serum or Plasma System ID Date Data Source [id number] 05/26/2019 11:43:00 PM EDT [facility] [...] 10^3 uL System ID Date Data Source [id number] 05/26/2019 11:43:00 PM EDT N[facility] System Name Value Range Interpretation Description Data Source(s ) Supporting Code Document(s ) Alcohol < 9.9 Normal (applies to Alcohol Ethyl, [facility] Ethyl, non-numeric Blood Health System Blood results) None Detected ID Date Data Source [id number] 05/26/2019 11:43:00 PM EDT [facility] Yehuda [facility] System Name Value Range Interpretation [...] urine test abnormalities ID Date Data Source [id number] 05/26/2019 11:43:00 PM EDT [facility] Name Value Range Interpretation Description Data Sup porting Code Source(s) Document(s ) Troponin I 0.00 0.00 - Normal (applies Troponin I [facility] Quantitative - ng/mL 0.04 to non-numeric Quantitative - Healt h MV Only ng/mL results) MV Only System ID Date Data Source [id number] 10/29/2018 06:19:00 PM EST [facility] [...] 10^3 uL System ID Date Data Source [id number] 10/29/2018 06:19:00 PM EST [facility] [...] quantitative testing recommened. ID Date Data Source [id number] 10/29/2018 06:19:00 PM LORE [facility] System Name Value Range Interpretation Description Data Sup porting Code Source(s) Document(s ) Valproate 0.1 "." Normal (applies Valproic Acid [facility] [Mass/volume ug/ml ug/ml to non-numeric Level, Serum Health Sy stem ] in Serum results) or Plasma Therapeutic 50 - 100Toxic >100 ug/mL ID Date Data Source [id number] 10/29/2018 06:19:00 PM [facility] System Name Value Range [...] urine test abnormalities ID Date Data Source [id number] 10/29/2018 06:19:00 PM EST [facility]idamian [facility]man [facility] System Name Value Range Interpretation Description Data Sup porting Code Source(s) Document(s ) Phenytoin 0.0 10.0 - Below low normal Phenytoin [facility] [Mass/volume ug/ml 20.0 Level, [facility] ] in Serum ug/ml or Plasma ID Date Data Source [id number] 10/29/2018 06:19:00 PM EST [facility] Name Value Range Interpretation Description Data Sup porting Code Source(s) Document(s ) Alcohol NON Normal (applies Alcohol Ethyl, [facility] Ethyl, DETECTED to non-numeric Blood Health System Blood None results) Detected ID Date Data Source [id number] 09/28/2018 06:00:00 AM EST [facility]th [...] 10^3 uL System ID Date Data Source [id number] 09/28/2018 06:00:00 AM EST [facility] [...] isoenzymes [Enzymatic IU/L (applies to Phosphatase, [facility] System activity/volume] in non-numeric Serum Serum or Plasma by results) Heat stability Bilirubin.total 0.6 mg/dl 0.2 - 1.3 Normal Bilirubin, [facility] [Mass/volume] in Serum mg/dl (applies to Serum Total Hea lt System or Plasma non-numeric results) Direct Bilirubin [...] Alanine [facility] aminotransferase IU/L (applies to Aminotransferas [facility] [Enzymatic non-numeric e, Serum activity/volume] [...] urine test abnormalities ID Date Data Source [id number] 09/27/2018 06:00:00 AM EST Nomi carrillo System Name Value Range Interpretation [...] 10^3 uL System ID Date Data Source [id number] 09/27/2018 06:00:00 AM EST [facility] [...] urine test abnormalities ID Date Data Source [id number] 09/27/2018 06:00:00 AM EST Nomi carrillo System Name Value Range Interpretation Description Data Sup porting Code Source(s) Document(s ) Magnesium 2.0 1.5 - Normal (applies Magnesium, [facility] [Mass/volume {mEq/L} 2.2 to non-numeric [facility] Syste m ] in Serum mEq/L results) or Plasma ID Date Data Source [id number] 09/27/2018 06:00:00 AM EST [facility] Name Value Range Interpretation Description Data Sup porting Code Source(s) Document(s ) Valproate 6.0 "." Normal (applies Valproic Acid [facility] [Mass/volume ug/ml ug/ml to non-numeric Level, Serum Health Sy stem ] in Serum results) or Plasma Therapeutic 50 - 100Toxic >100 ug/mL ID Date Data Source [id number] 09/26/2018 03:52:00 PM EST [facility] Name Value Range Interpretation Description Data Sup porting Code Source(s) Document(s ) Color CLEAR Yellow Normal (applies Color [facility] to non-numeric Health results) System Appearance of YELLOW Clear Normal (applies Urine [facility] Urine to non-numeric Appearance Health results) System Specific 1.020 1.001 - Normal (applies Urine Specific [facility] gravity of 1.035 to non-numeric [facility] Urine results) System pH.. 6.5 4.6 [...] non-numeric System results) ID Date Data Source [id number] 09/26/2018 03:52:00 PM EST [facility] al[facility] [...] 10^3 uL System ID Date Data Source [id number] 09/26/2018 03:52:00 PM EST [facility] [...] 11/27/2017 at 5:34 PMCalled to:DHEERAJ CRAWLEY/Britney Name:SEVERO DUMASGUEVARAReadallyn by:Jamilah CRAWLEY/FELICITAS09/26/2018 / 5:33 PM Glucose, VB 76 mg/dL 65 - 110 Normal (applies Glucose, VB [facility] mg/dL to non-numeric Health System results) Potassium, VB 3.7 mmol/L 3.6 - 5.0 Normal (applies Potassium, VB Reynaldo josy mmol/L to non-numeric Health System results) Sodium, [...] Health System results) ID Date Data Source [id number] 09/26/2018 03:52:00 PM EST [facility] Name Value Range Interpretation Description Data Sup porting Code Source(s) Document(s ) Phenytoin 0.0 10.0 - Below low normal Phenytoin [facility] [Mass/volume ug/ml 20.0 Level, [facility] ] in Serum ug/ml or Plasma ID Date Data Source [id number] 09/26/2018 03:52:00 PM EST [facility] Name Value Range Interpretation Description Data Sup porting Code Source(s) Document(s ) Alcohol NON-DETECTE Normal (applies Alcohol Ethyl, [facility] Ethyl, D None to non-numeric Blood [facility] Blood Detected results) ID Date Data Source [id number] 09/26/2018 03:52:00 PM EST [facility] Name Value Range Interpretation Description Data Sup porting Code Source(s) Document(s ) Acetaminophen < 4 10 - 30 Below low normal Acetaminophen Reynaldo josy [Mass/volume] in ug/ml Level, Serum [facility] Serum or Plasma System ID Date Data Source [id number] 09/26/2018 03:52:00 PM EST [facility] Name Value Range Interpretation Description Data Sup porting Code Source(s) Document(s ) Troponin I 0.01 0.00 - Normal (applies Troponin I [facility] Quantitative - ng/mL 0.04 to non-numeric Quantitative - Healt h MV Only ng/mL results) MV Only System ID Date Data Source [id number] 09/26/2018 03:52:00 PM EST [facility] Name Value Range Interpretation Description Data Sup porting Code Source(s) Document(s ) Acetylsalicylate < 4.0 2.0 - Normal (applies Salicylate [facility] [Mass/volume] in 30.0 to non-numeric Level, Serum [facility]alt [facility] Serum or Plasma mg/dl results) System ID Date Data Source [id number] 09/26/2018 03:52:00 PM EST [facility] Name Value Range Interpretation Description Data Sup porting Code Source(s) Document(s ) Lactic 2.43 0.50 - Above upper panic Lactic Acid, [facility] Acid, {mEq/L} 2.00 limits Plasma *[facility] Plasma mEq/L JEREMY ONLY* *[facility]EM[facility] ONLY* Result Reporting|Telephone|DHEERAJ CRAWLEY/FELICITAS|1 11/27/2017 at 5:49 PMCalled to:DHEERAJ CRAWLEY/Britney Name:SEVERO Rocha by:Jamilah CRAWLEY/FELICITAS09/26/2018 / 5:48 PM ID Date Data Source [id number] 09/26/2018 03:52:00 PM EST [facility] Name [...] test if needed. ID Date Data Source [id number] 09/26/2018 03:52:00 PM EST [facility] Name Value Range Interpretation Description Data Sup porting Code Source(s) Document(s ) Creatine 279 30 - 135 Above high normal Creatine [facility] kinase.MB {IU/L} IU/L Kinase, [facility] [Mass/volum e] in Serum or Plasma ID Date Data Source [id number] 08/29/2018 10:20:00 AM [facility] -0500 Name Value Range Interpretation Description Data Sup porting Code Source(s) Document(s ) Valproate 50-120 Below low normal <content [facility] [Mass/volume] styleCode="Bold Rosalinda in Serum or ">Valproic Acid Medical Plasma </content>< Center 10.0 UG/ML L<content styleCode="Ital ics"> (50-120 UG/ML)</content > ID Date Data Source [id number] 08/29/2018 09:50:00 AM [facility] 0500 Name Value Range Interpretation Description Data [...] (0-0.1 KCUMM)</content > ID Date Data Source [id number] 08/29/2018 09:50:00 AM EST [facility] 0-0500 Name Value Range Interpretation Code Description Data Suha rce(s) Supporting Document(s ) UNK > 60 <content [facility] styleCode="Bold"> Medical Cent er EGFR </content>114 GFR<content styleCode="Italic s"> (> 60 GFR)</content> ID Date Data Source [id number] 08/29/2018 09:50:00 AM EST [facility] Name Value Range Interpretation Description Data Sup porting Code Source(s) Document(s ) Chloride 98-107 <content [facility] [Moles/volume] styleCode="Shilpa Lugos in Serum or d">Chloride Medical Plasma </content>105 Center MEQ/L<content styleCode="Xiao lics"> (98-107 MEQ/L)</conten t> Sodium 137-145 <content [facility] [Moles/volume] styleCode="Shilpa Lugos in Serum or d">Sodium Medical Plasma </content>140 [...] t> UNK > 60 <content [facility] styleCode="Shilpa Rosalinda d">EGFR Medical </content>114 Center GFR<content styleCode="Xiao lics"> (> 60 GFR)</content> Creatinine 0.5-1.3 <content [facility] [Mass/volume] styleCode="Shilpa Rosalinda in Serum or d">Creatinine Medical Plasma </content>0.7 Center MG/DL<content styleCode="Xiao lics"> (0.5-1.3 MG/DL)</conten t> ID Date Data Source [id number] 06/07/2018 05:31:00 AM EDT [facility] Name Value Range Interpretation Description Data Sup porting Code Source(s) Document(s ) Valproate 20.8 "." Normal (applies Valproic Acid [facility] [Mass/volume ug/ml ug/ml to non-numeric Level, Serum Health Sy stem ] in Serum results) or Plasma Therapeutic 50 - 100Toxic >100 ug/mL ID Date Data Source [id number] 06/07/2018 05:31:00 AM EDT [facility] System Name Value Range Interpretation Description Data Sup porting Code Source(s) Document(s ) Phenytoin 1.3 10.0 - Below low normal Phenytoin [facility] [Mass/volume ug/ml 20.0 Level, [facility] ] in Serum ug/ml or Plasma ID Date Data Source [id number] 06/07/2018 04:50:00 AM EDT [facility] System Name Value Range Interpretation Description Data Sup porting Code Source(s) Document(s ) Color YELLOW Yellow Normal (applies Color [facility] to non-numeric Health results) System Appearance of CLEAR Clear Normal (applies Urine [facility] Urine to non-numeric Appearance Health results) System Specific 1.010 1.001 - Normal (applies Urine Specific [facility] gravity of 1.035 to non-numeric [facility] Urine results) System pH.. 7.0 4.6 [...] non-numeric System results) ID Date Data Source [id number] 06/07/2018 04:50:00 AM EDT [facility] System Name Value Range Interpretation [...] 10^3 uL System ID Date Data Source [id number] 06/07/2018 04:50:00 AM EDT [facility] System Name [...] urine test abnormalities ID Date Data Source [id number] 06/07/2018 04:50:00 AM EDT [facility] System Name Value Range Interpretation Description Data Source(s ) Supporting Code Document(s ) Alcohol < 9.9 Normal (applies to Alcohol Ethyl, [facility] Ethyl, non-numeric Blood Health System Blood results) None Detected ID Date Data Source [id number] 06/07/2018 04:50:00 AM EDT [facility] Name Value Range Interpretation Description Data Sup porting Code Source(s) Document(s ) Lactic 2.54 0.70 - Above high normal Lactic Acid, [facility] Acid, {mEq/L} 2.10 Plasma *[facility] Plasma mEq/L [facility] ONLY* *[facility] ONLY* ID Date Data Source [id number] 06/07/2018 04:50:00 AM EDT [facility] [...] Abnormal Cocaine [facility] metabolites.other ng/ml (applies to [facility] Health Sy stem [Mass/volume] in non-numeric Screen, [...] test if needed. ID Date Data Source [id number] 06/07/2018 04:28:00 AM EDT [facility] [...] Health System results) ID Date Data Source [id number] 03/02/2018 03:22:00 PM EDT [facility] Name Value Range Interpretation Description Data Sup porting Code Source(s) Document(s ) Cancelled [facility] Test Urine, check Test Urine, Health Visibility Accession Visibility System Color [id number] Color Complete Complete ID Date Data Source [id number] 03/02/2018 01:03:00 PM EDT [facility] Name Value Range Interpretation [...] [facility] [Moles/volume] in mmol/L to non-numeric Serum [facility] Serum or Plasma results) Carbon dioxide, 25.0 22.0 - Normal (applies CO2, Serum [facility] total [Moles/volume] mmol/L 30.0 to non-numeric [facility] System in Serum or Plasma mmol/L results) Total Protein 6.2 mg/dl 6.3 - 8.2 Below low Total Protein [facility] mg/dl normal Health System Glucose 70 mg/dL 65 - 105 Normal (applies Glucose, Serum [facility] [Mass/volume] in mg/dL to non-numeric [facility] Serum or Plasma results) Urea nitrogen 16 mg/dl 7 - 18 Normal (applies Blood Urea [facility] [Mass/volume] in mg/dl to non-numeric Nitrogen, [facility] Serum or Plasma results) Serum Creatinine 0.90 mg/dl 0.70 - Normal (applies Creatinine, [facility] [Mass/volume] in 1.20 mg/dl to non-numeric Serum [facility] Serum or Plasma results) Alkaline phosphatase 55 {IU/L} 38 - 126 Normal (applies Alkaline [facility] isoenzymes IU/L to non-numeric Phosphatase, [facility] [Enzymatic results) Serum activity/volume] in Serum or Plasma by Heat stability Bilirubin.total 0.4 mg/dl 0.2 - 1.3 Normal (applies Bilirubin, [facility] [Mass/volume] in mg/dl to non-numeric Serum Total [facility] Serum or Plasma results) Direct Bilirubin 0.2 mg/dl 0.0 - 0.4 Normal (applies Direct [facility] mg/dl to non-numeric Bilirubin [facility] results) Aspartate 22 {IU/L} 5 - 40 Normal (applies Aspartate [facility] aminotransferase IU/L to non-numeric Transaminase, [facility] [Enzymatic results) Serum activity/volume] in Serum or [...] [facility] aminotransferase IU/L to non-numeric Aminotransfera [facility] [Enzymatic results) se, Serum activity/volume] in [...] (applies GFR [facility] filtration rate/1.73 to non-numeric [facility] System sq M.predicted results) [Volume Rate/Area] in [...] urine test abnormalities ID Date Data Source [id number] 03/02/2018 01:03:00 PM EDT [facility] System Name Value Range Interpretation Description Data Sup porting Code Source(s) Document(s ) Creatine 290 30 - 135 Above high normal Creatine [facility] kinase.MB {IU/L} IU/L Kinase, [facility] [Mass/volum e] in Serum or Plasma ID Date Data Source [id number] 03/02/2018 11:32:00 AM EDSaeed Blackman alth System Name Value [...] should be ordered. ID Date Data Source [id number] 03/02/2018 11:32:00 AM EDSaeed [facility] alth System Name Value [...] 10^3 uL System ID Date Data Source [id number] 03/02/2018 11:32:00 AM EDT N[facility] System Name Value Range Interpretation Description Data Sup porting Code Source(s) Document(s ) Valproate 30.0 "." Normal (applies Valproic Acid [facility] [Mass/volume ug/ml ug/ml to non-numeric Level, Serum Health Sy stem ] in Serum results) or Plasma Therapeutic 50 - 100Toxic >100 ug/mL ID Date Data Source [id number] 03/02/2018 11:32:00 AM EDT [facility] System Name Value [...] Plasma results) request another sample from nurse jennif e Rork Chloride 104 mmol/L 98 - 107 Normal (applies Chloride, [facility] [Moles/volume] in mmol/L to non-numeric Serum Health System Serum or Plasma results) request another sample from nurse jael Kendrick Carbon dioxide, 27.0 mmol/L 22.0 - 30.0 [...] {IU/L} 5 - 40 Normal ([facility]lies [facility] IU/L to non-numeric Transaminase, [facility] [Enzymatic results) Serum activity/volume] in Serum or Plasma by With P-5'-P request another sample from nurse jeal Kendrick Albumin 4.1 {gm/dl} 3.9 - 5.0 [...] 16 {IU/L} 7 - [address] [facility] aminotransferase IU/L (applies to Aminotransferase, [facility] System [Enzymatic non-numeric Serum activity/volume] in results) Serum or Plasma request another sample from nurse jael Kendrick Calcium 9.6 mg/dl 8.4 - 10.2 Normal (applies [facility]cium, [facility] [Mass/volume] in mg/dl to non-numeric Total [facility] System Serum or Plasma results) request another sample from nurse jael Kendrick A/G Ratio 1.58 Normal (applies to A/G Ratio [facility] Health non-numeric System results) Urate 4.8 mg/dl 2.5 - Normal (applies to Uric Acid, [facility] Health [Mass/volume] 7.5 non-numeric Serum System in Serum or mg/dl results) Plasma request another sample from nurse jael Kendrick Anion gap in 14.00 mmol/L 8.00 - 12.00 Above high Anion Gap [facility] Serum or mmol/L normal System Plasma request another sample from nurse jael Kendrick Glomerular filtration 52.70 Normal (applies to GFR [facility] c-crowd rate/1.73 sq M.predicted non-numeric results) System [Volume [...] urine test abnormalities ID Date Data Source [id number] 03/02/2018 11:32:00 AM EDT [facility] Name Value Range Interpretation Description Data Sup porting Code Source(s) Document(s ) Phenytoin 0.7 10.0 - Below low normal Phenytoin [facility] [Mass/volume ug/ml 20.0 Level, [facility] ] in Serum ug/ml or Plasma ID Date Data Source [id number] 03/02/2018 11:32:00 AM EDT [facility] alth [...] test if needed. ID Date Data Source [id number] 09/24/2017 04:39:00 PM EST [facility] [employer] alth System BLOOD ALREADY IN LAB Name Value Range Interpretation Description Data Sup porting Code Source(s) Document(s ) Phenytoin 1.1 10.0 - Below low normal Phenytoin [facility] [Mass/volume ug/ml 20.0 Level, [facility] ] in Serum ug/ml or Plasma ID Date Data Source [id number] 09/24/2017 11:21:00 AM EST [employer] System Name Value Range Interpretation Description Data [...] quantitative testing recommened. ID Date Data Source [id number] 09/24/2017 10:25:55 AM EST [facility] [employer] [facility] System Name Value Range Interpretation Description Data Sup porting Code Source(s) Document(s ) Valproate 17.2 "." Normal (applies Valproic Acid [facility] [Mass/volume ug/ml ug/ml to non-numeric Level, Serum Health Sy stem ] in Serum results) or Plasma called dr nguyễn to clarifyTherapeutic 50 - 1 00Toxic >100 ug/mL ID Date Data Source [id number] 09/24/2017 09:02:00 AM EST [facility] System Name Value Range Interpretation Description Data Sup porting Code Source(s) Document(s ) Valproate 36.0 "." Normal (applies Valproic Acid [facility] [Mass/volume ug/ml ug/ml to non-numeric Level, Serum Health Sy stem ] in Serum results) or Plasma Therapeutic 50 - 100Toxic >100 ug/mL ID Date Data Source [id number] 09/23/2017 08:27:00 PM EST [facility]uda [facility]th [...] 10^3 uL System ID Date Data Source [id number] 09/23/2017 08:27:00 PM EST [facility] alth [...] urine test abnormalities ID Date Data Source [id number] 09/23/2017 08:27:00 PM EST [facility] System Name Value Range Interpretation Description Data Sup porting Code Source(s) Document(s ) Troponin I 0.01 0.00 - Normal (applies Troponin I [facility] Quantitative - ng/mL 0.04 to non-numeric Quantitative - Healt h MV Only ng/mL results) MV Only System ID Date Data Source [id number] 06/17/2017 10:25:00 PM EDT [facility] alth [...] mmol/L results) System ID Date Data Source [id number] 06/17/2017 10:25:00 PM EDT [facility] System Name Value Range Interpretation Description Data Sup porting Code Source(s) Document(s ) Magnesium 1.7 1.7 - Normal (applies Magnesium, [facility] [Mass/volume {mEq/L} 2.2 to non-numeric Serum Health Syste m ] in Serum mEq/L results) or Plasma ID Date Data Source [id number] 06/17/2017 08:54:00 PM EDT [facility] System Name [...] 10^3 uL System ID Date Data Source [id number] 06/17/2017 08:54:00 PM EDT [facility] Name Value Range Interpretation Description Data Sup porting Code Source(s) Document(s ) HCG NEGATIVE Negative Normal (applies HCG [facility] Qualitative mIU/ml to non-numeric Qualitative Health results) System Default Normal RangesNegative <5Indeterm inate 5-25(Please repeat in 2 days.)Positive >25 ID Date Data Source [id number] 06/17/2017 08:54:00 PM EDT [facility] System Name [...] Plasma mmol/L System ID Date Data Source [id number] 06/17/2017 08:54:00 PM EDT [facility] System Name Value Range Interpretation Description Data Sup porting Code Source(s) Document(s ) Magnesium 4.3 1.7 - Above upper panic Magnesium, [facility] [Mass/volume {mEq/L} 2.2 limits Serum [facility] System ] in Serum mEq/L or Plasma Result Reporting|Telephone|dheeraj lugo| at 10:12 PMCalled to:dheeraj Muro Name:Pedro by:dheeraj lugo 06/17/2017 / 10:11 PM ID Date Data Source [id number] 11/29/2016 06:00:00 AM EST [facility] System Name Value Range Interpretation Description Data Sup porting Code Source(s) Document(s ) Valproate 46.7 "." Normal (applies Valproic Acid [facility] [Mass/volume ug/ml ug/ml to non-numeric Level, Serum Health Sy stem ] in Serum results) or Plasma Therapeutic 50 - 100Toxic >100 ug/mL ID Date Data Source [id number] 11/29/2016 06:00:00 AM EST [facility] [...] Plasma mmol/L System ID Date Data Source [id number] 11/28/2016 06:00:00 AM EST [facility] [...] by Automated count ID Date Data Source [id number] 11/28/2016 06:00:00 AM EST [facility] System Name Value Range Interpretation Description Data Sup porting Code Source(s) Document(s ) Thyrotropin 0.622 0.380 - Normal (applies Thyroid [facility] [Mass/volume] {mIU/mL} 6.150 to non-numeric [facility] in Serum or mIU/mL results) Hormone, System Plasma Serum ID Date Data Source [id number] 11/28/2016 06:00:00 AM EST [facility] [...] Plasma mmol/L System ID Date Data Source [id number] 11/28/2016 06:00:00 AM LORE [facility] System Name Value Range Interpretation [...] Serum or Plasma results) <200 mg/dL = [id number] - 239 md/dL = Borderline>240 mg/dL = [...] VLDL 7 Normal (applies to VLDL, Serum [facility] [Mass/volume] in non-numeric System Serum or Plasma results) CHD Risk 2.45 2.40 - Normal (applies to CHD Risk [facility] 5.30 non-numeric System results) ID Date Data Source [id number] 11/28/2016 06:00:00 AM LORE [facility]man [facility] System Name Value Range Interpretation Code Description Data Suha rce(s) Supporting Document(s ) HbA1C 4.9 % 4.6 - 6.2 % Normal (applies to HbA1C [facility] non-numeric [facility] results) ID Date Data Source [id number] 11/27/2016 04:39:00 AM EST [facility]io[facility] [...] 10^3 uL System ID Date Data Source [id number] 11/27/2016 04:39:00 AM EST [facility] [...] Plasma mmol/L System ID Date Data Source [id number] 11/27/2016 04:39:00 AM EST [facility] System Name Value Range Interpretation Description Data Sup porting Code Source(s) Document(s ) Magnesium 2.0 1.7 - Normal (applies Magnesium, [facility] [Mass/volume {mEq/L} 2.2 to non-numeric [facility] Syste m ] in Serum mEq/L results) or Plasma ID Date Data Source [id number] 11/27/2016 04:33:00 AM EST [facility] System Name [...] Venous mmol/L System blood TCO2 Cancelled TCO2 [facility] System O2 Saturation Cancelled O2 Saturation [facility] System Sodium, WB 139 mmol/L 137 - [...] results) System Plasma ID Date Data Source [id number] 11/26/2016 03:51:00 PM EST [facility] [...] urine test abnormalities ID Date Data Source [id number] 11/26/2016 03:51:00 PM EST [facility] System Name Value Range Interpretation Description Data Sup porting Code Source(s) Document(s ) Creatine 381 30 - 135 Above high normal Creatine [facility] kinase.MB {IU/L} IU/L Kinase, [facility] [Mass/volum e] in Serum or Plasma ID Date Data Source [id number] 11/26/2016 05:43:00 AM EST [facility] System Name Value Range Interpretation [...] results) System Plasma ID Date Data Source [id number] 11/26/2016 05:10:00 AM EST [facility] [...] 10^3 uL System ID Date Data Source [id number] 11/26/2016 05:10:00 AM EST [facility] [...] urine test abnormalities ID Date Data Source [id number] 11/26/2016 05:10:00 AM LORE car[place] System Name Value Range Interpretation Description Data Sup porting Code Source(s) Document(s ) Magnesium 1.7 1.7 - Normal (applies Magnesium, [facility] [Mass/volume {mEq/L} 2.2 to non-numeric [facility] Syste m ] in Serum mEq/L results) or Plasma ID Date Data Source [id number] 11/26/2016 05:10:00 AM EST Nomi carrillo System Name Value Range Interpretation Description Data Sup porting Code Source(s) Document(s ) Valproate 47.1 "." Normal (applies Valproic Acid [facility] [Mass/volume ug/ml ug/ml to non-numeric Level, Serum Health Sy stem ] in Serum results) or Plasma Therapeutic 50 - 100Toxic >100 ug/mL ID Date Data Source [id number] 11/25/2016 10:35:00 PM EST Nomi carrillo System Name Value Range Interpretation [...] or results) Plasma ID Date Data Source [id number] 11/25/2016 10:01:00 PM EST [facility] [...] limits Calcium System ID Date Data Source [id number] 11/25/2016 07:53:00 PM EST [facility] System Name Value Range Interpretation Description Data Sup porting Code Source(s) Document(s ) Copper Cancelled Copper, Serum [facility] [Mass/vol specimen was Health System ume] in drawn in the Serum or wrong Plasma tube.spoke to nurse po. ID Date Data Source [id number] 11/25/2016 07:53:00 PM EST [facility] System Name Value Range Interpretation Description Data Sup porting Code Source(s) Document(s ) Creatine 341 30 - 135 Above high normal Creatine [facility] kinase.MB {IU/L} IU/L Kinase, [facility] [Mass/volum e] in Serum or Plasma ID Date Data Source [id number] 11/25/2016 07:31:00 PM EST [facility] [...] results) System Plasma ID Date Data Source [id number] 11/25/2016 06:48:00 PM EST [facility] System Name Value Range Interpretation Description Data Sup porting Code Source(s) Document(s ) Bacteria NO GROWTH Culture [facility] identified in Bacteria [facility] Syst em Blood by Aer[facility] culture ID Date Data Source [id number] 11/25/2016 06:48:00 PM EST [facility] System Name Value Range Interpretation Description Data Sup porting Code Source(s) Document(s ) Bacteria NO GROWTH Culture [facility] identified in Bacteria [facility] Syst em Blood by Aerobe culture ID Date Data Source [id number] 11/25/2016 06:01:00 PM EST [facility] System Name Value Range Interpretation Description Data Sup porting Code Source(s) Document(s ) Valproate 38.5 "." Normal (applies Valproic Acid [facility] [Mass/volume ug/ml ug/ml to non-numeric Level, Serum Health Sy stem ] in Serum results) or Plasma Therapeutic 50 - 100Toxic >100 ug/mL ID Date Data Source [id number] 11/25/2016 03:46:00 PM EST [facility] System Name Value Range Interpretation Description Data Sup porting Code Source(s) Document(s ) Color YELLOW Yellow Normal (applies Color [facility] to non-numeric Health results) System Appearance of SL CLOUDY Clear Normal (applies Urine [facility] Urine to non-numeric [facility] results) System Specific 1.020 1.001 - Normal (applies Urine Specific [facility] gravity of 1.035 to non-numeric [facility] Urine results) System pH.. 6.0 4.6 [...] non-numeric System results) ID Date Data Source [id number] 11/25/2016 03:46:00 PM EST [facility] [...] 10^3 uL System ID Date Data Source [id number] 11/25/2016 03:46:00 PM EST [facility] System Name Value Range Interpretation Description Data Sup porting Code Source(s) Document(s ) HCG NEGATIVE Negative Normal (applies HCG [facility] Qualitative mIU/ml to non-numeric Qualitative Health results) System Default Normal RangesNegative <5Indeterm inate 5-25(Please repeat in 2 days.)Positive >25 ID Date Data Source [id number] 11/25/2016 03:46:00 PM EST [facility] [...] urine test abnormalities ID Date Data Source [id number] 11/25/2016 03:46:00 PM EST Nomi [facility]man [facility] System Name Value Range Interpretation Description Data Sup porting Code Source(s) Document(s ) Phenytoin < 0.50 10.0 - Below low normal Phenytoin [facility] [Mass/volume 20.0 Level, [facility] ] in Serum ug/ml or Plasma ID Date Data Source [id number] 11/25/2016 03:46:00 PM EST [facility] System Name Value Range Interpretation Description Data Sup porting Code Source(s) Document(s ) Magnesium 2.4 1.7 - Above high normal Magnesium, [facility] [Mass/volume {mEq/L} 2.2 [facility] ] in Serum mEq/L or Plasma ID Date Data Source [id number] 11/25/2016 03:46:00 PM EST [facility] [...] [facility] [Mass/volume] in to non-numeric Level, Urine [facility]) Cut-off = [...] test if needed. ID Date Data Source [id number] 08/13/2016 06:00:00 AM EDT [facility] System Name Value Range Interpretation Description Data Sup porting Code Source(s) Document(s ) Leukocytes Cancelled WBC Count [facility] [#/volume] in [facility] Unspecified sample, System specimen by please Automated count resubmit.No tified Jenny at 07:49am. Erythrocytes Cancelled RBC Count [facility] [#/volume] in [facility] Blood by sample, System Automated count please [...] Jenny at 07:49am. ID Date Data Source [id number] 08/13/2016 06:00:00 AM EDT [facility] System Name [...] urine test abnormalities ID Date Data Source [id number] 08/13/2016 06:00:00 AM EDT Nomi carrillo System Name Value Range Interpretation Description Data Sup porting Code Source(s) Document(s ) Magnesium 1.7 1.7 - Normal (applies Magnesium, [facility] [Mass/volume {mEq/L} 2.2 to non-numeric [facility] Syste m ] in Serum mEq/L results) or Plasma ID Date Data Source [id number] 08/13/2016 06:00:00 AM EDSaeed [facility] System Name Value Range Interpretation Description Data Sup porting Code Source(s) Document(s ) Creatine 269 30 - 135 Above high normal Creatine [facility] kinase.MB {IU/L} IU/L Kinase, [facility] [Mass/volum e] in Serum or Plasma ID Date Data Source [id number] 08/12/2016 07:17:00 PM EDSaeed [facility] System [...] urine test abnormalities ID Date Data Source [id number] 08/12/2016 07:17:00 PM EDT Nomi carrillo System Name Value Range Interpretation Description Data Sup porting Code Source(s) Document(s ) Magnesium 1.8 1.7 - Normal (applies Magnesium, [facility] [Mass/volume {mEq/L} 2.2 to non-numeric [facility] m ] in Serum mEq/L results) or Plasma ID Date Data Source [id number] 08/12/2016 07:17:00 PM EDT Nomi [facility]man [facility] System Name Value Range Interpretation Description Data Sup porting Code Source(s) Document(s ) Creatine 317 30 - 135 Above high normal Creatine [facility] kinase.MB {IU/L} IU/L Kinase, [facility] [Mass/volum e] in Serum or Plasma ID Date Data Source [id number] 08/12/2016 01:19:00 PM EDT [facility] Name Value Range Interpretation Description Data Sup porting Code Source(s) Document(s ) Color YELLOW Yellow Normal (applies Color [facility] to non-numeric Health results) System Appearance of CLEAR Clear Normal (applies Urine [facility] Urine to non-numeric [facility] results) System Specific > 1.030 1.001 - Normal (applies Urine Specific [facility] gravity of 1.035 to non-numeric [facility] Urine results) System pH.. 5.5 4.6 [...] Health results) System ID Date Data Source [id number] 08/12/2016 12:57:00 PM EDT [facility] System Name Value Range Interpretation Description Data Sup porting Code Source(s) Document(s ) aPTT in Blood 27.3 23.9 - Normal (applies Activated [facility] by {Second 30.6 to non-numeric Partial Health Coagulation s} Seconds results) Thromboplastin System assay Time ID Date Data Source [id number] 08/12/2016 12:57:00 PM EDT [facility] [...] Heart = 3.0-4.5 ID Date Data Source [id number] 08/12/2016 12:57:00 PM EDT [facility] [...] System Automated count ID Date Data Source [id number] 08/12/2016 12:57:00 PM EDT [facility] [...] urine test abnormalities ID Date Data Source [id number] 08/12/2016 12:57:00 PM EDT [facility] System Name Value Range Interpretation Description Data Sup porting Code Source(s) Document(s ) Phenytoin < 0.50 10.0 - Below low normal Phenytoin [facility] [Mass/volume 20.0 Level, [facility] ] in Serum ug/ml or Plasma ID Date Data Source [id number] 08/12/2016 12:57:00 PM EDT [facility] System Name Value Range Interpretation Description Data Sup porting Code Source(s) Document(s ) Troponin I 0.00 0.00 - Normal (applies Troponin I [facility] Quantitative ng/ml 0.04 to non-numeric Quantitative Health ng/ml results) System ID Date Data Source [id number] 08/12/2016 12:57:00 PM EDT [facility] [...] test if needed. ID Date Data Source [id number] 08/07/2016 04:25:00 AM EDT [facility] System Name Value Range Interpretation Description Data Sup porting Code Source(s) Document(s ) Deprecated Micro Normal (applies Aerobic [facility] Bacteria Result to non-numeric Culture, Urine Health identified in Final results) System Urine by Culture Aer[facility] Reading culture Note::< 10,000 CFU/ML ID Date Data Source [id number] 08/07/2016 04:14:00 AM EDT [facility] [...] [facility] phosphatase {IU/L} 126 to non-numeric Phosphatase, [facility] isoenzymes IU/L results) Serum System [Enzymatic activity/volume] [...] urine test abnormalities ID Date Data Source [id number] 08/07/2016 04:14:00 AM EDT Nomi Blackman alth System Name Value Range Interpretation Description Data Sup porting Code Source(s) Document(s ) Magnesium 1.8 1.7 - Normal (applies Magnesium, [facility] [Mass/volume {mEq/L} 2.2 to non-numeric [facility] Syste m ] in Serum mEq/L results) or Plasma ID Date Data Source [id number] 08/07/2016 04:14:00 AM EDT Nomi Blackman alth [...] Health results) System ID Date Data Source [id number] 08/07/2016 04:14:00 AM EDT Nomi Blackman alth [...] System Automated count ID Date Data Source [id number] 08/07/2016 04:14:00 AM EDT [facility] System Name Value Range Interpretation Description Data Sup porting Code Source(s) Document(s ) Valproate 59.0 "." Normal (applies Valproic Acid [facility] [Mass/volume ug/ml ug/ml to non-numeric Level, Serum Health Sy stem ] in Serum results) or Plasma Therapeutic 50 - 100Toxic >100 ug/mL ID Date Data Source [id number] 08/06/2016 04:14:00 PM EDT [facility] [...] or results) Plasma ID Date Data Source [id number] 08/06/2016 12:32:00 PM EDT [facility] System Name Value Range Interpretation Description Data Sup porting Code Source(s) Document(s ) Amphetamine Negative Negative Normal (applies Amphetamine [facility] [Mass/volume] ng/ml to non-numeric Level, Urine Health in Urine results) System Cut-off = 1000 ng/mL Barbiturates Negative Negative Normal (applies Barbiturate [facility] [Mass/volume] in ng/ml to non-numeric Screen, Urine [facility] System Urine by Screen results) method Cut-off [...] [facility] [Mass/volume] in to non-numeric Level, Urine [facility] System Urine results) Cut-off = 300 ng/mL [...] test if needed. ID Date Data Source [id number] 08/06/2016 06:25:00 AM EDT [facility] System Name [...] results) System Plasma ID Date Data Source [id number] 08/06/2016 06:00:00 AM EDT [facility] [...] System Automated count ID Date Data Source [id number] 08/06/2016 06:00:00 AM EDT [facility] [...] [facility] phosphatase {IU/L} 126 to non-numeric Phosphatase, [facility] isoenzymes IU/L results) Serum System [Enzymatic activity/volume] [...] urine test abnormalities ID Date Data Source [id number] 08/06/2016 06:00:00 AM EDT Nomi Blackman alth System Name Value Range Interpretation Description Data Sup porting Code Source(s) Document(s ) Lactic 0.98 0.70 - Normal (applies Lactic Acid, [facility] Acid, {mEq/L} 2.10 to non-numeric Plasma *[facility] Syst em Plasma mEq/L results) JEREMY ONLY* *[facility] ONLY* ID Date Data Source [id number] 08/06/2016 06:00:00 AM EDT Nomi Blackman alth System Name Value Range Interpretation Description Data Sup porting Code Source(s) Document(s ) Creatine 318 30 - 135 Above high normal Creatine [facility] kinase.MB {IU/L} IU/L Kinase, [facility] [Mass/volum e] in Serum or Plasma ID Date Data Source [id number] 08/05/2016 03:15:00 PM EDT Nomi Blackman alth [...] results) System Plasma ID Date Data Source [id number] 08/05/2016 10:44:00 AM EDT [facility] System Name Value Range Interpretation Description Data Sup porting Code Source(s) Document(s ) Color YELLOW Yellow Normal (applies Color [facility] to non-numeric Health results) System Appearance of CLEAR Clear Normal (applies Urine [facility] Urine to non-numeric [facility] results) System Specific 1.030 Normal (applies Urine Specific [facility] gravity of to non-numeric [facility] Urine results) System pH.. 5.5 4.6 [...] Health results) System ID Date Data Source [id number] 08/05/2016 10:44:00 AM EDT [facility] System Name Value Range Interpretation Description Data Sup porting Code Source(s) Document(s ) aPTT in Blood 26.8 23.9 - Normal (applies Activated [facility] by {Second 30.6 to non-numeric Partial Health Coagulation s} Seconds results) Thromboplastin System assay Time ID Date Data Source [id number] 08/05/2016 10:44:00 AM [facility] Name Value Range Interpretation [...] Heart = 3.0-4.5 ID Date Data Source [id number] 08/05/2016 10:44:00 AM EDT [facility] System Name Value Range Interpretation [...] System Automated count ID Date Data Source [id number] 08/05/2016 10:44:00 AM EDT [facility] System Name Value Range Interpretation Description Data Sup porting Code Source(s) Document(s ) HCG NEGATIVE Negative Normal (applies HCG [facility] Qualitative mIU/ml to non-numeric Qualitative Health results) System Default Normal RangesNegative <5Indeterm inate 5-25(Please repeat in 2 days.)Positive >25 ID Date Data Source [id number] 08/05/2016 10:44:00 AM EDT [facility] System Name Value Range Interpretation Description Data Sup porting Code Source(s) Document(s ) Valproate < 2.00 "." Normal (applies Valproic Acid [facility] [Mass/volume ug/ml to non-numeric Level, Serum Health Sy stem ] in Serum results) or Plasma Therapeutic 50 - 100Toxic >100 ug/mL ID Date Data Source [id number] 08/05/2016 10:44:00 AM ROSEMARY carrillo System Name Value Range [...] urine test abnormalities ID Date Data Source [id number] 08/05/2016 10:44:00 AM EDT [facility] System Name Value Range Interpretation Description Data Sup porting Code Source(s) Document(s ) Alcohol NON-DETECTE Normal (applies Alcohol Ethyl, [facility] Ethyl, D None to non-numeric Blood [facility] System Blood Detected results) ID Date Data Source [id number] 08/05/2016 10:44:00 AM EDT [facility] System Name Value Range Interpretation Description Data Sup porting Code Source(s) Document(s ) Acetaminophen < 1 10 - 30 Below low normal Acetaminophen Reynaldo josy [Mass/volume] in ug/ml Level, Serum Health Serum or Plasma System ID Date Data Source [id number] 08/05/2016 10:44:00 AM EDT [facility] System Name Value Range Interpretation Description Data Sup porting Code Source(s) Document(s ) Acetylsalicylate < 5 2.0 - Normal (applies Salicylate [facility] [Mass/volume] in 30.0 to non-numeric Level, Serum Healt h Serum or Plasma mg/dl results) System ID Date Data Source [id number] 08/05/2016 10:44:00 AM EDT [facility] [...] test if needed. ID Date Data Source [id number] 08/05/2016 10:44:00 AM EDT [facility] System Name Value Range Interpretation Description Data Sup porting Code Source(s) Document(s ) Creatine 412 30 - 135 Above high normal Creatine [facility] kinase.MB {IU/L} IU/L Kinase, [facility] [Mass/volum e] in Serum or Plasma ID Date Data Source [id number] 05/18/2016 02:02:00 PM EDT [facility] System Name Value Range Interpretation Description Data Sup porting Code Source(s) Document(s ) Valproate 56.3 "." Normal (applies Valproic Acid [facility] [Mass/volume ug/ml ug/ml to non-numeric Level, Serum Health Sy stem ] in Serum results) or Plasma Therapeutic 50 - 100Toxic >100 ug/mL ID Date Data Source [id number] 05/18/2016 02:02:00 PM EDT [facility] System Name [...] Health mg/dl System ID Date Data Source [id number] 04/03/2016 10:41:00 PM EDT [facility] System Name Value Range Interpretation Description Data Sup porting Code Source(s) Document(s ) Valproate 54.4 "." Normal (applies Valproic Acid [facility] [Mass/volume ug/ml ug/ml to non-numeric Level, Serum Health Sy stem ] in Serum results) or Plasma Therapeutic 50 - 100Toxic >100 ug/mL ID Date Data Source [id number] 04/03/2016 01:07:00 PM EDT [facility] [...] System Automated count ID Date Data Source [id number] 04/03/2016 01:07:00 PM EDT [facility] System Name [...] quantitative testing recommened. ID Date Data Source [id number] 04/03/2016 01:07:00 PM EDT [facility] System Name Value Range Interpretation Description Data Sup porting Code Source(s) Document(s ) Valproate 77.8 "." Normal (applies Valproic Acid [facility] [Mass/volume ug/ml ug/ml to non-numeric Level, Serum Health Sy stem ] in Serum results) or Plasma Therapeutic 50 - 100Toxic >100 ug/mL ID Date Data Source [id number] 04/03/2016 01:07:00 PM EDT Nomi carrillo System Name Value [...] mg/dl results) System ID Date Data Source [id number] 04/03/2016 01:07:00 PM EDT Nomi Blackman alth System Name Value Range Interpretation Description Data Sup porting Code Source(s) Document(s ) Alcohol none Normal (applies Alcohol Ethyl, [facility] Ethyl, detected to non-numeric Blood Health System Blood None results) Detected ID Date Data Source [id number] 03/10/2016 11:17:14 AM EDT Nomi Blackman alth System Name Value Range Interpretation Description Data Sup porting Code Source(s) Document(s ) Erythrocyte 10 0 - 20 Normal (applies Sedimentation [facility] sedimentation {mmlhr} mmlhr to non-numeric Rate, Health rate by 2H results) Erythrocyte System Westergren method ID Date Data Source [id number] 03/10/2016 11:17:14 AM EDT [facility] [...] System Automated count ID Date Data Source [id number] 03/10/2016 11:17:14 AM EDT [facility] System Name Value Range Interpretation Description Data Source(s ) Supporting Code Document(s ) T4 Free 0.92 0.71 - Normal (applies to T4 Free [facility] ng/ml 1.85 non-numeric Health System ng/ml results) ID Date Data Source [id number] 03/10/2016 11:17:14 AM EDT [facility] System Name Value Range Interpretation Description Data Sup porting Code Source(s) Document(s ) Thyrotropin 0.835 0.380 - Normal (applies Thyroid [facility] [Mass/volume] {mIU/mL} 6.150 to non-numeric [facility] in Serum or mIU/mL results) Hormone, System Plasma Serum ID Date Data Source [id number] 03/10/2016 11:17:14 AM EDT [facility]ioore Y[facility]uda al[facility] System Name Value Range Interpretation Code Description Data Suha rce(s) Supporting Document(s ) HbA1C 5.0 % 4.6 - 6.2 % Normal (applies to HbA1C [facility] non-numeric Health System results) ID Date Data Source [id number] 03/10/2016 11:17:14 AM EDT [facility] Name Value Range Interpretation Description Data Sup porting Code Source(s) Document(s ) Creatine 145 30 - 135 Above high normal Creatine [facility] kinase.MB {IU/L} IU/L Kinase, [facility] [Mass/volum e] in Serum or Plasma ID Date Data Source [id number] 03/09/2016 03:57:00 PM EDT [facility] System Name Value Range Interpretation Description Data Sup porting Code Source(s) Document(s ) C4 25 mg/dl 16 - 47 Normal (applies C4 Complement, [facility] Complemen mg/dl to non-numeric [facility] t, Serum results) Test Performed at:[facility] [place], [place] Arun Cooper M.D. ID Date Data Source [id number] 03/09/2016 03:57:00 PM EDT [facility] System Name Value Range Interpretation Description Data Sup porting Code Source(s) Document(s ) Immunoglobulin E 393 <iw=619 Above high Immunoglobulin E Reynaldo josy Level, Serum kU/L kU/L normal Level, Serum [facility] System Test Performed at:[facility] [employer] [place], [place] Arun Cooper M.D. ID Date Data Source [id number] 03/09/2016 03:57:00 PM EDT [facility] System Name Value Range Interpretation Description Data Sup porting Code Source(s) Document(s ) ALDAIR Titer DNR Normal (applies ALDAIR Titer [facility] to non-numeric Health System results) ALDAIR EIA Negative Normal (applies ALDAIR EIA [facility] to non-numeric Health System results) Pattern DNRTest Normal (applies Pattern [facility] Performed to non-numeric Health System at:[facility] - results) [facility], [place], [place] [id number] Cooper M.D. ID Date Data Source [id number] 03/09/2016 03:57:00 PM EDT [facility] Name Value Range Interpretation Description Data Sup porting Code Source(s) Document(s ) Immunoglobulin G 1257 694 - Normal (applies Immunoglobulin G [facility] Level, Serum mg/dL 1618 to non-numeric Level, Serum Health mg/dL results) System Test Performed at:[facility] [employer] Diagnostic [place], [place] [address]PozrrvzlMaggi Cooper M.D. ID Date Data Source [id number] 03/09/2016 03:57:00 PM EDT [facility] Name Value Range Interpretation Description Data Sup porting Code Source(s) Document(s ) Copper 99 70 - 175 Normal (applies Copper, Serum [facility] [Mass/volu {mcg/dL} mcg/dL to non-numeric Health System me] in results) Serum or Plasma This test was performed at:[facility] [address] [id number] Pe rformed at:[facility], [address] [place] [address] [id number] Jara M.D., Ph.D. ID Date Data Source [id number] 03/09/2016 03:57:00 PM EDT [facility] Name Value Range Interpretation Description Data Sup porting Code Source(s) Document(s ) Complement 56 U/mL 31 - 60 Normal (applies Complement [facility] CH50 U/mL to non-numeric CH50 Health results) System Test Performed at:[facility] [employer] Diagnostic [place], [place] [address]DxbxwchxMaggi Cooper M.D. ID Date Data Source [id number] 03/09/2016 03:57:00 PM EDT [facility] Name Value Range Interpretation Description Data Sup porting Code Source(s) Document(s ) Pyridoxine 8.9 2.1 - Normal (applies Vitamin B6, [facility] [Mass/volume] ng/mL 21.7 to non-numeric Serum Health in Serum or ng/mL results) System Plasma Test performed by:[facility] [address] [id number] Perform ed at:[facility] [address] [place] [address]Dj. Maurice Rogers ID Date Data Source [id number] 03/09/2016 03:57:00 PM EDT [facility] Name Value Range Interpretation Description Data Sup porting Code Source(s) Document(s ) Zinc 94 60 - 130 Normal (applies to Zinc, Serum [facility] [Moles/vol {mcg/dL} mcg/dL non-numeric Health System ume] in results) Serum or Plasma This test was performed at:[employer] [address] [id number] Pe rformed at:[facility], [address] [place] [id number] Jara M.D., Ph.D. ID Date Data Source [id number] 03/09/2016 03:57:00 PM EDT [facility] Name Value Range Interpretation Description Data Sup porting Code Source(s) Document(s ) Aldolase 6.0 U/L <=8.1 Normal (applies Aldolase, [facility] [Enzymatic U/L to non-numeric Serum Health System activity/vo results) lume] in Serum or Plasma Test Performed at:[facility] [place], [place] [address]HkilvqanCole Cooper M.D. ID Date Data Source [id number] 03/09/2016 03:57:00 PM EDT [facility] Name Value Range Interpretation Code Description Data Suha rce(s) Supporting Document(s ) RA Latex Negative Normal (applies to RA Latex [facility] non-numeric Health System results) Method: Latex agglutination ID Date Data Source [id number] 03/09/2016 03:57:00 PM EDT [facility] Name Value Range Interpretation Description Data Sup porting Code Source(s) Document(s ) Myoglobin 21 < = 30 Normal (applies Myoglobin, [facility] [Mass/volume {mcg/L} mcg/L to non-numeric Serum Health Syste m ] in Serum results) or Plasma Test Performed at:[facility], [place], [place] [address]ZdkubyfvMaggi Cooper M.D. ID Date Data Source [id number] 03/09/2016 03:57:00 PM EDT [facility] Name Value Range Interpretation Description Data Sup porting Code Source(s) Document(s ) Cobalamin 461 143 - Normal (applies Vitamin B12, [facility] (Vitamin pg/ml 716 to non-numeric Serum Health System B12) pg/ml results) [Mass/volume ] in Serum or Plasma ID Date Data Source [id number] 03/09/2016 03:57:00 PM EDT [facility] Name Value Range Interpretation Description Data Sup porting Code Source(s) Document(s ) Folate 9.30 >5.8 Normal (applies Folate, Serum [facility] [Mass/volu ng/ml ng/ml to non-numeric Health System me] in results) Serum or Plasma ID Date Data Source [id number] 03/09/2016 03:57:00 PM EDT [facility] Name Value Range Interpretation Description Data Sup porting Code Source(s) Document(s ) C3 127 mg/dl 90 - 180 Normal (applies C3 Complement, [facility] Complemen mg/dl to non-numeric Serum Health System t, Serum results) Test Performed at:[facility], [place], [place] rAun Cooper M.D. ID Date Data Source [id number] 03/02/2016 04:18:00 PM EDT [facility] [...] System Automated count ID Date Data Source [id number] 03/02/2016 04:18:00 PM EDT [facility] Name [...] urine test abnormalities ID Date Data Source [id number] 03/02/2016 04:18:00 PM EDT [facility] Name Value Range Interpretation Description Data Sup porting Code Source(s) Document(s ) Alcohol non-detecte Normal (applies Alcohol Ethyl, [facility] Ethyl, d None to non-numeric Blood Health System Blood Detected results) ID Date Data Source [id number] 02/25/2016 12:42:00 PM EDT [facility] Name Value Range Interpretation Description Data Sup porting Code Source(s) Document(s ) Troponin I 0.00 0.00 - Normal (applies Troponin I [facility] Quantitative ng/ml 0.04 to non-numeric Quantitative Health ng/ml results) System ID Date Data Source [id number] 02/25/2016 06:30:00 AM EDT [facility] Name Value Range Interpretation Description Data Sup porting Code Source(s) Document(s ) Bacteria NO GROWTH Culture [facility] identified in Bacteria Blood Health Syst em Blood by [facility] culture ID Date Data Source [id number] 02/25/2016 06:30:00 AM EDT [facility] Name Value Range Interpretation Description Data Sup porting Code Source(s) Document(s ) Lactic 1.13 0.70 - Normal (applies Lactic Acid, [facility] Acid, {mEq/L} 2.10 to non-numeric Plasma *[facility] Plasma mEq/L results) JEREMY ONLY* *[facility] JEREMY ONLY* ID Date Data Source [id number] 02/25/2016 06:00:00 AM EDT [facility] Name Value Range Interpretation Description Data Sup porting Code Source(s) Document(s ) 25 Hydroxy 66 ng/mL 30 - 100 Normal (applies 25 Hydroxy [facility] Vitamin D ng/mL to non-numeric Vitamin D Health System results) 25 Hydroxy 8 ng/mL 0 - Normal (applies 25 Hydroxy D3 [facility] D3 685185 to non-numeric Health System ng/mL results) 25 Hydroxy 58 ng/mL 0 - Normal (applies 25 Hydroxy D2 [facility] D2 468770 to non-numeric Health System ng/mL results) 25-OHD3 indicates both endogenous produc tion andsupplementation. 25-OHD2 is an indicator of exogenoussources such as di et or supplementation. Therapy is based onmeasurement of Total 25-OHD, with leve ls <20 ng/mL indicativeof Vitamin D deficiency, while levels between 20 ng/m L and30 ng/mL suggest insufficiency. Optimal levels are> or = 30 ng/mL.Test Performed at:[facility], [place] [id number] angel muñoz M.D. ID Date Data Source [id number] 02/25/2016 06:00:00 AM EDT [facility] Name Value [...] System Automated count ID Date Data Source [id number] 02/25/2016 06:00:00 AM EDT [facility] Name [...] [facility] total [Moles/volume] mmol/L to non-numeric [facility] System in Serum or Plasma results) ok [...] in mg/dl to non-numeric Nitrogen, Health S yste Serum or Plasma results) Serum Creatinine 0.70 [...] Total Health System Serum or Plasma results) Direct Bilirubin 0.1 mg/dl 0.0 - 0.4 Normal (applies Direct [facility] mg/dl to non-numeric Bilirubin Health System results) Aspartate 14 {IU/L} 5 - 40 Normal (applies Aspartate [facility] aminotransferase IU/L to non-numeric Transaminase, [facility] System [Enzymatic results) Serum activity/volume] in Serum [...] [facility] aminotransferase IU/L (applies to Aminotransferase, [facility] System [Enzymatic non-numeric Serum activity/volume] in results) Serum or Plasma Calcium 7.7 mg/dl 8.4 - Below low Calcium, Total Serum [facility] [Mass/volume] in 10.2 normal Health System Serum or Plasma mg/dl ok A/G Ratio 1.63 Normal (applies to A/G Ratio [facility] non-numeric System results) Urate 4.7 mg/dl 2.5 - Normal (applies to Uric Acid, [facility] [Mass/volume] in 7.5 non-numeric Serum System Serum or Plasma mg/dl results) Anion gap in Serum 6.00 mmol/L 8.00 - Below low normal Anion Gap [facility] or Plasma 12.00 System mmol/L Glomerular 89.54 Normal (applies to GFR [facility] filtration non-numeric System rate/1.73 sq results) [...] urine test abnormalities ID Date Data Source [id number] 02/25/2016 06:00:00 AM EDT [facility] Name Value Range Interpretation Description Data Sup porting Code Source(s) Document(s ) Creatine 121 30 - 135 Normal ([facility].MB {IU/L} IU/L to non-numeric Kinase, Serum Health Syst em [Mass/volum results) e] in Serum or Plasma ID Date Data Source [id number] 02/24/2016 10:32:00 PM EDT [facility] Name Value Range Interpretation Description Data Sup porting Code Source(s) Document(s ) Prolactin 16.5 Normal (applies Prolactin, [facility] [Mass/volume] ng/mL to non-numeric Serum Health Syst em in Serum or results) Plasma Reference RangeFemalePostmenopausal: 2.0- 20.0: 10.0-209.0Non-: 3.0- 3 0.0Test Performed at:[facility] [employer], [place] [address] Cole Cooper M.D. ID Date Data Source [id number] 02/24/2016 06:52:00 PM EDT [facility]ian [facility] Name Value Range Interpretation Description Data Sup porting Code Source(s) Document(s ) Valproate 26.3 "." Normal (applies Valproic Acid [facility] [Mass/volume ug/ml ug/ml to non-numeric Level, Serum Health Sy stem ] in Serum results) or Plasma Therapeutic 50 - 100Toxic >100 ug/mL ID Date Data Source [id number] 02/24/2016 06:42:00 PM EDT [facility] Name Value Range Interpretation Description Data Sup porting Code Source(s) Document(s ) aPTT in Blood 27.1 23.9 - Normal (applies Activated [facility] by {Second 30.6 to non-numeric Partial Health Coagulation s} Seconds results) Thromboplastin System assay Time ID Date Data Source [id number] 02/24/2016 06:42:00 PM EDT [facility] [...] Heart = 3.0-4.5 ID Date Data Source [id number] 02/24/2016 06:42:00 PM EDT [facility]odamian [facility] System Name Value Range Interpretation [...] System Automated count ID Date Data Source [id number] 02/24/2016 06:42:00 PM EDT [facility] Name Value Range Interpretation Description Data Sup porting Code Source(s) Document(s ) Natriuretic < 10.0 0.0 - Normal (applies B-Type [facility] peptide B 101.0 to non-numeric Natriuetic Health [Mass/volume] pg/ml results) Peptide System in Serum or Plasma ID Date Data Source [id number] 02/24/2016 06:42:00 PM EDT [facility] Name [...] [Mass/volume] in mg/dl mg/dl to non-numeric Nitrogen, [facility] Serum or Plasma results) Serum System Creatinine 1.01 0.70 - Normal (applies Creatinine, [facility] [Mass/volume] in mg/dl 1.20 to non-numeric Serum Health Serum or Plasma mg/dl results) System Alkaline 67 38 - Normal (applies Alkaline [facility] phosphatase {IU/L} 126 to non-numeric Phosphatase, [facility] isoenzymes IU/L results) Serum System [Enzymatic activity/volume] [...] urine test abnormalities ID Date Data Source [id number] 02/24/2016 06:42:[address] [facility] System Name Value Range Interpretation Description Data Sup porting Code Source(s) Document(s ) Alcohol none Normal (applies Alcohol Ethyl, [facility] Ethyl, detected to non-numeric Blood Health System Blood None results) Detected ID Date Data Source [id number] 02/24[facility]2016 [facility] Name Value Range Interpretation Description Data Sup porting Code Source(s) Document(s ) Acetaminophen < 1 10 - 30 Below low normal Acetaminophen Reynaldo josy [Mass/volume] in ug/ml Level, Serum Health Serum or Plasma [place] [address] ID Date Data Source [id number] 02/24/2016 [facility]:42[facility] Name Value Range Interpretation Description Data Sup porting Code Source(s) Document(s ) Troponin I 0.00 0.00 - Normal (applies Troponin I [facility] Quantitative ng/ml 0.04 to non-numeric Quantitative Health ng/ml results) System ID Date Data Source [id number] 02/24/2016 [facility]:42[facility] Name Value Range Interpretation Description Data Sup porting Code Source(s) Document(s ) Acetylsalicylate < 5 2.0 - Normal (applies Salicylate [facility] [Mass/volume] in 30.0 to non-numeric Level, Serum Healt h Serum or Plasma mg/dl results) System ID Date Data Source [id number] 02/24/2016 06:42:00 PM [facility] System Name Value Range Interpretation [...] test if needed. ID Date Data Source [id number] 02/24/2016 02:11:00 PM EDT [facility] [...] should be ordered. ID Date Data Source [id number] 02/24/2016 02:11:00 PM EDT [facility] Name Value Range Interpretation Description Data Sup porting Code Source(s) Document(s ) Color YELLOW Yellow Normal (applies Color [facility] to non-numeric Health results) System Appearance of CLEAR Clear Normal (applies Urine [facility] Urine to non-numeric Appearance Health results) System Specific 1.025 Normal (applies Urine Specific [facility] gravity of to non-numeric [facility] Urine results) System pH.. 5.5 4.6 [...] Health results) System ID Date Data Source [id number] 02/23/2016 02:35:00 PM EDT [facility] [...] System Automated count ID Date Data Source [id number] 02/23/2016 02:35:00 PM EDT [facility] System Name Value Range Interpretation Description Data Sup porting Code Source(s) Document(s ) Valproate 15.8 "." Normal (applies Valproic Acid [facility] [Mass/volume ug/ml ug/ml to non-numeric Level, Serum Health Sy stem ] in Serum results) or Plasma Therapeutic 50 - 100Toxic >100 ug/mL ID Date Data Source [id number] 02/23/2016 02:35:00 PM EDT [facility] Name Value Range Interpretation Description Data Sup porting Code Source(s) Document(s ) Thyrotropin 1.880 0.380 - Normal (applies Thyroid [facility] [Mass/volume] {mIU/mL} 6.150 to non-numeric Stim[facility] in Serum or mIU/mL results) Hormone, System Plasma Serum ID Date Data Source [id number] 02/23/2016 02:35:00 PM EDT [facility] [...] urine test abnormalities ID Date Data Source [id number] 02/23/2016 02:35:00 PM EDT [facility] System Name [...] Serum or Plasma results) <200 mg/dL = [id number] - 239 md/dL = Borderline>240 mg/dL = [...] non-numeric System results) ID Date Data Source [id number] 02/23/2016 02:35:00 PM EDT [facility] Name Value Range Interpretation Code Description Data Suha rce(s) Supporting Document(s ) HbA1C 5.2 % 4.6 - 6.2 % Normal (applies to HbA1C [facility] non-numeric Health System results) ID Date Data Source [id number] 12/06/2015 10:35:00 AM EST [facility] Name Value Range Interpretation Description Data Sup porting Code Source(s) Document(s ) Strep Group Negative Normal (applies to Strep Group A Reynaldo josy A Direct non-numeric Direct Antigen Health System Antigen results) Method: ImmunochromatographicRapid Strep Grp A preliminary test only!!! Final result will be confirmed by culture. ID Date Data Source [id number] 11/27/2015 05:49:00 AM LORE [facility] System Name Value Range Interpretation Description Data Sup porting Code Source(s) Document(s ) Amphetamine Negative Negative Normal (applies Amphetamine [facility] [Mass/volume] ng/ml to non-numeric Level, Urine Health in Urine results) System Cut-off = 1000 ng/mL Barbiturates Negative Negative Normal (applies Barbiturate [facility] [Mass/volume] in ng/ml to non-numeric Screen, Urine [facility] System Urine by Screen results) method Cut-off [...] [facility] [Mass/volume] in to non-numeric Level, Urine [facility]) Cut-off = [...] test if needed. ID Date Data Source [id number] 11/27/2015 03:00:00 AM LORE [facility] System Name Value Range [...] should be ordered. ID Date Data Source [id number] 11/27/2015 03:00:00 AM EST [facility] Name Value Range Interpretation Description Data Sup porting Code Source(s) Document(s ) Color YELLOW Yellow Normal (applies Color [facility] to non-numeric Health results) System Appearance of SL CLOUDY Clear Normal (applies Urine [facility] Urine to non-numeric Appearance Health results) System Specific 1.010 Normal (applies Urine Specific [facility] gravity of to non-numeric [facility] Urine results) System pH.. 6.5 4.6 [...] Health results) System ID Date Data Source [id number] 11/27/2015 03:00:00 AM EST [facility] [...] Heart = 3.0-4.5 ID Date Data Source [id number] 11/27/2015 03:00:00 AM EST [facility] [...] System Automated count ID Date Data Source [id number] 11/27/2015 03:00:00 AM EST [facility] [...] urine test abnormalities ID Date Data Source [id number] 12/13/2014 06:00:00 AM EST [facility] [...] System Automated count ID Date Data Source [id number] 12/13/2014 06:00:00 AM EST [facility] Name Value Range Interpretation Description Data Sup porting Code Source(s) Document(s ) Thyrotropin 0.388 0.380 - Normal (applies Thyroid [facility] [Mass/volume] 6.150 to non-numeric [facility] in Serum or results) Hormone, Serum System Plasma ID Date Data Source [id number] 12/13/2014 06:00:00 AM LORE [facility] System Name Value Range Interpretation Description [...] urine test abnormalities ID Date Data Source [id number] 12/12/2014 06:00:00 AM EST [facility] System Name Value Range Interpretation [...] System Automated count ID Date Data Source [id number] 12/12/2014 06:00:00 AM EST [facility] [...] urine test abnormalities ID Date Data Source [id number] 12/11/2014 04:29:00 PM EST [facility] Name Value Range Interpretation Description Data Sup porting Code Source(s) Document(s ) HCG NEGATIVE Negative Normal (applies HCG [facility] Qualitative mIU/ml to non-numeric Qualitative Health results) System Default Normal RangesNegative <5Indeterm inate 5-25(Please repeat in 2 days.)Positive >25 ID Date Data Source [id number] 12/11/2014 08:50:00 AM EST [facility] Name Value Range Interpretation Description Data Sup porting Code Source(s) Document(s ) Color YELLOW Yellow Normal (applies Color [facility] to non-numeric Health results) System Appearance of CLEAR Clear Normal (applies Urine [facility] Urine to non-numeric Appearance Health results) System Specific 1.010 Normal (applies Urine Specific [facility] gravity of to non-numeric [facility] Urine results) System pH.. 6.0 4.6 [...] Health results) System ID Date Data Source [id number] 12/11/2014 07:06:00 AM EST [facility] Name Value Range Interpretation Description Data Sup porting Code Source(s) Document(s ) Prolactin 14.7 Normal (applies Prolactin, [facility] [Mass/volume] ng/mL to non-numeric Serum Health Syst em in Serum or results) Plasma Reference Range Female Postmenopausal: 2.0- 20.0 : 10.0-209.0 Non-: 3.0- 30.0 Test Performed at: [place] [address] Adriana Ruiz M.D. ID Date Data Source [id number] 12/11/2014 06:00:00 AM EST [facility] [...] System Automated count ID Date Data Source [id number] 12/11/2014 06:00:00 AM LORE [facility] System Name Value Range [...] System Plasma results) ID Date Data Source [id number] 12/11/2014 06:00:00 AM LORE [facility] System Name Value Range Interpretation Description Data Sup porting Code Source(s) Document(s ) Creatine 179 30 - 135 Above high normal Creatine [facility] kinase.MB {IU/L} IU/L Kinase, Serum Health System [Mass/volum e] in Serum or Plasma ID Date Data Source [id number] 12/11/2014 04:50:00 AM LORE [facility] System Name Value Range Interpretation Description Data Sup porting Code Source(s) Document(s ) Gabapentin 0.00 Normal (applies to Gabapentin [facility] [Mass/volume] non-numeric Level, Serum Health Syst em in Serum or results) Plasma ID Date Data Source [id number] 12/10/2014 04:36:00 PM EST [facility] System Name Value Range Interpretation Description Data Sup porting Code Source(s) Document(s ) Bacteria NO GROWTH Culture [facility] identified in Bacteria Blood Health Syst em Blood by [facility] culture ID Date Data Source [id number] 12/10/2014 04:36:00 PM EST [facility] System Name Value Range Interpretation Description Data Sup porting Code Source(s) Document(s ) Bacteria NO GROWTH Culture [facility] identified in Bacteria Blood Health Syst em Blood by [facility] culture ID Date Data Source [id number] 12/10/2014 04:36:00 PM EST [facility] System Name Value Range Interpretation Description Data Sup porting Code Source(s) Document(s ) Color YELLOW Yellow Normal (applies Color [facility] to non-numeric Health results) System Specific 1.020 Normal (applies Urine Specific [facility] gravity of to non-numeric [facility] Urine results) System Appearance of CLEAR [...] results) System specimen ID Date Data Source [id number] 12/10/2014 04:36:00 PM EST [facility] [...] Heart = 3.0-4.5 ID Date Data Source [id number] 12/10/2014 04:36:00 PM EST [facility] [...] System Automated count ID Date Data Source [id number] 12/10/2014 04:36:00 PM EST [facility] [...] urine test abnormalities ID Date Data Source [id number] 12/10/2014 04:36:00 PM EST [facility] Name Value Range Interpretation Description Data Sup porting Code Source(s) Document(s ) Alcohol non Normal (applies Alcohol Ethyl, [facility] Ethyl, detected to non-numeric Blood Health System Blood None results) Detected ID Date Data Source [id number] 12/10/2014 04:36:00 PM EST [facility] Name Value Range Interpretation Description Data Sup porting Code Source(s) Document(s ) Troponin I 0.00 0.00 - Normal (applies Troponin I [facility] Quantitative ng/ml 0.04 to non-numeric Quantitative Health ng/ml results) System ID Date Data Source [id number] 12/10/2014 04:36:00 PM EST [facility] Name Value Range Interpretation Description Data Source(s ) Supporting Code Document(s ) Lipase 5 U/L 8 - 78 Below low normal Lipase, Serum [facility] [Enzymatic U/L Health System activity/v olume] in Serum or Plasma ID Date Data Source [id number] 12/10/2014 04:36:00 PM EST [facility] Name Value Range Interpretation Description Data Sup porting Code Source(s) Document(s ) Amphetamine Negative Negative Normal (applies Amphetamine [facility] [Mass/volume] ng/ml to non-numeric Level, Urine Health in Urine results) System Cut-off = 1000 ng/mL Barbiturates Negative Negative Normal (applies Barbiturate [facility] [Mass/volume] in ng/ml to non-numeric Screen, Urine [facility] System Urine by Screen results) method Cut-off [...] [facility] [Mass/volume] in to non-numeric Level, Urine [facility] results) Cut-off = 300 ng/mL Opiate 300, Negative Negative ng/ml Normal (applies to Opiate 300, [facility] Urine non-numeric Urine Health System results) Cut-off = 300 ng/mL Phencyclidine Positive Negative Abnormal Phencyclidine, [facility] [Mass/volume] in ng/ml (applies to Urine Health Syst em Urine non-numeric results) Cut-off = 25 ng/mL THC Negative Negative ng/mL Normal (applies to THC [facility] non-numeric results) Cutt-off = 50These results are for medic al treatment only. The positive findings are unconfirmed. Request confirmatory/quanti tative test if needed. ID Date Data Source [id number] 12/10/2014 04:36:00 PM EST [facility] Name Value Range Interpretation Description Data Sup porting Code Source(s) Document(s ) Creatine 177 30 - 135 Above high normal Creatine [facility] kinase.MB {IU/L} IU/L Kinase, [facility] [Mass/volum e] in Serum or Plasma ID Date Data Source [id number] 12/10/2014 04:36:00 PM EST [facility] [...] Current Smoker eCW3 ( [place] 12:00:00 AM [facility]) Smoking 01/18/2020 Current Smoker completed Current Smoker eCW3 ( [place] 12:00:00 AM [facility]) Smoking 03/14/2019 Daily Smoker completed Daily Smoker [facility] 10:12:00 PM EDT Medical C enter Smoking 03/14/2019 Daily Smoker completed Daily Smoker [facility] 09:39:00 PM EDT Medical C enter Smoking 03/14/2019 Daily Smoker completed Daily Smoker [facility] 09:33:00 PM EDT Medical C enter Smoking Unknown if ever completed Unknown if ever Leroy Tellez smoked [facility] Current Smoker completed Current Smoker eCW3 ( [facility]) Current Smoker completed Current Smoker eCW3 ( [facility]) Smoking Unknown if ever completed Unknown if ever eCW2 ([place] smoked smoked [facility]) Smoking Unknown if ever completed Unknown if ever eCW2 ([place] smoked smoked [facility]) Smoking Unknown if ever completed Unknown if ever eCW2 ([place] smoked smoked [facility]) Smoking Unknown if ever completed Unknown if ever eCW2 ([place] smoked smoked [facility]) Vital Signs ID Date Data Source UNK Name Value Range Interpretation Code Description Data Source(s) Diastolic blood 87 mm[Hg] 87 mm[Hg] eCW3 ([facility] pressure [facility]) Systolic blood 125 mm[Hg] 125 mm[Hg] eCW3 ([facility]) Body temperature 98.2 [degF] 98.2 [degF] eCW3 ( [facility]) Heart rate 20 /min 20 /min eCW3 ([facility]) Body mass index 18.19 kg/m2 18.19 kg/m2 eCW3 ([facility] (BMI) [Ratio] [facility]) Body weight 106 [lb_av] 106 [lb_av] eCW3 ([facility]) Body height 64 [in_i] 64 [in_i] eCW3 ([facility]) Body mass index 18.9 kg/m2 18.9 kg/m2 [facility] (BMI) [Ratio] [facility] em Body temperature 36.4 [place] 0 - 99.9 Below low normal 36.4 [place] Body temperature 97.6 [degF] 0 - 200 Normal (applies to 97.6 [degF ] [facility] results) Diastolic blood 104 mm[Hg] 0 - 999 Above upper panic 104 mm[Hg] [facility] pressure limits [facility] System Systolic blood 133 mm[Hg] 0 - 999 Normal (applies to 133 mm[Hg] [facility] pressure non-numeric Health System results) Deprecated Oxygen 100 % 0 - 999 Normal (applies to 100 % [facility] saturation in non-numeric Health Sys tem Capillary blood results) by Oximetry Respiratory rate 16 0 - 999 Normal (applies to 16 [facility] non-numeric [facility] results) Heart rate 78 0 - 999 Normal (applies to 78 [facility] non-numeric [facility] results) Body weight 53.[address] [facility] Measured Health System Body height 167.[address] [facility] Body surface area 1.5 m2 1.5 m2 [facility] Derived from Health Syste m formula Body temperature 36.522192 36.626484 [place] [facility] Respiratory rate 17 /min 17 /min [facility] Oxygen saturation 98 % 98 % [facility] osephs in Arterial blood Medical Center by Pulse oximetry Heart rate 81 /min 81 /min [facility] Diastolic blood 75 mm[Hg] 75 mm[Hg] [facility] pressure Medical Center Systolic blood 152 mm[Hg] 152 mm[Hg] [facility] pressure [facility] Center Body weight 56.968591 56.165320 kg [facility] Measured kg [facility] Center Body temperature 36.425154 36.177606 [place] [facility] Respiratory rate 17 /min 17 /min [facility] Oxygen saturation 100 % 100 % [facility] in Arterial blood Medical Center by Pulse oximetry Heart rate 90 /min 90 /min [facility] Diastolic blood 106 mm[Hg] 106 mm[Hg] [facility] Systolic blood 160 mm[Hg] 160 mm[Hg] [facility] Diastolic blood 86 mm[Hg] 86 mm[Hg] eCW3 ([facility]) Systolic blood 112 mm[Hg] 112 mm[Hg] eCW3 ([facility]) Body temperature 98.3 [degF] 98.3 [degF] eCW3 ( [facility]) Heart rate 18 /min 18 /min eCW3 ([facility]) Body mass index 18.19 kg/m2 18.19 kg/m2 eCW3 ([facility] (BMI) [Ratio] [facility]) Body weight 106 [lb_av] 106 [lb_av] eCW3 ([facility]) Body height 64 [in_i] 64 [in_i] eCW3 ([facility]) Respiratory rate 17 0 - 999 Normal (applies to 17 [facility] non-numeric [facility] results) Deprecated Oxygen 99 % 0 - 999 Normal (applies to 99 % [facility] saturation in non-numeric Health Sys [...] - 200 Normal (applies to 98 [degF] [facility] non-numeric Health System results) Body height 162.56 cm 162.56 cm [facility] System Body weight 47.[address] [facility] Measured [facility] Body mass index 18 kg/m2 18 kg/m2 [facility] [Ratio[facility] Health Syst Body surface area 1.4 m2 1.4 m2 [facility] ore Derived from [employer] m formula Heart rate 91 0 - 999 Normal (applies to 91 [facility] non-numeric [facility] results) Respiratory rate 15 0 - 999 Normal (applies to 15 [facility] non-numeric Health System results) Deprecated Oxygen 100 % 0 - 999 Normal (applies to 100 % [facility] in [facility]-numeric [facility] Cap[facility] blood results) by Oximetry Systolic blood 153 mm[Hg] 0 - 999 Above high normal 153 mm[Hg] Mon [facility]. [facility] pressure Health System Diastolic blood 111 mm[Hg] 0 - 999 Above upper panic 111 mm[Hg] [facility] pressure limits [facility] Body temperature 36.5 [place] 0 - 99.9 Normal (applies to 36.[address] [facility] Health System results) Body temperature 97.8 [degF] 0 - 200 Normal (applies to 97.8 [degF ] [facility] Health System results) Body height 162.56 cm 162.56 cm [facility] System Body weight 44.[address] [facility] Measured [facility] Body mass index 16.8 kg/m2 16.8 kg/m2 [facility] (BMI) [Ratio] Health Syst Body surface area 1.4 m2 1.4 m2 [facility] ore Derived from [employer] m formula Body mass index 21.4 kg/m2 21.4 kg/m2 [facility] (BMI) [Ratio] Health Syst Heart rate 86 0 - 999 Normal (applies to 86 [facility] non-numeric [facility] results) Deprecated Oxygen 98 % 0 - 999 Normal (applies to 98 % [facility] saturation in non-numeric [facility] Capillary blood results) by Oximetry Systolic blood 100 mm[Hg] 0 - 999 Below low normal 100 mm[Hg] [facility] pressure [facility] Diastolic blood 65 mm[Hg] 0 - 999 Below low normal 65 mm[Hg] [facility] pressure [facility] Body temperature 97.1 [degF] 0 - 200 Normal (applies to 97.1 [degF ] [facility] non-numeric Health System results) Body temperature 36.1 [place] 0 - 99.9 Below low normal 36.1 [place] Mo [facility] Respiratory rate 15 0 - 999 Normal (applies to 15 [facility] non-numeric Health System results) Body height 162.[address] [facility] Body weight 56.[address] [facility] Measured Health System Body surface area 1.6 m2 1.6 m2 [facility] Derived from [employer] Sy[employer] m formula Diastolic blood 90 mm[Hg] 90 mm[Hg] eCW2 ([facility]) Systolic blood 147 mm[Hg] 147 mm[Hg] eCW2 ([facility]) Body temperature 98.2 [degF] 98.2 [degF] eCW2 ( [facility]) Heart rate 20 /min 20 /min eCW2 ([facility]) Body mass index 17.88 kg/m2 17.88 kg/m2 eCW2 ([facility] (BMI) [Ratio] [facility]) Body weight 104.2 104.2 [lb_av] eCW2 ([facility] on Measured [lb_av] [facility]) Body height 64 [in_us] 64 [in_us] eCW2 ([facility]) Patient Treatment Plan of Care Planned Activity Planned Date Details Description Data Source (s) Ibuprofen 800 MG Oral Tablet 04/23/2020 eCW3 ([facility] 12:00:00 AM [facility]) Levetiracetam 100 MG/ML 05/28/2019 [facility] Injectable Solution [Keppra] 04:58:23 PM EDT System Albuterol 0.833 MG/ML / 05/28/2019 [facility] Ipratropium Gleason 0.167 04:58:05 PM EDT System MG/ML Inhalant Solution Divalproex Sodium 500 MG 05/28/2019 [facility] Delayed Release Oral Tablet 04:57:53 PM EDT System Amlodipine 2.5 MG Oral Tablet 05/28/2019 [facility] 04:57:42 PM EDT System NITROFURANTOIN, MACROCRYSTALS 07/25/2018 eCW2 ([place] 25 MG / Nitrofurantoin, 12:00:00 AM EDT H [facility]) Monohydrate 75 MG Oral Capsule [Macrobid] Albuterol 11/29/2016 [facility]al th 11:28:42 AM EST System Budesonide 0.16 MG/ACTUAT / 11/29/2016 [facility] Health formoterol fumarate 0.0045 11:28:08 AM EST System MG/ACTUAT Metered Dose Inhaler Albuterol 0.833 MG/ML / 11/29/2016 [facility] Ipratropium Gleason 0.167 11:22:40 AM EST System MG/ML Inhalant Solution Valproic Acid 250 MG [facility] C[facility] 11:17:29 AM EST System pantoprazole 20 MG Delayed 11/29/2016 [facility] Release Oral Tablet 12:00:00 AM EST Syste m montelukast 10 MG Oral Tablet 11/29/2016 [facility] Health 12:00:00 AM EST System Escitalopram 10 MG Oral 11/29/2016 [facility] Health Tablet 12:00:00 AM EST System 24 HR quetiapine 50 MG 11/29/2016 Health system Extended Release Oral Tablet 12:00:00 AM EST System Clonidine Hydrochloride 0.1 11/29/2016 [facility] Health MG Oral Tablet 12:00:00 AM EST System Divalproex Sodium 500 MG 08/07/2016 [facility] Health Delayed Release Oral Tablet 11:40:53 AM EDT System [Depakote] Divalproex Sodium 250 MG 08/07/2016 [facility] Health Delayed Release Oral Tablet 11:12:17 AM EDT System [Depakote] doxycycline hyclate 100 [facility]aps[facility] 04:29:21 PM EDT System Azithromycin 250 MG Oral 12/06/2015 [facility] Health Tablet 12:38:10 PM EST System Acetaminophen 325 MG / 11/27/2015 Health system Oxycodone Hydrochloride 5 MG 06:36:17 AM EST System Oral Tablet NITROFURANTOIN, MACROCRYSTALS 11/27/2015 [facility] 25 MG / Nitrofurantoin, 06:35:57 AM EST S ystem Monohydrate 75 MG Oral Capsule [Macrobid] Prednisone 50 MG Oral Tablet 01/17/2015 [facility] 07:29:17 PM EDT System aripiprazole 15 MG Oral 12/13/2014 [facility] Tablet [Abilify] 02:09:52 PM EST System 24 HR Nicotine 0.583 MG/HR 12/13/2014 M [facility] Transdermal Patch 02:07:42 PM EST System Divalproex Sodium 500 MG Mon [facility] Delayed Release Oral Tablet System Naprosyn [facility] System 24 HR quetiapine 50 MG Health system Extended Release Oral Tablet System [Seroquel] Albuterol 0.1 MG/ACTUAT / [facility] Ipratropium [facility] 0.02 Sys tem MG/ACTUAT Metered Dose Inhaler Epinephrine [facility] System Ergocalciferol [facility] montelukast [address] [facility] Hydrochlorothiazide 25 MG Mo [facility] Oral Tablet System Amlodipine [address] [facility] Escitalopram 10 MG Oral [facility] Tablet System gabapentin [address] [facility] fluticasone furoate 0.2 [facility] MG/ACTUAT / vilanterol 0.025 System MG/ACTUAT Dry Powder Inhaler lamotrigine 100 MG Oral [facility] Tablet System Phenytoin sodium 100 MG [facility] Extended Release Oral Capsule System tizanidine [address] [facility] pregabalin 75 MG Oral Capsule [facility] [Lyrica] System aripiprazole 20 MG Oral [facility] Tablet [Abilify] System Baclofen 10 MG Oral Tablet [facility] System Ibuprofen 600 MG Oral Tablet [facility] Center Cyclobenzaprine hydrochloride [facility] 10 MG Oral Tablet Medical Ce nter
[2020-07-28] MEDS ORDERED: KETOROLAC TROMETHAMINE 30 MG/1 ML VIAL ONE (14:22)
[2020-07-28] MEDS ORDERED: MIDAZOLAM HCL 2 MG/2 ML SINGLE DOSE VIAL ONE (14:23)
--- NOTE | 2020-07-28 15:17 | OP ---
Operative Note - Note: Operative Date: 07/28/20 Pre-Operative Diagnosis: Right renal stone Operation: Right ESWL Findings: 7mm lower pole Right renal stone Post-Operative Diagnosis: Same as Pre-op Surgeon: Jose Stanley Estimated Blood Loss (mls): 0 Operative Report Dictated: Yes
[2020-07-28 15:37] VITALS: BP 130/90; PULSE 83; TEMP 98.2
--- NOTE | 2020-07-28 17:20 | OP ---
DATE OF OPERATION: 07/28/2020 PREOPERATIVE DIAGNOSIS: Right renal stone. POSTOPERATIVE DIAGNOSIS: Right renal stone. PROCEDURE: Right extracorporeal shockwave lithotripsy. ATTENDING: Aaorn Conrad MD ANESTHESIA: Fractional. DESCRIPTION OF OPERATION: The patient was brought into the operating room and placed in a supine position on the operating room table. Ultrasonography and fluoroscopy were performed. A 7-mm right lower pole stone was identified. Anesthesia and preoperative antibiotics were then administered. Shockwave lithotripsy was then started; 2500 impulses at 17 joules of power were administered to the stone with excellent fragmentation of the stone under real time ultrasonography and fluoroscopy. No complications were noted. The patient tolerated this procedure very well. The disposition of the patient was to the recovery room. AARON CONRAD M.D. [id number]
== END 2020-07-28 15:40 | disposition home or self-care (01) ==
LOC: JASU-SURG 04:21
PROVIDERS: ATTEND Urology
PROC: 0TF3XZZ Fragmentation in Right Kidney Pelvis, External Approach (ICD-10-PCS; principal; 2020-07-28 14:26)
DX: N20.0 Calculus of kidney (principal)
CPT/HCPCS: 82962

== ENCOUNTER 2021-01-02 17:02 | Inpatient (IN) | payer MEDICARE, OTHER ==
[2021-01-02 17:33] VITALS: BMI 22.3
[2021-01-02] MEDS ORDERED: SODIUM CHLORIDE 0.9% 500 ML INFUS.BAG IV ONE (18:37)
[2021-01-02 19:36] LABS: BASO % 0.7 % (0-2.0); EOS % 4.8 % (0-4.5); HEMATOCRIT 35.2 % (32.4-45.2); HEMOGLOBIN 11.8 GM/dL (10.7-15.3); LYMPH % 24.2 % (8-40); MCH 32.2 pg (25.7-33.7); MCHC 33.6 g/dl (32.0-36.0); MEAN CELL VOLUME 95.9 fl (80-96); MEAN PLT VOLUME 7.5 fl (7.5-11.1); MONO % 7.6 % (3.8-10.2); NEUT % 62.7 % (42.8-82.8); PLATELET COUNT 248 K/MM3 (134-434); RBC 3.67 M/mm3 (3.60-5.2); RDW 13.5 % (11.6-15.6); WHITE BLOOD COUNT 7.6 K/mm3 (4.0-10.0)
[2021-01-02 19:49] LABS: POTASSIUM 4.2 mmol/L (3.5-5.1)
[2021-01-02 19:52] LABS: ALBUMIN 3.4 g/dl (3.4-5.0); BLOOD UREA NITROGEN 9.1 mg/dL (7-18)
[2021-01-02 19:55] LABS: CREATININE 0.6 mg/dL (0.55-1.3)
[2021-01-02 19:56] LABS: BILIRUBIN,TOTAL 0.4 mg/dL (0.2-1); TOT PROT 6.9 g/dl (6.4-8.2)
[2021-01-02] MEDS ORDERED: DEXTROSE 50%-WATER - 25 GM/50 ML VIAL IVPUSH ONE (19:58)
[2021-01-02] MEDS ORDERED: DEXTROSE 50%-WATER 25 GM/50 ML DISP.SYRIN ONE (20:49)
[2021-01-02] MEDS ORDERED: VALPROATE SODIUM 500 MG/5 ML VIAL IVPB ONE ×2 (22:12→22:26)
[2021-01-02 22:31] LABS: EPI CELLS 3 /uL (0-25.1); HYALINE CASTS 0 /uL (0-3.1); URINE APPEARANCE CLEAR; URINE BACTERIA 11 /uL (0-1359); URINE BILIRUBIN NEGATIVE (NEGATIVE); URINE COLOR YELLOW; URINE GLUCOSE (UA) TRACE (NEGATIVE); URINE KETONE NEGATIVE (NEGATIVE); URINE LEUK ESTERASE TRACE (NEGATIVE); URINE NITRITE NEGATIVE (NEGATIVE); URINE PROTEIN NEGATIVE (NEGATIVE); URINE RBC 51 /uL (0-23.9); URINE UROBILINOGEN 0.2 mg/dL (0.2-1.0); URINE WBC 6 /uL (0-25.8)
[2021-01-02 22:43] LABS: METHADONE, UR NEGATIVE ng/ml (CUTOFF=300); OPIATES, URI NEGATIVE ng/ml (CUTOFF=300); URINE BARBITURATES NEGATIVE ng/ml (CUTOFF=200); URINE BENZODIAZEPINES NEGATIVE ng/ml (CUTOFF=200)
[2021-01-02] MEDS ORDERED: VALPROATE SODIUM 500 MG/5 ML VIAL ONE ×2 (23:23→23:24)
[2021-01-02 23:24] LABS: COCAINE, UR NEGATIVE ng/ml (CUTOFF=300); URINE AMPHETAMINES NEGATIVE ng/ml (CUTOFF=500)
[2021-01-02 23:28] LABS: PHENCYCLIDINE,URINE POSITIVE ng/ml (CUTOFF=25)
[2021-01-03] MEDS ORDERED: PHENYTOIN NA EXTENDED 100 MG CAPSULE (FP) PO ONE ×4 (02:44→08:00)
[2021-01-03] MEDS ORDERED: SODIUM CHLORIDE 1,000 ML IV SCH (02:45)
[2021-01-03] MEDS ORDERED: ALBUTEROL SO4 2.5/IPRATROPIUM 0.5 INH SOL 3 ML VIAL.NEB. NEB PRN (02:50)
[2021-01-03] MEDS ORDERED: PHENYTOIN NA EXTENDED 100 MG CAPSULE (FP) ONE ×3 (03:54→07:31)
[2021-01-03] MEDS ORDERED: GABAPENTIN 100 MG CAPSULE ONE (05:12)
[2021-01-03] MEDS ORDERED: GABAPENTIN 400 MG CAPSULE PO SCH (06:00)
[2021-01-03] MEDS ORDERED: INSULIN SLIDING SCALE (NOVOLOG) 1 VIAL SQ SCH (07:00)
[2021-01-03] MEDS ORDERED: HYDROCHLOROTHIAZIDE 25 MG TABLET (FP) ONE (09:26)
[2021-01-03] MEDS ORDERED: lamoTRIgine 100 MG TABLET ONE (09:27)
[2021-01-03] MEDS ORDERED: ENOXAPARIN NA (PORCINE) 40 MG/0.4 ML DISP.SYRIN SQ ONE (09:27)
[2021-01-03] MEDS ORDERED: DIVALPROEX SODIUM 500 MG TABLET E.C. ONE (09:27)
[2021-01-03] MEDS ORDERED: FOLIC ACID 1 MG TABLET (FP) ONE (09:27)
[2021-01-03] MEDS ORDERED: NAPROXEN 500 MG TABLET PO ONE (09:30)
[2021-01-03 09:48] VITALS: BP 106/73; PULSE 98; TEMP 98.6
[2021-01-03] MEDS ORDERED: lamoTRIgine 100 MG TABLET PO SCH (10:00)
[2021-01-03] MEDS ORDERED: HYDROCHLOROTHIAZIDE 25 MG TABLET (FP) PO SCH (10:00)
[2021-01-03] MEDS ORDERED: DIVALPROEX SODIUM 500 MG TABLET E.C. PO SCH (10:00)
[2021-01-03] MEDS ORDERED: FOLIC ACID 1 MG TABLET (FP) PO SCH (10:00)
[2021-01-03] MEDS ORDERED: CYCLOBENZAPRINE HCL 5 MG TABLET PO SCH (10:00)
[2021-01-03] MEDS ORDERED: ENOXAPARIN NA (PORCINE) 40 MG/0.4 ML DISP.SYRIN SQ SCH (10:00)
[2021-01-03] MEDS ORDERED: MONTELUKAST NA 10 MG TABLET PO SCH (22:00)
[2021-01-04] MEDS ORDERED: PHENYTOIN NA EXTENDED 100 MG CAPSULE (FP) PO SCH (06:00)
== END 2021-01-03 09:57 | disposition left against medical advice (07) | DRG 101 ==
LOC: JER 17:02 → JERBED 23:44
PROVIDERS: ADMIT Internal Medicine; ATTEND Internal Medicine
DX: R56.9 Unspecified convulsions (principal); E87.2 Acidosis; R31.9 Hematuria, unspecified; I10 Essential (primary) hypertension; K21.9 Gastro-esophageal reflux disease without esophagitis; F17.210 Nicotine dependence, cigarettes, uncomplicated; F16.10 Hallucinogen abuse, uncomplicated; J45.909 Unspecified asthma, uncomplicated; F19.10 Other psychoactive substance abuse, uncomplicated
CPT/HCPCS: 36415; 70450-TC; 71045-TC-FY; 72125-TC; 80053; 80164; 80175; 80185; 80307; 81003; 82962; 83605; 84703; 85025; 87086; 93005; 93010; 99285-25; C9803; U0003

== ENCOUNTER 2021-01-16 16:48 | Inpatient (IN) | payer MEDICARE, OTHER ==
[2021-01-16] MEDS ORDERED: LORazepam 2 MG/ML SDV VIAL ONE (17:02)
[2021-01-16] MEDS ORDERED: LACTATED RINGERS SOLUTION 1000 ML INFUS.BAG IV ONE (18:07)
[2021-01-16 19:27] LABS: POTASSIUM 3.9 mmol/L (3.5-5.1)
[2021-01-16 19:31] LABS: ALBUMIN 3.4 g/dl (3.4-5.0); BLOOD UREA NITROGEN 15.6 mg/dL (7-18); CALCIUM 9.2 mg/dL (8.5-10.1)
[2021-01-16 19:34] LABS: CREATININE 0.9 mg/dL (0.55-1.3)
[2021-01-16 19:36] LABS: BILIRUBIN,TOTAL 0.3 mg/dL (0.2-1); TOT PROT 6.9 g/dl (6.4-8.2)
[2021-01-16 20:05] LABS: HEMATOCRIT 35.6 % (32.4-45.2); HEMOGLOBIN 11.9 GM/dL (10.7-15.3); MCH 32.2 pg (25.7-33.7); MCHC 33.4 g/dl (32.0-36.0); MEAN CELL VOLUME 96.4 fl (80-96); RBC 3.69 M/mm3 (3.60-5.2); RDW 14.9 % (11.6-15.6)
[2021-01-16 20:12] LABS: PLATELET ESTIMATE NORMAL
[2021-01-16 20:15] LABS: MEAN PLT VOLUME 7.8 fl (7.5-11.1); PLATELET COUNT 297 K/MM3 (134-434); WHITE BLOOD COUNT 11.6 K/mm3 (4.0-10.0)
[2021-01-16] MEDS ORDERED: AZITHROMYCIN IVPB 500 MG in DEXTROSE 5%-WATER - 250 ML IVPB ONE (20:49)
[2021-01-16] MEDS ORDERED: VANCOMYCIN 1,000 MG in DEXTROSE 5%-WATER - 250 ML IVPB ONE (20:49)
[2021-01-16] MEDS ORDERED: CEFTRIAXONE 1 GM in DEXTROSE 5%-WATER - 100 ML IVPB ONE (20:49)
[2021-01-16] MEDS: SODIUM CHLORIDE 1,000 ML IV SCH (21:44)
[2021-01-16] MEDS ORDERED: DIVALPROEX NA *ER* EXTEND REL 500 MG TABLET.SA (FP) PO ONE (21:58)
[2021-01-16] MEDS ORDERED: DIVALPROEX SODIUM 500 MG TABLET E.C. ONE (22:14)
[2021-01-17] MEDS ORDERED: LORazepam 2 MG/ML SDV VIAL IVPUSH PRN (00:55)
[2021-01-17 03:06] LABS: METHADONE, UR NEGATIVE ng/ml (CUTOFF=300)
[2021-01-17 03:07] LABS: URINE AMPHETAMINES NEGATIVE ng/ml (CUTOFF=500); URINE BARBITURATES NEGATIVE ng/ml (CUTOFF=200); URINE BENZODIAZEPINES NEGATIVE ng/ml (CUTOFF=200)
[2021-01-17 03:08] LABS: EPI CELLS >36 /uL (0-25.1); HYALINE CASTS 2 /uL (0-3.1); PH,URINE 6.5 (5.0-8.0); URINE APPEARANCE TURBID; URINE BACTERIA >9,000 /uL (0-1359); URINE BILIRUBIN NEGATIVE (NEGATIVE); URINE COLOR YELLOW; URINE GLUCOSE (UA) NEGATIVE (NEGATIVE); URINE KETONE TRACE (NEGATIVE); URINE LEUK ESTERASE 3+ (NEGATIVE); URINE NITRITE NEGATIVE (NEGATIVE); URINE PROTEIN 1+ (NEGATIVE); URINE UROBILINOGEN 0.2 mg/dL (0.2-1.0); URINE WBC 4357 /uL (0-25.8)
[2021-01-17 03:22] LABS: COCAINE, UR NEGATIVE ng/ml (CUTOFF=300); OPIATES, URI POSITIVE ng/ml (CUTOFF=300); PHENCYCLIDINE,URINE POSITIVE ng/ml (CUTOFF=25)
[2021-01-17] MEDS ORDERED: ACETAMINOPHEN 1000 MG/100 ML VIAL (NON FORMULARY) IVPB ONE (06:11)
[2021-01-17] MEDS ORDERED: PHENYTOIN NA EXTENDED 100 MG CAPSULE (FP) ONE ×3 (06:20→21:30)
[2021-01-17] MEDS: PHENYTOIN NA EXTENDED 100 MG CAPSULE (FP) PO SCH ×3 (06:25→21:36)
[2021-01-17 07:07] LABS: HEMATOCRIT 36.2 % (32.4-45.2); HEMOGLOBIN 12.3 GM/dL (10.7-15.3); MCH 32.6 pg (25.7-33.7); MCHC 33.9 g/dl (32.0-36.0); MEAN CELL VOLUME 96.1 fl (80-96); MEAN PLT VOLUME 7.6 fl (7.5-11.1); PLATELET COUNT 303 K/MM3 (134-434); RBC 3.77 M/mm3 (3.60-5.2); RDW 14.5 % (11.6-15.6); WHITE BLOOD COUNT 8.9 K/mm3 (4.0-10.0)
[2021-01-17 07:25] LABS: POTASSIUM 3.8 mmol/L (3.5-5.1)
[2021-01-17 07:27] LABS: ALBUMIN 3.2 g/dl (3.4-5.0); BLOOD UREA NITROGEN 15.7 mg/dL (7-18)
[2021-01-17 07:30] LABS: PHOSPHOROUS 3.2 mg/dL (2.5-4.9)
[2021-01-17 07:32] LABS: BILIRUBIN,TOTAL 0.3 mg/dL (0.2-1); CREATININE 0.8 mg/dL (0.55-1.3); TOT PROT 6.7 g/dl (6.4-8.2)
[2021-01-17 09:46] LABS: URINE RBC 195.1 /uL (0-23.9); YEAST NONE SEEN (NEGATIVE)
[2021-01-17] MEDS ORDERED: lamoTRIgine 100 MG TABLET PO SCH (10:00)
[2021-01-17] MEDS ORDERED: ENOXAPARIN NA (PORCINE) 40 MG/0.4 ML DISP.SYRIN SQ SCH (10:00)
[2021-01-17 10:18] LABS: HIV INTERPRETATION NEGATIVE (NEGATIVE)
[2021-01-17] MEDS ORDERED: ACETAMINOPHEN 325 MG TABLET (FP) ONE (10:24)
[2021-01-17] MEDS ORDERED: DIVALPROEX SODIUM 500 MG TABLET E.C. ONE ×2 (10:24→21:30)
[2021-01-17] MEDS ORDERED: lamoTRIgine 100 MG TABLET ONE (10:25)
[2021-01-17] MEDS ORDERED: ENOXAPARIN NA (PORCINE) 40 MG/0.4 ML DISP.SYRIN SQ ONE (10:25)
[2021-01-17] MEDS ORDERED: ALBUTEROL SO4 HFA INHALER IH PRN (10:28)
[2021-01-17] MEDS ORDERED: AZITHROMYCIN IVPB 500 MG/250 ML BAG IVPB SCH (10:30)
[2021-01-17] MEDS ORDERED: CEFTRIAXONE 2 GM in DEXTROSE 5%-WATER 100 ML IVPB SCH (10:30)
[2021-01-17] MEDS: DIVALPROEX SODIUM 500 MG TABLET E.C. PO SCH ×2 (10:32→21:36)
[2021-01-17] MEDS ORDERED: CEFTRIAXONE 2 GM/100 ML BAG IVPB ONE (11:55)
[2021-01-17] MEDS ORDERED: AZITHROMYCIN IVPB 500 MG/250 ML BAG IVPB ONE (11:55)
[2021-01-17 19:28] LABS: EPI CELLS 9 /uL (0-25.1); HYALINE CASTS 1 /uL (0-3.1); PH,URINE 5.5 (5.0-8.0); URINE APPEARANCE CLOUDY; URINE BACTERIA 37 /uL (0-1359); URINE BILIRUBIN NEGATIVE (NEGATIVE); URINE COLOR DK YELLOW; URINE GLUCOSE (UA) NEGATIVE (NEGATIVE); URINE KETONE TRACE (NEGATIVE); URINE LEUK ESTERASE 1+ (NEGATIVE); URINE NITRITE NEGATIVE (NEGATIVE); URINE PROTEIN 1+ (NEGATIVE); URINE WBC 1246 /uL (0-25.8)
[2021-01-17 19:47] LABS: URINE RBC 249.7 /uL (0-23.9)
[2021-01-17] MEDS ORDERED: ALBUTEROL SO4 HFA INHALER IH ONE (21:28)
[2021-01-17] MEDS: SODIUM CHLORIDE 1,000 ML IV SCH (21:36)
[2021-01-18 00:05] VITALS: BP 142/88; PULSE 92; TEMP 98.2; BMI 18.7
[2021-01-18] MEDS ORDERED: PNEUMOC 13-VAL CONJ-DIP CRM/PF 0.5 ML DISP.SYRIN IM ONE (00:05)
[2021-01-18] MEDS ORDERED: ACETAMINOPHEN 500 MG TABLET (FP) PO ONE (05:15)
[2021-01-18] MEDS ORDERED: PNEUMOCOCCAL 23 VACCINE 0.5 ML VIAL IM ONE (05:45)
[2021-01-18] MEDS ORDERED: INSULIN SLIDING SCALE (NOVOLOG) 1 VIAL SQ SCH (07:00)
== END 2021-01-18 05:00 | disposition left against medical advice (07) | DRG 101 ==
LOC: JER 16:48 → JERBED 21:04 → J6WEST-2 01-17 23:33
PROVIDERS: ADMIT Internal Medicine; ATTEND Internal Medicine
DX: G40.909 Epilepsy, unspecified, not intractable, without status epilepticus (principal); I10 Essential (primary) hypertension; J44.9 Chronic obstructive pulmonary disease, unspecified; K21.9 Gastro-esophageal reflux disease without esophagitis; M79.7 Fibromyalgia; F31.9 Bipolar disorder, unspecified; F19.10 Other psychoactive substance abuse, uncomplicated; F17.210 Nicotine dependence, cigarettes, uncomplicated; R91.1 Solitary pulmonary nodule; F39 Unspecified mood [affective] disorder
CPT/HCPCS: 36415; 70450-TC; 71250-TC; 72125-TC; 80053; 80164; 80175; 80185; 80307; 81003; 83735; 84100; 84443; 84703; 85025; 85027; 86480; 87040; 87086; 87186; 87389; 87804; 93005; 93010; 99285-25; C9803; J0131; U0003; U0005

== ENCOUNTER 2021-02-04 13:56 | Inpatient (IN) | payer MEDICARE, OTHER ==
[2021-02-04] MEDS ORDERED: LORazepam 2 MG/ML SDV VIAL ONE (20:44)
[2021-02-04] MEDS ORDERED: LORazepam 2 MG/ML SDV VIAL IVPUSH ONE ×2 (20:45→20:50)
[2021-02-04] MEDS ORDERED: LORazepam 2 MG/ML SDV VIAL IVPUSH PRN (20:50)
[2021-02-04 22:11] LABS: HEMATOCRIT 39.3 % (32.4-45.2); HEMOGLOBIN 13.1 GM/dL (10.7-15.3); MCH 32.4 pg (25.7-33.7); MCHC 33.4 g/dl (32.0-36.0); MEAN PLT VOLUME 8.6 fl (7.5-11.1); PLATELET COUNT 256 K/MM3 (134-434); RBC 4.05 M/mm3 (3.60-5.2); RDW 14.6 % (11.6-15.6); WHITE BLOOD COUNT 9.4 K/mm3 (4.0-10.0)
[2021-02-04 22:17] LABS: ALBUMIN 3.9 g/dl (3.4-5.0); BLOOD UREA NITROGEN 17.9 mg/dL (7-18); CALCIUM 9.5 mg/dL (8.5-10.1)
[2021-02-04 22:20] LABS: BILIRUBIN,DIRECT 0.1 mg/dL (0.0-0.2)
[2021-02-04 22:22] LABS: BILIRUBIN,TOTAL 0.2 mg/dL (0.2-1); TOT PROT 7.4 g/dl (6.4-8.2)
[2021-02-04] MEDS ORDERED: FOSPHENYTOIN SODIUM IVPB ONE (23:07)
[2021-02-04] MEDS ORDERED: SODIUM CHLORIDE IVPB ONE (23:07)
[2021-02-04] MEDS: ZONISAMIDE 25 MG CAPSULE PO SCH (23:16)
[2021-02-05 01:25] LABS: MAGNESIUM 2.2 mg/dL (1.8-2.4)
[2021-02-05] MEDS ORDERED: PT OWN MED DRAWER 7, Y5N ONE ×3 (04:12→20:54)
[2021-02-05] MEDS: ACETAMINOPHEN 500 MG TABLET (FP) PO PRN (06:13)
[2021-02-05] MEDS ORDERED: ZONISAMIDE 25 MG CAPSULE PO SCH (10:00)
[2021-02-05] MEDS: ZONISAMIDE 25 MG CAPSULE PO SCH ×2 (10:19→21:15)
[2021-02-05] MEDS: PHENYTOIN NA EXTENDED 100 MG CAPSULE (FP) PO SCH (10:19)
[2021-02-06] MEDS ORDERED: ALBUTEROL SO4 HFA INHALER IH PRN (01:15)
[2021-02-06] MEDS ORDERED: ALBUTEROL SO4 HFA INHALER IH ONE (01:16)
[2021-02-06] MEDS ORDERED: PT OWN MED DRAWER 7, Y5N ONE ×2 (09:36→09:57)
[2021-02-06] MEDS: PHENYTOIN NA EXTENDED 100 MG CAPSULE (FP) PO SCH (09:44)
[2021-02-06] MEDS: ZONISAMIDE 25 MG CAPSULE PO SCH (09:45)
[2021-02-06] MEDS: ACETAMINOPHEN 500 MG TABLET (FP) PO PRN (09:54)
[2021-02-06] MEDS ORDERED: BUDESONIDE/FORMETEROL FUMARATE 160/4.5 mcg INHALER IH SCH (10:00)
[2021-02-06 13:22] VITALS: BP 102/64; PULSE 91; TEMP 97.9
[2021-02-06 15:41] VITALS: BMI 18.0
[2021-02-06] MEDS ORDERED: DIVALPROEX SODIUM 500 MG TABLET E.C. PO SCH (22:00)
== END 2021-02-06 16:30 | disposition home or self-care (01) | DRG 101 ==
LOC: J4S 16:12
PROVIDERS: ADMIT Psychiatry & Neurology Neurology; ATTEND Psychiatry & Neurology Neurology
PROC: 4A00X4Z Measurement of Central Nervous Electrical Activity, External Approach (ICD-10-PCS; principal; 2021-02-04)
DX: G40.909 Epilepsy, unspecified, not intractable, without status epilepticus (principal); F17.210 Nicotine dependence, cigarettes, uncomplicated
CPT/HCPCS: 36415; 80048; 80053; 80076; 83735; 84100; 85027; 93005; 93010; 95705; C9803; U0003; U0005

== ENCOUNTER 2022-08-06 04:16 | Day surgery (SDC) | payer MEDICARE, OTHER ==
[2022-08-05 09:53] VITALS: BMI 18.8
[~2022-08-06 04:16] MED LIST: DEXAMETHASONE SOD PHOSPHATE 10 MG/1 ML VIAL IVPUSH ONE; IOHEXOL 180 MG/1 ML ML IJ ONE; LIDOCAINE HCL 1% PRESERVATIVE FREE - 30ML VIAL IJ ONE
[2022-08-06 09:49] VITALS: RESP 18
[2022-08-06] MEDS ORDERED: SODIUM CHLORIDE 0.9% P/F 10 ML VIAL IJ ONE (10:51)
[2022-08-06] MEDS ORDERED: LIDOCAINE HCL 1% PRESERVATIVE FREE - 30ML VIAL IJ ONE (11:09)
[2022-08-06] MEDS ORDERED: IOHEXOL 180 MG/1 ML ML IJ ONE (11:12)
[2022-08-06] MEDS ORDERED: DEXAMETHASONE SOD PHOSPHATE 10 MG/1 ML VIAL IVPUSH ONE (11:18)
[2022-08-06 12:18] VITALS: BP 100/75; PULSE 84; TEMP 97.1
== END 2022-08-06 12:15 | disposition home or self-care (01) ==
LOC: JASU-SURG 04:16
PROVIDERS: ATTEND Pain Medicine Pain Medicine
PROC: 3E0R33Z Introduction of Anti-inflammatory into Spinal Canal, Percutaneous Approach (ICD-10-PCS; 2022-08-06)
PROC: 3E0R3BZ Introduction of Anesthetic Agent into Spinal Canal, Percutaneous Approach (ICD-10-PCS; principal; 2022-08-06 10:30)
DX: M54.16 Radiculopathy, lumbar region (principal)
CPT/HCPCS: 76000-TC-FY; J1100

== ENCOUNTER 2022-09-14 05:40 | Day surgery (SDC) | payer MEDICARE, OTHER ==
[2022-09-13 15:48] VITALS: BMI 18.8
[~2022-09-14 05:40] MED LIST changes: +BUPIVACAINE HCL/PF 0.5% (5MG/ML) 10 ML VIAL IJ ONE; -DEXAMETHASONE SOD PHOSPHATE 10 MG/1 ML VIAL IVPUSH ONE; +TRIAMCINOLONE ACET 40MG/1ML VIAL IJ ONE
[2022-09-14] MEDS ORDERED: BUPIVACAINE HCL/PF 0.5% (5MG/ML) 10 ML VIAL ONE (07:37)
[2022-09-14] MEDS ORDERED: TRIAMCINOLONE ACET 40MG/1ML VIAL ONE (07:37)
[2022-09-14] MEDS ORDERED: LIDOCAINE HCL/PF 1% SDV 5ML VIAL ONE (07:38)
[2022-09-14] MEDS ORDERED: LIDOCAINE HCL 1% PRESERVATIVE FREE - 30ML VIAL IJ ONE (11:31)
[2022-09-14] MEDS ORDERED: IOHEXOL 180 MG/1 ML ML IJ ONE (11:35)
[2022-09-14] MEDS ORDERED: BUPIVACAINE HCL/PF 0.5% (5MG/ML) 10 ML VIAL IJ ONE (11:36)
[2022-09-14] MEDS ORDERED: TRIAMCINOLONE ACET 40MG/1ML VIAL IJ ONE (11:36)
[2022-09-14 12:53] VITALS: BP 110/76; PULSE 86; RESP 20; TEMP 97.9
== END 2022-09-14 12:18 | disposition home or self-care (01) ==
LOC: JASU-SURG 05:40
PROVIDERS: ATTEND Pain Medicine Pain Medicine
PROC: 3E0U3BZ Introduction of Anesthetic Agent into Joints, Percutaneous Approach (ICD-10-PCS; 2022-09-14)
PROC: 3E0U33Z Introduction of Anti-inflammatory into Joints, Percutaneous Approach (ICD-10-PCS; principal; 2022-09-14 11:00)
DX: M53.3 Sacrococcygeal disorders, not elsewhere classified (principal)
CPT/HCPCS: 76000-TC-FY

== ENCOUNTER 2022-11-19 10:08 | Observation (INO) | payer MEDICARE, OTHER ==
[2022-11-19] MEDS ORDERED: VALPROATE SODIUM 500 MG/5 ML VIAL IVPB ONE (10:31)
[2022-11-19] MEDS ORDERED: VALPROATE SODIUM 500 MG/5 ML VIAL ONE (10:32)
[2022-11-19] MEDS ORDERED: LORazepam 2 MG/ML SDV VIAL IVPUSH ONE (10:32)
[2022-11-19] MEDS ORDERED: ACETAMINOPHEN 1000 MG/100 ML BAG IVPB ONE ×2 (11:03→22:59)
[2022-11-19] MEDS ORDERED: ACETAMINOPHEN INJECTION 100 ML IVPB ONE (11:21)
[2022-11-19] MEDS ORDERED: METOCLOPRAMIDE HCL INJECTION 10 MG/2 ML VIAL IVPUSH ONE (12:12)
[2022-11-19] MEDS ORDERED: METOCLOPRAMIDE HCL INJECTION 10 MG/2 ML VIAL ONE (12:24)
[2022-11-19 12:30] LABS: INR 1.01 (0.83-1.09); PROTHROMBIN TIME (PATIENT) 11.6 SEC (9.7-13.0)
[2022-11-19 12:38] LABS: EPI CELLS 12 /uL (0-25.1); HYALINE CASTS 2 /uL (0-3.1); URINE APPEARANCE CLEAR; URINE BACTERIA >9,000 /uL (0-1359); URINE BILIRUBIN NEGATIVE (NEGATIVE); URINE COLOR YELLOW; URINE GLUCOSE (UA) NEGATIVE (NEGATIVE); URINE KETONE TRACE (NEGATIVE); URINE LEUK ESTERASE 2+ (NEGATIVE); URINE NITRITE POSITIVE (NEGATIVE); URINE PROTEIN NEGATIVE (NEGATIVE); URINE RBC 87 /uL (0-23.9); URINE UROBILINOGEN 0.2 mg/dL (0.2-1.0); URINE WBC 408 /uL (0-25.8)
[2022-11-19 13:03] LABS: ALBUMIN 3.3 g/dl (3.4-5.0); BLOOD UREA NITROGEN 16.2 mg/dL (7-18); CALCIUM 9.4 mg/dL (8.5-10.1)
[2022-11-19 13:07] LABS: CREATININE 0.9 mg/dL (0.55-1.3)
[2022-11-19 13:08] LABS: BILIRUBIN,TOTAL 0.3 mg/dL (0.2-1); TOT PROT 7.2 g/dl (6.4-8.2)
[2022-11-19] MEDS ORDERED: NITROFURANTOIN MACROCRYSTAL 50 MG CAPSULE (FP) PO SCH (16:30)
[2022-11-19] MEDS ORDERED: NITROFURANTOIN MACROCRYSTAL 50 MG CAPSULE (FP) ONE (16:56)
[2022-11-19 17:01] LABS: BASO % 0.6 % (0-2.0); EOS % 0.5 % (0-4.5); HEMATOCRIT 38.6 % (32.4-45.2); LYMPH % 19.6 % (8-40); MCH 32.7 pg (25.7-33.7); MCHC 33.6 g/dl (32.0-36.0); MEAN CELL VOLUME 97.1 fl (80-96); MEAN PLT VOLUME 7.4 fl (7.5-11.1); MONO % 4.2 % (3.8-10.2); NEUT % 75.1 % (42.8-82.8); PLATELET COUNT 264 10^3/uL (134-434); RBC 3.98 M/mm3 (3.60-5.2); RDW 14.9 % (11.6-15.6); WHITE BLOOD COUNT 9.3 K/mm3 (4.0-10.0)
[2022-11-19 17:49] VITALS: RESP 18
[2022-11-19 18:50] VITALS: BMI 18.8
[2022-11-20 08:15] LABS: URINE BENZODIAZEPINES NEGATIVE (NEGATIVE)
[2022-11-20 08:17] LABS: COCAINE, UR NEGATIVE (NEGATIVE); METHADONE, UR NEGATIVE (NEGATIVE); OPIATES, URI NEGATIVE (NEGATIVE); URINE AMPHETAMINES NEGATIVE (NEGATIVE); URINE BARBITURATES NEGATIVE (NEGATIVE)
[2022-11-20] MEDS ORDERED: NICOTINE POLACRILEX 2 MG GUM BUC PRN (08:18)
[2022-11-20 08:35] LABS: PHENCYCLIDINE,URINE POSITIVE (NEGATIVE)
[2022-11-20 09:11] LABS: BASO % 0.6 % (0-2.0); EOS % 1.6 % (0-4.5); HEMATOCRIT 41.3 % (32.4-45.2); HEMOGLOBIN 13.7 GM/dL (10.7-15.3); LYMPH % 29.6 % (8-40); MCH 32.3 pg (25.7-33.7); MCHC 33.2 g/dl (32.0-36.0); MEAN CELL VOLUME 97.5 fl (80-96); MEAN PLT VOLUME 7.3 fl (7.5-11.1); MONO % 6.6 % (3.8-10.2); NEUT % 61.6 % (42.8-82.8); PLATELET COUNT 242 10^3/uL (134-434); RBC 4.24 M/mm3 (3.60-5.2); RDW 14.9 % (11.6-15.6); WHITE BLOOD COUNT 7.5 K/mm3 (4.0-10.0)
[2022-11-20 09:31] LABS: CALCIUM 9.8 mg/dL (8.5-10.1)
[2022-11-20 09:32] LABS: ALBUMIN 3.4 g/dl (3.4-5.0)
[2022-11-20 09:35] LABS: CREATININE 0.8 mg/dL (0.55-1.3)
[2022-11-20 09:37] LABS: BILIRUBIN,TOTAL 0.3 mg/dL (0.2-1); TOT PROT 7.1 g/dl (6.4-8.2)
[2022-11-20 09:38] LABS: PHOSPHOROUS 3.6 mg/dL (2.5-4.9)
[2022-11-20] MEDS ORDERED: lamoTRIgine 100 MG TABLET PO SCH (10:00)
[2022-11-20] MEDS ORDERED: FLUTICASONE/UMECLIDIN/VILANTER(200-62.5-25 TRELEGY ELLIPTA) INAHLER IH SCH (10:00)
[2022-11-20] MEDS ORDERED: FOLIC ACID 1 MG TABLET (FP) PO SCH (10:00)
[2022-11-20] MEDS ORDERED: PATIENT'S OWN MEDICATION (NON-FORMULARY) (Mirabegron [Myrbetriq] 25 MG Tab.Er.24h) PO SCH (10:00)
[2022-11-20] MEDS ORDERED: DIVALPROEX SODIUM 500 MG TABLET E.C. PO ONE (10:00)
[2022-11-20] MEDS ORDERED: CYCLOBENZAPRINE HCL 10 MG TABLET (FP) PO PRN (10:40)
[2022-11-20] MEDS ORDERED: LIDOCAINE 5% TOPICAL PATCH TP SCH (10:45)
[2022-11-20] MEDS ORDERED: ACETAMINOPHEN 1000 MG/100 ML BAG IVPB SCH (10:45)
[2022-11-20 13:09] VITALS: BP 116/73; PULSE 82; TEMP 98.6
[2022-11-20] MEDS ORDERED: GABAPENTIN 300 MG CAPSULE PO SCH (14:00)
[2022-11-20] MEDS ORDERED: PHENYTOIN NA EXTENDED 100 MG CAPSULE (FP) PO SCH (14:00)
[2022-11-20] MEDS ORDERED: AMITRIPTYLINE HCL 50 MG TABLET PO SCH (22:00)
[2022-11-20] MEDS ORDERED: MONTELUKAST NA 10 MG TABLET PO SCH (22:00)
[2022-11-20] MEDS ORDERED: LIDOCAINE PATCH REMOVAL MC SCH (22:00)
== END 2022-11-20 18:34 | disposition home or self-care (01) ==
LOC: JER 10:08 → JERBED 14:10 → J7W 18:21
PROVIDERS: ADMIT Internal Medicine; ATTEND Internal Medicine
DX: T81.89XA Other complications of procedures, not elsewhere classified, initial encounter (principal); R41.0 Disorientation, unspecified; R56.9 Unspecified convulsions; R42 Dizziness and giddiness; R51.9 Headache, unspecified; F31.9 Bipolar disorder, unspecified; I10 Essential (primary) hypertension; J45.909 Unspecified asthma, uncomplicated; M79.7 Fibromyalgia; Z88.0 Allergy status to penicillin; Z88.2 Allergy status to sulfonamides; Z88.8 Allergy status to other drugs, medicaments and biological substances; Z91.040 Latex allergy status; Z91.199 Patient's noncompliance with other medical treatment and regimen due to unspecified reason; Y69 Unspecified misadventure during surgical and medical care
CPT/HCPCS: 0241U-QW; 36415; 70450-TC; 70496-TC; 71045-TC-FY; 74176-TC; 80053; 80164; 80185; 80307; 81003; 82550; 82962; 83605; 83735; 84100; 85025; 85610; 85730; 87086; 87186; 93005; 93010; 96374; 96375; 96376; 97116-GP; 97161-GP; 99285-25; G0378

== ENCOUNTER → 2022-11-19 | Day surgery (SDC) | payer MEDICARE, OTHER ==
[2022-11-17 13:41] VITALS: BMI 20.5
[~2022-11-19] MED LIST changes: -BUPIVACAINE HCL/PF 0.5% (5MG/ML) 10 ML VIAL IJ ONE; -IOHEXOL 180 MG/1 ML ML IJ ONE; +LIDOCAINE 1% P/F 10 MG/ML VIAL PNB ONE; -LIDOCAINE HCL 1% PRESERVATIVE FREE - 30ML VIAL IJ ONE; +LIDOCAINE HCL/PF 1% SDV 5ML VIAL ONE; +PROPOFOL 20 ML ONE; -TRIAMCINOLONE ACET 40MG/1ML VIAL IJ ONE
[2022-11-19 07:59] VITALS: BP 112/84; PULSE 108; RESP 20; TEMP 98.8
== END | disposition home or self-care (01) ==
LOC: JASU-SURG 04:05
PROVIDERS: ATTEND Pain Medicine Pain Medicine
PROC: 01HY3MZ Insertion of Neurostimulator Lead into Peripheral Nerve, Percutaneous Approach (ICD-10-PCS; principal; 2022-11-19 09:00)
DX: G89.4 Chronic pain syndrome (principal)
CPT/HCPCS: 64555; C1778; 76000-TC-FY; 82962

== ENCOUNTER 2022-12-24 04:02 | Day surgery (SDC) | payer MEDICARE, OTHER ==
[2022-12-21 12:20] VITALS: BMI 20.5
[2022-12-24] MEDS ORDERED: LIDOCAINE HCL/PF 1% SDV 5ML VIAL ONE (07:09)
[2022-12-24] MEDS ORDERED: LIDOCAINE HCL/PF 2% SDV 5ML VIAL ONE (07:09)
[2022-12-24 08:39] VITALS: RESP 18
[2022-12-24] MEDS ORDERED: LIDOCAINE HCL 1% PRESERVATIVE FREE - 30ML VIAL IJ ONE ×2 (09:45)
[2022-12-24 10:47] VITALS: BP 113/83; PULSE 87; TEMP 98.8
== END 2022-12-24 11:05 | disposition home or self-care (01) ==
LOC: JASU-SURG 04:02
PROVIDERS: ATTEND Pain Medicine Pain Medicine
PROC: 01HY3MZ Insertion of Neurostimulator Lead into Peripheral Nerve, Percutaneous Approach (ICD-10-PCS; principal; 2022-12-24 09:30)
DX: G89.4 Chronic pain syndrome (principal); M25.562 Pain in left knee; I10 Essential (primary) hypertension; E11.9 Type 2 diabetes mellitus without complications; Z79.84 Long term (current) use of oral hypoglycemic drugs
CPT/HCPCS: 64555; C1778

== ENCOUNTER 2023-07-04 11:13 | Emergency (ER) | payer MEDICARE, OTHER ==
[2023-07-04 11:25] VITALS: RESP 18; BMI 20.5
[2023-07-04] MEDS ORDERED: ACETAMINOPHEN 1000 MG/100 ML BAG IVPB ONE (12:23)
[2023-07-04] MEDS ORDERED: ACETAMINOPHEN INJECTION 100 ML IVPB ONE (12:35)
[2023-07-04 12:46] LABS: BASO % 0.6 % (0-2.0); EOS % 1.4 % (0-4.5); HEMATOCRIT 35.1 % (32.4-45.2); HEMOGLOBIN 12.1 GM/dL (10.7-15.3); LYMPH % 24.7 % (8-40); MCH 31.4 pg (25.7-33.7); MCHC 34.4 g/dl (32.0-36.0); MEAN CELL VOLUME 91.2 fl (80-96); MEAN PLT VOLUME 6.8 fl (7.5-11.1); MONO % 8.8 % (3.8-10.2); NEUT % 64.5 % (42.8-82.8); PLATELET COUNT 345 10^3/uL (134-434); RBC 3.85 M/mm3 (3.60-5.2); RDW 13.4 % (11.6-15.6); WHITE BLOOD COUNT 9.1 K/mm3 (4.0-10.0)
[2023-07-04 13:11] LABS: POTASSIUM 3.9 mmol/L (3.5-5.1)
[2023-07-04 13:27] LABS: ALBUMIN 3.4 g/dl (3.4-5.0); BLOOD UREA NITROGEN 14.2 mg/dL (7-18); CALCIUM 8.9 mg/dL (8.5-10.1); CREATININE 0.7 mg/dL (0.55-1.3)
[2023-07-04 13:29] LABS: BILIRUBIN,TOTAL 0.3 mg/dL (0.2-1); TOT PROT 7.4 g/dl (6.4-8.2)
[2023-07-04] MEDS ORDERED: morphine CARPU-JECT 4 MG/1 ML DISP.SYRIN IVPUSH ONE (14:09)
[2023-07-04] MEDS ORDERED: morphine SULFATE 4 MG/ML VIAL ONE (14:11)
[2023-07-04 14:42] LABS: EPI CELLS 6 /uL (0-25.1); HYALINE CASTS 0 /uL (0-3.1); PH,URINE 5.5 (5.0-8.0); URINE APPEARANCE CLEAR; URINE BACTERIA 173 /uL (0-1359); URINE BILIRUBIN 1+ (NEGATIVE); URINE COLOR DK YELLOW; URINE GLUCOSE (UA) NEGATIVE (NEGATIVE); URINE KETONE TRACE (NEGATIVE); URINE LEUK ESTERASE 1+ (NEGATIVE); URINE NITRITE NEGATIVE (NEGATIVE); URINE PROTEIN TRACE (NEGATIVE); URINE RBC 277 /uL (0-23.9); URINE WBC 1092 /uL (0-25.8)
[2023-07-04] MEDS ORDERED: CEFTRIAXONE 1 GM in DEXTROSE 5%-WATER - 50 ML IVPB ONE (15:03)
[2023-07-04] MEDS ORDERED: CEFTRIAXONE 1 GM/50 ML BAG ONE (15:44)
[2023-07-04 16:59] VITALS: BP 117/83; PULSE 82; TEMP 97.5
== END 2023-07-04 17:57 | disposition home or self-care (01) ==
LOC: JER 11:13
PROC: 3E03329 Introduction of Other Anti-infective into Peripheral Vein, Percutaneous Approach (ICD-10-PCS; principal; 2023-07-04)
PROC: 3E033NZ Introduction of Analgesics, Hypnotics, Sedatives into Peripheral Vein, Percutaneous Approach (ICD-10-PCS; 2023-07-04)
PROC: 3E033GC Introduction of Other Therapeutic Substance into Peripheral Vein, Percutaneous Approach (ICD-10-PCS; 2023-07-04)
DX: R10.30 Lower abdominal pain, unspecified (principal); N92.6 Irregular menstruation, unspecified; N39.0 Urinary tract infection, site not specified
CPT/HCPCS: 36415; 74176-TC; 76830-TC; 80053; 81003; 84703; 85025; 87086; 87186; 96365; 96375; 99285-25

== ENCOUNTER 2023-08-19 04:48 | Day surgery (SDC) | payer MEDICARE, OTHER ==
[2023-08-18 11:11] VITALS: BMI 20.4
[2023-08-19] MEDS ORDERED: LIDOCAINE HCL/PF 2% SDV 5ML VIAL ONE (07:35)
[2023-08-19] MEDS ORDERED: LIDOCAINE HCL/PF 1% SDV 5ML VIAL ONE (07:36)
[2023-08-19] MEDS ORDERED: ACETAMINOPHEN 500 MG TABLET (FP) PO PRN (13:01)
[2023-08-19] MEDS ORDERED: MIDAZOLAM HCL 2 MG/2 ML SINGLE DOSE VIAL ONE (16:15)
[2023-08-19] MEDS ORDERED: FENTANYL CITRATE/PF 50 MCG/ML VIAL ONE (16:15)
[2023-08-19] MEDS ORDERED: CLINDAMYCIN 600 MG PREMIX BAG IVPB ONE (16:20)
[2023-08-19] MEDS ORDERED: CLINDAMYCIN 600MG PREMIX IVPB 600 MG/50 ML BAG IVPB ONE (16:24)
[2023-08-19] MEDS ORDERED: LIDOCAINE HCL/PF 2% SDV 5ML VIAL INF ONE ×2 (17:05)
[2023-08-19] MEDS ORDERED: LIDOCAINE HCL 1% PRESERVATIVE FREE - 30ML VIAL IJ ONE (17:05)
[2023-08-19 18:03] VITALS: TEMP 97.5
[2023-08-19 19:35] VITALS: BP 120/80; PULSE 80; RESP 20
== END 2023-08-19 19:25 | disposition home or self-care (01) ==
LOC: JASU-SURG 04:48
PROVIDERS: ATTEND Pain Medicine Pain Medicine
PROC: 00HU3MZ Insertion of Neurostimulator Lead into Spinal Canal, Percutaneous Approach (ICD-10-PCS; principal; 2023-08-19 16:30)
DX: M96.1 Postlaminectomy syndrome, not elsewhere classified (principal); G89.4 Chronic pain syndrome; M54.16 Radiculopathy, lumbar region
CPT/HCPCS: 63650; C1778; 76000-TC-FY; 81025; C1889; C1897

== ENCOUNTER 2024-02-17 03:53 | Day surgery (SDC) | payer MEDICARE, OTHER ==
[2024-02-13 11:39] VITALS: BMI 20.4
[2024-02-17] MEDS ORDERED: BUPIVACAINE HCL/PF 0.5% (5MG/ML) 10 ML VIAL ONE (07:21)
[2024-02-17] MEDS ORDERED: LIDOCAINE HCL/PF 1% SDV 5ML VIAL ONE (07:21)
[2024-02-17] MEDS ORDERED: BUPIVACAINE HCL/PF 0.25% (2.5MG/ML) 10 ML VIAL ONE (07:21)
[2024-02-17] MEDS ORDERED: ACETAMINOPHEN 500 MG TABLET (FP) PO PRN (08:36)
[2024-02-17] MEDS: LIDOCAINE 1% P/F 10 MG/ML VIAL INF ONE (09:08)
[2024-02-17 09:26] VITALS: BP 118/78; PULSE 89; RESP 18; TEMP 97.8
== END 2024-02-17 10:52 | disposition home or self-care (01) ==
LOC: JASU-SURG 03:53
PROVIDERS: ATTEND Pain Medicine Pain Medicine
PROC: 01HY3MZ Insertion of Neurostimulator Lead into Peripheral Nerve, Percutaneous Approach (ICD-10-PCS; principal; 2024-02-17 09:00)
DX: G89.4 Chronic pain syndrome (principal)
CPT/HCPCS: 64555; C1778; 76000-TC-FY

== ENCOUNTER 2024-05-24 05:03 | Day surgery (SDC) | payer MEDICARE, OTHER ==
[2024-05-23 11:47] VITALS: BMI 19.2
[2024-05-24] MEDS ORDERED: LIDOCAINE HCL/PF 1% SDV 5ML VIAL ONE (07:10)
[2024-05-24] MEDS ORDERED: BUPIVACAINE HCL/PF 0.25% (2.5MG/ML) 10 ML VIAL ONE (07:10)
[2024-05-24] MEDS: BUPIVACAINE HCL/PF 0.25% (2.5MG/ML) 10 ML VIAL IJ ONE (08:35)
[2024-05-24] MEDS: LIDOCAINE HCL 1% PRESERVATIVE FREE - 30ML VIAL IJ ONE (08:35)
[2024-05-24 10:02] VITALS: TEMP 98.3
[2024-05-24 10:47] VITALS: BP 147/100; PULSE 103; RESP 20
== END 2024-05-24 10:50 | disposition home or self-care (01) ==
LOC: JASU-SURG 05:03
PROVIDERS: ATTEND Pain Medicine Pain Medicine
PROC: 01HY0MZ Insertion of Neurostimulator Lead into Peripheral Nerve, Open Approach (ICD-10-PCS; principal; 2024-05-24 08:00)
DX: G89.4 Chronic pain syndrome (principal)
CPT/HCPCS: 64575; C1778; 76000-TC-FY

== ENCOUNTER 2024-07-01 14:04 | Emergency (ER) | payer MEDICARE, OTHER ==
[2024-07-01 15:02] VITALS: TEMP 97.9; BMI 18.8
[2024-07-01] MEDS ORDERED: ACETAMINOPHEN 500 MG TABLET (FP) ONE (15:27)
[2024-07-01] MEDS: ACETAMINOPHEN 500 MG TABLET (FP) PO ONE (15:34)
[2024-07-01 16:30] VITALS: BP 157/108; PULSE 94; RESP 18
[2024-07-01] MEDS: METHOCARBAMOL 500 MG TABLET PO ONE (16:55)
[2024-07-01] MEDS ORDERED: METHOCARBAMOL 500 MG TABLET ONE ×2 (17:06→17:15)
== END 2024-07-01 17:28 | disposition home or self-care (01) ==
LOC: JER 14:04
DX: M54.50 Low back pain, unspecified (principal); W22.8XXA Striking against or struck by other objects, initial encounter
CPT/HCPCS: 71101-TC-LT-FY; 72170-TC-FY; 73030-TC-LT-FY; 99284-25

== ENCOUNTER 2024-07-06 16:30 | Emergency (ER) | payer MEDICARE, OTHER ==
[2024-07-06 16:37] VITALS: BP 124/87; PULSE 102; RESP 18; TEMP 98.4; BMI 20.5
[2024-07-06] MEDS ORDERED: DEXAMETHASONE SOD PHOSPHATE 10 MG/1 ML VIAL ONE (18:04)
[2024-07-06] MEDS ORDERED: diazePAM 5 MG TABLET ONE (18:04)
[2024-07-06] MEDS ORDERED: LIDOCAINE 4% PATCH TP ONE (18:05)
[2024-07-06] MEDS ORDERED: ACETAMINOPHEN 325 MG TABLET (FP) ONE (18:06)
[2024-07-06] MEDS: ACETAMINOPHEN 325 MG TABLET (FP) PO ONE (18:15)
[2024-07-06] MEDS: LIDOCAINE 4% PATCH TP ONE (18:15)
[2024-07-06] MEDS: DEXAMETHASONE SOD PHOSPHATE 10 MG/1 ML VIAL IM ONE (18:15)
[2024-07-06] MEDS: diazePAM 5 MG TABLET PO ONE (18:16)
== END 2024-07-06 20:17 | disposition home or self-care (01) ==
LOC: JER 16:30
PROC: 3E023GC Introduction of Other Therapeutic Substance into Muscle, Percutaneous Approach (ICD-10-PCS; principal; 2024-07-06)
DX: M79.10 Myalgia, unspecified site (principal)
CPT/HCPCS: 96372; 99284-25; J1100

== ENCOUNTER 2024-07-12 16:44 | Emergency (ER) | payer MEDICARE, OTHER ==
[2024-07-12 16:57] VITALS: BP 133/96; PULSE 101; RESP 13; TEMP 98.8; BMI 20.5
[2024-07-12] MEDS ORDERED: LIDOCAINE 4% PATCH TP ONE (19:37)
[2024-07-12] MEDS: LIDOCAINE 5% TOPICAL PATCH TP ONE (19:43)
[2024-07-12] MEDS ORDERED: ONDANSETRON *ODT* 4 MG TABLET ONE (20:19)
[2024-07-12] MEDS: ONDANSETRON *ODT* 4 MG TABLET SL ONE (20:22)
[2024-07-13] MEDS ORDERED: LIDOCAINE PATCH REMOVAL MC SCH (07:00)
== END 2024-07-12 20:26 | disposition home or self-care (01) ==
LOC: JERFT 16:44
DX: M54.50 Low back pain, unspecified (principal); R91.1 Solitary pulmonary nodule; R07.81 Pleurodynia
CPT/HCPCS: 71046-TC-FY; 99283-25; Q0162

== ENCOUNTER 2025-05-03 07:10 | Day surgery (SDC) | payer MEDICARE, OTHER ==
[2025-05-03] MEDS: LIDOCAINE HCL 1% PRESERVATIVE FREE - 30ML VIAL IJ ONE
[2025-05-03] MEDS: BUPIVACAINE HCL/PF 0.25% (2.5MG/ML) 10 ML VIAL IJ ONE
[2025-05-03] MEDS: LIDOCAINE HCL/PF 2% SDV 5ML VIAL INF ONE
[2025-05-03] MEDS ORDERED: ACETAMINOPHEN 500 MG TABLET (FP) PO PRN (08:53)
[2025-05-03] MEDS ORDERED: LIDOCAINE HCL/PF 2% SDV 5ML VIAL ONE (10:20)
[2025-05-03] MEDS ORDERED: LIDOCAINE HCL/PF 1% SDV 5ML VIAL ONE (10:20)
[2025-05-03] MEDS: CLINDAMYCIN 600MG PREMIX IVPB 600 MG/50 ML BAG IVPB ONE (12:19)
[2025-05-03 14:44] VITALS: BP 144/85; PULSE 81; RESP 18; TEMP 98.2
== END 2025-05-03 16:50 | disposition home or self-care (01) ==
LOC: JASU-SURG 07:10
PROVIDERS: ATTEND Pain Medicine Pain Medicine
PROC: 01HY0MZ Insertion of Neurostimulator Lead into Peripheral Nerve, Open Approach (ICD-10-PCS; principal; 2025-05-03 13:23)
DX: G89.4 Chronic pain syndrome (principal)
CPT/HCPCS: 64575; C1778

== ENCOUNTER 2025-07-12 11:44 | Emergency (ER) | payer MEDICARE, OTHER ==
[2025-07-12 12:11] VITALS: BMI 18.1
[2025-07-12] MEDS: KETOROLAC TROMETHAMINE 30 MG/1 ML VIAL IM ONE (12:11)
[2025-07-12] MEDS ORDERED: LORazepam 2 MG/ML SDV VIAL ONE (13:14)
[2025-07-12] MEDS: LACTATED RINGERS SOLUTION 1000 ML INFUS.BAG IV ONE (14:03)
[2025-07-12 14:07] LABS: ABSOLUTE IMMATURE GRANULOCYTES 0.04 x10^3/uL (0.0-0.031); BASOPHILS # 0.03 x10^3/uL (0.01-0.08); EOSINOPHIL % 0.7 % (0.7-5.8); EOSINOPHILS # 0.07 x10^3/uL (0.04-0.36); MCHC 31.3 g/dl (32.2-35.5); MEAN CELL VOLUME 94.3 fl (79.4-94.8); MEAN PLT VOLUME 8.4 fl (9.4-12.3); MONOCYTE # 0.78 x10^3/uL (0.24-0.86); MONOCYTE % 7.8 % (4.7-12.5); RDW 14.5 % (12.3-16.6)
[2025-07-12 14:08] LABS: BG HCT 38.0 % (32.4-45.2); VENOUS BASE EXCESS 1.9 mmol/L (-2-2); VENOUS O2 SATURATION 42.1 % (70-80); VENOUS PCO2 48.8 mmHg (38-52); VENOUS PH 7.374 (7.310-7.410)
[2025-07-12 14:28] LABS: GLUCOSE,RANDOM 57 mg/dL (74-106)
[2025-07-12 14:29] LABS: CO2 26 mmol/L (21-32); TOT PROT 7.0 g/dl (6.4-8.2)
[2025-07-12 14:31] LABS: ALK PHOS 107 U/L (40-150)
[2025-07-12 14:34] LABS: CREATININE 0.82 mg/dL (0.55-1.3); SGOT/AST 23 U/L (5-34); SGPT/ALT 15 U/L (0-55)
[2025-07-12] MEDS ORDERED: DEXTROSE 50%-WATER 25 GM/50 ML DISP.SYRIN ONE (14:41)
[2025-07-12] MEDS: DEXTROSE 50%-WATER - 25 GM/50 ML VIAL IVPUSH ONE (14:45)
[2025-07-12] MEDS: SODIUM CHLORIDE 0.9% 500 ML INFUS.BAG IV ONE (17:26)
[2025-07-12 18:17] VITALS: BP 130/94; PULSE 94; RESP 18; TEMP 97.3
== END 2025-07-12 18:46 | disposition home or self-care (01) ==
LOC: JER 11:44
PROC: 3E033GC Introduction of Other Therapeutic Substance into Peripheral Vein, Percutaneous Approach (ICD-10-PCS; principal; 2025-07-12)
DX: R41.82 Altered mental status, unspecified (principal); R00.0 Tachycardia, unspecified; R45.1 Restlessness and agitation; R53.83 Other fatigue
CPT/HCPCS: 36415; 70450-TC; 76937; 80053; 80307; 82803; 82962; 83605; 84484; 85025; 93005; 93010; 99291